=== PATIENT | male | born 1955 | race Caucasian/White ===

== ENCOUNTER 2018-02-26 14:06 | Emergency (ER) | payer MEDICARE, OTHER ==
[~2018-02-26] VITALS: Ht 172.7 cm; Wt 72.6 kg
--- OUTSIDE RECORDS SUMMARY | 2018-02-26 14:16 | XMS REPORT | Clinical Summary ---
Author Author Admin, E Organization [facility] Address Unknown Phone Unavailable Allergies, Adverse Reactions, Alerts Allergy Name Reaction Description Start Date Severity Status Provider NEURONTIN makes him paranoid Critical Active Wily Gonzalez DO LIDODERM preload Critical Active Paula Cooney RN BACTRIM preload Critical Active Paula Cooney RN Conditions or Problems Problem Name Problem Code Onset Date Status Entry Date Provider Comment Standard Description Annotate HYPERTENSION 401.9 Active Megan Vargas RN Unspecified essential hypertension BACK PAIN, LUMBAR 724.2 Active Esvin PAULA Lumbago ANKLE PAIN 719.47 Active Esvin PAULA Pain in joint involving ankle and foot GERD 530.81 Active Esvin PAULA Esophageal reflux ANXIETY 300.00 Active Esvin PAULA Anxiety state, unspecified FH DIABETES V18.0 Resolved Wily Gonzalez DO Family history of diabetes mellitus SPECIAL SCREENING MALIGNANT NEOPLASM OF PROSTATE V76.44 Active Esvin PAULA Screening for malignant neoplasms of prostate ANEMIA 285.9 Active Esvin PAULA Anemia, unspecified Tinea corporis 110.5 Resolved Wily Gonzalez DO Dermatophytosis of the body Tinea corporis 110.5 Resolved Wily Gonzalez DO Dermatophytosis of the body Hemorrhoids 455.6 Active Wily Gonzalez DO Unspecified hemorrhoids without mention of complication Nocturia 788.43 Resolved Wily Gonzalez DO Nocturia U T I 599.0 Inactive Wily Gonzalez DO Urinary tract infection, site not specified U R I 465.9 Inactive Wily Gonzalez DO Acute upper respiratory infections of unspecified site Health screening V70.0 Active Wily Gonzalez DO Routine general medical examination at a health care facility FH DIABETES ICD-V18.0 Inactive Wily Gonzalez DO Tinea corporis ICD-110.5 Inactive Wily Gonzalez DO Tinea corporis ICD-110.5 Inactive Wily Gonzalez DO Nocturia ICD-788.43 Inactive Wily Gonzalez DO U T I ICD-599.0 Inactive Wily Gonzalez DO U R I ICD-465.9 Inactive Wily Gonzalez DO Medication List Medication Instructions Start Date Stop Date Generic Name NDC Status Provider Patient Instruction CLEMASTINE FUMARATE 1.34 MG ORAL TABS 1 tab PO BID CLEMASTINE FUMARATE 35287101734 No Longer Active Wily Gonzalez DO Active FLOMAX 0.4 MG CAPS 1 capsule in the evening for night time urination. TAMSULOSIN HCL 31565827615 No Longer Active Wily Gonzalez DO Active PROTONIX 40 MG TBEC 1 po daily PANTOPRAZOLE SODIUM 59433000592 Active Wily Gonzalez DO Active HYDROXYZINE HCL 25 MG TAB 1 two times a day as needed for anxiety HYDROXYZINE HCL 04884989643 No Longer Active Wily Gonzalez DO Active ANUSOL-HC 25 MG SUPPOSITORY 1 rectally every 12 hours for irritation HYDROCORTISONE NAEL (RECTAL) 84497973288 No Longer Active Wily Gonzalez DO Active HYDROXYZINE HCL 25 MG TABS Take one (1) tablet by mouth twice a day HYDROXYZINE HCL 15019693228 No Longer Active Wily Goznalez DO Active ZIAC 2.5-6.25 MG TAB 1 tablet daily for high blood pressure 10/27 BISOPROLOL-HCTZ 91310188680 No Longer Active Wily Gonzalez DO Active [id number] 167-83-8 MG TABS 1 tab po daily CALCIUM -MAGNESIUM-ZINC 33931679968 Active Wily Gonzalez DO Active NYSTATIN 524947 UNIT/GM CREA apply to rash TID PRN NYSTATIN 03588923087 Active Wily Gonzalez DO Active ZIAC 2.5-6.25 MG TAB 1 tablet every morning for high blood pressure BISOPROLOL-HCTZ 47037129439 No Longer Active Wily Gonzalez DO Active AMOXICILLIN 500 MG CAPS Take one (1) tablet by mouth three times a day 05/05 AMOXICILLIN 58507550946 No Longer Active Wily Gonzalez DO Active MORPHINE SULFATE ER 100 MG CR-TABS Take one (1) tablet by mouth twice a day MORPHINE SULFATE 48605625567 No Longer Active Wily Gonzalez DO Active MORPHINE SULFATE ER 100 MG [id number] 1 capsule twice daily for chronic pain MORPHINE SULFATE 80240519849 Active Wily Gonzalez DO Active FLONASE 50 MCG/ACT SUSP 2 sprays each nare q day FLUTICASONE PROPIONATE 79132442127 Active Marylou Melissa RPT,RMA Active CIALIS 10 MG TABS 1 every 72 hours as needed TADALAFIL 42982864119 No Longer Active Esvin PAULA Active FLONASE 50 MCG/ACT SUSP 2 SPRAY EACH NARE DAILY FLUTICASONE PROPIONATE 91681934042 No Longer Active Esvin PAULA Active CYCLOBENZAPRINE HCL 10 MG TABS Take one (1) tablet by mouth three times a day CYCLOBENZAPRINE HCL 50867005570 Active Wily Gonzalez DO Active OPANA ER (CRUSH RESISTANT) 40 MG [id number] Take one (1) tablet by mouth twice a day OXYMORPHONE HCL 33097123022 No Longer Active Esvin PAULA Active POLY-IRON 150 150 MG CAPS 1 tab po bid POLYSACCHARIDE IRON COMPLEX 05417823260 Active Esvin PAULA Active PROAIR HFA 108 (90 BASE) MCG/ACT AERS 2 puffs every four hours as needed ALBUTEROL SULFATE 61099970519 No Longer Active Esvin PAULA Active CLEARLAX POWD 17gm q day prn constipation POLYETHYLENE GLYCOL 3350 66658537900 Active Jonas PAULA Active MORPHINE SULFATE ER 100 MG [id number] Take one (1) tablet by mouth twice a day MORPHINE SULFATE 75987384749 No Longer Active Esvin PAULA Active FLEXERIL 10 MG TAB 1 tablet by mouth 3 times daily as needed CYCLOBENZAPRINE HCL 70504190606 No Longer Active Esvin PAULA Active CELEBREX 200 MG CAPS 1 tablet by mouth twice daily with meals CELECOXIB 21928441272 No Longer Active Esvin PAULA Active NEXIUM 40 MG CPDR 1 cap daily ESOMEPRAZOLE MAGNESIUM 61220921159 No Longer Active Esvin PAULA Active MOBIC 15 MG TABS 1 tab daily MELOXICAM 28781448211 No Longer Active Esvin PAULA Active LISINOPRIL 20 MG TABS Take 1 tablet by mouth daily LISINOPRIL 18791560450 No Longer Active Esvin PAULA Active DICLOFENAC SODIUM 50 MG TBEC 1 tablet by mouth four times daily DICLOFENAC SODIUM 19055313808 No Longer Active Paula Cooney RN Active VERAMYST 27.5 MCG/SPRAY SUSP 2 spray each nare daily FLUTICASONE FUROATE 53039837687 No Longer Active Megan Vargas RN Active ENDOCET 10-325 MG TABS Take one (1) tablet by mouth three times a day OXYCODONE-ACETAMINOPHEN 61337315819 Active Wily Gonzalez DO Active ALPRAZOLAM 2 MG TABS Take one (1) tablet by mouth three times a day ALPRAZOLAM 30728040041 Active Jonas PAULA Active NEXIUM 40 MG CPDR 1 cap by mouth daily ESOMEPRAZOLE MAGNESIUM 90090763439 No Longer Active Esvin PAULA Active ALPRAZOLAM 2 MG TABS 1 tablet by mouth three times daily as needed ALPRAZOLAM 41909314484 No Longer Active Esvin PAULA Active HYDROXYZINE HCL 25 MG TAB take 1 every 4-6 hours as needed 07/01 HYDROXYZINE HCL 60332128220 No Longer Active Esvin PAULA Active ENDOCET 10-325 MG TABS 1 by mouth twice a day OXYCODONE-ACETAMINOPHEN 27456206719 No Longer Active Esvin PAULA Active MS CONTIN 100 MG [id number]-MEW 1 by mouth twice a day MORPHINE SULFATE 57223608173 No Longer Active Esvin PAULA Active SUDAFED 30 MG TAB 1-2 every 4-6 hours as needed PSEUDOEPHEDRINE HCL 68086457983 Active Marylou Melissa RPT,RMA Active VERAMYST 27.5 MCG/SPRAY SUSP 2 spray each nare daily VERAMYST 27.5 MCG/SPRAY SUSP FLUTICASONE FUROATE Inactive DICLOFENAC SODIUM 50 MG TBEC 1 tablet by mouth four times daily DICLOFENAC SODIUM 50 MG TBEC 953942 DICLOFENAC SODIUM Inactive LISINOPRIL 20 MG TABS Take 1 tablet by mouth daily LISINOPRIL 20 MG TABS 163405 LISINOPRIL Inactive MOBIC 15 MG TABS 1 tab daily MOBIC 15 MG TABS 541444 MELOXICAM Inactive NEXIUM 40 MG CPDR 1 cap daily NEXIUM 40 MG CPDR 605668 ESOMEPRAZOLE MAGNESIUM Inactive CELEBREX 200 MG CAPS 1 tablet by mouth twice daily with meals CELEBREX 200 MG CAPS 186955 CELECOXIB Inactive FLEXERIL 10 MG TAB 1 tablet by mouth 3 times daily as needed FLEXERIL 10 MG TAB CYCLOBENZAPRINE HCL Inactive PROAIR HFA 108 (90 BASE) MCG/ACT AERS 2 puffs every four hours as needed PROAIR HFA 108 (90 BASE) MCG/ACT AERS ALBUTEROL SULFATE Inactive FLONASE 50 MCG/ACT SUSP 2 SPRAY EACH NARE DAILY FLONASE 50 MCG/ACT SUSP FLUTICASONE PROPIONATE Inactive CIALIS 10 MG TABS 1 every 72 hours as needed CIALIS 10 MG TABS TADALAFIL Inactive MORPHINE SULFATE ER 100 MG CR-TABS Take one (1) tablet by mouth twice a day MORPHINE SULFATE ER 100 MG CR-TABS MORPHINE SULFATE Inactive AMOXICILLIN 500 MG CAPS Take one (1) tablet by mouth three times a day 05/05 AMOXICILLIN 500 MG CAPS 869425 AMOXICILLIN Inactive ZIAC 2.5-6.25 MG TAB 1 tablet every morning for high blood pressure ZIAC 2.5-6.25 MG TAB 047862 BISOPROLOL-HCTZ Inactive ZIAC 2.5-6.25 MG TAB 1 tablet daily for high blood pressure 10/27 ZIAC 2.5-6.25 MG TAB 774124 BISOPROLOL-HCTZ Inactive HYDROXYZINE HCL 25 MG TABS Take one (1) tablet by mouth twice a day HYDROXYZINE HCL 25 MG TABS 748360 HYDROXYZINE HCL Inactive ANUSOL-HC 25 MG SUPPOSITORY 1 rectally every 12 hours for irritation ANUSOL-HC 25 MG SUPPOSITORY 6656013 HYDROCORTISONE NAEL (RECTAL ) Inactive HYDROXYZINE HCL 25 MG TAB 1 two times a day as needed for anxiety HYDROXYZINE HCL 25 MG TAB 325263 HYDROXYZINE HCL Inactive FLOMAX 0.4 MG CAPS 1 capsule in the evening for night time urination. FLOMAX 0.4 MG CAPS 247301 TAMSULOSIN HCL Inactive CLEMASTINE FUMARATE 1.34 MG ORAL TABS 1 tab PO BID CLEMASTINE FUMARATE 1.34 MG ORAL TABS 232713 CLEMASTINE FUMARATE Inactive MS CONTIN 100 MG [id number] 1 by mouth twice a day MS CONTIN 100 MG [id number] MORPHINE SULFATE Inactive ENDOCET 10-325 MG TABS 1 by mouth twice a day ENDOCET 10-325 MG TABS 8324580 OXYCODONE-ACETAMINOPHEN Inactive HYDROXYZINE HCL 25 MG TAB take 1 every 4-6 hours as needed 07/01 HYDROXYZINE HCL 25 MG TAB 561767 HYDROXYZINE HCL Inactive ALPRAZOLAM 2 MG TABS 1 tablet by mouth three times daily as needed ALPRAZOLAM 2 MG TABS 093882 ALPRAZOLAM Inactive NEXIUM 40 MG CPDR 1 cap by mouth daily NEXIUM 40 MG CPDR 871073 ESOMEPRAZOLE MAGNESIUM Inactive Advance Directives Directive Description Start Date PERMISSION TO SHARE Vital Signs Date Name Value Unit Range Description blood pressure, diastolic - 8462-4 90 mm[Hg] BP stoddard blood pressure, systolic - 8480-6 134 mm[Hg] BP sys pulse rate E&M - 8867-4 105 /min Heart rate temperature E&M 97.9 [degF] Body temperature weight E&M - 3141-9 165 [lb_av] Weight Measured blood pressure, diastolic - 8462-4 80 mm[Hg] BP stoddard blood pressure, systolic - 8480-6 116 mm[Hg] BP sys pulse rate E&M - 8867-4 92 /min Heart rate temperature E&M 97.9 [degF] Body temperature weight E&M - 3141-9 175 [lb_av] Weight Measured blood pressure, diastolic - 8462-4 90 mm[Hg] BP stoddard blood pressure, systolic - 8480-6 149 mm[Hg] BP sys pulse rate E&M - 8867-4 87 /min Heart rate temperature E&M 96.9 [degF] Body temperature weight E&M - 3141-9 175.2 [lb_av] Weight Measured blood pressure, diastolic - 8462-4 82 mm[Hg] BP stoddard blood pressure, systolic - 8480-6 123 mm[Hg] BP sys pulse rate E&M - 8867-4 103 /min Heart rate temperature E&M 98.7 [degF] Body temperature weight E&M - 3141-9 174.2 [lb_av] Weight Measured Diagnostic Results Date Name Value Unit Range Description Chart Maintenance: Hemoccult added to flowsheet - Chemistry occult blood, stool (E&M) Negative Lab Report: CBC, Comp. Metabolic Panel, Thyroid Stimulating Hormone (L), ... - Chemistry sodium, serum 138 mmol/L 248-124 7639/04/13 potassium, serum 4.9 mmol/L 3.5-5.2 chloride, serum 99 mmol/L 98-107 carbon dioxide, venous blood 35.9 mmol/L 21.0-32.0 blood glucose 60 mg/dL 65-110 urea nitrogen, blood 8 mg/dL 7-18 creatinine, serum 0.90 mg/dL 0.60-1.30 alanine aminotransferase (SGPT), serum 23 U/L 12-78 aspartate aminotransferase (SGOT), serum 20 U/L 15-37 calcium, serum 8.5 mg/dL 8.5-10.1 bilirubin, serum, total 0.30 mg/dL 0.00-1.00 TSH 0.73 m[iU]/mL 0.36-3.74 thyroxine, serum, free 1.22 ng/dL 0.76-1.46 Lab Report: CBC, Comp. Metabolic Panel, Thyroid Stimulating Hormone (L), ... - Hematology leukocyte count, blood 6.1 10^3/MM^3 10*3/mm3 4.6-10.2 erythrocyte (RBC) count 3.99 10^6/MM^3 10*6/mm3 4.69-6.13 hemoglobin, blood 12.5 g/dL 13.5-17.5 hematocrit, blood 36.7 % 41.0-53.0 mean corpuscular volume, RBC 92 fL 80-97 mean corpuscular hemoglobin, RBC 31.2 pg 27.0-31.2 mean corpuscular hemoglobin concentration, RBC 34.0 G/DL % 31.8- 35.4 red blood cell distribution width 14.9 % 11.6-14.8 platelet count 227 10^3/MM^3 10*3/mm3 142-424 Encounters Code Encounter Date Provider Facility CPT-01916 Level 3 Est. Patient 10:04:45 CDT Wily Gonzalez [facility] CPT-95399 Level 3 Est. Patient 13:04:06 CDT Wily Gonzalez [facility] CPT-86245 Level 3 Est. Patient 12:23:04 CDT Wily Gonzalez [facility] CPT-34741 Level 3 Est. Patient 15:43:10 AGRICULTURAL PILOT Wily Gonzalez [facility] CPT-57114 Level 3 Est. Patient 16:10:54 CDT Wily Gonzalez [facility] CPT-27293 Level 3 Est. Patient 19:50:51 CDT Wily Gonzalez [facility] CPT-32434 Level 3 Est. Patient 12:02:30 AGRICULTURAL PILOT Wily Gonzalez [facility] CPT-50746 Level 3 Est. Patient 12:03:11 AGRICULTURAL PILOT Wily Gonzalez [facility] CPT-40249 Level 3 Est. Patient 12:01:41 AGRICULTURAL PILOT Wily Gonzalez [facility] CPT-67356 Level 3 Est. Patient 11:51:24 AGRICULTURAL PILOT Wily Gonzalez [facility] CPT-96870 Level 3 Est. Patient 11:58:20 AGRICULTURAL PILOT Wily Gonzalez [facility] CPT-36118 Level 3 Est. Patient 08:31:36 AGRICULTURAL PILOT Wily Gonzalez [facility] CPT-28310 Level 3 Est. Patient 21:57:36 CDT Wily Gonzalez [facility] CPT-43318 Level 3 Est. Patient 10:49:58 CDT Esvin PAULA [facility] CPT-78899 Level 3 Est. Patient 11:22:52 CDT Esvin PAULA [facility] CPT-83766 Level 3 Est. Patient 13:49:41 CDT Esvin PAULA [facility] CPT-26530 Level 3 Est. Patient 11:54:53 CDT Esvin PAULA [facility] CPT-71530 Level 3 Est. Patient 09:07:11 CDT Esvin PAULA [facility] CPT-54188 Level 3 Est. Patient 13:52:47 CDT Esvin PAULA [facility] CPT-62999 Level 3 Est. Patient 11:26:46 CDT Esvin PAULA [facility] CPT-42568 Level 3 Est. Patient 10:25:00 AGRICULTURAL PILOT Esvin PAULA [facility] CPT-89864 Level 3 Est. Patient 11:39:11 AGRICULTURAL PILOT Esvin PAULA [facility] CPT-91025 Level 3 Est. Patient 13:24:24 AGRICULTURAL PILOT Esvin PAULA [facility] CPT-88587 Level 3 Est. Patient 10:26:13 AGRICULTURAL PILOT Esvin PAULA [facility] CPT-77993 Level 3 Est. Patient 10:21:21 CDT Esvin [facility] CPT-10893 Level 3 Est. Patient 10:26:30 CDT Esvin Mobile PA [facility] CPT-68108 Level 3 Est. Patient 09:16:37 CDT Esvin Tristan PA [facility] CPT-67788 Level 3 Est. Patient 09:06:58 CDT Esvin Mobile PA [facility] CPT-38210 Level 3 Est. Patient 10:05:29 CDT Esvin Mobile PA [facility] CPT-28128 Level 3 Est. Patient 10:38:45 CDT Esvin Tristan PA [facility] CPT-36648 Level 3 Est. Patient 10:09:45 CDT Esvin PAULA [facility] CPT-61416 Level 3 Est. Patient 09:26:37 CDT Esvin PAULA [facility] CPT-73163 Level 3 Est. Patient 10:34:42 AGRICULTURAL PILOT Esvin Tristan PA [facility] CPT-82234 Level 3 Est. Patient 10:45:47 AGRICULTURAL PILOT Esvin PAULA [facility] CPT-67899 Level 3 Est. Patient 10:45:22 AGRICULTURAL PILOT Esvin Tristan [facility] CPT-93976 Level 3 Est. Patient 14:18:30 AGRICULTURAL PILOT Esvin PAULA [facility] CPT-45205 Level 3 Est. Patient 13:53:29 AGRICULTURAL PILOT Esvin [facility] CPT-82197 Level 3 Est. Patient 10:34:11 CDT Esvin PAULA [facility] Procedures Code Procedure Name Date Entry Date Standard Description CPT-66731 Venipuncture Draw Fee 09:26:55 CDT CPT-23762 Venipuncture Draw Fee 11:55:52 CDT CPT-71791 Spec Collection and Handling Fee 09:16:37 CDT CPT-93952 Venipuncture Draw Fee 09:16:37 CDT
--- OUTSIDE RECORDS SUMMARY | 2018-02-26 14:16 | XMS REPORT | Clinical Summary ---
Author Author Admin, E Organization [facility] Address Unknown Phone Unavailable Allergies, Adverse Reactions, Alerts Allergy Name Reaction Description Start Date Severity Status Provider NEURONTIN makes him paranoid Critical Active Wily Gonzalez DO LIDODERM preload Critical Active Paula Cooney RN BACTRIM preload Critical Active Paula Cooney RN Conditions or Problems Problem Name Problem Code Onset Date Status Entry Date Provider Comment Standard Description Annotate HYPERTENSION 401.9 Resolved Wily Gonzalez DO Unspecified essential hypertension BACK PAIN, LUMBAR 724.2 Active Esvin PAULA Lumbago ANKLE PAIN 719.47 Resolved Wily Gonzalez DO Pain in joint involving ankle and foot GERD 530.81 Active Esvin PAULA Esophageal reflux ANXIETY 300.00 Active Esvin PAULA Anxiety state, unspecified FH DIABETES V18.0 Resolved Wily Gonzalez DO Family history of diabetes mellitus SPECIAL SCREENING MALIGNANT NEOPLASM OF PROSTATE V76.44 Active Esvin PAULA Screening for malignant neoplasms of prostate ANEMIA 285.9 Resolved Wily Gonzalez DO Anemia, unspecified Tinea corporis 110.5 Resolved Wily Gonzalez DO Dermatophytosis of the body Tinea corporis 110.5 Resolved Wily Gonzalez DO Dermatophytosis of the body Hemorrhoids 455.6 Resolved Wily Gonzalez DO Unspecified hemorrhoids without mention of complication Nocturia 788.43 Resolved Wily Gonzalez DO Nocturia U T I 599.0 Inactive Wily Gonzalez DO Urinary tract infection, site not specified U R I 465.9 Inactive Wily Gonzalez DO Acute upper respiratory infections of unspecified site Health screening V70.0 Active Wily Gonzalez DO Routine general medical examination at a health care facility HYPERTENSION ICD-401.9 Inactive Wily Gonzalez DO ANKLE PAIN ICD-719.47 Inactive Wily Gonzalez DO 05/08 FH DIABETES ICD-V18.0 Inactive Wily Gonzalez DO ANEMIA ICD-285.9 Inactive Wily Gonzalez DO Tinea corporis ICD-110.5 Inactive Wily Gonzalez DO Tinea corporis ICD-110.5 Inactive Wily Gonzalez DO Hemorrhoids ICD-455.6 Inactive Wily Gonzalez DO 05/08 Nocturia ICD-788.43 Inactive Wily Gonzalez DO U T I ICD-599.0 Inactive Wily Gonzalez DO U R I ICD-465.9 Inactive Wily Gonzalez DO Medication List Medication Instructions Start Date Stop Date Generic Name NDC Status Provider Patient Instruction [id number] 167-83-8 MG TABS 1 tab po daily [id number] 54237618843 No Longer Active Wily Gonzalez DO Active NYSTATIN 011088 UNIT/GM CREA apply to rash TID PRN NYSTATIN 14358351090 No Longer Active Wily Gonzalez DO Active POLY-IRON 150 150 MG CAPS 1 tab po bid POLYSACCHARIDE IRON COMPLEX 80801149200 No Longer Active Wily Gonzalez DO Active FLONASE ALLERGY RELIEF 50 MCG/ACT NASAL SUSP 2 sprays each nostril every day FLUTICASONE PROPIONATE 69042267253 Active Wily Gonzalez DO Active CLEMASTINE FUMARATE 1.34 MG ORAL TABS 1 tab PO BID CLEMASTINE FUMARATE 95874052435 No Longer Active Wily Gonzalez DO Active FLOMAX 0.4 MG CAPS 1 capsule in the evening for night time urination. TAMSULOSIN HCL 87217551430 No Longer Active Wily Gonzalez DO Active PROTONIX 40 MG TBEC 1 po daily PANTOPRAZOLE SODIUM 55186654898 Active Agnieszka Yeung Active HYDROXYZINE HCL 25 MG TAB 1 two times a day as needed for anxiety HYDROXYZINE HCL 99241362574 No Longer Active Wiyl Gonzalez DO Active ANUSOL-HC 25 MG SUPPOSITORY 1 rectally every 12 hours for irritation HYDROCORTISONE NAEL (RECTAL) 12417233421 No Longer Active Wily Gonzalez DO Active HYDROXYZINE HCL 25 MG TABS Take one (1) tablet by mouth twice a day HYDROXYZINE HCL 89449173346 No Longer Active Wily Gonzalez DO Active ZIAC 2.5-6.25 MG TAB 1 tablet daily for high blood pressure 10/27 BISOPROLOL-HCTZ 02977635733 No Longer Active Wily Gonzalez DO Active ZIAC 2.5-6.25 MG TAB 1 tablet every morning for high blood pressure BISOPROLOL-HCTZ 40910724202 No Longer Active Wily Gonzalez DO Active AMOXICILLIN 500 MG CAPS Take one (1) tablet by mouth three times a day 05/05 AMOXICILLIN 35791909447 No Longer Active Wily Gonzalez DO Active MORPHINE SULFATE ER 100 MG CR-TABS Take one (1) tablet by mouth twice a day MORPHINE SULFATE 14577226538 No Longer Active Wily Gonzalez DO Active MORPHINE SULFATE ER 100 MG [id number] 1 capsule twice daily for chronic pain MORPHINE SULFATE 55623899896 Active Marylou Melissa RPT,RMA Active CIALIS 10 MG TABS 1 every 72 hours as needed TADALAFIL 83420210929 No Longer Active Esvin PAULA Active FLONASE 50 MCG/ACT SUSP 2 SPRAY EACH NARE DAILY FLUTICASONE PROPIONATE 60605594926 No Longer Active Esvin PAULA Active CYCLOBENZAPRINE HCL 10 MG TABS Take one (1) tablet by mouth three times a day CYCLOBENZAPRINE HCL 65588604117 Active Wily Gonzalez DO Active OPANA ER (CRUSH RESISTANT) 40 MG [id number] Take one (1) tablet by mouth twice a day OXYMORPHONE HCL 53589838466 No Longer Active Esvin PAULA Active PROAIR HFA 108 (90 BASE) MCG/ACT AERS 2 puffs every four hours as needed ALBUTEROL SULFATE 14009901534 No Longer Active Esvin PAULA Active CLEARLAX POWD 17gm q day prn constipation POLYETHYLENE GLYCOL 3350 00227428740 Active Kaylen Leigh MA Active MORPHINE SULFATE ER 100 MG [id number] Take one (1) tablet by mouth twice a day MORPHINE SULFATE 13830851901 No Longer Active Esvin PAULA Active FLEXERIL 10 MG TAB 1 tablet by mouth 3 times daily as needed CYCLOBENZAPRINE HCL 66023299386 No Longer Active Esvin PALUA Active CELEBREX 200 MG CAPS 1 tablet by mouth twice daily with meals CELECOXIB 57460111030 No Longer Active Esvin PAULA Active NEXIUM 40 MG CPDR 1 cap daily ESOMEPRAZOLE MAGNESIUM 58039672801 No Longer Active Esvin PAULA Active MOBIC 15 MG TABS 1 tab daily MELOXICAM 25757565839 No Longer Active Esvin PAULA Active LISINOPRIL 20 MG TABS Take 1 tablet by mouth daily LISINOPRIL 49527360788 No Longer Active Esvin PAULA Active DICLOFENAC SODIUM 50 MG TBEC 1 tablet by mouth four times daily DICLOFENAC SODIUM 66462743187 No Longer Active Paula Cooney RN Active VERAMYST 27.5 MCG/SPRAY SUSP 2 spray each nare daily FLUTICASONE FUROATE 07705251298 No Longer Active Megan Alicia CARVAJAL Active ENDOCET 10-325 MG TABS Take one (1) tablet by mouth three times a day OXYCODONE-ACETAMINOPHEN 58185591821 Active Marylou Melissa RPT,RMA Active ALPRAZOLAM 2 MG TABS Take one (1) tablet by mouth three times a day ALPRAZOLAM 52262249375 Active Kaylen Leigh MA Active NEXIUM 40 MG CPDR 1 cap by mouth daily ESOMEPRAZOLE MAGNESIUM 31034682940 No Longer Active Esvin PAULA Active ALPRAZOLAM 2 MG TABS 1 tablet by mouth three times daily as needed ALPRAZOLAM 39233593633 No Longer Active Esvin PAULA Active HYDROXYZINE HCL 25 MG TAB take 1 every 4-6 hours as needed 07/01 HYDROXYZINE HCL 86198348966 No Longer Active Esvin PAULA Active ENDOCET 10-325 MG TABS 1 by mouth twice a day OXYCODONE-ACETAMINOPHEN 95129155667 No Longer Active Esvin PAULA Active MS CONTIN 100 MG [id number] 1 by mouth twice a day MORPHINE SULFATE 83363290856 No Longer Active Esvin PAULA Active SUDAFED 30 MG TAB 1-2 every 4-6 hours as needed PSEUDOEPHEDRINE HCL 78843258894 Active Marylou Melissa RPT,RMA Active VERAMYST 27.5 MCG/SPRAY SUSP 2 spray each nare daily VERAMYST 27.5 MCG/SPRAY SUSP FLUTICASONE FUROATE Inactive DICLOFENAC SODIUM 50 MG TBEC 1 tablet by mouth four times daily DICLOFENAC SODIUM 50 MG TBEC 019722 DICLOFENAC SODIUM Inactive LISINOPRIL 20 MG TABS Take 1 tablet by mouth daily LISINOPRIL 20 MG TABS 396707 LISINOPRIL Inactive MOBIC 15 MG TABS 1 tab daily MOBIC 15 MG TABS 096763 MELOXICAM Inactive NEXIUM 40 MG CPDR 1 cap daily NEXIUM 40 MG CPDR 652680 ESOMEPRAZOLE MAGNESIUM Inactive CELEBREX 200 MG CAPS 1 tablet by mouth twice daily with meals CELEBREX 200 MG CAPS 502751 CELECOXIB Inactive FLEXERIL 10 MG TAB 1 [...] a day 05/05 AMOXICILLIN 500 MG CAPS 505276 AMOXICILLIN Inactive ZIAC 2.5-6.25 MG TAB 1 tablet every morning for high blood pressure ZIAC 2.5-6.25 MG TAB 693291 BISOPROLOL-HCTZ Inactive ZIAC 2.5-6.25 MG TAB 1 tablet daily for high blood pressure 10/27 ZIAC 2.5-6.25 MG TAB 951861 BISOPROLOL-HCTZ Inactive HYDROXYZINE HCL 25 MG TABS Take one (1) tablet by mouth twice a day HYDROXYZINE HCL 25 MG TABS 405300 HYDROXYZINE HCL Inactive ANUSOL-HC 25 MG SUPPOSITORY 1 rectally every 12 hours for irritation ANUSOL-HC 25 MG SUPPOSITORY 9868013 HYDROCORTISONE NAEL (RECTAL ) Inactive HYDROXYZINE HCL 25 MG TAB 1 two times a day as needed for anxiety HYDROXYZINE HCL 25 MG TAB 723947 HYDROXYZINE HCL Inactive FLOMAX 0.4 MG CAPS 1 capsule in the evening for night time urination. FLOMAX 0.4 MG CAPS 492800 TAMSULOSIN HCL Inactive CLEMASTINE FUMARATE 1.34 MG ORAL TABS 1 tab PO BID CLEMASTINE FUMARATE 1.34 MG ORAL TABS 376735 CLEMASTINE FUMARATE Inactive POLY-IRON 150 150 MG CAPS 1 tab po bid POLY-IRON 150 150 MG CAPS POLYSACCHARIDE IRON COMPLEX Inactive NYSTATIN 353908 UNIT/GM CREA apply to rash TID PRN NYSTATIN 550864 UNIT/GM CREA 237591 NYSTATIN Inactive [id number] 167-83-8 MG TABS 1 tab po daily [id number] 167-83-8 MG TABS [id number] Inactive MS CONTIN 100 MG [id number]-VUX 1 by mouth twice a day MS CONTIN 100 MG QY23W-[id number] MORPHINE SULFATE Inactive ENDOCET 10-325 MG TABS 1 by mouth twice a day ENDOCET 10-325 MG TABS 9257896 OXYCODONE-ACETAMINOPHEN Inactive HYDROXYZINE HCL 25 MG TAB take 1 every 4-6 hours as needed 07/01 HYDROXYZINE HCL 25 MG TAB 441767 HYDROXYZINE HCL Inactive ALPRAZOLAM 2 MG TABS 1 tablet by mouth three times daily as needed ALPRAZOLAM 2 MG TABS 062926 ALPRAZOLAM Inactive NEXIUM 40 MG CPDR 1 cap by mouth daily NEXIUM 40 MG CPDR 663967 ESOMEPRAZOLE MAGNESIUM Inactive Advance Directives Directive Description Start Date PERMISSION TO SHARE Vital Signs Date Name Value Unit Range Description blood pressure, diastolic - 8462-4 84 mm[Hg] BP stoddard blood pressure, systolic - 8480-6 118 mm[Hg] BP sys pulse rate E&M - 8867-4 100 /min Heart rate temperature E&M 97.8 [degF] Body temperature weight E&M - 3141-9 171.5 [lb_av] Weight Measured blood pressure, diastolic - 8462-4 83 mm[Hg] BP stoddard blood pressure, systolic - 8480-6 132 mm[Hg] BP sys pulse rate E&M - 8867-4 88 /min Heart rate temperature E&M 97.6 [degF] Body temperature weight E&M - 3141-9 1174 [lb_av] Weight Measured blood pressure, diastolic - 8462-4 94 mm[Hg] BP stoddard blood pressure, systolic - 8480-6 147 mm[Hg] BP sys pulse rate E&M - 8867-4 103 /min Heart rate temperature E&M 97.6 [degF] Body temperature weight E&M - 3141-9 172.5 [lb_av] Weight Measured Diagnostic Results Date Name Value Unit Range Description Lab Report: CBC - Hematology leukocyte count, blood 5.7 10^3/MM^3 10*3/mm3 4.6-10.2 erythrocyte (RBC) count 4.49 10^6/MM^3 10*6/mm3 4.69-6.13 hemoglobin, blood 14.0 g/dL 13.5-17.5 hematocrit, blood 41.9 % 41.0-53.0 mean corpuscular volume, RBC 93 fL 80-97 mean corpuscular hemoglobin, RBC 31.1 pg 27.0-31.2 mean corpuscular hemoglobin concentration, RBC 33.3 G/DL % 31.8- 35.4 red blood cell distribution width 14.6 % 11.6-14.8 platelet count 269 10^3/MM^3 10*3/mm3 142-424 Lab Report: Comp. Metabolic Panel, Lipid Panel, Thyroid Stimulating Horm ... - Chemistry sodium, serum 140 mmol/L 683-369 3395/03/25 carbon dioxide, venous blood 31.3 mmol/L 21.0-32.0 potassium, serum 4.0 mmol/L 3.5-5.2 chloride, serum 101 mmol/L 98-107 blood glucose 96 mg/dL 65-110 urea nitrogen, blood 7 mg/dL 7-18 creatinine, serum 0.94 mg/dL 0.55-1.30 alanine aminotransferase (SGPT), serum 23 U/L 12-78 aspartate aminotransferase (SGOT), serum 21 U/L 15-37 calcium, serum 8.9 mg/dL 8.5-10.1 bilirubin, serum, total 0.30 mg/dL 0.00-1.00 cholesterol, serum 169 mg/dL 695-431 2350/03/25 triglyceride, serum, fasting 143 mg/dL 30-200 HDL cholesterol, serum 61 mg/dL 32-96 LDL cholesterol, serum 79 mg/dL 0-130 TSH 1.28 m[iU]/mL 0.36-3.74 Lab Report: UADIP W/MICRO, AUTO - Chemistry protein, total urine random Negative mg/dL Negative RBC, urine, dipstick Negative Negative Lab Report: UADIP W/MICRO, AUTO - Urinalysis urobilinogen, urine, semiquantitative (dipstick) 0.2 Normal leukocyte esterase, urine, by dipstick Negative Negative nitrite, urine, semiquantitative Negative Negative glucose, urine, semiquantitative Negative Negative ketones, urine, by test strip Negative Negative bilirubin, urine Negative Negative urine color Yellow Colorless;Lightyellow;Straw;Yellow appearance, urine Clear Clear specific gravity, urine <=1.005 1.000-1.030 pH, urine, semiquantitative 6.5 5.0-8.5 Encounters Code Encounter Date Provider Facility CPT-82396 Level 3 Est. Patient 11:07:48 CDT Wily Gonzalez [facility] CPT-21710 Level 3 Est. Patient 11:24:24 CDT Wily Gonzalez [facility] CPT-86182 Level 3 Est. Patient 15:19:54 STREET[employer] DISPATCHER Wily Gonzalez [facility] CPT-63357 Level 3 Est. Patient 10:04:45 CDT Wily Gonzalez [facility] CPT-71240 Level 3 Est. Patient 13:04:06 CDT Wily Gonzalez [facility] CPT-25112 Level 3 Est. Patient 12:23:04 CDT Wily Gonzalez [facility] CPT-56397 Level 3 Est. Patient 15:43:10 STREETCAR DISPATCHER Wily Gonzalez [facility] CPT-41157 Level 3 Est. Patient 16:10:54 CDT Wily Zhang [facility] CPT-48288 Level 3 Est. Patient 19:50:51 CDT Wily Gonzalez [facility] CPT-79932 Level 3 Est. Patient 12:02:30 STREET[employer] DISPATCHER Wily Gonzalez [facility] CPT-00247 Level 3 Est. Patient 12:03:11 STREETCAR DISPATCHER Wily Zhang Carlos [facility] CPT-20516 Level 3 Est. Patient 12:01:41 STREETCAR DISPATCHER Wily Vicente Carlos [facility] CPT-70779 Level 3 Est. Patient 11:51:24 STREETCAR DISPATCHER Wily Vicente Carlos [facility] CPT-47627 Level 3 Est. Patient 11:58:20 STREETCAR DISPATCHER Wily Gonzalez [facility] CPT-07742 Level 3 Est. Patient 08:31:36 STREETCAR DISPATCHER Wily Gonzalez [facility] CPT-22074 Level 3 Est. Patient 21:57:36 CDT Wily Vicente Carlos [facility] CPT-28483 Level 3 Est. Patient 10:49:58 CDT Esivn PAULA [facility]-31115 Level 3 Est. Patient 11:22:52 CDT Esvin PAULA [facility] CPT-74923 Level 3 Est. Patient 13:49:41 CDT Esvin PAULA [facility] CPT-77500 Level 3 Est. Patient 11:54:53 CDT Esvin PAULA [facility] CPT-26480 Level 3 Est. Patient 09:07:11 CDT Esvin PAULA [facility] CPT-16184 Level 3 Est. Patient 13:52:47 CDT Esvin PAULA [facility] CPT-70956 Level 3 Est. Patient 11:26:46 CDT Esvin PAULA [facility] CPT-25807 Level 3 Est. Patient 10:25:00 STREETCAR DISPATCHER Esvin PAULA [facility] CPT-04541 Level 3 Est. Patient 11:39:11 STREETCAR DISPATCHER Esvin PAULA [facility] CPT-01316 Level 3 Est. Patient 13:24:24 STREETCAR DISPATCHER Esvin PAULA [facility] CPT-12811 Level 3 Est. Patient 10:26:13 STREETCAR DISPATCHER Esvin PAULA [facility] CPT-97132 Level 3 Est. Patient 10:21:21 CDT Esvin PAULA [facility] CPT-96687 Level 3 Est. Patient 10:26:30 CDT Esvin PAULA [facility] CPT-04960 Level 3 Est. Patient 09:16:37 CDT Esvin PAULA [facility]-31241 Level 3 Est. Patient 09:06:58 CDT Esvin PAULA [facility] CPT-06409 Level 3 Est. Patient 10:05:29 CDT Esvin PAULA [facility] CPT-04425 Level 3 Est. Patient 10:38:45 CDT Esvin Hudson [facility] CPT-54220 Level 3 Est. Patient 10:09:45 CDT Esvin Hudson [facility] CPT-33232 Level 3 Est. Patient 09:26:37 CDT Esvin Tristan [facility] CPT-76740 Level 3 Est. Patient 10:34:42 STREETCAR DISPATCHER Esvin Tristan [facility] CPT-62933 Level 3 Est. Patient 10:45:47 STREETCAR DISPATCHER Esvin Hudson [facility] CPT-76473 Level 3 Est. Patient 10:45:22 STREETCAR DISPATCHER Esvin Hudson [facility] CPT-08781 Level 3 Est. Patient 14:18:30 STREETCAR DISPATCHER Esvin Hudson [facility] CPT-91314 Level 3 Est. Patient 13:53:29 STREETCAR DISPATCHER Esvin Gregory [facility] CPT-84699 Level 3 Est. Patient 10:34:11 CDT Esvin Hudson [facility] Procedures Code Procedure Name Date Entry Date Standard Description CPT-21435 Venipuncture Draw Fee 09:26:55 CDT CPT-86091 Venipuncture Draw Fee 11:55:52 CDT CPT-88852 Spec Collection and Handling Fee 09:16:37 CDT CPT-55576 Venipuncture Draw Fee 09:16:37 CDT
--- OUTSIDE RECORDS SUMMARY | 2018-02-26 14:17 | XMS REPORT | Clinical Summary ---
Author Author Admin, E Organization [employer] Address Unknown Phone Unavailable Allergies, Adverse Reactions, [...] Generic Name NDC Status Provider Patient Instruction FLONASE ALLERGY RELIEF 50 MCG/ACT NASAL SUSP 2 sprays each nostril every day FLUTICASONE PROPIONATE 82881120090 Active Wily Gonzalez DO Active CLEMASTINE FUMARATE 1.34 MG ORAL TABS 1 tab PO BID CLEMASTINE FUMARATE 28464566484 No Longer Active Wily Gonzalez DO Active FLOMAX 0.4 MG CAPS 1 capsule in the evening for night time urination. TAMSULOSIN HCL 71119081963 No Longer Active Wily Gonzalez DO Active PROTONIX 40 MG TBEC 1 po daily PANTOPRAZOLE SODIUM 29920747301 Active Wily Gonzalez DO Active HYDROXYZINE HCL 25 MG TAB 1 two times a day as needed for anxiety HYDROXYZINE HCL 37912951800 No Longer Active Wily Gonzalez DO Active ANUSOL-HC 25 MG SUPPOSITORY 1 rectally every 12 hours for irritation HYDROCORTISONE NAEL (RECTAL) 89690297535 No Longer Active Wily Gonzalez DO Active HYDROXYZINE HCL 25 MG TABS Take one (1) tablet by mouth twice a day HYDROXYZINE HCL 38324093332 No Longer Active Wily Gonzalez DO Active ZIAC 2.5-6.25 MG TAB 1 tablet daily for high blood pressure 10/27 BISOPROLOL-HCTZ 88359547877 No Longer Active Wily Gonzalez DO Active [id number] 167-83-8 MG TABS 1 tab po daily CALCIUM -MAGNESIUM-ZINC 35432207370 Active Wily Gonzalez DO Active NYSTATIN 709884 UNIT/GM CREA apply to rash TID PRN NYSTATIN 67274641687 Active Wily Gonzalez DO Active ZIAC 2.5-6.25 MG TAB 1 tablet every morning for high blood pressure BISOPROLOL-HCTZ 86209397439 No Longer Active Wily Gonzalez DO Active AMOXICILLIN 500 MG CAPS Take one (1) tablet by mouth three times a day 05/05 AMOXICILLIN 60072118672 No Longer Active Wily Gonzalez DO Active MORPHINE SULFATE ER 100 MG CR-TABS Take one (1) tablet by mouth twice a day MORPHINE SULFATE 55235338891 No Longer Active Wily Gonzalez DO Active MORPHINE SULFATE ER 100 MG [id number] 1 capsule twice daily for chronic pain MORPHINE SULFATE 42992977304 Active Marylou Melissa RPT,RMA Active CIALIS 10 MG TABS 1 every 72 hours as needed TADALAFIL 57397625278 No Longer Active Esvin PAULA Active FLONASE 50 MCG/ACT SUSP 2 SPRAY EACH NARE DAILY FLUTICASONE PROPIONATE 71711636685 No Longer Active Esvin PAULA Active CYCLOBENZAPRINE HCL 10 MG TABS Take one (1) tablet by mouth three times a day CYCLOBENZAPRINE HCL 07654322591 Active Wily Gonzalez DO Active OPANA ER (CRUSH RESISTANT) 40 MG [id number] Take one (1) tablet by mouth twice a day OXYMORPHONE HCL 20764025619 No Longer Active Esvin PAULA Active POLY-IRON 150 150 MG CAPS 1 tab po bid POLYSACCHARIDE IRON COMPLEX 47672268941 Active Wily Gonzalez DO Active PROAIR HFA 108 (90 BASE) MCG/ACT AERS 2 puffs every four hours as needed ALBUTEROL SULFATE 55794261314 No Longer Active Esvin PAULA Active CLEARLAX POWD 17gm q day prn constipation POLYETHYLENE GLYCOL 3350 79404853048 Active Kaylen Leigh MA Active MORPHINE SULFATE ER 100 MG [id number] Take one (1) tablet by mouth twice a day MORPHINE SULFATE 57351369717 No Longer Active Esvin PAULA Active FLEXERIL 10 MG TAB 1 tablet by mouth 3 times daily as needed CYCLOBENZAPRINE HCL 99299486342 No Longer Active Esvin PAULA Active CELEBREX 200 MG CAPS 1 tablet by mouth twice daily with meals CELECOXIB 37837707742 No Longer Active Esvin PAULA Active NEXIUM 40 MG CPDR 1 cap daily ESOMEPRAZOLE MAGNESIUM 50285718139 No Longer Active Esvin PAULA Active MOBIC 15 MG TABS 1 tab daily MELOXICAM 72747441614 No Longer Active Esvin PAULA Active LISINOPRIL 20 MG TABS Take 1 tablet by mouth daily LISINOPRIL 56218896786 No Longer Active Esvin PAULA Active DICLOFENAC SODIUM 50 MG TBEC 1 tablet by mouth four times daily DICLOFENAC SODIUM 38340137319 No Longer Active Paula Cooney RN Active VERAMYST 27.5 MCG/SPRAY SUSP 2 spray each nare daily FLUTICASONE FUROATE 74769872985 No Longer Active Megan Vargas RN Active ENDOCET 10-325 MG TABS Take one (1) tablet by mouth three times a day OXYCODONE-ACETAMINOPHEN 58482343623 Active Marylou Melissa RPT,RMA Active ALPRAZOLAM 2 MG TABS Take one (1) tablet by mouth three times a day ALPRAZOLAM 37985641597 Active Marylou Melissa RPT,RMA Active NEXIUM 40 MG CPDR 1 cap by mouth daily ESOMEPRAZOLE MAGNESIUM 46644073851 No Longer Active Esvin PAULA Active ALPRAZOLAM 2 MG TABS 1 tablet by mouth three times daily as needed ALPRAZOLAM 07129964236 No Longer Active Esvin PAULA Active HYDROXYZINE HCL 25 MG TAB take 1 every 4-6 hours as needed 07/01 HYDROXYZINE HCL 62437207320 No Longer Active Esvin PAULA Active ENDOCET 10-325 MG TABS 1 by mouth twice a day OXYCODONE-ACETAMINOPHEN 47745846587 No Longer Active Esvin PAULA Active MS CONTIN 100 MG [id number] 1 by mouth twice a day MORPHINE SULFATE 41954794189 No Longer Active Esvin PAULA Active SUDAFED 30 MG TAB 1-2 every 4-6 hours as needed PSEUDOEPHEDRINE HCL 10253377575 Active Marylou Melissa RPT,RMA Active VERAMYST 27.5 MCG/SPRAY SUSP 2 spray each nare daily VERAMYST 27.5 MCG/SPRAY SUSP FLUTICASONE FUROATE Inactive DICLOFENAC SODIUM 50 MG TBEC 1 tablet by mouth four times daily DICLOFENAC SODIUM 50 MG TBEC 919709 DICLOFENAC SODIUM Inactive LISINOPRIL 20 MG TABS Take 1 tablet by mouth daily LISINOPRIL 20 MG TABS 936759 LISINOPRIL Inactive MOBIC 15 MG TABS 1 tab daily MOBIC 15 MG TABS 255754 MELOXICAM Inactive NEXIUM 40 MG CPDR 1 cap daily NEXIUM 40 MG CPDR 680197 ESOMEPRAZOLE MAGNESIUM Inactive CELEBREX 200 MG CAPS 1 tablet by mouth twice daily with meals CELEBREX 200 MG CAPS 399973 CELECOXIB Inactive FLEXERIL 10 MG TAB 1 tablet by mouth 3 times daily as needed FLEXERIL 10 MG TAB CYCLOBENZAPRINE HCL Inactive PROAIR HFA 108 (90 BASE) MCG/ACT AERS 2 puffs every four hours as needed PROAIR HFA 108 (90 BASE) MCG/ACT AERS ALBUTEROL SULFATE Inactive FLONASE 50 MCG/ACT SUSP 2 SPRAY EACH NARE DAILY FLONASE 50 MCG/ACT SUSP 039829 FLUTICASONE PROPIONATE Inactive CIALIS 10 MG TABS 1 every 72 hours as needed CIALIS 10 MG TABS TADALAFIL Inactive MORPHINE SULFATE ER 100 MG CR-TABS Take one (1) tablet by mouth twice a day MORPHINE SULFATE ER 100 MG CR-TABS MORPHINE SULFATE Inactive AMOXICILLIN 500 MG CAPS Take one (1) tablet by mouth three times a day 05/05 AMOXICILLIN 500 MG CAPS 736090 AMOXICILLIN Inactive ZIAC 2.5-6.25 MG TAB 1 tablet every morning for high blood pressure ZIAC 2.5-6.25 MG TAB 649172 BISOPROLOL-HCTZ Inactive ZIAC 2.5-6.25 MG TAB 1 tablet daily for high blood pressure 10/27 ZIAC 2.5-6.25 MG TAB 406699 BISOPROLOL-HCTZ Inactive HYDROXYZINE HCL 25 MG TABS Take one (1) tablet by mouth twice a day HYDROXYZINE HCL 25 MG TABS 325001 HYDROXYZINE HCL Inactive ANUSOL-HC 25 MG SUPPOSITORY 1 rectally every 12 hours for irritation ANUSOL-HC 25 MG SUPPOSITORY 9480422 HYDROCORTISONE NAEL (RECTAL ) Inactive HYDROXYZINE HCL 25 MG TAB 1 two times a day as needed for anxiety HYDROXYZINE HCL 25 MG TAB 333560 HYDROXYZINE HCL Inactive FLOMAX 0.4 MG CAPS 1 capsule in the evening for night time urination. FLOMAX 0.4 MG CAPS 414532 TAMSULOSIN HCL Inactive CLEMASTINE FUMARATE 1.34 MG ORAL TABS 1 tab PO BID CLEMASTINE FUMARATE 1.34 MG ORAL TABS 729332 CLEMASTINE FUMARATE Inactive MS CONTIN 100 MG [id number] 1 by mouth twice a day MS CONTIN 100 MG [id number] MORPHINE SULFATE Inactive ENDOCET 10-325 MG TABS 1 by mouth twice a day ENDOCET 10-325 MG TABS 3733884 OXYCODONE-ACETAMINOPHEN Inactive HYDROXYZINE HCL 25 MG TAB take 1 every 4-6 hours as needed 07/01 HYDROXYZINE HCL 25 MG TAB 643428 HYDROXYZINE HCL Inactive ALPRAZOLAM 2 MG TABS 1 tablet by mouth three times daily as needed ALPRAZOLAM 2 MG TABS 869250 ALPRAZOLAM Inactive NEXIUM 40 MG CPDR 1 cap by mouth daily NEXIUM 40 MG CPDR 244789 ESOMEPRAZOLE MAGNESIUM Inactive Advance Directives Directive Description Start Date PERMISSION TO SHARE Vital Signs Date Name Value Unit Range Description blood pressure, diastolic - 8462-4 83 mm[Hg] [...] E&M - 3141-9 172.5 [lb_av] Weight Measured blood pressure, diastolic - 8462-4 90 mm[Hg] BP stoddard blood pressure, systolic - 8480-6 134 mm[Hg] BP sys pulse rate E&M - 8867-4 105 /min Heart rate temperature E&M 97.9 [degF] Body temperature weight E&M - 3141-9 165 [lb_av] Weight Measured Diagnostic Results Date Name [...] ... - Chemistry sodium, serum 140 mmol/L 331-296 2976/03/25 carbon dioxide, venous blood 31.3 mmol/L 21.0-32.0 potassium, serum 4.0 mmol/L 3.5-5.2 chloride, serum 101 mmol/L 98-107 blood glucose 96 mg/dL 65-110 urea nitrogen, blood 7 mg/dL 7-18 creatinine, serum 0.94 mg/dL 0.55-1.30 alanine aminotransferase (SGPT), serum 23 U/L 12-78 aspartate aminotransferase (SGOT), serum 21 U/L 15-37 calcium, serum 8.9 mg/dL 8.5-10.1 bilirubin, serum, total 0.30 mg/dL 0.00-1.00 cholesterol, serum 169 mg/dL 773-291 3676/03/25 triglyceride, serum, fasting 143 mg/dL 30-200 HDL cholesterol, serum 61 mg/dL 32-96 LDL cholesterol, serum 79 mg/dL 0-130 TSH 1.28 m[iU]/mL 0.36-3.74 Lab Report: MICROALBUMIN - Chemistry albumin/creatinine ratio, urine < 30 mg/g mg/g{creat} 0-29 Lab Report: MICROALBUMIN - Lab microalbumin, urine 10 0-19 Lab Report: UADIP W/MICRO, AUTO - Chemistry [...] 5.0-8.5 Encounters Code Encounter Date Provider Facility CPT-59790 Level 3 Est. Patient 11:24:24 CDT Wily Zhang [facility] CPT-05269 Level 3 Est. Patient 15:19:54 LINUX SEC[employer]ITY ADMINISTRATOR Wily Zhang [facility] CPT-70675 Level 3 Est. Patient 10:04:45 CDT Wily Zhang [facility] CPT-52125 Level 3 Est. Patient 13:04:06 CDT Wily Zhang [facility] CPT-49482 Level 3 Est. Patient 12:23:04 CDT Wily Zhang [facility] CPT-78031 Level 3 Est. Patient 15:43:10 LINUX SECURITY ADMINISTRATOR Wily Gonzalez [facility] CPT-07427 Level 3 Est. Patient 16:10:54 CDT Wily Gonzalez [facility] CPT-95804 Level 3 Est. Patient 19:50:51 CDT Wily Gonzalez [facility] CPT-01640 Level 3 Est. Patient 12:02:30 LINUX SECURITY ADMINISTRATOR Wily Gonzalez [facility] CPT-17813 Level 3 Est. Patient 12:03:11 LINUX SECURITY ADMINISTRATOR Wily Gonzalez [facility] CPT-94018 Level 3 Est. Patient 12:01:41 LINUX SECURITY ADMINISTRATOR Wily Gonzalez [facility] CPT-05078 Level 3 Est. Patient 11:51:24 LINUX SECURITY ADMINISTRATOR Wily Gonzalez [facility] CPT-10312 Level 3 Est. Patient 11:58:20 LINUX SECURITY ADMINISTRATOR Wily Gonzalez [facility] CPT-49481 Level 3 Est. Patient 08:31:36 LINUX SECURITY ADMINISTRATOR Wily Gonzalez [facility] CPT-54059 Level 3 Est. Patient 21:57:36 CDT Wily Gonzalze [facility] CPT-97945 Level 3 Est. Patient 10:49:58 CDT Esvin PAULA [facility] CPT-78602 Level 3 Est. Patient 11:22:[address] [facility] CPT-21990 Level 3 Est. Patient 13:49:41 CDT Esvin PAULA [facility] CPT-09603 Level 3 Est. Patient 11:54:[address] [facility] CPT-40030 Level 3 Est. Patient 09:07:11 CDT Esvin Hudson [facility] CPT-91271 Level 3 Est. Patient 13:52:47 CDT Esvin Hudson [facility] CPT-21296 Level 3 Est. Patient 11:26:46 CDT Esvin Hudson [facility] CPT-97729 Level 3 Est. Patient 10:25:00 LINUX SECURITY ADMINISTRATOR Esvin Hudson [facility] CPT-63606 Level 3 Est. Patient 11:39:11 LINUX SECURITY ADMINISTRATOR Esvin Hudson [facility] CPT-54796 Level 3 Est. Patient 13:24:24 LINUX SECURITY ADMINISTRATOR Esvin Hudson [facility] CPT-27348 Level 3 Est. Patient 10:26:13 LINUX SECURITY ADMINISTRATOR Esvin Hudson [facility] CPT-45785 Level 3 Est. Patient 10:21:21 CDT Esvin Hudson [facility] CPT-91719 Level 3 Est. Patient 10:26:30 CDT Esvin Hudson [facility] CPT-48501 Level 3 Est. Patient 09:16:[address] Hudson [facility] CPT-89724 Level 3 Est. Patient 09:06:58 CDT Esvin Tristan [facility] CPT-29478 Level 3 Est. Patient 10:05:29 CDT Esvin Hudson [facility] CPT-90002 Level 3 Est. Patient 10:38:45 CDT Esvin Hudson [facility] CPT-39377 Level 3 Est. Patient 10:09:45 CDT Esvin Tristan [facility] CPT-76042 Level 3 Est. Patient 09:26:37 CDT Esvin Parker PA [facility] CPT-09887 Level 3 Est. Patient 10:34:42 LINUX SECURITY ADMINISTRATOR Esvin Parker [facility] CPT-03699 Level 3 Est. Patient 10:45:47 LINUX SECURITY ADMINISTRATOR Esvin Hudson [facility] CPT-99241 Level 3 Est. Patient 10:45:22 LINUX SECURITY ADMINISTRATOR Esvin Hudson [facility] CPT-57600 Level 3 Est. Patient 14:18:30 LINUX SECURITY ADMINISTRATOR Esvin [facility] CPT-09334 Level 3 Est. Patient 13:53:29 LINUX SECURITY ADMINISTRATOR Esvin Tristan [facility] CPT-40053 Level 3 Est. Patient 10:34:11 CDT Esvin [facility] Procedures Code Procedure Name Date Entry Date Standard Description CPT-85091 Venipuncture Draw Fee 09:26:55 CDT CPT-20680 Venipuncture Draw Fee 11:55:52 CDT CPT-67387 Spec Collection and Handling Fee 09:16:37 CDT CPT-12631 Venipuncture Draw Fee 09:16:37 CDT
--- OUTSIDE RECORDS SUMMARY | 2018-02-26 14:18 | XMS REPORT | Clinical Summary ---
Author Author Admin, E Organization [facility] Address Unknown Phone Unavailable Allergies, Adverse Reactions, [...] specified U R I 465.9 Inactive Wily Vicente Gonzalez DO Acute upper respiratory infections of unspecified site Health screening V70.0 Active Wily Zhang Carlos DO Routine general medical examination at a health care facility Tobacco abuse 305.1 Active Wily Vicente Gonzalez DO Tobacco use disorder Wellness exam V70.0 Active Wily Gonzalez DO Routine general medical examination at a health care facility Elevated blood pressure without diagnosis of hypertension 796.2 Active Wily Gonzalez DO Elevated blood pressure reading without diagnosis of hypertension Compression fracture, spine 805.8 Active Tiffanie Bravo LRT Closed fracture of unspecified part of vertebral column without mention of spinal cord injury Cigarette smoker 305.1 Active Tiffanie Bravo LRT Tobacco use disorder Osteoporosis 733.00 Active Rose Bang Osteoporosis, unspecified 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 Active Marylou Melissa Scribmartha Adjustment disorder with depressed mood HYPERTENSION ICD-401.9 Inactive Wily Vicente Gonzalez DO ANKLE PAIN ICD-719.47 Inactive Wily Zhang Carlos DO 05/08 FH DIABETES ICD-V18.0 Inactive Wily Vicente Gonzalez DO ANEMIA ICD-285.9 Inactive Wily Zhang Carlos DO Tinea corporis ICD-110.5 Inactive Wily Vicente Carlos DO Tinea corporis ICD-110.5 Inactive Wily Vicente Gonzalez DO Hemorrhoids ICD-455.6 Inactive Wily Zhang Carlos DO 05/08 Nocturia ICD-788.43 Inactive Wily Gonzalez DO U T I ICD-599.0 Inactive Wily Zhang Carlos DO U R I ICD-465.9 Inactive Wily Gonzalez DO Medication List Medication Instructions Start Date Stop Date Generic Name NDC Status Provider Patient Instruction CHANTIX 1 MG TABS 1 twice a day VARENICLINE TARTRATE 39055836818 No Longer Active Wily Gonzalez DO Active RAUL-MAG 500-250 MG ORAL TABS Take one by mouth daily CALCIUM- MAGNESIUM 65689146364 Active Wily Gonzalez DO Active FOSAMAX 70 MG TABS 1 po qweek. Take 30min prior to first food/drink. Avoid lying down x 1 hour. ALENDRONATE SODIUM 27163910808 Active Rose Bang Active CALCIUM 600 MG ORAL TABS 1 po q day CALCIUM 54607478891 Active Rose Bang Active TRIAMCINOLONE ACETONIDE 0.1 % CREA Apply to affected area 3 times daily for up to 2 weeks TRIAMCINOLONE ACETONIDE 13676246688 Active Wily Gonzalez DO Active [id number]-KWPN 167-83-8 MG TABS 1 tab po daily [id number]-[id number] 83179991597 No Longer Active Wily Gonzalez DO Active NYSTATIN 294398 UNIT/GM CREA apply to rash TID PRN NYSTATIN 45056489460 No Longer Active Wily Gonzalez DO Active POLY-IRON 150 150 MG CAPS 1 tab po bid POLYSACCHARIDE IRON COMPLEX 76526812277 No Longer Active Wily Gonzalez DO Active FLONASE ALLERGY RELIEF 50 MCG/ACT NASAL SUSP 2 sprays each nostril every day FLUTICASONE PROPIONATE 89891125431 Active Rose Bang Active CLEMASTINE FUMARATE 1.34 MG ORAL TABS 1 tab PO BID CLEMASTINE FUMARATE 06886442222 No Longer Active Wily Gonzalez DO Active FLOMAX 0.4 MG CAPS 1 capsule in the evening for night time urination. TAMSULOSIN HCL 68117708968 No Longer Active Wily Gonzalez DO Active PROTONIX 40 MG TBEC 1 po daily PANTOPRAZOLE SODIUM 49947825133 Active Lisa Berkowitz Active HYDROXYZINE HCL 25 MG TAB 1 two times a day as needed for anxiety HYDROXYZINE HCL 81245988996 No Longer Active Wily Gonzalez DO Active ANUSOL-HC 25 MG SUPPOSITORY 1 rectally every 12 hours for irritation HYDROCORTISONE NAEL (RECTAL) 02388724959 No Longer Active Wily Gonzalez DO Active HYDROXYZINE HCL 25 MG TABS Take one (1) tablet by mouth twice a day HYDROXYZINE HCL 25677421208 No Longer Active Wily Gonzalez DO Active ZIAC 2.5-6.25 MG TAB 1 tablet daily for high blood pressure 10/27 BISOPROLOL-HCTZ 29094984466 No Longer Active Wily Gonzalez DO Active ZIAC 2.5-6.25 MG TAB 1 tablet every morning for high blood pressure BISOPROLOL-HCTZ 91905422685 No Longer Active Wily Gonzalez DO Active AMOXICILLIN 500 MG CAPS Take one (1) tablet by mouth three times a day 05/05 AMOXICILLIN 19095441264 No Longer Active Wily Gonzalez DO Active MORPHINE SULFATE ER 100 MG CR-TABS Take one (1) tablet by mouth twice a day MORPHINE SULFATE 15464850628 No Longer Active Wily Gonzalez DO Active MORPHINE SULFATE ER 100 MG SM49M-[id number] 1 capsule twice daily for chronic pain MORPHINE SULFATE 41756935071 Active Wily Gonzalez DO Active CIALIS 10 MG TABS 1 every 72 hours as needed TADALAFIL 65883841314 No Longer Active Esvin PAULA Active FLONASE 50 MCG/ACT SUSP 2 SPRAY EACH NARE DAILY FLUTICASONE PROPIONATE 64119162638 No Longer Active Esvin PAULA Active CYCLOBENZAPRINE HCL 10 MG TABS Take one (1) tablet by mouth three times a day CYCLOBENZAPRINE HCL 24153335194 Active Lisa Berkowitz Active OPANA ER (CRUSH RESISTANT) 40 MG [id number] Take one (1) tablet by mouth twice a day OXYMORPHONE HCL 96805445227 No Longer Active Esvin PAULA Active PROAIR HFA 108 (90 BASE) MCG/ACT AERS 2 puffs every four hours as needed ALBUTEROL SULFATE 11308246689 No Longer Active Esvin PAULA Active CLEARLAX POWD 17gm q day prn constipation POLYETHYLENE GLYCOL 3350 01774228852 Active Wily Gonzalez DO Active MORPHINE SULFATE ER 100 MG [id number] Take one (1) tablet by mouth twice a day MORPHINE SULFATE 99119332585 No Longer Active Esvin PAULA Active FLEXERIL 10 MG TAB 1 tablet by mouth 3 times daily as needed CYCLOBENZAPRINE HCL 01566645222 No Longer Active Esvin PAULA Active CELEBREX 200 MG CAPS 1 tablet by mouth twice daily with meals CELECOXIB 49826193731 No Longer Active Esvin PAULA Active NEXIUM 40 MG CPDR 1 cap daily ESOMEPRAZOLE MAGNESIUM 81833656670 No Longer Active Esvin PAULA Active MOBIC 15 MG TABS 1 tab daily MELOXICAM 17800317250 No Longer Active Esvin PAULA Active LISINOPRIL 20 MG TABS Take 1 tablet by mouth daily LISINOPRIL 57465239718 No Longer Active Esvin PAULA Active DICLOFENAC SODIUM 50 MG TBEC 1 tablet by mouth four times daily DICLOFENAC SODIUM 39911743033 No Longer Active Paula Cooney RN Active VERAMYST 27.5 MCG/SPRAY SUSP 2 spray each nare daily FLUTICASONE FUROATE 59327801315 No Longer Active Megan Vargas RN Active ENDOCET 10-325 MG TABS Take one (1) tablet by mouth three times a day OXYCODONE-ACETAMINOPHEN 70444531346 Active Wily Gonzalez DO Active ALPRAZOLAM 2 MG TABS Take one (1) tablet by mouth three times a day ALPRAZOLAM 46915049031 Active Rose Bang Active NEXIUM 40 MG CPDR 1 cap by mouth daily ESOMEPRAZOLE MAGNESIUM 64640332553 No Longer Active Esvin PAULA Active ALPRAZOLAM 2 MG TABS 1 tablet by mouth three times daily as needed ALPRAZOLAM 43407400006 No Longer Active Esvin PAULA Active HYDROXYZINE HCL 25 MG TAB take 1 every 4-6 hours as needed 07/01 HYDROXYZINE HCL 72265562668 No Longer Active Esvin PAULA Active ENDOCET 10-325 MG TABS 1 by mouth twice a day OXYCODONE-ACETAMINOPHEN 92962276203 No Longer Active Esvin PAULA Active MS CONTIN 100 MG [id number] 1 by mouth twice a day MORPHINE SULFATE 88196914309 No Longer Active Esvin PAULA Active SUDAFED 30 MG TAB 1-2 every 4-6 hours as needed PSEUDOEPHEDRINE HCL 81573682616 Active Lisa Berkowitz Active VERAMYST 27.5 MCG/SPRAY SUSP 2 spray each nare daily VERAMYST 27.5 MCG/SPRAY SUSP FLUTICASONE FUROATE Inactive DICLOFENAC SODIUM 50 MG TBEC 1 tablet by mouth four times daily DICLOFENAC SODIUM 50 MG TBEC 704341 DICLOFENAC SODIUM Inactive LISINOPRIL 20 MG TABS Take 1 tablet by mouth daily LISINOPRIL 20 MG TABS 673905 LISINOPRIL Inactive MOBIC 15 MG TABS 1 tab daily MOBIC 15 MG TABS 400045 MELOXICAM Inactive NEXIUM 40 MG CPDR 1 cap daily NEXIUM 40 MG CPDR 639991 ESOMEPRAZOLE MAGNESIUM Inactive CELEBREX 200 MG CAPS 1 tablet by mouth twice daily with meals CELEBREX 200 MG CAPS 496297 CELECOXIB Inactive FLEXERIL 10 MG TAB 1 tablet by mouth 3 times daily as needed FLEXERIL 10 MG TAB CYCLOBENZAPRINE HCL Inactive PROAIR HFA 108 (90 BASE) MCG/ACT AERS 2 puffs every four hours as needed PROAIR HFA 108 (90 BASE) MCG/ACT AERS ALBUTEROL SULFATE Inactive FLONASE 50 MCG/ACT SUSP 2 SPRAY EACH NARE DAILY FLONASE 50 MCG/ACT SUSP 4201870 FLUTICASONE PROPIONATE Inactive CIALIS 10 MG TABS 1 every 72 hours as needed CIALIS 10 MG TABS TADALAFIL Inactive MORPHINE SULFATE ER 100 MG CR-TABS Take one (1) tablet by mouth twice a day MORPHINE SULFATE ER 100 MG CR-TABS MORPHINE SULFATE Inactive AMOXICILLIN 500 MG CAPS Take one (1) tablet by mouth three times a day 05/05 AMOXICILLIN 500 MG CAPS 285809 AMOXICILLIN Inactive ZIAC 2.5-6.25 MG TAB 1 tablet every morning for high blood pressure ZIAC 2.5-6.25 MG TAB 953677 BISOPROLOL-HCTZ Inactive ZIAC 2.5-6.25 MG TAB 1 tablet daily for high blood pressure 10/27 ZIAC 2.5-6.25 MG TAB 545410 BISOPROLOL-HCTZ Inactive HYDROXYZINE HCL 25 MG TABS Take one (1) tablet by mouth twice a day HYDROXYZINE HCL 25 MG TABS 856137 HYDROXYZINE HCL Inactive ANUSOL-HC 25 MG SUPPOSITORY 1 rectally every 12 hours for irritation ANUSOL-HC 25 MG SUPPOSITORY 5761327 HYDROCORTISONE NAEL (RECTAL ) Inactive HYDROXYZINE HCL 25 MG TAB 1 two times a day as needed for anxiety HYDROXYZINE HCL 25 MG TAB 155837 HYDROXYZINE HCL Inactive FLOMAX 0.4 MG CAPS 1 capsule in the evening for night time urination. FLOMAX 0.4 MG CAPS 024813 TAMSULOSIN HCL Inactive CLEMASTINE FUMARATE 1.34 MG ORAL TABS 1 tab PO BID CLEMASTINE FUMARATE 1.34 MG ORAL TABS 738208 CLEMASTINE FUMARATE Inactive POLY-IRON 150 150 MG CAPS 1 tab po bid POLY-IRON 150 150 MG CAPS 392559 POLYSACCHARIDE IRON COMPLEX Inactive NYSTATIN 698907 UNIT/GM CREA apply to rash TID PRN NYSTATIN 592380 UNIT/GM CREA 488116 NYSTATIN Inactive IBEGFOC-HIFVFFPVU-MUDU 167-83-8 MG TABS 1 tab po daily [id number] 167-83-8 MG TABS 40926068285 CALCIUM-MAGNESIUM- ZINC Inactive CHANTIX 1 MG TABS 1 twice a day CHANTIX 1 MG TABS VARENICLINE TARTRATE Inactive MS CONTIN 100 MG [id number] 1 by mouth twice a day MS CONTIN 100 MG ED83P-DRA MORPHINE SULFATE Inactive ENDOCET 10-325 MG TABS 1 by mouth twice a day ENDOCET 10-325 MG TABS 0728383 OXYCODONE-ACETAMINOPHEN Inactive HYDROXYZINE HCL 25 MG TAB take 1 every 4-6 hours as needed 07/01 HYDROXYZINE HCL 25 MG TAB 947748 HYDROXYZINE HCL Inactive ALPRAZOLAM 2 MG TABS 1 tablet by mouth three times daily as needed ALPRAZOLAM 2 MG TABS 452184 ALPRAZOLAM Inactive NEXIUM 40 MG CPDR 1 cap by mouth daily NEXIUM 40 MG CPDR 293756 ESOMEPRAZOLE MAGNESIUM Inactive Advance Directives Directive Description Start Date PERMISSION TO SHARE Vital Signs Date Name Value Unit Range Description blood pressure, diastolic 84 mm[Hg] BP stoddard blood pressure, systolic 131 mm[Hg] BP sys height E&M 68 [in_us] Bdy height pulse rate E&M 102 /min Heart rate temperature E&M 98.6 [degF] Body temperature weight E&M 162.31 [lb_av] Weight Measured blood pressure, diastolic 98 mm[Hg] BP stoddard blood pressure, systolic 152 mm[Hg] BP sys height E&M 68 [in_us] Bdy height pulse rate E&M 90 /min Heart rate temperature E&M 96.6 [degF] Body temperature weight E&M 166.38 [lb_av] Weight Measured blood pressure, diastolic 76 mm[Hg] BP stoddard blood pressure, systolic 128 mm[Hg] BP sys height E&M 68 [in_us] Bdy height pulse rate E&M 105 /min Heart rate temperature E&M 97.9 [degF] Body temperature weight E&M 183 [lb_av] Weight Measured blood pressure, diastolic 97 mm[Hg] BP stoddard blood pressure, systolic 138 mm[Hg] BP sys pulse rate E&M 117 /min Heart rate temperature E&M 98.5 [degF] Body temperature weight E&M 181.5 [lb_av] Weight Measured Encounters Code Encounter Date Provider Facility CPT-20096 Level 4 Est. Patient 12:51:46 CDT Wily Gonzalez [facility] CPT-92894 Level 4 Est. Patient 10:10:03 CDT Wily Gonzalez [facility] CPT-42953 Level 3 Est. Patient 14:25:57 CDT Wily Gonzalez [facility] CPT-95097 Level 3 Est. Patient 09:51:37 FIELD PIPELINES SUPERVISOR Wily Gonzalez [facility] CPT-24887 Level 3 Est. Patient 11:07:48 CDT Wily Gonzalez [facility] CPT-50647 Level 3 Est. Patient 11:24:24 CDT Wily Gonzalez [facility] CPT-05160 Level 3 Est. Patient 15:19:54 FIELD PIPELINES SUPERVISOR Wily Gonzalez [facility] CPT-20511 Level 3 Est. Patient 10:04:45 CDT Wily W Carlos [facility] CPT-53101 Level 3 Est. Patient 13:04:06 CDT Wily Gonzalez [facility] CPT-12887 Level 3 Est. Patient 12:23:04 CDT Wily Gonzalez [facility] CPT-70007 Level 3 Est. Patient 15:43:10 FIELD PIPELINES SUPERVISOR Wily Gonzalez [facility] CPT-51251 Level 3 Est. Patient 16:10:54 CDT Wily Gonzalez [facility] CPT-19159 Level 3 Est. Patient 19:50:51 CDT Wily Gonzalez [facility] CPT-40096 Level 3 Est. Patient 12:02:30 FIELD PIPELINES SUPERVISOR Wily Gonzalez [facility] CPT-85637 Level 3 Est. Patient 12:03:11 FIELD PIPELINES SUPERVISOR Wily Gonzalez [facility] CPT-03386 Level 3 Est. Patient 12:01:41 FIELD PIPELINES SUPERVISOR Wily Gonzalez [facility] CPT-08705 Level 3 Est. Patient 11:51:24 FIELD PIPELINES SUPERVISOR Wily Gonzalez [facility] CPT-17212 Level 3 Est. Patient 11:58:20 FIELD PIPELINES SUPERVISOR Wily Gonzalez [facility] CPT-25711 Level 3 Est. Patient 08:31:36 FIELD PIPELINES SUPERVISOR Wily Gonzalez [facility] CPT-89458 Level 3 Est. Patient 21:57:36 CDT Wily Gonzalez [facility] CPT-00140 Level 3 Est. Patient 10:49:58 CDT Esvin PAULA [facility] CPT-97948 Level 3 Est. Patient 11:22:52 CDT Esvin PAULA [facility] CPT-25023 Level 3 Est. Patient 13:49:41 CDT Esvin PAULA [facility] CPT-70766 Level 3 Est. Patient 11:54:53 CDT Esvin Hudson [facility] CPT-32431 Level 3 Est. Patient 09:07:11 CDT Esvin Hudson [facility] CPT-26280 Level 3 Est. Patient 13:52:47 CDT Esvin Hudson [facility] CPT-18169 Level 3 Est. Patient 11:26:46 CDT Esvin Hudson [facility] CPT-11826 Level 3 Est. Patient 10:25:00 FIELD PIPELINES SUPERVISOR Esvin Hudson [facility] CPT-20307 Level 3 Est. Patient 11:39:11 FIELD PIPELINES SUPERVISOR Esvin Hudson [facility] CPT-73921 Level 3 Est. Patient 13:24:24 FIELD PIPELINES SUPERVISOR Esvin Hudson [facility] CPT-95037 Level 3 Est. Patient 10:26:13 FIELD PIPELINES SUPERVISOR Esvin Hudson [facility] CPT-11196 Level 3 Est. Patient 10:21:21 CDT Esvin Hudson [facility] CPT-56453 Level 3 Est. Patient 10:26:30 CDT Esvin Hudson [facility] CPT-42569 Level 3 Est. Patient 09:16:37 CDT Esvin Hudson [facility]-75760 Level 3 Est. Patient 09:06:58 CDT Esvin Hudson [facility] CPT-22161 Level 3 Est. Patient 10:05:29 CDT Esvin Tristan [facility] CPT-38642 Level 3 Est. Patient 10:38:45 CDT Esvin Tristan PA [facility] CPT-45672 Level 3 Est. Patient 10:09:45 CDT Esvin Hudson [facility] CPT-96279 Level 3 Est. Patient 09:26:37 CDT Esvin PAULA [facility] CPT-03313 Level 3 Est. Patient 10:34:42 FIELD PIPELINES SUPERVISOR Esvin Hudson [facility] CPT-64875 Level 3 Est. Patient 10:45:47 FIELD PIPELINES SUPERVISOR Esvin Hudson [facility] CPT-13414 Level 3 Est. Patient 10:45:22 FIELD PIPELINES SUPERVISOR Esvin Hudson [facility] CPT-55201 Level 3 Est. Patient 14:18:30 FIELD PIPELINES SUPERVISOR Esvin Hudson [facility] CPT-06380 Level 3 Est. Patient 13:53:29 FIELD PIPELINES SUPERVISOR Esvin Tristan [facility] CPT-05935 Level 3 Est. Patient 10:34:11 CDT Esvin Hudson [facility] Procedures Code Procedure Name Date Entry Date Standard Description CPT-65550 Smoking Cessation counseling 10:10:03 CDT CPT-17986 Smoking Cessation counseling 14:25:57 CDT CPT-82848 Bone Density - XRAY USE ONLY 11:29:32 CDT CPT-40563 LS spine AP and Lat - XRAY USE ONLY 10:07:43 FIELD PIPELINES SUPERVISOR 10/26 CPT-72982 Venipuncture Draw Fee 09:51:16 FIELD PIPELINES SUPERVISOR CPT-16420 Smoking Cessation counseling 09:39:47 FIELD PIPELINES SUPERVISOR CPT-G0438 Initial Annual Wellness Exam 09:37:28 FIELD PIPELINES SUPERVISOR CPT-18578 Venipuncture Draw Fee 09:26:55 CDT CPT-98037 Venipuncture Draw Fee 11:55:52 CDT CPT-66502 Spec Collection and Handling Fee 09:16:37 CDT CPT-20807 Venipuncture Draw Fee 09:16:37 CDT
--- OUTSIDE RECORDS SUMMARY | 2018-02-26 14:18 | XMS REPORT | Clinical Summary ---
Author Author Admin, [place] Organization [facility] Address Unknown Phone Unavailable Allergies, Adverse [...] sprays each nostril every day FLUTICASONE PROPIONATE 84728181987 Active Wily Gonzalez DO Active CLEMASTINE FUMARATE 1.34 MG ORAL TABS 1 tab PO BID CLEMASTINE FUMARATE 28350338776 No Longer Active Wily Gonzalez DO Active FLOMAX 0.4 MG CAPS 1 capsule in the evening for night time urination. TAMSULOSIN HCL 62930223159 No Longer Active Wily Gonzalez DO Active PROTONIX 40 MG TBEC 1 po daily PANTOPRAZOLE SODIUM 10813178649 Active Wily Gonzalez DO Active HYDROXYZINE HCL 25 MG TAB 1 two times a day as needed for anxiety HYDROXYZINE HCL 09998307490 No Longer Active Wily Gonzalez DO Active ANUSOL-HC 25 MG SUPPOSITORY 1 rectally every 12 hours for irritation HYDROCORTISONE NAEL (RECTAL) 49548039207 No Longer Active Wily Gonzalez DO Active HYDROXYZINE HCL 25 MG TABS Take one (1) tablet by mouth twice a day HYDROXYZINE HCL 59313511807 No Longer Active Wily Gonzalez DO Active ZIAC 2.5-6.25 MG TAB 1 tablet daily for high blood pressure 10/27 BISOPROLOL-HCTZ 90259839737 No Longer Active Wily Gonzalez DO Active [id number]-NZAS 167-83-8 MG TABS 1 tab po daily CALCIUM -MAGNESIUM-ZINC 13320060806 Active Wily Gonzalez DO Active NYSTATIN 747372 UNIT/GM CREA apply to rash TID PRN NYSTATIN 75053856669 Active Wily Gonzalez DO Active ZIAC 2.5-6.25 MG TAB 1 tablet every morning for high blood pressure BISOPROLOL-HCTZ 36801345384 No Longer Active Wily Gonzalez DO Active AMOXICILLIN 500 MG CAPS Take one (1) tablet by mouth three times a day 05/05 AMOXICILLIN 21590357405 No Longer Active Wily Gonzalez DO Active MORPHINE SULFATE ER 100 MG CR-TABS Take one (1) tablet by mouth twice a day MORPHINE SULFATE 67690728319 No Longer Active Wily Gonzalez DO Active MORPHINE SULFATE ER 100 MG CM48O-ECF 1 capsule twice daily for chronic pain MORPHINE SULFATE 22202187876 Active Marylou Melissa RPT,RMA Active CIALIS 10 MG TABS 1 every 72 hours as needed TADALAFIL 31729990195 No Longer Active Esvin PAULA Active FLONASE 50 MCG/ACT SUSP 2 SPRAY EACH NARE DAILY FLUTICASONE PROPIONATE 10613318489 No Longer Active Esvin PAULA Active CYCLOBENZAPRINE HCL 10 MG TABS Take one (1) tablet by mouth three times a day CYCLOBENZAPRINE HCL 95543216956 Active Wily Gonzalez DO Active OPANA ER (CRUSH RESISTANT) 40 MG HA38L-CUV Take one (1) tablet by mouth twice a day OXYMORPHONE HCL 29200169809 No Longer Active Esvin PAULA Active POLY-IRON 150 150 MG CAPS 1 tab po bid POLYSACCHARIDE IRON COMPLEX 16504859223 Active Wily Gonzalez DO Active PROAIR HFA 108 (90 BASE) MCG/ACT AERS 2 puffs every four hours as needed ALBUTEROL SULFATE 66894683726 No Longer Active Esvin PAULA Active CLEARLAX POWD 17gm q day prn constipation POLYETHYLENE GLYCOL 3350 61102561647 Active Kaylen Leigh MA Active MORPHINE SULFATE ER 100 MG OH19N-EPH Take one (1) tablet by mouth twice a day MORPHINE SULFATE 17547302505 No Longer Active Esvin PAULA Active FLEXERIL 10 MG TAB 1 tablet by mouth 3 times daily as needed CYCLOBENZAPRINE HCL 86822874373 No Longer Active Esvin PAULA Active CELEBREX 200 MG CAPS 1 tablet by mouth twice daily with meals CELECOXIB 45312789239 No Longer Active Esvin PAULA Active NEXIUM 40 MG CPDR 1 cap daily ESOMEPRAZOLE MAGNESIUM 11631855083 No Longer Active Esvin PAULA Active MOBIC 15 MG TABS 1 tab daily MELOXICAM 96868414704 No Longer Active Esvin PAULA Active LISINOPRIL 20 MG TABS Take 1 tablet by mouth daily LISINOPRIL 33684107657 No Longer Active Esvin PAULA Active DICLOFENAC SODIUM 50 MG TBEC 1 tablet by mouth four times daily DICLOFENAC SODIUM 03586268021 No Longer Active Paula Cooney RN Active VERAMYST 27.5 MCG/SPRAY SUSP 2 spray each nare daily FLUTICASONE FUROATE 37792488184 No Longer Active Megan Vargas RN Active ENDOCET 10-325 MG TABS Take one (1) tablet by mouth three times a day OXYCODONE-ACETAMINOPHEN 79185211967 Active Marylou Melissa RPT,RMA Active ALPRAZOLAM 2 MG TABS Take one (1) tablet by mouth three times a day ALPRAZOLAM 08952758472 Active Kaylen Leigh MA Active NEXIUM 40 MG CPDR 1 cap by mouth daily ESOMEPRAZOLE MAGNESIUM 14100902368 No Longer Active Esvin PAULA Active ALPRAZOLAM 2 MG TABS 1 tablet by mouth three times daily as needed ALPRAZOLAM 36643784494 No Longer Active Esvin PAULA Active HYDROXYZINE HCL 25 MG TAB take 1 every 4-6 hours as needed 07/01 HYDROXYZINE HCL 87353689082 No Longer Active Esvin PAULA Active ENDOCET 10-325 MG TABS 1 by mouth twice a day OXYCODONE-ACETAMINOPHEN 61744915960 No Longer Active Esvin PAULA Active MS CONTIN 100 MG [id number]-BKF 1 by mouth twice a day MORPHINE SULFATE 38828154950 No Longer Active Esvin PAULA Active SUDAFED 30 MG TAB 1-2 every 4-6 hours as needed PSEUDOEPHEDRINE HCL 25354203786 Active Marylou Melissa RPT,RMA Active VERAMYST 27.5 MCG/SPRAY SUSP 2 spray each nare daily VERAMYST 27.5 MCG/SPRAY SUSP FLUTICASONE FUROATE Inactive DICLOFENAC SODIUM 50 MG TBEC 1 tablet by mouth four times daily DICLOFENAC SODIUM 50 MG TBEC 679412 DICLOFENAC SODIUM Inactive LISINOPRIL 20 MG TABS Take 1 tablet by mouth daily LISINOPRIL 20 MG TABS 695715 LISINOPRIL Inactive MOBIC 15 MG TABS 1 tab daily MOBIC 15 MG TABS 678832 MELOXICAM Inactive NEXIUM 40 MG CPDR 1 cap daily NEXIUM 40 MG CPDR 528516 ESOMEPRAZOLE MAGNESIUM Inactive CELEBREX 200 MG CAPS 1 tablet by mouth twice daily with meals CELEBREX 200 MG CAPS 332350 CELECOXIB Inactive FLEXERIL 10 MG TAB 1 [...] a day 05/05 AMOXICILLIN 500 MG CAPS 805133 AMOXICILLIN Inactive ZIAC 2.5-6.25 MG TAB 1 tablet every morning for high blood pressure ZIAC 2.5-6.25 MG TAB 730734 BISOPROLOL-HCTZ Inactive ZIAC 2.5-6.25 MG TAB 1 tablet daily for high blood pressure 10/27 ZIAC 2.5-6.25 MG TAB 012262 BISOPROLOL-HCTZ Inactive HYDROXYZINE HCL 25 MG TABS Take one (1) tablet by mouth twice a day HYDROXYZINE HCL 25 MG TABS 965779 HYDROXYZINE HCL Inactive ANUSOL-HC 25 MG SUPPOSITORY 1 rectally every 12 hours for irritation ANUSOL-HC 25 MG SUPPOSITORY 6241396 HYDROCORTISONE NAEL (RECTAL ) Inactive HYDROXYZINE HCL 25 MG TAB 1 two times a day as needed for anxiety HYDROXYZINE HCL 25 MG TAB 416213 HYDROXYZINE HCL Inactive FLOMAX 0.4 MG CAPS 1 capsule in the evening for night time urination. FLOMAX 0.4 MG CAPS 486542 TAMSULOSIN HCL Inactive CLEMASTINE FUMARATE 1.34 MG ORAL TABS 1 tab PO BID CLEMASTINE FUMARATE 1.34 MG ORAL TABS 866343 CLEMASTINE FUMARATE Inactive MS CONTIN 100 MG [id number]-SVB 1 by mouth twice a day MS CONTIN 100 MG [id number]-RZK MORPHINE SULFATE Inactive ENDOCET 10-325 MG TABS 1 by mouth twice a day ENDOCET 10-325 MG TABS 4388634 OXYCODONE-ACETAMINOPHEN Inactive HYDROXYZINE HCL 25 MG TAB take 1 every 4-6 hours as needed 07/01 HYDROXYZINE HCL 25 MG TAB 655932 HYDROXYZINE HCL Inactive ALPRAZOLAM 2 MG TABS 1 tablet by mouth three times daily as needed ALPRAZOLAM 2 MG TABS 386428 ALPRAZOLAM Inactive NEXIUM 40 MG CPDR 1 cap by mouth daily NEXIUM 40 MG CPDR 320064 ESOMEPRAZOLE MAGNESIUM Inactive Advance Directives Directive Description [...] ... - Chemistry sodium, serum 140 mmol/L 006-815 8985/03/25 carbon dioxide, venous blood 31.3 mmol/L 21.0-32.0 potassium, serum 4.0 mmol/L 3.5-5.2 chloride, serum 101 mmol/L 98-107 blood glucose 96 mg/dL 65-110 urea nitrogen, blood 7 mg/dL 7-18 creatinine, serum 0.94 mg/dL 0.55-1.30 alanine aminotransferase (SGPT), serum 23 U/L 12-78 aspartate aminotransferase (SGOT), serum 21 U/L 15-37 calcium, serum 8.9 mg/dL 8.5-10.1 bilirubin, serum, total 0.30 mg/dL 0.00-1.00 cholesterol, serum 169 mg/dL 919-400 4793/03/25 triglyceride, serum, fasting 143 mg/dL 30-200 HDL [...] 5.0-8.5 Encounters Code Encounter Date Provider Facility CPT-47190 Level 3 Est. Patient 11:24:24 CDT Wily Zhang [facility] CPT-22653 Level 3 Est. Patient 15:19:54 OIL FIELD WORKER Wily Zhang [facility] CPT-50912 Level 3 Est. Patient 10:04:45 CDT Wily Zhang [facility] CPT-98301 Level 3 Est. Patient 13:04:06 CDT Wily Zhang [facility] CPT-81446 Level 3 Est. Patient 12:23:04 CDT Wily Zahng [facility] CPT-07172 Level 3 Est. Patient 15:43:10 OIL FIELD WORKER Wily Gonzalez [facility] CPT-98221 Level 3 Est. Patient 16:10:54 CDT Wily Gonzalez [facility] CPT-46913 Level 3 Est. Patient 19:50:51 CDT Wily Gonzalez [facility] CPT-10616 Level 3 Est. Patient 12:02:30 OIL FIELD WORKER Wily Gonzalez [facility] CPT-44408 Level 3 Est. Patient 12:03:11 OIL FIELD WORKER Wily Gonzalez [facility] CPT-41024 Level 3 Est. Patient 12:01:41 OIL FIELD WORKER Wily Gonzalez [facility] CPT-85775 Level 3 Est. Patient 11:51:24 OIL FIELD WORKER Wily Gonzalez [facility] CPT-02721 Level 3 Est. Patient 11:58:20 OIL FIELD WORKER Wily Gonzalez [facility] CPT-43950 Level 3 Est. Patient 08:31:36 OIL FIELD WORKER Wily Gonzalez [facility] CPT-49339 Level 3 Est. Patient 21:57:36 CDT Wily Gonzalez [facility] CPT-71138 Level 3 Est. Patient 10:49:58 CDT Esvin PAULA [facility] CPT-89144 Level 3 Est. Patient 11:22:52 CDT Esvin Hudson [facility] CPT-33028 Level 3 Est. Patient 13:49:41 CDT Esvin PAULA [facility] CPT-94898 Level 3 Est. Patient 11:54:53 CDT Esvin PAULA [facility] CPT-21286 Level 3 Est. Patient 09:07:11 CDT Esvin Hudson [facility] CPT-24644 Level 3 Est. Patient 13:52:47 CDT Esvin PAULA [facility] CPT-17060 Level 3 Est. Patient 11:26:46 CDT Esvin Hudson [facility] CPT-41482 Level 3 Est. Patient 10:25:00 OIL FIELD WORKER Esvin PAULA [facility] CPT-43534 Level 3 Est. Patient 11:39:11 OIL FIELD WORKER Esvin Hudson [facility] CPT-29426 Level 3 Est. Patient 13:24:24 OIL FIELD WORKER Esvin PAULA [facility] CPT-27134 Level 3 Est. Patient 10:26:13 OIL FIELD WORKER Esvin Hudson [facility] CPT-50968 Level 3 Est. Patient 10:21:21 CDT Esvin Hudson [facility] CPT-83146 Level 3 Est. Patient 10:26:30 CDT Esvin Hudson [facility] CPT-03606 Level 3 Est. Patient 09:16:37 CDT Esvin Hudson [facility] CPT-41190 Level 3 Est. Patient 09:06:58 CDT Esvin Hudson [facility] CPT-35257 Level 3 Est. Patient 10:05:29 CDT Esvin Hudson [facility] CPT-53667 Level 3 Est. Patient 10:38:45 CDT Esvin Hudson [facility] CPT-20629 Level 3 Est. Patient 10:09:45 CDT Esvin Hudson [facility] CPT-67019 Level 3 Est. Patient 09:26:37 CDT Esvin Tristan [facility] CPT-28998 Level 3 Est. Patient 10:34:42 OIL FIELD WORKER Esvin Tristan [facility] CPT-81480 Level 3 Est. Patient 10:45:47 OIL FIELD WORKER Esvin Hudson [facility] CPT-22904 Level 3 Est. Patient 10:45:22 OIL FIELD WORKER Esvin Hudson [facility] CPT-42219 Level 3 Est. Patient 14:18:30 OIL FIELD WORKER Esvin [facility] CPT-75137 Level 3 Est. Patient 13:53:29 OIL FIELD WORKER Esvin Tristan [facility] CPT-82987 Level 3 Est. Patient 10:34:11 CDT Esvin [facility] Procedures Code Procedure Name Date Entry Date Standard Description CPT-19244 Venipuncture Draw Fee 09:26:55 CDT CPT-20345 Venipuncture Draw Fee 11:55:52 CDT CPT-01354 Spec Collection and Handling Fee 09:16:37 CDT CPT-15600 Venipuncture Draw Fee 09:16:37 CDT
--- OUTSIDE RECORDS SUMMARY | 2018-02-26 14:19 | XMS REPORT | Clinical Summary ---
Author Author Admin, E Organization [facility] Address Unknown Phone Unavailable Allergies, Adverse Reactions, [...] Generic Name NDC Status Provider Patient Instruction [id number] 167-83-8 MG TABS 1 tab po daily [id number] 13097460782 No Longer Active Wily Gonzalez DO Active NYSTATIN 107312 UNIT/GM CREA apply to rash TID PRN NYSTATIN 32143048409 No Longer Active Wily Gonzalez DO Active POLY-IRON 150 150 MG CAPS 1 tab po bid POLYSACCHARIDE IRON COMPLEX 29448458432 No Longer Active Wily Gonzalez DO Active FLONASE ALLERGY RELIEF 50 MCG/ACT NASAL SUSP 2 sprays each nostril every day FLUTICASONE PROPIONATE 10092904430 Active Wily Gonzalez DO Active CLEMASTINE FUMARATE 1.34 MG ORAL TABS 1 tab PO BID CLEMASTINE FUMARATE 02090822525 No Longer Active Wily Gonzalez DO Active FLOMAX 0.4 MG CAPS 1 capsule in the evening for night time urination. TAMSULOSIN HCL 46149012725 No Longer Active Wily Gonzalez DO Active PROTONIX 40 MG TBEC 1 po daily PANTOPRAZOLE SODIUM 44952167993 Active Wily Gonzalez DO Active HYDROXYZINE HCL 25 MG TAB 1 two times a day as needed for anxiety HYDROXYZINE HCL 89178034439 No Longer Active Wily Gonzalez DO Active ANUSOL-HC 25 MG SUPPOSITORY 1 rectally every 12 hours for irritation HYDROCORTISONE NAEL (RECTAL) 75395370979 No Longer Active Wily Gonzalez DO Active HYDROXYZINE HCL 25 MG TABS Take one (1) tablet by mouth twice a day HYDROXYZINE HCL 34977209919 No Longer Active Wily Gonzalez DO Active ZIAC 2.5-6.25 MG TAB 1 tablet daily for high blood pressure 10/27 BISOPROLOL-HCTZ 54898570401 No Longer Active Wily Gonzalez DO Active ZIAC 2.5-6.25 MG TAB 1 tablet every morning for high blood pressure BISOPROLOL-HCTZ 84257767168 No Longer Active Wily Gonzalez DO Active AMOXICILLIN 500 MG CAPS Take one (1) tablet by mouth three times a day 05/05 AMOXICILLIN 34251926084 No Longer Active Wily Gonzalez DO Active MORPHINE SULFATE ER 100 MG CR-TABS Take one (1) tablet by mouth twice a day MORPHINE SULFATE 41610705986 No Longer Active Wily Gonzalez DO Active MORPHINE SULFATE ER 100 MG [id number]-DNR 1 capsule twice daily for chronic pain MORPHINE SULFATE 40394423320 Active Wily Gonzalez DO Active CIALIS 10 MG TABS 1 every 72 hours as needed TADALAFIL 10203199668 No Longer Active Esvin PAULA Active FLONASE 50 MCG/ACT SUSP 2 SPRAY EACH NARE DAILY FLUTICASONE PROPIONATE 80450300780 No Longer Active Esvin PAULA Active CYCLOBENZAPRINE HCL 10 MG TABS Take one (1) tablet by mouth three times a day CYCLOBENZAPRINE HCL 10318151759 Active Wily Gonzalez DO Active OPANA ER (CRUSH RESISTANT) 40 MG UP29J-YMK Take one (1) tablet by mouth twice a day OXYMORPHONE HCL 88691662358 No Longer Active Esvin PAULA Active PROAIR HFA 108 (90 BASE) MCG/ACT AERS 2 puffs every four hours as needed ALBUTEROL SULFATE 86387887902 No Longer Active Esvin PAULA Active CLEARLAX POWD 17gm q day prn constipation POLYETHYLENE GLYCOL 3350 15216363328 Active Kaylen Leigh MA Active MORPHINE SULFATE ER 100 MG EI93W-HRV Take one (1) tablet by mouth twice a day MORPHINE SULFATE 24808894408 No Longer Active Esvin PAULA Active FLEXERIL 10 MG TAB 1 tablet by mouth 3 times daily as needed CYCLOBENZAPRINE HCL 29410746859 No Longer Active Esvin PAULA Active CELEBREX 200 MG CAPS 1 tablet by mouth twice daily with meals CELECOXIB 82930009134 No Longer Active Esvin PAULA Active NEXIUM 40 MG CPDR 1 cap daily ESOMEPRAZOLE MAGNESIUM 29345947185 No Longer Active Esvin PAULA Active MOBIC 15 MG TABS 1 tab daily MELOXICAM 06660309376 No Longer Active Esvin PAULA Active LISINOPRIL 20 MG TABS Take 1 tablet by mouth daily LISINOPRIL 05564414315 No Longer Active Esvin PAULA Active DICLOFENAC SODIUM 50 MG TBEC 1 tablet by mouth four times daily DICLOFENAC SODIUM 10771111616 No Longer Active Paula Cooney RN Active VERAMYST 27.5 MCG/SPRAY SUSP 2 spray each nare daily FLUTICASONE FUROATE 03363128003 No Longer Active Megan Alicia CARVAJAL Active ENDOCET 10-325 MG TABS Take one (1) tablet by mouth three times a day OXYCODONE-ACETAMINOPHEN 83700636204 Active Wily Gonzalez DO Active ALPRAZOLAM 2 MG TABS Take one (1) tablet by mouth three times a day ALPRAZOLAM 65482632115 Active Kaylen Leigh MA Active NEXIUM 40 MG CPDR 1 cap by mouth daily ESOMEPRAZOLE MAGNESIUM 24473889955 No Longer Active Esvin PAULA Active ALPRAZOLAM 2 MG TABS 1 tablet by mouth three times daily as needed ALPRAZOLAM 62192471115 No Longer Active Esvin PAULA Active HYDROXYZINE HCL 25 MG TAB take 1 every 4-6 hours as needed 07/01 HYDROXYZINE HCL 42520791427 No Longer Active Esvin PAULA Active ENDOCET 10-325 MG TABS 1 by mouth twice a day OXYCODONE-ACETAMINOPHEN 92023245676 No Longer Active Esvin PAULA Active MS CONTIN 100 MG JA31Y-EQI 1 by mouth twice a day MORPHINE SULFATE 42449375347 No Longer Active Esvin PAULA Active SUDAFED 30 MG TAB 1-2 every 4-6 hours as needed PSEUDOEPHEDRINE HCL 56362390826 Active Marylou Melissa RPT,RMA Active VERAMYST 27.5 MCG/SPRAY SUSP 2 spray each nare daily VERAMYST 27.5 MCG/SPRAY SUSP FLUTICASONE FUROATE Inactive DICLOFENAC SODIUM 50 MG TBEC 1 tablet by mouth four times daily DICLOFENAC SODIUM 50 MG TBEC 322406 DICLOFENAC SODIUM Inactive LISINOPRIL 20 MG TABS Take 1 tablet by mouth daily LISINOPRIL 20 MG TABS 683362 LISINOPRIL Inactive MOBIC 15 MG TABS 1 tab daily MOBIC 15 MG TABS 872979 MELOXICAM Inactive NEXIUM 40 MG CPDR 1 cap daily NEXIUM 40 MG CPDR 135101 ESOMEPRAZOLE MAGNESIUM Inactive CELEBREX 200 MG CAPS 1 tablet by mouth twice daily with meals CELEBREX 200 MG CAPS 985623 CELECOXIB Inactive FLEXERIL 10 MG TAB 1 [...] a day 05/05 AMOXICILLIN 500 MG CAPS 261192 AMOXICILLIN Inactive ZIAC 2.5-6.25 MG TAB 1 tablet every morning for high blood pressure ZIAC 2.5-6.25 MG TAB 172315 BISOPROLOL-HCTZ Inactive ZIAC 2.5-6.25 MG TAB 1 tablet daily for high blood pressure 10/27 ZIAC 2.5-6.25 MG TAB 195765 BISOPROLOL-HCTZ Inactive HYDROXYZINE HCL 25 MG TABS Take one (1) tablet by mouth twice a day HYDROXYZINE HCL 25 MG TABS 187450 HYDROXYZINE HCL Inactive ANUSOL-HC 25 MG SUPPOSITORY 1 rectally every 12 hours for irritation ANUSOL-HC 25 MG SUPPOSITORY 9261185 HYDROCORTISONE NAEL (RECTAL ) Inactive HYDROXYZINE HCL 25 MG TAB 1 two times a day as needed for anxiety HYDROXYZINE HCL 25 MG TAB 678943 HYDROXYZINE HCL Inactive FLOMAX 0.4 MG CAPS 1 capsule in the evening for night time urination. FLOMAX 0.4 MG CAPS 803181 TAMSULOSIN HCL Inactive CLEMASTINE FUMARATE 1.34 MG ORAL TABS 1 tab PO BID CLEMASTINE FUMARATE 1.34 MG ORAL TABS 516206 CLEMASTINE FUMARATE Inactive POLY-IRON 150 150 MG CAPS 1 tab po bid POLY-IRON 150 150 MG CAPS POLYSACCHARIDE IRON COMPLEX Inactive NYSTATIN 595700 UNIT/GM CREA apply to rash TID PRN NYSTATIN 046222 UNIT/GM CREA 448103 NYSTATIN Inactive NPQHZDS-[id number]-FGJA 167-83-8 MG TABS 1 tab po daily [id number]-EHLJKSYWE-FXZW 167-83-8 MG TABS [id number] Inactive MS CONTIN 100 MG LZ30W-WBI 1 by mouth twice a day MS CONTIN 100 MG SN07Q-ARQ MORPHINE SULFATE Inactive ENDOCET 10-325 MG TABS 1 by mouth twice a day ENDOCET 10-325 MG TABS 7605738 OXYCODONE-ACETAMINOPHEN Inactive HYDROXYZINE HCL 25 MG TAB take 1 every 4-6 hours as needed 07/01 HYDROXYZINE HCL 25 MG TAB 538765 HYDROXYZINE HCL Inactive ALPRAZOLAM 2 MG TABS 1 tablet by mouth three times daily as needed ALPRAZOLAM 2 MG TABS 205491 ALPRAZOLAM Inactive NEXIUM 40 MG CPDR 1 cap by mouth daily NEXIUM 40 MG CPDR 205263 ESOMEPRAZOLE MAGNESIUM Inactive Advance Directives Directive Description [...] ... - Chemistry sodium, serum 140 mmol/L 800-260 6843/03/25 carbon dioxide, venous blood 31.3 mmol/L 21.0-32.0 potassium, serum 4.0 mmol/L 3.5-5.2 chloride, serum 101 mmol/L 98-107 blood glucose 96 mg/dL 65-110 urea nitrogen, blood 7 mg/dL 7-18 creatinine, serum 0.94 mg/dL 0.55-1.30 alanine aminotransferase (SGPT), serum 23 U/L 12-78 aspartate aminotransferase (SGOT), serum 21 U/L 15-37 calcium, serum 8.9 mg/dL 8.5-10.1 bilirubin, serum, total 0.30 mg/dL 0.00-1.00 cholesterol, serum 169 mg/dL 944-077 6411/03/25 triglyceride, serum, fasting 143 mg/dL 30-200 HDL [...] 5.0-8.5 Encounters Code Encounter Date Provider Facility CPT-39701 Level 3 Est. Patient 11:07:48 CDT Wily Gonzalez [facility] CPT-33645 Level 3 Est. Patient 11:24:24 CDT Wily Gonzalez [facility] CPT-48269 Level 3 Est. Patient 15:19:54 OUTSIDE SALES CONSULTANT Wily Gonzalez [facility] CPT-38218 Level 3 Est. Patient 10:04:45 CDT Wily Gonzalez [facility] CPT-93543 Level 3 Est. Patient 13:04:06 CDT Wily Gonzalez [facility] CPT-74940 Level 3 Est. Patient 12:23:04 CDT Wily Gonzalez [facility] CPT-10016 Level 3 Est. Patient 15:43:10 OUTSIDE SALES CONSULTANT Wily Gonzalez [facility] CPT-46287 Level 3 Est. Patient 16:10:54 CDT Wily Gonzalez [facility] CPT-62891 Level 3 Est. Patient 19:50:51 CDT Wily Gonzalez [facility] CPT-24247 Level 3 Est. Patient 12:02:30 OUTSIDE SALES CONSULTANT Wily Gonzalez [facility] CPT-72222 Level 3 Est. Patient 12:03:11 OUTSIDE SALES CONSULTANT Wily Gonzalez [facility] CPT-65552 Level 3 Est. Patient 12:01:41 OUTSIDE SALES CONSULTANT Wily Gonzalez [facility] CPT-61139 Level 3 Est. Patient 11:51:24 OUTSIDE SALES CONSULTANT Wily Gonzalez [facility] CPT-04837 Level 3 Est. Patient 11:58:20 OUTSIDE SALES CONSULTANT Wily Zhang Carlos [facility] CPT-75850 Level 3 Est. Patient 08:31:36 OUTSIDE SALES CONSULTANT Wily Gonzalez [facility] CPT-65184 Level 3 Est. Patient 21:57:36 CDT Wily Gonzalez DO [facility] CPT-47308 Level 3 Est. Patient 10:49:58 CDT Esvin PAULA [facility]-79855 Level 3 Est. Patient 11:22:52 CDT Esvin PAULA [facility] CPT-12030 Level 3 Est. Patient 13:49:41 CDT Esvin PAULA [facility] CPT-44252 Level 3 Est. Patient 11:54:53 CDT Esvin Tristan [facility] CPT-87689 Level 3 Est. Patient 09:07:11 CDT Esvin PAULA [facility] CPT-24686 Level 3 Est. Patient 13:52:47 CDT Esvin PAULA [facility] CPT-74257 Level 3 Est. Patient 11:26:46 CDT Esvin PAULA [facility] CPT-69736 Level 3 Est. Patient 10:25:00 OUTSIDE SALES CONSULTANT Esvin PAULA [facility] CPT-35135 Level 3 Est. Patient 11:39:11 OUTSIDE SALES CONSULTANT Esvin PAULA [facility] CPT-28459 Level 3 Est. Patient 13:24:24 OUTSIDE SALES CONSULTANT Esvin PAULA [facility] CPT-84031 Level 3 Est. Patient 10:26:13 OUTSIDE SALES CONSULTANT Esvin PAULA [facility] CPT-98929 Level 3 Est. Patient 10:21:21 CDT Esvin PAULA [facility] CPT-31828 Level 3 Est. Patient 10:26:30 CDT Esvin PAULA [facility] CPT-49236 Level 3 Est. Patient 09:16:37 CDT Esvin PAULA [facility]-32184 Level 3 Est. Patient 09:06:58 CDT Esvin Tristan [facility] CPT-32906 Level 3 Est. Patient 10:05:29 CDT Esvin Tristan [facility] CPT-27773 Level 3 Est. Patient 10:38:45 CDT Esvin Hudson [facility] CPT-69724 Level 3 Est. Patient 10:09:45 CDT Esvin Hudson [facility] CPT-69811 Level 3 Est. Patient 09:26:37 CDT Esvin Tristan [facility] CPT-95436 Level 3 Est. Patient 10:34:42 OUTSIDE SALES CONSULTANT Esvin Tristan [facility] CPT-27240 Level 3 Est. Patient 10:45:47 OUTSIDE SALES CONSULTANT Esvin Tristan [facility] CPT-76142 Level 3 Est. Patient 10:45:22 OUTSIDE SALES CONSULTANT Esvin Tristan [facility] CPT-41738 Level 3 Est. Patient 14:18:30 OUTSIDE SALES CONSULTANT Esvin Tristan [facility] CPT-52212 Level 3 Est. Patient 13:53:29 OUTSIDE SALES CONSULTANT Esvin Tristan [facility] CPT-93860 Level 3 Est. Patient 10:34:11 CDT Esvin Tristan [facility] Procedures Code Procedure Name Date Entry Date Standard Description CPT-93405 Venipuncture Draw Fee 09:26:55 CDT CPT-53499 Venipuncture Draw Fee 11:55:52 CDT CPT-38167 Spec Collection and Handling Fee 09:16:37 CDT CPT-11193 Venipuncture Draw Fee 09:16:37 CDT
--- OUTSIDE RECORDS SUMMARY | 2018-02-26 14:20 | XMS REPORT | Clinical Summary ---
Author Author Admin, E Organization [facility] Address Unknown Phone Unavailable Allergies, Adverse [...] unspecified site Health screening V70.0 Active Wily Vicente Gonzalez DO Routine general medical examination at a health care facility Tobacco abuse 305.1 Active Wily Gonzalez DO Tobacco use disorder Wellness exam V70.0 Active Wily Vicente Gonzalez DO Routine general medical examination at a health care facility Elevated blood pressure without diagnosis of hypertension 796.2 Active Wily Vicente Gonzalez DO Elevated blood pressure reading without diagnosis of hypertension Compression fracture, spine 805.8 Active Tiffanie Bravo LRT Closed fracture of unspecified part of vertebral column without mention of spinal cord injury Cigarette smoker 305.1 Active Tiffanie Bravo LRT Tobacco use disorder Osteoporosis 733.00 Active Rose Turcios Osteoporosis, unspecified 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 Active Marylou Melissa Scribe Adjustment disorder with depressed mood High blood pressure 401.9 Active Wily Gonzalez DO Unspecified essential hypertension Body Mass Index 24.0-24.9 Adult Active Wily Gonzalez DO Body Mass Index between 19-24, adult HYPERTENSION ICD-401.9 Inactive Wily Gonzalez DO ANKLE [...] Instructions Start Date Stop Date Generic Name ND Status Provider Patient Instruction METOPROLOL SUCCINATE ER 25 MG ORAL TABLET EXTENDED RELEASE 24 HOUR 1 pill by mouth daily for blood pressure METOPROLOL SUCCINATE 12551166209 Active Wily Gonzalez DO Active METOPROLOL TARTRATE 25 MG ORAL TABLET 1/2 tab by mouth twice dialy for blood pressure METOPROLOL TARTRATE 57823159922 No Longer Active Wily Gonzalez DO Active PROTONIX 40 MG ORAL TABLET DELAYED RELEASE 1 po prn PANTOPRAZOLE SODIUM 21244282635 Active Wily Gonzalez DO Active TRIAMCINOLONE ACETONIDE 0.1 % EXTERNAL CREAM Apply to affected area 3 times daily for up to 2 weeks TRIAMCINOLONE ACETONIDE 95239223336 No Longer Active Wily Gonzalez DO Active CHANTIX 1 MG ORAL TABLET 1 twice a day VARENICLINE TARTRATE 67125422782 No Longer Active Wily Gonzalez DO Active RAUL-MAG 500-250 MG ORAL TABLET Take one by mouth daily CALCIUM -MAGNESIUM 41947073870 Active Wily Gonzalez DO Active FOSAMAX 70 MG ORAL TABLET 1 po qweek. Take 30min prior to first food/drink. Avoid lying down x 1 hour. ALENDRONATE SODIUM 01205153868 Active Laurie Latham LPN Active CALCIUM 600 MG ORAL TABLET 1 po q day CALCIUM 08187690413 Active Rose Turcios Active [id number] 167-83-8 MG ORAL TABLET 1 tab po daily [id number] 23444568770 No Longer Active iWly Gonzalez DO Active NYSTATIN 433567 UNIT/GM EXTERNAL CREAM apply to rash TID PRN 2015 NYSTATIN 29137372898 No Longer Active Wily Gonzalez DO Active POLY-IRON 150 150 MG ORAL CAPSULE 1 tab po bid POLYSACCHARIDE IRON COMPLEX 84401575640 No Longer Active Wily Gonzalez DO Active FLONASE ALLERGY RELIEF 50 MCG/ACT NASAL SUSPENSION 2 sprays each nostril every day FLUTICASONE PROPIONATE 17601995843 Active Rose Turcios Active CLEMASTINE FUMARATE 1.34 MG ORAL TABLET 1 tab PO BID CLEMASTINE FUMARATE 27335537576 No Longer Active Wily Gonzalez DO Active FLOMAX 0.4 MG ORAL CAPSULE 1 capsule in the evening for night time urination. TAMSULOSIN HCL 71332290281 No Longer Active Wily Gonzalez DO Active HYDROXYZINE HCL 25 MG ORAL TABLET 1 two times a day as needed for anxiety HYDROXYZINE HCL 26734621094 No Longer Active Wily Gonzalez DO Active ANUSOL-HC 25 MG RECTAL SUPPOSITORY 1 rectally every 12 hours for irritation HYDROCORTISONE NAEL (RECTAL) 03504979857 No Longer Active Wily Gonzalez DO Active HYDROXYZINE HCL 25 MG ORAL TABLET Take one (1) tablet by mouth twice a day HYDROXYZINE HCL 99100117716 No Longer Active Wily Gonzalez DO Active ZIAC 2.5-6.25 MG ORAL TABLET 1 tablet daily for high blood pressure BISOPROLOL-HCTZ 71804962128 No Longer Active Wily Gonzalez DO Active ZIAC 2.5-6.25 MG ORAL TABLET 1 tablet every morning for high blood pressure BISOPROLOL-HCTZ 63866463686 No Longer Active Wily Gonzalez DO Active AMOXICILLIN 500 MG ORAL CAPSULE Take one (1) tablet by mouth three times a day AMOXICILLIN 63006475917 No Longer Active Wily Gonzalez DO Active MORPHINE SULFATE ER 100 MG ORAL TABLET EXTENDED RELEASE Take one (1) tablet by mouth twice a day MORPHINE SULFATE 82554753015 No Longer Active Wily Gonzalez DO Active MORPHINE SULFATE ER 100 MG ORAL CAPSULE EXTENDED RELEASE 24 HOUR 1 capsule twice daily for chronic pain MORPHINE SULFATE 09058906374 Active Wily Gonzalez DO Active CIALIS 10 MG ORAL TABLET 1 every 72 hours as needed TADALAFIL 81915508858 No Longer Active Esvin PAULA Active FLONASE 50 MCG/ACT NASAL SUSPENSION 2 SPRAY EACH NARE DAILY 05/08 FLUTICASONE PROPIONATE 09141818014 No Longer Active Esvin PAULA Active CYCLOBENZAPRINE HCL 10 MG ORAL TABLET Take one (1) tablet by mouth three times a day CYCLOBENZAPRINE HCL 84570556580 Active Rose Jimenezley Active OPANA ER 40 MG ORAL TABLET ER 12 HOUR ABUSE-DETERRENT Take one (1) tablet by mouth twice a day OXYMORPHONE HCL 02421601536 No Longer Active Esvin PAULA Active PROAIR HFA 108 (90 Base) MCG/ACT INHALATION AEROSOL SOLUTION 2 puffs every four hours as needed ALBUTEROL SULFATE 16155362964 No Longer Active Esvin PAULA Active CLEARLAX ORAL POWDER 17gm q day prn constipation POLYETHYLENE GLYCOL 3350 35345319837 Active Wily Gonzalez DO Active MORPHINE SULFATE ER 100 MG ORAL CAPSULE EXTENDED RELEASE 24 HOUR Take one (1) tablet by mouth twice a day MORPHINE SULFATE 71373022108 No Longer Active Esvin PAULA Active FLEXERIL 10 MG TAB 1 tablet by mouth 3 times daily as needed CYCLOBENZAPRINE HCL 32215432169 No Longer Active Esvin PAULA Active CELEBREX 200 MG ORAL CAPSULE 1 tablet by mouth twice daily with meals 2012 CELECOXIB 06059882660 No Longer Active Esvin PAULA Active NEXIUM 40 MG ORAL CAPSULE DELAYED RELEASE 1 cap daily ESOMEPRAZOLE MAGNESIUM 56053494445 No Longer Active Esvin PAULA Active MOBIC 15 MG ORAL TABLET 1 tab daily MELOXICAM 88028547032 No Longer Active Esvin PAULA Active LISINOPRIL 20 MG ORAL TABLET Take 1 tablet by mouth daily LISINOPRIL 23066542612 No Longer Active Esvin PAULA Active DICLOFENAC SODIUM 50 MG ORAL TABLET DELAYED RELEASE 1 tablet by mouth four times daily DICLOFENAC SODIUM 81468939143 No Longer Active Paula Eros RN Active VERAMYST 27.5 MCG/SPRAY NASAL SUSPENSION 2 spray each nare daily FLUTICASONE FUROATE 30013832791 No Longer Active Megna Vargas RN Active ENDOCET 10-325 MG ORAL TABLET Take one (1) tablet by mouth three times a day OXYCODONE-ACETAMINOPHEN 60636395586 Active Wily Gonzalez DO Active ALPRAZOLAM 2 MG ORAL TABLET Take one (1) tablet by mouth three times a day ALPRAZOLAM 50469178880 Active Wily Gonzalez DO Active NEXIUM 40 MG ORAL CAPSULE DELAYED RELEASE 1 cap by mouth daily ESOMEPRAZOLE MAGNESIUM 04054158371 No Longer Active Esvin PAULA Active ALPRAZOLAM 2 MG ORAL TABLET 1 tablet by mouth three times daily as needed ALPRAZOLAM 70826875483 No Longer Active Esvin PAULA Active HYDROXYZINE HCL 25 MG ORAL TABLET take 1 every 4-6 hours as needed HYDROXYZINE HCL 47092628764 No Longer Active Esvin PAULA Active ENDOCET 10-325 MG ORAL TABLET 1 by mouth twice a day OXYCODONE-ACETAMINOPHEN 96333558009 No Longer Active Esvin PAULA Active MS CONTIN 100 MG ORAL TABLET EXTENDED RELEASE 1 by mouth twice a day MORPHINE SULFATE 83348349539 No Longer Active Esvin PAULA Active SUDAFED 30 MG ORAL TABLET 1-2 every 4-6 hours as needed PSEUDOEPHEDRINE HCL 34055936057 Active Wily Gonzalez DO Active VERAMYST 27.5 MCG/SPRAY NASAL SUSPENSION 2 spray each nare daily VERAMYST 27.5 MCG/SPRAY NASAL SUSPENSION FLUTICASONE FUROATE Inactive DICLOFENAC SODIUM 50 MG ORAL TABLET DELAYED RELEASE 1 tablet by mouth four times daily DICLOFENAC SODIUM 50 MG ORAL TABLET DELAYED RELEASE 053995 DICLOFENAC SODIUM Inactive LISINOPRIL 20 MG ORAL TABLET Take 1 tablet by mouth daily LISINOPRIL 20 MG ORAL TABLET 649440 LISINOPRIL Inactive MOBIC 15 MG ORAL TABLET 1 tab daily MOBIC 15 MG ORAL TABLET 625565 MELOXICAM Inactive NEXIUM 40 MG ORAL CAPSULE DELAYED RELEASE 1 cap daily NEXIUM 40 MG ORAL CAPSULE DELAYED RELEASE 705444 ESOMEPRAZOLE MAGNESIUM Inactive CELEBREX 200 MG ORAL CAPSULE 1 tablet by mouth twice daily with meals 2012 CELEBREX 200 MG ORAL CAPSULE 567408 CELECOXIB Inactive FLEXERIL 10 MG TAB 1 tablet by mouth 3 times daily as needed FLEXERIL 10 MG TAB CYCLOBENZAPRINE HCL Inactive PROAIR HFA 108 (90 Base) MCG/ACT INHALATION AEROSOL SOLUTION 2 puffs every four hours as needed PROAIR HFA 108 (90 Base) MCG/ACT INHALATION AEROSOL SOLUTION ALBUTEROL SULFATE Inactive FLONASE 50 MCG/ACT NASAL SUSPENSION 2 SPRAY EACH NARE DAILY 05/08 FLONASE 50 MCG/ACT NASAL SUSPENSION 3234064 FLUTICASONE PROPIONATE Inactive CIALIS 10 MG ORAL TABLET 1 every 72 hours as needed CIALIS 10 MG ORAL TABLET TADALAFIL Inactive MORPHINE SULFATE ER 100 MG ORAL TABLET EXTENDED RELEASE Take one (1) tablet by mouth twice a day MORPHINE SULFATE ER 100 MG ORAL TABLET EXTENDED RELEASE MORPHINE SULFATE Inactive AMOXICILLIN 500 MG ORAL CAPSULE Take one (1) tablet by mouth three times a day AMOXICILLIN 500 MG ORAL CAPSULE 632601 AMOXICILLIN Inactive ZIAC 2.5-6.25 MG ORAL TABLET 1 tablet every morning for high blood pressure ZIAC 2.5-6.25 MG ORAL TABLET 367198 BISOPROLOL-HCTZ Inactive ZIAC 2.5-6.25 MG ORAL TABLET 1 tablet daily for high blood pressure ZIAC 2.5-6.25 MG ORAL TABLET 961990 BISOPROLOL-HCTZ Inactive HYDROXYZINE HCL 25 MG ORAL TABLET Take one (1) tablet by mouth twice a day HYDROXYZINE HCL 25 MG ORAL TABLET 007682 HYDROXYZINE HCL Inactive ANUSOL-HC 25 MG RECTAL SUPPOSITORY 1 rectally every 12 hours for irritation ANUSOL-HC 25 MG RECTAL SUPPOSITORY 5698310 HYDROCORTISONE NAEL (RECTAL) Inactive HYDROXYZINE HCL 25 MG ORAL TABLET 1 two times a day as needed for anxiety HYDROXYZINE HCL 25 MG ORAL TABLET 875402 HYDROXYZINE HCL Inactive FLOMAX 0.4 MG ORAL CAPSULE 1 capsule in the evening for night time urination. FLOMAX 0.4 MG ORAL CAPSULE 953410 TAMSULOSIN HCL Inactive CLEMASTINE FUMARATE 1.34 MG ORAL TABLET 1 tab PO BID CLEMASTINE FUMARATE 1.34 MG ORAL TABLET 387572 CLEMASTINE FUMARATE Inactive POLY-IRON 150 150 MG ORAL CAPSULE 1 tab po bid POLY-IRON 150 150 MG ORAL CAPSULE POLYSACCHARIDE IRON COMPLEX Inactive NYSTATIN 054400 UNIT/GM EXTERNAL CREAM apply to rash TID PRN 2015 NYSTATIN 243178 UNIT/GM EXTERNAL CREAM 797944 NYSTATIN Inactive [id number] 167-83-8 MG ORAL TABLET 1 tab po daily [id number] 167-83-8 MG ORAL TABLET CALCIUM-MAGNESIUM -ZINC Inactive CHANTIX 1 MG ORAL TABLET 1 twice a day CHANTIX 1 MG ORAL TABLET VARENICLINE TARTRATE Inactive TRIAMCINOLONE ACETONIDE 0.1 % EXTERNAL CREAM Apply to affected area 3 times daily for up to 2 weeks TRIAMCINOLONE ACETONIDE 0.1 % EXTERNAL CREAM 4372280 TRIAMCINOLONE ACETONIDE Inactive METOPROLOL TARTRATE 25 MG ORAL TABLET 1/2 tab by mouth twice dialy for blood pressure METOPROLOL TARTRATE 25 MG ORAL TABLET 494146 METOPROLOL TARTRATE Inactive MS CONTIN 100 MG ORAL TABLET EXTENDED RELEASE 1 by mouth twice a day MS CONTIN 100 MG ORAL TABLET EXTENDED RELEASE MORPHINE SULFATE Inactive ENDOCET 10-325 MG ORAL TABLET 1 by mouth twice a day ENDOCET 10-325 MG ORAL TABLET 5727408 OXYCODONE-ACETAMINOPHEN Inactive HYDROXYZINE HCL 25 MG ORAL TABLET take 1 every 4-6 hours as needed HYDROXYZINE HCL 25 MG ORAL TABLET 256700 HYDROXYZINE HCL Inactive ALPRAZOLAM 2 MG ORAL TABLET 1 tablet by mouth three times daily as needed ALPRAZOLAM 2 MG ORAL TABLET 236375 ALPRAZOLAM Inactive NEXIUM 40 MG ORAL CAPSULE DELAYED RELEASE 1 cap by mouth daily NEXIUM 40 MG ORAL CAPSULE DELAYED RELEASE 722019 ESOMEPRAZOLE MAGNESIUM Inactive Advance Directives Directive Description Start Date PERMISSION TO SHARE Vital Signs Date Name Value Unit Range Description blood pressure, diastolic 77 mm[Hg] BP stoddard blood pressure, systolic 121 mm[Hg] BP sys height E&M 68 [in_us] Bdy height pulse rate E&M 72 /min Heart rate temperature E&M 97.4 [degF] Body temperature weight E&M 164 [lb_av] Weight Measured blood pressure, diastolic 82 mm[Hg] BP stoddard blood pressure, systolic 140 mm[Hg] BP sys pulse rate E&M 89 /min Heart rate temperature E&M 96.7 [degF] Body temperature weight E&M 160 [lb_av] Weight Measured blood pressure, diastolic 84 mm[Hg] BP stoddard blood pressure, systolic 131 mm[Hg] BP sys height E&M 68 [in_us] Bdy height pulse rate E&M 102 /min Heart rate temperature E&M 98.6 [degF] Body temperature weight E&M 162.31 [lb_av] Weight Measured Diagnostic Results Date Name Value Unit Range Description Lab Report: CBC - Hematology leukocyte count, blood 7.8 10^3/MM^3 10*3/mm3 4.6-10.2 erythrocyte (RBC) count 4.42 10^6/MM^3 10*6/mm3 4.50-6.50 hemoglobin, blood 14.1 g/dL 14.0-18.0 hematocrit, blood 42.2 % 40.0-54.0 mean corpuscular volume, RBC 96 fL 80-97 mean corpuscular hemoglobin, RBC 31.9 pg 27.0-31.2 mean corpuscular hemoglobin concentration, RBC 33.4 G/DL % 31.8- 35.4 red blood cell distribution width 14.6 % 11.6-14.8 platelet count 280 10^3/MM^3 10*3/mm3 142-424 Lab Report: Comp. Metabolic Panel, Lipid Panel, Prostatic Specific Ag - Chemistry sodium, serum 141 mmol/L [phone]/05/03 carbon dioxide, venous blood 35.9 mmol/L 21.0-32.0 potassium, serum 4.2 mmol/L 3.5-5.2 chloride, serum 105 mmol/L 98-107 blood glucose 77 mg/dL 65-95 urea nitrogen, blood 12 mg/dL 7-18 creatinine, serum 0.90 mg/dL 0.60-1.30 alanine aminotransferase (SGPT), serum 19 U/L 12-78 aspartate aminotransferase (SGOT), serum 14 U/L 15-37 calcium, serum 9.1 mg/dL 8.5-10.1 bilirubin, serum, total 0.20 mg/dL 0.00-1.00 cholesterol, serum 178 mg/dL 364-561 5417/05/03 triglyceride, serum, fasting 96 mg/dL 30-200 HDL cholesterol, serum 78 mg/dL 32-60 LDL cholesterol, serum 81 mg/dL 0-130 prostate specific antigen 0.04 ng/mL 0.00-4.00 Encounters Code Encounter Date Provider Facility CPT-71783 Level 4 Est. Patient 14:48:04 CDT Wily Gonzalez [facility] CPT-05410 Level 4 Est. Patient 16:18:01 CDT Wily Gonzalez [facility] CPT-76353 Level 4 Est. Patient 16:17:36 CDT Wily Zhang [facility] CPT-76420 Level 4 Est. Patient 12:51:46 CDT Wily Zhang [facility] CPT-58043 Level 4 Est. Patient 10:10:03 CDT Wily Zhang [facility] CPT-43727 Level 3 Est. Patient 14:25:57 CDT Wily Zhang [facility] CPT-36315 Level 3 Est. Patient 09:51:37 ANCIENT ART CURATOR Wily Gonzalez [facility] CPT-66977 Level 3 Est. Patient 11:07:48 CDT Wily Zhang [facility] CPT-52011 Level 3 Est. Patient 11:24:24 CDT Wily Zhang [facility] CPT-54048 Level 3 Est. Patient 15:19:54 ANCIENT ART CURATOR Wily Zhang [facility] CPT-04457 Level 3 Est. Patient 10:04:45 CDT Wily Gonzalez [facility] CPT-14339 Level 3 Est. Patient 13:04:06 CDT Wily Zhang [facility] CPT-12601 Level 3 Est. Patient 12:23:04 CDT Wily Zhang [facility] CPT-93212 Level 3 Est. Patient 15:43:10 ANCIENT ART CURATOR Wily Zhang [facility] CPT-38734 Level 3 Est. Patient 16:10:54 CDT Wily Vicente [facility] CPT-07608 Level 3 Est. Patient 19:50:51 CDT Wily Zhang [facility] CPT-20935 Level 3 Est. Patient 12:02:30 ANCIENT ART CURATOR Wily Gonzalez [facility] CPT-70856 Level 3 Est. Patient 12:03:11 ANCIENT ART CURATOR Wily Gonzalez [facility] CPT-66807 Level 3 Est. Patient 12:01:41 ANCIENT ART CURATOR Wily Gonzalez [facility] CPT-33950 Level 3 Est. Patient 11:51:24 ANCIENT ART CURATOR Wily Gonzalez [facility] CPT-79517 Level 3 Est. Patient 11:58:20 ANCIENT ART CURATOR Wily Gonzalez [facility] CPT-36720 Level 3 Est. Patient 08:31:36 ANCIENT ART CURATOR Wily Gonzalez [facility] CPT-91768 Level 3 Est. Patient 21:57:36 CDT Wily Gonzalez [facility] CPT-99077 Level 3 Est. Patient 10:49:58 CDT Esvin PAULA [facility] CPT-03990 Level 3 Est. Patient 11:22:52 CDT Esvin PAULA [facility] CPT-58451 Level 3 Est. Patient 13:49:41 CDT Esvin PAULA [facility] CPT-20039 Level 3 Est. Patient 11:54:53 CDT Esvin PAULA [facility] CPT-10465 Level 3 Est. Patient 09:07:11 CDT Esvin PAULA [facility] CPT-84844 Level 3 Est. Patient 13:52:47 CDT Esvin PAULA [facility] CPT-12561 Level 3 Est. Patient 11:26:46 CDT Esvin PAULA [facility] CPT-63402 Level 3 Est. Patient 10:25:00 ANCIENT ART CURATOR Esvin PAULA [facility] CPT-87710 Level 3 Est. Patient 11:39:11 ANCIENT ART CURATOR Esvin PAULA [facility] CPT-91431 Level 3 Est. Patient 13:24:24 ANCIENT ART CURATOR Esvin PAULA [facility] CPT-99528 Level 3 Est. Patient 10:26:13 ANCIENT ART CURATOR Esvin PAULA [facility] CPT-35486 Level 3 Est. Patient 10:21:21 CDT Esvin PAULA [facility] CPT-84257 Level 3 Est. Patient 10:26:30 CDT Esvin PAULA [facility] CPT-66399 Level 3 Est. Patient 09:16:37 CDT Esvin PAULA [facility]-11589 Level 3 Est. Patient 09:06:58 CDT Esvin PAULA [facility] CPT-86221 Level 3 Est. Patient 10:05:29 CDT Esvin PAULA [facility] CPT-57445 Level 3 Est. Patient 10:38:45 CDT Esvin PAULA [facility] CPT-10266 Level 3 Est. Patient 10:09:45 CDT Esvin PAULA [facility] CPT-11125 Level 3 Est. Patient 09:26:37 CDT Esvin PAULA [facility] CPT-13827 Level 3 Est. Patient 10:34:42 ANCIENT ART CURATOR Esvin PAULA [facility] CPT-92814 Level 3 Est. Patient 10:45:47 ANCIENT ART CURATOR Esvin PAULA [facility] CPT-45792 Level 3 Est. Patient 10:45:22 ANCIENT ART CURATOR Esvin PAULA [facility] CPT-93555 Level 3 Est. Patient 14:18:30 ANCIENT ART CURATOR Esvin PAULA [facility] CPT-60372 Level 3 Est. Patient 13:53:29 ANCIENT ART CURATOR Esvin Tristan [facility] CPT-80055 Level 3 Est. Patient 10:34:11 CDT Esvin Tristan [facility] Procedures Code Procedure Name Date Entry Date Standard Description CPT-G0439 Subsequent Annual Wellness Exam 12:28:53 CDT CPT-49122 Smoking Cessation counseling 10:10:03 CDT CPT-13709 Smoking Cessation counseling 14:25:57 CDT CPT-96893 Bone Density - XRAY USE ONLY 11:29:32 CDT CPT-41289 LS spine AP and Lat - XRAY USE ONLY 10:07:43 ANCIENT ART CURATOR 10/26 CPT-14873 Venipuncture Draw Fee 09:51:16 ANCIENT ART CURATOR CPT-44543 Smoking Cessation counseling 09:39:47 ANCIENT ART CURATOR CPT-G0438 Initial Annual Wellness Exam 09:37:28 ANCIENT ART CURATOR CPT-98073 Venipuncture Draw Fee 09:26:55 CDT CPT-72051 Venipuncture Draw Fee 11:55:52 CDT CPT-74481 Spec Collection and Handling Fee 09:16:37 CDT CPT-15531 Venipuncture Draw Fee 09:16:37 CDT
--- OUTSIDE RECORDS SUMMARY | 2018-02-26 14:21 | XMS REPORT | Clinical Summary ---
Author Author Admin, E Organization [facility] Address Unknown Phone Unavailable Allergies, Adverse [...] sprays each nostril every day FLUTICASONE PROPIONATE 30807188978 Active Wily Gonzalez DO Active CLEMASTINE FUMARATE 1.34 MG ORAL TABS 1 tab PO BID CLEMASTINE FUMARATE 77686965139 No Longer Active Wily Gonzalez DO Active FLOMAX 0.4 MG CAPS 1 capsule in the evening for night time urination. TAMSULOSIN HCL 55816617724 No Longer Active Wily Gonzalez DO Active PROTONIX 40 MG TBEC 1 po daily PANTOPRAZOLE SODIUM 41480234111 Active Wily Gonzalez DO Active HYDROXYZINE HCL 25 MG TAB 1 two times a day as needed for anxiety HYDROXYZINE HCL 40266240173 No Longer Active Wily Gonzalez DO Active ANUSOL-HC 25 MG SUPPOSITORY 1 rectally every 12 hours for irritation HYDROCORTISONE NAEL (RECTAL) 49016619843 No Longer Active Wily Gonzalez DO Active HYDROXYZINE HCL 25 MG TABS Take one (1) tablet by mouth twice a day HYDROXYZINE HCL 13268170017 No Longer Active Wily Gonzalez DO Active ZIAC 2.5-6.25 MG TAB 1 tablet daily for high blood pressure 10/27 BISOPROLOL-HCTZ 62860726336 No Longer Active Wily Gonzalez DO Active [id number] 167-83-8 MG TABS 1 tab po daily CALCIUM -MAGNESIUM-ZINC 17705483682 Active Wily Gonzalez DO Active NYSTATIN 709116 UNIT/GM CREA apply to rash TID PRN NYSTATIN 59498439271 Active Wily Gonzalez DO Active ZIAC 2.5-6.25 MG TAB 1 tablet every morning for high blood pressure BISOPROLOL-HCTZ 68654495909 No Longer Active Wily Gonzalez DO Active AMOXICILLIN 500 MG CAPS Take one (1) tablet by mouth three times a day 05/05 AMOXICILLIN 56196318850 No Longer Active Wily Gonzalez DO Active MORPHINE SULFATE ER 100 MG CR-TABS Take one (1) tablet by mouth twice a day MORPHINE SULFATE 75355663228 No Longer Active Wily Gonzalez DO Active MORPHINE SULFATE ER 100 MG [id number] 1 capsule twice daily for chronic pain MORPHINE SULFATE 44818518201 Active Marylou Melissa RPT,RMA Active CIALIS 10 MG TABS 1 every 72 hours as needed TADALAFIL 57617142730 No Longer Active Esvin PAULA Active FLONASE 50 MCG/ACT SUSP 2 SPRAY EACH NARE DAILY FLUTICASONE PROPIONATE 09575180167 No Longer Active Esvin PAULA Active CYCLOBENZAPRINE HCL 10 MG TABS Take one (1) tablet by mouth three times a day CYCLOBENZAPRINE HCL 14011271131 Active Wily Gonzalez DO Active OPANA ER (CRUSH RESISTANT) 40 MG [id number] Take one (1) tablet by mouth twice a day OXYMORPHONE HCL 78435187874 No Longer Active Esvin PAULA Active POLY-IRON 150 150 MG CAPS 1 tab po bid POLYSACCHARIDE IRON COMPLEX 34352480569 Active Wily Gonzalez DO Active PROAIR HFA 108 (90 BASE) MCG/ACT AERS 2 puffs every four hours as needed ALBUTEROL SULFATE 26972503288 No Longer Active Esvin PAULA Active CLEARLAX POWD 17gm q day prn constipation POLYETHYLENE GLYCOL 3350 87902084954 Active Kaylen Leigh MA Active MORPHINE SULFATE ER 100 MG [id number] Take one (1) tablet by mouth twice a day MORPHINE SULFATE 41561079177 No Longer Active Esvin PAULA Active FLEXERIL 10 MG TAB 1 tablet by mouth 3 times daily as needed CYCLOBENZAPRINE HCL 01084103624 No Longer Active Esvin PAULA Active CELEBREX 200 MG CAPS 1 tablet by mouth twice daily with meals CELECOXIB 86760413681 No Longer Active Esvin PAULA Active NEXIUM 40 MG CPDR 1 cap daily ESOMEPRAZOLE MAGNESIUM 81578703012 No Longer Active Esvin PAULA Active MOBIC 15 MG TABS 1 tab daily MELOXICAM 62823815837 No Longer Active Esvin PAULA Active LISINOPRIL 20 MG TABS Take 1 tablet by mouth daily LISINOPRIL 17188817114 No Longer Active Esvin PAULA Active DICLOFENAC SODIUM 50 MG TBEC 1 tablet by mouth four times daily DICLOFENAC SODIUM 70392165579 No Longer Active Paula Cooney RN Active VERAMYST 27.5 MCG/SPRAY SUSP 2 spray each nare daily FLUTICASONE FUROATE 58447097308 No Longer Active Megan Vargas RN Active ENDOCET 10-325 MG TABS Take one (1) tablet by mouth three times a day OXYCODONE-ACETAMINOPHEN 97180306057 Active Marylou Melissa RPT,RMA Active ALPRAZOLAM 2 MG TABS Take one (1) tablet by mouth three times a day ALPRAZOLAM 24947669090 Active Marylou Melissa RPT,RMA Active NEXIUM 40 MG CPDR 1 cap by mouth daily ESOMEPRAZOLE MAGNESIUM 16875110553 No Longer Active Esvin PAULA Active ALPRAZOLAM 2 MG TABS 1 tablet by mouth three times daily as needed ALPRAZOLAM 09806835043 No Longer Active Esvin PAULA Active HYDROXYZINE HCL 25 MG TAB take 1 every 4-6 hours as needed 07/01 HYDROXYZINE HCL 49722325494 No Longer Active Esvin PAULA Active ENDOCET 10-325 MG TABS 1 by mouth twice a day OXYCODONE-ACETAMINOPHEN 57057469383 No Longer Active Esvin PAULA Active MS CONTIN 100 MG [id number] 1 by mouth twice a day MORPHINE SULFATE 94387582992 No Longer Active Esvin PAULA Active SUDAFED 30 MG TAB 1-2 every 4-6 hours as needed PSEUDOEPHEDRINE HCL 80985513489 Active Marylou Melissa RPT,RMA Active VERAMYST 27.5 MCG/SPRAY SUSP 2 spray each nare daily VERAMYST 27.5 MCG/SPRAY SUSP FLUTICASONE FUROATE Inactive DICLOFENAC SODIUM 50 MG TBEC 1 tablet by mouth four times daily DICLOFENAC SODIUM 50 MG TBEC 940948 DICLOFENAC SODIUM Inactive LISINOPRIL 20 MG TABS Take 1 tablet by mouth daily LISINOPRIL 20 MG TABS 134543 LISINOPRIL Inactive MOBIC 15 MG TABS 1 tab daily MOBIC 15 MG TABS 379990 MELOXICAM Inactive NEXIUM 40 MG CPDR 1 cap daily NEXIUM 40 MG CPDR 581892 ESOMEPRAZOLE MAGNESIUM Inactive CELEBREX 200 MG CAPS 1 tablet by mouth twice daily with meals CELEBREX 200 MG CAPS 055857 CELECOXIB Inactive FLEXERIL 10 MG TAB 1 tablet by mouth 3 times daily as needed FLEXERIL 10 MG TAB CYCLOBENZAPRINE HCL Inactive PROAIR HFA 108 (90 BASE) MCG/ACT AERS 2 puffs every four hours as needed PROAIR HFA 108 (90 BASE) MCG/ACT AERS ALBUTEROL SULFATE Inactive FLONASE 50 MCG/ACT SUSP 2 SPRAY EACH NARE DAILY FLONASE 50 MCG/ACT SUSP 444798 FLUTICASONE PROPIONATE Inactive CIALIS 10 MG TABS 1 every 72 hours as needed CIALIS 10 MG TABS TADALAFIL Inactive MORPHINE SULFATE ER 100 MG CR-TABS Take one (1) tablet by mouth twice a day MORPHINE SULFATE ER 100 MG CR-TABS MORPHINE SULFATE Inactive AMOXICILLIN 500 MG CAPS Take one (1) tablet by mouth three times a day 05/05 AMOXICILLIN 500 MG CAPS 949683 AMOXICILLIN Inactive ZIAC 2.5-6.25 MG TAB 1 tablet every morning for high blood pressure ZIAC 2.5-6.25 MG TAB 095046 BISOPROLOL-HCTZ Inactive ZIAC 2.5-6.25 MG TAB 1 tablet daily for high blood pressure 10/27 ZIAC 2.5-6.25 MG TAB 354653 BISOPROLOL-HCTZ Inactive HYDROXYZINE HCL 25 MG TABS Take one (1) tablet by mouth twice a day HYDROXYZINE HCL 25 MG TABS 414205 HYDROXYZINE HCL Inactive ANUSOL-HC 25 MG SUPPOSITORY 1 rectally every 12 hours for irritation ANUSOL-HC 25 MG SUPPOSITORY 2438735 HYDROCORTISONE NAEL (RECTAL ) Inactive HYDROXYZINE HCL 25 MG TAB 1 two times a day as needed for anxiety HYDROXYZINE HCL 25 MG TAB 592500 HYDROXYZINE HCL Inactive FLOMAX 0.4 MG CAPS 1 capsule in the evening for night time urination. FLOMAX 0.4 MG CAPS 531787 TAMSULOSIN HCL Inactive CLEMASTINE FUMARATE 1.34 MG ORAL TABS 1 tab PO BID CLEMASTINE FUMARATE 1.34 MG ORAL TABS 783580 CLEMASTINE FUMARATE Inactive MS CONTIN 100 MG [id number] 1 by mouth twice a day MS CONTIN 100 MG [id number] MORPHINE SULFATE Inactive ENDOCET 10-325 MG TABS 1 by mouth twice a day ENDOCET 10-325 MG TABS 7812014 OXYCODONE-ACETAMINOPHEN Inactive HYDROXYZINE HCL 25 MG TAB take 1 every 4-6 hours as needed 07/01 HYDROXYZINE HCL 25 MG TAB 677827 HYDROXYZINE HCL Inactive ALPRAZOLAM 2 MG TABS 1 tablet by mouth three times daily as needed ALPRAZOLAM 2 MG TABS 107866 ALPRAZOLAM Inactive NEXIUM 40 MG CPDR 1 cap by mouth daily NEXIUM 40 MG CPDR 708863 ESOMEPRAZOLE MAGNESIUM Inactive Advance Directives Directive Description [...] ... - Chemistry sodium, serum 140 mmol/L 740-995 2030/03/25 carbon dioxide, venous blood 31.3 mmol/L 21.0-32.0 potassium, serum 4.0 mmol/L 3.5-5.2 chloride, serum 101 mmol/L 98-107 blood glucose 96 mg/dL 65-110 urea nitrogen, blood 7 mg/dL 7-18 creatinine, serum 0.94 mg/dL 0.55-1.30 alanine aminotransferase (SGPT), serum 23 U/L 12-78 aspartate aminotransferase (SGOT), serum 21 U/L 15-37 calcium, serum 8.9 mg/dL 8.5-10.1 bilirubin, serum, total 0.30 mg/dL 0.00-1.00 cholesterol, serum 169 mg/dL 269-553 2925/03/25 triglyceride, serum, fasting 143 mg/dL 30-200 HDL [...] 5.0-8.5 Encounters Code Encounter Date Provider Facility CPT-[id number] Level 3 Est. Patient 11:24:24 CDT Wily Zhang [facility] CPT-08978 Level 3 Est. Patient 15:19:54 SEWING PATTERN LAYOUT TECHNICIAN Wily Zhang [facility] CPT-49864 Level 3 Est. Patient 10:04:45 CDT Wily Zhang [facility] CPT-61857 Level 3 Est. Patient 13:04:06 CDT Wily Zhang [facility] CPT-09194 Level 3 Est. Patient 12:23:04 CDT Wily Zhang [facility] CPT-37719 Level 3 Est. Patient 15:43:10 SEWING PATTERN LAYOUT TECHNICIAN Wily Gonzalez [facility] CPT-23619 Level 3 Est. Patient 16:10:54 CDT Wily Gonzalez [facility] CPT-06085 Level 3 Est. Patient 19:50:51 CDT Wily Gonzalez [facility] CPT-35834 Level 3 Est. Patient 12:02:30 SEWING PATTERN LAYOUT TECHNICIAN Wily Gonzalez [facility] CPT-62729 Level 3 Est. Patient 12:03:11 SEWING PATTERN LAYOUT TECHNICIAN Wily Gonzalez [facility] CPT-72096 Level 3 Est. Patient 12:01:41 SEWING PATTERN LAYOUT TECHNICIAN Wily Gonzalez [facility] CPT-10286 Level 3 Est. Patient 11:51:24 SEWING PATTERN LAYOUT TECHNICIAN Wily Gonzalez [facility] CPT-12599 Level 3 Est. Patient 11:58:20 SEWING PATTERN LAYOUT TECHNICIAN Wily Gonzalez [facility] CPT-24494 Level 3 Est. Patient 08:31:36 SEWING PATTERN LAYOUT TECHNICIAN Wily Gonzalez [facility] CPT-72194 Level 3 Est. Patient 21:57:36 CDT Wily Gonzalez [facility] CPT-18773 Level 3 Est. Patient 10:49:58 CDT Esvin PAULA [facility] CPT-35583 Level 3 Est. Patient 11:22:52 CDT Esvin Hudson [facility] CPT-23978 Level 3 Est. Patient 13:49:41 CDT Esvin Hudson [facility] CPT-97227 Level 3 Est. Patient 11:54:53 CDT Esvin Hudson [facility] CPT-82027 Level 3 Est. Patient 09:07:11 CDT Esvin Hudson [facility] CPT-31656 Level 3 Est. Patient 13:52:47 CDT Esvin Hudson CHAI [facility] CPT-47950 Level 3 Est. Patient 11:26:46 CDT Esvin Hudson [facility] CPT-25403 Level 3 Est. Patient 10:25:00 SEWING PATTERN LAYOUT TECHNICIAN Esvin Hudson [facility] CPT-91771 Level 3 Est. Patient 11:39:11 SEWING PATTERN LAYOUT TECHNICIAN Esvin Hudson [facility] CPT-41113 Level 3 Est. Patient 13:24:24 SEWING PATTERN LAYOUT TECHNICIAN Esvin Hudson [facility] CPT-28241 Level 3 Est. Patient 10:26:13 SEWING PATTERN LAYOUT TECHNICIAN Esvin Hudson [facility] CPT-53151 Level 3 Est. Patient 10:21:21 CDT Esvin Hudson [facility] CPT-65638 Level 3 Est. Patient 10:26:30 CDT Esvin Hudson [facility] CPT-68593 Level 3 Est. Patient 09:16:37 CDT Esvin Hudson [facility] CPT-01326 Level 3 Est. Patient 09:06:58 CDT Esvin Hudson [facility] CPT-03820 Level 3 Est. Patient 10:05:29 CDT Esvin Hudson [facility] CPT-28732 Level 3 Est. Patient 10:38:45 CDT Esvin Hudson [facility] CPT-03188 Level 3 Est. Patient 10:09:45 CDT Esvin Tristan [facility] CPT-89660 Level 3 Est. Patient 09:26:37 CDT Esvin Tristan [facility] CPT-52924 Level 3 Est. Patient 10:34:42 SEWING PATTERN LAYOUT TECHNICIAN Esvin Tristan [facility] CPT-00743 Level 3 Est. Patient 10:45:47 SEWING PATTERN LAYOUT TECHNICIAN Esvin Hudson [facility] CPT-64184 Level 3 Est. Patient 10:45:22 SEWING PATTERN LAYOUT TECHNICIAN Esvin Hudson [facility] CPT-52969 Level 3 Est. Patient 14:18:30 SEWING PATTERN LAYOUT TECHNICIAN Esvin [facility] CPT-66363 Level 3 Est. Patient 13:53:29 SEWING PATTERN LAYOUT TECHNICIAN Esvin Tristan [facility] CPT-39265 Level 3 Est. Patient 10:34:11 CDT Esvin [facility] Procedures Code Procedure Name Date Entry Date Standard Description CPT-31891 Venipuncture Draw Fee 09:26:55 CDT CPT-70137 Venipuncture Draw Fee 11:55:52 CDT CPT-48748 Spec Collection and Handling Fee 09:16:37 CDT CPT-30055 Venipuncture Draw Fee 09:16:37 CDT
--- OUTSIDE RECORDS SUMMARY | 2018-02-26 14:21 | XMS REPORT | Clinical Summary ---
Author Author Admin, E Organization [employer] Address Unknown Phone Unavailable Allergies, Adverse Reactions, [...] Inactive Wily Gonzalez DO Hemorrhoids ICD-455.6 Inactive Wiyl Gonzalez DO 05/08 Nocturia ICD-788.43 Inactive Wily Gonzalez DO U T I ICD-599.0 Inactive Wily Gonzalez DO U R I ICD-465.9 Inactive Wily Gonzalez DO Medication List Medication Instructions Start Date Stop Date Generic Name ND Status Provider Patient Instruction METOPROLOL SUCCINATE ER 25 MG ORAL TABLET EXTENDED RELEASE 24 HOUR 1 pill by mouth daily for blood pressure METOPROLOL SUCCINATE 47071327830 Active Wily Gonzalez DO Active METOPROLOL TARTRATE 25 MG ORAL TABLET 1/2 tab by mouth twice dialy for blood pressure METOPROLOL TARTRATE 63609840228 No Longer Active Wily Gonzalez DO Active PROTONIX 40 MG ORAL TABLET DELAYED RELEASE 1 po prn PANTOPRAZOLE SODIUM 18989240974 Active Wily Gonzalez DO Active TRIAMCINOLONE ACETONIDE 0.1 % EXTERNAL CREAM Apply to affected area 3 times daily for up to 2 weeks TRIAMCINOLONE ACETONIDE 33252991596 No Longer Active Wily Gonzalez DO Active CHANTIX 1 MG ORAL TABLET 1 twice a day VARENICLINE TARTRATE 56916229281 No Longer Active Wily Gonzalez DO Active RAUL-MAG 500-250 MG ORAL TABLET Take one by mouth daily CALCIUM -MAGNESIUM 26949697627 Active Wily Gonzalez DO Active FOSAMAX 70 MG ORAL TABLET 1 po qweek. Take 30min prior to first food/drink. Avoid lying down x 1 hour. ALENDRONATE SODIUM 81194098174 Active Laurie Latham LPN Active CALCIUM 600 MG ORAL TABLET 1 po q day CALCIUM 12159705757 Active Rose Turcios Active [id number] 167-83-8 MG ORAL TABLET 1 tab po daily ANMNAIC-SEHFFQLTP-AMQX 09406002673 No Longer Active Wily Gonzalez DO Active NYSTATIN 864400 UNIT/GM EXTERNAL CREAM apply to rash TID PRN 2015 NYSTATIN 55859606846 No Longer Active Wily Gonzalez DO Active POLY-IRON 150 150 MG ORAL CAPSULE 1 tab po bid POLYSACCHARIDE IRON COMPLEX 96677937070 No Longer Active Wily Gonzalez DO Active FLONASE ALLERGY RELIEF 50 MCG/ACT NASAL SUSPENSION 2 sprays each nostril every day FLUTICASONE PROPIONATE 59170792319 Active Rose Turcios Active CLEMASTINE FUMARATE 1.34 MG ORAL TABLET 1 tab PO BID CLEMASTINE FUMARATE 60984382675 No Longer Active Wily Gonzalez DO Active FLOMAX 0.4 MG ORAL CAPSULE 1 capsule in the evening for night time urination. TAMSULOSIN HCL 31502862013 No Longer Active Wily Gonzalez DO Active HYDROXYZINE HCL 25 MG ORAL TABLET 1 two times a day as needed for anxiety HYDROXYZINE HCL 28420783867 No Longer Active Wily Gonzalez DO Active ANUSOL-HC 25 MG RECTAL SUPPOSITORY 1 rectally every 12 hours for irritation HYDROCORTISONE NAEL (RECTAL) 49871990108 No Longer Active Wily Gonzalez DO Active HYDROXYZINE HCL 25 MG ORAL TABLET Take one (1) tablet by mouth twice a day HYDROXYZINE HCL 55084614747 No Longer Active Wily Gonzalez DO Active ZIAC 2.5-6.25 MG ORAL TABLET 1 tablet daily for high blood pressure BISOPROLOL-HCTZ 14482137700 No Longer Active Wily Gonzalez DO Active ZIAC 2.5-6.25 MG ORAL TABLET 1 tablet every morning for high blood pressure BISOPROLOL-HCTZ 58641014062 No Longer Active Wily Gonzalez DO Active AMOXICILLIN 500 MG ORAL CAPSULE Take one (1) tablet by mouth three times a day AMOXICILLIN 61018623378 No Longer Active Wily Gonzalez DO Active MORPHINE SULFATE ER 100 MG ORAL TABLET EXTENDED RELEASE Take one (1) tablet by mouth twice a day MORPHINE SULFATE 46037043737 No Longer Active Wily Gonzalez DO Active MORPHINE SULFATE ER 100 MG ORAL CAPSULE EXTENDED RELEASE 24 HOUR 1 capsule twice daily for chronic pain MORPHINE SULFATE 29655711581 Active Wily Gonzalez DO Active CIALIS 10 MG ORAL TABLET 1 every 72 hours as needed TADALAFIL 87773796132 No Longer Active Esvin PAULA Active FLONASE 50 MCG/ACT NASAL SUSPENSION 2 SPRAY EACH NARE DAILY 05/08 FLUTICASONE PROPIONATE 42193322274 No Longer Active Esvin PAULA Active CYCLOBENZAPRINE HCL 10 MG ORAL TABLET Take one (1) tablet by mouth three times a day CYCLOBENZAPRINE HCL 20490624136 Active Rose Jimenezley Active OPANA ER 40 MG ORAL TABLET ER 12 HOUR ABUSE-DETERRENT Take one (1) tablet by mouth twice a day OXYMORPHONE HCL 14340273648 No Longer Active Esvin PAULA Active PROAIR HFA 108 (90 Base) MCG/ACT INHALATION AEROSOL SOLUTION 2 puffs every four hours as needed ALBUTEROL SULFATE 51776996186 No Longer Active Esvin PAULA Active CLEARLAX ORAL POWDER 17gm q day prn constipation POLYETHYLENE GLYCOL 3350 49140787940 Active Wily Gonzalez DO Active MORPHINE SULFATE ER 100 MG ORAL CAPSULE EXTENDED RELEASE 24 HOUR Take one (1) tablet by mouth twice a day MORPHINE SULFATE 28873710125 No Longer Active Esvin PAULA Active FLEXERIL 10 MG TAB 1 tablet by mouth 3 times daily as needed CYCLOBENZAPRINE HCL 96735431799 No Longer Active Esvin PAULA Active CELEBREX 200 MG ORAL CAPSULE 1 tablet by mouth twice daily with meals 2012 CELECOXIB 78634555007 No Longer Active Esvin PAULA Active NEXIUM 40 MG ORAL CAPSULE DELAYED RELEASE 1 cap daily ESOMEPRAZOLE MAGNESIUM 53364948993 No Longer Active Esvin PAULA Active MOBIC 15 MG ORAL TABLET 1 tab daily MELOXICAM 99360465778 No Longer Active Esvin PAULA Active LISINOPRIL 20 MG ORAL TABLET Take 1 tablet by mouth daily LISINOPRIL 64147299809 No Longer Active Esvin PAULA Active DICLOFENAC SODIUM 50 MG ORAL TABLET DELAYED RELEASE 1 tablet by mouth four times daily DICLOFENAC SODIUM 11963322810 No Longer Active Paula Eros RN Active VERAMYST 27.5 MCG/SPRAY NASAL SUSPENSION 2 spray each nare daily FLUTICASONE FUROATE 41258868360 No Longer Active Megan Vargas RN Active ENDOCET 10-325 MG ORAL TABLET Take one (1) tablet by mouth three times a day OXYCODONE-ACETAMINOPHEN 01413870503 Active Wily Gonzalez DO Active ALPRAZOLAM 2 MG ORAL TABLET Take one (1) tablet by mouth three times a day ALPRAZOLAM 98976728127 Active Wily Gonzalez DO Active NEXIUM 40 MG ORAL CAPSULE DELAYED RELEASE 1 cap by mouth daily ESOMEPRAZOLE MAGNESIUM 46927403734 No Longer Active Esvin PAULA Active ALPRAZOLAM 2 MG ORAL TABLET 1 tablet by mouth three times daily as needed ALPRAZOLAM 76065448138 No Longer Active Esvin PAULA Active HYDROXYZINE HCL 25 MG ORAL TABLET take 1 every 4-6 hours as needed HYDROXYZINE HCL 02007189940 No Longer Active Esvin PAULA Active ENDOCET 10-325 MG ORAL TABLET 1 by mouth twice a day OXYCODONE-ACETAMINOPHEN 68182234078 No Longer Active Esvin PAULA Active MS CONTIN 100 MG ORAL TABLET EXTENDED RELEASE 1 by mouth twice a day MORPHINE SULFATE 87474291972 No Longer Active Esvin PAULA Active SUDAFED 30 MG ORAL TABLET 1-2 every 4-6 hours as needed PSEUDOEPHEDRINE HCL 40229367527 Active Wily Gonzalez DO Active VERAMYST 27.5 MCG/SPRAY NASAL SUSPENSION 2 spray each nare daily VERAMYST 27.5 MCG/SPRAY NASAL SUSPENSION FLUTICASONE FUROATE Inactive DICLOFENAC SODIUM 50 MG ORAL TABLET DELAYED RELEASE 1 tablet by mouth four times daily DICLOFENAC SODIUM 50 MG ORAL TABLET DELAYED RELEASE 193203 DICLOFENAC SODIUM Inactive LISINOPRIL 20 MG ORAL TABLET Take 1 tablet by mouth daily LISINOPRIL 20 MG ORAL TABLET 351974 LISINOPRIL Inactive MOBIC 15 MG ORAL TABLET 1 tab daily MOBIC 15 MG ORAL TABLET 382553 MELOXICAM Inactive NEXIUM 40 MG ORAL CAPSULE DELAYED RELEASE 1 cap daily NEXIUM 40 MG ORAL CAPSULE DELAYED RELEASE 399590 ESOMEPRAZOLE MAGNESIUM Inactive CELEBREX 200 MG ORAL CAPSULE 1 tablet by mouth twice daily with meals 2012 CELEBREX 200 MG ORAL CAPSULE 564404 CELECOXIB Inactive FLEXERIL 10 MG TAB 1 [...] DAILY 05/08 FLONASE 50 MCG/ACT NASAL SUSPENSION 7591312 FLUTICASONE PROPIONATE Inactive CIALIS 10 MG ORAL [...] a day AMOXICILLIN 500 MG ORAL CAPSULE 242032 AMOXICILLIN Inactive ZIAC 2.5-6.25 MG ORAL TABLET 1 tablet every morning for high blood pressure ZIAC 2.5-6.25 MG ORAL TABLET 836714 BISOPROLOL-HCTZ Inactive ZIAC 2.5-6.25 MG ORAL TABLET 1 tablet daily for high blood pressure ZIAC 2.5-6.25 MG ORAL TABLET 969570 BISOPROLOL-HCTZ Inactive HYDROXYZINE HCL 25 MG ORAL TABLET Take one (1) tablet by mouth twice a day HYDROXYZINE HCL 25 MG ORAL TABLET 503800 HYDROXYZINE HCL Inactive ANUSOL-HC 25 MG RECTAL SUPPOSITORY 1 rectally every 12 hours for irritation ANUSOL-HC 25 MG RECTAL SUPPOSITORY 2816800 HYDROCORTISONE NAEL (RECTAL) Inactive HYDROXYZINE HCL 25 MG ORAL TABLET 1 two times a day as needed for anxiety HYDROXYZINE HCL 25 MG ORAL TABLET 158261 HYDROXYZINE HCL Inactive FLOMAX 0.4 MG ORAL CAPSULE 1 capsule in the evening for night time urination. FLOMAX 0.4 MG ORAL CAPSULE 854532 TAMSULOSIN HCL Inactive CLEMASTINE FUMARATE 1.34 MG ORAL TABLET 1 tab PO BID CLEMASTINE FUMARATE 1.34 MG ORAL TABLET 203959 CLEMASTINE FUMARATE Inactive POLY-IRON 150 150 MG ORAL CAPSULE 1 tab po bid POLY-IRON 150 150 MG ORAL CAPSULE POLYSACCHARIDE IRON COMPLEX Inactive NYSTATIN 961571 UNIT/GM EXTERNAL CREAM apply to rash TID PRN 2015 NYSTATIN 948699 UNIT/GM EXTERNAL CREAM 026182 NYSTATIN Inactive [id number]-HCOG 167-83-8 MG ORAL TABLET 1 tab po daily [id number] 167-83-8 MG ORAL TABLET CALCIUM-MAGNESIUM -ZINC Inactive CHANTIX 1 MG ORAL TABLET 1 twice a day CHANTIX 1 MG ORAL TABLET VARENICLINE TARTRATE Inactive TRIAMCINOLONE ACETONIDE 0.1 % EXTERNAL CREAM Apply to affected area 3 times daily for up to 2 weeks TRIAMCINOLONE ACETONIDE 0.1 % EXTERNAL CREAM 3073407 TRIAMCINOLONE ACETONIDE Inactive METOPROLOL TARTRATE 25 MG ORAL TABLET 1/2 tab by mouth twice dialy for blood pressure METOPROLOL TARTRATE 25 MG ORAL TABLET 207444 METOPROLOL TARTRATE Inactive MS CONTIN 100 MG ORAL TABLET EXTENDED RELEASE 1 by mouth twice a day MS CONTIN 100 MG ORAL TABLET EXTENDED RELEASE MORPHINE SULFATE Inactive ENDOCET 10-325 MG ORAL TABLET 1 by mouth twice a day ENDOCET 10-325 MG ORAL TABLET 4777376 OXYCODONE-ACETAMINOPHEN Inactive HYDROXYZINE HCL 25 MG ORAL TABLET take 1 every 4-6 hours as needed HYDROXYZINE HCL 25 MG ORAL TABLET 987622 HYDROXYZINE HCL Inactive ALPRAZOLAM 2 MG ORAL TABLET 1 tablet by mouth three times daily as needed ALPRAZOLAM 2 MG ORAL TABLET 257002 ALPRAZOLAM Inactive NEXIUM 40 MG ORAL CAPSULE DELAYED RELEASE 1 cap by mouth daily NEXIUM 40 MG ORAL CAPSULE DELAYED RELEASE 329383 ESOMEPRAZOLE MAGNESIUM Inactive Advance Directives Directive Description [...] Ag - Chemistry sodium, serum 141 mmol/L 793-583 8364/05/03 carbon dioxide, venous blood 35.9 mmol/L 21.0-32.0 potassium, serum 4.2 mmol/L 3.5-5.2 chloride, serum 105 mmol/L 98-107 blood glucose 77 mg/dL 65-95 urea nitrogen, blood 12 mg/dL 7-18 creatinine, serum 0.90 mg/dL 0.60-1.30 alanine aminotransferase (SGPT), serum 19 U/L 12-78 aspartate aminotransferase (SGOT), serum 14 U/L 15-37 calcium, serum 9.1 mg/dL 8.5-10.1 bilirubin, serum, total 0.20 mg/dL 0.00-1.00 cholesterol, serum 178 mg/dL 874-931 3449/05/03 triglyceride, serum, fasting 96 mg/dL 30-200 HDL cholesterol, serum 78 mg/dL 32-60 LDL cholesterol, serum 81 mg/dL 0-130 prostate specific antigen 0.04 ng/mL 0.00-4.00 Encounters Code Encounter Date Provider Facility CPT-43189 Level 4 Est. Patient 14:48:04 CDT Wily Gonzalez [facility] CPT-87260 Level 4 Est. Patient 16:18:01 CDT Wily Gonzalez [facility] CPT-16821 Level 4 Est. Patient 16:17:36 CDT Wily Zhang [facility] CPT-20146 Level 4 Est. Patient 12:51:46 CDT Wily Zhang [facility] CPT-21061 Level 4 Est. Patient 10:10:03 CDT Wily Zhang [facility] CPT-88848 Level 3 Est. Patient 14:25:57 CDT Wily Zhang [facility] CPT-28241 Level 3 Est. Patient 09:51:37 SCREEN MAKING SUPERVISOR Wily Gonzalez [facility] CPT-74147 Level 3 Est. Patient 11:07:48 CDT Wily Zhang [facility] CPT-38073 Level 3 Est. Patient 11:24:24 CDT Wily Zhang [facility] CPT-76896 Level 3 Est. Patient 15:19:54 SCREEN MAKING SUPERVISOR Wily Zhang [facility] CPT-20029 Level 3 Est. Patient 10:04:45 CDT Wily Gonzalez [facility] CPT-45013 Level 3 Est. Patient 13:04:06 CDT Wily Zhang [facility] CPT-47722 Level 3 Est. Patient 12:23:04 CDT Wily Zhang [facility] CPT-17591 Level 3 Est. Patient 15:43:10 SCREEN MAKING SUPERVISOR Wily Zhang [facility] CPT-70867 Level 3 Est. Patient 16:10:54 CDT Wily Vicente [facility] CPT-42432 Level 3 Est. Patient 19:50:51 CDT Wily Zhang [facility] CPT-95105 Level 3 Est. Patient 12:02:30 SCREEN MAKING SUPERVISOR Wily Gonzalez [facility] CPT-29471 Level 3 Est. Patient 12:03:11 SCREEN MAKING SUPERVISOR Wily Gonzalez [facility] CPT-81611 Level 3 Est. Patient 12:01:41 SCREEN MAKING SUPERVISOR Wily Gonzalez [facility] CPT-13024 Level 3 Est. Patient 11:51:24 SCREEN MAKING SUPERVISOR Wily Gonzalez [facility] CPT-67055 Level 3 Est. Patient 11:58:20 SCREEN MAKING SUPERVISOR Wily Gonzalez [facility] CPT-92168 Level 3 Est. Patient 08:31:36 SCREEN MAKING SUPERVISOR Wily Gonzalez [facility] CPT-04416 Level 3 Est. Patient 21:57:36 CDT Wily Gonzalez [facility] CPT-29369 Level 3 Est. Patient 10:49:58 CDT Esvin PAULA [facility] CPT-32901 Level 3 Est. Patient 11:22:52 CDT Esvin PAULA [facility] CPT-06498 Level 3 Est. Patient 13:49:41 CDT Esvin PAULA [facility] CPT-51021 Level 3 Est. Patient 11:54:53 CDT Esvin PAULA [facility] CPT-67306 Level 3 Est. Patient 09:07:11 CDT Esvin PAULA [facility] CPT-54230 Level 3 Est. Patient 13:52:47 CDT Esvin PAULA [facility] CPT-81698 Level 3 Est. Patient 11:26:46 CDT Esvin PAULA [facility] CPT-76746 Level 3 Est. Patient 10:25:00 SCREEN MAKING SUPERVISOR Esvin PAULA [facility] CPT-81285 Level 3 Est. Patient 11:39:11 SCREEN MAKING SUPERVISOR Esvin PAULA [facility] CPT-74907 Level 3 Est. Patient 13:24:24 SCREEN MAKING SUPERVISOR Esvin PAULA [facility] CPT-40486 Level 3 Est. Patient 10:26:13 SCREEN MAKING SUPERVISOR Esvin PAULA [facility] CPT-51062 Level 3 Est. Patient 10:21:21 CDT Esvin PAULA [facility] CPT-94692 Level 3 Est. Patient 10:26:30 CDT Esvin PAULA [facility] CPT-47831 Level 3 Est. Patient 09:16:37 CDT Esvin PAULA [facility]-57114 Level 3 Est. Patient 09:06:58 CDT Esvin PAULA [facility] CPT-24052 Level 3 Est. Patient 10:05:29 CDT Esvin PAULA [facility] CPT-80471 Level 3 Est. Patient 10:38:45 CDT Esvin PAULA [facility] CPT-62446 Level 3 Est. Patient 10:09:45 CDT Esvin PAULA [facility] CPT-49373 Level 3 Est. Patient 09:26:37 CDT Esvin PAULA [facility] CPT-99884 Level 3 Est. Patient 10:34:42 SCREEN MAKING SUPERVISOR Esvin PAULA [facility] CPT-99230 Level 3 Est. Patient 10:45:47 SCREEN MAKING SUPERVISOR Esvin PAULA [facility] CPT-62286 Level 3 Est. Patient 10:45:22 SCREEN MAKING SUPERVISOR Esvin PAULA [facility] CPT-08731 Level 3 Est. Patient 14:18:30 SCREEN MAKING SUPERVISOR Esvin PAULA [facility] CPT-44261 Level 3 Est. Patient 13:53:29 SCREEN MAKING SUPERVISOR Esvin Ada [facility] CPT-29725 Level 3 Est. Patient 10:34:11 CDT Esvin Ada [facility] Procedures Code Procedure Name Date Entry Date Standard Description CPT-G0439 Subsequent Annual Wellness Exam 12:28:53 CDT CPT-31527 Smoking Cessation counseling 10:10:03 CDT CPT-02397 Smoking Cessation counseling 14:25:57 CDT CPT-26543 Bone Density - XRAY USE ONLY 11:29:32 CDT CPT-14166 LS spine AP and Lat - XRAY USE ONLY 10:07:43 SCREEN MAKING SUPERVISOR 10/26 CPT-41114 Venipuncture Draw Fee 09:51:16 SCREEN MAKING SUPERVISOR CPT-11066 Smoking Cessation counseling 09:39:47 SCREEN MAKING SUPERVISOR CPT-G0438 Initial Annual Wellness Exam 09:37:28 SCREEN MAKING SUPERVISOR CPT-26965 Venipuncture Draw Fee 09:26:55 CDT CPT-47230 Venipuncture Draw Fee 11:55:52 CDT CPT-73912 Spec Collection and Handling Fee 09:16:37 CDT CPT-17888 Venipuncture Draw Fee 09:16:37 CDT
--- OUTSIDE RECORDS SUMMARY | 2018-02-26 14:22 | XMS REPORT | Clinical Summary ---
Author Author Admin, E Organization [facility] Address Unknown Phone Unavailable Allergies, Adverse Reactions, [...] Osteoporosis 733.00 Active Rose Bang Osteoporosis, unspecified HYPERTENSION ICD-401.9 Inactive Wily Gonzalez DO ANKLE [...] Instructions Start Date Stop Date Generic Name [facility] Status Provider Patient Instruction CHANTIX 1 MG TABS 1 twice a day VARENICLINE TARTRATE 61988754513 No Longer Active Wily Gonzalez DO Active RAUL-MAG 500-250 MG ORAL TABS Take one by mouth daily CALCIUM- MAGNESIUM 38231596169 Active Wily Gonzalez DO Active FOSAMAX 70 MG TABS 1 po qweek. Take 30min prior to first food/drink. Avoid lying down x 1 hour. ALENDRONATE SODIUM 55001466155 Active Rose Bang Active CALCIUM 600 MG ORAL TABS 1 po q day CALCIUM 08133935791 Active Rose Bang Active TRIAMCINOLONE ACETONIDE 0.1 % CREA Apply to affected area 3 times daily for up to 2 weeks TRIAMCINOLONE ACETONIDE 78624904589 Active Wily Gonzalez DO Active [id number] 167-83-8 MG TABS 1 tab po daily [id number] 07722757488 No Longer Active Wily Gonzalez DO Active NYSTATIN 470926 UNIT/GM CREA apply to rash TID PRN NYSTATIN 54129839310 No Longer Active Wily Gonzalez DO Active POLY-IRON 150 150 MG CAPS 1 tab po bid POLYSACCHARIDE IRON COMPLEX 20917241021 No Longer Active Wily Gonzalez DO Active FLONASE ALLERGY RELIEF 50 MCG/ACT NASAL SUSP 2 sprays each nostril every day FLUTICASONE PROPIONATE 51290987419 Active Rose Bang Active CLEMASTINE FUMARATE 1.34 MG ORAL TABS 1 tab PO BID CLEMASTINE FUMARATE 81429844503 No Longer Active Wily Gonzalez DO Active FLOMAX 0.4 MG CAPS 1 capsule in the evening for night time urination. TAMSULOSIN HCL 23832142823 No Longer Active Wily Gonzalez DO Active PROTONIX 40 MG TBEC 1 po daily PANTOPRAZOLE SODIUM 36539138528 Active Agnieszka Yeung Active HYDROXYZINE HCL 25 MG TAB 1 two times a day as needed for anxiety HYDROXYZINE HCL 69013389241 No Longer Active Wily Gonzalez DO Active ANUSOL-HC 25 MG SUPPOSITORY 1 rectally every 12 hours for irritation HYDROCORTISONE NAEL (RECTAL) 22065548084 No Longer Active Wily Gonzalez DO Active HYDROXYZINE HCL 25 MG TABS Take one (1) tablet by mouth twice a day HYDROXYZINE HCL 42710658534 No Longer Active Wily Gonzalez DO Active ZIAC 2.5-6.25 MG TAB 1 tablet daily for high blood pressure 10/27 BISOPROLOL-HCTZ 55365587300 No Longer Active Wily Gonzalez DO Active ZIAC 2.5-6.25 MG TAB 1 tablet every morning for high blood pressure BISOPROLOL-HCTZ 97373148572 No Longer Active Wily Gonzalez DO Active AMOXICILLIN 500 MG CAPS Take one (1) tablet by mouth three times a day 05/05 AMOXICILLIN 18628297267 No Longer Active Wily Gonzalez DO Active MORPHINE SULFATE ER 100 MG CR-TABS Take one (1) tablet by mouth twice a day MORPHINE SULFATE 78221284498 No Longer Active Wily Gonzalez DO Active MORPHINE SULFATE ER 100 MG [id number] 1 capsule twice daily for chronic pain MORPHINE SULFATE 55112401091 Active Rose Bang Active CIALIS 10 MG TABS 1 every 72 hours as needed TADALAFIL 57758652420 No Longer Active Esvin PAULA Active FLONASE 50 MCG/ACT SUSP 2 SPRAY EACH NARE DAILY FLUTICASONE PROPIONATE 67915583690 No Longer Active Esvin PAULA Active CYCLOBENZAPRINE HCL 10 MG TABS Take one (1) tablet by mouth three times a day CYCLOBENZAPRINE HCL 72170877145 Active Lisa Berkowitz Active OPANA ER (CRUSH RESISTANT) 40 MG [id number] Take one (1) tablet by mouth twice a day OXYMORPHONE HCL 59166083292 No Longer Active Esvin PAULA Active PROAIR HFA 108 (90 BASE) MCG/ACT AERS 2 puffs every four hours as needed ALBUTEROL SULFATE 25904049346 No Longer Active Esvin PAULA Active CLEARLAX POWD 17gm q day prn constipation POLYETHYLENE GLYCOL 3350 55672410158 Active Wily Gonzalez DO Active MORPHINE SULFATE ER 100 MG [id number]-CHS Take one (1) tablet by mouth twice a day MORPHINE SULFATE 19405699530 No Longer Active Esvin PAULA Active FLEXERIL 10 MG TAB 1 tablet by mouth 3 times daily as needed CYCLOBENZAPRINE HCL 84141577197 No Longer Active Esvin PAULA Active CELEBREX 200 MG CAPS 1 tablet by mouth twice daily with meals CELECOXIB 82035064127 No Longer Active Esvin PAULA Active NEXIUM 40 MG CPDR 1 cap daily ESOMEPRAZOLE MAGNESIUM 38595888401 No Longer Active Esvin PAULA Active MOBIC 15 MG TABS 1 tab daily MELOXICAM 34872831928 No Longer Active Esvin PAULA Active LISINOPRIL 20 MG TABS Take 1 tablet by mouth daily LISINOPRIL 60442796690 No Longer Active Esvin PAULA Active DICLOFENAC SODIUM 50 MG TBEC 1 tablet by mouth four times daily DICLOFENAC SODIUM 45567865450 No Longer Active Paula Cooney RN Active VERAMYST 27.5 MCG/SPRAY SUSP 2 spray each nare daily FLUTICASONE FUROATE 08584915131 No Longer Active Megan Vargas RN Active ENDOCET 10-325 MG TABS Take one (1) tablet by mouth three times a day OXYCODONE-ACETAMINOPHEN 89382396844 Active Rose Bang Active ALPRAZOLAM 2 MG TABS Take one (1) tablet by mouth three times a day ALPRAZOLAM 10664498054 Active Rose Bang Active NEXIUM 40 MG CPDR 1 cap by mouth daily ESOMEPRAZOLE MAGNESIUM 68476274731 No Longer Active Esvin PAULA Active ALPRAZOLAM 2 MG TABS 1 tablet by mouth three times daily as needed ALPRAZOLAM 28923481879 No Longer Active Esvin PAULA Active HYDROXYZINE HCL 25 MG TAB take 1 every 4-6 hours as needed 07/01 HYDROXYZINE HCL 93414462519 No Longer Active Esvin PAULA Active ENDOCET 10-325 MG TABS 1 by mouth twice a day OXYCODONE-ACETAMINOPHEN 08363664846 No Longer Active Esvin PAULA Active MS CONTIN 100 MG [id number] 1 by mouth twice a day MORPHINE SULFATE 87580911689 No Longer Active Esvin PAULA Active SUDAFED 30 MG TAB 1-2 every 4-6 hours as needed PSEUDOEPHEDRINE HCL 81061886347 Active Rose Bang Active VERAMYST 27.5 MCG/SPRAY SUSP 2 spray each nare daily VERAMYST 27.5 MCG/SPRAY SUSP FLUTICASONE FUROATE Inactive DICLOFENAC SODIUM 50 MG TBEC 1 tablet by mouth four times daily DICLOFENAC SODIUM 50 MG TBEC 204365 DICLOFENAC SODIUM Inactive LISINOPRIL 20 MG TABS Take 1 tablet by mouth daily LISINOPRIL 20 MG TABS 303185 LISINOPRIL Inactive MOBIC 15 MG TABS 1 tab daily MOBIC 15 MG TABS 472709 MELOXICAM Inactive NEXIUM 40 MG CPDR 1 cap daily NEXIUM 40 MG CPDR 618657 ESOMEPRAZOLE MAGNESIUM Inactive CELEBREX 200 MG CAPS 1 tablet by mouth twice daily with meals CELEBREX 200 MG CAPS 739853 CELECOXIB Inactive FLEXERIL 10 MG TAB 1 tablet by mouth 3 times daily as needed FLEXERIL 10 MG TAB CYCLOBENZAPRINE HCL Inactive PROAIR HFA 108 (90 BASE) MCG/ACT AERS 2 puffs every four hours as needed PROAIR HFA 108 (90 BASE) MCG/ACT AERS ALBUTEROL SULFATE Inactive FLONASE 50 MCG/ACT SUSP 2 SPRAY EACH NARE DAILY FLONASE 50 MCG/ACT SUSP 7267855 FLUTICASONE PROPIONATE Inactive CIALIS 10 MG TABS 1 every 72 hours as needed CIALIS 10 MG TABS TADALAFIL Inactive MORPHINE SULFATE ER 100 MG CR-TABS Take one (1) tablet by mouth twice a day MORPHINE SULFATE ER 100 MG CR-TABS MORPHINE SULFATE Inactive AMOXICILLIN 500 MG CAPS Take one (1) tablet by mouth three times a day 05/05 AMOXICILLIN 500 MG CAPS 388719 AMOXICILLIN Inactive ZIAC 2.5-6.25 MG TAB 1 tablet every morning for high blood pressure ZIAC 2.5-6.25 MG TAB 594510 BISOPROLOL-HCTZ Inactive ZIAC 2.5-6.25 MG TAB 1 tablet daily for high blood pressure 10/27 ZIAC 2.5-6.25 MG TAB 617202 BISOPROLOL-HCTZ Inactive HYDROXYZINE HCL 25 MG TABS Take one (1) tablet by mouth twice a day HYDROXYZINE HCL 25 MG TABS 790231 HYDROXYZINE HCL Inactive ANUSOL-HC 25 MG SUPPOSITORY 1 rectally every 12 hours for irritation ANUSOL-HC 25 MG SUPPOSITORY 9669350 HYDROCORTISONE NAEL (RECTAL ) Inactive HYDROXYZINE HCL 25 MG TAB 1 two times a day as needed for anxiety HYDROXYZINE HCL 25 MG TAB 838959 HYDROXYZINE HCL Inactive FLOMAX 0.4 MG CAPS 1 capsule in the evening for night time urination. FLOMAX 0.4 MG CAPS 272695 TAMSULOSIN HCL Inactive CLEMASTINE FUMARATE 1.34 MG ORAL TABS 1 tab PO BID CLEMASTINE FUMARATE 1.34 MG ORAL TABS 210738 CLEMASTINE FUMARATE Inactive POLY-IRON 150 150 MG CAPS 1 tab po bid POLY-IRON 150 150 MG CAPS 583858 POLYSACCHARIDE IRON COMPLEX Inactive NYSTATIN 943553 UNIT/GM CREA apply to rash TID PRN NYSTATIN 205881 UNIT/GM CREA 423816 NYSTATIN Inactive [id number]-VIYR 167-83-8 MG TABS 1 tab po daily [id number]-AGPO 167-83-8 MG TABS 63731874520 CALCIUM-MAGNESIUM- ZINC Inactive CHANTIX 1 MG TABS 1 twice a day CHANTIX 1 MG TABS VARENICLINE TARTRATE Inactive MS CONTIN 100 MG [id number] 1 by mouth twice a day MS CONTIN 100 MG [id number] MORPHINE SULFATE Inactive ENDOCET 10-325 MG TABS 1 by mouth twice a day ENDOCET 10-325 MG TABS 7311711 OXYCODONE-ACETAMINOPHEN Inactive HYDROXYZINE HCL 25 MG TAB take 1 every 4-6 hours as needed 07/01 HYDROXYZINE HCL 25 MG TAB 671333 HYDROXYZINE HCL Inactive ALPRAZOLAM 2 MG TABS 1 tablet by mouth three times daily as needed ALPRAZOLAM 2 MG TABS 987141 ALPRAZOLAM Inactive NEXIUM 40 MG CPDR 1 cap by mouth daily NEXIUM 40 MG CPDR 482493 ESOMEPRAZOLE MAGNESIUM Inactive Advance Directives Directive Description Start Date PERMISSION TO SHARE Vital Signs Date Name Value Unit Range Description blood pressure, diastolic 98 mm[Hg] BP stoddard [...] Measured Encounters Code Encounter Date Provider Facility CPT-33074 Level 4 Est. Patient 10:10:03 CDT Wily Gonzalez [facility] CPT-31835 Level 3 Est. Patient 14:25:57 CDT Wily Zhang [facility] CPT-41993 Level 3 Est. Patient 09:51:37 [employer] Wily Gonzalez [facility] CPT-65499 Level 3 Est. Patient 11:07:48 CDT Wily Zhang [facility] CPT-39312 Level 3 Est. Patient 11:24:24 CDT Wily Zhang [facility] CPT-08723 Level 3 Est. Patient 15:19:54 [employer] Wily Gonzalez [facility] CPT-20203 Level 3 Est. Patient 10:04:45 CDT Wiyl Gonzalez [facility] CPT-19811 Level 3 Est. Patient 13:04:06 CDT Wily Gonzalez [facility] CPT-64431 Level 3 Est. Patient 12:23:04 CDT Wily Zhang [facility] CPT-23252 Level 3 Est. Patient 15:43:10 [employer] Wily Gonzalez [facility] CPT-41878 Level 3 Est. Patient 16:10:54 CDT Wily Zhang [facility] CPT-80885 Level 3 Est. Patient 19:50:51 CDT Wily W Carlos [facility] CPT-43776 Level 3 Est. Patient 12:02:30 [employer] Wily Gonzalez [facility] CPT-84408 Level 3 Est. Patient 12:03:11 [employer] WR[employer]PER Wily Gonzalez [facility] CPT-73053 Level 3 Est. Patient 12:01:41 [employer] WR[employer]PER Wily Gonzalez [facility] CPT-21420 Level 3 Est. Patient 11:51:24 [employer] WR[employer]PER Wily Gonzalez [facility] CPT-79963 Level 3 Est. Patient 11:58:20 [employer] WR[employer]PER Wily Gonzalez [facility] CPT-95309 Level 3 Est. Patient 08:31:36 [employer]PER Wily Gonzalez [facility] CPT-87698 Level 3 Est. Patient 21:57:36 CDT Wily Gonzalez [facility] CPT-14594 Level 3 Est. Patient 10:49:58 CDT Esvin PAULA [facility] CPT-33165 Level 3 Est. Patient 11:22:52 CDT Esvin PAULA [facility] CPT-46429 Level 3 Est. Patient 13:49:41 CDT Esvin PAULA [facility] CPT-80516 Level 3 Est. Patient 11:54:53 CDT Esvin PAULA [facility] CPT-88546 Level 3 Est. Patient 09:07:[address] [facility] CPT-46530 Level 3 Est. Patient 13:52:47 CDT Esvin PAULA [facility] CPT-10174 Level 3 Est. Patient 11:26:46 CDT Esvin PAULA [facility] CPT-58466 Level 3 Est. Patient 10:25:00 [employer]PER Esvin PAULA [facility] CPT-80484 Level 3 Est. Patient 11:39:11 [employer] WR[employer]PER Esvin PAULA [facility] CPT-94595 Level 3 Est. Patient 13:24:24 [employer] COUN[employer] AND WR[employer]PER Esvin PAULA [facility]-[id number] Level 3 Est. Patient 10:26:13 [employer] COUN[employer] AND WRAPPER Esvin PAULA [facility] CPT-37609 Level 3 Est. Patient 10:21:[address] [facility] CPT-40706 Level 3 Est. Patient 10:26:30 CDT Esvin PAULA [facility]-[id number] Level 3 Est. Patient 09:16:37 CDT Esvin PAULA [facility]-75827 Level 3 Est. Patient 09:06:[address] [facility] CPT-82429 Level 3 Est. Patient 10:05:[address] [facility] CPT-10029 Level 3 Est. Patient 10:38:[address] [facility] CPT-63258 Level 3 Est. Patient 10:09:[address] [facility] CPT-43856 Level 3 Est. Patient 09:26:[address] [facility] CPT-07648 Level 3 Est. Patient 10:34:42 [employer] Esvin PAULA [facility] CPT-52474 Level 3 Est. Patient 10:45:47 [employer] WR[employer]PER Esvin PAULA [facility]-[id number] Level 3 Est. Patient 10:45:22 [employer] COUN[employer] AND WRAPPER Esvin PAULA [facility] CPT-04304 Level 3 Est. Patient 14:18:30 [employer] WR[employer]PER Esvin [facility] CPT-90518 Level 3 Est. Patient 13:53:29 [employer] WR[employer]PER Esvin Tristan [facility] CPT-51217 Level 3 Est. Patient 10:34:11 CDT Esvin [facility] Procedures Code Procedure Name Date Entry Date Standard Description CPT-61846 Smoking Cessation counseling 10:10:03 CDT CPT-69137 Smoking Cessation counseling 14:25:57 CDT CPT-99550 Bone Density - XRAY USE ONLY 11:29:32 CDT CPT-80823 LS spine AP and Lat - XRAY USE ONLY 10:07:43 [employer] 10/26 CPT-69168 Venipuncture Draw Fee 09:51:16 [employer] CPT-26036 Smoking Cessation counseling 09:39:47 [employer] CPT-G0438 Initial Annual Wellness Exam 09:37:28 [employer] CPT-84212 Venipuncture Draw Fee 09:26:55 CDT CPT-81979 Venipuncture Draw Fee 11:55:52 CDT CPT-64799 Spec Collection and Handling Fee 09:16:37 CDT CPT-50082 Venipuncture Draw Fee 09:16:37 CDT
--- OUTSIDE RECORDS SUMMARY | 2018-02-26 14:23 | XMS REPORT | Clinical Summary ---
Author Author Admin, E Organization [facility] Address Unknown Phone Unavailable Allergies, Adverse [...] Generic Name NDC Status Provider Patient Instruction RAUL-MAG 500-250 MG ORAL TABS Take one by mouth daily CALCIUM- MAGNESIUM 38014290553 Active Wily Gonzalez DO Active FOSAMAX 70 MG TABS 1 po qweek. Take 30min prior to first food/drink. Avoid lying down x 1 hour. ALENDRONATE SODIUM 93075900003 Active Rose Bang Active CALCIUM 600 MG ORAL TABS 1 po q day CALCIUM 48324595784 Active Rose Bang Active CHANTIX 1 MG TABS 1 twice a day VARENICLINE TARTRATE 47040001343 Active Wily Gonzalez DO Active TRIAMCINOLONE ACETONIDE 0.1 % CREA Apply to affected area 3 times daily for up to 2 weeks TRIAMCINOLONE ACETONIDE 04339664761 Active Wily Gonzalez DO Active [id number]-[id number]-JTAN 167-83-8 MG TABS 1 tab po daily [id number]-MYGU 03470862649 No Longer Active Wily Gonzalez DO Active NYSTATIN 213717 UNIT/GM CREA apply to rash TID PRN NYSTATIN 36661672593 No Longer Active Wily Gonzalez DO Active POLY-IRON 150 150 MG CAPS 1 tab po bid POLYSACCHARIDE IRON COMPLEX 23468887742 No Longer Active Wily Gonzalez DO Active FLONASE ALLERGY RELIEF 50 MCG/ACT NASAL SUSP 2 sprays each nostril every day FLUTICASONE PROPIONATE 25560665943 Active Jodi Lucas APRN Active CLEMASTINE FUMARATE 1.34 MG ORAL TABS 1 tab PO BID CLEMASTINE FUMARATE 77125810758 No Longer Active Wily Gonzalez DO Active FLOMAX 0.4 MG CAPS 1 capsule in the evening for night time urination. TAMSULOSIN HCL 21952175755 No Longer Active Wily Gonzalez DO Active PROTONIX 40 MG TBEC 1 po daily PANTOPRAZOLE SODIUM 55262089048 Active Agnieszka Yeung Active HYDROXYZINE HCL 25 MG TAB 1 two times a day as needed for anxiety HYDROXYZINE HCL 23777463918 No Longer Active Wily Gonzalez DO Active ANUSOL-HC 25 MG SUPPOSITORY 1 rectally every 12 hours for irritation HYDROCORTISONE NAEL (RECTAL) 11160061649 No Longer Active Wily Gonzalez DO Active HYDROXYZINE HCL 25 MG TABS Take one (1) tablet by mouth twice a day HYDROXYZINE HCL 37020775891 No Longer Active Wily Gonzalez DO Active ZIAC 2.5-6.25 MG TAB 1 tablet daily for high blood pressure 10/27 BISOPROLOL-HCTZ 65627875628 No Longer Active Wily Gonzalez DO Active ZIAC 2.5-6.25 MG TAB 1 tablet every morning for high blood pressure BISOPROLOL-HCTZ 33861435482 No Longer Active Wily Gonzalez DO Active AMOXICILLIN 500 MG CAPS Take one (1) tablet by mouth three times a day 05/05 AMOXICILLIN 59257916568 No Longer Active Wily Gonzalez DO Active MORPHINE SULFATE ER 100 MG CR-TABS Take one (1) tablet by mouth twice a day MORPHINE SULFATE 73217956927 No Longer Active Wily Gonzalez DO Active MORPHINE SULFATE ER 100 MG [id number]-AQG 1 capsule twice daily for chronic pain MORPHINE SULFATE 59552642352 Active Wily Gonzalez DO Active CIALIS 10 MG TABS 1 every 72 hours as needed TADALAFIL 34372622064 No Longer Active Esvin PAULA Active FLONASE 50 MCG/ACT SUSP 2 SPRAY EACH NARE DAILY FLUTICASONE PROPIONATE 92452948217 No Longer Active Esvin PAULA Active CYCLOBENZAPRINE HCL 10 MG TABS Take one (1) tablet by mouth three times a day CYCLOBENZAPRINE HCL 56785050904 Active Lisa Berkowitz Active OPANA ER (CRUSH RESISTANT) 40 MG OO66O-HDF Take one (1) tablet by mouth twice a day OXYMORPHONE HCL 99189795148 No Longer Active Esvin PAULA Active PROAIR HFA 108 (90 BASE) MCG/ACT AERS 2 puffs every four hours as needed ALBUTEROL SULFATE 39394046406 No Longer Active Esvin PAULA Active CLEARLAX POWD 17gm q day prn constipation POLYETHYLENE GLYCOL 3350 82653382133 Active Wily Gonzalez DO Active MORPHINE SULFATE ER 100 MG [id number] Take one (1) tablet by mouth twice a day MORPHINE SULFATE 81192427863 No Longer Active Esvin PAULA Active FLEXERIL 10 MG TAB 1 tablet by mouth 3 times daily as needed CYCLOBENZAPRINE HCL 25093027584 No Longer Active Esvin PAULA Active CELEBREX 200 MG CAPS 1 tablet by mouth twice daily with meals CELECOXIB 74639725881 No Longer Active Esvin PAULA Active NEXIUM 40 MG CPDR 1 cap daily ESOMEPRAZOLE MAGNESIUM 54913245244 No Longer Active Esvin PAULA Active MOBIC 15 MG TABS 1 tab daily MELOXICAM 80555855392 No Longer Active Esvin PAULA Active LISINOPRIL 20 MG TABS Take 1 tablet by mouth daily LISINOPRIL 12297877468 No Longer Active Esvin PAULA Active DICLOFENAC SODIUM 50 MG TBEC 1 tablet by mouth four times daily DICLOFENAC SODIUM 89006643521 No Longer Active Paula Cooney RN Active VERAMYST 27.5 MCG/SPRAY SUSP 2 spray each nare daily FLUTICASONE FUROATE 05027930966 No Longer Active Megan Vargas RN Active ENDOCET 10-325 MG TABS Take one (1) tablet by mouth three times a day OXYCODONE-ACETAMINOPHEN 92716502036 Active Wily Gonzalez DO Active ALPRAZOLAM 2 MG TABS Take one (1) tablet by mouth three times a day ALPRAZOLAM 15237318346 Active Wily Gonzalez DO Active NEXIUM 40 MG CPDR 1 cap by mouth daily ESOMEPRAZOLE MAGNESIUM 52463781436 No Longer Active Esvin PAULA Active ALPRAZOLAM 2 MG TABS 1 tablet by mouth three times daily as needed ALPRAZOLAM 25026663857 No Longer Active Esvin PAULA Active HYDROXYZINE HCL 25 MG TAB take 1 every 4-6 hours as needed 07/01 HYDROXYZINE HCL 83773034134 No Longer Active Esvin PAULA Active ENDOCET 10-325 MG TABS 1 by mouth twice a day OXYCODONE-ACETAMINOPHEN 86283354696 No Longer Active Esvin PAULA Active MS CONTIN 100 MG [id number] 1 by mouth twice a day MORPHINE SULFATE 40896799176 No Longer Active Esvin PAULA Active SUDAFED 30 MG TAB 1-2 every 4-6 hours as needed PSEUDOEPHEDRINE HCL 35070662303 Active Marylou Melissa RPT,RMA Active VERAMYST 27.5 MCG/SPRAY SUSP 2 spray each nare daily VERAMYST 27.5 MCG/SPRAY SUSP FLUTICASONE FUROATE Inactive DICLOFENAC SODIUM 50 MG TBEC 1 tablet by mouth four times daily DICLOFENAC SODIUM 50 MG TBEC 155359 DICLOFENAC SODIUM Inactive LISINOPRIL 20 MG TABS Take 1 tablet by mouth daily LISINOPRIL 20 MG TABS 529074 LISINOPRIL Inactive MOBIC 15 MG TABS 1 tab daily MOBIC 15 MG TABS 813077 MELOXICAM Inactive NEXIUM 40 MG CPDR 1 cap daily NEXIUM 40 MG CPDR 235604 ESOMEPRAZOLE MAGNESIUM Inactive CELEBREX 200 MG CAPS 1 tablet by mouth twice daily with meals CELEBREX 200 MG CAPS 841979 CELECOXIB Inactive FLEXERIL 10 MG TAB 1 [...] a day 05/05 AMOXICILLIN 500 MG CAPS 471903 AMOXICILLIN Inactive ZIAC 2.5-6.25 MG TAB 1 tablet every morning for high blood pressure ZIAC 2.5-6.25 MG TAB 734096 BISOPROLOL-HCTZ Inactive ZIAC 2.5-6.25 MG TAB 1 tablet daily for high blood pressure 10/27 ZIAC 2.5-6.25 MG TAB 130517 BISOPROLOL-HCTZ Inactive HYDROXYZINE HCL 25 MG TABS Take one (1) tablet by mouth twice a day HYDROXYZINE HCL 25 MG TABS 295003 HYDROXYZINE HCL Inactive ANUSOL-HC 25 MG SUPPOSITORY 1 rectally every 12 hours for irritation ANUSOL-HC 25 MG SUPPOSITORY 0340506 HYDROCORTISONE NAEL (RECTAL ) Inactive HYDROXYZINE HCL 25 MG TAB 1 two times a day as needed for anxiety HYDROXYZINE HCL 25 MG TAB 680121 HYDROXYZINE HCL Inactive FLOMAX 0.4 MG CAPS 1 capsule in the evening for night time urination. FLOMAX 0.4 MG CAPS 609994 TAMSULOSIN HCL Inactive CLEMASTINE FUMARATE 1.34 MG ORAL TABS 1 tab PO BID CLEMASTINE FUMARATE 1.34 MG ORAL TABS 002377 CLEMASTINE FUMARATE Inactive POLY-IRON 150 150 MG CAPS 1 tab po bid POLY-IRON 150 150 MG CAPS POLYSACCHARIDE IRON COMPLEX Inactive NYSTATIN 177719 UNIT/GM CREA apply to rash TID PRN NYSTATIN 103235 UNIT/GM CREA 919052 NYSTATIN Inactive [id number]-[id number]-DTEV 167-83-8 MG TABS 1 tab po daily AZCWFHP-RDEUSWCJA-NSMT 167-83-8 MG TABS ITGLIBK-[id number]-JYAU Inactive MS CONTIN 100 MG AX44B-UDK 1 by mouth twice a day MS CONTIN 100 MG [id number] MORPHINE SULFATE Inactive ENDOCET 10-325 MG TABS 1 by mouth twice a day ENDOCET 10-325 MG TABS 9811309 OXYCODONE-ACETAMINOPHEN Inactive HYDROXYZINE HCL 25 MG TAB take 1 every 4-6 hours as needed 07/01 HYDROXYZINE HCL 25 MG TAB 961655 HYDROXYZINE HCL Inactive ALPRAZOLAM 2 MG TABS 1 tablet by mouth three times daily as needed ALPRAZOLAM 2 MG TABS 587416 ALPRAZOLAM Inactive NEXIUM 40 MG CPDR 1 cap by mouth daily NEXIUM 40 MG CPDR 520384 ESOMEPRAZOLE MAGNESIUM Inactive Advance Directives Directive Description Start Date PERMISSION TO SHARE Vital Signs Date Name Value Unit Range Description blood pressure, diastolic - 8462-4 76 mm[Hg] BP stoddard blood pressure, systolic - 8480-6 128 mm[Hg] BP sys height E&M - 8302-2 68 [in_us] Bdy height pulse rate E&M - 8867-4 105 /min Heart rate temperature E&M 97.9 [degF] Body temperature weight E&M - 3141-9 183 [lb_av] Weight Measured blood pressure, diastolic - 8462-4 97 mm[Hg] BP stoddard blood pressure, systolic - 8480-6 138 mm[Hg] BP sys pulse rate E&M - 8867-4 117 /min Heart rate temperature E&M 98.5 [degF] Body temperature weight E&M - 3141-9 181.5 [lb_av] Weight Measured blood pressure, diastolic - 8462-4 84 mm[Hg] BP stoddard blood pressure, systolic - 8480-6 118 mm[Hg] BP sys pulse rate E&M - 8867-4 100 /min Heart rate temperature E&M 97.8 [degF] Body temperature weight E&M - 3141-9 171.5 [lb_av] Weight Measured Encounters Code Encounter Date Provider Facility CPT-99313 Level 3 Est. Patient 14:25:57 CDT Wily Gonzalez [facility] CPT-69108 Level 3 Est. Patient 09:51:37 ELECTRONIC SYSTEMS SECURITY ASSESSMENT Wily Gonzalez [facility] CPT-81747 Level 3 Est. Patient 11:07:48 CDT Wily Gonzalez [facility] CPT-84837 Level 3 Est. Patient 11:24:24 CDT Wily Gonzalez [facility] CPT-34579 Level 3 Est. Patient 15:19:54 ELECTRONIC SYSTEMS SECURITY ASSESSMENT Wily Gonzalez [facility] CPT-45353 Level 3 Est. Patient 10:04:45 CDT Wily Gonzalez [facility] CPT-11386 Level 3 Est. Patient 13:04:06 CDT Wily Gonzalez [facility] CPT-87668 Level 3 Est. Patient 12:23:04 CDT Wily Gonzalez [facility] CPT-55370 Level 3 Est. Patient 15:43:10 ELECTRONIC SYSTEMS SECURITY ASSESSMENT Wily Gonzalez [facility] CPT-92618 Level 3 Est. Patient 16:10:54 CDT Wily Gonzalez [facility] CPT-00365 Level 3 Est. Patient 19:50:51 CDT Wily Gonzalez [facility] CPT-84091 Level 3 Est. Patient 12:02:30 ELECTRONIC SYSTEMS SECURITY ASSESSMENT Wily Gonzalez [facility] CPT-64120 Level 3 Est. Patient 12:03:11 ELECTRONIC SYSTEMS SECURITY ASSESSMENT Wily Gonzalez [facility] CPT-11357 Level 3 Est. Patient 12:01:41 ELECTRONIC SYSTEMS SECURITY ASSESSMENT Wily Gonzalez [facility] CPT-41926 Level 3 Est. Patient 11:51:24 ELECTRONIC SYSTEMS SECURITY ASSESSMENT Wily Gonzalez [facility] CPT-07413 Level 3 Est. Patient 11:58:20 ELECTRONIC SYSTEMS SECURITY ASSESSMENT Wily Gonzalez [facility] CPT-62827 Level 3 Est. Patient 08:31:36 ELECTRONIC SYSTEMS SECURITY ASSESSMENT Wily Gonzalez [facility] CPT-02069 Level 3 Est. Patient 21:57:36 CDT Wily Gonzalez [facility] CPT-35348 Level 3 Est. Patient 10:49:58 CDT Esvin PAULA [facility] CPT-19410 Level 3 Est. Patient 11:22:52 CDT Esvin PAULA [facility] CPT-59648 Level 3 Est. Patient 13:49:41 CDT Esvin PAULA [facility] CPT-38531 Level 3 Est. Patient 11:54:53 CDT Esvin PAULA [facility] CPT-10958 Level 3 Est. Patient 09:07:11 CDT Esvin PAULA [facility] CPT-93028 Level 3 Est. Patient 13:52:47 CDT Esvin PAULA [facility] CPT-83067 Level 3 Est. Patient 11:26:46 CDT Esvin PAULA [facility] CPT-57410 Level 3 Est. Patient 10:25:00 ELECTRONIC SYSTEMS SECURITY ASSESSMENT Esvin PAULA [facility] CPT-28484 Level 3 Est. Patient 11:39:11 ELECTRONIC SYSTEMS SECURITY ASSESSMENT Esvin PAULA [facility] CPT-46673 Level 3 Est. Patient 13:24:24 ELECTRONIC SYSTEMS SECURITY ASSESSMENT Esvin Hudson CHAI [facility] CPT-20001 Level 3 Est. Patient 10:26:13 ELECTRONIC SYSTEMS SECURITY ASSESSMENT Esvin Hudson [facility]AI [facility] CPT-01522 Level 3 Est. Patient 10:21:21 CDT Esvin Hudson [facility] CPT-82990 Level 3 Est. Patient 10:26:30 CDT Esvin Hudson [facility]AI [facility] CPT-51718 Level 3 Est. Patient 09:16:37 CDT Esvin Hudson [facility]-74182 Level 3 Est. Patient 09:06:58 CDT Esvin Hudson CHAI [facility] CPT-41581 Level 3 Est. Patient 10:05:29 CDT Esvin Hudson [facility]AI [facility] CPT-93739 Level 3 Est. Patient 10:38:45 CDT Esvin Hudson [facility] CPT-62622 Level 3 Est. Patient 10:09:45 CDT Esvin Hudson CHAI [facility] CPT-54681 Level 3 Est. Patient 09:26:37 CDT Esvin Hudson [facility]AI [facility] CPT-26599 Level 3 Est. Patient 10:34:42 ELECTRONIC SYSTEMS SECURITY ASSESSMENT Esvin Hudson CHAI [facility] CPT-41259 Level 3 Est. Patient 10:45:47 ELECTRONIC SYSTEMS SECURITY ASSESSMENT Esvin Tristan [facility] CPT-58990 Level 3 Est. Patient 10:45:22 ELECTRONIC SYSTEMS SECURITY ASSESSMENT Esvin Tristan [facility]-90118 Level 3 Est. Patient 14:18:30 ELECTRONIC SYSTEMS SECURITY ASSESSMENT Esvin Tristan PA [facility] CPT-72833 Level 3 Est. Patient 13:53:29 ELECTRONIC SYSTEMS SECURITY ASSESSMENT Esvin PAULA [facility] CPT-13283 Level 3 Est. Patient 10:34:11 CDT Esvin Hudson [facility] Procedures Code Procedure Name Date Entry Date Standard Description CPT-03653 Smoking Cessation counseling 14:25:57 CDT CPT-37294 Bone Density - XRAY USE ONLY 11:29:32 CDT CPT-14514 LS spine AP and Lat - XRAY USE ONLY 10:07:43 ELECTRONIC SYSTEMS SECURITY ASSESSMENT 10/26 CPT-86323 Venipuncture Draw Fee 09:51:16 ELECTRONIC SYSTEMS SECURITY ASSESSMENT CPT-38697 Smoking Cessation counseling 09:39:47 ELECTRONIC SYSTEMS SECURITY ASSESSMENT CPT-G0438 Initial Annual Wellness Exam 09:37:28 ELECTRONIC SYSTEMS SECURITY ASSESSMENT CPT-19161 Venipuncture Draw Fee 09:26:55 CDT CPT-66792 Venipuncture Draw Fee 11:55:52 CDT CPT-65351 Spec Collection and Handling Fee 09:16:37 CDT CPT-94091 Venipuncture Draw Fee 09:16:37 CDT
--- OUTSIDE RECORDS SUMMARY | 2018-02-26 14:23 | XMS REPORT | Clinical Summary ---
Author Author Admin, E Organization [employer] Address Unknown Phone Unavailable Allergies, Adverse Reactions, [...] Instructions Start Date Stop Date Generic Name [facility] Status Provider Patient Instruction CHANTIX 1 MG TABS 1 twice a day VARENICLINE TARTRATE 68076020389 No Longer Active Wily Gonzalez DO Active RAUL-MAG 500-250 MG ORAL TABS Take one by mouth daily CALCIUM- MAGNESIUM 53623002999 Active Wily Gonzalez DO Active FOSAMAX 70 MG TABS 1 po qweek. Take 30min prior to first food/drink. Avoid lying down x 1 hour. ALENDRONATE SODIUM 90539190768 Active Rose Bang Active CALCIUM 600 MG ORAL TABS 1 po q day CALCIUM 84661803985 Active Rose Bang Active TRIAMCINOLONE ACETONIDE 0.1 % CREA Apply to affected area 3 times daily for up to 2 weeks TRIAMCINOLONE ACETONIDE 57341857316 Active Wily Gonzalez DO Active [id number] 167-83-8 MG TABS 1 tab po daily [id number] 68758970118 No Longer Active Wily Gonzalez DO Active NYSTATIN 951430 UNIT/GM CREA apply to rash TID PRN NYSTATIN 20739207954 No Longer Active Wily Gonzalez DO Active POLY-IRON 150 150 MG CAPS 1 tab po bid POLYSACCHARIDE IRON COMPLEX 58780422891 No Longer Active Wily Gonzalez DO Active FLONASE ALLERGY RELIEF 50 MCG/ACT NASAL SUSP 2 sprays each nostril every day FLUTICASONE PROPIONATE 97557645759 Active Jodi Lucas APRN Active CLEMASTINE FUMARATE 1.34 MG ORAL TABS 1 tab PO BID CLEMASTINE FUMARATE 49576339178 No Longer Active Wily Gonzalez DO Active FLOMAX 0.4 MG CAPS 1 capsule in the evening for night time urination. TAMSULOSIN HCL 68419924040 No Longer Active Wily Gonzalez DO Active PROTONIX 40 MG TBEC 1 po daily PANTOPRAZOLE SODIUM 61874003909 Active Agnieszka Yeung Active HYDROXYZINE HCL 25 MG TAB 1 two times a day as needed for anxiety HYDROXYZINE HCL 73644735012 No Longer Active Wily Gonzalez DO Active ANUSOL-HC 25 MG SUPPOSITORY 1 rectally every 12 hours for irritation HYDROCORTISONE NAEL (RECTAL) 27689527839 No Longer Active Wily Gonzalez DO Active HYDROXYZINE HCL 25 MG TABS Take one (1) tablet by mouth twice a day HYDROXYZINE HCL 68017483857 No Longer Active Wily Gonzalez DO Active ZIAC 2.5-6.25 MG TAB 1 tablet daily for high blood pressure 10/27 BISOPROLOL-HCTZ 99386933368 No Longer Active Wily Gonzalez DO Active ZIAC 2.5-6.25 MG TAB 1 tablet every morning for high blood pressure BISOPROLOL-HCTZ 09230860489 No Longer Active Wily Gonzalez DO Active AMOXICILLIN 500 MG CAPS Take one (1) tablet by mouth three times a day 05/05 AMOXICILLIN 92166394742 No Longer Active Wily Gonzalez DO Active MORPHINE SULFATE ER 100 MG CR-TABS Take one (1) tablet by mouth twice a day MORPHINE SULFATE 97520012677 No Longer Active Wily Gonzalez DO Active MORPHINE SULFATE ER 100 MG [id number] 1 capsule twice daily for chronic pain MORPHINE SULFATE 44821371153 Active Lisa Berkowitz Active CIALIS 10 MG TABS 1 every 72 hours as needed TADALAFIL 11913129425 No Longer Active Esvin PAULA Active FLONASE 50 MCG/ACT SUSP 2 SPRAY EACH NARE DAILY FLUTICASONE PROPIONATE 82140809318 No Longer Active Esvin PAULA Active CYCLOBENZAPRINE HCL 10 MG TABS Take one (1) tablet by mouth three times a day CYCLOBENZAPRINE HCL 59216893516 Active Lisa Berkowitz Active OPANA ER (CRUSH RESISTANT) 40 MG [id number] Take one (1) tablet by mouth twice a day OXYMORPHONE HCL 55037937022 No Longer Active Esvin PAULA Active PROAIR HFA 108 (90 BASE) MCG/ACT AERS 2 puffs every four hours as needed ALBUTEROL SULFATE 97478775256 No Longer Active Esvin PAULA Active CLEARLAX POWD 17gm q day prn constipation POLYETHYLENE GLYCOL 3350 71033822433 Active Wily Gonzalez DO Active MORPHINE SULFATE ER 100 MG [id number] Take one (1) tablet by mouth twice a day MORPHINE SULFATE 45156871310 No Longer Active Esvin PAULA Active FLEXERIL 10 MG TAB 1 tablet by mouth 3 times daily as needed CYCLOBENZAPRINE HCL 08906036003 No Longer Active Esvin PAULA Active CELEBREX 200 MG CAPS 1 tablet by mouth twice daily with meals CELECOXIB 76186067109 No Longer Active Esvin PAULA Active NEXIUM 40 MG CPDR 1 cap daily ESOMEPRAZOLE MAGNESIUM 96108427299 No Longer Active Esvin PAULA Active MOBIC 15 MG TABS 1 tab daily MELOXICAM 45080562450 No Longer Active Esvin PAULA Active LISINOPRIL 20 MG TABS Take 1 tablet by mouth daily LISINOPRIL 41137890960 No Longer Active Esvin PAULA Active DICLOFENAC SODIUM 50 MG TBEC 1 tablet by mouth four times daily DICLOFENAC SODIUM 06558115074 No Longer Active Paula Cooney RN Active VERAMYST 27.5 MCG/SPRAY SUSP 2 spray each nare daily FLUTICASONE FUROATE 26890964510 No Longer Active Megan Vargas RN Active ENDOCET 10-325 MG TABS Take one (1) tablet by mouth three times a day OXYCODONE-ACETAMINOPHEN 90151780328 Active Lisa Berkowitz Active ALPRAZOLAM 2 MG TABS Take one (1) tablet by mouth three times a day ALPRAZOLAM 75956441119 Active Lisa Berkowitz Active NEXIUM 40 MG CPDR 1 cap by mouth daily ESOMEPRAZOLE MAGNESIUM 26749427549 No Longer Active Esvin PAULA Active ALPRAZOLAM 2 MG TABS 1 tablet by mouth three times daily as needed ALPRAZOLAM 95647691033 No Longer Active Esvin PAULA Active HYDROXYZINE HCL 25 MG TAB take 1 every 4-6 hours as needed 07/01 HYDROXYZINE HCL 45674135941 No Longer Active Esvin PAULA Active ENDOCET 10-325 MG TABS 1 by mouth twice a day OXYCODONE-ACETAMINOPHEN 91752118642 No Longer Active Esvin PAULA Active MS CONTIN 100 MG [id number] 1 by mouth twice a day MORPHINE SULFATE 96391034498 No Longer Active Esvin PAULA Active SUDAFED 30 MG TAB 1-2 every 4-6 hours as needed PSEUDOEPHEDRINE HCL 73912677841 Active Rose Bang Active VERAMYST 27.5 MCG/SPRAY SUSP 2 spray each nare daily VERAMYST 27.5 MCG/SPRAY SUSP FLUTICASONE FUROATE Inactive DICLOFENAC SODIUM 50 MG TBEC 1 tablet by mouth four times daily DICLOFENAC SODIUM 50 MG TBEC 973949 DICLOFENAC SODIUM Inactive LISINOPRIL 20 MG TABS Take 1 tablet by mouth daily LISINOPRIL 20 MG TABS 923902 LISINOPRIL Inactive MOBIC 15 MG TABS 1 tab daily MOBIC 15 MG TABS 679086 MELOXICAM Inactive NEXIUM 40 MG CPDR 1 cap daily NEXIUM 40 MG CPDR 428448 ESOMEPRAZOLE MAGNESIUM Inactive CELEBREX 200 MG CAPS 1 tablet by mouth twice daily with meals CELEBREX 200 MG CAPS 757625 CELECOXIB Inactive FLEXERIL 10 MG TAB 1 tablet by mouth 3 times daily as needed FLEXERIL 10 MG TAB CYCLOBENZAPRINE HCL Inactive PROAIR HFA 108 (90 BASE) MCG/ACT AERS 2 puffs every four hours as needed PROAIR HFA 108 (90 BASE) MCG/ACT AERS ALBUTEROL SULFATE Inactive FLONASE 50 MCG/ACT SUSP 2 SPRAY EACH NARE DAILY FLONASE 50 MCG/ACT SUSP 8704501 FLUTICASONE PROPIONATE Inactive CIALIS 10 MG TABS 1 every 72 hours as needed CIALIS 10 MG TABS TADALAFIL Inactive MORPHINE SULFATE ER 100 MG CR-TABS Take one (1) tablet by mouth twice a day MORPHINE SULFATE ER 100 MG CR-TABS MORPHINE SULFATE Inactive AMOXICILLIN 500 MG CAPS Take one (1) tablet by mouth three times a day 05/05 AMOXICILLIN 500 MG CAPS 434659 AMOXICILLIN Inactive ZIAC 2.5-6.25 MG TAB 1 tablet every morning for high blood pressure ZIAC 2.5-6.25 MG TAB 843393 BISOPROLOL-HCTZ Inactive ZIAC 2.5-6.25 MG TAB 1 tablet daily for high blood pressure 10/27 ZIAC 2.5-6.25 MG TAB 058293 BISOPROLOL-HCTZ Inactive HYDROXYZINE HCL 25 MG TABS Take one (1) tablet by mouth twice a day HYDROXYZINE HCL 25 MG TABS 590891 HYDROXYZINE HCL Inactive ANUSOL-HC 25 MG SUPPOSITORY 1 rectally every 12 hours for irritation ANUSOL-HC 25 MG SUPPOSITORY 4147220 HYDROCORTISONE NAEL (RECTAL ) Inactive HYDROXYZINE HCL 25 MG TAB 1 two times a day as needed for anxiety HYDROXYZINE HCL 25 MG TAB 086522 HYDROXYZINE HCL Inactive FLOMAX 0.4 MG CAPS 1 capsule in the evening for night time urination. FLOMAX 0.4 MG CAPS 033909 TAMSULOSIN HCL Inactive CLEMASTINE FUMARATE 1.34 MG ORAL TABS 1 tab PO BID CLEMASTINE FUMARATE 1.34 MG ORAL TABS 241755 CLEMASTINE FUMARATE Inactive POLY-IRON 150 150 MG CAPS 1 tab po bid POLY-IRON 150 150 MG CAPS POLYSACCHARIDE IRON COMPLEX Inactive NYSTATIN 787090 UNIT/GM CREA apply to rash TID PRN NYSTATIN 303376 UNIT/GM CREA 147158 NYSTATIN Inactive GCTOSWU-[id number]-KACP 167-83-8 MG TABS 1 tab po daily UQEZKJP-ZJMIQCZLJ-ZCRP 167-83-8 MG TABS [id number]-ZGPFZBLEM-IQTR Inactive CHANTIX 1 MG TABS 1 twice a day CHANTIX 1 MG TABS VARENICLINE TARTRATE Inactive MS CONTIN 100 MG [id number] 1 by mouth twice a day MS CONTIN 100 MG [id number] MORPHINE SULFATE Inactive ENDOCET 10-325 MG TABS 1 by mouth twice a day ENDOCET 10-325 MG TABS 3865152 OXYCODONE-ACETAMINOPHEN Inactive HYDROXYZINE HCL 25 MG TAB take 1 every 4-6 hours as needed 07/01 HYDROXYZINE HCL 25 MG TAB 392652 HYDROXYZINE HCL Inactive ALPRAZOLAM 2 MG TABS 1 tablet by mouth three times daily as needed ALPRAZOLAM 2 MG TABS 498915 ALPRAZOLAM Inactive NEXIUM 40 MG CPDR 1 cap by mouth daily NEXIUM 40 MG CPDR 589928 ESOMEPRAZOLE MAGNESIUM Inactive Advance Directives Directive Description Start Date PERMISSION TO SHARE Vital Signs Date Name Value Unit Range Description blood pressure, diastolic - 8462-4 98 mm[Hg] BP stoddard blood pressure, systolic - 8480-6 152 mm[Hg] BP sys height E&M - 8302-2 68 [in_us] Bdy height pulse rate E&M - 8867-4 90 /min Heart rate temperature E&M 96.6 [degF] Body temperature weight E&M - 3141-9 166.38 [lb_av] Weight Measured blood pressure, diastolic - 8462-4 76 mm[Hg] [...] Measured Encounters Code Encounter Date Provider Facility CPT-21641 Level 4 Est. Patient 10:10:03 CDT Wily Zhang [facility] CPT-40907 Level 3 Est. Patient 14:25:57 CDT Wily Zhang [facility] CPT-47213 Level 3 Est. Patient 09:51:37 CHIEF CREATIVE OFFICER Wily Gonzalez [facility] CPT-34934 Level 3 Est. Patient 11:07:48 CDT Wily Zhang [facility] CPT-56879 Level 3 Est. Patient 11:24:24 CDT Wily Gonzalez [facility] CPT-60812 Level 3 Est. Patient 15:19:54 CHIEF CREATIVE OFFICER Wily Zhang [facility] CPT-51584 Level 3 Est. Patient 10:04:45 CDT Wily Gonzalez [facility] CPT-48388 Level 3 Est. Patient 13:04:06 CDT Wily Gonzalez [facility] CPT-26525 Level 3 Est. Patient 12:23:04 CDT Wily Gonzalez [facility] CPT-51763 Level 3 Est. Patient 15:43:10 CHIEF CREATIVE OFFICER Wily Gonzalez [facility] CPT-45760 Level 3 Est. Patient 16:10:54 CDT Wily Gonzalez [facility] CPT-41088 Level 3 Est. Patient 19:50:51 CDT Wily Gonzalez [facility] CPT-10460 Level 3 Est. Patient 12:02:30 CHIEF CREATIVE OFFICER Wily Gonzalez [facility] CPT-30290 Level 3 Est. Patient 12:03:11 CHIEF CREATIVE OFFICER Wily Gonzalez [facility] CPT-16905 Level 3 Est. Patient 12:01:41 CHIEF CREATIVE OFFICER Wily Gonzalez [facility] CPT-43773 Level 3 Est. Patient 11:51:24 CHIEF CREATIVE OFFICER Wily Gonzalez [facility] CPT-97911 Level 3 Est. Patient 11:58:20 CHIEF CREATIVE OFFICER Wily Gonzalez [facility] CPT-11800 Level 3 Est. Patient 08:31:36 CHIEF CREATIVE OFFICER Wily Gonzalez [facility] CPT-80400 Level 3 Est. Patient 21:57:36 CDT Wily Gonzalez [facility] CPT-85041 Level 3 Est. Patient 10:49:58 CDT Esvin PAULA [facility] CPT-04924 Level 3 Est. Patient 11:22:52 CDT Esvin PAULA [facility] CPT-86823 Level 3 Est. Patient 13:49:41 CDT Esvin PAULA [facility] CPT-29836 Level 3 Est. Patient 11:54:53 CDT Esvin [place] PA [facility] CPT-53948 Level 3 Est. Patient 09:07:11 CDT Esvin [place] PA [facility] CPT-64042 Level 3 Est. Patient 13:52:47 CDT Esvin Tristan PA [facility] CPT-03803 Level 3 Est. Patient 11:26:46 CDT Esvin [place] CHAI [facility] CPT-91742 Level 3 Est. Patient 10:25:00 CHIEF CREATIVE OFFICER Esvin Tristan PA [facility] CPT-14048 Level 3 Est. Patient 11:39:11 CHIEF CREATIVE OFFICER Esvin PAULA [facility] CPT-64950 Level 3 Est. Patient 13:24:24 CHIEF CREATIVE OFFICER Esvin Tristan PA [facility] CPT-87265 Level 3 Est. Patient 10:26:13 CHIEF CREATIVE OFFICER Esvin [place] PA [facility] CPT-56904 Level 3 Est. Patient 10:21:21 CDT Esvin [place] PA [facility] CPT-69822 Level 3 Est. Patient 10:26:30 CDT Esvin Tristan PA [facility] CPT-74881 Level 3 Est. Patient 09:16:37 CDT Esvin Tristan PA [facility]-59735 Level 3 Est. Patient 09:06:58 CDT Esvin Tristan PA [facility] CPT-82417 Level 3 Est. Patient 10:05:29 CDT Esvin PAULA [facility] CPT-28054 Level 3 Est. Patient 10:38:45 CDT Esvin PAULA [facility] CPT-36673 Level 3 Est. Patient 10:09:45 CDT Esvin [place] [facility] CPT-43570 Level 3 Est. Patient 09:26:37 CDT Esvin [place] [facility] CPT-72760 Level 3 Est. Patient 10:34:42 CHIEF CREATIVE OFFICER Esvin Hudson [facility] CPT-72753 Level 3 Est. Patient 10:45:47 CHIEF CREATIVE OFFICER Esvin Tristan [facility] CPT-80373 Level 3 Est. Patient 10:45:22 CHIEF CREATIVE OFFICER Esvin [place] [facility] CPT-62956 Level 3 Est. Patient 14:18:30 CHIEF CREATIVE OFFICER Esvin [facility] CPT-68746 Level 3 Est. Patient 13:53:29 CHIEF CREATIVE OFFICER Esvin [facility] CPT-61008 Level 3 Est. Patient 10:34:11 CDT Esvin [facility] Procedures Code Procedure Name Date Entry Date Standard Description CPT-24799 Smoking Cessation counseling 10:10:03 CDT CPT-21075 Smoking Cessation counseling 14:25:57 CDT CPT-81659 Bone Density - XRAY USE ONLY 11:29:32 CDT CPT-50065 LS spine AP and Lat - XRAY USE ONLY 10:07:43 CHIEF CREATIVE OFFICER 10/26 CPT-22549 Venipuncture Draw Fee 09:51:16 CHIEF CREATIVE OFFICER CPT-93964 Smoking Cessation counseling 09:39:47 CHIEF CREATIVE OFFICER CPT-G0438 Initial Annual Wellness Exam 09:37:28 CHIEF CREATIVE OFFICER CPT-35288 Venipuncture Draw Fee 09:26:55 CDT CPT-37880 Venipuncture Draw Fee 11:55:52 CDT CPT-66451 Spec Collection and Handling Fee 09:16:37 CDT CPT-56044 Venipuncture Draw Fee 09:16:37 CDT
--- OUTSIDE RECORDS SUMMARY | 2018-02-26 14:24 | XMS REPORT | Clinical Summary ---
Author Author Admin, E Organization [employer] Address Unknown Phone Unavailable Allergies, Adverse Reactions, [...] Generic Name NDC Status Provider Patient Instruction [id number] 167-83-8 MG TABS 1 tab po daily [id number] No Longer Active Wily Gonzalez DO Active NYSTATIN 499172 UNIT/GM CREA apply to rash TID PRN NYSTATIN 58991102149 No Longer Active Wily Gonzalez DO Active POLY-IRON 150 150 MG CAPS 1 tab po bid POLYSACCHARIDE IRON COMPLEX 41856357372 No Longer Active Wily Gonzalez DO Active FLONASE ALLERGY RELIEF 50 MCG/ACT NASAL SUSP 2 sprays each nostril every day FLUTICASONE PROPIONATE 26718592817 Active Wily Gonzalez DO Active CLEMASTINE FUMARATE 1.34 MG ORAL TABS 1 tab PO BID CLEMASTINE FUMARATE 99207487130 No Longer Active Wily Gonzalez DO Active FLOMAX 0.4 MG CAPS 1 capsule in the evening for night time urination. TAMSULOSIN HCL 15891648137 No Longer Active Wily Gonzalez DO Active PROTONIX 40 MG TBEC 1 po daily PANTOPRAZOLE SODIUM 42488994586 Active Wily Gonzalez DO Active HYDROXYZINE HCL 25 MG TAB 1 two times a day as needed for anxiety HYDROXYZINE HCL 98735298679 No Longer Active Wily Gonzalez DO Active ANUSOL-HC 25 MG SUPPOSITORY 1 rectally every 12 hours for irritation HYDROCORTISONE NAEL (RECTAL) 74916711692 No Longer Active Wily Gonzalez DO Active HYDROXYZINE HCL 25 MG TABS Take one (1) tablet by mouth twice a day HYDROXYZINE HCL 61197047809 No Longer Active Wily Gonzalez DO Active ZIAC 2.5-6.25 MG TAB 1 tablet daily for high blood pressure 10/27 BISOPROLOL-HCTZ 06468410897 No Longer Active Wily Gonzalez DO Active ZIAC 2.5-6.25 MG TAB 1 tablet every morning for high blood pressure BISOPROLOL-HCTZ 60096019910 No Longer Active Wily Gonzalez DO Active AMOXICILLIN 500 MG CAPS Take one (1) tablet by mouth three times a day 05/05 AMOXICILLIN 99042294555 No Longer Active Wily Gonzalez DO Active MORPHINE SULFATE ER 100 MG CR-TABS Take one (1) tablet by mouth twice a day MORPHINE SULFATE 13926392430 No Longer Active Wily Gonzalez DO Active MORPHINE SULFATE ER 100 MG [id number] 1 capsule twice daily for chronic pain MORPHINE SULFATE 14283768027 Active Wily Gonzalez DO Active CIALIS 10 MG TABS 1 every 72 hours as needed TADALAFIL 10590081266 No Longer Active Esvin PAULA Active FLONASE 50 MCG/ACT SUSP 2 SPRAY EACH NARE DAILY FLUTICASONE PROPIONATE 14690333444 No Longer Active Esvin PAULA Active CYCLOBENZAPRINE HCL 10 MG TABS Take one (1) tablet by mouth three times a day CYCLOBENZAPRINE HCL 56008351447 Active Wily Gonzalez DO Active OPANA ER (CRUSH RESISTANT) 40 MG [id number] Take one (1) tablet by mouth twice a day OXYMORPHONE HCL 35234705568 No Longer Active Esvin PAULA Active PROAIR HFA 108 (90 BASE) MCG/ACT AERS 2 puffs every four hours as needed ALBUTEROL SULFATE 56309273118 No Longer Active Esvin PAULA Active CLEARLAX POWD 17gm q day prn constipation POLYETHYLENE GLYCOL 3350 57152525374 Active Kaylen Leigh MA Active MORPHINE SULFATE ER 100 MG [id number] Take one (1) tablet by mouth twice a day MORPHINE SULFATE 70108008018 No Longer Active Esvin PAULA Active FLEXERIL 10 MG TAB 1 tablet by mouth 3 times daily as needed CYCLOBENZAPRINE HCL 53639965945 No Longer Active Esvin PAULA Active CELEBREX 200 MG CAPS 1 tablet by mouth twice daily with meals CELECOXIB 29051254686 No Longer Active Esvin PAULA Active NEXIUM 40 MG CPDR 1 cap daily ESOMEPRAZOLE MAGNESIUM 56134114903 No Longer Active Esvin PAULA Active MOBIC 15 MG TABS 1 tab daily MELOXICAM 26096834224 No Longer Active Esvin PAULA Active LISINOPRIL 20 MG TABS Take 1 tablet by mouth daily LISINOPRIL 21550749668 No Longer Active Esvin PAULA Active DICLOFENAC SODIUM 50 MG TBEC 1 tablet by mouth four times daily DICLOFENAC SODIUM 94455667933 No Longer Active Paula Cooney RN Active VERAMYST 27.5 MCG/SPRAY SUSP 2 spray each nare daily FLUTICASONE FUROATE 33695979427 No Longer Active Megan Alicia CARVAJAL Active ENDOCET 10-325 MG TABS Take one (1) tablet by mouth three times a day OXYCODONE-ACETAMINOPHEN 27188477770 Active Wily Gonzalez DO Active ALPRAZOLAM 2 MG TABS Take one (1) tablet by mouth three times a day ALPRAZOLAM 26993728590 Active Kaylen Leigh MA Active NEXIUM 40 MG CPDR 1 cap by mouth daily ESOMEPRAZOLE MAGNESIUM 58707803932 No Longer Active Esvin PAULA Active ALPRAZOLAM 2 MG TABS 1 tablet by mouth three times daily as needed ALPRAZOLAM 11937749086 No Longer Active Esvin PAULA Active HYDROXYZINE HCL 25 MG TAB take 1 every 4-6 hours as needed 07/01 HYDROXYZINE HCL 96174446953 No Longer Active Esvin PAULA Active ENDOCET 10-325 MG TABS 1 by mouth twice a day OXYCODONE-ACETAMINOPHEN 53934787296 No Longer Active Esvin PAULA Active MS CONTIN 100 MG [id number] 1 by mouth twice a day MORPHINE SULFATE 83657770422 No Longer Active Esvin PAULA Active SUDAFED 30 MG TAB 1-2 every 4-6 hours as needed PSEUDOEPHEDRINE HCL 15063656992 Active Marylou Melissa RPT,RMA Active VERAMYST 27.5 MCG/SPRAY SUSP 2 spray each nare daily VERAMYST 27.5 MCG/SPRAY SUSP FLUTICASONE FUROATE Inactive DICLOFENAC SODIUM 50 MG TBEC 1 tablet by mouth four times daily DICLOFENAC SODIUM 50 MG TBEC 294952 DICLOFENAC SODIUM Inactive LISINOPRIL 20 MG TABS Take 1 tablet by mouth daily LISINOPRIL 20 MG TABS 449741 LISINOPRIL Inactive MOBIC 15 MG TABS 1 tab daily MOBIC 15 MG TABS 078274 MELOXICAM Inactive NEXIUM 40 MG CPDR 1 cap daily NEXIUM 40 MG CPDR 921137 ESOMEPRAZOLE MAGNESIUM Inactive CELEBREX 200 MG CAPS 1 tablet by mouth twice daily with meals CELEBREX 200 MG CAPS 587174 CELECOXIB Inactive FLEXERIL 10 MG TAB 1 [...] a day 05/05 AMOXICILLIN 500 MG CAPS 729317 AMOXICILLIN Inactive ZIAC 2.5-6.25 MG TAB 1 tablet every morning for high blood pressure ZIAC 2.5-6.25 MG TAB 097251 BISOPROLOL-HCTZ Inactive ZIAC 2.5-6.25 MG TAB 1 tablet daily for high blood pressure 10/27 ZIAC 2.5-6.25 MG TAB 909411 BISOPROLOL-HCTZ Inactive HYDROXYZINE HCL 25 MG TABS Take one (1) tablet by mouth twice a day HYDROXYZINE HCL 25 MG TABS 400916 HYDROXYZINE HCL Inactive ANUSOL-HC 25 MG SUPPOSITORY 1 rectally every 12 hours for irritation ANUSOL-HC 25 MG SUPPOSITORY 8402267 HYDROCORTISONE NAEL (RECTAL ) Inactive HYDROXYZINE HCL 25 MG TAB 1 two times a day as needed for anxiety HYDROXYZINE HCL 25 MG TAB 096441 HYDROXYZINE HCL Inactive FLOMAX 0.4 MG CAPS 1 capsule in the evening for night time urination. FLOMAX 0.4 MG CAPS 556728 TAMSULOSIN HCL Inactive CLEMASTINE FUMARATE 1.34 MG ORAL TABS 1 tab PO BID CLEMASTINE FUMARATE 1.34 MG ORAL TABS 213833 CLEMASTINE FUMARATE Inactive POLY-IRON 150 150 MG CAPS 1 tab po bid POLY-IRON 150 150 MG CAPS POLYSACCHARIDE IRON COMPLEX Inactive NYSTATIN 932062 UNIT/GM CREA apply to rash TID PRN NYSTATIN 323167 UNIT/GM CREA 687610 NYSTATIN Inactive [id number] 167-83-8 MG TABS 1 tab po daily [id number] 167-83-8 MG TABS [id number] Inactive MS CONTIN 100 MG [id number] 1 by mouth twice a day MS CONTIN 100 MG [id number]-PQU MORPHINE SULFATE Inactive ENDOCET 10-325 MG TABS 1 by mouth twice a day ENDOCET 10-325 MG TABS 4415607 OXYCODONE-ACETAMINOPHEN Inactive HYDROXYZINE HCL 25 MG TAB take 1 every 4-6 hours as needed 07/01 HYDROXYZINE HCL 25 MG TAB 432359 HYDROXYZINE HCL Inactive ALPRAZOLAM 2 MG TABS 1 tablet by mouth three times daily as needed ALPRAZOLAM 2 MG TABS 800150 ALPRAZOLAM Inactive NEXIUM 40 MG CPDR 1 cap by mouth daily NEXIUM 40 MG CPDR 554785 ESOMEPRAZOLE MAGNESIUM Inactive Advance Directives Directive Description [...] Range Description Lab Report: CBC - Hematology mean corpuscular hemoglobin, RBC 31.1 pg 27.0-31.2 mean corpuscular hemoglobin concentration, RBC 33.3 G/DL % 31.8- 35.4 red blood cell distribution width 14.6 % 11.6-14.8 platelet count 269 10^3/MM^3 10*3/mm3 [phone]/03/25 mean corpuscular volume, RBC 93 fL 80-97 hematocrit, blood 41.9 % 41.0-53.0 hemoglobin, blood 14.0 g/dL 13.5-17.5 erythrocyte (RBC) count 4.49 10^6/MM^3 10*6/mm3 4.69-6.13 leukocyte count, blood 5.7 10^3/MM^3 10*3/mm3 4.6-10.2 Lab Report: Comp. Metabolic Panel, Lipid Panel, Thyroid Stimulating Horm ... - Chemistry sodium, serum 140 mmol/L 747-645 2051/03/25 carbon dioxide, venous blood 31.3 mmol/L 21.0-32.0 potassium, serum 4.0 mmol/L 3.5-5.2 chloride, serum 101 mmol/L 98-107 blood glucose 96 mg/dL 65-110 urea nitrogen, blood 7 mg/dL 7-18 creatinine, serum 0.94 mg/dL 0.55-1.30 alanine aminotransferase (SGPT), serum 23 U/L 12-78 aspartate aminotransferase (SGOT), serum 21 U/L 15-37 calcium, serum 8.9 mg/dL 8.5-10.1 bilirubin, serum, total 0.30 mg/dL 0.00-1.00 cholesterol, serum 169 mg/dL 503-586 1648/03/25 triglyceride, serum, fasting 143 mg/dL 30-200 HDL [...] 5.0-8.5 Encounters Code Encounter Date Provider Facility CPT-83887 Level 3 Est. Patient 11:07:48 CDT Wily Gonzalez [facility] CPT-02649 Level 3 Est. Patient 11:24:24 CDT Wily Gonzalez [facility] CPT-30094 Level 3 Est. Patient 15:19:54 CLINICAL SCIENTIST Wily Gonzalez [facility] CPT-81328 Level 3 Est. Patient 10:04:[address] [facility] CPT-01342 Level 3 Est. Patient 13:04:[address] [facility] CPT-38442 Level 3 Est. Patient 12:23:[address] [facility] CPT-33594 Level 3 Est. Patient 15:43:10 CLINICAL SCIENTIST Wily Gonzalez [facility] CPT-18302 Level 3 Est. Patient 16:10:[address] [facility] CPT-80657 Level 3 Est. Patient 19:50:[address] [facility] CPT-34639 Level 3 Est. Patient 12:02:30 CLINICAL SCIENTIST Wily Gonzalez [facility] CPT-49833 Level 3 Est. Patient 12:03:11 CLINICAL SCIENTIST Wily Gonzalez [facility] CPT-44858 Level 3 Est. Patient 12:01:41 CLINICAL SCIENTIST Wily Gonzalez [facility] CPT-09461 Level 3 Est. Patient 11:51:24 CLINICAL SCIENTIST Wily Gonzalez [facility] CPT-31738 Level 3 Est. Patient 11:58:20 CLINICAL SCIENTIST Wily Zhang Carlos [facility] CPT-31863 Level 3 Est. Patient 08:31:36 CLINICAL SCIENTIST Wily Gonzalez [facility] CPT-27480 Level 3 Est. Patient 21:57:36 CDT Wily Gonzalez DO [facility] CPT-77505 Level 3 Est. Patient 10:49:58 CDT Esvin PAULA [facility]-60495 Level 3 Est. Patient 11:22:52 CDT Esvin PAULA [facility] CPT-10208 Level 3 Est. Patient 13:49:41 CDT Esvin PAULA [facility] CPT-38993 Level 3 Est. Patient 11:54:53 CDT Esvin Tristan [facility] CPT-15263 Level 3 Est. Patient 09:07:11 CDT Esvin PAULA [facility] CPT-07144 Level 3 Est. Patient 13:52:47 CDT Esvin PAULA [facility] CPT-77114 Level 3 Est. Patient 11:26:46 CDT Esvin PAULA [facility] CPT-53354 Level 3 Est. Patient 10:25:00 CLINICAL SCIENTIST Esvin PAULA [facility] CPT-66207 Level 3 Est. Patient 11:39:11 CLINICAL SCIENTIST Esvin PAULA [facility] CPT-87824 Level 3 Est. Patient 13:24:24 CLINICAL SCIENTIST Esvin PAULA [facility] CPT-78297 Level 3 Est. Patient 10:26:13 CLINICAL SCIENTIST Esvin PAULA [facility] CPT-05396 Level 3 Est. Patient 10:21:21 CDT Esvin PAULA [facility] CPT-46229 Level 3 Est. Patient 10:26:30 CDT Esvin PAULA [facility] CPT-24142 Level 3 Est. Patient 09:16:37 CDT Esvin PAULA [facility]-92313 Level 3 Est. Patient 09:06:58 CDT Esvin Tristan CHAI [facility] CPT-30366 Level 3 Est. Patient 10:05:29 CDT Esvin Tristan CHAI [facility] CPT-03364 Level 3 Est. Patient 10:38:45 CDT Esvin Hudson [facility] CPT-60013 Level 3 Est. Patient 10:09:45 CDT Esvin Hudson [facility] CPT-67668 Level 3 Est. Patient 09:26:37 CDT Esvin Tristan [facility] CPT-52358 Level 3 Est. Patient 10:34:42 CLINICAL SCIENTIST Esvin Tristan [facility] CPT-33324 Level 3 Est. Patient 10:45:47 CLINICAL SCIENTIST Esvin Tristan [facility] CPT-64415 Level 3 Est. Patient 10:45:22 CLINICAL SCIENTIST Esvin Tristan [facility] CPT-77143 Level 3 Est. Patient 14:18:30 CLINICAL SCIENTIST Esvin Tristan [facility] CPT-21883 Level 3 Est. Patient 13:53:29 CLINICAL SCIENTIST Esvin Tristan [facility] CPT-05236 Level 3 Est. Patient 10:34:11 CDT Esvin Tristan [facility] Procedures Code Procedure Name Date Entry Date Standard Description CPT-10876 Venipuncture Draw Fee 09:26:55 CDT CPT-47618 Venipuncture Draw Fee 11:55:52 CDT CPT-90351 Spec Collection and Handling Fee 09:16:37 CDT CPT-88000 Venipuncture Draw Fee 09:16:37 CDT
--- OUTSIDE RECORDS SUMMARY | 2018-02-26 14:25 | XMS REPORT | Clinical Summary ---
Author Author Admin, ERICKA Organization [facility] Address Unknown Phone Unavailable Allergies, Adverse [...] TABS 1 tab PO BID CLEMASTINE FUMARATE [id number] No Longer Active Wily Gonzalez DO Active FLOMAX 0.4 MG CAPS 1 capsule in the evening for night time urination. TAMSULOSIN HCL 07277285654 No Longer Active Wily Gonzalez DO Active PROTONIX 40 MG TBEC 1 po daily PANTOPRAZOLE SODIUM 11957377796 Active Wily Gonzalez DO Active HYDROXYZINE HCL 25 MG TAB 1 two times a day as needed for anxiety HYDROXYZINE HCL 45744000751 No Longer Active Wily Gonzalez DO Active ANUSOL-HC 25 MG SUPPOSITORY 1 rectally every 12 hours for irritation HYDROCORTISONE NAEL (RECTAL) 08541831580 No Longer Active Wily Gonzalez DO Active HYDROXYZINE HCL 25 MG TABS Take one (1) tablet by mouth twice a day HYDROXYZINE HCL 92378622379 No Longer Active Wily Gonzalez DO Active ZIAC 2.5-6.25 MG TAB 1 tablet daily for high blood pressure 10/27 BISOPROLOL-HCTZ 33787591062 No Longer Active Wily Gonzalez DO Active [id number] 167-83-8 MG TABS 1 tab po daily CALCIUM -MAGNESIUM-ZINC 82485528082 Active Wily Gonzalez DO Active NYSTATIN 853430 UNIT/GM CREA apply to rash TID PRN NYSTATIN 73986706740 Active Wily Gonzalez DO Active ZIAC 2.5-6.25 MG TAB 1 tablet every morning for high blood pressure BISOPROLOL-HCTZ 06917215077 No Longer Active Wily Gonzalez DO Active AMOXICILLIN 500 MG CAPS Take one (1) tablet by mouth three times a day 05/05 AMOXICILLIN 03534433341 No Longer Active Wily Gonzalez DO Active MORPHINE SULFATE ER 100 MG CR-TABS Take one (1) tablet by mouth twice a day MORPHINE SULFATE 51398155217 No Longer Active Wily Gonzalez DO Active MORPHINE SULFATE ER 100 MG [id number] 1 capsule twice daily for chronic pain MORPHINE SULFATE 23084992141 Active Wily Gonzalez DO Active FLONASE 50 MCG/ACT SUSP 2 sprays each nare q day FLUTICASONE PROPIONATE 82041072302 Active Rudy Cheung MD Active CIALIS 10 MG TABS 1 every 72 hours as needed TADALAFIL 84540015135 No Longer Active Esvin PAULA Active FLONASE 50 MCG/ACT SUSP 2 SPRAY EACH NARE DAILY FLUTICASONE PROPIONATE 20754118060 No Longer Active Esvin PAULA Active CYCLOBENZAPRINE HCL 10 MG TABS Take one (1) tablet by mouth three times a day CYCLOBENZAPRINE HCL 58505367660 Active Wily Gonzalez DO Active OPANA ER (CRUSH RESISTANT) 40 MG [id number] Take one (1) tablet by mouth twice a day OXYMORPHONE HCL 32250248650 No Longer Active Esvin PAULA Active POLY-IRON 150 150 MG CAPS 1 tab po bid POLYSACCHARIDE IRON COMPLEX 46723840957 Active Esvin PAULA Active PROAIR HFA 108 (90 BASE) MCG/ACT AERS 2 puffs every four hours as needed ALBUTEROL SULFATE 98121947767 No Longer Active Esvin PAULA Active CLEARLAX POWD 17gm q day prn constipation POLYETHYLENE GLYCOL 3350 13407780980 Active Jonas PAULA Active MORPHINE SULFATE ER 100 MG [id number] Take one (1) tablet by mouth twice a day MORPHINE SULFATE 25063388163 No Longer Active Esvin PAULA Active FLEXERIL 10 MG TAB 1 tablet by mouth 3 times daily as needed CYCLOBENZAPRINE HCL 32750655282 No Longer Active Esvin PAULA Active CELEBREX 200 MG CAPS 1 tablet by mouth twice daily with meals CELECOXIB 62895731743 No Longer Active Esvin PAULA Active NEXIUM 40 MG CPDR 1 cap daily ESOMEPRAZOLE MAGNESIUM 62798398365 No Longer Active Esvin PAULA Active MOBIC 15 MG TABS 1 tab daily MELOXICAM 19148396748 No Longer Active Esvin PAULA Active LISINOPRIL 20 MG TABS Take 1 tablet by mouth daily LISINOPRIL 19250613752 No Longer Active Esvin PAULA Active DICLOFENAC SODIUM 50 MG TBEC 1 tablet by mouth four times daily DICLOFENAC SODIUM 13601488991 No Longer Active Paula Cooney RN Active VERAMYST 27.5 MCG/SPRAY SUSP 2 spray each nare daily FLUTICASONE FUROATE 23415075062 No Longer Active Megan Vargas RN Active ENDOCET 10-325 MG TABS Take one (1) tablet by mouth three times a day OXYCODONE-ACETAMINOPHEN 18077535255 Active Wily Gonzalez DO Active ALPRAZOLAM 2 MG TABS Take one (1) tablet by mouth three times a day ALPRAZOLAM 06196126377 Active Wily Gonzalez DO Active NEXIUM 40 MG CPDR 1 cap by mouth daily ESOMEPRAZOLE MAGNESIUM 05794064071 No Longer Active Esvin PAULA Active ALPRAZOLAM 2 MG TABS 1 tablet by mouth three times daily as needed ALPRAZOLAM 93955428999 No Longer Active Esvin PAULA Active HYDROXYZINE HCL 25 MG TAB take 1 every 4-6 hours as needed 07/01 HYDROXYZINE HCL 67770017158 No Longer Active Esvin PAULA Active ENDOCET 10-325 MG TABS 1 by mouth twice a day OXYCODONE-ACETAMINOPHEN 15843876930 No Longer Active Esvin PAULA Active MS CONTIN 100 MG [id number] 1 by mouth twice a day MORPHINE SULFATE 82039770476 No Longer Active Esvin PAULA Active SUDAFED 30 MG TAB 1-2 every 4-6 hours as needed PSEUDOEPHEDRINE HCL 64108135452 Active Wily Gonzalez DO Active VERAMYST 27.5 MCG/SPRAY SUSP 2 spray each nare daily VERAMYST 27.5 MCG/SPRAY SUSP FLUTICASONE FUROATE Inactive DICLOFENAC SODIUM 50 MG TBEC 1 tablet by mouth four times daily DICLOFENAC SODIUM 50 MG TBEC 832293 DICLOFENAC SODIUM Inactive LISINOPRIL 20 MG TABS Take 1 tablet by mouth daily LISINOPRIL 20 MG TABS 847753 LISINOPRIL Inactive MOBIC 15 MG TABS 1 tab daily MOBIC 15 MG TABS 253674 MELOXICAM Inactive NEXIUM 40 MG CPDR 1 cap daily NEXIUM 40 MG CPDR ESOMEPRAZOLE MAGNESIUM Inactive CELEBREX 200 MG CAPS 1 tablet by mouth twice daily with meals CELEBREX 200 MG CAPS 622444 CELECOXIB Inactive FLEXERIL 10 MG TAB 1 tablet by mouth 3 times daily as needed FLEXERIL 10 MG TAB CYCLOBENZAPRINE HCL Inactive PROAIR HFA 108 (90 BASE) MCG/ACT AERS 2 puffs every four hours as needed PROAIR HFA 108 (90 BASE) MCG/ACT AERS ALBUTEROL SULFATE Inactive FLONASE 50 MCG/ACT SUSP 2 SPRAY EACH NARE DAILY FLONASE 50 MCG/ACT SUSP 317551 FLUTICASONE PROPIONATE Inactive CIALIS 10 MG TABS 1 every 72 hours as needed CIALIS 10 MG TABS TADALAFIL Inactive MORPHINE SULFATE ER 100 MG CR-TABS Take one (1) tablet by mouth twice a day MORPHINE SULFATE ER 100 MG CR-TABS MORPHINE SULFATE Inactive AMOXICILLIN 500 MG CAPS Take one (1) tablet by mouth three times a day 05/05 AMOXICILLIN 500 MG CAPS 852122 AMOXICILLIN Inactive ZIAC 2.5-6.25 MG TAB 1 tablet every morning for high blood pressure ZIAC 2.5-6.25 MG TAB 965121 BISOPROLOL-HCTZ Inactive ZIAC 2.5-6.25 MG TAB 1 tablet daily for high blood pressure 10/27 ZIAC 2.5-6.25 MG TAB 649013 BISOPROLOL-HCTZ Inactive HYDROXYZINE HCL 25 MG TABS Take one (1) tablet by mouth twice a day HYDROXYZINE HCL 25 MG TABS 338503 HYDROXYZINE HCL Inactive ANUSOL-HC 25 MG SUPPOSITORY 1 rectally every 12 hours for irritation ANUSOL-HC 25 MG SUPPOSITORY 1046882 HYDROCORTISONE NAEL (RECTAL ) Inactive HYDROXYZINE HCL 25 MG TAB 1 two times a day as needed for anxiety HYDROXYZINE HCL 25 MG TAB 793694 HYDROXYZINE HCL Inactive FLOMAX 0.4 MG CAPS 1 capsule in the evening for night time urination. FLOMAX 0.4 MG CAPS 651498 TAMSULOSIN HCL Inactive CLEMASTINE FUMARATE 1.34 MG ORAL TABS 1 tab PO BID CLEMASTINE FUMARATE 1.34 MG ORAL TABS 980499 CLEMASTINE FUMARATE Inactive MS CONTIN 100 MG [id number] 1 by mouth twice a day MS CONTIN 100 MG [id number] MORPHINE SULFATE Inactive ENDOCET 10-325 MG TABS 1 by mouth twice a day ENDOCET 10-325 MG TABS 2528280 OXYCODONE-ACETAMINOPHEN Inactive HYDROXYZINE HCL 25 MG TAB take 1 every 4-6 hours as needed 07/01 HYDROXYZINE HCL 25 MG TAB 877018 HYDROXYZINE HCL Inactive ALPRAZOLAM 2 MG TABS 1 tablet by mouth three times daily as needed ALPRAZOLAM 2 MG TABS 955998 ALPRAZOLAM Inactive NEXIUM 40 MG CPDR 1 cap by mouth daily NEXIUM 40 MG CPDR ESOMEPRAZOLE MAGNESIUM Inactive Advance Directives Directive Description Start Date PERMISSION TO SHARE Vital Signs Date Name Value Unit Range Description blood pressure, diastolic - 8462-4 80 mm[Hg] [...] E&M - 3141-9 174.2 [lb_av] Weight Measured blood pressure, diastolic - 8462-4 87 mm[Hg] BP stoddard blood pressure, systolic - 8480-6 127 mm[Hg] BP sys height E&M - 8302-2 68 [in_us] Bdy height pulse rate E&M - 8867-4 93 /min Heart rate temperature E&M 97.7 [degF] Body temperature weight E&M - 3141-9 169.38 [lb_av] Weight Measured Diagnostic Results Date Name Value Unit Range Description Chart Maintenance: Hemoccult added to flowsheet - Chemistry occult blood, stool (E&M) Negative Lab Report: CBC, Comp. Metabolic Panel, Thyroid Stimulating Hormone (L), ... - Chemistry sodium, serum 138 mmol/L 235-797 0715/04/13 potassium, serum 4.9 mmol/L 3.5-5.2 chloride, serum [...] 142-424 Encounters Code Encounter Date Provider Facility CPT-[id number] Level 3 Est. Patient 13:04:06 CDT Wily [facility] CPT-83632 Level 3 Est. Patient 12:23:04 CDT Wily Gonzalez [facility] CPT-73871 Level 3 Est. Patient 15:43:10 [employer] Wily [facility] CPT-85787 Level 3 Est. Patient 16:10:54 CDT Wily Gonzalez [facility] CPT-57927 Level 3 Est. Patient 19:50:51 CDT Wily Gonzalez [facility] CPT-94293 Level 3 Est. Patient 12:02:30 [employer] Wily Gonzalez [facility] CPT-10849 Level 3 Est. Patient 12:03:11 [employer] Wily [facility] CPT-77829 Level 3 Est. Patient 12:01:41 [employer] Wily [facility] CPT-55996 Level 3 Est. Patient 11:51:24 [employer] Wily Gonzalez [facility] CPT-00840 Level 3 Est. Patient 11:58:20 [employer]IST Wily W [facility] CPT-61178 Level 3 Est. Patient 08:31:36 [employer] Wily [facility] CPT-30130 Level 3 Est. Patient 21:57:36 CDT Wily [facility] CPT-04742 Level 3 Est. Patient 10:49:[address] [facility] CPT-83875 Level 3 Est. Patient 11:22:[address] [facility] CPT-93548 Level 3 Est. Patient 13:49:41 CDT Esvin PAULA [facility]-06872 Level 3 Est. Patient 11:54:[address] [facility] CPT-76924 Level 3 Est. Patient 09:07:11 CDT Esvin PAULA [facility] CPT-85000 Level 3 Est. Patient 13:52:47 CDT Esvin PAULA [facility] CPT-89102 Level 3 Est. Patient 11:26:[address] [facility] CPT-04136 Level 3 Est. Patient 10:25:00 [employer] Esvin PAULA [facility] CPT-61430 Level 3 Est. Patient 11:39:11 [employer]IST Esvin PAULA [facility] CPT-86758 Level 3 Est. Patient 13:24:24 [employer]IST Esvin PAULA [facility] CPT-14009 Level 3 Est. Patient 10:26:13 DATA [employer]IST Esvin PAULA [facility]-79392 Level 3 Est. Patient 10:21:21 CDT Esvin PAULA [facility] CPT-67806 Level 3 Est. Patient 10:26:30 CDT Esvin PAULA [facility] CPT-99179 Level 3 Est. Patient 09:16:37 CDT Esvin Hudson CHAI [facility] CPT-76347 Level 3 Est. Patient 09:06:58 CDT Esvin PAULA [facility] CPT-23142 Level 3 Est. Patient 10:05:29 CDT Esvin PAULA [facility] CPT-34220 Level 3 Est. Patient 10:38:45 CDT Esvin Hudson [facility] CPT-26681 Level 3 Est. Patient 10:09:45 CDT Esvin PAULA [facility] CPT-89037 Level 3 Est. Patient 09:26:37 CDT Esvin Tristan [facility] CPT-31895 Level 3 Est. Patient 10:34:42 [employer] Esvin PAULA [facility] CPT-02582 Level 3 Est. Patient 10:45:47 [employer]IST Esvin Hudson CHAI [facility] CPT-88003 Level 3 Est. Patient 10:45:22 [employer] Esvin Hudson [facility] CPT-98823 Level 3 Est. Patient 14:18:30 [employer] Esvin Tristan [facility] CPT-82980 Level 3 Est. Patient 13:53:29 [employer] Esvin Hudson [facility] CPT-38391 Level 3 Est. Patient 10:34:11 CDT Esvin Tristan [facility] Procedures Code Procedure Name Date Entry Date Standard Description CPT-04298 Venipuncture Draw Fee 09:26:55 CDT CPT-25456 Venipuncture Draw Fee 11:55:52 CDT CPT-91010 Spec Collection and Handling Fee 09:16:37 CDT [facility]-69113 Venipuncture Draw Fee 09:16:37 CDT
--- OUTSIDE RECORDS SUMMARY | 2018-02-26 14:25 | XMS REPORT | Clinical Summary ---
Author Author Admin, E Organization [employer] Address Unknown Phone Unavailable Allergies, Adverse Reactions, [...] Generic Name NDC Status Provider Patient Instruction TRIAMCINOLONE ACETONIDE 0.1 % CREA Apply to affected area 3 times daily for up to 2 weeks TRIAMCINOLONE ACETONIDE 37904854429 Active Wily Gonzalez DO Active [id number] 167-83-8 MG TABS 1 tab po daily [id number]-[id number] 90753766930 No Longer Active Wily Gonzalez DO Active NYSTATIN 997627 UNIT/GM CREA apply to rash TID PRN NYSTATIN 91619184026 No Longer Active Wily Gonzalez DO Active POLY-IRON 150 150 MG CAPS 1 tab po bid POLYSACCHARIDE IRON COMPLEX 72881560601 No Longer Active Wily Gonzalez DO Active FLONASE ALLERGY RELIEF 50 MCG/ACT NASAL SUSP 2 sprays each nostril every day FLUTICASONE PROPIONATE 90207732438 Active Jodi Lucas APRN Active CLEMASTINE FUMARATE 1.34 MG ORAL TABS 1 tab PO BID CLEMASTINE FUMARATE 46570538465 No Longer Active Wily Gonzalze DO Active FLOMAX 0.4 MG CAPS 1 capsule in the evening for night time urination. TAMSULOSIN HCL 41406273040 No Longer Active Wily Gonzalez DO Active PROTONIX 40 MG TBEC 1 po daily PANTOPRAZOLE SODIUM 65464616607 Alvarez Yeung Active HYDROXYZINE HCL 25 MG TAB 1 two times a day as needed for anxiety HYDROXYZINE HCL 75033042048 No Longer Active Wily Gonzalez DO Active ANUSOL-HC 25 MG SUPPOSITORY 1 rectally every 12 hours for irritation HYDROCORTISONE NAEL (RECTAL) 45603152330 No Longer Active Wily Gonzalez DO Active HYDROXYZINE HCL 25 MG TABS Take one (1) tablet by mouth twice a day HYDROXYZINE HCL 75247670010 No Longer Active Wily Gonzalez DO Active ZIAC 2.5-6.25 MG TAB 1 tablet daily for high blood pressure 10/27 BISOPROLOL-HCTZ 74958167579 No Longer Active Wily Gonzalez DO Active ZIAC 2.5-6.25 MG TAB 1 tablet every morning for high blood pressure BISOPROLOL-HCTZ 69014264645 No Longer Active Wily Gonzalez DO Active AMOXICILLIN 500 MG CAPS Take one (1) tablet by mouth three times a day 05/05 AMOXICILLIN 35735380936 No Longer Active Wily Gonzalez DO Active MORPHINE SULFATE ER 100 MG CR-TABS Take one (1) tablet by mouth twice a day MORPHINE SULFATE 74518399857 No Longer Active Wily Gonzalez DO Active MORPHINE SULFATE ER 100 MG [id number] 1 capsule twice daily for chronic pain MORPHINE SULFATE 38272284128 Active Agnieszka Gamal Active CIALIS 10 MG TABS 1 every 72 hours as needed TADALAFIL 85282148675 No Longer Active Esvin PAULA Active FLONASE 50 MCG/ACT SUSP 2 SPRAY EACH NARE DAILY FLUTICASONE PROPIONATE 92774758515 No Longer Active Esvin PAULA Active CYCLOBENZAPRINE HCL 10 MG TABS Take one (1) tablet by mouth three times a day CYCLOBENZAPRINE HCL 65483225733 Active Agnieszka Yeung Active OPANA ER (CRUSH RESISTANT) 40 MG [id number] Take one (1) tablet by mouth twice a day OXYMORPHONE HCL 04804209362 No Longer Active Esvin PAULA Active PROAIR HFA 108 (90 BASE) MCG/ACT AERS 2 puffs every four hours as needed ALBUTEROL SULFATE 20753781093 No Longer Active Esvin PAULA Active CLEARLAX POWD 17gm q day prn constipation POLYETHYLENE GLYCOL 3350 15722008509 Active Wily Gonzalez DO Active MORPHINE SULFATE ER 100 MG [id number] Take one (1) tablet by mouth twice a day MORPHINE SULFATE 19846995162 No Longer Active Esvin PAULA Active FLEXERIL 10 MG TAB 1 tablet by mouth 3 times daily as needed CYCLOBENZAPRINE HCL 28288172021 No Longer Active Esvin PAULA Active CELEBREX 200 MG CAPS 1 tablet by mouth twice daily with meals CELECOXIB 39367888761 No Longer Active Esvin PAULA Active NEXIUM 40 MG CPDR 1 cap daily ESOMEPRAZOLE MAGNESIUM 49332815225 No Longer Active Esvin PAULA Active MOBIC 15 MG TABS 1 tab daily MELOXICAM 17298232318 No Longer Active Esvin PAULA Active LISINOPRIL 20 MG TABS Take 1 tablet by mouth daily LISINOPRIL 27453066163 No Longer Active Esvin PAULA Active DICLOFENAC SODIUM 50 MG TBEC 1 tablet by mouth four times daily DICLOFENAC SODIUM 06550816021 No Longer Active Paula Cooney RN Active VERAMYST 27.5 MCG/SPRAY SUSP 2 spray each nare daily FLUTICASONE FUROATE 40484172167 No Longer Active Megan Vargas RN Active ENDOCET 10-325 MG TABS Take one (1) tablet by mouth three times a day OXYCODONE-ACETAMINOPHEN 66727437583 Active Agnieszka Yeung Active ALPRAZOLAM 2 MG TABS Take one (1) tablet by mouth three times a day ALPRAZOLAM 57265314800 Active Agnieszkafreida Yeung Active NEXIUM 40 MG CPDR 1 cap by mouth daily ESOMEPRAZOLE MAGNESIUM 38224084117 No Longer Active Esvin PAULA Active ALPRAZOLAM 2 MG TABS 1 tablet by mouth three times daily as needed ALPRAZOLAM 14501739917 No Longer Active Esvin PAULA Active HYDROXYZINE HCL 25 MG TAB take 1 every 4-6 hours as needed 07/01 HYDROXYZINE HCL 29480051414 No Longer Active Esvin PAULA Active ENDOCET 10-325 MG TABS 1 by mouth twice a day OXYCODONE-ACETAMINOPHEN 48405206598 No Longer Active Esvin PAULA Active MS CONTIN 100 MG [id number]-RWM 1 by mouth twice a day MORPHINE SULFATE 70711732326 No Longer Active Esvin PAULA Active SUDAFED 30 MG TAB 1-2 every 4-6 hours as needed PSEUDOEPHEDRINE HCL 35156523517 Active Marylou Melissa RPT,RMA Active VERAMYST 27.5 MCG/SPRAY SUSP 2 spray each nare daily VERAMYST 27.5 MCG/SPRAY SUSP FLUTICASONE FUROATE Inactive DICLOFENAC SODIUM 50 MG TBEC 1 tablet by mouth four times daily DICLOFENAC SODIUM 50 MG TBEC 123090 DICLOFENAC SODIUM Inactive LISINOPRIL 20 MG TABS Take 1 tablet by mouth daily LISINOPRIL 20 MG TABS 585384 LISINOPRIL Inactive MOBIC 15 MG TABS 1 tab daily MOBIC 15 MG TABS 503143 MELOXICAM Inactive NEXIUM 40 MG CPDR 1 cap daily NEXIUM 40 MG CPDR 581360 ESOMEPRAZOLE MAGNESIUM Inactive CELEBREX 200 MG CAPS 1 tablet by mouth twice daily with meals CELEBREX 200 MG CAPS 006734 CELECOXIB Inactive FLEXERIL 10 MG TAB 1 [...] a day 05/05 AMOXICILLIN 500 MG CAPS 654011 AMOXICILLIN Inactive ZIAC 2.5-6.25 MG TAB 1 tablet every morning for high blood pressure ZIAC 2.5-6.25 MG TAB 535103 BISOPROLOL-HCTZ Inactive ZIAC 2.5-6.25 MG TAB 1 tablet daily for high blood pressure 10/27 ZIAC 2.5-6.25 MG TAB 999453 BISOPROLOL-HCTZ Inactive HYDROXYZINE HCL 25 MG TABS Take one (1) tablet by mouth twice a day HYDROXYZINE HCL 25 MG TABS 753434 HYDROXYZINE HCL Inactive ANUSOL-HC 25 MG SUPPOSITORY 1 rectally every 12 hours for irritation ANUSOL-HC 25 MG SUPPOSITORY 4174114 HYDROCORTISONE NAEL (RECTAL ) Inactive HYDROXYZINE HCL 25 MG TAB 1 two times a day as needed for anxiety HYDROXYZINE HCL 25 MG TAB 547931 HYDROXYZINE HCL Inactive FLOMAX 0.4 MG CAPS 1 capsule in the evening for night time urination. FLOMAX 0.4 MG CAPS 258264 TAMSULOSIN HCL Inactive CLEMASTINE FUMARATE 1.34 MG ORAL TABS 1 tab PO BID CLEMASTINE FUMARATE 1.34 MG ORAL TABS 088125 CLEMASTINE FUMARATE Inactive POLY-IRON 150 150 MG CAPS 1 tab po bid POLY-IRON 150 150 MG CAPS POLYSACCHARIDE IRON COMPLEX Inactive NYSTATIN 273737 UNIT/GM CREA apply to rash TID PRN NYSTATIN 539884 UNIT/GM CREA 599939 NYSTATIN Inactive SHDWQTH-XSPWQHQAL-BSCI 167-83-8 MG TABS 1 tab po daily IZNJCLO-FPEHNFFEI-PZUC 167-83-8 MG TABS LFHPQUP-SFFFJRJLZ-CXWQ Inactive MS CONTIN 100 MG UO00F-OEE 1 by mouth twice a day MS CONTIN 100 MG [id number] MORPHINE SULFATE Inactive ENDOCET 10-325 MG TABS 1 by mouth twice a day ENDOCET 10-325 MG TABS 6335696 OXYCODONE-ACETAMINOPHEN Inactive HYDROXYZINE HCL 25 MG TAB take 1 every 4-6 hours as needed 07/01 HYDROXYZINE HCL 25 MG TAB 066803 HYDROXYZINE HCL Inactive ALPRAZOLAM 2 MG TABS 1 tablet by mouth three times daily as needed ALPRAZOLAM 2 MG TABS 308329 ALPRAZOLAM Inactive NEXIUM 40 MG CPDR 1 cap by mouth daily NEXIUM 40 MG CPDR 033170 ESOMEPRAZOLE MAGNESIUM Inactive Advance Directives Directive Description [...] E&M - [id number] [lb_av] Weight Measured Diagnostic Results Date Name Value Unit Range Description Lab Report: CBC - Hematology mean corpuscular hemoglobin, RBC 31.1 pg 27.0-31.2 mean corpuscular hemoglobin concentration, RBC 33.3 G/DL % 31.8- 35.4 red blood cell distribution width 14.6 % 11.6-14.8 platelet count 269 10^3/MM^3 10*3/mm3 989-502 9497/03/25 mean corpuscular volume, RBC 93 fL 80-97 hematocrit, blood 41.9 % 41.0-53.0 hemoglobin, blood 14.0 g/dL 13.5-17.5 erythrocyte (RBC) count 4.49 10^6/MM^3 10*6/mm3 4.69-6.13 leukocyte count, blood 5.7 10^3/MM^3 10*3/mm3 4.6-10.2 Lab Report: Comp. Metabolic Panel, Lipid Panel, Thyroid Stimulating Horm ... - Chemistry sodium, serum 140 mmol/L 143-192 1455/03/25 creatinine, serum 0.94 mg/dL 0.55-1.30 alanine aminotransferase (SGPT), serum 23 U/L 12-78 aspartate aminotransferase (SGOT), serum 21 U/L 15-37 calcium, serum 8.9 mg/dL 8.5-10.1 bilirubin, serum, total 0.30 mg/dL 0.00-1.00 cholesterol, serum 169 mg/dL 614-150 5874/03/25 triglyceride, serum, fasting 143 mg/dL 30-200 HDL cholesterol, serum 61 mg/dL 32-96 LDL cholesterol, serum 79 mg/dL 0-130 TSH 1.28 m[iU]/mL 0.36-3.74 carbon dioxide, venous blood 31.3 mmol/L 21.0-32.0 potassium, serum 4.0 mmol/L 3.5-5.2 chloride, serum 101 mmol/L 98-107 blood glucose 96 mg/dL 65-110 urea nitrogen, blood 7 mg/dL 7-18 Lab Report: UADIP W/MICRO, AUTO - Chemistry [...] 5.0-8.5 Encounters Code Encounter Date Provider Facility CPT-25222 Level 3 Est. Patient 11:07:48 CDT Wily Zhang [place] CPT-04985 Level 3 Est. Patient 11:24:24 CDT Wily Zhang [place] CPT-71954 Level 3 Est. Patient 15:19:54 [employer] Wily Gonzalez [facility] CPT-96312 Level 3 Est. Patient 10:04:45 CDT Wily Gonzalez [facility] CPT-40576 Level 3 Est. Patient 13:04:06 CDT Wily Gonzalez [facility] CPT-65944 Level 3 Est. Patient 12:23:04 CDT Wily Gonzalez [facility] CPT-67553 Level 3 Est. Patient 15:43:10 [employer] Wily Gonzalez [facility] CPT-10771 Level 3 Est. Patient 16:10:54 CDT Wily Gonzalez [facility] CPT-61479 Level 3 Est. Patient 19:50:51 CDT Wily Gonzalez [facility] CPT-09912 Level 3 Est. Patient 12:02:30 [employer] Wily Gonzalez [facility] CPT-64527 Level 3 Est. Patient 12:03:11 [employer] Wily Gonzalez [facility] CPT-10146 Level 3 Est. Patient 12:01:41 [employer] Wily Gonzalez [facility] CPT-63043 Level 3 Est. Patient 11:51:24 [employer] Wliy Gonzalez [facility] CPT-77665 Level 3 Est. Patient 11:58:20 [employer] Wily Gonzalez DO [facility] CPT-84536 Level 3 Est. Patient 08:31:36 [employer] Wily Gonzalez [facility] CPT-94406 Level 3 Est. Patient 21:57:36 CDT Wily Gonzalez [facility] CPT-30679 Level 3 Est. Patient 10:49:58 CDT Esvin Hudson [facility] CPT-91145 Level 3 Est. Patient 11:22:52 CDT Esvin PAULA [facility] CPT-91667 Level 3 Est. Patient 13:49:41 CDT Esvin PAULA [facility] CPT-62032 Level 3 Est. Patient 11:54:53 CDT Esvin PAULA [facility] CPT-70042 Level 3 Est. Patient 09:07:11 CDT Esvin PAULA [facility] CPT-23751 Level 3 Est. Patient 13:52:47 CDT Esvin PAULA [facility] CPT-18944 Level 3 Est. Patient 11:26:46 CDT Esvin PAULA [facility] CPT-98447 Level 3 Est. Patient 10:25:00 [employer] Esvin Hudson CHAI [facility] CPT-71216 Level 3 Est. Patient 11:39:11 [employer] Esvin PAULA [facility] CPT-17600 Level 3 Est. Patient 13:24:24 [employer] Esvin PAULA [facility] CPT-60322 Level 3 Est. Patient 10:26:13 [employer] Esvin PAULA [facility] CPT-11025 Level 3 Est. Patient 10:21:21 CDT Esvin PAULA [facility] CPT-37139 Level 3 Est. Patient 10:26:30 CDT Esvin PAULA [facility] CPT-95214 Level 3 Est. Patient 09:16:37 CDT Esvin Hudson [facility]-87254 Level 3 Est. Patient 09:06:58 CDT Esvin PAULA [facility] CPT-54591 Level 3 Est. Patient 10:05:29 CDT Esvin Hudson CHAI [facility] CPT-41245 Level 3 Est. Patient 10:38:45 CDT Esvin Tristan [facility] CPT-18839 Level 3 Est. Patient 10:09:45 CDT Esvin Tristan [facility] CPT-70399 Level 3 Est. Patient 09:26:37 CDT Esvin Tristan [facility] CPT-73178 Level 3 Est. Patient 10:34:42 [employer] Esvin Hudson [facility] CPT-27583 Level 3 Est. Patient 10:45:47 [employer] Esvin Hudson [facility] CPT-13910 Level 3 Est. Patient 10:45:22 [employer] Esvin Hudson [facility] CPT-15528 Level 3 Est. Patient 14:18:30 [employer] Esvin Tristan [facility] CPT-61417 Level 3 Est. Patient 13:53:29 [employer] Esvin Hudson [facility] CPT-51379 Level 3 Est. Patient 10:34:11 CDT Esvin [place] [facility] Procedures Code Procedure Name Date Entry Date Standard Description CPT-21747 Venipuncture Draw Fee 09:26:55 CDT CPT-12316 Venipuncture Draw Fee 11:55:52 CDT CPT-32114 Spec Collection and Handling Fee 09:16:37 CDT CPT-74622 Venipuncture Draw Fee 09:16:37 CDT
--- OUTSIDE RECORDS SUMMARY | 2018-02-26 14:26 | XMS REPORT | Clinical Summary ---
Author Author Admin, E Organization [employer] Address Unknown Phone Unavailable Allergies, Adverse Reactions, [...] for up to 2 weeks TRIAMCINOLONE ACETONIDE 13036345522 Active Wily Gonzalez DO Active [id number] 167-83-8 MG TABS 1 tab po daily LUDLYNJ-[id number]-OPPL [id number] No Longer Active Wily Gonzalez DO Active NYSTATIN 689771 UNIT/GM CREA apply to rash TID PRN NYSTATIN 47595408119 No Longer Active Wily Gonzalez DO Active POLY-IRON 150 150 MG CAPS 1 tab po bid POLYSACCHARIDE IRON COMPLEX 05535065611 No Longer Active Wily Gonzalez DO Active FLONASE ALLERGY RELIEF 50 MCG/ACT NASAL SUSP 2 sprays each nostril every day FLUTICASONE PROPIONATE 96639560901 Active Jodi Lucas APRN Active CLEMASTINE FUMARATE 1.34 MG ORAL TABS 1 tab PO BID CLEMASTINE FUMARATE 82017170107 No Longer Active Wily Gonzalez DO Active FLOMAX 0.4 MG CAPS 1 capsule in the evening for night time urination. TAMSULOSIN HCL 07422306790 No Longer Active Wily Gonzalez DO Active PROTONIX 40 MG TBEC 1 po daily PANTOPRAZOLE SODIUM 54984077175 Alvarez Yeung Active HYDROXYZINE HCL 25 MG TAB 1 two times a day as needed for anxiety HYDROXYZINE HCL 52506482138 No Longer Active Wily Gonzalez DO Active ANUSOL-HC 25 MG SUPPOSITORY 1 rectally every 12 hours for irritation HYDROCORTISONE NAEL (RECTAL) 50932376839 No Longer Active Wily Gonzalez DO Active HYDROXYZINE HCL 25 MG TABS Take one (1) tablet by mouth twice a day HYDROXYZINE HCL 71777568898 No Longer Active Wily Gonzalez DO Active ZIAC 2.5-6.25 MG TAB 1 tablet daily for high blood pressure 10/27 BISOPROLOL-HCTZ 83776531438 No Longer Active Wily Gonzalez DO Active ZIAC 2.5-6.25 MG TAB 1 tablet every morning for high blood pressure BISOPROLOL-HCTZ 04247969972 No Longer Active Wily Gonzalez DO Active AMOXICILLIN 500 MG CAPS Take one (1) tablet by mouth three times a day 05/05 AMOXICILLIN 17038568003 No Longer Active Wily Gonzalez DO Active MORPHINE SULFATE ER 100 MG CR-TABS Take one (1) tablet by mouth twice a day MORPHINE SULFATE 96711306349 No Longer Active Wily Gonzalez DO Active MORPHINE SULFATE ER 100 MG [id number] 1 capsule twice daily for chronic pain MORPHINE SULFATE 00471502440 Active Agnieszka Gamal Active CIALIS 10 MG TABS 1 every 72 hours as needed TADALAFIL 87240062357 No Longer Active Esvin PAULA Active FLONASE 50 MCG/ACT SUSP 2 SPRAY EACH NARE DAILY FLUTICASONE PROPIONATE 31905154608 No Longer Active Esvin PAULA Active CYCLOBENZAPRINE HCL 10 MG TABS Take one (1) tablet by mouth three times a day CYCLOBENZAPRINE HCL 65719885118 Active Agnieszka Yeung Active OPANA ER (CRUSH RESISTANT) 40 MG EB49X-GWF Take one (1) tablet by mouth twice a day OXYMORPHONE HCL 55448507555 No Longer Active Esvin PAULA Active PROAIR HFA 108 (90 BASE) MCG/ACT AERS 2 puffs every four hours as needed ALBUTEROL SULFATE 95808112001 No Longer Active Esvin PAULA Active CLEARLAX POWD 17gm q day prn constipation POLYETHYLENE GLYCOL 3350 45809343612 Active Wily Gonzalez DO Active MORPHINE SULFATE ER 100 MG GS74O-ESC Take one (1) tablet by mouth twice a day MORPHINE SULFATE 51153889724 No Longer Active Esvin PAULA Active FLEXERIL 10 MG TAB 1 tablet by mouth 3 times daily as needed CYCLOBENZAPRINE HCL 19423921170 No Longer Active Esvin PAULA Active CELEBREX 200 MG CAPS 1 tablet by mouth twice daily with meals CELECOXIB 29987742654 No Longer Active Esvin PAULA Active NEXIUM 40 MG CPDR 1 cap daily ESOMEPRAZOLE MAGNESIUM 90726188311 No Longer Active Esvin PAULA Active MOBIC 15 MG TABS 1 tab daily MELOXICAM 29074653823 No Longer Active Esvin PAULA Active LISINOPRIL 20 MG TABS Take 1 tablet by mouth daily LISINOPRIL 90782700851 No Longer Active Esvin PAULA Active DICLOFENAC SODIUM 50 MG TBEC 1 tablet by mouth four times daily DICLOFENAC SODIUM 12032681400 No Longer Active Paula Cooney RN Active VERAMYST 27.5 MCG/SPRAY SUSP 2 spray each nare daily FLUTICASONE FUROATE 37123198221 No Longer Active Megan Vargas RN Active ENDOCET 10-325 MG TABS Take one (1) tablet by mouth three times a day OXYCODONE-ACETAMINOPHEN 03035756875 Active Agnieszka Yeung Active ALPRAZOLAM 2 MG TABS Take one (1) tablet by mouth three times a day ALPRAZOLAM 82680034076 Active Agnieszkafredia Yeung Active NEXIUM 40 MG CPDR 1 cap by mouth daily ESOMEPRAZOLE MAGNESIUM 24187031382 No Longer Active Esvin PAULA Active ALPRAZOLAM 2 MG TABS 1 tablet by mouth three times daily as needed ALPRAZOLAM 75411799579 No Longer Active Esvin PAULA Active HYDROXYZINE HCL 25 MG TAB take 1 every 4-6 hours as needed 07/01 HYDROXYZINE HCL 94589036868 No Longer Active Esvni PAULA Active ENDOCET 10-325 MG TABS 1 by mouth twice a day OXYCODONE-ACETAMINOPHEN 00100935858 No Longer Active Esvin PAULA Active MS CONTIN 100 MG [id number]-GMP 1 by mouth twice a day MORPHINE SULFATE 61667552174 No Longer Active Esvin PAULA Active SUDAFED 30 MG TAB 1-2 every 4-6 hours as needed PSEUDOEPHEDRINE HCL 07118922717 Active Marylou Melissa RPT,RMA Active VERAMYST 27.5 MCG/SPRAY SUSP 2 spray each nare daily VERAMYST 27.5 MCG/SPRAY SUSP FLUTICASONE FUROATE Inactive DICLOFENAC SODIUM 50 MG TBEC 1 tablet by mouth four times daily DICLOFENAC SODIUM 50 MG TBEC 584833 DICLOFENAC SODIUM Inactive LISINOPRIL 20 MG TABS Take 1 tablet by mouth daily LISINOPRIL 20 MG TABS 980869 LISINOPRIL Inactive MOBIC 15 MG TABS 1 tab daily MOBIC 15 MG TABS 270975 MELOXICAM Inactive NEXIUM 40 MG CPDR 1 cap daily NEXIUM 40 MG CPDR 024902 ESOMEPRAZOLE MAGNESIUM Inactive CELEBREX 200 MG CAPS 1 tablet by mouth twice daily with meals CELEBREX 200 MG CAPS 429905 CELECOXIB Inactive FLEXERIL 10 MG TAB 1 [...] a day 05/05 AMOXICILLIN 500 MG CAPS 194508 AMOXICILLIN Inactive ZIAC 2.5-6.25 MG TAB 1 tablet every morning for high blood pressure ZIAC 2.5-6.25 MG TAB 291266 BISOPROLOL-HCTZ Inactive ZIAC 2.5-6.25 MG TAB 1 tablet daily for high blood pressure 10/27 ZIAC 2.5-6.25 MG TAB 161518 BISOPROLOL-HCTZ Inactive HYDROXYZINE HCL 25 MG TABS Take one (1) tablet by mouth twice a day HYDROXYZINE HCL 25 MG TABS 087227 HYDROXYZINE HCL Inactive ANUSOL-HC 25 MG SUPPOSITORY 1 rectally every 12 hours for irritation ANUSOL-HC 25 MG SUPPOSITORY 0656309 HYDROCORTISONE NAEL (RECTAL ) Inactive HYDROXYZINE HCL 25 MG TAB 1 two times a day as needed for anxiety HYDROXYZINE HCL 25 MG TAB 665751 HYDROXYZINE HCL Inactive FLOMAX 0.4 MG CAPS 1 capsule in the evening for night time urination. FLOMAX 0.4 MG CAPS 205689 TAMSULOSIN HCL Inactive CLEMASTINE FUMARATE 1.34 MG ORAL TABS 1 tab PO BID CLEMASTINE FUMARATE 1.34 MG ORAL TABS 548619 CLEMASTINE FUMARATE Inactive POLY-IRON 150 150 MG CAPS 1 tab po bid POLY-IRON 150 150 MG CAPS POLYSACCHARIDE IRON COMPLEX Inactive NYSTATIN 523685 UNIT/GM CREA apply to rash TID PRN NYSTATIN 649040 UNIT/GM CREA 921853 NYSTATIN Inactive NZGLKDS-TZDPVAFCF-DNTR 167-83-8 MG TABS 1 tab po daily RVPWNOM-TJHZKLRGQ-QHBM 167-83-8 MG TABS XAVIRUN-MFAHRCDSD-EMJD Inactive MS CONTIN 100 MG AM40F-RRN 1 by mouth twice a day MS CONTIN 100 MG [id number] MORPHINE SULFATE Inactive ENDOCET 10-325 MG TABS 1 by mouth twice a day ENDOCET 10-325 MG TABS 3463500 OXYCODONE-ACETAMINOPHEN Inactive HYDROXYZINE HCL 25 MG TAB take 1 every 4-6 hours as needed 07/01 HYDROXYZINE HCL 25 MG TAB 990095 HYDROXYZINE HCL Inactive ALPRAZOLAM 2 MG TABS 1 tablet by mouth three times daily as needed ALPRAZOLAM 2 MG TABS 897633 ALPRAZOLAM Inactive NEXIUM 40 MG CPDR 1 cap by mouth daily NEXIUM 40 MG CPDR 668456 ESOMEPRAZOLE MAGNESIUM Inactive Advance Directives Directive Description [...] ... - Chemistry sodium, serum 140 mmol/L 229-117 0012/03/25 carbon dioxide, venous blood 31.3 mmol/L 21.0-32.0 potassium, serum 4.0 mmol/L 3.5-5.2 chloride, serum 101 mmol/L 98-107 blood glucose 96 mg/dL 65-110 urea nitrogen, blood 7 mg/dL 7-18 creatinine, serum 0.94 mg/dL 0.55-1.30 alanine aminotransferase (SGPT), serum 23 U/L 12-78 aspartate aminotransferase (SGOT), serum 21 U/L 15-37 calcium, serum 8.9 mg/dL 8.5-10.1 bilirubin, serum, total 0.30 mg/dL 0.00-1.00 cholesterol, serum 169 mg/dL 559-043 0993/03/25 triglyceride, serum, fasting 143 mg/dL 30-200 HDL [...] 5.0-8.5 Encounters Code Encounter Date Provider Facility [id number] Level 3 Est. Patient 11:07:48 CDT Wily Zhang [facility] CPT-96501 Level 3 Est. Patient 11:24:24 CDT Wily Zhang [facility] CPT-75678 Level 3 Est. Patient 15:19:54 [employer] Wily Gonzalez [facility] CPT-61456 Level 3 Est. Patient 10:04:45 CDT Wily Gonzalez [facility] CPT-89247 Level 3 Est. Patient 13:04:06 CDT Wily Gonzalez [facility] CPT-91009 Level 3 Est. Patient 12:23:04 CDT Wily Gonzalez [facility] CPT-19373 Level 3 Est. Patient 15:43:10 [employer] Wily Gonzalez [facility] CPT-18610 Level 3 Est. Patient 16:10:54 CDT Wily Gonzalez [facility] CPT-83390 Level 3 Est. Patient 19:50:51 CDT Wily Gonzalez [facility] CPT-12603 Level 3 Est. Patient 12:02:30 [employer] Wily Gnozalez [facility] CPT-92483 Level 3 Est. Patient 12:03:11 [employer] WORK[employer] Wily Gonzalez [facility] CPT-43514 Level 3 Est. Patient 12:01:41 [employer] Wily Gonzalez [facility] CPT-89110 Level 3 Est. Patient 11:51:24 [employer] WORKER Wily Gonzalez [facility] CPT-15410 Level 3 Est. Patient 11:58:20 [employer] SUR[employer] WORKER Wily Gonzalez DO [facility] CPT-47045 Level 3 Est. Patient 08:31:36 [employer] Wily Gonzalez [facility] CPT-57800 Level 3 Est. Patient 21:57:36 CDT Wily Gonzalez [facility] CPT-49668 Level 3 Est. Patient 10:49:58 CDT Esvin Hudson [facility] CPT-45647 Level 3 Est. Patient 11:22:52 CDT Esvin PAULA [facility] CPT-02247 Level 3 Est. Patient 13:49:41 CDT Esvin PAULA [facility] CPT-45371 Level 3 Est. Patient 11:54:53 CDT Esvin PAULA [facility] CPT-85323 Level 3 Est. Patient 09:07:11 CDT Esvin PAULA [facility] CPT-87419 Level 3 Est. Patient 13:52:47 CDT Esvin PAULA [facility] CPT-56606 Level 3 Est. Patient 11:26:46 CDT Esvin PAULA [facility] CPT-12401 Level 3 Est. Patient 10:25:00 [employer] Esvin Hudson [facility] CPT-22967 Level 3 Est. Patient 11:39:11 [employer]IT SUR[employer] WORKER Esvin PAULA [facility] CPT-74003 Level 3 Est. Patient 13:24:24 [employer]IT SUR[employer] WORKER Esvin PAULA [facility] CPT-23844 Level 3 Est. Patient 10:26:13 [employer] WORKER Esvin PAULA [facility] CPT-04510 Level 3 Est. Patient 10:21:21 CDT Esvin PAULA [facility] CPT-79162 Level 3 Est. Patient 10:26:30 CDT Esvin PAULA [facility] CPT-40840 Level 3 Est. Patient 09:16:37 CDT Esvin Hudson [facility]-24957 Level 3 Est. Patient 09:06:58 CDT Esvin PAULA [facility] CPT-93150 Level 3 Est. Patient 10:05:29 CDT Esvin Hudson [facility] CPT-64409 Level 3 Est. Patient 10:38:45 CDT Esvin Tristan [facility] CPT-46529 Level 3 Est. Patient 10:09:45 CDT Esvin Tristan [facility] CPT-49932 Level 3 Est. Patient 09:26:37 CDT Esvin Tristan [facility] CPT-52515 Level 3 Est. Patient 10:34:42 [employer] Esvin Hudson [facility] CPT-40537 Level 3 Est. Patient 10:45:47 [employer] Esvin Hudson [facility] CPT-73512 Level 3 Est. Patient 10:45:22 [employer] Esvin Hudson [facility] CPT-89764 Level 3 Est. Patient 14:18:30 [employer] Esvin Tristan [facility] CPT-13872 Level 3 Est. Patient 13:53:29 [employer] Esvin Hudson [facility] CPT-59994 Level 3 Est. Patient 10:34:11 CDT Esvin [place] Procedures Code Procedure Name Date Entry Date Standard Description CPT-60810 Venipuncture Draw Fee 09:26:55 CDT CPT-14844 Venipuncture Draw Fee 11:55:52 CDT CPT-76785 Spec Collection and Handling Fee 09:16:37 CDT CPT-25092 Venipuncture Draw Fee 09:16:37 CDT
--- OUTSIDE RECORDS SUMMARY | 2018-02-26 14:27 | XMS REPORT | Clinical Summary ---
Author Author Admin, E Organization [facility] Address Unknown Phone Unavailable Allergies, Adverse Reactions, [...] Active Tiffanie Bravo LRT Tobacco use disorder HYPERTENSION ICD-401.9 Inactive Wily Vicente Gonzalez ANKLE PAIN ICD-719.47 Inactive Wily Gonzalez DO 05/08 FH DIABETES ICD-V18.0 Inactive Wily Gonzalez DO ANEMIA ICD-285.9 Inactive Wily Vicente Gonzalez DO Tinea corporis ICD-110.5 Inactive Wily Gonzalez DO Tinea corporis ICD-110.5 Inactive Wily Gonzalez DO Hemorrhoids ICD-455.6 Inactive Wily Gonzalez DO 05/08 Nocturia ICD-788.43 Inactive Wily Vicente Gonzalez U T I ICD-599.0 Inactive Wily Vicente Gonzalez DO U R I ICD-465.9 Inactive Wily Gonzalez DO Medication List Medication Instructions Start Date Stop Date Generic Name NDC Status Provider Patient Instruction CHANTIX 1 MG TABS 1 twice a day VARENICLINE TARTRATE 70150926862 Active Wily Gonzalez DO Active TRIAMCINOLONE ACETONIDE 0.1 % CREA Apply to affected area 3 times daily for up to 2 weeks TRIAMCINOLONE ACETONIDE 29629392948 Active Wily Gonzalez DO Active [id number]-DECS 167-83-8 MG TABS 1 tab po daily [id number] 96925952030 No Longer Active Wily Gonzalez DO Active NYSTATIN 527980 UNIT/GM CREA apply to rash TID PRN NYSTATIN 53821673221 No Longer Active Wily Gonzalez DO Active POLY-IRON 150 150 MG CAPS 1 tab po bid POLYSACCHARIDE IRON COMPLEX 40191718138 No Longer Active Wily Gonzalez DO Active FLONASE ALLERGY RELIEF 50 MCG/ACT NASAL SUSP 2 sprays each nostril every day FLUTICASONE PROPIONATE 18239394482 Active Jodi Lucas APRN Active CLEMASTINE FUMARATE 1.34 MG ORAL TABS 1 tab PO BID CLEMASTINE FUMARATE 17985888022 No Longer Active Wily Gonzalez DO Active FLOMAX 0.4 MG CAPS 1 capsule in the evening for night time urination. TAMSULOSIN HCL 95684871917 No Longer Active Wily Gonzalez DO Active PROTONIX 40 MG TBEC 1 po daily PANTOPRAZOLE SODIUM 43256719477 Active Agnieszka Yeung Active HYDROXYZINE HCL 25 MG TAB 1 two times a day as needed for anxiety HYDROXYZINE HCL 86285116641 No Longer Active Wily Gonzalez DO Active ANUSOL-HC 25 MG SUPPOSITORY 1 rectally every 12 hours for irritation HYDROCORTISONE NAEL (RECTAL) 01195246006 No Longer Active Wily Gonzalez DO Active HYDROXYZINE HCL 25 MG TABS Take one (1) tablet by mouth twice a day HYDROXYZINE HCL 26360549511 No Longer Active Wily Gonzalez DO Active ZIAC 2.5-6.25 MG TAB 1 tablet daily for high blood pressure 10/27 BISOPROLOL-HCTZ 72654855035 No Longer Active Wily Gonzalez DO Active ZIAC 2.5-6.25 MG TAB 1 tablet every morning for high blood pressure BISOPROLOL-HCTZ 09990508181 No Longer Active Wily Gonzalez DO Active AMOXICILLIN 500 MG CAPS Take one (1) tablet by mouth three times a day 05/05 AMOXICILLIN 07622970113 No Longer Active Wily Gonzalez DO Active MORPHINE SULFATE ER 100 MG CR-TABS Take one (1) tablet by mouth twice a day MORPHINE SULFATE 76980125713 No Longer Active Wily Gonzalez DO Active MORPHINE SULFATE ER 100 MG [id number] 1 capsule twice daily for chronic pain MORPHINE SULFATE 43746808919 Active Wily Gonzalez DO Active CIALIS 10 MG TABS 1 every 72 hours as needed TADALAFIL 38786441597 No Longer Active Esvin PAULA Active FLONASE 50 MCG/ACT SUSP 2 SPRAY EACH NARE DAILY FLUTICASONE PROPIONATE 73204169382 No Longer Active Esvin PAULA Active CYCLOBENZAPRINE HCL 10 MG TABS Take one (1) tablet by mouth three times a day CYCLOBENZAPRINE HCL 36838021127 Active Agnieszka Yeung Active OPANA ER (CRUSH RESISTANT) 40 MG [id number] Take one (1) tablet by mouth twice a day OXYMORPHONE HCL 56702059808 No Longer Active Esvin PAULA Active PROAIR HFA 108 (90 BASE) MCG/ACT AERS 2 puffs every four hours as needed ALBUTEROL SULFATE 15041790802 No Longer Active Esvin PAULA Active CLEARLAX POWD 17gm q day prn constipation POLYETHYLENE GLYCOL 3350 22491773394 Active Wily Gonzalez DO Active MORPHINE SULFATE ER 100 MG [id number] Take one (1) tablet by mouth twice a day MORPHINE SULFATE 72816826471 No Longer Active Esvin PAULA Active FLEXERIL 10 MG TAB 1 tablet by mouth 3 times daily as needed CYCLOBENZAPRINE HCL 76440401259 No Longer Active Esvin PAULA Active CELEBREX 200 MG CAPS 1 tablet by mouth twice daily with meals CELECOXIB 13018789319 No Longer Active Esvin PAULA Active NEXIUM 40 MG CPDR 1 cap daily ESOMEPRAZOLE MAGNESIUM 58708098609 No Longer Active Esvin PAULA Active MOBIC 15 MG TABS 1 tab daily MELOXICAM 45436622338 No Longer Active Esvin PAULA Active LISINOPRIL 20 MG TABS Take 1 tablet by mouth daily LISINOPRIL 12585118555 No Longer Active Esvin PAULA Active DICLOFENAC SODIUM 50 MG TBEC 1 tablet by mouth four times daily DICLOFENAC SODIUM 34490100829 No Longer Active Paula Cooney RN Active VERAMYST 27.5 MCG/SPRAY SUSP 2 spray each nare daily FLUTICASONE FUROATE 58055281424 No Longer Active Megan Vargas RN Active ENDOCET 10-325 MG TABS Take one (1) tablet by mouth three times a day OXYCODONE-ACETAMINOPHEN 34189708140 Active Wily Gonzalez DO Active ALPRAZOLAM 2 MG TABS Take one (1) tablet by mouth three times a day ALPRAZOLAM 15018299485 Active Wily Gonzalez DO Active NEXIUM 40 MG CPDR 1 cap by mouth daily ESOMEPRAZOLE MAGNESIUM 66856626716 No Longer Active Esvin PAULA Active ALPRAZOLAM 2 MG TABS 1 tablet by mouth three times daily as needed ALPRAZOLAM 88517486697 No Longer Active Esvin PAULA Active HYDROXYZINE HCL 25 MG TAB take 1 every 4-6 hours as needed 07/01 HYDROXYZINE HCL 99682244975 No Longer Active Esvin PAULA Active ENDOCET 10-325 MG TABS 1 by mouth twice a day OXYCODONE-ACETAMINOPHEN 92041280041 No Longer Active Esvin PAULA Active MS CONTIN 100 MG [id number] 1 by mouth twice a day MORPHINE SULFATE 46018526756 No Longer Active Esvin PAULA Active SUDAFED 30 MG TAB 1-2 every 4-6 hours as needed PSEUDOEPHEDRINE HCL 17682373805 Active Marylou Melissa RPT,RMA Active VERAMYST 27.5 MCG/SPRAY SUSP 2 spray each nare daily VERAMYST 27.5 MCG/SPRAY SUSP FLUTICASONE FUROATE Inactive DICLOFENAC SODIUM 50 MG TBEC 1 tablet by mouth four times daily DICLOFENAC SODIUM 50 MG TBEC 567795 DICLOFENAC SODIUM Inactive LISINOPRIL 20 MG TABS Take 1 tablet by mouth daily LISINOPRIL 20 MG TABS 132611 LISINOPRIL Inactive MOBIC 15 MG TABS 1 tab daily MOBIC 15 MG TABS 918814 MELOXICAM Inactive NEXIUM 40 MG CPDR 1 cap daily NEXIUM 40 MG CPDR 584914 ESOMEPRAZOLE MAGNESIUM Inactive CELEBREX 200 MG CAPS 1 tablet by mouth twice daily with meals CELEBREX 200 MG CAPS 515927 CELECOXIB Inactive FLEXERIL 10 MG TAB 1 [...] a day 05/05 AMOXICILLIN 500 MG CAPS 235154 AMOXICILLIN Inactive ZIAC 2.5-6.25 MG TAB 1 tablet every morning for high blood pressure ZIAC 2.5-6.25 MG TAB 059904 BISOPROLOL-HCTZ Inactive ZIAC 2.5-6.25 MG TAB 1 tablet daily for high blood pressure 10/27 ZIAC 2.5-6.25 MG TAB 926145 BISOPROLOL-HCTZ Inactive HYDROXYZINE HCL 25 MG TABS Take one (1) tablet by mouth twice a day HYDROXYZINE HCL 25 MG TABS 644059 HYDROXYZINE HCL Inactive ANUSOL-HC 25 MG SUPPOSITORY 1 rectally every 12 hours for irritation ANUSOL-HC 25 MG SUPPOSITORY 7788794 HYDROCORTISONE NAEL (RECTAL ) Inactive HYDROXYZINE HCL 25 MG TAB 1 two times a day as needed for anxiety HYDROXYZINE HCL 25 MG TAB 622473 HYDROXYZINE HCL Inactive FLOMAX 0.4 MG CAPS 1 capsule in the evening for night time urination. FLOMAX 0.4 MG CAPS 171909 TAMSULOSIN HCL Inactive CLEMASTINE FUMARATE 1.34 MG ORAL TABS 1 tab PO BID CLEMASTINE FUMARATE 1.34 MG ORAL TABS 293211 CLEMASTINE FUMARATE Inactive POLY-IRON 150 150 MG CAPS 1 tab po bid POLY-IRON 150 150 MG CAPS POLYSACCHARIDE IRON COMPLEX Inactive NYSTATIN 373853 UNIT/GM CREA apply to rash TID PRN NYSTATIN 362193 UNIT/GM CREA 468983 NYSTATIN Inactive [id number] 167-83-8 MG TABS 1 tab po daily [id number] 167-83-8 MG TABS JBPSISG-[id number]-CTBW Inactive MS CONTIN 100 MG [id number] 1 by mouth twice a day MS CONTIN 100 MG [id number] MORPHINE SULFATE Inactive ENDOCET 10-325 MG TABS 1 by mouth twice a day ENDOCET 10-325 MG TABS 3094712 OXYCODONE-ACETAMINOPHEN Inactive HYDROXYZINE HCL 25 MG TAB take 1 every 4-6 hours as needed 07/01 HYDROXYZINE HCL 25 MG TAB 260361 HYDROXYZINE HCL Inactive ALPRAZOLAM 2 MG TABS 1 tablet by mouth three times daily as needed ALPRAZOLAM 2 MG TABS 556107 ALPRAZOLAM Inactive NEXIUM 40 MG CPDR 1 cap by mouth daily NEXIUM 40 MG CPDR 462601 ESOMEPRAZOLE MAGNESIUM Inactive Advance Directives Directive Description Start Date PERMISSION TO SHARE Vital Signs Date Name Value Unit Range Description blood pressure, diastolic - 8462-4 97 mm[Hg] [...] % 11.6-14.8 platelet count 269 10^3/MM^3 10*3/mm3 256-589 8283/03/25 mean corpuscular volume, RBC 93 fL 80-97 hematocrit, blood 41.9 % 41.0-53.0 hemoglobin, blood 14.0 g/dL 13.5-17.5 erythrocyte (RBC) count 4.49 10^6/MM^3 10*6/mm3 4.69-6.13 leukocyte count, blood 5.7 10^3/MM^3 10*3/mm3 4.6-10.2 Lab Report: Comp. Metabolic Panel, Lipid Panel, Thyroid Stimulating Horm ... - Chemistry sodium, serum 140 mmol/L 679-793 4349/03/25 creatinine, serum 0.94 mg/dL 0.55-1.30 alanine aminotransferase (SGPT), serum 23 U/L 12-78 aspartate aminotransferase (SGOT), serum 21 U/L 15-37 calcium, serum 8.9 mg/dL 8.5-10.1 bilirubin, serum, total 0.30 mg/dL 0.00-1.00 cholesterol, serum 169 mg/dL 686-492 2527/03/25 triglyceride, serum, fasting 143 mg/dL 30-200 HDL [...] 5.0-8.5 Encounters Code Encounter Date Provider Facility CPT-19268 Level 3 Est. Patient 09:51:37 HOUSEHOLD WORKER Wily Zhang [facility] CPT-34961 Level 3 Est. Patient 11:07:48 CDT Wily Zhang [facility] CPT-44151 Level 3 Est. Patient 11:24:24 CDT Wily Zhang [facility] CPT-27345 Level 3 Est. Patient 15:19:54 HOUSEHOLD WORKER Wily Zhang [facility] CPT-91513 Level 3 Est. Patient 10:04:45 CDT Wily Zhang [facility] CPT-73780 Level 3 Est. Patient 13:04:06 CDT Wily Zhang [facility] CPT-49451 Level 3 Est. Patient 12:23:04 CDT Wily Zhang [facility] CPT-15638 Level 3 Est. Patient 15:43:10 HOUSEHOLD WORKER Wily Zhang [facility] CPT-21036 Level 3 Est. Patient 16:10:54 CDT Wily Gonzalez [facility] CPT-41220 Level 3 Est. Patient 19:50:51 CDT Wily Gonzalez [facility] CPT-79089 Level 3 Est. Patient 12:02:30 HOUSEHOLD WORKER Wily Gonzalez [facility] CPT-05131 Level 3 Est. Patient 12:03:11 HOUSEHOLD WORKER Wily Gonzalez [facility] CPT-61108 Level 3 Est. Patient 12:01:41 HOUSEHOLD WORKER Wily Gonzalez [facility] CPT-55152 Level 3 Est. Patient 11:51:24 HOUSEHOLD WORKER Wily Gonzalez [facility] CPT-00045 Level 3 Est. Patient 11:58:20 HOUSEHOLD WORKER Wily Gonzalez [facility] CPT-38470 Level 3 Est. Patient 08:31:36 HOUSEHOLD WORKER Wily Gonzalez [facility] CPT-65655 Level 3 Est. Patient 21:57:36 CDT Wily Gonzalez [facility] CPT-56090 Level 3 Est. Patient 10:49:58 CDT Esvin Hudson [facility] CPT-11762 Level 3 Est. Patient 11:22:52 CDT Esvin Hudson [facility] CPT-17404 Level 3 Est. Patient 13:49:41 CDT Esvin Hudson [facility] CPT-86624 Level 3 Est. Patient 11:54:53 CDT Esvin PAULA [facility] CPT-21373 Level 3 Est. Patient 09:07:11 CDT Esvin Hudson [facility] CPT-74705 Level 3 Est. Patient 13:52:47 CDT Esvin Hudson [facility] CPT-40755 Level 3 Est. Patient 11:26:46 CDT Esvin PAULA [facility] CPT-49362 Level 3 Est. Patient 10:25:00 HOUSEHOLD WORKER Esvin Hudson CHAI [facility] CPT-96440 Level 3 Est. Patient 11:39:11 HOUSEHOLD WORKER Esvin Hudson CHAI [facility] CPT-23345 Level 3 Est. Patient 13:24:24 HOUSEHOLD WORKER Esvin Hudson CHAI [facility] CPT-82124 Level 3 Est. Patient 10:26:13 HOUSEHOLD WORKER Esvin Hudson CHAI [facility] CPT-79914 Level 3 Est. Patient 10:21:21 CDT Esvin Tristan PA [facility] CPT-78425 Level 3 Est. Patient 10:26:30 CDT Esvin Tristan PA [facility] CPT-94802 Level 3 Est. Patient 09:16:37 CDT Esvin Hudson CHAI [facility] CPT-68901 Level 3 Est. Patient 09:06:58 CDT Esvin Hudson CHAI [facility] CPT-17846 Level 3 Est. Patient 10:05:29 CDT Esvin Tristan PA [facility] CPT-07749 Level 3 Est. Patient 10:38:45 CDT Esvin Tristan CHAI [facility] CPT-85292 Level 3 Est. Patient 10:09:45 CDT Esvin Hudson CHAI [facility] CPT-75732 Level 3 Est. Patient 09:26:37 CDT Esvin Tristan PA [facility] CPT-68317 Level 3 Est. Patient 10:34:42 HOUSEHOLD WORKER Esvin Tristan CHAI [facility] CPT-31884 Level 3 Est. Patient 10:45:47 HOUSEHOLD WORKER Esvin Larchwood PA [facility] CPT-78816 Level 3 Est. Patient 10:45:22 HOUSEHOLD WORKER Esvin Hudson [facility] CPT-44717 Level 3 Est. Patient 14:18:30 HOUSEHOLD WORKER Esvin Hudson [facility] CPT-42622 Level 3 Est. Patient 13:53:29 HOUSEHOLD WORKER Esvin Larchwood [facility] CPT-75137 Level 3 Est. Patient 10:34:11 CDT Esvin Tristan [facility] Procedures Code Procedure Name Date Entry Date Standard Description CPT-92167 Bone Density - XRAY USE ONLY 11:29:32 CDT CPT-67497 LS spine AP and Lat - XRAY USE ONLY 10:07:43 HOUSEHOLD WORKER 10/26 CPT-03453 Venipuncture Draw Fee 09:51:16 HOUSEHOLD WORKER CPT-12424 Smoking Cessation counseling 09:39:47 HOUSEHOLD WORKER CPT-G0438 Initial Annual Wellness Exam 09:37:28 HOUSEHOLD WORKER CPT-53617 Venipuncture Draw Fee 09:26:55 CDT CPT-07813 Venipuncture Draw Fee 11:55:52 CDT CPT-66474 Spec Collection and Handling Fee 09:16:37 CDT CPT-26405 Venipuncture Draw Fee 09:16:37 CDT
--- OUTSIDE RECORDS SUMMARY | 2018-02-26 14:27 | XMS REPORT | Clinical Summary ---
Author Author Admin, E Organization [employer] Address Unknown Phone Unavailable Allergies, Adverse Reactions, [...] with depressed mood HYPERTENSION ICD-401.9 Inactive Wily Zhang Carlos DO ANKLE PAIN ICD-719.47 Inactive Wily Zhang Carlos DO 05/08 FH DIABETES ICD-V18.0 Inactive Wily Vicente Carlos DO ANEMIA ICD-285.9 Inactive Wily Zhang Carlos DO Tinea corporis ICD-110.5 Inactive Wily Zhang Carlos DO Tinea corporis ICD-110.5 Inactive Wily Gonzalez DO Hemorrhoids ICD-455.6 Inactive Wily Zhang Carlos DO 05/08 Nocturia ICD-788.43 Inactive Wily Gonzalez DO U T I ICD-599.0 Inactive Wily Zhang Carlos DO U R I ICD-465.9 Inactive Wily Gonzalez DO Medication List Medication Instructions Start Date Stop Date Generic Name [facility] Status Provider Patient Instruction CHANTIX 1 MG ORAL TABLET 1 twice a day VARENICLINE TARTRATE 83207316853 No Longer Active Wily Gonzalez DO Active RAUL-MAG 500-250 MG ORAL TABLET Take one by mouth daily CALCIUM -MAGNESIUM 86080524582 Active Wily Gonzalez DO Active FOSAMAX 70 MG ORAL TABLET 1 po qweek. Take 30min prior to first food/drink. Avoid lying down x 1 hour. ALENDRONATE SODIUM 26457709598 Active Rose Bang Active CALCIUM 600 MG ORAL TABLET 1 po q day CALCIUM 18011407280 Active Rose Bang Active TRIAMCINOLONE ACETONIDE 0.1 % EXTERNAL CREAM Apply to affected area 3 times daily for up to 2 weeks TRIAMCINOLONE ACETONIDE 43363811520 Active Wily Gonzalez DO Active NSUFOLD-FRQRDACHF-LGMA 167-83-8 MG ORAL TABLET 1 tab po daily GHLGQRA-[id number] 94925226354 No Longer Active Wily Gonzalez DO Active NYSTATIN 471535 UNIT/GM EXTERNAL CREAM apply to rash TID PRN 2015 NYSTATIN 74105588813 No Longer Active Wily Gonzalez DO Active POLY-IRON 150 150 MG ORAL CAPSULE 1 tab po bid POLYSACCHARIDE IRON COMPLEX 70389755579 No Longer Active Wily Gonzalez DO Active FLONASE ALLERGY RELIEF 50 MCG/ACT NASAL SUSPENSION 2 sprays each nostril every day FLUTICASONE PROPIONATE 24472158749 Active Wily Gonzalez DO Active CLEMASTINE FUMARATE 1.34 MG ORAL TABLET 1 tab PO BID CLEMASTINE FUMARATE 74496587551 No Longer Active Wily Gonzalez DO Active FLOMAX 0.4 MG ORAL CAPSULE 1 capsule in the evening for night time urination. TAMSULOSIN HCL 31334334576 No Longer Active Wily Gonzalez DO Active PROTONIX 40 MG ORAL TABLET DELAYED RELEASE 1 po daily PANTOPRAZOLE SODIUM 02732715144 Active Lisa Berkowitz Active HYDROXYZINE HCL 25 MG ORAL TABLET 1 two times a day as needed for anxiety HYDROXYZINE HCL 39559873664 No Longer Active Wily Gonzalez DO Active ANUSOL-HC 25 MG RECTAL SUPPOSITORY 1 rectally every 12 hours for irritation HYDROCORTISONE NAEL (RECTAL) 80022769975 No Longer Active Wily Gonzalez DO Active HYDROXYZINE HCL 25 MG ORAL TABLET Take one (1) tablet by mouth twice a day HYDROXYZINE HCL 49519031715 No Longer Active Wily Gonzalez DO Active ZIAC 2.5-6.25 MG ORAL TABLET 1 tablet daily for high blood pressure BISOPROLOL-HCTZ 33902153548 No Longer Active Wily Gonzalez DO Active ZIAC 2.5-6.25 MG ORAL TABLET 1 tablet every morning for high blood pressure BISOPROLOL-HCTZ 51279931680 No Longer Active Wily Gonzalez DO Active AMOXICILLIN 500 MG ORAL CAPSULE Take one (1) tablet by mouth three times a day AMOXICILLIN 77496491607 No Longer Active Wily Gonzalez DO Active MORPHINE SULFATE ER 100 MG ORAL TABLET EXTENDED RELEASE Take one (1) tablet by mouth twice a day MORPHINE SULFATE 52045255831 No Longer Active Wily Gonzalez DO Active MORPHINE SULFATE ER 100 MG ORAL CAPSULE EXTENDED RELEASE 24 HOUR 1 capsule twice daily for chronic pain MORPHINE SULFATE 19154079219 Active Laurie Latham LPN Active CIALIS 10 MG ORAL TABLET 1 every 72 hours as needed TADALAFIL 72083234631 No Longer Active Esvin PAULA Active FLONASE 50 MCG/ACT NASAL SUSPENSION 2 SPRAY EACH NARE DAILY 05/08 FLUTICASONE PROPIONATE 47677908794 No Longer Active Esvin PAULA Active CYCLOBENZAPRINE HCL 10 MG ORAL TABLET Take one (1) tablet by mouth three times a day CYCLOBENZAPRINE HCL 70221292527 Active Lisa Berkowitz Active OPANA ER 40 MG ORAL TABLET ER 12 HOUR ABUSE-DETERRENT Take one (1) tablet by mouth twice a day OXYMORPHONE HCL 55119400463 No Longer Active Esvin PAULA Active PROAIR HFA 108 (90 Base) MCG/ACT INHALATION AEROSOL SOLUTION 2 puffs every four hours as needed ALBUTEROL SULFATE 30145552625 No Longer Active Esvin PAULA Active CLEARLAX ORAL POWDER 17gm q day prn constipation POLYETHYLENE GLYCOL 3350 14834483205 Active Wily Gonzalez DO Active MORPHINE SULFATE ER 100 MG ORAL CAPSULE EXTENDED RELEASE 24 HOUR Take one (1) tablet by mouth twice a day MORPHINE SULFATE 48376421936 No Longer Active Esvin PAULA Active FLEXERIL 10 MG TAB 1 tablet by mouth 3 times daily as needed CYCLOBENZAPRINE HCL 15155655717 No Longer Active Esvin PAULA Active CELEBREX 200 MG ORAL CAPSULE 1 tablet by mouth twice daily with meals 2012 CELECOXIB 31460108293 No Longer Active Esvin PAULA Active NEXIUM 40 MG ORAL CAPSULE DELAYED RELEASE 1 cap daily ESOMEPRAZOLE MAGNESIUM 57711370225 No Longer Active Esvin PALUA Active MOBIC 15 MG ORAL TABLET 1 tab daily MELOXICAM 07761192474 No Longer Active Esvin PAULA Active LISINOPRIL 20 MG ORAL TABLET Take 1 tablet by mouth daily LISINOPRIL 05694183932 No Longer Active Esvin PAULA Active DICLOFENAC SODIUM 50 MG ORAL TABLET DELAYED RELEASE 1 tablet by mouth four times daily DICLOFENAC SODIUM 42396542490 No Longer Active Paula Cooney RN Active VERAMYST 27.5 MCG/SPRAY NASAL SUSPENSION 2 spray each nare daily FLUTICASONE FUROATE 92381766844 No Longer Active Megan Vargas RN Active ENDOCET 10-325 MG ORAL TABLET Take one (1) tablet by mouth three times a day OXYCODONE-ACETAMINOPHEN 90248137772 Active Laurie Latham LPN Active ALPRAZOLAM 2 MG ORAL TABLET Take one (1) tablet by mouth three times a day ALPRAZOLAM 36113637485 Active Rose Bang Active NEXIUM 40 MG ORAL CAPSULE DELAYED RELEASE 1 cap by mouth daily ESOMEPRAZOLE MAGNESIUM 15261241908 No Longer Active Esvin PAULA Active ALPRAZOLAM 2 MG ORAL TABLET 1 tablet by mouth three times daily as needed ALPRAZOLAM 96596524248 No Longer Active Esvin PAULA Active HYDROXYZINE HCL 25 MG ORAL TABLET take 1 every 4-6 hours as needed HYDROXYZINE HCL 10961862621 No Longer Active Esvin PAULA Active ENDOCET 10-325 MG ORAL TABLET 1 by mouth twice a day OXYCODONE-ACETAMINOPHEN 28532165253 No Longer Active Esvin PAULA Active MS CONTIN 100 MG ORAL TABLET EXTENDED RELEASE 1 by mouth twice a day MORPHINE SULFATE 41358080447 No Longer Active Esvin PAULA Active SUDAFED 30 MG ORAL TABLET 1-2 every 4-6 hours as needed PSEUDOEPHEDRINE HCL 93570229875 Active Lisa Berkowitz Active VERAMYST 27.5 MCG/SPRAY NASAL SUSPENSION 2 spray each nare daily VERAMYST 27.5 MCG/SPRAY NASAL SUSPENSION FLUTICASONE FUROATE Inactive DICLOFENAC SODIUM 50 MG ORAL TABLET DELAYED RELEASE 1 tablet by mouth four times daily DICLOFENAC SODIUM 50 MG ORAL TABLET DELAYED RELEASE 727032 DICLOFENAC SODIUM Inactive LISINOPRIL 20 MG ORAL TABLET Take 1 tablet by mouth daily LISINOPRIL 20 MG ORAL TABLET 443215 LISINOPRIL Inactive MOBIC 15 MG ORAL TABLET 1 tab daily MOBIC 15 MG ORAL TABLET 550356 MELOXICAM Inactive NEXIUM 40 MG ORAL CAPSULE DELAYED RELEASE 1 cap daily NEXIUM 40 MG ORAL CAPSULE DELAYED RELEASE 130463 ESOMEPRAZOLE MAGNESIUM Inactive CELEBREX 200 MG ORAL CAPSULE 1 tablet by mouth twice daily with meals 2012 CELEBREX 200 MG ORAL CAPSULE 708707 CELECOXIB Inactive FLEXERIL 10 MG TAB 1 [...] DAILY 05/08 FLONASE 50 MCG/ACT NASAL SUSPENSION 9662325 FLUTICASONE PROPIONATE Inactive CIALIS 10 MG ORAL [...] a day AMOXICILLIN 500 MG ORAL CAPSULE 712809 AMOXICILLIN Inactive ZIAC 2.5-6.25 MG ORAL TABLET 1 tablet every morning for high blood pressure ZIAC 2.5-6.25 MG ORAL TABLET 206573 BISOPROLOL-HCTZ Inactive ZIAC 2.5-6.25 MG ORAL TABLET 1 tablet daily for high blood pressure ZIAC 2.5-6.25 MG ORAL TABLET 829725 BISOPROLOL-HCTZ Inactive HYDROXYZINE HCL 25 MG ORAL TABLET Take one (1) tablet by mouth twice a day HYDROXYZINE HCL 25 MG ORAL TABLET 461434 HYDROXYZINE HCL Inactive ANUSOL-HC 25 MG RECTAL SUPPOSITORY 1 rectally every 12 hours for irritation ANUSOL-HC 25 MG RECTAL SUPPOSITORY 3953608 HYDROCORTISONE NAEL (RECTAL) Inactive HYDROXYZINE HCL 25 MG ORAL TABLET 1 two times a day as needed for anxiety HYDROXYZINE HCL 25 MG ORAL TABLET 429940 HYDROXYZINE HCL Inactive FLOMAX 0.4 MG ORAL CAPSULE 1 capsule in the evening for night time urination. FLOMAX 0.4 MG ORAL CAPSULE 416398 TAMSULOSIN HCL Inactive CLEMASTINE FUMARATE 1.34 MG ORAL TABLET 1 tab PO BID CLEMASTINE FUMARATE 1.34 MG ORAL TABLET 926878 CLEMASTINE FUMARATE Inactive POLY-IRON 150 150 MG ORAL CAPSULE 1 tab po bid POLY-IRON 150 150 MG ORAL CAPSULE 878254 POLYSACCHARIDE IRON COMPLEX Inactive NYSTATIN 096415 UNIT/GM EXTERNAL CREAM apply to rash TID PRN 2015 NYSTATIN 304941 UNIT/GM EXTERNAL CREAM 188977 NYSTATIN Inactive YVMQFQQ-WCBLFLQED-BNTO 167-83-8 MG ORAL TABLET 1 tab po daily QBIDLLH-TEJSFLFMQ-TZXX 167-83-8 MG ORAL TABLET 48299098653 CALCIUM -MAGNESIUM-ZINC Inactive CHANTIX 1 MG ORAL TABLET 1 twice a day CHANTIX 1 MG ORAL TABLET VARENICLINE TARTRATE Inactive MS CONTIN 100 MG ORAL TABLET EXTENDED RELEASE 1 by mouth twice a day MS CONTIN 100 MG ORAL TABLET EXTENDED RELEASE MORPHINE SULFATE Inactive ENDOCET 10-325 MG ORAL TABLET 1 by mouth twice a day ENDOCET 10-325 MG ORAL TABLET 8749781 OXYCODONE-ACETAMINOPHEN Inactive HYDROXYZINE HCL 25 MG ORAL TABLET take 1 every 4-6 hours as needed HYDROXYZINE HCL 25 MG ORAL TABLET 243919 HYDROXYZINE HCL Inactive ALPRAZOLAM 2 MG ORAL TABLET 1 tablet by mouth three times daily as needed ALPRAZOLAM 2 MG ORAL TABLET 476124 ALPRAZOLAM Inactive NEXIUM 40 MG ORAL CAPSULE DELAYED RELEASE 1 cap by mouth daily NEXIUM 40 MG ORAL CAPSULE DELAYED RELEASE 086930 ESOMEPRAZOLE MAGNESIUM Inactive Advance Directives Directive Description [...] Measured Encounters Code Encounter Date Provider Facility CPT-74132 Level 4 Est. Patient 12:51:46 CDT Wily Gonzalez [facility] CPT-53042 Level 4 Est. Patient 10:10:03 CDT Wily Gonzalez [facility] CPT-56961 Level 3 Est. Patient 14:25:57 CDT Wily Gonzalez [facility] CPT-16610 Level 3 Est. Patient 09:51:37 C[employer]OMER SERVICE AND SALES CONSULTANT Wily Gonzalez [facility] CPT-49396 Level 3 Est. Patient 11:07:48 CDT Wily Gonzalez [facility] CPT-65025 Level 3 Est. Patient 11:24:24 CDT Wily Gonzalez [facility] CPT-80067 Level 3 Est. Patient 15:19:54 CUSTOMER SERVICE AND SALES CONSULTANT Wily Gonzalez [facility] CPT-49408 Level 3 Est. Patient 10:04:45 CDT Wily Gonzalez [facility] CPT-76386 Level 3 Est. Patient 13:04:06 CDT Wily Gonzalez [facility] CPT-45852 Level 3 Est. Patient 12:23:04 CDT Wily Gonzalez [facility] CPT-32058 Level 3 Est. Patient 15:43:10 CUSTOMER SERVICE AND SALES CONSULTANT Wily Gonzalez [facility] CPT-96230 Level 3 Est. Patient 16:10:54 CDT Wily Gonzalez [facility] CPT-27727 Level 3 Est. Patient 19:50:51 CDT Wily Gonzalez [facility] CPT-74978 Level 3 Est. Patient 12:02:30 CUSTOMER SERVICE AND SALES CONSULTANT Wily Gonzalez [facility] CPT-16923 Level 3 Est. Patient 12:03:11 CUSTOMER SERVICE AND SALES CONSULTANT Wily Gonzalez [facility] CPT-32823 Level 3 Est. Patient 12:01:41 CUSTOMER SERVICE AND SALES CONSULTANT Wily Gonzalez [facility] CPT-64804 Level 3 Est. Patient 11:51:24 CUSTOMER SERVICE AND SALES CONSULTANT Wily Gonzalez [facility] CPT-86578 Level 3 Est. Patient 11:58:20 CUSTOMER SERVICE AND SALES CONSULTANT Wily Gonzalez [facility] CPT-66237 Level 3 Est. Patient 08:31:36 CUSTOMER SERVICE AND SALES CONSULTANT Wily Gonzalez [facility] CPT-58553 Level 3 Est. Patient 21:57:36 CDT Wily Gonzalez [facility] CPT-25634 Level 3 Est. Patient 10:49:58 CDT Esvin Hudson [facility] CPT-32358 Level 3 Est. Patient 11:22:52 CDT Esvin PAULA [facility] CPT-03526 Level 3 Est. Patient 13:49:41 CDT Esvin Hudson [facility] CPT-85482 Level 3 Est. Patient 11:54:53 CDT Esvin Hudson [facility] CPT-65027 Level 3 Est. Patient 09:07:11 CDT Esvin Hudson [facility] CPT-22263 Level 3 Est. Patient 13:52:47 CDT Esvin Hudson [facility] CPT-66719 Level 3 Est. Patient 11:26:46 CDT Esvin Tristan PA [facility] CPT-00757 Level 3 Est. Patient 10:25:00 CUSTOMER SERVICE AND SALES CONSULTANT Esvin Tristan PA [facility] CPT-23367 Level 3 Est. Patient 11:39:11 CUSTOMER SERVICE AND SALES CONSULTANT Esvin Hudson CH[facility] CPT-29341 Level 3 Est. Patient 13:24:24 CUSTOMER SERVICE AND SALES CONSULTANT Esvin Hudson CHAI [facility] CPT-34932 Level 3 Est. Patient 10:26:13 CUSTOMER SERVICE AND SALES CONSULTANT Esvin Tristan [facility] CPT-67447 Level 3 Est. Patient 10:21:21 CDT Esvin [place] PA [facility] CPT-60328 Level 3 Est. Patient 10:26:30 CDT Esvin Hudson [facility] CPT-49922 Level 3 Est. Patient 09:16:37 CDT Esvin Hudson [facility] CPT-13401 Level 3 Est. Patient 09:06:58 CDT Esvin Tristan PA [facility] CPT-30987 Level 3 Est. Patient 10:05:29 CDT Esvin [place] PA [facility] CPT-41968 Level 3 Est. Patient 10:38:45 CDT Esvin Tristan [facility] CPT-76775 Level 3 Est. Patient 10:09:45 CDT Esvin Hudson [facility] CPT-30149 Level 3 Est. Patient 09:26:37 CDT Esvin Hudson [facility] CPT-90191 Level 3 Est. Patient 10:34:42 CUSTOMER SERVICE AND SALES CONSULTANT Esvin Tristan [facility] CPT-08574 Level 3 Est. Patient 10:45:47 CUSTOMER SERVICE AND SALES CONSULTANT Esvin [facility] CPT-43872 Level 3 Est. Patient 10:45:22 CUSTOMER SERVICE AND SALES CONSULTANT Esvin Tristan [facility] CPT-20657 Level 3 Est. Patient 14:18:30 CUSTOMER SERVICE AND SALES CONSULTANT Esvin [facility] CPT-94649 Level 3 Est. Patient 13:53:29 CUSTOMER SERVICE AND SALES CONSULTANT Esvin Hudson [facility] CPT-89394 Level 3 Est. Patient 10:34:11 CDT Esvin [facility] Procedures Code Procedure Name Date Entry Date Standard Description CPT-25547 Smoking Cessation counseling 10:10:03 CDT CPT-55936 Smoking Cessation counseling 14:25:57 CDT CPT-78513 Bone Density - XRAY USE ONLY 11:29:32 CDT CPT-40941 LS spine AP and Lat - XRAY USE ONLY 10:07:43 C[employer]OMER [employer]ICE [employer] SALES CONSULTANT 10/26 CPT-75446 Venipuncture Draw Fee 09:51:16 CUSTOMER SERVICE AND SALES CONSULTANT CPT-86977 Smoking Cessation counseling 09:39:47 CUSTOMER SERVICE AND SALES CONSULTANT CPT-G0438 Initial Annual Wellness Exam 09:37:28 CUSTOMER SERVICE AND SALES CONSULTANT CPT-18900 Venipuncture Draw Fee 09:26:55 CDT CPT-31936 Venipuncture Draw Fee 11:55:52 CDT CPT-52524 Spec Collection and Handling Fee 09:16:37 CDT CPT-38265 Venipuncture Draw Fee 09:16:37 CDT
--- NOTE | 2018-02-26 14:28 | ED Integumentary General ---
General Chief Complaint: Skin/Wound Problems Stated Complaint: BITES ON LEGS History of Present Illness Date Seen by Provider: Feb 26, 2018 Time Seen by Provider: 14:23 Initial Comments Patient is a 62-year-old male who presents to the emergency room with complaints of insect bites for about 2 weeks. He recently reports going fishing and got that they were chiggers and had been treating them with topical and Clorox baths without relief. He also reports that he's been seen small black bugs in his new apartment that he's recently moved into. He was unsure as to be causing the bites but is concerned for mites or bedbugs. He has inflamed areas to his posterior knees bilaterally and in his groin area. Timing/Duration: other (2 weeks) Location: generalized Possible Cause: insect sting Associated Symptoms: blisters, change in skin texture Allergies and Home Medications Allergies Coded Allergies: sulfamethoxazole (Verified Adverse Reaction, Mild, upset stomach, 02/26/18) trimethoprim (Verified Adverse Reaction, Mild, upset stomach, 02/26/18) Uncoded Allergies: LIDOCAINE PATCH (Adverse Reaction, Unknown, 02/26/18) Patient Home Medication List Home Medication List Reviewed: Yes Constitutional: see HPI; No fever, No malaise, No weakness EENTM: see HPI; No no symptoms reported, No ear discharge, No hearing loss Respiratory: see HPI; No cough, No dyspnea on exertion Cardiovascular: see HPI; No chest pain, No Hx of Intervention, No palpitations Gastrointestinal: see HPI; No abdominal pain, No constipation, No diarrhea, No nausea, No vomiting Genitourinary: see HPI; No decreased output, No discharge Musculoskeletal: see HPI; No back pain, No gout Skin: see HPI, lesions, rash Psychiatric/Neurological: See HPI; Denies Anxiety, Denies Depressed, Denies Emotional Problems Endocrine: See HPI; Denies Excessive Sweating, Denies Flushing Hematologic/Lymphatic: See HPI; Denies Anemia, Denies Blood Clots All Other Systems Reviewed Negative Unless Noted: Yes Past Agrerhs-Rqymre-Oyavuz Hx Past Med/Social Hx: Reviewed Nursing Past Med/Soc Hx Patient Social History Alcohol Use: Occasionally Uses Alcohol Beverage of Choice: Beer Recreational Drug Use: No Smoking Status: Current Everyday Smoker 2nd Hand Smoke Exposure: Yes Recent Foreign Travel: No Contact w/Someone Who Travel: No Family Medical History Reviewed Nursing Family Hx Physical Exam Vital Signs Vital Signs - First Documented 02/26/18 14:21 Temp 97.8 Pulse 89 Resp 20 B/P (MAP) 176/98 (124) Pulse Ox 98 O2 Delivery Room Air Capillary Refill : General Appearance: WD/WN, no apparent distress HEENT: PERRL/EOMI, normal ENT inspection, TMs normal, pharynx normal Neck: non-tender, full range of motion, supple, normal inspection Cardiovascular: regular rate, rhythm, no edema, no gallop, no JVD, no murmur Respiratory: chest non-tender, lungs clear, normal breath sounds Gastrointestinal: normal bowel sounds, non tender, soft Back: normal inspection, no CVA tenderness, no vertebral tenderness Extremities: normal range of motion, non-tender, normal inspection Neurologic/Psychiatric: alert, normal mood/affect, oriented x 3 Skin: normal color, warm/dry Skin Problem Location: other (in the bends of the patient's knees bilaterally and around his groin and belt area the patient has erythematous circular lesions has central punctuation. There is no drainage but there is minimal induration and the areas are warm to touch.) Skin Problem Character: erythema, lesion, swelling, urticarial Lymphatic: no adenopathy Progress/Results/Core Measures Results/Orders Vital Signs/I&O 02/26/18 02/26/18 14:21 14:37 Temp 97.8 97.8 Pulse 89 89 Resp 20 20 B/P (MAP) 176/98 (124) 176/98 (124) Pulse Ox 98 98 O2 Delivery Room Air Progress Progress Note : Progress Note He was sent home with a prescription for Keflex 500mg QID for 5 Days for infection. Departure Impression Primary Impression: Bedbug bite with infection Additional Impression: Cellulitis Qualified Codes: L03.90 - Cellulitis, unspecified Disposition: 01 HOME, SELF-CARE Condition: Stable/Unchanged Departure-Patient Inst. Decision time for Depature: 14:29 Referrals: NO,LOCAL PHYSICIAN (PCP) Primary Care Physician Patient Instructions: Bedbugs, LOCAL PHYSICIAN LIST, Cellulitis (Skin Infection ), Adult (DC) Add. Discharge Instructions: Take medications as directed. Continue to use your topical Benadryl cream and topical steroid cream that was provided to you at your visit with your physician. Follow-up with a doctor within 1 week for recheck. Return back to the emergency room with signs of increased infection such as increased redness, redness that spreads, drainage, fevers or any other concerns as needed. All discharge instructions reviewed with patient and/or family. Voiced understanding. ADRIANA ZENDEJAS Feb 26, 2018 14:28
--- OUTSIDE RECORDS SUMMARY | 2018-02-26 14:28 | XMS REPORT | Clinical Summary ---
Author Author Admin, E Organization [facility] Address Unknown Phone Unavailable Allergies, [...] TABS 1 twice a day VARENICLINE TARTRATE [id number] No Longer Active Wily Gonzalez DO Active RAUL-MAG 500-250 MG ORAL TABS Take one by mouth daily CALCIUM- MAGNESIUM 95329653117 Active Wily Gonzalez DO Active FOSAMAX 70 MG TABS 1 po qweek. Take 30min prior to first food/drink. Avoid lying down x 1 hour. ALENDRONATE SODIUM 68872039300 Active Rose Bang Active CALCIUM 600 MG ORAL TABS 1 po q day CALCIUM 30314770591 Active Rose Bang Active TRIAMCINOLONE ACETONIDE 0.1 % CREA Apply to affected area 3 times daily for up to 2 weeks TRIAMCINOLONE ACETONIDE 14923444594 Active Wily Gonzalez DO Active [id number] 167-83-8 MG TABS 1 tab po daily PAENARW-[id number]-QAMN 60996468910 No Longer Active Wily Gonzalez DO Active NYSTATIN 193547 UNIT/GM CREA apply to rash TID PRN NYSTATIN 17396721850 No Longer Active Wily Gonzalez DO Active POLY-IRON 150 150 MG CAPS 1 tab po bid POLYSACCHARIDE IRON COMPLEX 32788520291 No Longer Active Wily Gonzalez DO Active FLONASE ALLERGY RELIEF 50 MCG/ACT NASAL SUSP 2 sprays each nostril every day FLUTICASONE PROPIONATE 48007140621 Active Rose Bang Active CLEMASTINE FUMARATE 1.34 MG ORAL TABS 1 tab PO BID CLEMASTINE FUMARATE 98560312776 No Longer Active Wily Gonzalez DO Active FLOMAX 0.4 MG CAPS 1 capsule in the evening for night time urination. TAMSULOSIN HCL 98361865548 No Longer Active Wily Gonzalez DO Active PROTONIX 40 MG TBEC 1 po daily PANTOPRAZOLE SODIUM 24667211713 Active Lisa Berkowitz Active HYDROXYZINE HCL 25 MG TAB 1 two times a day as needed for anxiety HYDROXYZINE HCL 36044212598 No Longer Active Wily Gonzalez DO Active ANUSOL-HC 25 MG SUPPOSITORY 1 rectally every 12 hours for irritation HYDROCORTISONE NAEL (RECTAL) 26764201105 No Longer Active Wily Gonzalez DO Active HYDROXYZINE HCL 25 MG TABS Take one (1) tablet by mouth twice a day HYDROXYZINE HCL 78785221723 No Longer Active Wily Gonzalez DO Active ZIAC 2.5-6.25 MG TAB 1 tablet daily for high blood pressure 10/27 BISOPROLOL-HCTZ 07940623675 No Longer Active Wily Gonzalez DO Active ZIAC 2.5-6.25 MG TAB 1 tablet every morning for high blood pressure BISOPROLOL-HCTZ 95300748096 No Longer Active Wily Gonzalez DO Active AMOXICILLIN 500 MG CAPS Take one (1) tablet by mouth three times a day 05/05 AMOXICILLIN 68030563251 No Longer Active Wily Gonzalez DO Active MORPHINE SULFATE ER 100 MG CR-TABS Take one (1) tablet by mouth twice a day MORPHINE SULFATE 58737428790 No Longer Active Wily Gonzalez DO Active MORPHINE SULFATE ER 100 MG [id number] 1 capsule twice daily for chronic pain MORPHINE SULFATE 25149711786 Active Wily Gonzalez DO Active CIALIS 10 MG TABS 1 every 72 hours as needed TADALAFIL 21330287400 No Longer Active Esvin PAULA Active FLONASE 50 MCG/ACT SUSP 2 SPRAY EACH NARE DAILY FLUTICASONE PROPIONATE 01277210591 No Longer Active Esvin PAULA Active CYCLOBENZAPRINE HCL 10 MG TABS Take one (1) tablet by mouth three times a day CYCLOBENZAPRINE HCL 39484458191 Active Lisa Berkowitz Active OPANA ER (CRUSH RESISTANT) 40 MG [id number] Take one (1) tablet by mouth twice a day OXYMORPHONE HCL 86635987696 No Longer Active Esvin PAULA Active PROAIR HFA 108 (90 BASE) MCG/ACT AERS 2 puffs every four hours as needed ALBUTEROL SULFATE 21482614082 No Longer Active Esvin PAULA Active CLEARLAX POWD 17gm q day prn constipation POLYETHYLENE GLYCOL 3350 20748755167 Active Wily Gonzalez DO Active MORPHINE SULFATE ER 100 MG [id number]-[id number] Take one (1) tablet by mouth twice a day MORPHINE SULFATE 87887483273 No Longer Active Esvin PAULA Active FLEXERIL 10 MG TAB 1 tablet by mouth 3 times daily as needed CYCLOBENZAPRINE HCL 72556462397 No Longer Active Esvin PAULA Active CELEBREX 200 MG CAPS 1 tablet by mouth twice daily with meals CELECOXIB 27702967361 No Longer Active Esvin PALUA Active NEXIUM 40 MG CPDR 1 cap daily ESOMEPRAZOLE MAGNESIUM 14335720310 No Longer Active Esvin PAULA Active MOBIC 15 MG TABS 1 tab daily MELOXICAM 47201098601 No Longer Active Esvin PAULA Active LISINOPRIL 20 MG TABS Take 1 tablet by mouth daily LISINOPRIL 02247219939 No Longer Active Esvin PAULA Active DICLOFENAC SODIUM 50 MG TBEC 1 tablet by mouth four times daily DICLOFENAC SODIUM 90434859294 No Longer Active Paula Cooney RN Active VERAMYST 27.5 MCG/SPRAY SUSP 2 spray each nare daily FLUTICASONE FUROATE 54291649265 No Longer Active Megan Vargas RN Active ENDOCET 10-325 MG TABS Take one (1) tablet by mouth three times a day OXYCODONE-ACETAMINOPHEN 07855621168 Active Wily Gonzalez DO Active ALPRAZOLAM 2 MG TABS Take one (1) tablet by mouth three times a day ALPRAZOLAM 48232540154 Active Rose Bang Active NEXIUM 40 MG CPDR 1 cap by mouth daily ESOMEPRAZOLE MAGNESIUM 60692027002 No Longer Active Esvin PAULA Active ALPRAZOLAM 2 MG TABS 1 tablet by mouth three times daily as needed ALPRAZOLAM 93256764851 No Longer Active Esvin PAULA Active HYDROXYZINE HCL 25 MG TAB take 1 every 4-6 hours as needed 07/01 HYDROXYZINE HCL 55793503134 No Longer Active Esvin PAULA Active ENDOCET 10-325 MG TABS 1 by mouth twice a day OXYCODONE-ACETAMINOPHEN 60991544250 No Longer Active Esvin PAULA Active MS CONTIN 100 MG [id number] 1 by mouth twice a day MORPHINE SULFATE 21911452416 No Longer Active Esvin PAULA Active SUDAFED 30 MG TAB 1-2 every 4-6 hours as needed PSEUDOEPHEDRINE HCL 08071243716 Active Lisa Berkowitz Active ALPRAZOLAM 2 MG TABS 1 tablet by mouth three times daily as needed ALPRAZOLAM 2 MG TABS 793070 ALPRAZOLAM Inactive AMOXICILLIN 500 MG CAPS Take one (1) tablet by mouth three times a day 05/05 AMOXICILLIN 500 MG CAPS 030577 AMOXICILLIN Inactive ANUSOL-HC 25 MG SUPPOSITORY 1 rectally every 12 hours for irritation ANUSOL-HC 25 MG SUPPOSITORY 6667695 HYDROCORTISONE NAEL (RECTAL ) Inactive CLEMASTINE FUMARATE 1.34 MG ORAL TABS 1 tab PO BID CLEMASTINE FUMARATE 1.34 MG ORAL TABS 170029 CLEMASTINE FUMARATE Inactive FLEXERIL 10 MG TAB 1 tablet by mouth 3 times daily as needed FLEXERIL 10 MG TAB CYCLOBENZAPRINE HCL Inactive HYDROXYZINE HCL 25 MG TAB 1 two times a day as needed for anxiety HYDROXYZINE HCL 25 MG TAB 242971 HYDROXYZINE HCL Inactive HYDROXYZINE HCL 25 MG TABS Take one (1) tablet by mouth twice a day HYDROXYZINE HCL 25 MG TABS 855290 HYDROXYZINE HCL Inactive HYDROXYZINE HCL 25 MG TAB take 1 every 4-6 hours as needed 07/01 HYDROXYZINE HCL 25 MG TAB 333128 HYDROXYZINE HCL Inactive LISINOPRIL 20 MG TABS Take 1 tablet by mouth daily LISINOPRIL 20 MG TABS 296003 LISINOPRIL Inactive NYSTATIN 260836 UNIT/GM CREA apply to rash TID PRN NYSTATIN 809114 UNIT/GM CREA 610115 NYSTATIN Inactive DICLOFENAC SODIUM 50 MG TBEC 1 tablet by mouth four times daily DICLOFENAC SODIUM 50 MG TBEC 964951 DICLOFENAC SODIUM Inactive ZIAC 2.5-6.25 MG TAB 1 tablet every morning for high blood pressure ZIAC 2.5-6.25 MG TAB 647307 BISOPROLOL-HCTZ Inactive ZIAC 2.5-6.25 MG TAB 1 tablet daily for high blood pressure 10/27 ZIAC 2.5-6.25 MG TAB 904173 BISOPROLOL-HCTZ Inactive CELEBREX 200 MG CAPS 1 tablet by mouth twice daily with meals CELEBREX 200 MG CAPS 734321 CELECOXIB Inactive MOBIC 15 MG TABS 1 tab daily MOBIC 15 MG TABS 699867 MELOXICAM Inactive NEXIUM 40 MG CPDR 1 cap daily NEXIUM 40 MG CPDR 643510 ESOMEPRAZOLE MAGNESIUM Inactive NEXIUM 40 MG CPDR 1 cap by mouth daily NEXIUM 40 MG CPDR 404602 ESOMEPRAZOLE MAGNESIUM Inactive FLONASE 50 MCG/ACT SUSP 2 SPRAY EACH NARE DAILY FLONASE 50 MCG/ACT SUSP 8504264 FLUTICASONE PROPIONATE Inactive POLY-IRON 150 150 MG CAPS 1 tab po bid POLY-IRON 150 150 MG CAPS 593821 POLYSACCHARIDE IRON COMPLEX Inactive ENDOCET 10-325 MG TABS 1 by mouth twice a day ENDOCET 10-325 MG TABS 5190614 OXYCODONE-ACETAMINOPHEN Inactive CIALIS 10 MG TABS 1 every 72 hours as needed CIALIS 10 MG TABS TADALAFIL Inactive CHANTIX 1 MG TABS 1 twice a day CHANTIX 1 MG TABS VARENICLINE TARTRATE Inactive PROAIR HFA 108 (90 BASE) MCG/ACT AERS 2 puffs every four hours as needed PROAIR HFA 108 (90 BASE) MCG/ACT AERS ALBUTEROL SULFATE Inactive [id number] 167-83-8 MG TABS 1 tab po daily OCGIDZZ-NOJRFTWJJ-TMRS 167-83-8 MG TABS 03587601148 CALCIUM-MAGNESIUM- ZINC Inactive VERAMYST 27.5 MCG/SPRAY SUSP 2 spray each nare daily VERAMYST 27.5 MCG/SPRAY SUSP FLUTICASONE FUROATE Inactive FLOMAX 0.4 MG CAPS 1 capsule in the evening for night time urination. FLOMAX 0.4 MG CAPS 948134 TAMSULOSIN HCL Inactive MORPHINE SULFATE ER 100 MG CR-TABS Take one (1) tablet by mouth twice a day MORPHINE SULFATE ER 100 MG CR-TABS MORPHINE SULFATE Inactive MS CONTIN 100 MG [id number] 1 by mouth twice a day MS CONTIN 100 MG [id number] MORPHINE SULFATE Inactive Advance Directives Directive Description Start Date [...] Measured Encounters Code Encounter Date Provider Facility CPT-06589 Level 4 Est. Patient 12:51:46 CDT Wily Gonzalez [facility] CPT-50965 Level 4 Est. Patient 10:10:03 CDT Wily Gonzalez [facility] CPT-41378 Level 3 Est. Patient 14:25:57 CDT Wily Gonzalez [facility] CPT-19561 Level 3 Est. Patient 09:51:37 [employer] Wily Gonzalez [facility] CPT-42571 Level 3 Est. Patient 11:07:48 CDT Wily Gonzalez [facility] CPT-89289 Level 3 Est. Patient 11:24:24 CDT Wily Gonzalez [facility] CPT-00693 Level 3 Est. Patient 15:19:54 [employer] Wily Gonzalez [facility] CPT-52118 Level 3 Est. Patient 10:04:45 CDT Wily W Carlos [facility] CPT-61760 Level 3 Est. Patient 13:04:06 CDT Wily Gonzalez [facility] CPT-09493 Level 3 Est. Patient 12:23:04 CDT Wily Gonzalez [facility] CPT-12455 Level 3 Est. Patient 15:43:10 [employer] Wily Gonzalez [facility] CPT-77464 Level 3 Est. Patient 16:10:54 CDT Wily Gonzalez [facility] CPT-30785 Level 3 Est. Patient 19:50:51 CDT Wily Gonzalez [facility] CPT-04447 Level 3 Est. Patient 12:02:30 [employer] Wily Gonzalez [facility] CPT-38773 Level 3 Est. Patient 12:03:11 [employer] Wily Gonzalez [facility] CPT-72679 Level 3 Est. Patient 12:01:41 [employer] Wily Gonzalez [facility] CPT-71807 Level 3 Est. Patient 11:51:24 [employer] Wily Gonzalez [facility] CPT-09217 Level 3 Est. Patient 11:58:20 [employer] Wily Gonzalez [facility] CPT-81465 Level 3 Est. Patient 08:31:36 [employer] Wily Gonzalez [facility] CPT-37324 Level 3 Est. Patient 21:57:36 CDT Wily Gonzalez [facility] CPT-53823 Level 3 Est. Patient 10:49:58 CDT Esvin PAULA [facility] CPT-42844 Level 3 Est. Patient 11:22:52 CDT Esvin PAULA [facility] CPT-06173 Level 3 Est. Patient 13:49:41 CDT Esvin PAULA [facility] CPT-32709 Level 3 Est. Patient 11:54:53 CDT Esvin Hudson [facility] CPT-18583 Level 3 Est. Patient 09:07:[address] Esvin Hudson [facility] CPT-91947 Level 3 Est. Patient 13:52:47 CDT Esvin Hudson [facility] CPT-48915 Level 3 Est. Patient 11:26:46 CDT Esvin Hudson [facility] CPT-28383 Level 3 Est. Patient 10:25:00 [employer] Esvin Hudson [facility] CPT-91184 Level 3 Est. Patient 11:39:11 [employer] Esvin Hudson [facility] CPT-91687 Level 3 Est. Patient 13:24:24 [employer] Esvin Hudson [facility] CPT-28517 Level 3 Est. Patient 10:26:13 [employer] Esvin [facility] CPT-60351 Level 3 Est. Patient 10:21:21 CDT Esvin Hudson [facility] CPT-35412 Level 3 Est. Patient 10:26:30 CDT Esvin Hudson [facility] CPT-89137 Level 3 Est. Patient 09:16:37 CDT Esvin Hudson [facility] [place]-12247 Level 3 Est. Patient 09:06:[address] Hudson [facility] CPT-40258 Level 3 Est. Patient 10:05:29 CDT Esvin Tristan [facility] CPT-96396 Level 3 Est. Patient 10:38:[address] [facility] CPT-68414 Level 3 Est. Patient 10:09:[address] [facility] CPT-33548 Level 3 Est. Patient 09:26:[address] [facility] CPT-95130 Level 3 Est. Patient 10:34:42 [employer] Esvin Hudson [facility] CPT-30490 Level 3 Est. Patient 10:45:47 [employer] Esvin Hudson [facility] CPT-16217 Level 3 Est. Patient 10:45:22 [employer] Esvin Hudson [facility] CPT-55365 Level 3 Est. Patient 14:18:30 [employer] Esvin Hudson [facility] CPT-38024 Level 3 Est. Patient 13:53:29 [employer] Esvin Tristan [facility] CPT-34758 Level 3 Est. Patient 10:34:[address] [facility] Procedures Code Procedure Name Date Entry Date Standard Description CPT-12299 Smoking Cessation counseling 10:10:03 CDT CPT-47628 Smoking Cessation counseling 14:25:57 CDT CPT-14332 Bone Density - XRAY USE ONLY 11:29:32 CDT CPT-78345 LS spine AP and Lat - XRAY USE ONLY 10:07:43 [employer] 10/26 CPT-01868 Venipuncture Draw Fee 09:51:16 [employer] CPT-24020 Smoking Cessation counseling 09:39:47 [employer] CPT-G0438 Initial Annual Wellness Exam 09:37:28 [employer] CPT-41699 Venipuncture Draw Fee 09:26:55 CDT CPT-52544 Venipuncture Draw Fee 11:55:52 CDT CPT-23142 Spec Collection and Handling Fee 09:16:37 CDT CPT-98722 Venipuncture Draw Fee 09:16:37 CDT
--- OUTSIDE RECORDS SUMMARY | 2018-02-26 14:29 | XMS REPORT | Clinical Summary ---
Author Author Admin, E Organization [facility] Address Unknown Phone Unavailable Allergies, Adverse [...] specified U R I 465.9 Inactive Wily Zhang Carlos Acute upper respiratory infections of unspecified site Health screening V70.0 Active Wily Vicente Gonzalez DO Routine general medical examination at a health care facility Tobacco abuse 305.1 Active Wily Zhang Carlos Tobacco use disorder Wellness exam V70.0 Active Wily Vicente Gonzalez Routine general medical examination at a health care facility Elevated blood pressure without diagnosis of hypertension 796.2 Active Wily Vicente Gonzalez Elevated blood pressure reading without diagnosis of hypertension HYPERTENSION ICD-401.9 Inactive Wily Vicente Gonzalez ANKLE PAIN ICD-719.47 Inactive Wily Gonzalez DO 05/08 FH DIABETES ICD-V18.0 Inactive Wily Gonzalez DO ANEMIA ICD-285.9 Inactive Wily Gonzalez DO Tinea corporis ICD-110.5 Inactive Wily Zhang Carlos Tinea corporis ICD-110.5 Inactive Wily Zhang Carlos Hemorrhoids ICD-455.6 Inactive Wily Zhang Carlos 05/08 Nocturia ICD-788.43 Inactive Wily Gonzalez DO U T I ICD-599.0 Inactive Wily Gonzalez DO U R I ICD-465.9 Inactive Wily Gonzalez DO Medication List Medication Instructions Start Date Stop Date Generic Name NDC Status Provider Patient Instruction CHANTIX 1 MG TABS 1 twice a day VARENICLINE TARTRATE [id number] Active Wily Gonzalez DO Active TRIAMCINOLONE ACETONIDE 0.1 % CREA Apply to affected area 3 times daily for up to 2 weeks TRIAMCINOLONE ACETONIDE 58187403809 Active Wily Gonzalez DO Active [id number]-[id number]-NEAP 167-83-8 MG TABS 1 tab po daily [id number] 39475494882 No Longer Active Wily Gonzalez DO Active NYSTATIN 786686 UNIT/GM CREA apply to rash TID PRN NYSTATIN 72162277727 No Longer Active Wily Gonzalez DO Active POLY-IRON 150 150 MG CAPS 1 tab po bid POLYSACCHARIDE IRON COMPLEX 56113023805 No Longer Active Wily Gonzalez DO Active FLONASE ALLERGY RELIEF 50 MCG/ACT NASAL SUSP 2 sprays each nostril every day FLUTICASONE PROPIONATE 98629422062 Active Jodi Lucas OBSTETRICS TECHNICIAN Active CLEMASTINE FUMARATE 1.34 MG ORAL TABS 1 tab PO BID CLEMASTINE FUMARATE 36936260166 No Longer Active Wily Gonzalez DO Active FLOMAX 0.4 MG CAPS 1 capsule in the evening for night time urination. TAMSULOSIN HCL 08821324156 No Longer Active Wily Gonzalez DO Active PROTONIX 40 MG TBEC 1 po daily PANTOPRAZOLE SODIUM 15567110155 Active Agnieszka Yeung Active HYDROXYZINE HCL 25 MG TAB 1 two times a day as needed for anxiety HYDROXYZINE HCL 53480145307 No Longer Active Wily Gonzalez DO Active ANUSOL-HC 25 MG SUPPOSITORY 1 rectally every 12 hours for irritation HYDROCORTISONE NAEL (RECTAL) 44058072005 No Longer Active Wily Gonzalez DO Active HYDROXYZINE HCL 25 MG TABS Take one (1) tablet by mouth twice a day HYDROXYZINE HCL 93536576193 No Longer Active Wily Gonzalez DO Active ZIAC 2.5-6.25 MG TAB 1 tablet daily for high blood pressure 10/27 BISOPROLOL-HCTZ 06801588525 No Longer Active Wily Gonzalez DO Active ZIAC 2.5-6.25 MG TAB 1 tablet every morning for high blood pressure BISOPROLOL-HCTZ 70236267808 No Longer Active Wily Gonzalez DO Active AMOXICILLIN 500 MG CAPS Take one (1) tablet by mouth three times a day 05/05 AMOXICILLIN 53589199273 No Longer Active Wily Gonzalez DO Active MORPHINE SULFATE ER 100 MG CR-TABS Take one (1) tablet by mouth twice a day MORPHINE SULFATE 59661956262 No Longer Active Wily Gonzalez DO Active MORPHINE SULFATE ER 100 MG [id number] 1 capsule twice daily for chronic pain MORPHINE SULFATE 50815091757 Active Wily Gonzalez DO Active CIALIS 10 MG TABS 1 every 72 hours as needed TADALAFIL 89419386756 No Longer Active Esvin PAULA Active FLONASE 50 MCG/ACT SUSP 2 SPRAY EACH NARE DAILY FLUTICASONE PROPIONATE 44211629940 No Longer Active Esvin PAULA Active CYCLOBENZAPRINE HCL 10 MG TABS Take one (1) tablet by mouth three times a day CYCLOBENZAPRINE HCL 71577650833 Active Agnieszka Yeung Active OPANA ER (CRUSH RESISTANT) 40 MG [id number] Take one (1) tablet by mouth twice a day OXYMORPHONE HCL 28355025186 No Longer Active Esvin PAULA Active PROAIR HFA 108 (90 BASE) MCG/ACT AERS 2 puffs every four hours as needed ALBUTEROL SULFATE 65479074348 No Longer Active Esivn PAULA Active CLEARLAX POWD 17gm q day prn constipation POLYETHYLENE GLYCOL 3350 32620594330 Active Wily Gonzalez DO Active MORPHINE SULFATE ER 100 MG [id number] Take one (1) tablet by mouth twice a day MORPHINE SULFATE 84829635122 No Longer Active Esvin PAULA Active FLEXERIL 10 MG TAB 1 tablet by mouth 3 times daily as needed CYCLOBENZAPRINE HCL 61022190547 No Longer Active Esvin PAULA Active CELEBREX 200 MG CAPS 1 tablet by mouth twice daily with meals CELECOXIB 27311116849 No Longer Active Esvin PAULA Active NEXIUM 40 MG CPDR 1 cap daily ESOMEPRAZOLE MAGNESIUM 85949170908 No Longer Active Esvin PAULA Active MOBIC 15 MG TABS 1 tab daily MELOXICAM 75445670634 No Longer Active Esvin PAULA Active LISINOPRIL 20 MG TABS Take 1 tablet by mouth daily LISINOPRIL 18431136099 No Longer Active Esvin PAULA Active DICLOFENAC SODIUM 50 MG TBEC 1 tablet by mouth four times daily DICLOFENAC SODIUM 38275301371 No Longer Active Paula Cooney RN Active VERAMYST 27.5 MCG/SPRAY SUSP 2 spray each nare daily FLUTICASONE FUROATE 29190880617 No Longer Active Meganbarbra Vargas RN Active ENDOCET 10-325 MG TABS Take one (1) tablet by mouth three times a day OXYCODONE-ACETAMINOPHEN 98854876551 Active Wily Gonzalez DO Active ALPRAZOLAM 2 MG TABS Take one (1) tablet by mouth three times a day ALPRAZOLAM 32889481814 Active Wily Gonzalez DO Active NEXIUM 40 MG CPDR 1 cap by mouth daily ESOMEPRAZOLE MAGNESIUM 96691886100 No Longer Active Esvin PAULA Active ALPRAZOLAM 2 MG TABS 1 tablet by mouth three times daily as needed ALPRAZOLAM 68857672054 No Longer Active Esvin PAULA Active HYDROXYZINE HCL 25 MG TAB take 1 every 4-6 hours as needed 07/01 HYDROXYZINE HCL 32094323275 No Longer Active Esvin PAULA Active ENDOCET 10-325 MG TABS 1 by mouth twice a day OXYCODONE-ACETAMINOPHEN 53459555987 No Longer Active Esvin PAULA Active MS CONTIN 100 MG [id number] 1 by mouth twice a day MORPHINE SULFATE 69019339360 No Longer Active Esvin PAULA Active SUDAFED 30 MG TAB 1-2 every 4-6 hours as needed PSEUDOEPHEDRINE HCL 17541581259 Active Marylou Melissa RPT,RMA Active VERAMYST 27.5 MCG/SPRAY SUSP 2 spray each nare daily VERAMYST 27.5 MCG/SPRAY SUSP FLUTICASONE FUROATE Inactive DICLOFENAC SODIUM 50 MG TBEC 1 tablet by mouth four times daily DICLOFENAC SODIUM 50 MG TBEC 634246 DICLOFENAC SODIUM Inactive LISINOPRIL 20 MG TABS Take 1 tablet by mouth daily LISINOPRIL 20 MG TABS 376379 LISINOPRIL Inactive MOBIC 15 MG TABS 1 tab daily MOBIC 15 MG TABS 808080 MELOXICAM Inactive NEXIUM 40 MG CPDR 1 cap daily NEXIUM 40 MG CPDR 082902 ESOMEPRAZOLE MAGNESIUM Inactive CELEBREX 200 MG CAPS 1 tablet by mouth twice daily with meals CELEBREX 200 MG CAPS 390669 CELECOXIB Inactive FLEXERIL 10 MG TAB 1 [...] a day 05/05 AMOXICILLIN 500 MG CAPS 623384 AMOXICILLIN Inactive ZIAC 2.5-6.25 MG TAB 1 tablet every morning for high blood pressure ZIAC 2.5-6.25 MG TAB 405201 BISOPROLOL-HCTZ Inactive ZIAC 2.5-6.25 MG TAB 1 tablet daily for high blood pressure 10/27 ZIAC 2.5-6.25 MG TAB 496518 BISOPROLOL-HCTZ Inactive HYDROXYZINE HCL 25 MG TABS Take one (1) tablet by mouth twice a day HYDROXYZINE HCL 25 MG TABS 855835 HYDROXYZINE HCL Inactive ANUSOL-HC 25 MG SUPPOSITORY 1 rectally every 12 hours for irritation ANUSOL-HC 25 MG SUPPOSITORY 7534515 HYDROCORTISONE NAEL (RECTAL ) Inactive HYDROXYZINE HCL 25 MG TAB 1 two times a day as needed for anxiety HYDROXYZINE HCL 25 MG TAB 019132 HYDROXYZINE HCL Inactive FLOMAX 0.4 MG CAPS 1 capsule in the evening for night time urination. FLOMAX 0.4 MG CAPS 845776 TAMSULOSIN HCL Inactive CLEMASTINE FUMARATE 1.34 MG ORAL TABS 1 tab PO BID CLEMASTINE FUMARATE 1.34 MG ORAL TABS 659145 CLEMASTINE FUMARATE Inactive POLY-IRON 150 150 MG CAPS 1 tab po bid POLY-IRON 150 150 MG CAPS POLYSACCHARIDE IRON COMPLEX Inactive NYSTATIN 354732 UNIT/GM CREA apply to rash TID PRN NYSTATIN 630010 UNIT/GM CREA 405815 NYSTATIN Inactive [id number]-IZKOSYMNC-SAFO 167-83-8 MG TABS 1 tab po daily BEKHPHA-[id number]-IQCI 167-83-8 MG TABS [id number] Inactive MS CONTIN 100 MG [id number]-KUS 1 by mouth twice a day MS CONTIN 100 MG [id number] MORPHINE SULFATE Inactive ENDOCET 10-325 MG TABS 1 by mouth twice a day ENDOCET 10-325 MG TABS 1889856 OXYCODONE-ACETAMINOPHEN Inactive HYDROXYZINE HCL 25 MG TAB take 1 every 4-6 hours as needed 07/01 HYDROXYZINE HCL 25 MG TAB 836213 HYDROXYZINE HCL Inactive ALPRAZOLAM 2 MG TABS 1 tablet by mouth three times daily as needed ALPRAZOLAM 2 MG TABS 413983 ALPRAZOLAM Inactive NEXIUM 40 MG CPDR 1 cap by mouth daily NEXIUM 40 MG CPDR 167954 ESOMEPRAZOLE MAGNESIUM Inactive Advance Directives Directive Description [...] ... - Chemistry sodium, serum 140 mmol/L 012-420 5597/03/25 carbon dioxide, venous blood 31.3 mmol/L 21.0-32.0 potassium, serum 4.0 mmol/L 3.5-5.2 chloride, serum 101 mmol/L 98-107 blood glucose 96 mg/dL 65-110 urea nitrogen, blood 7 mg/dL 7-18 creatinine, serum 0.94 mg/dL 0.55-1.30 alanine aminotransferase (SGPT), serum 23 U/L 12-78 aspartate aminotransferase (SGOT), serum 21 U/L 15-37 calcium, serum 8.9 mg/dL 8.5-10.1 bilirubin, serum, total 0.30 mg/dL 0.00-1.00 cholesterol, serum 169 mg/dL 586-395 2182/03/25 triglyceride, serum, fasting 143 mg/dL 30-200 HDL [...] 5.0-8.5 Encounters Code Encounter Date Provider Facility CPT-27847 Level 3 Est. Patient 09:51:37 WIRELESS ARCHITECT Wily Gonzalez [facility] CPT-47121 Level 3 Est. Patient 11:07:48 CDT Wily Gonzalez [facility] CPT-78276 Level 3 Est. Patient 11:24:24 CDT Wily Zhang [facility] CPT-85036 Level 3 Est. Patient 15:19:54 WIRELESS ARCHITECT Wily Gonzalez [facility] CPT-56234 Level 3 Est. Patient 10:04:45 CDT Wily Gonzalez [facility] CPT-75511 Level 3 Est. Patient 13:04:06 CDT Wily Gonzalez [facility] CPT-26051 Level 3 Est. Patient 12:23:04 CDT Wily Gonzalez [facility] CPT-80525 Level 3 Est. Patient 15:43:10 WIRELESS ARCHITECT Wily Gonzalez [facility] CPT-66654 Level 3 Est. Patient 16:10:54 CDT Wily Gonzalez [facility] CPT-42492 Level 3 Est. Patient 19:50:51 CDT Wily Zhang [facility] CPT-70889 Level 3 Est. Patient 12:02:30 WIRELESS ARCHITECT Wily Gonzalez [facility] CPT-37143 Level 3 Est. Patient 12:03:11 WIRELESS ARCHITECT Wily Gonzalez [facility] CPT-42374 Level 3 Est. Patient 12:01:41 WIRELESS ARCHITECT Wily Gonzalez [facility] CPT-77027 Level 3 Est. Patient 11:51:24 WIRELESS ARCHITECT Wily Gonzalez [facility] CPT-42257 Level 3 Est. Patient 11:58:20 WIRELESS ARCHITECT Wily Gonzalez [facility] CPT-83494 Level 3 Est. Patient 08:31:36 WIRELESS ARCHITECT Wily Gonzalez [facility] CPT-67174 Level 3 Est. Patient 21:57:36 CDT Wily Gonzalez [facility] CPT-86934 Level 3 Est. Patient 10:49:58 CDT Esvin PAULA [facility] CPT-26239 Level 3 Est. Patient 11:22:52 CDT Esvin PAULA [facility] CPT-36532 Level 3 Est. Patient 13:49:41 CDT Esvin PAULA [facility] CPT-89991 Level 3 Est. Patient 11:54:53 CDT Esvin PAULA [facility] CPT-61874 Level 3 Est. Patient 09:07:11 CDT Esvin PAULA [facility] CPT-79374 Level 3 Est. Patient 13:52:47 CDT Esvin PAULA [facility] CPT-72348 Level 3 Est. Patient 11:26:46 CDT Esvin PAULA [facility] CPT-51567 Level 3 Est. Patient 10:25:00 WIRELESS ARCHITECT Esvin PAULA [facility] CPT-17256 Level 3 Est. Patient 11:39:11 WIRELESS ARCHITECT Esvin PAULA [facility] CPT-59096 Level 3 Est. Patient 13:24:24 WIRELESS ARCHITECT Esvin Tristan PA [facility] CPT-42015 Level 3 Est. Patient 10:26:13 WIRELESS ARCHITECT Esvin Denver PA [facility] CPT-38313 Level 3 Est. Patient 10:21:21 CDT Esvin Tristan PA [facility] CPT-38751 Level 3 Est. Patient 10:26:30 CDT Esvin Hudson [facility] CPT-01778 Level 3 Est. Patient 09:16:37 CDT Esvin Denver PA [facility]-91105 Level 3 Est. Patient 09:06:58 CDT Esvin Denver PA [facility] CPT-10191 Level 3 Est. Patient 10:05:29 CDT Esvin Tristan PA [facility] CPT-34151 Level 3 Est. Patient 10:38:45 CDT Esvin Denver PA [facility] CPT-59990 Level 3 Est. Patient 10:09:45 CDT Esvin Denver PA [facility] CPT-34986 Level 3 Est. Patient 09:26:37 CDT Esvin Tristan PA [facility] CPT-91125 Level 3 Est. Patient 10:34:42 WIRELESS ARCHITECT Esvin Tristan [facility] CPT-87960 Level 3 Est. Patient 10:45:47 WIRELESS ARCHITECT Esvin Tristan PA [facility] CPT-91948 Level 3 Est. Patient 10:45:22 WIRELESS ARCHITECT Esvin Tristan PA [facility]-91735 Level 3 Est. Patient 14:18:30 WIRELESS ARCHITECT Esvin PAULA [facility] CPT-29235 Level 3 Est. Patient 13:53:29 WIRELESS ARCHITECT Esvin PAULA [facility] CPT-90680 Level 3 Est. Patient 10:34:11 CDT Esvin Hudson [facility] Procedures Code Procedure Name Date Entry Date Standard Description CPT-05263 LS spine AP and Lat - XRAY USE ONLY 10:07:43 WIRELESS ARCHITECT 10/26 CPT-93863 Venipuncture Draw Fee 09:51:16 WIRELESS ARCHITECT CPT-99771 Smoking Cessation counseling 09:39:47 WIRELESS ARCHITECT CPT-G0438 Initial Annual Wellness Exam 09:37:28 WIRELESS ARCHITECT CPT-95836 Venipuncture Draw Fee 09:26:55 CDT CPT-90247 Venipuncture Draw Fee 11:55:52 CDT CPT-05794 Spec Collection and Handling Fee 09:16:37 CDT CPT-38390 Venipuncture Draw Fee 09:16:37 CDT
--- OUTSIDE RECORDS SUMMARY | 2018-02-26 14:29 | XMS REPORT | Clinical Summary ---
Author Author Admin, E Organization [facility] Address Unknown Phone Unavailable Allergies, Adverse [...] Tobacco abuse 305.1 Active Wily Vicente Gonzalez Tobacco use disorder Wellness exam V70.0 Active Wily Vicente Gonzalez DO Routine general medical examination at a health care facility Elevated blood pressure without diagnosis of hypertension 796.2 Active Wily Vicente Gonzalez DO Elevated blood pressure reading without diagnosis of hypertension HYPERTENSION ICD-401.9 Inactive Wily Gonzalez ANKLE PAIN ICD-719.47 Inactive Wily Vicente Gonzalez 05/08 FH DIABETES ICD-V18.0 Inactive Wily Vicente Carlos ARMENDARIZ ANEMIA ICD-285.9 Inactive Wily Zhang Carlos Tinea corporis ICD-110.5 Inactive Wily Gonzalez Tinea corporis ICD-110.5 Inactive Wily Vicente Gonzalez DO Hemorrhoids ICD-455.6 Inactive Wily Vicente Gonzalez 05/08 Nocturia ICD-788.43 Inactive Wily Gonzalez DO U T I ICD-599.0 Inactive Wily Zhang Carlos U R I ICD-465.9 Inactive Wily Vicente Gonzalez Medication List Medication Instructions Start Date Stop Date Generic Name NDC Status Provider Patient Instruction CHANTIX 1 MG TABS 1 twice a day VARENICLINE TARTRATE 83061789277 Active Wily Gonzalez DO Active TRIAMCINOLONE ACETONIDE 0.1 % CREA Apply to affected area 3 times daily for up to 2 weeks TRIAMCINOLONE ACETONIDE 21667963710 Active Wily Gonzalez DO Active [id number] 167-83-8 MG TABS 1 tab po daily IDELYMY-PIULQGVDZ-ICUX 97374302158 No Longer Active Wily Gonzalez DO Active NYSTATIN 445617 UNIT/GM CREA apply to rash TID PRN NYSTATIN 99494123402 No Longer Active Wily Gonzalez DO Active POLY-IRON 150 150 MG CAPS 1 tab po bid POLYSACCHARIDE IRON COMPLEX 71516435711 No Longer Active Wily Gonzalez DO Active FLONASE ALLERGY RELIEF 50 MCG/ACT NASAL SUSP 2 sprays each nostril every day FLUTICASONE PROPIONATE 73244496668 Active Jodiwaleska Lucas ONLINE MARKETING ANALYST Active CLEMASTINE FUMARATE 1.34 MG ORAL TABS 1 tab PO BID CLEMASTINE FUMARATE 54304476893 No Longer Active Wily Gonzalez DO Active FLOMAX 0.4 MG CAPS 1 capsule in the evening for night time urination. TAMSULOSIN HCL 19265430896 No Longer Active Wily Gonzalez DO Active PROTONIX 40 MG TBEC 1 po daily PANTOPRAZOLE SODIUM 32150916940 Active Agnieszka Yeung Active HYDROXYZINE HCL 25 MG TAB 1 two times a day as needed for anxiety HYDROXYZINE HCL 71564895794 No Longer Active Wily Gonzalez DO Active ANUSOL-HC 25 MG SUPPOSITORY 1 rectally every 12 hours for irritation HYDROCORTISONE NAEL (RECTAL) 51075659965 No Longer Active Wily Gonzalez DO Active HYDROXYZINE HCL 25 MG TABS Take one (1) tablet by mouth twice a day HYDROXYZINE HCL 20768206865 No Longer Active Wily Gonzalez DO Active ZIAC 2.5-6.25 MG TAB 1 tablet daily for high blood pressure 10/27 BISOPROLOL-HCTZ 25605697373 No Longer Active Wily Gonzalez DO Active ZIAC 2.5-6.25 MG TAB 1 tablet every morning for high blood pressure BISOPROLOL-HCTZ 46489942139 No Longer Active Wily Gonzalez DO Active AMOXICILLIN 500 MG CAPS Take one (1) tablet by mouth three times a day 05/05 AMOXICILLIN 41044294859 No Longer Active Wily Gonzalez DO Active MORPHINE SULFATE ER 100 MG CR-TABS Take one (1) tablet by mouth twice a day MORPHINE SULFATE 91006899331 No Longer Active Wily Gonzalez DO Active MORPHINE SULFATE ER 100 MG [id number] 1 capsule twice daily for chronic pain MORPHINE SULFATE 21432530419 Active Wily Gonzalez DO Active CIALIS 10 MG TABS 1 every 72 hours as needed TADALAFIL 98425731220 No Longer Active Esvin PAULA Active FLONASE 50 MCG/ACT SUSP 2 SPRAY EACH NARE DAILY FLUTICASONE PROPIONATE 58349512464 No Longer Active Esvin PAULA Active CYCLOBENZAPRINE HCL 10 MG TABS Take one (1) tablet by mouth three times a day CYCLOBENZAPRINE HCL 72103016461 Active Agnieszka Yeung Active OPANA ER (CRUSH RESISTANT) 40 MG PW28I-FNP Take one (1) tablet by mouth twice a day OXYMORPHONE HCL 02093838068 No Longer Active Esvin PAULA Active PROAIR HFA 108 (90 BASE) MCG/ACT AERS 2 puffs every four hours as needed ALBUTEROL SULFATE 64784995268 No Longer Active Esvin PAULA Active CLEARLAX POWD 17gm q day prn constipation POLYETHYLENE GLYCOL 3350 93488848506 Active Wily Gonzalez DO Active MORPHINE SULFATE ER 100 MG FA10H-JYD Take one (1) tablet by mouth twice a day MORPHINE SULFATE 83368223965 No Longer Active Esvin PAULA Active FLEXERIL 10 MG TAB 1 tablet by mouth 3 times daily as needed CYCLOBENZAPRINE HCL 24343694248 No Longer Active Esvin PAULA Active CELEBREX 200 MG CAPS 1 tablet by mouth twice daily with meals CELECOXIB 10967412473 No Longer Active Esvin PAULA Active NEXIUM 40 MG CPDR 1 cap daily ESOMEPRAZOLE MAGNESIUM 96749080344 No Longer Active Esvin PAULA Active MOBIC 15 MG TABS 1 tab daily MELOXICAM 08939457500 No Longer Active Esvin PAULA Active LISINOPRIL 20 MG TABS Take 1 tablet by mouth daily LISINOPRIL 77292057630 No Longer Active Esvin PAULA Active DICLOFENAC SODIUM 50 MG TBEC 1 tablet by mouth four times daily DICLOFENAC SODIUM 48907111534 No Longer Active Paula Cooney RN Active VERAMYST 27.5 MCG/SPRAY SUSP 2 spray each nare daily FLUTICASONE FUROATE 12939912350 No Longer Active Meganbarbra Vargas RN Active ENDOCET 10-325 MG TABS Take one (1) tablet by mouth three times a day OXYCODONE-ACETAMINOPHEN 34833765676 Active Wily Gonzalez DO Active ALPRAZOLAM 2 MG TABS Take one (1) tablet by mouth three times a day ALPRAZOLAM 58248318423 Active Wily Gonzalez DO Active NEXIUM 40 MG CPDR 1 cap by mouth daily ESOMEPRAZOLE MAGNESIUM 21537702314 No Longer Active Esvin PAULA Active ALPRAZOLAM 2 MG TABS 1 tablet by mouth three times daily as needed ALPRAZOLAM 55411393242 No Longer Active Esvin PAULA Active HYDROXYZINE HCL 25 MG TAB take 1 every 4-6 hours as needed 07/01 HYDROXYZINE HCL 41527998819 No Longer Active Esvin PAULA Active ENDOCET 10-325 MG TABS 1 by mouth twice a day OXYCODONE-ACETAMINOPHEN 56475196692 No Longer Active Esvin PAULA Active MS CONTIN 100 MG [id number] 1 by mouth twice a day MORPHINE SULFATE 15870256031 No Longer Active Esvin PAULA Active SUDAFED 30 MG TAB 1-2 every 4-6 hours as needed PSEUDOEPHEDRINE HCL 16152758072 Active Marylou Melissa RPT,RMA Active VERAMYST 27.5 MCG/SPRAY SUSP 2 spray each nare daily VERAMYST 27.5 MCG/SPRAY SUSP FLUTICASONE FUROATE Inactive DICLOFENAC SODIUM 50 MG TBEC 1 tablet by mouth four times daily DICLOFENAC SODIUM 50 MG TBEC 198745 DICLOFENAC SODIUM Inactive LISINOPRIL 20 MG TABS Take 1 tablet by mouth daily LISINOPRIL 20 MG TABS 402598 LISINOPRIL Inactive MOBIC 15 MG TABS 1 tab daily MOBIC 15 MG TABS 063959 MELOXICAM Inactive NEXIUM 40 MG CPDR 1 cap daily NEXIUM 40 MG CPDR 786211 ESOMEPRAZOLE MAGNESIUM Inactive CELEBREX 200 MG CAPS 1 tablet by mouth twice daily with meals CELEBREX 200 MG CAPS 689825 CELECOXIB Inactive FLEXERIL 10 MG TAB 1 [...] a day 05/05 AMOXICILLIN 500 MG CAPS 643799 AMOXICILLIN Inactive ZIAC 2.5-6.25 MG TAB 1 tablet every morning for high blood pressure ZIAC 2.5-6.25 MG TAB 726862 BISOPROLOL-HCTZ Inactive ZIAC 2.5-6.25 MG TAB 1 tablet daily for high blood pressure 10/27 ZIAC 2.5-6.25 MG TAB 020497 BISOPROLOL-HCTZ Inactive HYDROXYZINE HCL 25 MG TABS Take one (1) tablet by mouth twice a day HYDROXYZINE HCL 25 MG TABS 568634 HYDROXYZINE HCL Inactive ANUSOL-HC 25 MG SUPPOSITORY 1 rectally every 12 hours for irritation ANUSOL-HC 25 MG SUPPOSITORY 0872335 HYDROCORTISONE NAEL (RECTAL ) Inactive HYDROXYZINE HCL 25 MG TAB 1 two times a day as needed for anxiety HYDROXYZINE HCL 25 MG TAB 380003 HYDROXYZINE HCL Inactive FLOMAX 0.4 MG CAPS 1 capsule in the evening for night time urination. FLOMAX 0.4 MG CAPS 888475 TAMSULOSIN HCL Inactive CLEMASTINE FUMARATE 1.34 MG ORAL TABS 1 tab PO BID CLEMASTINE FUMARATE 1.34 MG ORAL TABS 066198 CLEMASTINE FUMARATE Inactive POLY-IRON 150 150 MG CAPS 1 tab po bid POLY-IRON 150 150 MG CAPS POLYSACCHARIDE IRON COMPLEX Inactive NYSTATIN 991745 UNIT/GM CREA apply to rash TID PRN NYSTATIN 290456 UNIT/GM CREA 557154 NYSTATIN Inactive [id number]-[id number] 167-83-8 MG TABS 1 tab po daily [id number]-[id number] 167-83-8 MG TABS [id number]-[id number]-NPFO Inactive MS CONTIN 100 MG XF87C-SYP 1 by mouth twice a day MS CONTIN 100 MG [id number]-UFT MORPHINE SULFATE Inactive ENDOCET 10-325 MG TABS 1 by mouth twice a day ENDOCET 10-325 MG TABS 3257023 OXYCODONE-ACETAMINOPHEN Inactive HYDROXYZINE HCL 25 MG TAB take 1 every 4-6 hours as needed 07/01 HYDROXYZINE HCL 25 MG TAB 294514 HYDROXYZINE HCL Inactive ALPRAZOLAM 2 MG TABS 1 tablet by mouth three times daily as needed ALPRAZOLAM 2 MG TABS 654889 ALPRAZOLAM Inactive NEXIUM 40 MG CPDR 1 cap by mouth daily NEXIUM 40 MG CPDR 330218 ESOMEPRAZOLE MAGNESIUM Inactive Advance Directives Directive Description [...] ... - Chemistry sodium, serum 140 mmol/L 982-410 6087/03/25 carbon dioxide, venous blood 31.3 mmol/L 21.0-32.0 potassium, serum 4.0 mmol/L 3.5-5.2 chloride, serum 101 mmol/L 98-107 blood glucose 96 mg/dL 65-110 urea nitrogen, blood 7 mg/dL 7-18 creatinine, serum 0.94 mg/dL 0.55-1.30 alanine aminotransferase (SGPT), serum 23 U/L 12-78 aspartate aminotransferase (SGOT), serum 21 U/L 15-37 calcium, serum 8.9 mg/dL 8.5-10.1 bilirubin, serum, total 0.30 mg/dL 0.00-1.00 cholesterol, serum 169 mg/dL 775-351 3504/03/25 triglyceride, serum, fasting 143 mg/dL 30-200 HDL [...] 5.0-8.5 Encounters Code Encounter Date Provider Facility CPT-08431 Level 3 Est. Patient 09:51:37 PROFESSIONAL BUILDER Wily Gonzalez [facility] CPT-64448 Level 3 Est. Patient 11:07:48 CDT Wily Gonzalez [facility] CPT-06349 Level 3 Est. Patient 11:24:24 CDT Wily Gonzalez [facility] CPT-86253 Level 3 Est. Patient 15:19:54 PROFESSIONAL BUILDER Wily Gonzalez [facility] CPT-33837 Level 3 Est. Patient 10:04:45 CDT Wily Gonzalez [facility] CPT-78350 Level 3 Est. Patient 13:04:06 CDT Wily Gonzalez [facility] CPT-88921 Level 3 Est. Patient 12:23:04 CDT Wily Gonzalez [facility] CPT-57112 Level 3 Est. Patient 15:43:10 PROFESSIONAL BUILDER Wily Gonzalez [facility] CPT-76520 Level 3 Est. Patient 16:10:54 CDT Wily Gonzalez [facility] CPT-81037 Level 3 Est. Patient 19:50:51 CDT Wily Gonzalez [facility] CPT-91151 Level 3 Est. Patient 12:02:30 PROFESSIONAL BUILDER Wily Gonzalez [facility] CPT-43449 Level 3 Est. Patient 12:03:11 PROFESSIONAL BUILDER Wily Gonzalez [facility] CPT-46120 Level 3 Est. Patient 12:01:41 PROFESSIONAL BUILDER Wily Gonzalez [facility] CPT-53933 Level 3 Est. Patient 11:51:24 PROFESSIONAL BUILDER Wily Gonzalez [facility] CPT-73114 Level 3 Est. Patient 11:58:20 PROFESSIONAL BUILDER Wily Gonzalez [facility] CPT-86431 Level 3 Est. Patient 08:31:36 PROFESSIONAL BUILDER Wily Gonzalez [facility] CPT-22297 Level 3 Est. Patient 21:57:36 CDT Wily Gonzalez [facility] CPT-66310 Level 3 Est. Patient 10:49:58 CDT Esvin PAULA [facility] CPT-35305 Level 3 Est. Patient 11:22:52 CDT Esvin PAULA [facility] CPT-37997 Level 3 Est. Patient 13:49:41 CDT Esvin PAULA [facility] CPT-98584 Level 3 Est. Patient 11:54:53 CDT Esvin PAULA [facility] CPT-33504 Level 3 Est. Patient 09:07:11 CDT Esvin PAULA [facility] CPT-74803 Level 3 Est. Patient 13:52:47 CDT Esvin PAULA [facility] CPT-25128 Level 3 Est. Patient 11:26:46 CDT Esvin PAULA [facility] CPT-75190 Level 3 Est. Patient 10:25:00 PROFESSIONAL BUILDER Esvin PAULA [facility] CPT-57733 Level 3 Est. Patient 11:39:11 PROFESSIONAL BUILDER Esvin PAULA [facility] CPT-46764 Level 3 Est. Patient 13:24:24 PROFESSIONAL BUILDER Esvin Hudson [facility] CPT-96229 Level 3 Est. Patient 10:26:13 PROFESSIONAL BUILDER Esvin Hudson [facility] CPT-68441 Level 3 Est. Patient 10:21:21 CDT Esvin Hudson [facility] CPT-52041 Level 3 Est. Patient 10:26:30 CDT Esvin Hudson [facility] CPT-61860 Level 3 Est. Patient 09:16:37 CDT Esvin Hudson [facility]-63394 Level 3 Est. Patient 09:06:58 CDT Esvin Hudson [facility] CPT-79237 Level 3 Est. Patient 10:05:29 CDT Esvin Hudson [facility] CPT-89610 Level 3 Est. Patient 10:38:45 CDT Esvin Hudson [facility] CPT-29013 Level 3 Est. Patient 10:09:45 CDT Esvin Hudson [facility] CPT-81287 Level 3 Est. Patient 09:26:37 CDT Esvin Hudson [facility] CPT-61849 Level 3 Est. Patient 10:34:42 PROFESSIONAL BUILDER Esvin Hudson [facility] CPT-37251 Level 3 Est. Patient 10:45:47 PROFESSIONAL BUILDER Esvin Tristan [facility] CPT-74756 Level 3 Est. Patient 10:45:22 PROFESSIONAL BUILDER Esvin Tristan [facility]-09719 Level 3 Est. Patient 14:18:30 PROFESSIONAL BUILDER Esvin Tristan PA [facility] CPT-24577 Level 3 Est. Patient 13:53:29 PROFESSIONAL BUILDER Esvin PAULA [facility] CPT-46709 Level 3 Est. Patient 10:34:11 CDT Esvin Hudson [facility] Procedures Code Procedure Name Date Entry Date Standard Description CPT-40128 LS spine AP and Lat - XRAY USE ONLY 10:07:43 PROFESSIONAL BUILDER 10/26 CPT-30728 Venipuncture Draw Fee 09:51:16 PROFESSIONAL BUILDER CPT-36244 Smoking Cessation counseling 09:39:47 PROFESSIONAL BUILDER CPT-G0438 Initial Annual Wellness Exam 09:37:28 PROFESSIONAL BUILDER CPT-81031 Venipuncture Draw Fee 09:26:55 CDT CPT-08429 Venipuncture Draw Fee 11:55:52 CDT CPT-59483 Spec Collection and Handling Fee 09:16:37 CDT CPT-35785 Venipuncture Draw Fee 09:16:37 CDT
--- OUTSIDE RECORDS SUMMARY | 2018-02-26 14:30 | XMS REPORT | Clinical Summary ---
Author Author Admin, E Organization [email or web address] Address Unknown Phone Unavailable Allergies, Adverse Reactions, [...] Generic Name ND Status Provider Patient Instruction CHANTIX 1 MG ORAL TABLET 1 twice a day VARENICLINE TARTRATE [id number] No Longer Active Wily Gonzalez DO Active RAUL-MAG 500-250 MG ORAL TABLET Take one by mouth daily CALCIUM -MAGNESIUM 82764079205 Active Wily Gonzalez DO Active FOSAMAX 70 MG ORAL TABLET 1 po qweek. Take 30min prior to first food/drink. Avoid lying down x 1 hour. ALENDRONATE SODIUM 33532261389 Active Laurie Latham LPN Active CALCIUM 600 MG ORAL TABLET 1 po q day CALCIUM 14071643841 Active Rose Bang Active TRIAMCINOLONE ACETONIDE 0.1 % EXTERNAL CREAM Apply to affected area 3 times daily for up to 2 weeks TRIAMCINOLONE ACETONIDE 81708288983 Active Wily Gonzalez DO Active [id number]-[id number]-LQFA 167-83-8 MG ORAL TABLET 1 tab po daily [id number] 40861908355 No Longer Active Wily Gonzalez DO Active NYSTATIN 119226 UNIT/GM EXTERNAL CREAM apply to rash TID PRN 2015 NYSTATIN 57907436335 No Longer Active Wily Gonzalez DO Active POLY-IRON 150 150 MG ORAL CAPSULE 1 tab po bid POLYSACCHARIDE IRON COMPLEX 50589541152 No Longer Active Wily Gonzalez DO Active FLONASE ALLERGY RELIEF 50 MCG/ACT NASAL SUSPENSION 2 sprays each nostril every day FLUTICASONE PROPIONATE 19985342357 Active Wily Gonzalez DO Active CLEMASTINE FUMARATE 1.34 MG ORAL TABLET 1 tab PO BID CLEMASTINE FUMARATE 93616001461 No Longer Active Wily Gonzalez DO Active FLOMAX 0.4 MG ORAL CAPSULE 1 capsule in the evening for night time urination. TAMSULOSIN HCL 15958381882 No Longer Active Wily Gonzalez DO Active PROTONIX 40 MG ORAL TABLET DELAYED RELEASE 1 po daily PANTOPRAZOLE SODIUM 99398717901 Active Lisa Berkowitz Active HYDROXYZINE HCL 25 MG ORAL TABLET 1 two times a day as needed for anxiety HYDROXYZINE HCL 15767577018 No Longer Active Wily Gonzalez DO Active ANUSOL-HC 25 MG RECTAL SUPPOSITORY 1 rectally every 12 hours for irritation HYDROCORTISONE NAEL (RECTAL) 86834372849 No Longer Active Wily Gonzalez DO Active HYDROXYZINE HCL 25 MG ORAL TABLET Take one (1) tablet by mouth twice a day HYDROXYZINE HCL 50658207679 No Longer Active Wily Gonzalez DO Active ZIAC 2.5-6.25 MG ORAL TABLET 1 tablet daily for high blood pressure BISOPROLOL-HCTZ 53625566503 No Longer Active Wily Gonzalez DO Active ZIAC 2.5-6.25 MG ORAL TABLET 1 tablet every morning for high blood pressure BISOPROLOL-HCTZ 75129217365 No Longer Active Wily Gonzalez DO Active AMOXICILLIN 500 MG ORAL CAPSULE Take one (1) tablet by mouth three times a day AMOXICILLIN 84493117810 No Longer Active Wily Gonzalez DO Active MORPHINE SULFATE ER 100 MG ORAL TABLET EXTENDED RELEASE Take one (1) tablet by mouth twice a day MORPHINE SULFATE 20849964844 No Longer Active Wily Gonzalez DO Active MORPHINE SULFATE ER 100 MG ORAL CAPSULE EXTENDED RELEASE 24 HOUR 1 capsule twice daily for chronic pain MORPHINE SULFATE 42698687250 Active Laurie Latham LPN Active CIALIS 10 MG ORAL TABLET 1 every 72 hours as needed TADALAFIL 15738368201 No Longer Active Esvin PAULA Active FLONASE 50 MCG/ACT NASAL SUSPENSION 2 SPRAY EACH NARE DAILY 05/08 FLUTICASONE PROPIONATE 01708879494 No Longer Active Esvin PAULA Active CYCLOBENZAPRINE HCL 10 MG ORAL TABLET Take one (1) tablet by mouth three times a day CYCLOBENZAPRINE HCL 44455698896 Active Lisa Berkowitz Active OPANA ER 40 MG ORAL TABLET ER 12 HOUR ABUSE-DETERRENT Take one (1) tablet by mouth twice a day OXYMORPHONE HCL 88957121410 No Longer Active Esvin PAULA Active PROAIR HFA 108 (90 Base) MCG/ACT INHALATION AEROSOL SOLUTION 2 puffs every four hours as needed ALBUTEROL SULFATE 90801216626 No Longer Active Esvin PAULA Active CLEARLAX ORAL POWDER 17gm q day prn constipation POLYETHYLENE GLYCOL 3350 39595178879 Active Wily Gonzalez DO Active MORPHINE SULFATE ER 100 MG ORAL CAPSULE EXTENDED RELEASE 24 HOUR Take one (1) tablet by mouth twice a day MORPHINE SULFATE 18018125661 No Longer Active Esvin PAULA Active FLEXERIL 10 MG TAB 1 tablet by mouth 3 times daily as needed CYCLOBENZAPRINE HCL 89083454303 No Longer Active Esvin PAULA Active CELEBREX 200 MG ORAL CAPSULE 1 tablet by mouth twice daily with meals 2012 CELECOXIB 85900539395 No Longer Active Esvin PAULA Active NEXIUM 40 MG ORAL CAPSULE DELAYED RELEASE 1 cap daily ESOMEPRAZOLE MAGNESIUM 30473411711 No Longer Active Esvin PAULA Active MOBIC 15 MG ORAL TABLET 1 tab daily MELOXICAM 08849682061 No Longer Active Esvin PAULA Active LISINOPRIL 20 MG ORAL TABLET Take 1 tablet by mouth daily LISINOPRIL 11976257252 No Longer Active Esvin PAULA Active DICLOFENAC SODIUM 50 MG ORAL TABLET DELAYED RELEASE 1 tablet by mouth four times daily DICLOFENAC SODIUM 18241543776 No Longer Active Paula Cooney RN Active VERAMYST 27.5 MCG/SPRAY NASAL SUSPENSION 2 spray each nare daily FLUTICASONE FUROATE 50644204609 No Longer Active Megan Vargas RN Active ENDOCET 10-325 MG ORAL TABLET Take one (1) tablet by mouth three times a day OXYCODONE-ACETAMINOPHEN 66857501345 Active Laurie Latham LPN Active ALPRAZOLAM 2 MG ORAL TABLET Take one (1) tablet by mouth three times a day ALPRAZOLAM 98211432076 Active Rose Bang Active NEXIUM 40 MG ORAL CAPSULE DELAYED RELEASE 1 cap by mouth daily ESOMEPRAZOLE MAGNESIUM 70347402035 No Longer Active Esvin PAULA Active ALPRAZOLAM 2 MG ORAL TABLET 1 tablet by mouth three times daily as needed ALPRAZOLAM 81196464915 No Longer Active Esvin PAULA Active HYDROXYZINE HCL 25 MG ORAL TABLET take 1 every 4-6 hours as needed HYDROXYZINE HCL 34518944826 No Longer Active Esvin PAULA Active ENDOCET 10-325 MG ORAL TABLET 1 by mouth twice a day OXYCODONE-ACETAMINOPHEN 60247269212 No Longer Active Esvin PAULA Active MS CONTIN 100 MG ORAL TABLET EXTENDED RELEASE 1 by mouth twice a day MORPHINE SULFATE 26579336135 No Longer Active Esvin PAULA Active SUDAFED 30 MG ORAL TABLET 1-2 every 4-6 hours as needed PSEUDOEPHEDRINE HCL 23682695509 Active Wily Gonzalez DO Active VERAMYST 27.5 MCG/SPRAY NASAL SUSPENSION 2 spray each nare daily VERAMYST 27.5 MCG/SPRAY NASAL SUSPENSION FLUTICASONE FUROATE Inactive DICLOFENAC SODIUM 50 MG ORAL TABLET DELAYED RELEASE 1 tablet by mouth four times daily DICLOFENAC SODIUM 50 MG ORAL TABLET DELAYED RELEASE 332534 DICLOFENAC SODIUM Inactive LISINOPRIL 20 MG ORAL TABLET Take 1 tablet by mouth daily LISINOPRIL 20 MG ORAL TABLET 012319 LISINOPRIL Inactive MOBIC 15 MG ORAL TABLET 1 tab daily MOBIC 15 MG ORAL TABLET 812719 MELOXICAM Inactive NEXIUM 40 MG ORAL CAPSULE DELAYED RELEASE 1 cap daily NEXIUM 40 MG ORAL CAPSULE DELAYED RELEASE 210002 ESOMEPRAZOLE MAGNESIUM Inactive CELEBREX 200 MG ORAL CAPSULE 1 tablet by mouth twice daily with meals 2012 CELEBREX 200 MG ORAL CAPSULE 230871 CELECOXIB Inactive FLEXERIL 10 MG TAB 1 [...] DAILY 05/08 FLONASE 50 MCG/ACT NASAL SUSPENSION 4999171 FLUTICASONE PROPIONATE Inactive CIALIS 10 MG ORAL [...] a day AMOXICILLIN 500 MG ORAL CAPSULE 271868 AMOXICILLIN Inactive ZIAC 2.5-6.25 MG ORAL TABLET 1 tablet every morning for high blood pressure ZIAC 2.5-6.25 MG ORAL TABLET 762325 BISOPROLOL-HCTZ Inactive ZIAC 2.5-6.25 MG ORAL TABLET 1 tablet daily for high blood pressure ZIAC 2.5-6.25 MG ORAL TABLET 286934 BISOPROLOL-HCTZ Inactive HYDROXYZINE HCL 25 MG ORAL TABLET Take one (1) tablet by mouth twice a day HYDROXYZINE HCL 25 MG ORAL TABLET 683804 HYDROXYZINE HCL Inactive ANUSOL-HC 25 MG RECTAL SUPPOSITORY 1 rectally every 12 hours for irritation ANUSOL-HC 25 MG RECTAL SUPPOSITORY 9235654 HYDROCORTISONE NAEL (RECTAL) Inactive HYDROXYZINE HCL 25 MG ORAL TABLET 1 two times a day as needed for anxiety HYDROXYZINE HCL 25 MG ORAL TABLET 470482 HYDROXYZINE HCL Inactive FLOMAX 0.4 MG ORAL CAPSULE 1 capsule in the evening for night time urination. FLOMAX 0.4 MG ORAL CAPSULE 440424 TAMSULOSIN HCL Inactive CLEMASTINE FUMARATE 1.34 MG ORAL TABLET 1 tab PO BID CLEMASTINE FUMARATE 1.34 MG ORAL TABLET 612009 CLEMASTINE FUMARATE Inactive POLY-IRON 150 150 MG ORAL CAPSULE 1 tab po bid POLY-IRON 150 150 MG ORAL CAPSULE 324427 POLYSACCHARIDE IRON COMPLEX Inactive NYSTATIN 724174 UNIT/GM EXTERNAL CREAM apply to rash TID PRN 2015 NYSTATIN 742200 UNIT/GM EXTERNAL CREAM 168232 NYSTATIN Inactive FHXNKCI-WGTTNBMEG-VTCS 167-83-8 MG ORAL TABLET 1 tab po daily SHRYFQR-NZQWDJAWC-WHQK 167-83-8 MG ORAL TABLET 84075545044 CALCIUM -MAGNESIUM-ZINC Inactive CHANTIX 1 MG ORAL TABLET 1 twice a day CHANTIX 1 MG ORAL TABLET VARENICLINE TARTRATE Inactive MS CONTIN 100 MG ORAL TABLET EXTENDED RELEASE 1 by mouth twice a day MS CONTIN 100 MG ORAL TABLET EXTENDED RELEASE MORPHINE SULFATE Inactive ENDOCET 10-325 MG ORAL TABLET 1 by mouth twice a day ENDOCET 10-325 MG ORAL TABLET 4984723 OXYCODONE-ACETAMINOPHEN Inactive HYDROXYZINE HCL 25 MG ORAL TABLET take 1 every 4-6 hours as needed HYDROXYZINE HCL 25 MG ORAL TABLET 997529 HYDROXYZINE HCL Inactive ALPRAZOLAM 2 MG ORAL TABLET 1 tablet by mouth three times daily as needed ALPRAZOLAM 2 MG ORAL TABLET 233221 ALPRAZOLAM Inactive NEXIUM 40 MG ORAL CAPSULE DELAYED RELEASE 1 cap by mouth daily NEXIUM 40 MG ORAL CAPSULE DELAYED RELEASE 837919 ESOMEPRAZOLE MAGNESIUM Inactive Advance Directives Directive Description [...] temperature weight E&M 183 [lb_av] Weight Measured Encounters Code Encounter Date Provider Facility CPT-84023 Level 4 Est. Patient 12:51:46 CDT Wily Gonzalez [facility] CPT-59147 Level 4 Est. Patient 10:10:03 CDT Wily Zhang [facility] CPT-99141 Level 3 Est. Patient 14:25:57 CDT Wily Zhang [facility] CPT-94456 Level 3 Est. Patient 09:51:37 DATA MANAGEMENT ENGINEER Wily Gonzalez [facility] CPT-51298 Level 3 Est. Patient 11:07:48 CDT Wily Gonzalez [facility] CPT-13169 Level 3 Est. Patient 11:24:24 CDT Wily Zhang [facility] CPT-77029 Level 3 Est. Patient 15:19:54 DATA MANAGEMENT ENGINEER Wily Gonzalez [facility] CPT-03607 Level 3 Est. Patient 10:04:45 CDT Wily Gonzalez [facility] CPT-91173 Level 3 Est. Patient 13:04:06 CDT Wily Gonzalez [facility] CPT-30930 Level 3 Est. Patient 12:23:04 CDT Wily Gonzalez [facility] CPT-92909 Level 3 Est. Patient 15:43:10 DATA MANAGEMENT ENGINEER Wily Gonzalez [facility] CPT-75760 Level 3 Est. Patient 16:10:54 CDT Wily Gonzalez [facility] CPT-99188 Level 3 Est. Patient 19:50:51 CDT Wily Gonzalez [facility] CPT-95096 Level 3 Est. Patient 12:02:30 DATA MANAGEMENT ENGINEER Wily Gonzalez [facility] CPT-34120 Level 3 Est. Patient 12:03:11 DATA MANAGEMENT ENGINEER Wily Gonzalez [facility] CPT-32776 Level 3 Est. Patient 12:01:41 DATA MANAGEMENT ENGINEER Wily Gonzalez [facility] CPT-27189 Level 3 Est. Patient 11:51:24 DATA MANAGEMENT ENGINEER Wily Gonzalez [facility] CPT-38367 Level 3 Est. Patient 11:58:20 DATA MANAGEMENT ENGINEER Wily Gonzalez [facility] CPT-73075 Level 3 Est. Patient 08:31:36 DATA MANAGEMENT ENGINEER Wily Gonzalez [facility] CPT-32941 Level 3 Est. Patient 21:57:36 CDT Wily Gonzalez [facility] CPT-34133 Level 3 Est. Patient 10:49:58 CDT Esvin Hudson [facility] CPT-06561 Level 3 Est. Patient 11:22:52 CDT Esvin PAULA [facility] CPT-35586 Level 3 Est. Patient 13:49:41 CDT Esvin PAULA [facility] CPT-11889 Level 3 Est. Patient 11:54:53 CDT Esvin Hudson [facility] CPT-51273 Level 3 Est. Patient 09:07:11 CDT Esvin Hudson [facility] CPT-51266 Level 3 Est. Patient 13:52:47 CDT Esvin Tristan [facility] CPT-78950 Level 3 Est. Patient 11:26:46 CDT Esvin Hudson [facility] CPT-00334 Level 3 Est. Patient 10:25:00 DATA MANAGEMENT ENGINEER Esvin Hudson [facility] CPT-33842 Level 3 Est. Patient 11:39:11 DATA MANAGEMENT ENGINEER Esvin Hudson [facility] CPT-68068 Level 3 Est. Patient 13:24:24 DATA MANAGEMENT ENGINEER Esvin [place] [facility] CPT-54113 Level 3 Est. Patient 10:26:13 DATA MANAGEMENT ENGINEER Esvin [place] [facility] CPT-71656 Level 3 Est. Patient 10:21:21 CDT Esvin Tristan [facility] CPT-38774 Level 3 Est. Patient 10:26:30 CDT Esvin Tristan [facility] CPT-09659 Level 3 Est. Patient 09:16:37 CDT Esvin Tristan [facility] CPT-22911 Level 3 Est. Patient 09:06:58 CDT Esvin Tristan [facility] CPT-69883 Level 3 Est. Patient 10:05:29 CDT Esvin Tristan [facility] CPT-34124 Level 3 Est. Patient 10:38:45 CDT Esvin Trisatn PA [facility] CPT-46849 Level 3 Est. Patient 10:09:45 CDT Esvin Tristan [facility] CPT-15306 Level 3 Est. Patient 09:26:37 CDT Esvin Union PA [facility] CPT-49064 Level 3 Est. Patient 10:34:42 DATA MANAGEMENT ENGINEER Esvin Hudson [facility] CPT-59307 Level 3 Est. Patient 10:45:47 DATA MANAGEMENT ENGINEER Esvin Hudson [facility] CPT-56212 Level 3 Est. Patient 10:45:22 DATA MANAGEMENT ENGINEER Esvin Tristan [facility] CPT-62258 Level 3 Est. Patient 14:18:30 DATA MANAGEMENT ENGINEER Esvin Union [facility] CPT-79809 Level 3 Est. Patient 13:53:29 DATA MANAGEMENT ENGINEER Esvin [facility] CPT-59568 Level 3 Est. Patient 10:34:11 CDT [facility] Procedures Code Procedure Name Date Entry Date Standard Description CPT-07425 Smoking Cessation counseling 10:10:03 CDT CPT-66471 Smoking Cessation counseling 14:25:57 CDT CPT-73651 Bone Density - XRAY USE ONLY 11:29:32 CDT CPT-32310 LS spine AP and Lat - XRAY USE ONLY 10:07:43 DATA MANAGEMENT ENGINEER 10/26 CPT-16893 Venipuncture Draw Fee 09:51:16 DATA MANAGEMENT ENGINEER CPT-77499 Smoking Cessation counseling 09:39:47 DATA MANAGEMENT ENGINEER CPT-G0438 Initial Annual Wellness Exam 09:37:28 DATA MANAGEMENT ENGINEER CPT-62965 Venipuncture Draw Fee 09:26:55 CDT CPT-25247 Venipuncture Draw Fee 11:55:52 CDT CPT-39571 Spec Collection and Handling Fee 09:16:37 CDT CPT-29227 Venipuncture Draw Fee 09:16:37 CDT
[2018-02-26] MEDS ORDERED: METO-387 (14:31)
[2018-02-26] MEDS ORDERED: MORP100C16 (14:31)
[2018-02-26] MEDS ORDERED: ALPR2TAB6 (14:31)
[2018-02-26] MEDS ORDERED: CYCL10TA9 (14:31)
[2018-02-26] MEDS ORDERED: OXYC-465 (14:31)
--- OUTSIDE RECORDS SUMMARY | 2018-02-26 14:31 | XMS REPORT | Clinical Summary ---
Author Author Admin, E Organization [employer] Address Unknown Phone Unavailable Allergies, Adverse Reactions, [...] Wily Gonzalez DO Hemorrhoids ICD-455.6 Inactive Wily Goznalez DO 05/08 Nocturia ICD-788.43 Inactive Wily Gonzalez DO U T I ICD-599.0 Inactive Wily Gonzalez DO U R I ICD-465.9 Inactive Wily Gonzalez DO Medication List Medication Instructions Start Date Stop Date Generic Name [facility] Status Provider Patient Instruction CHANTIX 1 MG TABS 1 twice a day VARENICLINE TARTRATE [id number] No Longer Active Wily Gonzalez DO Active RAUL-MAG 500-250 MG ORAL TABS Take one by mouth daily CALCIUM- MAGNESIUM 54638300619 Active Wily Gonzalez DO Active FOSAMAX 70 MG TABS 1 po qweek. Take 30min prior to first food/drink. Avoid lying down x 1 hour. ALENDRONATE SODIUM 41519104746 Active Rose Bang Active CALCIUM 600 MG ORAL TABS 1 po q day CALCIUM 73730460777 Active Rose Bang Active TRIAMCINOLONE ACETONIDE 0.1 % CREA Apply to affected area 3 times daily for up to 2 weeks TRIAMCINOLONE ACETONIDE 00369711301 Active Wily Gonzalez DO Active [id number]-[id number] 167-83-8 MG TABS 1 tab po daily [id number] 14126709709 No Longer Active Wliy Gonzalez DO Active NYSTATIN 842832 UNIT/GM CREA apply to rash TID PRN NYSTATIN 17041519956 No Longer Active Wily Gonzalez DO Active POLY-IRON 150 150 MG CAPS 1 tab po bid POLYSACCHARIDE IRON COMPLEX 77858593677 No Longer Active Wily Gonzalez DO Active FLONASE ALLERGY RELIEF 50 MCG/ACT NASAL SUSP 2 sprays each nostril every day FLUTICASONE PROPIONATE 68865919315 Active Jodi Lucas APRN Active CLEMASTINE FUMARATE 1.34 MG ORAL TABS 1 tab PO BID CLEMASTINE FUMARATE 90104643433 No Longer Active Wily Gonzalez DO Active FLOMAX 0.4 MG CAPS 1 capsule in the evening for night time urination. TAMSULOSIN HCL 49901252850 No Longer Active Wily Gonzalez DO Active PROTONIX 40 MG TBEC 1 po daily PANTOPRAZOLE SODIUM 22861527545 Active Agnieszka Yeung Active HYDROXYZINE HCL 25 MG TAB 1 two times a day as needed for anxiety HYDROXYZINE HCL 36732038926 No Longer Active Wily Gonzalez DO Active ANUSOL-HC 25 MG SUPPOSITORY 1 rectally every 12 hours for irritation HYDROCORTISONE NAEL (RECTAL) 21720085344 No Longer Active Wily Gonzalez DO Active HYDROXYZINE HCL 25 MG TABS Take one (1) tablet by mouth twice a day HYDROXYZINE HCL 78388926953 No Longer Active Wily Gonzalez DO Active ZIAC 2.5-6.25 MG TAB 1 tablet daily for high blood pressure 10/27 BISOPROLOL-HCTZ 23003259383 No Longer Active Wily Gonzalez DO Active ZIAC 2.5-6.25 MG TAB 1 tablet every morning for high blood pressure BISOPROLOL-HCTZ 87939498971 No Longer Active Wily Gonzalez DO Active AMOXICILLIN 500 MG CAPS Take one (1) tablet by mouth three times a day 05/05 AMOXICILLIN 42796663727 No Longer Active Wily Gonzalez DO Active MORPHINE SULFATE ER 100 MG CR-TABS Take one (1) tablet by mouth twice a day MORPHINE SULFATE 38240896512 No Longer Active Wily Gonzalez DO Active MORPHINE SULFATE ER 100 MG [id number] 1 capsule twice daily for chronic pain MORPHINE SULFATE 09836016349 Active Lisa Berkowitz Active CIALIS 10 MG TABS 1 every 72 hours as needed TADALAFIL 20326180674 No Longer Active Esvin PAULA Active FLONASE 50 MCG/ACT SUSP 2 SPRAY EACH NARE DAILY FLUTICASONE PROPIONATE 52254164587 No Longer Active Esvin PAULA Active CYCLOBENZAPRINE HCL 10 MG TABS Take one (1) tablet by mouth three times a day CYCLOBENZAPRINE HCL 57536917318 Active Lisa Berkowitz Active OPANA ER (CRUSH RESISTANT) 40 MG [id number] Take one (1) tablet by mouth twice a day OXYMORPHONE HCL 36600449057 No Longer Active Esvin PAULA Active PROAIR HFA 108 (90 BASE) MCG/ACT AERS 2 puffs every four hours as needed ALBUTEROL SULFATE 87415359155 No Longer Active Esvin PAULA Active CLEARLAX POWD 17gm q day prn constipation POLYETHYLENE GLYCOL 3350 22219216983 Active Wily Gonzalez DO Active MORPHINE SULFATE ER 100 MG [id number] Take one (1) tablet by mouth twice a day MORPHINE SULFATE 34752615834 No Longer Active Esvin PAULA Active FLEXERIL 10 MG TAB 1 tablet by mouth 3 times daily as needed CYCLOBENZAPRINE HCL 20198972715 No Longer Active Esvin PAULA Active CELEBREX 200 MG CAPS 1 tablet by mouth twice daily with meals CELECOXIB 78240646085 No Longer Active Esvin PAULA Active NEXIUM 40 MG CPDR 1 cap daily ESOMEPRAZOLE MAGNESIUM 69654367888 No Longer Active Esvin PAULA Active MOBIC 15 MG TABS 1 tab daily MELOXICAM 02911852494 No Longer Active Esvin PAULA Active LISINOPRIL 20 MG TABS Take 1 tablet by mouth daily LISINOPRIL 20785191045 No Longer Active Esvin PAULA Active DICLOFENAC SODIUM 50 MG TBEC 1 tablet by mouth four times daily DICLOFENAC SODIUM 55513608218 No Longer Active Paula Cooney RN Active VERAMYST 27.5 MCG/SPRAY SUSP 2 spray each nare daily FLUTICASONE FUROATE 19861705595 No Longer Active Megan Vargas RN Active ENDOCET 10-325 MG TABS Take one (1) tablet by mouth three times a day OXYCODONE-ACETAMINOPHEN 24744890095 Active Lisa Berkowitz Active ALPRAZOLAM 2 MG TABS Take one (1) tablet by mouth three times a day ALPRAZOLAM 41675585678 Active Lisa Berkowitz Active NEXIUM 40 MG CPDR 1 cap by mouth daily ESOMEPRAZOLE MAGNESIUM 30160690980 No Longer Active Esvin PAULA Active ALPRAZOLAM 2 MG TABS 1 tablet by mouth three times daily as needed ALPRAZOLAM 04122345189 No Longer Active Esvin PAULA Active HYDROXYZINE HCL 25 MG TAB take 1 every 4-6 hours as needed 07/01 HYDROXYZINE HCL 77927162705 No Longer Active Esvin PAULA Active ENDOCET 10-325 MG TABS 1 by mouth twice a day OXYCODONE-ACETAMINOPHEN 13513237048 No Longer Active Esvin PAULA Active MS CONTIN 100 MG [id number] 1 by mouth twice a day MORPHINE SULFATE 14520889305 No Longer Active Esvin PAULA Active SUDAFED 30 MG TAB 1-2 every 4-6 hours as needed PSEUDOEPHEDRINE HCL 05417988622 Active Rose Bang Active VERAMYST 27.5 MCG/SPRAY SUSP 2 spray each nare daily VERAMYST 27.5 MCG/SPRAY SUSP FLUTICASONE FUROATE Inactive DICLOFENAC SODIUM 50 MG TBEC 1 tablet by mouth four times daily DICLOFENAC SODIUM 50 MG TBEC 276162 DICLOFENAC SODIUM Inactive LISINOPRIL 20 MG TABS Take 1 tablet by mouth daily LISINOPRIL 20 MG TABS 819891 LISINOPRIL Inactive MOBIC 15 MG TABS 1 tab daily MOBIC 15 MG TABS 369107 MELOXICAM Inactive NEXIUM 40 MG CPDR 1 cap daily NEXIUM 40 MG CPDR 249694 ESOMEPRAZOLE MAGNESIUM Inactive CELEBREX 200 MG CAPS 1 tablet by mouth twice daily with meals CELEBREX 200 MG CAPS 915372 CELECOXIB Inactive FLEXERIL 10 MG TAB 1 tablet by mouth 3 times daily as needed FLEXERIL 10 MG TAB CYCLOBENZAPRINE HCL Inactive PROAIR HFA 108 (90 BASE) MCG/ACT AERS 2 puffs every four hours as needed PROAIR HFA 108 (90 BASE) MCG/ACT AERS ALBUTEROL SULFATE Inactive FLONASE 50 MCG/ACT SUSP 2 SPRAY EACH NARE DAILY FLONASE 50 MCG/ACT SUSP 2138191 FLUTICASONE PROPIONATE Inactive CIALIS 10 MG TABS 1 every 72 hours as needed CIALIS 10 MG TABS TADALAFIL Inactive MORPHINE SULFATE ER 100 MG CR-TABS Take one (1) tablet by mouth twice a day MORPHINE SULFATE ER 100 MG CR-TABS MORPHINE SULFATE Inactive AMOXICILLIN 500 MG CAPS Take one (1) tablet by mouth three times a day 05/05 AMOXICILLIN 500 MG CAPS 996642 AMOXICILLIN Inactive ZIAC 2.5-6.25 MG TAB 1 tablet every morning for high blood pressure ZIAC 2.5-6.25 MG TAB 073694 BISOPROLOL-HCTZ Inactive ZIAC 2.5-6.25 MG TAB 1 tablet daily for high blood pressure 10/27 ZIAC 2.5-6.25 MG TAB 901067 BISOPROLOL-HCTZ Inactive HYDROXYZINE HCL 25 MG TABS Take one (1) tablet by mouth twice a day HYDROXYZINE HCL 25 MG TABS 688156 HYDROXYZINE HCL Inactive ANUSOL-HC 25 MG SUPPOSITORY 1 rectally every 12 hours for irritation ANUSOL-HC 25 MG SUPPOSITORY 4971882 HYDROCORTISONE NAEL (RECTAL ) Inactive HYDROXYZINE HCL 25 MG TAB 1 two times a day as needed for anxiety HYDROXYZINE HCL 25 MG TAB 388365 HYDROXYZINE HCL Inactive FLOMAX 0.4 MG CAPS 1 capsule in the evening for night time urination. FLOMAX 0.4 MG CAPS 346483 TAMSULOSIN HCL Inactive CLEMASTINE FUMARATE 1.34 MG ORAL TABS 1 tab PO BID CLEMASTINE FUMARATE 1.34 MG ORAL TABS 967591 CLEMASTINE FUMARATE Inactive POLY-IRON 150 150 MG CAPS 1 tab po bid POLY-IRON 150 150 MG CAPS POLYSACCHARIDE IRON COMPLEX Inactive NYSTATIN 899122 UNIT/GM CREA apply to rash TID PRN NYSTATIN 490296 UNIT/GM CREA 833961 NYSTATIN Inactive EKKJDRZ-FFTIAUXNR-TFSX 167-83-8 MG TABS 1 tab po daily LYYLHMS-EJIFVHGGQ-VGFV 167-83-8 MG TABS IPSUOKL-GUNBVBQJU-YKUY Inactive CHANTIX 1 MG TABS 1 twice a day CHANTIX 1 MG TABS VARENICLINE TARTRATE Inactive MS CONTIN 100 MG [id number] 1 by mouth twice a day MS CONTIN 100 MG [id number]-[facility] MORPHINE SULFATE Inactive ENDOCET 10-325 MG TABS 1 by mouth twice a day ENDOCET 10-325 MG TABS 7174870 OXYCODONE-ACETAMINOPHEN Inactive HYDROXYZINE HCL 25 MG TAB take 1 every 4-6 hours as needed 07/01 HYDROXYZINE HCL 25 MG TAB 912046 HYDROXYZINE HCL Inactive ALPRAZOLAM 2 MG TABS 1 tablet by mouth three times daily as needed ALPRAZOLAM 2 MG TABS 086017 ALPRAZOLAM Inactive NEXIUM 40 MG CPDR 1 cap by mouth daily NEXIUM 40 MG CPDR 921878 ESOMEPRAZOLE MAGNESIUM Inactive Advance Directives Directive Description [...] Measured Encounters Code Encounter Date Provider Facility CPT-12018 Level 4 Est. Patient 10:10:03 CDT Wily Zhang [facility] CPT-34188 Level 3 Est. Patient 14:25:57 CDT Wily Zhang [facility] CPT-52741 Level 3 Est. Patient 09:51:37 GAS METER CHECKER Wily Gonzalez [facility] CPT-14960 Level 3 Est. Patient 11:07:48 CDT Wily Zhang [facility] CPT-71070 Level 3 Est. Patient 11:24:24 CDT Wily Gonzalez [facility] CPT-65232 Level 3 Est. Patient 15:19:54 GAS METER CHECKER Wily Zhang [facility] CPT-80120 Level 3 Est. Patient 10:04:45 CDT Wily Gonzalez [facility] CPT-20437 Level 3 Est. Patient 13:04:06 CDT Wily Gonzalez [facility] CPT-61227 Level 3 Est. Patient 12:23:04 CDT Wily Gonzalez [facility] CPT-56757 Level 3 Est. Patient 15:43:10 GAS METER CHECKER Wily Gonzalez [facility] CPT-36450 Level 3 Est. Patient 16:10:54 CDT Wily Gonzalez [facility] CPT-96286 Level 3 Est. Patient 19:50:51 CDT Wily Gonzalez [facility] CPT-95585 Level 3 Est. Patient 12:02:30 GAS METER CHECKER Wily Gonzalez [facility] CPT-52576 Level 3 Est. Patient 12:03:11 GAS METER CHECKER Wily oGnzalez [facility] CPT-66607 Level 3 Est. Patient 12:01:41 GAS METER CHECKER Wily Gonzalez [facility] CPT-12452 Level 3 Est. Patient 11:51:24 GAS METER CHECKER Wily Gonzalez [facility] CPT-54894 Level 3 Est. Patient 11:58:20 GAS METER CHECKER Wily Gonzalez [facility] CPT-18699 Level 3 Est. Patient 08:31:36 GAS METER CHECKER Wily Gonzalez [facility] CPT-29349 Level 3 Est. Patient 21:57:36 CDT Wily Gonzalez [facility] CPT-78527 Level 3 Est. Patient 10:49:58 CDT Esvin PAULA [facility] CPT-75076 Level 3 Est. Patient 11:22:52 CDT Esvin PAULA [facility] CPT-13247 Level 3 Est. Patient 13:49:41 CDT Esvin PAULA [facility] CPT-13223 Level 3 Est. Patient 11:54:53 CDT Esvin Hudson CHAI [facility] CPT-36668 Level 3 Est. Patient 09:07:11 CDT Esvin PAULA [facility] CPT-81464 Level 3 Est. Patient 13:52:47 CDT Esvin Hudson [facility] CPT-15876 Level 3 Est. Patient 11:26:46 CDT Esvin PAULA [facility] CPT-95048 Level 3 Est. Patient 10:25:00 GAS METER CHECKER Esvin Hudson CHAI [facility] CPT-39946 Level 3 Est. Patient 11:39:11 GAS METER CHECKER Esvin Hudson CHAI [facility] CPT-16140 Level 3 Est. Patient 13:24:24 GAS METER CHECKER Esvin Hudson CH[facility] CPT-97072 Level 3 Est. Patient 10:26:13 GAS METER CHECKER Esvin PAULA [facility] CPT-72777 Level 3 Est. Patient 10:21:21 CDT Esvin Hudson [facility] CPT-54856 Level 3 Est. Patient 10:26:30 CDT Esvin Hudson [facility] CPT-58517 Level 3 Est. Patient 09:16:37 CDT Esvin Hudson [facility]-77799 Level 3 Est. Patient 09:06:58 CDT Esvin Hudson [facility] CPT-88744 Level 3 Est. Patient 10:05:29 CDT Esvin Tristan [facility] CPT-10976 Level 3 Est. Patient 10:38:45 CDT Esvin Tristan [facility] CPT-71457 Level 3 Est. Patient 10:09:45 CDT Esvin Hudson [facility] CPT-43275 Level 3 Est. Patient 09:26:37 CDT Esvin Hudosn [facility] CPT-58391 Level 3 Est. Patient 10:34:42 GAS METER CHECKER Esvin Hudson [facility] CPT-86471 Level 3 Est. Patient 10:45:47 GAS METER CHECKER Esvin Tristan [facility] CPT-01715 Level 3 Est. Patient 10:45:22 GAS METER CHECKER Esvin [facility] CPT-98038 Level 3 Est. Patient 14:18:30 GAS METER CHECKER Esvin [facility] CPT-76579 Level 3 Est. Patient 13:53:29 GAS METER CHECKER Esvin [facility] CPT-29286 Level 3 Est. Patient 10:34:11 CDT Esvin [facility] Procedures Code Procedure Name Date Entry Date Standard Description CPT-55736 Smoking Cessation counseling 10:10:03 CDT CPT-86845 Smoking Cessation counseling 14:25:57 CDT CPT-99347 Bone Density - XRAY USE ONLY 11:29:32 CDT CPT-09284 LS spine AP and Lat - XRAY USE ONLY 10:07:43 GAS METER CHECKER 10/26 CPT-96783 Venipuncture Draw Fee 09:51:16 GAS METER CHECKER CPT-60699 Smoking Cessation counseling 09:39:47 GAS METER CHECKER CPT-G0438 Initial Annual Wellness Exam 09:37:28 GAS METER CHECKER CPT-96845 Venipuncture Draw Fee 09:26:55 CDT CPT-47261 Venipuncture Draw Fee 11:55:52 CDT CPT-23292 Spec Collection and Handling Fee 09:16:37 CDT CPT-55308 Venipuncture Draw Fee 09:16:37 CDT
--- OUTSIDE RECORDS SUMMARY | 2018-02-26 14:31 | XMS REPORT | Clinical Summary ---
[...] TABS 1 tab PO BID CLEMASTINE FUMARATE [id number] No Longer Active Wily Gonzalez DO Active FLOMAX 0.4 MG CAPS 1 capsule in the evening for night time urination. TAMSULOSIN HCL 58341609016 No Longer Active Wily Gonzalez DO Active PROTONIX 40 MG TBEC 1 po daily PANTOPRAZOLE SODIUM 45841655884 Active Wily Gonzalez DO Active HYDROXYZINE HCL 25 MG TAB 1 two times a day as needed for anxiety HYDROXYZINE HCL 73719070696 No Longer Active Wily Gonzalez DO Active ANUSOL-HC 25 MG SUPPOSITORY 1 rectally every 12 hours for irritation HYDROCORTISONE NAEL (RECTAL) 11810195618 No Longer Active Wily Gonzalez DO Active HYDROXYZINE HCL 25 MG TABS Take one (1) tablet by mouth twice a day HYDROXYZINE HCL 10404141000 No Longer Active Wily Gonzalez DO Active ZIAC 2.5-6.25 MG TAB 1 tablet daily for high blood pressure 10/27 BISOPROLOL-HCTZ 69363527484 No Longer Active Wily Gonzalez DO Active [id number] 167-83-8 MG TABS 1 tab po daily CALCIUM -MAGNESIUM-ZINC 50722198203 Active Wily Gonzalez DO Active NYSTATIN 325835 UNIT/GM CREA apply to rash TID PRN NYSTATIN 96160226700 Active Wily Gonzalez DO Active ZIAC 2.5-6.25 MG TAB 1 tablet every morning for high blood pressure BISOPROLOL-HCTZ 80929136170 No Longer Active Wily Gonzalez DO Active AMOXICILLIN 500 MG CAPS Take one (1) tablet by mouth three times a day 05/05 AMOXICILLIN 88320233037 No Longer Active Wily Gonzalez DO Active MORPHINE SULFATE ER 100 MG CR-TABS Take one (1) tablet by mouth twice a day MORPHINE SULFATE 19497238690 No Longer Active Wily Gonzalez DO Active MORPHINE SULFATE ER 100 MG [id number] 1 capsule twice daily for chronic pain MORPHINE SULFATE 68025248606 Active Wily Gonzalez DO Active FLONASE 50 MCG/ACT SUSP 2 sprays each nare q day FLUTICASONE PROPIONATE 81693327098 Active Rudy Cheung MD Active CIALIS 10 MG TABS 1 every 72 hours as needed TADALAFIL 80189884267 No Longer Active Esvin PAULA Active FLONASE 50 MCG/ACT SUSP 2 SPRAY EACH NARE DAILY FLUTICASONE PROPIONATE 66039348128 No Longer Active Esvin PAULA Active CYCLOBENZAPRINE HCL 10 MG TABS Take one (1) tablet by mouth three times a day CYCLOBENZAPRINE HCL 56239558089 Active Wily Gonzalez DO Active OPANA ER (CRUSH RESISTANT) 40 MG [id number] Take one (1) tablet by mouth twice a day OXYMORPHONE HCL 96666418952 No Longer Active Esvin PAULA Active POLY-IRON 150 150 MG CAPS 1 tab po bid POLYSACCHARIDE IRON COMPLEX 79502759539 Active Esvin PAULA Active PROAIR HFA 108 (90 BASE) MCG/ACT AERS 2 puffs every four hours as needed ALBUTEROL SULFATE 31971371325 No Longer Active Esvin PAULA Active CLEARLAX POWD 17gm q day prn constipation POLYETHYLENE GLYCOL 3350 78802396685 Active Jonas PAULA Active MORPHINE SULFATE ER 100 MG [id number] Take one (1) tablet by mouth twice a day MORPHINE SULFATE 97777067622 No Longer Active Esvin PAULA Active FLEXERIL 10 MG TAB 1 tablet by mouth 3 times daily as needed CYCLOBENZAPRINE HCL 71524367399 No Longer Active Esvin PAULA Active CELEBREX 200 MG CAPS 1 tablet by mouth twice daily with meals CELECOXIB 86173586643 No Longer Active Esvin PAULA Active NEXIUM 40 MG CPDR 1 cap daily ESOMEPRAZOLE MAGNESIUM 06558248116 No Longer Active Esvin PAULA Active MOBIC 15 MG TABS 1 tab daily MELOXICAM 65394379312 No Longer Active Esvin PAULA Active LISINOPRIL 20 MG TABS Take 1 tablet by mouth daily LISINOPRIL 01195855373 No Longer Active Esvin PAULA Active DICLOFENAC SODIUM 50 MG TBEC 1 tablet by mouth four times daily DICLOFENAC SODIUM 13518572715 No Longer Active Paula Cooney RN Active VERAMYST 27.5 MCG/SPRAY SUSP 2 spray each nare daily FLUTICASONE FUROATE 62540323184 No Longer Active Megan Vargas RN Active ENDOCET 10-325 MG TABS Take one (1) tablet by mouth three times a day OXYCODONE-ACETAMINOPHEN 45823759076 Active Wily Gonzalez DO Active ALPRAZOLAM 2 MG TABS Take one (1) tablet by mouth three times a day ALPRAZOLAM 59351507103 Active Wily Gonzalez DO Active NEXIUM 40 MG CPDR 1 cap by mouth daily ESOMEPRAZOLE MAGNESIUM 03250888970 No Longer Active Esvin PAULA Active ALPRAZOLAM 2 MG TABS 1 tablet by mouth three times daily as needed ALPRAZOLAM 26571553843 No Longer Active Esvin PAULA Active HYDROXYZINE HCL 25 MG TAB take 1 every 4-6 hours as needed 07/01 HYDROXYZINE HCL 65417169741 No Longer Active Esvin PAULA Active ENDOCET 10-325 MG TABS 1 by mouth twice a day OXYCODONE-ACETAMINOPHEN 50090070189 No Longer Active Esvin PAULA Active MS CONTIN 100 MG [id number] 1 by mouth twice a day MORPHINE SULFATE 72671796313 No Longer Active Esvin PAULA Active SUDAFED 30 MG TAB 1-2 every 4-6 hours as needed PSEUDOEPHEDRINE HCL 43719170947 Active Wily Gonzalez DO Active VERAMYST 27.5 MCG/SPRAY SUSP 2 spray each nare daily VERAMYST 27.5 MCG/SPRAY SUSP FLUTICASONE FUROATE Inactive DICLOFENAC SODIUM 50 MG TBEC 1 tablet by mouth four times daily DICLOFENAC SODIUM 50 MG TBEC 443037 DICLOFENAC SODIUM Inactive LISINOPRIL 20 MG TABS Take 1 tablet by mouth daily LISINOPRIL 20 MG TABS 371560 LISINOPRIL Inactive MOBIC 15 MG TABS 1 tab daily MOBIC 15 MG TABS 309784 MELOXICAM Inactive NEXIUM 40 MG CPDR 1 cap daily NEXIUM 40 MG CPDR ESOMEPRAZOLE MAGNESIUM Inactive CELEBREX 200 MG CAPS 1 tablet by mouth twice daily with meals CELEBREX 200 MG CAPS 537903 CELECOXIB Inactive FLEXERIL 10 MG TAB 1 tablet by mouth 3 times daily as needed FLEXERIL 10 MG TAB CYCLOBENZAPRINE HCL Inactive PROAIR HFA 108 (90 BASE) MCG/ACT AERS 2 puffs every four hours as needed PROAIR HFA 108 (90 BASE) MCG/ACT AERS ALBUTEROL SULFATE Inactive FLONASE 50 MCG/ACT SUSP 2 SPRAY EACH NARE DAILY FLONASE 50 MCG/ACT SUSP 090572 FLUTICASONE PROPIONATE Inactive CIALIS 10 MG TABS 1 every 72 hours as needed CIALIS 10 MG TABS TADALAFIL Inactive MORPHINE SULFATE ER 100 MG CR-TABS Take one (1) tablet by mouth twice a day MORPHINE SULFATE ER 100 MG CR-TABS MORPHINE SULFATE Inactive AMOXICILLIN 500 MG CAPS Take one (1) tablet by mouth three times a day 05/05 AMOXICILLIN 500 MG CAPS 274288 AMOXICILLIN Inactive ZIAC 2.5-6.25 MG TAB 1 tablet every morning for high blood pressure ZIAC 2.5-6.25 MG TAB 022963 BISOPROLOL-HCTZ Inactive ZIAC 2.5-6.25 MG TAB 1 tablet daily for high blood pressure 10/27 ZIAC 2.5-6.25 MG TAB 953077 BISOPROLOL-HCTZ Inactive HYDROXYZINE HCL 25 MG TABS Take one (1) tablet by mouth twice a day HYDROXYZINE HCL 25 MG TABS 050132 HYDROXYZINE HCL Inactive ANUSOL-HC 25 MG SUPPOSITORY 1 rectally every 12 hours for irritation ANUSOL-HC 25 MG SUPPOSITORY 3391901 HYDROCORTISONE NAEL (RECTAL ) Inactive HYDROXYZINE HCL 25 MG TAB 1 two times a day as needed for anxiety HYDROXYZINE HCL 25 MG TAB 087473 HYDROXYZINE HCL Inactive FLOMAX 0.4 MG CAPS 1 capsule in the evening for night time urination. FLOMAX 0.4 MG CAPS 896422 TAMSULOSIN HCL Inactive CLEMASTINE FUMARATE 1.34 MG ORAL TABS 1 tab PO BID CLEMASTINE FUMARATE 1.34 MG ORAL TABS 881512 CLEMASTINE FUMARATE Inactive MS CONTIN 100 MG [id number] 1 by mouth twice a day MS CONTIN 100 MG [id number] MORPHINE SULFATE Inactive ENDOCET 10-325 MG TABS 1 by mouth twice a day ENDOCET 10-325 MG TABS 9539530 OXYCODONE-ACETAMINOPHEN Inactive HYDROXYZINE HCL 25 MG TAB take 1 every 4-6 hours as needed 07/01 HYDROXYZINE HCL 25 MG TAB 405447 HYDROXYZINE HCL Inactive ALPRAZOLAM 2 MG TABS 1 tablet by mouth three times daily as needed ALPRAZOLAM 2 MG TABS 791416 ALPRAZOLAM Inactive NEXIUM 40 MG CPDR 1 [...] Name Value Unit Range Description Lab Report: CBC, Comp. Metabolic Panel, Thyroid Stimulating Hormone (L), ... - Chemistry sodium, serum 138 mmol/L 164-880 8454/04/13 potassium, serum 4.9 mmol/L 3.5-5.2 chloride, serum [...] [phone] Encounters Code Encounter Date Provider Facility [id number] Level 3 Est. Patient 12:23:04 CDT Wily Gonzalez [facility] CPT-50959 Level 3 Est. Patient 15:43:10 [employer]ING [employer] Wily Gonzalez [facility] CPT-96984 Level 3 Est. Patient 16:10:54 CDT Wily Gonzalez [facility] CPT-56956 Level 3 Est. Patient 19:50:51 CDT Wily Gonzalez [facility] CPT-95781 Level 3 Est. Patient 12:02:30 [employer]ING [employer] Wily Gonzalez [facility] CPT-43315 Level 3 Est. Patient 12:03:11 GAMING [employer]AGE [employer] Wily Gonzalez [facility] CPT-57070 Level 3 Est. Patient 12:01:41 GAMING [employer]AGE [employer] Wily Gonzalez [facility] CPT-84976 Level 3 Est. Patient 11:51:24 GAMING [employer]AGE [employer] Wily Gonzalez [facility] CPT-87251 Level 3 Est. Patient 11:58:20 GAMING [employer]AGE [employer] Wily Gonzalez [facility] CPT-56842 Level 3 Est. Patient 08:31:36 G[employer]ING [employer] Wily Gonzalez [facility] CPT-91272 Level 3 Est. Patient 21:57:36 CDT Wily Vicente Gonzalez [facility] CPT-33619 Level 3 Est. Patient 10:49:58 CDT Esvin PAULA [facility] CPT-30227 Level 3 Est. Patient 11:22:52 CDT Esvin PAULA [facility] CPT-14188 Level 3 Est. Patient 13:49:41 CDT Esvin PAULA [facility] CPT-77961 Level 3 Est. Patient 11:54:53 CDT Esvin Hudson [facility] CPT-77258 Level 3 Est. Patient 09:07:11 CDT Esvin PAULA [facility] CPT-48785 Level 3 Est. Patient 13:52:47 CDT Esvin PAULA [facility] CPT-78017 Level 3 Est. Patient 11:26:46 CDT Esvin PAULA [facility] CPT-72237 Level 3 Est. Patient 10:25:00 GAMING CAGE [employer] Esvin Hudson [facility] CPT-12245 Level 3 Est. Patient 11:39:11 GAMING CAGE C[employer]IER Esvin Hudson [facility] CPT-44402 Level 3 Est. Patient 13:24:24 GAMING CAGE C[employer] Esvin Hudson [facility] CPT-73713 Level 3 Est. Patient 10:26:13 GAMING CAGE C[employer]IER Esvin Hudson [facility] CPT-62890 Level 3 Est. Patient 10:21:21 CDT Esvin Hudson [facility] CPT-22951 Level 3 Est. Patient 10:26:30 CDT Esvin Hudson [facility] CPT-40569 Level 3 Est. Patient 09:16:37 CDT Esvin Hudson [facility]-87474 Level 3 Est. Patient 09:06:58 CDT Esvin Hudson [facility] CPT-26278 Level 3 Est. Patient 10:05:29 CDT Esvin Hudson [facility] CPT-92439 Level 3 Est. Patient 10:38:45 CDT Esvin Tristan [facility] CPT-67197 Level 3 Est. Patient 10:09:45 CDT Esvin Langdon PA [facility] CPT-42355 Level 3 Est. Patient 09:26:37 CDT Esvin Langdon [facility] CPT-10308 Level 3 Est. Patient 10:34:42 GAMING [employer]AGE [employer] Esvin Tristan [facility] CPT-62478 Level 3 Est. Patient 10:45:47 GAMING CAGE C[employer]IER Esvin Tristan [facility] CPT-21190 Level 3 Est. Patient 10:45:22 GAMING CAGE C[employer] Esvin Langdon [facility] CPT-66435 Level 3 Est. Patient 14:18:30 GAMING CAGE C[employer] Esvin Tristan [facility] CPT-60298 Level 3 Est. Patient 13:53:29 GAMING CAGE [employer] Esvin Langdon [facility] CPT-13398 Level 3 Est. Patient 10:34:11 CDT Esvin Langdon [facility] Procedures Code Procedure Name Date Entry Date Standard Description CPT-80410 Venipuncture Draw Fee 09:26:55 CDT CPT-81279 Venipuncture Draw Fee 11:55:52 CDT CPT-75206 Spec Collection and Handling Fee 09:16:37 CDT CPT-31404 Venipuncture Draw Fee 09:16:37 CDT
--- OUTSIDE RECORDS SUMMARY | 2018-02-26 14:32 | XMS REPORT | Clinical Summary ---
Author Author Admin, E Organization [employer] Address Unknown Phone Unavailable Allergies, Adverse Reactions, [...] TABLET 1 twice a day VARENICLINE TARTRATE [id number] No Longer Active Wily Gonzalez DO Active RAUL-MAG 500-250 MG ORAL TABLET Take one by mouth daily CALCIUM -MAGNESIUM 91064887822 Active Wily Gonzalez DO Active FOSAMAX 70 MG ORAL TABLET 1 po qweek. Take 30min prior to first food/drink. Avoid lying down x 1 hour. ALENDRONATE SODIUM 17198456186 Active Laurie Latham LPN Active CALCIUM 600 MG ORAL TABLET 1 po q day CALCIUM 00026560926 Active Rose Bang Active TRIAMCINOLONE ACETONIDE 0.1 % EXTERNAL CREAM Apply to affected area 3 times daily for up to 2 weeks TRIAMCINOLONE ACETONIDE 34482758793 Active Wily Gonzalez DO Active [id number]-[id number]-LQXM 167-83-8 MG ORAL TABLET 1 tab po daily [id number]-[id number]-CBJR 32504183670 No Longer Active Wily Gonzalez DO Active NYSTATIN 031807 UNIT/GM EXTERNAL CREAM apply to rash TID PRN 2015 NYSTATIN 59089434304 No Longer Active Wliy Gonzalez DO Active POLY-IRON 150 150 MG ORAL CAPSULE 1 tab po bid POLYSACCHARIDE IRON COMPLEX 40491274235 No Longer Active Wily Gonzalez DO Active FLONASE ALLERGY RELIEF 50 MCG/ACT NASAL SUSPENSION 2 sprays each nostril every day FLUTICASONE PROPIONATE 16793588411 Active Wily Gonzalez DO Active CLEMASTINE FUMARATE 1.34 MG ORAL TABLET 1 tab PO BID CLEMASTINE FUMARATE 27904844638 No Longer Active Wily Gonzalez DO Active FLOMAX 0.4 MG ORAL CAPSULE 1 capsule in the evening for night time urination. TAMSULOSIN HCL 56468560816 No Longer Active Wily Gonzalez DO Active PROTONIX 40 MG ORAL TABLET DELAYED RELEASE 1 po daily PANTOPRAZOLE SODIUM 89220593482 Active Lisa Berkowitz Active HYDROXYZINE HCL 25 MG ORAL TABLET 1 two times a day as needed for anxiety HYDROXYZINE HCL 59872182947 No Longer Active Wily Gonzalez DO Active ANUSOL-HC 25 MG RECTAL SUPPOSITORY 1 rectally every 12 hours for irritation HYDROCORTISONE NAEL (RECTAL) 39213818324 No Longer Active Wily Gonzalez DO Active HYDROXYZINE HCL 25 MG ORAL TABLET Take one (1) tablet by mouth twice a day HYDROXYZINE HCL 18530624676 No Longer Active Wily Gonzalez DO Active ZIAC 2.5-6.25 MG ORAL TABLET 1 tablet daily for high blood pressure BISOPROLOL-HCTZ 66564271745 No Longer Active Wily Gonzalez DO Active ZIAC 2.5-6.25 MG ORAL TABLET 1 tablet every morning for high blood pressure BISOPROLOL-HCTZ 04538320055 No Longer Active Wily Gonzalez DO Active AMOXICILLIN 500 MG ORAL CAPSULE Take one (1) tablet by mouth three times a day AMOXICILLIN 24219359999 No Longer Active Wily Gonzalez DO Active MORPHINE SULFATE ER 100 MG ORAL TABLET EXTENDED RELEASE Take one (1) tablet by mouth twice a day MORPHINE SULFATE 10980578050 No Longer Active Wily Gonzalez DO Active MORPHINE SULFATE ER 100 MG ORAL CAPSULE EXTENDED RELEASE 24 HOUR 1 capsule twice daily for chronic pain MORPHINE SULFATE 19654857674 Active Wily Gonzalez DO Active CIALIS 10 MG ORAL TABLET 1 every 72 hours as needed TADALAFIL 61799359990 No Longer Active Esvin PAULA Active FLONASE 50 MCG/ACT NASAL SUSPENSION 2 SPRAY EACH NARE DAILY 05/08 FLUTICASONE PROPIONATE 80644445905 No Longer Active Esvin PAULA Active CYCLOBENZAPRINE HCL 10 MG ORAL TABLET Take one (1) tablet by mouth three times a day CYCLOBENZAPRINE HCL 18585746818 Active Lisa Berkowitz Active OPANA ER 40 MG ORAL TABLET ER 12 HOUR ABUSE-DETERRENT Take one (1) tablet by mouth twice a day OXYMORPHONE HCL 45013928138 No Longer Active Esvin PAULA Active PROAIR HFA 108 (90 Base) MCG/ACT INHALATION AEROSOL SOLUTION 2 puffs every four hours as needed ALBUTEROL SULFATE 35153590317 No Longer Active Esvin PAULA Active CLEARLAX ORAL POWDER 17gm q day prn constipation POLYETHYLENE GLYCOL 3350 52846627008 Active Wily Gonzalez DO Active MORPHINE SULFATE ER 100 MG ORAL CAPSULE EXTENDED RELEASE 24 HOUR Take one (1) tablet by mouth twice a day MORPHINE SULFATE 20466079945 No Longer Active Esvin PAULA Active FLEXERIL 10 MG TAB 1 tablet by mouth 3 times daily as needed CYCLOBENZAPRINE HCL 78949876192 No Longer Active Esvin PAULA Active CELEBREX 200 MG ORAL CAPSULE 1 tablet by mouth twice daily with meals 2012 CELECOXIB 98092600123 No Longer Active Esvin PAULA Active NEXIUM 40 MG ORAL CAPSULE DELAYED RELEASE 1 cap daily ESOMEPRAZOLE MAGNESIUM 29329874017 No Longer Active Esvin PAULA Active MOBIC 15 MG ORAL TABLET 1 tab daily MELOXICAM 01953457576 No Longer Active Esvin PAULA Active LISINOPRIL 20 MG ORAL TABLET Take 1 tablet by mouth daily LISINOPRIL 68105663295 No Longer Active Esvin PAULA Active DICLOFENAC SODIUM 50 MG ORAL TABLET DELAYED RELEASE 1 tablet by mouth four times daily DICLOFENAC SODIUM 95311869378 No Longer Active Paula Cooney RN Active VERAMYST 27.5 MCG/SPRAY NASAL SUSPENSION 2 spray each nare daily FLUTICASONE FUROATE 65858183962 No Longer Active Megan Vargas RN Active ENDOCET 10-325 MG ORAL TABLET Take one (1) tablet by mouth three times a day OXYCODONE-ACETAMINOPHEN 94447431256 Active Wily Gonzalez DO Active ALPRAZOLAM 2 MG ORAL TABLET Take one (1) tablet by mouth three times a day ALPRAZOLAM 74492849274 Active Rose Bang Active NEXIUM 40 MG ORAL CAPSULE DELAYED RELEASE 1 cap by mouth daily ESOMEPRAZOLE MAGNESIUM 02943826602 No Longer Active Esvin PAULA Active ALPRAZOLAM 2 MG ORAL TABLET 1 tablet by mouth three times daily as needed ALPRAZOLAM 05148175162 No Longer Active Esvin PAULA Active HYDROXYZINE HCL 25 MG ORAL TABLET take 1 every 4-6 hours as needed HYDROXYZINE HCL 05635690443 No Longer Active Esvin PAULA Active ENDOCET 10-325 MG ORAL TABLET 1 by mouth twice a day OXYCODONE-ACETAMINOPHEN 20220162316 No Longer Active Evsin PAULA Active MS CONTIN 100 MG ORAL TABLET EXTENDED RELEASE 1 by mouth twice a day MORPHINE SULFATE 48424894287 No Longer Active Esvin PAULA Active SUDAFED 30 MG ORAL TABLET 1-2 every 4-6 hours as needed PSEUDOEPHEDRINE HCL 06796437379 Active Wily Gonzalez DO Active VERAMYST 27.5 MCG/SPRAY NASAL SUSPENSION 2 spray each nare daily VERAMYST 27.5 MCG/SPRAY NASAL SUSPENSION FLUTICASONE FUROATE Inactive DICLOFENAC SODIUM 50 MG ORAL TABLET DELAYED RELEASE 1 tablet by mouth four times daily DICLOFENAC SODIUM 50 MG ORAL TABLET DELAYED RELEASE 986042 DICLOFENAC SODIUM Inactive LISINOPRIL 20 MG ORAL TABLET Take 1 tablet by mouth daily LISINOPRIL 20 MG ORAL TABLET 010462 LISINOPRIL Inactive MOBIC 15 MG ORAL TABLET 1 tab daily MOBIC 15 MG ORAL TABLET 898767 MELOXICAM Inactive NEXIUM 40 MG ORAL CAPSULE DELAYED RELEASE 1 cap daily NEXIUM 40 MG ORAL CAPSULE DELAYED RELEASE 285854 ESOMEPRAZOLE MAGNESIUM Inactive CELEBREX 200 MG ORAL CAPSULE 1 tablet by mouth twice daily with meals 2012 CELEBREX 200 MG ORAL CAPSULE 139285 CELECOXIB Inactive FLEXERIL 10 MG TAB 1 [...] DAILY 05/08 FLONASE 50 MCG/ACT NASAL SUSPENSION 8048076 FLUTICASONE PROPIONATE Inactive CIALIS 10 MG ORAL [...] a day AMOXICILLIN 500 MG ORAL CAPSULE 640097 AMOXICILLIN Inactive ZIAC 2.5-6.25 MG ORAL TABLET 1 tablet every morning for high blood pressure ZIAC 2.5-6.25 MG ORAL TABLET 546618 BISOPROLOL-HCTZ Inactive ZIAC 2.5-6.25 MG ORAL TABLET 1 tablet daily for high blood pressure ZIAC 2.5-6.25 MG ORAL TABLET 385690 BISOPROLOL-HCTZ Inactive HYDROXYZINE HCL 25 MG ORAL TABLET Take one (1) tablet by mouth twice a day HYDROXYZINE HCL 25 MG ORAL TABLET 891010 HYDROXYZINE HCL Inactive ANUSOL-HC 25 MG RECTAL SUPPOSITORY 1 rectally every 12 hours for irritation ANUSOL-HC 25 MG RECTAL SUPPOSITORY 4586252 HYDROCORTISONE NAEL (RECTAL) Inactive HYDROXYZINE HCL 25 MG ORAL TABLET 1 two times a day as needed for anxiety HYDROXYZINE HCL 25 MG ORAL TABLET 982176 HYDROXYZINE HCL Inactive FLOMAX 0.4 MG ORAL CAPSULE 1 capsule in the evening for night time urination. FLOMAX 0.4 MG ORAL CAPSULE 454171 TAMSULOSIN HCL Inactive CLEMASTINE FUMARATE 1.34 MG ORAL TABLET 1 tab PO BID CLEMASTINE FUMARATE 1.34 MG ORAL TABLET 616072 CLEMASTINE FUMARATE Inactive POLY-IRON 150 150 MG ORAL CAPSULE 1 tab po bid POLY-IRON 150 150 MG ORAL CAPSULE 787290 POLYSACCHARIDE IRON COMPLEX Inactive NYSTATIN 868925 UNIT/GM EXTERNAL CREAM apply to rash TID PRN 2015 NYSTATIN 313970 UNIT/GM EXTERNAL CREAM 248421 NYSTATIN Inactive HFHVLIZ-WLYETNWPX-MSIX 167-83-8 MG ORAL TABLET 1 tab po daily [id number]-ZNIFCHZMB-PMDS 167-83-8 MG ORAL TABLET 01168870367 CALCIUM -MAGNESIUM-ZINC Inactive CHANTIX 1 MG ORAL TABLET 1 twice a day CHANTIX 1 MG ORAL TABLET VARENICLINE TARTRATE Inactive MS CONTIN 100 MG ORAL TABLET EXTENDED RELEASE 1 by mouth twice a day MS CONTIN 100 MG ORAL TABLET EXTENDED RELEASE MORPHINE SULFATE Inactive ENDOCET 10-325 MG ORAL TABLET 1 by mouth twice a day ENDOCET 10-325 MG ORAL TABLET 8573787 OXYCODONE-ACETAMINOPHEN Inactive HYDROXYZINE HCL 25 MG ORAL TABLET take 1 every 4-6 hours as needed HYDROXYZINE HCL 25 MG ORAL TABLET 647543 HYDROXYZINE HCL Inactive ALPRAZOLAM 2 MG ORAL TABLET 1 tablet by mouth three times daily as needed ALPRAZOLAM 2 MG ORAL TABLET 863145 ALPRAZOLAM Inactive NEXIUM 40 MG ORAL CAPSULE DELAYED RELEASE 1 cap by mouth daily NEXIUM 40 MG ORAL CAPSULE DELAYED RELEASE 141311 ESOMEPRAZOLE MAGNESIUM Inactive Advance Directives Directive Description [...] Measured Encounters Code Encounter Date Provider Facility CPT-16894 Level 4 Est. Patient 12:51:[address] [facility] CPT-81890 Level 4 Est. Patient 10:10:03 CDT Wily Gonzalez [facility] CPT-35586 Level 3 Est. Patient 14:25:[address] [facility] CPT-63682 Level 3 Est. Patient 09:51:37 JUDGE CLERK Wily Gonzalez [facility] CPT-36967 Level 3 Est. Patient 11:07:48 CDT Wily Gonzalez [facility] CPT-03924 Level 3 Est. Patient 11:24:[address] [facility] CPT-89320 Level 3 Est. Patient 15:19:54 JUDGE CLERK Wily Gonzalez [facility] CPT-20622 Level 3 Est. Patient 10:04:45 CDT Wily Gonzalez [facility] CPT-44422 Level 3 Est. Patient 13:04:06 CDT Wily Gonzalez [facility] CPT-05043 Level 3 Est. Patient 12:23:04 CDT Wily Gonzalez [facility] CPT-13713 Level 3 Est. Patient 15:43:10 JUDGE CLERK Wily Gonzalez [facility] CPT-67750 Level 3 Est. Patient 16:10:54 CDT Wily Gonzalez [facility] CPT-39275 Level 3 Est. Patient 19:50:51 CDT Wily Gonzalez [facility] CPT-10414 Level 3 Est. Patient 12:02:30 JUDGE CLERK Wily Gonzalez [facility] CPT-21781 Level 3 Est. Patient 12:03:11 JUDGE CLERK Wily Gonzalez [facility] CPT-51127 Level 3 Est. Patient 12:01:41 JUDGE CLERK Wily Gonzalez [facility] CPT-73928 Level 3 Est. Patient 11:51:24 JUDGE CLERK Wily Gonzalez [facility] CPT-74842 Level 3 Est. Patient 11:58:20 JUDGE CLERK Wily Gonzalez [facility] CPT-59163 Level 3 Est. Patient 08:31:36 JUDGE CLERK Wily Gonzalez [facility] CPT-09352 Level 3 Est. Patient 21:57:36 CDT Wily Vicente Gonzalez [facility] CPT-06564 Level 3 Est. Patient 10:49:58 CDT Esvin PAULA [facility] CPT-02709 Level 3 Est. Patient 11:22:52 CDT Esvin PAULA [facility] CPT-85761 Level 3 Est. Patient 13:49:41 CDT Esvin Hudson [facility] CPT-78879 Level 3 Est. Patient 11:54:53 CDT Esvin Hudson [facility] CPT-23441 Level 3 Est. Patient 09:07:11 CDT Esvin Hudson [facility] CPT-81145 Level 3 Est. Patient 13:52:47 CDT Esvin Hudson [facility] CPT-01984 Level 3 Est. Patient 11:26:46 CDT Esvin Tristan [facility] CPT-85333 Level 3 Est. Patient 10:25:00 JUDGE CLERK Esvin Hudson [facility] CPT-08646 Level 3 Est. Patient 11:39:11 JUDGE CLERK Esvin Hudson [facility] CPT-31451 Level 3 Est. Patient 13:24:24 JUDGE CLERK Esvin Hudson [facility] CPT-59022 Level 3 Est. Patient 10:26:13 JUDGE CLERK Esvin Hudson [facility] CPT-60174 Level 3 Est. Patient 10:21:21 CDT Esvin Hudson [facility] CPT-04490 Level 3 Est. Patient 10:26:30 CDT Esvin Hudson [facility] CPT-46761 Level 3 Est. Patient 09:16:37 CDT Esvin Hudson [facility]-45909 Level 3 Est. Patient 09:06:58 CDT Esvin Tristan [facility]-01306 Level 3 Est. Patient 10:05:29 CDT Esvin Tristan [facility] CPT-94443 Level 3 Est. Patient 10:38:45 CDT Esvin Hudson [facility] CPT-30435 Level 3 Est. Patient 10:09:45 CDT Evsin Hudson [facility] CPT-26124 Level 3 Est. Patient 09:26:37 CDT Esvin Hudson [facility] CPT-39983 Level 3 Est. Patient 10:34:42 JUDGE CLERK Esvin Hudson [facility] CPT-03667 Level 3 Est. Patient 10:45:47 JUDGE CLERK Esvin Winston [facility] CPT-79209 Level 3 Est. Patient 10:45:22 JUDGE CLERK Esvin Tristan [facility] CPT-01076 Level 3 Est. Patient 14:18:30 JUDGE CLERK Esvin [facility] CPT-58409 Level 3 Est. Patient 13:53:29 JUDGE CLERK Esvin Tristan [facility] CPT-51035 Level 3 Est. Patient 10:34:11 CDT Esvin [facility] Procedures Code Procedure Name Date Entry Date Standard Description CPT-70624 Smoking Cessation counseling 10:10:03 CDT CPT-04188 Smoking Cessation counseling 14:25:57 CDT CPT-85994 Bone Density - XRAY USE ONLY 11:29:32 CDT CPT-33793 LS spine AP and Lat - XRAY USE ONLY 10:07:43 JUDGE CLERK 10/26 CPT-53503 Venipuncture Draw Fee 09:51:16 JUDGE CLERK CPT-09754 Smoking Cessation counseling 09:39:47 JUDGE CLERK CPT-G0438 Initial Annual Wellness Exam 09:37:28 JUDGE CLERK CPT-66713 Venipuncture Draw Fee 09:26:55 CDT CPT-91699 Venipuncture Draw Fee 11:55:52 CDT CPT-89201 Spec Collection and Handling Fee 09:16:37 CDT CPT-17814 Venipuncture Draw Fee 09:16:37 CDT
--- OUTSIDE RECORDS SUMMARY | 2018-02-26 14:33 | XMS REPORT | Clinical Summary ---
Author Author Admin, E Organization [employer] [facility] Address Unknown Phone Unavailable Allergies, Adverse Reactions, [...] Gonzalez DO ANKLE PAIN ICD-719.47 Inactive Wily Goznalez DO 05/08 ANEMIA ICD-285.9 Inactive Wily Gonzalez DO Tinea corporis ICD-110.5 Inactive Wily Gonzalez DO Tinea corporis ICD-110.5 Inactive Wily Gonzalez DO Hemorrhoids ICD-455.6 Inactive Wily Gonzalez DO 05/08 Nocturia ICD-788.43 Inactive Wily Gonzalez DO U T I ICD-599.0 Inactive Wily Gonzalez DO U R I ICD-465.9 Inactive Wily Gonzalez DO FH DIABETES ICD-V18.0 Inactive Wily Gonzalez DO Medication List Medication Instructions Start Date Stop Date Generic Name NDC Status Provider Patient Instruction [id number] 167-83-8 MG TABS 1 tab po daily [id number] No Longer Active Wily Gonzalez DO Active NYSTATIN 642354 UNIT/GM CREA apply to rash TID PRN NYSTATIN 92830321528 No Longer Active Wily Gonzalez DO Active POLY-IRON 150 150 MG CAPS 1 tab po bid POLYSACCHARIDE IRON COMPLEX 20008868112 No Longer Active Wily Gonzalez DO Active FLONASE ALLERGY RELIEF 50 MCG/ACT NASAL SUSP 2 sprays each nostril every day FLUTICASONE PROPIONATE 26025422818 Active Wily Gonzalez DO Active CLEMASTINE FUMARATE 1.34 MG ORAL TABS 1 tab PO BID CLEMASTINE FUMARATE 72765940490 No Longer Active Wily Gonzalez DO Active FLOMAX 0.4 MG CAPS 1 capsule in the evening for night time urination. TAMSULOSIN HCL 76169492159 No Longer Active Wily Gonzalez DO Active PROTONIX 40 MG TBEC 1 po daily PANTOPRAZOLE SODIUM 66854433575 Active Wily Gonzalez DO Active HYDROXYZINE HCL 25 MG TAB 1 two times a day as needed for anxiety HYDROXYZINE HCL 77444925332 No Longer Active Wily Gonzalez DO Active ANUSOL-HC 25 MG SUPPOSITORY 1 rectally every 12 hours for irritation HYDROCORTISONE NAEL (RECTAL) 58398992434 No Longer Active Wily Gonzalez DO Active HYDROXYZINE HCL 25 MG TABS Take one (1) tablet by mouth twice a day HYDROXYZINE HCL 17907611179 No Longer Active Wily Gonzalez DO Active ZIAC 2.5-6.25 MG TAB 1 tablet daily for high blood pressure 10/27 BISOPROLOL-HCTZ 57495016916 No Longer Active Wily Gonzalez DO Active ZIAC 2.5-6.25 MG TAB 1 tablet every morning for high blood pressure BISOPROLOL-HCTZ 72169385891 No Longer Active Wily Gonzalez DO Active AMOXICILLIN 500 MG CAPS Take one (1) tablet by mouth three times a day 05/05 AMOXICILLIN 54638948792 No Longer Active Wily Gonzalez DO Active MORPHINE SULFATE ER 100 MG CR-TABS Take one (1) tablet by mouth twice a day MORPHINE SULFATE 04562188382 No Longer Active Wily Gonzalez DO Active MORPHINE SULFATE ER 100 MG [id number] 1 capsule twice daily for chronic pain MORPHINE SULFATE 95242428090 Active Wily Gonzalez DO Active CIALIS 10 MG TABS 1 every 72 hours as needed TADALAFIL 95539979355 No Longer Active Esvin PAULA Active FLONASE 50 MCG/ACT SUSP 2 SPRAY EACH NARE DAILY FLUTICASONE PROPIONATE 82911902951 No Longer Active Esvin PAULA Active CYCLOBENZAPRINE HCL 10 MG TABS Take one (1) tablet by mouth three times a day CYCLOBENZAPRINE HCL 18345921305 Active Wily Gonzalez DO Active OPANA ER (CRUSH RESISTANT) 40 MG [id number] Take one (1) tablet by mouth twice a day OXYMORPHONE HCL 24590332943 No Longer Active Esvin PAULA Active PROAIR HFA 108 (90 BASE) MCG/ACT AERS 2 puffs every four hours as needed ALBUTEROL SULFATE 69012513630 No Longer Active Esvin PAULA Active CLEARLAX POWD 17gm q day prn constipation POLYETHYLENE GLYCOL 3350 44788037894 Active Kaylen Leigh MA Active MORPHINE SULFATE ER 100 MG [id number] Take one (1) tablet by mouth twice a day MORPHINE SULFATE 27392365289 No Longer Active Esvin PAULA Active FLEXERIL 10 MG TAB 1 tablet by mouth 3 times daily as needed CYCLOBENZAPRINE HCL 31885028787 No Longer Active Esvin PAULA Active CELEBREX 200 MG CAPS 1 tablet by mouth twice daily with meals CELECOXIB 94005198551 No Longer Active Esvin PAULA Active NEXIUM 40 MG CPDR 1 cap daily ESOMEPRAZOLE MAGNESIUM 66634936276 No Longer Active Esvin PAULA Active MOBIC 15 MG TABS 1 tab daily MELOXICAM 68889484346 No Longer Active Esvin PAULA Active LISINOPRIL 20 MG TABS Take 1 tablet by mouth daily LISINOPRIL 58706673849 No Longer Active Esvin PAULA Active DICLOFENAC SODIUM 50 MG TBEC 1 tablet by mouth four times daily DICLOFENAC SODIUM 27281473069 No Longer Active Paula Cooney RN Active VERAMYST 27.5 MCG/SPRAY SUSP 2 spray each nare daily FLUTICASONE FUROATE 60280972995 No Longer Active Megan Alicia RN Active ENDOCET 10-325 MG TABS Take one (1) tablet by mouth three times a day OXYCODONE-ACETAMINOPHEN 05144548818 Active Wily Gonzalez DO Active ALPRAZOLAM 2 MG TABS Take one (1) tablet by mouth three times a day ALPRAZOLAM 30014924845 Active Kaylen Leigh MA Active NEXIUM 40 MG CPDR 1 cap by mouth daily ESOMEPRAZOLE MAGNESIUM 95075884725 No Longer Active Esvin PAULA Active ALPRAZOLAM 2 MG TABS 1 tablet by mouth three times daily as needed ALPRAZOLAM 98742731062 No Longer Active Esvin PAULA Active HYDROXYZINE HCL 25 MG TAB take 1 every 4-6 hours as needed 07/01 HYDROXYZINE HCL 38307887771 No Longer Active Esvin PAULA Active ENDOCET 10-325 MG TABS 1 by mouth twice a day OXYCODONE-ACETAMINOPHEN 66860584906 No Longer Active Esvin APULA Active MS CONTIN 100 MG [id number] 1 by mouth twice a day MORPHINE SULFATE 31784994307 No Longer Active Esvin PAULA Active SUDAFED 30 MG TAB 1-2 every 4-6 hours as needed PSEUDOEPHEDRINE HCL 42342111556 Active Marylou Melissa RPT,RMA Active VERAMYST 27.5 MCG/SPRAY SUSP 2 spray each nare daily VERAMYST 27.5 MCG/SPRAY SUSP FLUTICASONE FUROATE Inactive DICLOFENAC SODIUM 50 MG TBEC 1 tablet by mouth four times daily DICLOFENAC SODIUM 50 MG TBEC 672543 DICLOFENAC SODIUM Inactive LISINOPRIL 20 MG TABS Take 1 tablet by mouth daily LISINOPRIL 20 MG TABS 586353 LISINOPRIL Inactive MOBIC 15 MG TABS 1 tab daily MOBIC 15 MG TABS 660267 MELOXICAM Inactive NEXIUM 40 MG CPDR 1 cap daily NEXIUM 40 MG CPDR 945177 ESOMEPRAZOLE MAGNESIUM Inactive CELEBREX 200 MG CAPS 1 tablet by mouth twice daily with meals CELEBREX 200 MG CAPS 525790 CELECOXIB Inactive FLEXERIL 10 MG TAB 1 [...] a day 05/05 AMOXICILLIN 500 MG CAPS 557351 AMOXICILLIN Inactive ZIAC 2.5-6.25 MG TAB 1 tablet every morning for high blood pressure ZIAC 2.5-6.25 MG TAB 685121 BISOPROLOL-HCTZ Inactive ZIAC 2.5-6.25 MG TAB 1 tablet daily for high blood pressure 10/27 ZIAC 2.5-6.25 MG TAB 086492 BISOPROLOL-HCTZ Inactive HYDROXYZINE HCL 25 MG TABS Take one (1) tablet by mouth twice a day HYDROXYZINE HCL 25 MG TABS 647470 HYDROXYZINE HCL Inactive ANUSOL-HC 25 MG SUPPOSITORY 1 rectally every 12 hours for irritation ANUSOL-HC 25 MG SUPPOSITORY 4925802 HYDROCORTISONE NAEL (RECTAL ) Inactive HYDROXYZINE HCL 25 MG TAB 1 two times a day as needed for anxiety HYDROXYZINE HCL 25 MG TAB 738283 HYDROXYZINE HCL Inactive FLOMAX 0.4 MG CAPS 1 capsule in the evening for night time urination. FLOMAX 0.4 MG CAPS 040911 TAMSULOSIN HCL Inactive CLEMASTINE FUMARATE 1.34 MG ORAL TABS 1 tab PO BID CLEMASTINE FUMARATE 1.34 MG ORAL TABS 658263 CLEMASTINE FUMARATE Inactive POLY-IRON 150 150 MG CAPS 1 tab po bid POLY-IRON 150 150 MG CAPS POLYSACCHARIDE IRON COMPLEX Inactive NYSTATIN 454308 UNIT/GM CREA apply to rash TID PRN NYSTATIN 490513 UNIT/GM CREA 447726 NYSTATIN Inactive [id number]-GHOT 167-83-8 MG TABS 1 tab po daily [id number]-[id number] 167-83-8 MG TABS [id number] Inactive MS CONTIN 100 MG RR86K-ATZ 1 by mouth twice a day MS CONTIN 100 MG [id number] MORPHINE SULFATE Inactive ENDOCET 10-325 MG TABS 1 by mouth twice a day ENDOCET 10-325 MG TABS 4814376 OXYCODONE-ACETAMINOPHEN Inactive HYDROXYZINE HCL 25 MG TAB take 1 every 4-6 hours as needed 07/01 HYDROXYZINE HCL 25 MG TAB 334921 HYDROXYZINE HCL Inactive ALPRAZOLAM 2 MG TABS 1 tablet by mouth three times daily as needed ALPRAZOLAM 2 MG TABS 269111 ALPRAZOLAM Inactive NEXIUM 40 MG CPDR 1 cap by mouth daily NEXIUM 40 MG CPDR 479009 ESOMEPRAZOLE MAGNESIUM Inactive Advance Directives Directive Description [...] ... - Chemistry sodium, serum 140 mmol/L 805-144 0504/03/25 carbon dioxide, venous blood 31.3 mmol/L 21.0-32.0 potassium, serum 4.0 mmol/L 3.5-5.2 chloride, serum 101 mmol/L 98-107 blood glucose 96 mg/dL 65-110 urea nitrogen, blood 7 mg/dL 7-18 creatinine, serum 0.94 mg/dL 0.55-1.30 alanine aminotransferase (SGPT), serum 23 U/L 12-78 aspartate aminotransferase (SGOT), serum 21 U/L 15-37 calcium, serum 8.9 mg/dL 8.5-10.1 bilirubin, serum, total 0.30 mg/dL 0.00-1.00 cholesterol, serum 169 mg/dL 693-755 0690/03/25 triglyceride, serum, fasting 143 mg/dL 30-200 HDL [...] 5.0-8.5 Encounters Code Encounter Date Provider Facility CPT-02153 Level 3 Est. Patient 11:07:48 CDT Wily Gonzalez [facility] CPT-67957 Level 3 Est. Patient 11:24:24 CDT Wily Gonzalez [facility] CPT-39193 Level 3 Est. Patient 15:19:54 DELIVERY STOCK CLERK Wily Gonzalez [facility] CPT-35418 Level 3 Est. Patient 10:04:45 CDT Wily Gonzalez [facility] CPT-69218 Level 3 Est. Patient 13:04:06 CDT Wily Gonzalez [facility] CPT-13403 Level 3 Est. Patient 12:23:04 CDT Wily Gonzalez [facility] CPT-56474 Level 3 Est. Patient 15:43:10 DELIVERY STOCK CLERK Wily Gonzalez [facility] CPT-34204 Level 3 Est. Patient 16:10:54 CDT Wily Gonzalez [facility] CPT-62994 Level 3 Est. Patient 19:50:51 CDT Wily Gonzalez [facility] CPT-52452 Level 3 Est. Patient 12:02:30 DELIVERY STOCK CLERK Wily Gonzalez [facility] CPT-13499 Level 3 Est. Patient 12:03:11 DELIVERY STOCK CLERK Wily Gonzalez [facility] CPT-75419 Level 3 Est. Patient 12:01:41 DELIVERY STOCK CLERK Wily Gonzalez [facility] CPT-37578 Level 3 Est. Patient 11:51:24 DELIVERY STOCK CLERK Wily Gonzalez [facility] CPT-38432 Level 3 Est. Patient 11:58:20 DELIVERY STOCK CLERK Wily Zhang Carlos [facility] CPT-18241 Level 3 Est. Patient 08:31:36 DELIVERY STOCK CLERK Wily Vicente Carlos [facility] CPT-13264 Level 3 Est. Patient 21:57:36 CDT Wily Gonzalez DO [facility] CPT-12843 Level 3 Est. Patient 10:49:58 CDT Esvin Hudson [facility]-87269 Level 3 Est. Patient 11:22:[address] [facility] CPT-89426 Level 3 Est. Patient 13:49:[address] [facility] CPT-56873 Level 3 Est. Patient 11:54:53 CDT Esvin Tristan [facility] CPT-09847 Level 3 Est. Patient 09:07:11 CDT Esvin PAULA [facility] CPT-40038 Level 3 Est. Patient 13:52:47 CDT Esvin PAULA [facility] CPT-68651 Level 3 Est. Patient 11:26:[address] [facility] CPT-43340 Level 3 Est. Patient 10:25:00 DELIVERY STOCK CLERK Esvin Tristan PA [facility] CPT-36611 Level 3 Est. Patient 11:39:11 DELIVERY STOCK CLERK Esvin PAULA [facility] CPT-10479 Level 3 Est. Patient 13:24:24 DELIVERY STOCK CLERK Esvin PAULA [facility] CPT-56501 Level 3 Est. Patient 10:26:13 DELIVERY STOCK CLERK Esvin Hudson [facility] CPT-48290 Level 3 Est. Patient 10:21:21 CDT Esvin Hudson [facility] CPT-51598 Level 3 Est. Patient 10:26:30 CDT Esvin PAULA [facility] CPT-43845 Level 3 Est. Patient 09:16:37 CDT Esvin Hudson [facility]-64575 Level 3 Est. Patient 09:06:58 CDT Esvin Hudson CHAI [facility] CPT-76170 Level 3 Est. Patient 10:05:29 CDT Esvin Hudson CHAI [facility] CPT-46977 Level 3 Est. Patient 10:38:45 CDT Esvin Hudson [facility] CPT-30178 Level 3 Est. Patient 10:09:45 CDT Esvin PAULA [facility] CPT-90918 Level 3 Est. Patient 09:26:37 CDT Esvin Tristan [facility] CPT-14252 Level 3 Est. Patient 10:34:42 DELIVERY STOCK CLERK Esvin Tristan [facility] CPT-23242 Level 3 Est. Patient 10:45:47 DELIVERY STOCK CLERK Esvin Tristan [facility] CPT-22607 Level 3 Est. Patient 10:45:22 DELIVERY STOCK CLERK Esvin Hudson [facility] CPT-45449 Level 3 Est. Patient 14:18:30 DELIVERY STOCK CLERK Esvin Tristan [facility] CPT-21913 Level 3 Est. Patient 13:53:29 DELIVERY STOCK CLERK Esvin Hudson [facility] CPT-18375 Level 3 Est. Patient 10:34:11 CDT Esvin Tristan [facility] Procedures Code Procedure Name Date Entry Date Standard Description CPT-60449 Venipuncture Draw Fee 09:26:55 CDT CPT-23042 Venipuncture Draw Fee 11:55:52 CDT CPT-32664 Spec Collection and Handling Fee 09:16:37 CDT CPT-93604 Venipuncture Draw Fee 09:16:37 CDT
--- OUTSIDE RECORDS SUMMARY | 2018-02-26 14:34 | XMS REPORT | Clinical Summary ---
Author Author Admin, E Organization [facility] Address Unknown Phone Unavailable Allergies, Adverse Reactions, [...] Instructions Start Date Stop Date Generic Name [facility] Status Provider Patient Instruction CHANTIX 1 MG ORAL TABLET 1 twice a day VARENICLINE TARTRATE 41981120241 No Longer Active Wily Gonzalez DO Active RAUL-MAG 500-250 MG ORAL TABLET Take one by mouth daily CALCIUM -MAGNESIUM 49138272243 Active Wily Gonzalez DO Active FOSAMAX 70 MG ORAL TABLET 1 po qweek. Take 30min prior to first food/drink. Avoid lying down x 1 hour. ALENDRONATE SODIUM 53266086867 Active Rose Bang Active CALCIUM 600 MG ORAL TABLET 1 po q day CALCIUM 07321134551 Active Rose Bang Active TRIAMCINOLONE ACETONIDE 0.1 % EXTERNAL CREAM Apply to affected area 3 times daily for up to 2 weeks TRIAMCINOLONE ACETONIDE 35979274377 Active Wily Gonzalez DO Active KCRETIH-RUEZIHDQY-ZSOK 167-83-8 MG ORAL TABLET 1 tab po daily [id number] 19993617331 No Longer Active Wily Gonzalez DO Active NYSTATIN 017698 UNIT/GM EXTERNAL CREAM apply to rash TID PRN 2015 NYSTATIN 97936753639 No Longer Active Wily Gonzalez DO Active POLY-IRON 150 150 MG ORAL CAPSULE 1 tab po bid POLYSACCHARIDE IRON COMPLEX 15375406178 No Longer Active Wily Gonzalez DO Active FLONASE ALLERGY RELIEF 50 MCG/ACT NASAL SUSPENSION 2 sprays each nostril every day FLUTICASONE PROPIONATE 28813198579 Active Wily Gonzalez DO Active CLEMASTINE FUMARATE 1.34 MG ORAL TABLET 1 tab PO BID CLEMASTINE FUMARATE 52122509480 No Longer Active Wily Gonzalez DO Active FLOMAX 0.4 MG ORAL CAPSULE 1 capsule in the evening for night time urination. TAMSULOSIN HCL 04571354578 No Longer Active Wily Gonzalez DO Active PROTONIX 40 MG ORAL TABLET DELAYED RELEASE 1 po daily PANTOPRAZOLE SODIUM 34571795764 Active Lisa Berkowitz Active HYDROXYZINE HCL 25 MG ORAL TABLET 1 two times a day as needed for anxiety HYDROXYZINE HCL 01947483139 No Longer Active Wily Gonzalez DO Active ANUSOL-HC 25 MG RECTAL SUPPOSITORY 1 rectally every 12 hours for irritation HYDROCORTISONE NAEL (RECTAL) 11319935444 No Longer Active Wily Gonzalez DO Active HYDROXYZINE HCL 25 MG ORAL TABLET Take one (1) tablet by mouth twice a day HYDROXYZINE HCL 17465106012 No Longer Active Wily Gonzalez DO Active ZIAC 2.5-6.25 MG ORAL TABLET 1 tablet daily for high blood pressure BISOPROLOL-HCTZ 88741650890 No Longer Active Wily Gonzalez DO Active ZIAC 2.5-6.25 MG ORAL TABLET 1 tablet every morning for high blood pressure BISOPROLOL-HCTZ 78434876366 No Longer Active Wily Gonzalez DO Active AMOXICILLIN 500 MG ORAL CAPSULE Take one (1) tablet by mouth three times a day AMOXICILLIN 12971958595 No Longer Active Wily Gonzalez DO Active MORPHINE SULFATE ER 100 MG ORAL TABLET EXTENDED RELEASE Take one (1) tablet by mouth twice a day MORPHINE SULFATE 29276418844 No Longer Active Wily Gonzalez DO Active MORPHINE SULFATE ER 100 MG ORAL CAPSULE EXTENDED RELEASE 24 HOUR 1 capsule twice daily for chronic pain MORPHINE SULFATE 09224476090 Active Laurie Latham LPN Active CIALIS 10 MG ORAL TABLET 1 every 72 hours as needed TADALAFIL 33631455226 No Longer Active Esvin PAULA Active FLONASE 50 MCG/ACT NASAL SUSPENSION 2 SPRAY EACH NARE DAILY 05/08 FLUTICASONE PROPIONATE 29014880120 No Longer Active Esvin PAULA Active CYCLOBENZAPRINE HCL 10 MG ORAL TABLET Take one (1) tablet by mouth three times a day CYCLOBENZAPRINE HCL 63021976228 Active Lisa Berkowitz Active OPANA ER 40 MG ORAL TABLET ER 12 HOUR ABUSE-DETERRENT Take one (1) tablet by mouth twice a day OXYMORPHONE HCL 81087749806 No Longer Active Esvin PAULA Active PROAIR HFA 108 (90 Base) MCG/ACT INHALATION AEROSOL SOLUTION 2 puffs every four hours as needed ALBUTEROL SULFATE 87118788452 No Longer Active Esvin PAULA Active CLEARLAX ORAL POWDER 17gm q day prn constipation POLYETHYLENE GLYCOL 3350 72441645678 Active Wily Gonzalez DO Active MORPHINE SULFATE ER 100 MG ORAL CAPSULE EXTENDED RELEASE 24 HOUR Take one (1) tablet by mouth twice a day MORPHINE SULFATE 79494789276 No Longer Active Esvin PAULA Active FLEXERIL 10 MG TAB 1 tablet by mouth 3 times daily as needed CYCLOBENZAPRINE HCL 55099719711 No Longer Active Esvin PAULA Active CELEBREX 200 MG ORAL CAPSULE 1 tablet by mouth twice daily with meals 2012 CELECOXIB 70943260288 No Longer Active Esvin PAULA Active NEXIUM 40 MG ORAL CAPSULE DELAYED RELEASE 1 cap daily ESOMEPRAZOLE MAGNESIUM 51635249292 No Longer Active Esvin PAULA Active MOBIC 15 MG ORAL TABLET 1 tab daily MELOXICAM 62716914417 No Longer Active Esvin PAULA Active LISINOPRIL 20 MG ORAL TABLET Take 1 tablet by mouth daily LISINOPRIL 34463377661 No Longer Active Esvin PAULA Active DICLOFENAC SODIUM 50 MG ORAL TABLET DELAYED RELEASE 1 tablet by mouth four times daily DICLOFENAC SODIUM 21784400154 No Longer Active Paula Cooney RN Active VERAMYST 27.5 MCG/SPRAY NASAL SUSPENSION 2 spray each nare daily FLUTICASONE FUROATE 55522722704 No Longer Active Megan Vargas RN Active ENDOCET 10-325 MG ORAL TABLET Take one (1) tablet by mouth three times a day OXYCODONE-ACETAMINOPHEN 37680499179 Active Laurie Latham LPN Active ALPRAZOLAM 2 MG ORAL TABLET Take one (1) tablet by mouth three times a day ALPRAZOLAM 75592086621 Active Rose Bang Active NEXIUM 40 MG ORAL CAPSULE DELAYED RELEASE 1 cap by mouth daily ESOMEPRAZOLE MAGNESIUM 35103225804 No Longer Active Esvin PAULA Active ALPRAZOLAM 2 MG ORAL TABLET 1 tablet by mouth three times daily as needed ALPRAZOLAM 99870670522 No Longer Active Esvin PAULA Active HYDROXYZINE HCL 25 MG ORAL TABLET take 1 every 4-6 hours as needed HYDROXYZINE HCL 09894121894 No Longer Active Esvin PAULA Active ENDOCET 10-325 MG ORAL TABLET 1 by mouth twice a day OXYCODONE-ACETAMINOPHEN 82172011927 No Longer Active Esvin PAULA Active MS CONTIN 100 MG ORAL TABLET EXTENDED RELEASE 1 by mouth twice a day MORPHINE SULFATE 03458832933 No Longer Active Esvin PAULA Active SUDAFED 30 MG ORAL TABLET 1-2 every 4-6 hours as needed PSEUDOEPHEDRINE HCL 94438015224 Active Lisa Berkowitz Active VERAMYST 27.5 MCG/SPRAY NASAL SUSPENSION 2 spray each nare daily VERAMYST 27.5 MCG/SPRAY NASAL SUSPENSION FLUTICASONE FUROATE Inactive DICLOFENAC SODIUM 50 MG ORAL TABLET DELAYED RELEASE 1 tablet by mouth four times daily DICLOFENAC SODIUM 50 MG ORAL TABLET DELAYED RELEASE 343848 DICLOFENAC SODIUM Inactive LISINOPRIL 20 MG ORAL TABLET Take 1 tablet by mouth daily LISINOPRIL 20 MG ORAL TABLET 244947 LISINOPRIL Inactive MOBIC 15 MG ORAL TABLET 1 tab daily MOBIC 15 MG ORAL TABLET 936696 MELOXICAM Inactive NEXIUM 40 MG ORAL CAPSULE DELAYED RELEASE 1 cap daily NEXIUM 40 MG ORAL CAPSULE DELAYED RELEASE 380629 ESOMEPRAZOLE MAGNESIUM Inactive CELEBREX 200 MG ORAL CAPSULE 1 tablet by mouth twice daily with meals 2012 CELEBREX 200 MG ORAL CAPSULE 710582 CELECOXIB Inactive FLEXERIL 10 MG TAB 1 [...] DAILY 05/08 FLONASE 50 MCG/ACT NASAL SUSPENSION 1324890 FLUTICASONE PROPIONATE Inactive CIALIS 10 MG ORAL [...] a day AMOXICILLIN 500 MG ORAL CAPSULE 708506 AMOXICILLIN Inactive ZIAC 2.5-6.25 MG ORAL TABLET 1 tablet every morning for high blood pressure ZIAC 2.5-6.25 MG ORAL TABLET 871228 BISOPROLOL-HCTZ Inactive ZIAC 2.5-6.25 MG ORAL TABLET 1 tablet daily for high blood pressure ZIAC 2.5-6.25 MG ORAL TABLET 137323 BISOPROLOL-HCTZ Inactive HYDROXYZINE HCL 25 MG ORAL TABLET Take one (1) tablet by mouth twice a day HYDROXYZINE HCL 25 MG ORAL TABLET 905904 HYDROXYZINE HCL Inactive ANUSOL-HC 25 MG RECTAL SUPPOSITORY 1 rectally every 12 hours for irritation ANUSOL-HC 25 MG RECTAL SUPPOSITORY 5543642 HYDROCORTISONE NAEL (RECTAL) Inactive HYDROXYZINE HCL 25 MG ORAL TABLET 1 two times a day as needed for anxiety HYDROXYZINE HCL 25 MG ORAL TABLET 819145 HYDROXYZINE HCL Inactive FLOMAX 0.4 MG ORAL CAPSULE 1 capsule in the evening for night time urination. FLOMAX 0.4 MG ORAL CAPSULE 895145 TAMSULOSIN HCL Inactive CLEMASTINE FUMARATE 1.34 MG ORAL TABLET 1 tab PO BID CLEMASTINE FUMARATE 1.34 MG ORAL TABLET 444291 CLEMASTINE FUMARATE Inactive POLY-IRON 150 150 MG ORAL CAPSULE 1 tab po bid POLY-IRON 150 150 MG ORAL CAPSULE 933582 POLYSACCHARIDE IRON COMPLEX Inactive NYSTATIN 913542 UNIT/GM EXTERNAL CREAM apply to rash TID PRN 2015 NYSTATIN 909987 UNIT/GM EXTERNAL CREAM 741907 NYSTATIN Inactive QAALBHR-XOWSIWFTH-KXDZ 167-83-8 MG ORAL TABLET 1 tab po daily QPCYSEJ-OWZLRXDST-CFZJ 167-83-8 MG ORAL TABLET 08220770029 CALCIUM -MAGNESIUM-ZINC Inactive CHANTIX 1 MG ORAL TABLET 1 twice a day CHANTIX 1 MG ORAL TABLET VARENICLINE TARTRATE Inactive MS CONTIN 100 MG ORAL TABLET EXTENDED RELEASE 1 by mouth twice a day MS CONTIN 100 MG ORAL TABLET EXTENDED RELEASE MORPHINE SULFATE Inactive ENDOCET 10-325 MG ORAL TABLET 1 by mouth twice a day ENDOCET 10-325 MG ORAL TABLET 3978673 OXYCODONE-ACETAMINOPHEN Inactive HYDROXYZINE HCL 25 MG ORAL TABLET take 1 every 4-6 hours as needed HYDROXYZINE HCL 25 MG ORAL TABLET 069661 HYDROXYZINE HCL Inactive ALPRAZOLAM 2 MG ORAL TABLET 1 tablet by mouth three times daily as needed ALPRAZOLAM 2 MG ORAL TABLET 522297 ALPRAZOLAM Inactive NEXIUM 40 MG ORAL CAPSULE DELAYED RELEASE 1 cap by mouth daily NEXIUM 40 MG ORAL CAPSULE DELAYED RELEASE 451742 ESOMEPRAZOLE MAGNESIUM Inactive Advance Directives Directive Description [...] Measured Encounters Code Encounter Date Provider Facility CPT-98261 Level 4 Est. Patient 12:51:46 CDT Wily Gonzalez [facility] CPT-79897 Level 4 Est. Patient 10:10:03 CDT Wily Gonzalez [facility] CPT-87305 Level 3 Est. Patient 14:25:57 CDT Wily Gonzalez [facility] CPT-99429 Level 3 Est. Patient 09:51:37 MEDICAL RECORDS TECH Wily Gonzalez [facility] CPT-35833 Level 3 Est. Patient 11:07:48 CDT Wily Gonzalez [facility] CPT-56927 Level 3 Est. Patient 11:24:24 CDT Wily Gonzalez [facility] CPT-46342 Level 3 Est. Patient 15:19:54 MEDICAL RECORDS TECH Wily Gonzalez [facility] CPT-08484 Level 3 Est. Patient 10:04:45 CDT Wily Gonzalez [facility] CPT-39680 Level 3 Est. Patient 13:04:06 CDT Wily Gonzalez [facility] CPT-96510 Level 3 Est. Patient 12:23:04 CDT Wily Gonzalez [facility] CPT-75800 Level 3 Est. Patient 15:43:10 MEDICAL RECORDS TECH Wily Gonzalez [facility] CPT-11544 Level 3 Est. Patient 16:10:54 CDT Wily Gonzalez [facility] CPT-40019 Level 3 Est. Patient 19:50:51 CDT Wily Gonzalez [facility] CPT-75431 Level 3 Est. Patient 12:02:30 MEDICAL RECORDS TECH Wily Gonzalez [facility] CPT-17636 Level 3 Est. Patient 12:03:11 MEDICAL RECORDS TECH Wily Gonzalez [facility] CPT-88008 Level 3 Est. Patient 12:01:41 MEDICAL RECORDS TECH Wily Gonzalez [facility] CPT-05632 Level 3 Est. Patient 11:51:24 MEDICAL RECORDS TECH Wily Gonzalez [facility] CPT-46382 Level 3 Est. Patient 11:58:20 MEDICAL RECORDS TECH Wily Gonzalez [facility] CPT-04613 Level 3 Est. Patient 08:31:36 MEDICAL RECORDS TECH Wily Gonzalez [facility] CPT-55042 Level 3 Est. Patient 21:57:36 CDT Wily Gonzalez [facility] CPT-63744 Level 3 Est. Patient 10:49:58 CDT Esvin Hudson [facility] CPT-70985 Level 3 Est. Patient 11:22:[address] [facility] CPT-01358 Level 3 Est. Patient 13:49:41 CDT Esvin Hudson [facility] CPT-34464 Level 3 Est. Patient 11:54:53 CDT Esvin Hudson [facility] CPT-78240 Level 3 Est. Patient 09:07:11 CDT Esvin Hudson [facility] CPT-00783 Level 3 Est. Patient 13:52:47 CDT Esvin Hudson [facility] CPT-72796 Level 3 Est. Patient 11:26:46 CDT Esvin Tristan PA [facility] CPT-36168 Level 3 Est. Patient 10:25:00 MEDICAL RECORDS TECH Esvin Tristan PA [facility] CPT-65061 Level 3 Est. Patient 11:39:11 MEDICAL RECORDS TECH Esvin Hudson [facility] CPT-19518 Level 3 Est. Patient 13:24:24 MEDICAL RECORDS TECH Esvin Hudson [facility] CPT-67815 Level 3 Est. Patient 10:26:13 MEDICAL RECORDS TECH Esvin Tristan [facility] CPT-84371 Level 3 Est. Patient 10:21:21 CDT Esvin Yantic PA [facility] CPT-47415 Level 3 Est. Patient 10:26:30 CDT Esvin Hudson [facility] CPT-47541 Level 3 Est. Patient 09:16:37 CDT Esvin Hudson [facility] CPT-65210 Level 3 Est. Patient 09:06:58 CDT Esvin Tristan PA [facility] CPT-44715 Level 3 Est. Patient 10:05:29 CDT Esvin Yantic PA [facility] CPT-92394 Level 3 Est. Patient 10:38:45 CDT Esvin Tristan [facility] CPT-25043 Level 3 Est. Patient 10:09:45 CDT Esvin Hudson [facility] CPT-81989 Level 3 Est. Patient 09:26:37 CDT Esvin Hudson [facility] CPT-01154 Level 3 Est. Patient 10:34:42 MEDICAL RECORDS TECH Esvin Tristan [facility] CPT-20603 Level 3 Est. Patient 10:45:47 MEDICAL RECORDS TECH Esvin [facility] CPT-23220 Level 3 Est. Patient 10:45:22 MEDICAL RECORDS TECH Esvin Tristan [facility] CPT-26913 Level 3 Est. Patient 14:18:30 MEDICAL RECORDS TECH Esvin [facility] CPT-30985 Level 3 Est. Patient 13:53:29 MEDICAL RECORDS TECH Esvin Hudson [facility] CPT-69985 Level 3 Est. Patient 10:34:11 CDT Esvin [facility] Procedures Code Procedure Name Date Entry Date Standard Description CPT-46809 Smoking Cessation counseling 10:10:03 CDT CPT-49935 Smoking Cessation counseling 14:25:57 CDT CPT-08933 Bone Density - XRAY USE ONLY 11:29:32 CDT CPT-98771 LS spine AP and Lat - XRAY USE ONLY 10:07:43 MEDICAL RECORDS TECH 10/26 CPT-54189 Venipuncture Draw Fee 09:51:16 MEDICAL RECORDS TECH CPT-76165 Smoking Cessation counseling 09:39:47 MEDICAL RECORDS TECH CPT-G0438 Initial Annual Wellness Exam 09:37:28 MEDICAL RECORDS TECH CPT-23169 Venipuncture Draw Fee 09:26:55 CDT CPT-44806 Venipuncture Draw Fee 11:55:52 CDT CPT-97931 Spec Collection and Handling Fee 09:16:37 CDT CPT-58379 Venipuncture Draw Fee 09:16:37 CDT
--- OUTSIDE RECORDS SUMMARY | 2018-02-26 14:34 | XMS REPORT | Clinical Summary ---
Author Author Admin, E Organization [facility] Address Unknown Phone Unavailable Allergies, Adverse [...] Generic Name NDC Status Provider Patient Instruction FOSAMAX 70 MG TABS 1 po qweek. Take 30min prior to first food/drink. Avoid lying down x 1 hour. ALENDRONATE SODIUM [id number] Active Rose Bang Active CALCIUM 600 MG ORAL TABS 1 po q day CALCIUM 60051354728 Active Rose Bang Active CHANTIX 1 MG TABS 1 twice a day VARENICLINE TARTRATE 61435952474 Active Wily Gonzalez DO Active TRIAMCINOLONE ACETONIDE 0.1 % CREA Apply to affected area 3 times daily for up to 2 weeks TRIAMCINOLONE ACETONIDE 78966904815 Active Wily Gonzalez DO Active [id number] 167-83-8 MG TABS 1 tab po daily [id number] 84343277221 No Longer Active Wily Gonzalez DO Active NYSTATIN 952287 UNIT/GM CREA apply to rash TID PRN NYSTATIN 04520478757 No Longer Active Wily Gonzalez DO Active POLY-IRON 150 150 MG CAPS 1 tab po bid POLYSACCHARIDE IRON COMPLEX 72520435294 No Longer Active Wily Gonzalez DO Active FLONASE ALLERGY RELIEF 50 MCG/ACT NASAL SUSP 2 sprays each nostril every day FLUTICASONE PROPIONATE 85552838918 Active Jodi Lucas APRN Active CLEMASTINE FUMARATE 1.34 MG ORAL TABS 1 tab PO BID CLEMASTINE FUMARATE 06878819516 No Longer Active Wily Gonzalez DO Active FLOMAX 0.4 MG CAPS 1 capsule in the evening for night time urination. TAMSULOSIN HCL 43088950803 No Longer Active Wily Gonzalez DO Active PROTONIX 40 MG TBEC 1 po daily PANTOPRAZOLE SODIUM 88021012774 Active Agnieszka Yeung Active HYDROXYZINE HCL 25 MG TAB 1 two times a day as needed for anxiety HYDROXYZINE HCL 58832214349 No Longer Active Wily Gonzalez DO Active ANUSOL-HC 25 MG SUPPOSITORY 1 rectally every 12 hours for irritation HYDROCORTISONE NAEL (RECTAL) 56532070773 No Longer Active Wily Gonzalez DO Active HYDROXYZINE HCL 25 MG TABS Take one (1) tablet by mouth twice a day HYDROXYZINE HCL 23642654163 No Longer Active Wily Gonzalez DO Active ZIAC 2.5-6.25 MG TAB 1 tablet daily for high blood pressure 10/27 BISOPROLOL-HCTZ 44245950197 No Longer Active Wily Gonzalez DO Active ZIAC 2.5-6.25 MG TAB 1 tablet every morning for high blood pressure BISOPROLOL-HCTZ 41884180177 No Longer Active Wily Gonzalez DO Active AMOXICILLIN 500 MG CAPS Take one (1) tablet by mouth three times a day 05/05 AMOXICILLIN 66189292664 No Longer Active Wily Gonzalez DO Active MORPHINE SULFATE ER 100 MG CR-TABS Take one (1) tablet by mouth twice a day MORPHINE SULFATE 93799652078 No Longer Active Wily Gonzalez DO Active MORPHINE SULFATE ER 100 MG [id number] 1 capsule twice daily for chronic pain MORPHINE SULFATE 77320877159 Active Wily Gonzalez DO Active CIALIS 10 MG TABS 1 every 72 hours as needed TADALAFIL 39426232078 No Longer Active Esvin PAULA Active FLONASE 50 MCG/ACT SUSP 2 SPRAY EACH NARE DAILY FLUTICASONE PROPIONATE 77566971346 No Longer Active Esvin PAULA Active CYCLOBENZAPRINE HCL 10 MG TABS Take one (1) tablet by mouth three times a day CYCLOBENZAPRINE HCL 75805416779 Active Lisa Berkowitz Active OPANA ER (CRUSH RESISTANT) 40 MG [id number]-[id number] Take one (1) tablet by mouth twice a day OXYMORPHONE HCL 22166218856 No Longer Active Esvin PAULA Active PROAIR HFA 108 (90 BASE) MCG/ACT AERS 2 puffs every four hours as needed ALBUTEROL SULFATE 07208834063 No Longer Active Esvin PAULA Active CLEARLAX POWD 17gm q day prn constipation POLYETHYLENE GLYCOL 3350 66201184840 Active Wily Gonzalez DO Active MORPHINE SULFATE ER 100 MG [id number] Take one (1) tablet by mouth twice a day MORPHINE SULFATE 48168401715 No Longer Active Esvin PAULA Active FLEXERIL 10 MG TAB 1 tablet by mouth 3 times daily as needed CYCLOBENZAPRINE HCL 39083261849 No Longer Active Esvin PAULA Active CELEBREX 200 MG CAPS 1 tablet by mouth twice daily with meals CELECOXIB 64008616658 No Longer Active Esvin PAULA Active NEXIUM 40 MG CPDR 1 cap daily ESOMEPRAZOLE MAGNESIUM 22449339432 No Longer Active Esvin PAULA Active MOBIC 15 MG TABS 1 tab daily MELOXICAM 89208030469 No Longer Active Esvin PAULA Active LISINOPRIL 20 MG TABS Take 1 tablet by mouth daily LISINOPRIL 53064444657 No Longer Active Esvin PAULA Active DICLOFENAC SODIUM 50 MG TBEC 1 tablet by mouth four times daily DICLOFENAC SODIUM 49371871168 No Longer Active Paula Cooney RN Active VERAMYST 27.5 MCG/SPRAY SUSP 2 spray each nare daily FLUTICASONE FUROATE 02801143609 No Longer Active Megan Vargas RN Active ENDOCET 10-325 MG TABS Take one (1) tablet by mouth three times a day OXYCODONE-ACETAMINOPHEN 87876764041 Active Wily Gonzalez DO Active ALPRAZOLAM 2 MG TABS Take one (1) tablet by mouth three times a day ALPRAZOLAM 92337279134 Active Wily Gonzalez DO Active NEXIUM 40 MG CPDR 1 cap by mouth daily ESOMEPRAZOLE MAGNESIUM 11950468277 No Longer Active Esvin PAULA Active ALPRAZOLAM 2 MG TABS 1 tablet by mouth three times daily as needed ALPRAZOLAM 29253900552 No Longer Active Esvin PAULA Active HYDROXYZINE HCL 25 MG TAB take 1 every 4-6 hours as needed 07/01 HYDROXYZINE HCL 28689648037 No Longer Active Esvin PAULA Active ENDOCET 10-325 MG TABS 1 by mouth twice a day OXYCODONE-ACETAMINOPHEN 64362780965 No Longer Active Esvin PAULA Active MS CONTIN 100 MG [id number] 1 by mouth twice a day MORPHINE SULFATE 55577290146 No Longer Active Esvni PAULA Active SUDAFED 30 MG TAB 1-2 every 4-6 hours as needed PSEUDOEPHEDRINE HCL 81036686905 Active Marylou Melissa RPT,RMA Active VERAMYST 27.5 MCG/SPRAY SUSP 2 spray each nare daily VERAMYST 27.5 MCG/SPRAY SUSP FLUTICASONE FUROATE Inactive DICLOFENAC SODIUM 50 MG TBEC 1 tablet by mouth four times daily DICLOFENAC SODIUM 50 MG TBEC 787487 DICLOFENAC SODIUM Inactive LISINOPRIL 20 MG TABS Take 1 tablet by mouth daily LISINOPRIL 20 MG TABS 072693 LISINOPRIL Inactive MOBIC 15 MG TABS 1 tab daily MOBIC 15 MG TABS 758809 MELOXICAM Inactive NEXIUM 40 MG CPDR 1 cap daily NEXIUM 40 MG CPDR 160405 ESOMEPRAZOLE MAGNESIUM Inactive CELEBREX 200 MG CAPS 1 tablet by mouth twice daily with meals CELEBREX 200 MG CAPS 062303 CELECOXIB Inactive FLEXERIL 10 MG TAB 1 [...] a day 05/05 AMOXICILLIN 500 MG CAPS 761110 AMOXICILLIN Inactive ZIAC 2.5-6.25 MG TAB 1 tablet every morning for high blood pressure ZIAC 2.5-6.25 MG TAB 862466 BISOPROLOL-HCTZ Inactive ZIAC 2.5-6.25 MG TAB 1 tablet daily for high blood pressure 10/27 ZIAC 2.5-6.25 MG TAB 636436 BISOPROLOL-HCTZ Inactive HYDROXYZINE HCL 25 MG TABS Take one (1) tablet by mouth twice a day HYDROXYZINE HCL 25 MG TABS 835707 HYDROXYZINE HCL Inactive ANUSOL-HC 25 MG SUPPOSITORY 1 rectally every 12 hours for irritation ANUSOL-HC 25 MG SUPPOSITORY 2012265 HYDROCORTISONE NAEL (RECTAL ) Inactive HYDROXYZINE HCL 25 MG TAB 1 two times a day as needed for anxiety HYDROXYZINE HCL 25 MG TAB 927202 HYDROXYZINE HCL Inactive FLOMAX 0.4 MG CAPS 1 capsule in the evening for night time urination. FLOMAX 0.4 MG CAPS 323987 TAMSULOSIN HCL Inactive CLEMASTINE FUMARATE 1.34 MG ORAL TABS 1 tab PO BID CLEMASTINE FUMARATE 1.34 MG ORAL TABS 515558 CLEMASTINE FUMARATE Inactive POLY-IRON 150 150 MG CAPS 1 tab po bid POLY-IRON 150 150 MG CAPS POLYSACCHARIDE IRON COMPLEX Inactive NYSTATIN 667939 UNIT/GM CREA apply to rash TID PRN NYSTATIN 741526 UNIT/GM CREA 575012 NYSTATIN Inactive QAYFCHX-[id number]-XHFE 167-83-8 MG TABS 1 tab po daily [id number]-TWTVGZMXN-XWXA 167-83-8 MG TABS TNVGXOO-WOZLCJRXS-IOIE Inactive MS CONTIN 100 MG RH03I-JLO 1 by mouth twice a day MS CONTIN 100 MG UE25O-QLZ MORPHINE SULFATE Inactive ENDOCET 10-325 MG TABS 1 by mouth twice a day ENDOCET 10-325 MG TABS 3277207 OXYCODONE-ACETAMINOPHEN Inactive HYDROXYZINE HCL 25 MG TAB take 1 every 4-6 hours as needed 07/01 HYDROXYZINE HCL 25 MG TAB 392064 HYDROXYZINE HCL Inactive ALPRAZOLAM 2 MG TABS 1 tablet by mouth three times daily as needed ALPRAZOLAM 2 MG TABS 745434 ALPRAZOLAM Inactive NEXIUM 40 MG CPDR 1 cap by mouth daily NEXIUM 40 MG CPDR 286679 ESOMEPRAZOLE MAGNESIUM Inactive Advance Directives Directive Description [...] Measured Encounters Code Encounter Date Provider Facility CPT-63212 Level 3 Est. Patient 09:51:37 FRENCH TRANSLATOR Wily W Carlos [facility] CPT-85893 Level 3 Est. Patient 11:07:48 CDT Wily Gonzalez [facility] CPT-90450 Level 3 Est. Patient 11:24:24 CDT Wily Gonzalez [facility] CPT-05695 Level 3 Est. Patient 15:19:54 FRENCH TRANSLATOR Wily Gonzalez [facility] CPT-14128 Level 3 Est. Patient 10:04:45 CDT Wily Gonzalez [facility] CPT-61152 Level 3 Est. Patient 13:04:06 CDT Wily Gonzalez [facility] CPT-24802 Level 3 Est. Patient 12:23:04 CDT Wily Gonzalez [facility] CPT-21759 Level 3 Est. Patient 15:43:10 FRENCH TRANSLATOR Wily Gonzalez [facility] CPT-55535 Level 3 Est. Patient 16:10:54 CDT Wily Gonzalez [facility] CPT-72535 Level 3 Est. Patient 19:50:51 CDT Wily Gonzalez [facility] CPT-50036 Level 3 Est. Patient 12:02:30 FRENCH TRANSLATOR Wily Gonzalez [facility] CPT-48923 Level 3 Est. Patient 12:03:11 FRENCH TRANSLATOR Wily Gonzalez [facility] CPT-66181 Level 3 Est. Patient 12:01:41 FRENCH TRANSLATOR Wily Gonzalez [facility] CPT-03022 Level 3 Est. Patient 11:51:24 FRENCH TRANSLATOR Wily Gonzalez [facility] CPT-46205 Level 3 Est. Patient 11:58:20 FRENCH TRANSLATOR Wily Zhang Carlos [facility] CPT-37287 Level 3 Est. Patient 08:31:36 FRENCH TRANSLATOR Wily Zhang Carlos [facility] CPT-20773 Level 3 Est. Patient 21:57:36 CDT Wily Vicente Carlos [facility]ENDARIZ [facility] CPT-61443 Level 3 Est. Patient 10:49:58 CDT Esvin PAULA [facility]-90937 Level 3 Est. Patient 11:22:52 CDT Esvin PAULA [facility] CPT-93850 Level 3 Est. Patient 13:49:41 CDT Esvin PAULA [facility] CPT-63463 Level 3 Est. Patient 11:54:53 CDT Esvin Tracy PA [facility] CPT-50107 Level 3 Est. Patient 09:07:11 CDT Esvin PAULA [facility] CPT-05804 Level 3 Est. Patient 13:52:47 CDT Esvin PAULA [facility] CPT-64712 Level 3 Est. Patient 11:26:46 CDT Esvin PAULA [facility] CPT-43788 Level 3 Est. Patient 10:25:00 FRENCH TRANSLATOR Esvin Tristan PA [facility] CPT-36667 Level 3 Est. Patient 11:39:11 FRENCH TRANSLATOR Esvin PAULA [facility] CPT-64434 Level 3 Est. Patient 13:24:24 FRENCH TRANSLATOR Esvin PAULA [facility] CPT-07756 Level 3 Est. Patient 10:26:13 FRENCH TRANSLATOR Esvin PAULA [facility]-82576 Level 3 Est. Patient 10:21:21 CDT Esvin PAULA [facility] CPT-99377 Level 3 Est. Patient 10:26:30 CDT Esvin PAULA [facility] CPT-88913 Level 3 Est. Patient 09:16:37 CDT Esvin PAULA [facility]-42094 Level 3 Est. Patient 09:06:58 CDT Esvin Tristan [facility] CPT-36301 Level 3 Est. Patient 10:05:29 CDT Esvin Hudson [facility] CPT-91745 Level 3 Est. Patient 10:38:45 CDT Esvin Hudson [facility] CPT-40072 Level 3 Est. Patient 10:09:45 CDT Esvin Hudson [facility] CPT-12527 Level 3 Est. Patient 09:26:37 CDT Esvin [facility] CPT-29285 Level 3 Est. Patient 10:34:42 FRENCH TRANSLATOR Esvin Tristan [facility] CPT-93228 Level 3 Est. Patient 10:45:47 FRENCH TRANSLATOR Esvin Tristan [facility] CPT-91153 Level 3 Est. Patient 10:45:22 FRENCH TRANSLATOR Esvin [facility] CPT-36107 Level 3 Est. Patient 14:18:30 FRENCH TRANSLATOR Esvin [facility] CPT-31170 Level 3 Est. Patient 13:53:29 FRENCH TRANSLATOR Esvin [facility] CPT-24670 Level 3 Est. Patient 10:34:11 CDT Esvin [facility] Procedures Code Procedure Name Date Entry Date Standard Description CPT-26211 Bone Density - XRAY USE ONLY 11:29:32 CDT CPT-23320 LS spine AP and Lat - XRAY USE ONLY 10:07:43 FRENCH TRANSLATOR 10/26 CPT-69757 Venipuncture Draw Fee 09:51:16 FRENCH TRANSLATOR CPT-00421 Smoking Cessation counseling 09:39:47 FRENCH TRANSLATOR CPT-G0438 Initial Annual Wellness Exam 09:37:28 FRENCH TRANSLATOR CPT-21520 Venipuncture Draw Fee 09:26:55 CDT CPT-08633 Venipuncture Draw Fee 11:55:52 CDT CPT-91086 Spec Collection and Handling Fee 09:16:37 CDT CPT-56902 Venipuncture Draw Fee 09:16:37 CDT
--- OUTSIDE RECORDS SUMMARY | 2018-02-26 14:35 | XMS REPORT | Clinical Summary ---
Author Author Admin, E Organization [facility] Address Unknown Phone Unavailable Allergies, Adverse Reactions, [...] care facility Tobacco abuse 305.1 Active Wily Vicnete Gonzalez DO Tobacco use disorder Wellness exam [...] Melissa Scribmartha Adjustment disorder with depressed mood ANKLE PAIN ICD-719.47 Inactive Wily Gonzalez DO 05/08 HYPERTENSION ICD-401.9 Inactive Wily Gonzalez DO ANEMIA ICD-285.9 Inactive Wily Zhang Carlos DO Tinea corporis ICD-110.5 Inactive Wily Gonzalez DO Hemorrhoids ICD-455.6 Inactive Wily Zhang Carlos DO 05/08 Nocturia ICD-788.43 Inactive Wily Gonzalez DO U T I ICD-599.0 Inactive Wily Gonzalez DO U R I ICD-465.9 Inactive Wily Gonzalez DO FH DIABETES ICD-V18.0 Inactive Wily Gonzalez DO Tinea corporis ICD-110.5 Inactive Wily Gonzalez DO Medication List Medication Instructions Start Date Stop Date Generic Name NDC Status Provider Patient Instruction CHANTIX 1 MG TABS 1 twice a day VARENICLINE TARTRATE 42695146787 No Longer Active Wily Gonzalez DO Active RAUL-MAG 500-250 MG ORAL TABS Take one by mouth daily CALCIUM- MAGNESIUM 62586296457 Active Wily Gonzalez DO Active FOSAMAX 70 MG TABS 1 po qweek. Take 30min prior to first food/drink. Avoid lying down x 1 hour. ALENDRONATE SODIUM 51505335903 Active Rose Bang Active CALCIUM 600 MG ORAL TABS 1 po q day CALCIUM 78712310224 Active Rose Bang Active TRIAMCINOLONE ACETONIDE 0.1 % CREA Apply to affected area 3 times daily for up to 2 weeks TRIAMCINOLONE ACETONIDE 23752962628 Active Wily Gonzalez DO Active UALEIWC-NTTPTIAHS-UWJM 167-83-8 MG TABS 1 tab po daily CLHWCQM-[id number] 70787811878 No Longer Active Wily Gonzalez DO Active NYSTATIN 040286 UNIT/GM CREA apply to rash TID PRN NYSTATIN 48023373968 No Longer Active Wily Gonzalez DO Active POLY-IRON 150 150 MG CAPS 1 tab po bid POLYSACCHARIDE IRON COMPLEX 09784057289 No Longer Active Wily Gonzalez DO Active FLONASE ALLERGY RELIEF 50 MCG/ACT NASAL SUSP 2 sprays each nostril every day FLUTICASONE PROPIONATE 18839620203 Active Rose Bang Active CLEMASTINE FUMARATE 1.34 MG ORAL TABS 1 tab PO BID CLEMASTINE FUMARATE 03911114281 No Longer Active Wily Gonzalez DO Active FLOMAX 0.4 MG CAPS 1 capsule in the evening for night time urination. TAMSULOSIN HCL 21329127287 No Longer Active Wily Gonzalez DO Active PROTONIX 40 MG TBEC 1 po daily PANTOPRAZOLE SODIUM 12025487541 Active Lisa Berkowitz Active HYDROXYZINE HCL 25 MG TAB 1 two times a day as needed for anxiety HYDROXYZINE HCL 67278681107 No Longer Active Wily Gonzalez DO Active ANUSOL-HC 25 MG SUPPOSITORY 1 rectally every 12 hours for irritation HYDROCORTISONE NAEL (RECTAL) 36382297861 No Longer Active Wily Gonzalez DO Active HYDROXYZINE HCL 25 MG TABS Take one (1) tablet by mouth twice a day HYDROXYZINE HCL 67846680077 No Longer Active Wily Gonzalez DO Active ZIAC 2.5-6.25 MG TAB 1 tablet daily for high blood pressure 10/27 BISOPROLOL-HCTZ 65227315013 No Longer Active Wily Gonzalez DO Active ZIAC 2.5-6.25 MG TAB 1 tablet every morning for high blood pressure BISOPROLOL-HCTZ 25027151879 No Longer Active Wily Gonzalez DO Active AMOXICILLIN 500 MG CAPS Take one (1) tablet by mouth three times a day 05/05 AMOXICILLIN 35639117161 No Longer Active Wily Gonzalez DO Active MORPHINE SULFATE ER 100 MG CR-TABS Take one (1) tablet by mouth twice a day MORPHINE SULFATE 79743804496 No Longer Active Wily Gonzalez DO Active MORPHINE SULFATE ER 100 MG [id number] 1 capsule twice daily for chronic pain MORPHINE SULFATE 63747514392 Active Wily Gonzalez DO Active CIALIS 10 MG TABS 1 every 72 hours as needed TADALAFIL 76802964692 No Longer Active Esvin PAULA Active FLONASE 50 MCG/ACT SUSP 2 SPRAY EACH NARE DAILY FLUTICASONE PROPIONATE 50057116651 No Longer Active Esvin PAULA Active CYCLOBENZAPRINE HCL 10 MG TABS Take one (1) tablet by mouth three times a day CYCLOBENZAPRINE HCL 28513228099 Active Lisa Berkowitz Active OPANA ER (CRUSH RESISTANT) 40 MG ES49I-IVP Take one (1) tablet by mouth twice a day OXYMORPHONE HCL 31235956356 No Longer Active Esvin PAULA Active PROAIR HFA 108 (90 BASE) MCG/ACT AERS 2 puffs every four hours as needed ALBUTEROL SULFATE 42268735840 No Longer Active Esvin PAULA Active CLEARLAX POWD 17gm q day prn constipation POLYETHYLENE GLYCOL 3350 71047217505 Active Wily Gonzalez DO Active MORPHINE SULFATE ER 100 MG UI00A-CAI Take one (1) tablet by mouth twice a day MORPHINE SULFATE 82003759700 No Longer Active Esvin PAULA Active FLEXERIL 10 MG TAB 1 tablet by mouth 3 times daily as needed CYCLOBENZAPRINE HCL 13622112875 No Longer Active Esvin PAULA Active CELEBREX 200 MG CAPS 1 tablet by mouth twice daily with meals CELECOXIB 12698403606 No Longer Active Esvin PAULA Active NEXIUM 40 MG CPDR 1 cap daily ESOMEPRAZOLE MAGNESIUM 20539019497 No Longer Active Esvin PAULA Active MOBIC 15 MG TABS 1 tab daily MELOXICAM 30147272673 No Longer Active Esvin PAULA Active LISINOPRIL 20 MG TABS Take 1 tablet by mouth daily LISINOPRIL 96867636265 No Longer Active Esvin PAULA Active DICLOFENAC SODIUM 50 MG TBEC 1 tablet by mouth four times daily DICLOFENAC SODIUM 79303510543 No Longer Active Paula Cooney RN Active VERAMYST 27.5 MCG/SPRAY SUSP 2 spray each nare daily FLUTICASONE FUROATE 02856373647 No Longer Active Megan Vargas RN Active ENDOCET 10-325 MG TABS Take one (1) tablet by mouth three times a day OXYCODONE-ACETAMINOPHEN 59292044944 Active Wily Gonzalez DO Active ALPRAZOLAM 2 MG TABS Take one (1) tablet by mouth three times a day ALPRAZOLAM 38840386366 Active Rose Bang Active NEXIUM 40 MG CPDR 1 cap by mouth daily ESOMEPRAZOLE MAGNESIUM 34341980493 No Longer Active Esvin PAULA Active ALPRAZOLAM 2 MG TABS 1 tablet by mouth three times daily as needed ALPRAZOLAM 36060601300 No Longer Active Esvin PAULA Active HYDROXYZINE HCL 25 MG TAB take 1 every 4-6 hours as needed 07/01 HYDROXYZINE HCL 64255633983 No Longer Active Esvin PAULA Active ENDOCET 10-325 MG TABS 1 by mouth twice a day OXYCODONE-ACETAMINOPHEN 56948333383 No Longer Active Esvin PAULA Active MS CONTIN 100 MG HE82A-SVH 1 by mouth twice a day MORPHINE SULFATE 34589563751 No Longer Active Esvin PAULA Active SUDAFED 30 MG TAB 1-2 every 4-6 hours as needed PSEUDOEPHEDRINE HCL 11479049606 Active Lisa Berkowitz Active VERAMYST 27.5 MCG/SPRAY SUSP 2 spray each nare daily VERAMYST 27.5 MCG/SPRAY SUSP FLUTICASONE FUROATE Inactive DICLOFENAC SODIUM 50 MG TBEC 1 tablet by mouth four times daily DICLOFENAC SODIUM 50 MG TBEC 695287 DICLOFENAC SODIUM Inactive LISINOPRIL 20 MG TABS Take 1 tablet by mouth daily LISINOPRIL 20 MG TABS 791422 LISINOPRIL Inactive MOBIC 15 MG TABS 1 tab daily MOBIC 15 MG TABS 591101 MELOXICAM Inactive NEXIUM 40 MG CPDR 1 cap daily NEXIUM 40 MG CPDR 042114 ESOMEPRAZOLE MAGNESIUM Inactive CELEBREX 200 MG CAPS 1 tablet by mouth twice daily with meals CELEBREX 200 MG CAPS 590692 CELECOXIB Inactive FLEXERIL 10 MG TAB 1 tablet by mouth 3 times daily as needed FLEXERIL 10 MG TAB CYCLOBENZAPRINE HCL Inactive PROAIR HFA 108 (90 BASE) MCG/ACT AERS 2 puffs every four hours as needed PROAIR HFA 108 (90 BASE) MCG/ACT AERS ALBUTEROL SULFATE Inactive FLONASE 50 MCG/ACT SUSP 2 SPRAY EACH NARE DAILY FLONASE 50 MCG/ACT SUSP 2863728 FLUTICASONE PROPIONATE Inactive CIALIS 10 MG TABS 1 every 72 hours as needed CIALIS 10 MG TABS TADALAFIL Inactive MORPHINE SULFATE ER 100 MG CR-TABS Take one (1) tablet by mouth twice a day MORPHINE SULFATE ER 100 MG CR-TABS MORPHINE SULFATE Inactive AMOXICILLIN 500 MG CAPS Take one (1) tablet by mouth three times a day 05/05 AMOXICILLIN 500 MG CAPS 549476 AMOXICILLIN Inactive ZIAC 2.5-6.25 MG TAB 1 tablet every morning for high blood pressure ZIAC 2.5-6.25 MG TAB 144812 BISOPROLOL-HCTZ Inactive ZIAC 2.5-6.25 MG TAB 1 tablet daily for high blood pressure 10/27 ZIAC 2.5-6.25 MG TAB 799110 BISOPROLOL-HCTZ Inactive HYDROXYZINE HCL 25 MG TABS Take one (1) tablet by mouth twice a day HYDROXYZINE HCL 25 MG TABS 242926 HYDROXYZINE HCL Inactive ANUSOL-HC 25 MG SUPPOSITORY 1 rectally every 12 hours for irritation ANUSOL-HC 25 MG SUPPOSITORY 5689110 HYDROCORTISONE NAEL (RECTAL ) Inactive HYDROXYZINE HCL 25 MG TAB 1 two times a day as needed for anxiety HYDROXYZINE HCL 25 MG TAB 432135 HYDROXYZINE HCL Inactive FLOMAX 0.4 MG CAPS 1 capsule in the evening for night time urination. FLOMAX 0.4 MG CAPS 880916 TAMSULOSIN HCL Inactive CLEMASTINE FUMARATE 1.34 MG ORAL TABS 1 tab PO BID CLEMASTINE FUMARATE 1.34 MG ORAL TABS 289673 CLEMASTINE FUMARATE Inactive POLY-IRON 150 150 MG CAPS 1 tab po bid POLY-IRON 150 150 MG CAPS 264566 POLYSACCHARIDE IRON COMPLEX Inactive NYSTATIN 126970 UNIT/GM CREA apply to rash TID PRN NYSTATIN 881237 UNIT/GM CREA 406046 NYSTATIN Inactive SJAHSWI-BSRVJZCCJ-TWKS 167-83-8 MG TABS 1 tab po daily XRHUXGF-NWSGPVAEM-HYBW 167-83-8 MG TABS 31607729103 CALCIUM-MAGNESIUM- ZINC Inactive CHANTIX 1 MG TABS 1 twice a day CHANTIX 1 MG TABS VARENICLINE TARTRATE Inactive MS CONTIN 100 MG [id number] 1 by mouth twice a day MS CONTIN 100 MG [id number]-KOW MORPHINE SULFATE Inactive ENDOCET 10-325 MG TABS 1 by mouth twice a day ENDOCET 10-325 MG TABS 7388798 OXYCODONE-ACETAMINOPHEN Inactive HYDROXYZINE HCL 25 MG TAB take 1 every 4-6 hours as needed 07/01 HYDROXYZINE HCL 25 MG TAB 932840 HYDROXYZINE HCL Inactive ALPRAZOLAM 2 MG TABS 1 tablet by mouth three times daily as needed ALPRAZOLAM 2 MG TABS 641934 ALPRAZOLAM Inactive NEXIUM 40 MG CPDR 1 cap by mouth daily NEXIUM 40 MG CPDR 886882 ESOMEPRAZOLE MAGNESIUM Inactive Advance Directives Directive Description [...] Measured Encounters Code Encounter Date Provider Facility CPT-62315 Level 4 Est. Patient 12:51:46 CDT Wily Gonzalez [facility] CPT-54179 Level 4 Est. Patient 10:10:03 CDT Wily Gonzalez [facility] CPT-59584 Level 3 Est. Patient 14:25:57 CDT Wily Gonzalez [facility] CPT-90220 Level 3 Est. Patient 09:51:37 METAL MIXER Wily Gonzalez [facility] CPT-55909 Level 3 Est. Patient 11:07:48 CDT Wily Gonzalez [facility] CPT-17525 Level 3 Est. Patient 11:24:24 CDT Wily Gonzalez [facility] CPT-20170 Level 3 Est. Patient 15:19:54 METAL MIXER Wily Gonzalez [facility] CPT-92583 Level 3 Est. Patient 10:04:45 CDT Wily Gonzalez [facility] CPT-74870 Level 3 Est. Patient 13:04:06 CDT Wily Gonzalez [facility] CPT-43348 Level 3 Est. Patient 12:23:04 CDT Wily Gonzalez [facility] CPT-29181 Level 3 Est. Patient 15:43:10 METAL MIXER Wily Gonzalez [facility] CPT-55437 Level 3 Est. Patient 16:10:54 CDT Wily Gonzalez [facility] CPT-25254 Level 3 Est. Patient 19:50:51 CDT Wily Gonzalez [facility] CPT-84639 Level 3 Est. Patient 12:02:30 METAL MIXER Wily Gonzalez [facility] CPT-64670 Level 3 Est. Patient 12:03:11 METAL MIXER Wily Gonzalez [facility] CPT-63104 Level 3 Est. Patient 12:01:41 METAL MIXER Wily Gonzalez [facility] CPT-21928 Level 3 Est. Patient 11:51:24 METAL MIXER Wily Gonzalez [facility] CPT-58667 Level 3 Est. Patient 11:58:20 METAL MIXER Wily Gonzalez [facility] CPT-23264 Level 3 Est. Patient 08:31:36 METAL MIXER Wily Gonzalez [facility] CPT-06441 Level 3 Est. Patient 21:57:36 CDT Wily Gonzalez [facility] CPT-76271 Level 3 Est. Patient 10:49:58 CDT Esvin PAULA [facility] CPT-14421 Level 3 Est. Patient 11:22:52 CDT Esvin PAULA [facility] CPT-08334 Level 3 Est. Patient 13:49:41 CDT Esvin PAULA [facility] CPT-42825 Level 3 Est. Patient 11:54:53 CDT Esvin PAULA [facility] CPT-33998 Level 3 Est. Patient 09:07:11 CDT Esvin PAULA [facility] CPT-61659 Level 3 Est. Patient 13:52:47 CDT Esvin PAULA [facility] CPT-00928 Level 3 Est. Patient 11:26:46 CDT Esvin PAULA [facility] CPT-22081 Level 3 Est. Patient 10:25:00 METAL MIXER Esvin Hudson CHAI [facility] CPT-63765 Level 3 Est. Patient 11:39:11 METAL MIXER Esvin Hudson [facility] CPT-69298 Level 3 Est. Patient 13:24:24 METAL MIXER Esvin Hudson [facility] CPT-83956 Level 3 Est. Patient 10:26:13 METAL MIXER Esvin PAULA [facility] CPT-70314 Level 3 Est. Patient 10:21:21 CDT Esvin Husdon [facility] CPT-65455 Level 3 Est. Patient 10:26:30 CDT Esvin PAULA [facility] CPT-85997 Level 3 Est. Patient 09:16:37 CDT Esvin Hudson [facility] CPT-60758 Level 3 Est. Patient 09:06:58 CDT Esvin PAULA [facility] CPT-20235 Level 3 Est. Patient 10:05:29 CDT Esvin Hudson [facility] CPT-88488 Level 3 Est. Patient 10:38:45 CDT Esvin Tristan [facility] CPT-78421 Level 3 Est. Patient 10:09:45 CDT Esvin Tristan [facility] CPT-95135 Level 3 Est. Patient 09:26:37 CDT Esvin Hudson [facility] CPT-64773 Level 3 Est. Patient 10:34:42 METAL MIXER Esvin Hudson [facility] CPT-95432 Level 3 Est. Patient 10:45:47 METAL MIXER Esvin Wayland [facility] CPT-66978 Level 3 Est. Patient 10:45:22 METAL MIXER Esvin Tristan [facility] CPT-46767 Level 3 Est. Patient 14:18:30 METAL MIXER Esvin Tristan [facility] CPT-95709 Level 3 Est. Patient 13:53:29 METAL MIXER Esvin [facility] CPT-98814 Level 3 Est. Patient 10:34:11 CDT Esvin Wayland [facility] Procedures Code Procedure Name Date Entry Date Standard Description CPT-56481 Smoking Cessation counseling 10:10:03 CDT CPT-26047 Smoking Cessation counseling 14:25:57 CDT CPT-45687 Bone Density - XRAY USE ONLY 11:29:32 CDT CPT-32527 LS spine AP and Lat - XRAY USE ONLY 10:07:43 METAL MIXER 10/26 CPT-80812 Venipuncture Draw Fee 09:51:16 METAL MIXER CPT-60519 Smoking Cessation counseling 09:39:47 METAL MIXER CPT-G0438 Initial Annual Wellness Exam 09:37:28 METAL MIXER CPT-77720 Venipuncture Draw Fee 09:26:55 CDT CPT-71474 Venipuncture Draw Fee 11:55:52 CDT CPT-21786 Spec Collection and Handling Fee 09:16:37 CDT CPT-15851 Venipuncture Draw Fee 09:16:37 CDT
--- OUTSIDE RECORDS SUMMARY | 2018-02-26 14:36 | XMS REPORT | Clinical Summary ---
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 Marylou Melissa Scribmartha Adjustment disorder with depressed mood High blood [...] Generic Name NDC Status Provider Patient Instruction METOPROLOL SUCCINATE ER 25 MG ORAL TABLET EXTENDED RELEASE 24 HOUR 1 pill by mouth daily for blood pressure METOPROLOL SUCCINATE 71697847530 Active Wily Gonzalez DO Active METOPROLOL TARTRATE 25 MG ORAL TABLET 1/2 tab by mouth twice dialy for blood pressure METOPROLOL TARTRATE 22332872272 No Longer Active Wily Gonzalez DO Active PROTONIX 40 MG ORAL TABLET DELAYED RELEASE 1 po prn PANTOPRAZOLE SODIUM 31536667380 Active Wily Gonzalez DO Active TRIAMCINOLONE ACETONIDE 0.1 % EXTERNAL CREAM Apply to affected area 3 times daily for up to 2 weeks TRIAMCINOLONE ACETONIDE 77392687777 No Longer Active Wily Gonzalez DO Active CHANTIX 1 MG ORAL TABLET 1 twice a day VARENICLINE TARTRATE 37459047388 No Longer Active Wily Gonzalez DO Active RAUL-MAG 500-250 MG ORAL TABLET Take one by mouth daily CALCIUM -MAGNESIUM 40985592858 Active Wily Gonzalez DO Active FOSAMAX 70 MG ORAL TABLET 1 po qweek. Take 30min prior to first food/drink. Avoid lying down x 1 hour. ALENDRONATE SODIUM 69317709025 Active Laurie Latham LPN Active CALCIUM 600 MG ORAL TABLET 1 po q day CALCIUM 51613631534 Active Rose Bang Active [id number]-[id number] 167-83-8 MG ORAL TABLET 1 tab po daily [id number] 01718196801 No Longer Active Wily Gonzalez DO Active NYSTATIN 882126 UNIT/GM EXTERNAL CREAM apply to rash TID PRN 2015 NYSTATIN 88706364878 No Longer Active Wily Gonzalez DO Active POLY-IRON 150 150 MG ORAL CAPSULE 1 tab po bid POLYSACCHARIDE IRON COMPLEX 40359352913 No Longer Active Wily Gonzalez DO Active FLONASE ALLERGY RELIEF 50 MCG/ACT NASAL SUSPENSION 2 sprays each nostril every day FLUTICASONE PROPIONATE 81822125008 Active Wily Gonzalez DO Active CLEMASTINE FUMARATE 1.34 MG ORAL TABLET 1 tab PO BID CLEMASTINE FUMARATE 25707083525 No Longer Active Wily Gonzalez DO Active FLOMAX 0.4 MG ORAL CAPSULE 1 capsule in the evening for night time urination. TAMSULOSIN HCL 96407272910 No Longer Active Wily Gonzalez DO Active HYDROXYZINE HCL 25 MG ORAL TABLET 1 two times a day as needed for anxiety HYDROXYZINE HCL 68520986129 No Longer Active Wily Gonzalez DO Active ANUSOL-HC 25 MG RECTAL SUPPOSITORY 1 rectally every 12 hours for irritation HYDROCORTISONE NAEL (RECTAL) 80731735778 No Longer Active Wily Gonzalez DO Active HYDROXYZINE HCL 25 MG ORAL TABLET Take one (1) tablet by mouth twice a day HYDROXYZINE HCL 47855280641 No Longer Active Wily Gonzalez DO Active ZIAC 2.5-6.25 MG ORAL TABLET 1 tablet daily for high blood pressure BISOPROLOL-HCTZ 93713550624 No Longer Active Wily Gonzalez DO Active ZIAC 2.5-6.25 MG ORAL TABLET 1 tablet every morning for high blood pressure BISOPROLOL-HCTZ 68314688292 No Longer Active Wily Gonzalez DO Active AMOXICILLIN 500 MG ORAL CAPSULE Take one (1) tablet by mouth three times a day AMOXICILLIN 96277095290 No Longer Active Wily Gonzalez DO Active MORPHINE SULFATE ER 100 MG ORAL TABLET EXTENDED RELEASE Take one (1) tablet by mouth twice a day MORPHINE SULFATE 59764692852 No Longer Active Wily Gonzalez DO Active MORPHINE SULFATE ER 100 MG ORAL CAPSULE EXTENDED RELEASE 24 HOUR 1 capsule twice daily for chronic pain MORPHINE SULFATE 31866454312 Active Wily Gonzalez DO Active CIALIS 10 MG ORAL TABLET 1 every 72 hours as needed TADALAFIL 03922985564 No Longer Active Esvin PAULA Active FLONASE 50 MCG/ACT NASAL SUSPENSION 2 SPRAY EACH NARE DAILY 05/08 FLUTICASONE PROPIONATE 91491832138 No Longer Active Esvin PAULA Active CYCLOBENZAPRINE HCL 10 MG ORAL TABLET Take one (1) tablet by mouth three times a day CYCLOBENZAPRINE HCL 33583505389 Active Rose Bang Active OPANA ER 40 MG ORAL TABLET ER 12 HOUR ABUSE-DETERRENT Take one (1) tablet by mouth twice a day OXYMORPHONE HCL 47136016125 No Longer Active Esvin PAULA Active PROAIR HFA 108 (90 Base) MCG/ACT INHALATION AEROSOL SOLUTION 2 puffs every four hours as needed ALBUTEROL SULFATE 27290808692 No Longer Active Esvin PAULA Active CLEARLAX ORAL POWDER 17gm q day prn constipation POLYETHYLENE GLYCOL 3350 78362011930 Active Wily Gonzalez DO Active MORPHINE SULFATE ER 100 MG ORAL CAPSULE EXTENDED RELEASE 24 HOUR Take one (1) tablet by mouth twice a day MORPHINE SULFATE 77654297830 No Longer Active Esvin PAULA Active FLEXERIL 10 MG TAB 1 tablet by mouth 3 times daily as needed CYCLOBENZAPRINE HCL 04005469176 No Longer Active Esvin PAULA Active CELEBREX 200 MG ORAL CAPSULE 1 tablet by mouth twice daily with meals 2012 CELECOXIB 77827690620 No Longer Active Esvin PAULA Active NEXIUM 40 MG ORAL CAPSULE DELAYED RELEASE 1 cap daily ESOMEPRAZOLE MAGNESIUM 18019288644 No Longer Active Esvin PAULA Active MOBIC 15 MG ORAL TABLET 1 tab daily MELOXICAM 59930704631 No Longer Active Esvin PAULA Active LISINOPRIL 20 MG ORAL TABLET Take 1 tablet by mouth daily LISINOPRIL 84899274933 No Longer Active Esvin PAULA Active DICLOFENAC SODIUM 50 MG ORAL TABLET DELAYED RELEASE 1 tablet by mouth four times daily DICLOFENAC SODIUM 24210611035 No Longer Active Paula Cooney RN Active VERAMYST 27.5 MCG/SPRAY NASAL SUSPENSION 2 spray each nare daily FLUTICASONE FUROATE 16015340742 No Longer Active Megan Vargas RN Active ENDOCET 10-325 MG ORAL TABLET Take one (1) tablet by mouth three times a day OXYCODONE-ACETAMINOPHEN 56685387857 Active Wily Gonzalez DO Active ALPRAZOLAM 2 MG ORAL TABLET Take one (1) tablet by mouth three times a day ALPRAZOLAM 89042476500 Active Wily Gonzalez DO Active NEXIUM 40 MG ORAL CAPSULE DELAYED RELEASE 1 cap by mouth daily ESOMEPRAZOLE MAGNESIUM 30488181071 No Longer Active Esvin PAULA Active ALPRAZOLAM 2 MG ORAL TABLET 1 tablet by mouth three times daily as needed ALPRAZOLAM 81793375311 No Longer Active Esvin PAULA Active HYDROXYZINE HCL 25 MG ORAL TABLET take 1 every 4-6 hours as needed HYDROXYZINE HCL 64954776318 No Longer Active Esvin PAULA Active ENDOCET 10-325 MG ORAL TABLET 1 by mouth twice a day OXYCODONE-ACETAMINOPHEN 72433685999 No Longer Active Esvin PAULA Active MS CONTIN 100 MG ORAL TABLET EXTENDED RELEASE 1 by mouth twice a day MORPHINE SULFATE 32974174539 No Longer Active Esvin PAULA Active SUDAFED 30 MG ORAL TABLET 1-2 every 4-6 hours as needed PSEUDOEPHEDRINE HCL 69080987558 Active Wily Gonzalez DO Active VERAMYST 27.5 MCG/SPRAY NASAL SUSPENSION 2 spray each nare daily VERAMYST 27.5 MCG/SPRAY NASAL SUSPENSION FLUTICASONE FUROATE Inactive DICLOFENAC SODIUM 50 MG ORAL TABLET DELAYED RELEASE 1 tablet by mouth four times daily DICLOFENAC SODIUM 50 MG ORAL TABLET DELAYED RELEASE 346624 DICLOFENAC SODIUM Inactive LISINOPRIL 20 MG ORAL TABLET Take 1 tablet by mouth daily LISINOPRIL 20 MG ORAL TABLET 292510 LISINOPRIL Inactive MOBIC 15 MG ORAL TABLET 1 tab daily MOBIC 15 MG ORAL TABLET 936859 MELOXICAM Inactive NEXIUM 40 MG ORAL CAPSULE DELAYED RELEASE 1 cap daily NEXIUM 40 MG ORAL CAPSULE DELAYED RELEASE 393875 ESOMEPRAZOLE MAGNESIUM Inactive CELEBREX 200 MG ORAL CAPSULE 1 tablet by mouth twice daily with meals 2012 CELEBREX 200 MG ORAL CAPSULE 620548 CELECOXIB Inactive FLEXERIL 10 MG TAB 1 [...] DAILY 05/08 FLONASE 50 MCG/ACT NASAL SUSPENSION 9428102 FLUTICASONE PROPIONATE Inactive CIALIS 10 MG ORAL [...] a day AMOXICILLIN 500 MG ORAL CAPSULE 513141 AMOXICILLIN Inactive ZIAC 2.5-6.25 MG ORAL TABLET 1 tablet every morning for high blood pressure ZIAC 2.5-6.25 MG ORAL TABLET 388526 BISOPROLOL-HCTZ Inactive ZIAC 2.5-6.25 MG ORAL TABLET 1 tablet daily for high blood pressure ZIAC 2.5-6.25 MG ORAL TABLET 342014 BISOPROLOL-HCTZ Inactive HYDROXYZINE HCL 25 MG ORAL TABLET Take one (1) tablet by mouth twice a day HYDROXYZINE HCL 25 MG ORAL TABLET 880439 HYDROXYZINE HCL Inactive ANUSOL-HC 25 MG RECTAL SUPPOSITORY 1 rectally every 12 hours for irritation ANUSOL-HC 25 MG RECTAL SUPPOSITORY 8260787 HYDROCORTISONE NAEL (RECTAL) Inactive HYDROXYZINE HCL 25 MG ORAL TABLET 1 two times a day as needed for anxiety HYDROXYZINE HCL 25 MG ORAL TABLET 521105 HYDROXYZINE HCL Inactive FLOMAX 0.4 MG ORAL CAPSULE 1 capsule in the evening for night time urination. FLOMAX 0.4 MG ORAL CAPSULE 309373 TAMSULOSIN HCL Inactive CLEMASTINE FUMARATE 1.34 MG ORAL TABLET 1 tab PO BID CLEMASTINE FUMARATE 1.34 MG ORAL TABLET 910551 CLEMASTINE FUMARATE Inactive POLY-IRON 150 150 MG ORAL CAPSULE 1 tab po bid POLY-IRON 150 150 MG ORAL CAPSULE 857450 POLYSACCHARIDE IRON COMPLEX Inactive NYSTATIN 180233 UNIT/GM EXTERNAL CREAM apply to rash TID PRN 2015 NYSTATIN 821528 UNIT/GM EXTERNAL CREAM 966343 NYSTATIN Inactive DLIXGAJ-CCIAUVKES-ZXZG 167-83-8 MG ORAL TABLET 1 tab po daily ABNZCPO-WGCZMEKWE-XBRJ 167-83-8 MG ORAL TABLET 58431308715 CALCIUM -MAGNESIUM-ZINC Inactive CHANTIX 1 MG ORAL TABLET 1 twice a day CHANTIX 1 MG ORAL TABLET VARENICLINE TARTRATE Inactive TRIAMCINOLONE ACETONIDE 0.1 % EXTERNAL CREAM Apply to affected area 3 times daily for up to 2 weeks TRIAMCINOLONE ACETONIDE 0.1 % EXTERNAL CREAM 0435679 TRIAMCINOLONE ACETONIDE Inactive METOPROLOL TARTRATE 25 MG ORAL TABLET 1/2 tab by mouth twice dialy for blood pressure METOPROLOL TARTRATE 25 MG ORAL TABLET 343461 METOPROLOL TARTRATE Inactive MS CONTIN 100 MG ORAL TABLET EXTENDED RELEASE 1 by mouth twice a day MS CONTIN 100 MG ORAL TABLET EXTENDED RELEASE MORPHINE SULFATE Inactive ENDOCET 10-325 MG ORAL TABLET 1 by mouth twice a day ENDOCET 10-325 MG ORAL TABLET 2001416 OXYCODONE-ACETAMINOPHEN Inactive HYDROXYZINE HCL 25 MG ORAL TABLET take 1 every 4-6 hours as needed HYDROXYZINE HCL 25 MG ORAL TABLET 490968 HYDROXYZINE HCL Inactive ALPRAZOLAM 2 MG ORAL TABLET 1 tablet by mouth three times daily as needed ALPRAZOLAM 2 MG ORAL TABLET 451186 ALPRAZOLAM Inactive NEXIUM 40 MG ORAL CAPSULE DELAYED RELEASE 1 cap by mouth daily NEXIUM 40 MG ORAL CAPSULE DELAYED RELEASE 417615 ESOMEPRAZOLE MAGNESIUM Inactive Advance Directives Directive Description Start Date PERMISSION TO SHARE Vital Signs Date Name Value Unit Range Description blood pressure, diastolic 82 mm[Hg] BP stoddard [...] temperature weight E&M 166.38 [lb_av] Weight Measured Diagnostic Results Date Name [...] Ag - Chemistry sodium, serum 141 mmol/L 069-784 1748/05/03 carbon dioxide, venous blood 35.9 mmol/L 21.0-32.0 potassium, serum 4.2 mmol/L 3.5-5.2 chloride, serum 105 mmol/L 98-107 blood glucose 77 mg/dL 65-95 urea nitrogen, blood 12 mg/dL 7-18 creatinine, serum 0.90 mg/dL 0.60-1.30 alanine aminotransferase (SGPT), serum 19 U/L 12-78 aspartate aminotransferase (SGOT), serum 14 U/L 15-37 calcium, serum 9.1 mg/dL 8.5-10.1 bilirubin, serum, total 0.20 mg/dL 0.00-1.00 cholesterol, serum 178 mg/dL 615-467 6503/05/03 triglyceride, serum, fasting 96 mg/dL 30-200 HDL cholesterol, serum 78 mg/dL 32-60 LDL cholesterol, serum 81 mg/dL 0-130 prostate specific antigen 0.04 ng/mL 0.00-4.00 Encounters Code Encounter Date Provider Facility CPT-90259 Level 4 Est. Patient 16:18:01 CDT Wily Gonzalez [facility] CPT-84191 Level 4 Est. Patient 16:17:36 CDT Wily Zhang [facility] CPT-08538 Level 4 Est. Patient 12:51:46 CDT Wily Zhang [facility] CPT-38008 Level 4 Est. Patient 10:10:03 CDT Wily Gonzalez [facility] CPT-46436 Level 3 Est. Patient 14:25:57 CDT Wily Zhang [facility] CPT-05282 Level 3 Est. Patient 09:51:37 MILLWORK ESTIMATOR Wliy Gonzalez [facility] CPT-95269 Level 3 Est. Patient 11:07:48 CDT Wily Zhang [facility] CPT-82092 Level 3 Est. Patient 11:24:24 CDT Wily Zhang [facility] CPT-50814 Level 3 Est. Patient 15:19:54 MILLWORK ESTIMATOR Wily Zhang [facility] CPT-23787 Level 3 Est. Patient 10:04:45 CDT Wily Gonzalez [facility] CPT-60893 Level 3 Est. Patient 13:04:06 CDT Wily Zhang [facility] CPT-56012 Level 3 Est. Patient 12:23:04 CDT Wily Zhang [facility] CPT-34421 Level 3 Est. Patient 15:43:10 MILLWORK ESTIMATOR Wily Zhang [facility] CPT-99130 Level 3 Est. Patient 16:10:54 CDT Wily Zhang [facility] CPT-86497 Level 3 Est. Patient 19:50:51 CDT Wily Zhang [facility] CPT-17754 Level 3 Est. Patient 12:02:30 MILLWORK ESTIMATOR Wily Zhang [facility] CPT-11633 Level 3 Est. Patient 12:03:11 MILLWORK ESTIMATOR Wily Gonzalez [facility] CPT-18031 Level 3 Est. Patient 12:01:41 MILLWORK ESTIMATOR Wily Gonzalez [facility] CPT-52758 Level 3 Est. Patient 11:51:24 MILLWORK ESTIMATOR Wily Gonzalez [facility] CPT-28496 Level 3 Est. Patient 11:58:20 MILLWORK ESTIMATOR Wily Gonzalez [facility] CPT-82247 Level 3 Est. Patient 08:31:36 MILLWORK ESTIMATOR Wily Gonzalez [facility] CPT-61471 Level 3 Est. Patient 21:57:36 CDT Wily Gonzalez [facility] CPT-68541 Level 3 Est. Patient 10:49:58 CDT Esvin PAULA [facility] CPT-55752 Level 3 Est. Patient 11:22:52 CDT Esvin PAULA [facility] CPT-32065 Level 3 Est. Patient 13:49:41 CDT sEvin PAULA [facility] CPT-24461 Level 3 Est. Patient 11:54:53 CDT Esvin PAULA [facility] CPT-82958 Level 3 Est. Patient 09:07:11 CDT Esvin PAULA [facility] CPT-28691 Level 3 Est. Patient 13:52:47 CDT Esvin PAULA [facility] CPT-47511 Level 3 Est. Patient 11:26:46 CDT Esvin PAULA [facility] CPT-20158 Level 3 Est. Patient 10:25:00 MILLWORK ESTIMATOR Esvin PAULA [facility] CPT-10454 Level 3 Est. Patient 11:39:11 MILLWORK ESTIMATOR Esvin PAULA [facility] CPT-70109 Level 3 Est. Patient 13:24:24 MILLWORK ESTIMATOR Esvin PAULA [facility] CPT-84954 Level 3 Est. Patient 10:26:13 MILLWORK ESTIMATOR Esvin PAULA [facility]-98511 Level 3 Est. Patient 10:21:21 CDT Esvin PAULA [facility] CPT-82693 Level 3 Est. Patient 10:26:30 CDT Esvin PAULA [facility] CPT-28102 Level 3 Est. Patient 09:16:37 CDT Esvin PAULA [facility]-14288 Level 3 Est. Patient 09:06:58 CDT Esvin PAULA [facility] CPT-01926 Level 3 Est. Patient 10:05:29 CDT Esvin PAULA [facility] CPT-26988 Level 3 Est. Patient 10:38:45 CDT Esvin PAULA [facility] CPT-20462 Level 3 Est. Patient 10:09:45 CDT Esvin PAULA [facility] CPT-60370 Level 3 Est. Patient 09:26:37 CDT Esvin PAULA [facility] CPT-41707 Level 3 Est. Patient 10:34:42 MILLWORK ESTIMATOR Esvin PAULA [facility] CPT-44520 Level 3 Est. Patient 10:45:47 MILLWORK ESTIMATOR Esvin PAULA [facility] CPT-91062 Level 3 Est. Patient 10:45:22 MILLWORK ESTIMATOR Esvin PAULA [facility]-17883 Level 3 Est. Patient 14:18:30 MILLWORK ESTIMATOR Esvin PAULA [facility]-92281 Level 3 Est. Patient 13:53:29 MILLWORK ESTIMATOR Evsin PAULA [facility] CPT-41736 Level 3 Est. Patient 10:34:11 CDT Esvin Hudson [facility] Procedures Code Procedure Name Date Entry Date Standard Description CPT-G0439 Subsequent Annual Wellness Exam 12:28:53 CDT CPT-15146 Smoking Cessation counseling 10:10:03 CDT CPT-93683 Smoking Cessation counseling 14:25:57 CDT CPT-70041 Bone Density - XRAY USE ONLY 11:29:32 CDT CPT-49408 LS spine AP and Lat - XRAY USE ONLY 10:07:43 MILLWORK ESTIMATOR 10/26 CPT-50076 Venipuncture Draw Fee 09:51:16 MILLWORK ESTIMATOR CPT-85003 Smoking Cessation counseling 09:39:47 MILLWORK ESTIMATOR CPT-G0438 Initial Annual Wellness Exam 09:37:28 MILLWORK ESTIMATOR CPT-25611 Venipuncture Draw Fee 09:26:55 CDT CPT-10883 Venipuncture Draw Fee 11:55:52 CDT CPT-51570 Spec Collection and Handling Fee 09:16:37 CDT CPT-90009 Venipuncture Draw Fee 09:16:37 CDT
--- OUTSIDE RECORDS SUMMARY | 2018-02-26 14:36 | XMS REPORT | Clinical Summary ---
Author Author Admin, E Organization [employer] Address Unknown Phone Unavailable Allergies, Adverse Reactions, [...] Start Date Stop Date Generic Name [facility] Status Provider Patient Instruction FOSAMAX 70 MG TABS 1 po qweek. Take 30min prior to first food/drink. Avoid lying down x 1 hour. ALENDRONATE SODIUM [id number] Active Rose Bang Active CALCIUM 600 MG ORAL TABS 1 po q day CALCIUM 87127951502 Active Rose Bang Active CHANTIX 1 MG TABS 1 twice a day VARENICLINE TARTRATE 92162176187 Active Wily Gonzalez DO Active TRIAMCINOLONE ACETONIDE 0.1 % CREA Apply to affected area 3 times daily for up to 2 weeks TRIAMCINOLONE ACETONIDE 97149077275 Active Wily Gonzalez DO Active [id number] 167-83-8 MG TABS 1 tab po daily [id number] 35256436319 No Longer Active Wily Gonzalez DO Active NYSTATIN 757998 UNIT/GM CREA apply to rash TID PRN NYSTATIN 67133906976 No Longer Active Wily Gonzalez DO Active POLY-IRON 150 150 MG CAPS 1 tab po bid POLYSACCHARIDE IRON COMPLEX 43133966837 No Longer Active Wily Gonzalez DO Active FLONASE ALLERGY RELIEF 50 MCG/ACT NASAL SUSP 2 sprays each nostril every day FLUTICASONE PROPIONATE 62172395063 Active Jodi Lucas APRN Active CLEMASTINE FUMARATE 1.34 MG ORAL TABS 1 tab PO BID CLEMASTINE FUMARATE 79970848672 No Longer Active Wily Gonzalez DO Active FLOMAX 0.4 MG CAPS 1 capsule in the evening for night time urination. TAMSULOSIN HCL 66445587568 No Longer Active Wily Gonzalez DO Active PROTONIX 40 MG TBEC 1 po daily PANTOPRAZOLE SODIUM 05535048269 Active Agnieszka Yeung Active HYDROXYZINE HCL 25 MG TAB 1 two times a day as needed for anxiety HYDROXYZINE HCL 90434973923 No Longer Active Wily Gonzalez DO Active ANUSOL-HC 25 MG SUPPOSITORY 1 rectally every 12 hours for irritation HYDROCORTISONE NAEL (RECTAL) 08292099929 No Longer Active Wily Gonzalez DO Active HYDROXYZINE HCL 25 MG TABS Take one (1) tablet by mouth twice a day HYDROXYZINE HCL 51170547120 No Longer Active Wily Gonzalez DO Active ZIAC 2.5-6.25 MG TAB 1 tablet daily for high blood pressure 10/27 BISOPROLOL-HCTZ 68700033128 No Longer Active Wily Gonzalez DO Active ZIAC 2.5-6.25 MG TAB 1 tablet every morning for high blood pressure BISOPROLOL-HCTZ 22394827665 No Longer Active Wily Gonzalez DO Active AMOXICILLIN 500 MG CAPS Take one (1) tablet by mouth three times a day 05/05 AMOXICILLIN 65693187164 No Longer Active Wily Gonzalez DO Active MORPHINE SULFATE ER 100 MG CR-TABS Take one (1) tablet by mouth twice a day MORPHINE SULFATE 65185560405 No Longer Active Wily Gonzalez DO Active MORPHINE SULFATE ER 100 MG [id number] 1 capsule twice daily for chronic pain MORPHINE SULFATE 03488766322 Active Wily Gonzalez DO Active CIALIS 10 MG TABS 1 every 72 hours as needed TADALAFIL 44225841505 No Longer Active Esvin PAULA Active FLONASE 50 MCG/ACT SUSP 2 SPRAY EACH NARE DAILY FLUTICASONE PROPIONATE 51103421878 No Longer Active Esvin PAULA Active CYCLOBENZAPRINE HCL 10 MG TABS Take one (1) tablet by mouth three times a day CYCLOBENZAPRINE HCL 46330996657 Active Lisa Berkowitz Active OPANA ER (CRUSH RESISTANT) 40 MG [id number] Take one (1) tablet by mouth twice a day OXYMORPHONE HCL 59409569041 No Longer Active Esvin PAULA Active PROAIR HFA 108 (90 BASE) MCG/ACT AERS 2 puffs every four hours as needed ALBUTEROL SULFATE 01212790692 No Longer Active Esvin PAULA Active CLEARLAX POWD 17gm q day prn constipation POLYETHYLENE GLYCOL 3350 08424742076 Active Wily Gonzalez DO Active MORPHINE SULFATE ER 100 MG [id number] Take one (1) tablet by mouth twice a day MORPHINE SULFATE 84970847512 No Longer Active Esvin PAULA Active FLEXERIL 10 MG TAB 1 tablet by mouth 3 times daily as needed CYCLOBENZAPRINE HCL 79447609644 No Longer Active Esvin PAULA Active CELEBREX 200 MG CAPS 1 tablet by mouth twice daily with meals CELECOXIB 40594274676 No Longer Active Esvin PAULA Active NEXIUM 40 MG CPDR 1 cap daily ESOMEPRAZOLE MAGNESIUM 89355842218 No Longer Active Esvin PAULA Active MOBIC 15 MG TABS 1 tab daily MELOXICAM 69403865387 No Longer Active Esvin PAULA Active LISINOPRIL 20 MG TABS Take 1 tablet by mouth daily LISINOPRIL 41676825820 No Longer Active Esvin PAULA Active DICLOFENAC SODIUM 50 MG TBEC 1 tablet by mouth four times daily DICLOFENAC SODIUM 75493753408 No Longer Active Paula Cooney RN Active VERAMYST 27.5 MCG/SPRAY SUSP 2 spray each nare daily FLUTICASONE FUROATE 80668675488 No Longer Active Megan Vargas RN Active ENDOCET 10-325 MG TABS Take one (1) tablet by mouth three times a day OXYCODONE-ACETAMINOPHEN 72904827547 Active Wily Gonzalez DO Active ALPRAZOLAM 2 MG TABS Take one (1) tablet by mouth three times a day ALPRAZOLAM 77221356807 Active Wily Gonzalez DO Active NEXIUM 40 MG CPDR 1 cap by mouth daily ESOMEPRAZOLE MAGNESIUM 21890428690 No Longer Active Esvin PAULA Active ALPRAZOLAM 2 MG TABS 1 tablet by mouth three times daily as needed ALPRAZOLAM 07626878447 No Longer Active Esvin PAULA Active HYDROXYZINE HCL 25 MG TAB take 1 every 4-6 hours as needed 07/01 HYDROXYZINE HCL 76323813017 No Longer Active Esvin PAULA Active ENDOCET 10-325 MG TABS 1 by mouth twice a day OXYCODONE-ACETAMINOPHEN 48246495344 No Longer Active Esvin PAULA Active MS CONTIN 100 MG [id number] 1 by mouth twice a day MORPHINE SULFATE 22459215194 No Longer Active Esvin PAULA Active SUDAFED 30 MG TAB 1-2 every 4-6 hours as needed PSEUDOEPHEDRINE HCL 30183613356 Active Marylou Melissa RPT,RMA Active ALPRAZOLAM 2 MG TABS 1 tablet by mouth three times daily as needed ALPRAZOLAM 2 MG TABS 556325 ALPRAZOLAM Inactive AMOXICILLIN 500 MG CAPS Take one (1) tablet by mouth three times a day 05/05 AMOXICILLIN 500 MG CAPS 319291 AMOXICILLIN Inactive ANUSOL-HC 25 MG SUPPOSITORY 1 rectally every 12 hours for irritation ANUSOL-HC 25 MG SUPPOSITORY 2082829 HYDROCORTISONE NAEL (RECTAL ) Inactive CLEMASTINE FUMARATE 1.34 MG ORAL TABS 1 tab PO BID CLEMASTINE FUMARATE 1.34 MG ORAL TABS 622693 CLEMASTINE FUMARATE Inactive FLEXERIL 10 MG TAB 1 tablet by mouth 3 times daily as needed FLEXERIL 10 MG TAB CYCLOBENZAPRINE HCL Inactive HYDROXYZINE HCL 25 MG TAB 1 two times a day as needed for anxiety HYDROXYZINE HCL 25 MG TAB 638362 HYDROXYZINE HCL Inactive HYDROXYZINE HCL 25 MG TAB take 1 every 4-6 hours as needed 07/01 HYDROXYZINE HCL 25 MG TAB 680911 HYDROXYZINE HCL Inactive HYDROXYZINE HCL 25 MG TABS Take one (1) tablet by mouth twice a day HYDROXYZINE HCL 25 MG TABS 141504 HYDROXYZINE HCL Inactive LISINOPRIL 20 MG TABS Take 1 tablet by mouth daily LISINOPRIL 20 MG TABS 434443 LISINOPRIL Inactive NYSTATIN 628090 UNIT/GM CREA apply to rash TID PRN NYSTATIN 542484 UNIT/GM CREA 320107 NYSTATIN Inactive DICLOFENAC SODIUM 50 MG TBEC 1 tablet by mouth four times daily DICLOFENAC SODIUM 50 MG TBEC 614340 DICLOFENAC SODIUM Inactive ZIAC 2.5-6.25 MG TAB 1 tablet every morning for high blood pressure ZIAC 2.5-6.25 MG TAB 484011 BISOPROLOL-HCTZ Inactive ZIAC 2.5-6.25 MG TAB 1 tablet daily for high blood pressure 10/27 ZIAC 2.5-6.25 MG TAB 683759 BISOPROLOL-HCTZ Inactive CELEBREX 200 MG CAPS 1 tablet by mouth twice daily with meals CELEBREX 200 MG CAPS 650568 CELECOXIB Inactive MOBIC 15 MG TABS 1 tab daily MOBIC 15 MG TABS 987613 MELOXICAM Inactive NEXIUM 40 MG CPDR 1 cap daily NEXIUM 40 MG CPDR 476628 ESOMEPRAZOLE MAGNESIUM Inactive NEXIUM 40 MG CPDR 1 cap by mouth daily NEXIUM 40 MG CPDR 251183 ESOMEPRAZOLE MAGNESIUM Inactive FLONASE 50 MCG/ACT SUSP 2 SPRAY EACH NARE DAILY FLONASE 50 MCG/ACT SUSP FLUTICASONE PROPIONATE Inactive POLY-IRON 150 150 MG CAPS 1 tab po bid POLY-IRON 150 150 MG CAPS POLYSACCHARIDE IRON COMPLEX Inactive ENDOCET 10-325 MG TABS 1 by mouth twice a day ENDOCET 10-325 MG TABS 0102425 OXYCODONE-ACETAMINOPHEN Inactive CIALIS 10 MG TABS 1 every 72 hours as needed CIALIS 10 MG TABS TADALAFIL Inactive PROAIR HFA 108 (90 BASE) MCG/ACT AERS 2 puffs every four hours as needed PROAIR HFA 108 (90 BASE) MCG/ACT AERS ALBUTEROL SULFATE Inactive [id number]-MMPY 167-83-8 MG TABS 1 tab po daily [id number]-JQIDPIEZD-PPTI 167-83-8 MG TABS [id number]-PIEW Inactive VERAMYST 27.5 MCG/SPRAY SUSP 2 spray each nare daily VERAMYST 27.5 MCG/SPRAY SUSP FLUTICASONE FUROATE Inactive FLOMAX 0.4 MG CAPS 1 capsule in the evening for night time urination. FLOMAX 0.4 MG CAPS 230439 TAMSULOSIN HCL Inactive MORPHINE SULFATE ER 100 MG CR-TABS Take one (1) tablet by mouth twice a day MORPHINE SULFATE ER 100 MG CR-TABS MORPHINE SULFATE Inactive MS CONTIN 100 MG [id number] 1 by mouth twice a day MS CONTIN 100 MG [id number]-SJQ MORPHINE SULFATE Inactive Advance Directives Directive Description [...] ... - Chemistry sodium, serum 140 mmol/L 868-864 4826/03/25 carbon dioxide, venous blood 31.3 mmol/L 21.0-32.0 potassium, serum 4.0 mmol/L 3.5-5.2 chloride, serum 101 mmol/L 98-107 blood glucose 96 mg/dL 65-110 urea nitrogen, blood 7 mg/dL 7-18 creatinine, serum 0.94 mg/dL 0.55-1.30 alanine aminotransferase (SGPT), serum 23 U/L 12-78 aspartate aminotransferase (SGOT), serum 21 U/L 15-37 calcium, serum 8.9 mg/dL 8.5-10.1 bilirubin, serum, total 0.30 mg/dL 0.00-1.00 cholesterol, serum 169 mg/dL 116-684 8201/03/25 triglyceride, serum, fasting 143 mg/dL 30-200 HDL [...] 5.0-8.5 Encounters Code Encounter Date Provider Facility CPT-14389 Level 3 Est. Patient 09:51:37 MAKE UP ARTIST Wily Gonzalez [facility] CPT-39142 Level 3 Est. Patient 11:07:48 CDT Wily Gonzalez [facility] CPT-15127 Level 3 Est. Patient 11:24:24 CDT Wily Gonzalez [facility] CPT-37309 Level 3 Est. Patient 15:19:54 MAKE UP ARTIST Wily Gonzalez [facility] CPT-93342 Level 3 Est. Patient 10:04:45 CDT Wily Gonzalez [facility] CPT-14613 Level 3 Est. Patient 13:04:06 CDT Wily Gonzalez [facility] CPT-52567 Level 3 Est. Patient 12:23:04 CDT Wily Gonzalez [facility] CPT-24762 Level 3 Est. Patient 15:43:10 MAKE UP ARTIST Wily Gonzalez [facility] CPT-90740 Level 3 Est. Patient 16:10:54 CDT Wily Gonzalez [facility] CPT-58288 Level 3 Est. Patient 19:50:51 CDT Wily Gonzalez [facility] CPT-52764 Level 3 Est. Patient 12:02:30 MAKE UP ARTIST Wily Gonzalez [facility] CPT-27508 Level 3 Est. Patient 12:03:11 MAKE UP ARTIST Wily Gonzalez [facility] CPT-17827 Level 3 Est. Patient 12:01:41 MAKE UP ARTIST Wily Gonzalez [facility] CPT-98306 Level 3 Est. Patient 11:51:24 MAKE UP ARTIST Wily Gonzalez [facility] CPT-60162 Level 3 Est. Patient 11:58:20 MAKE UP ARTIST Wily Gonzalez [facility] CPT-87170 Level 3 Est. Patient 08:31:36 MAKE UP ARTIST Wily Gonzalez [facility] CPT-47026 Level 3 Est. Patient 21:57:36 CDT Wily Gonzalez [facility] CPT-09378 Level 3 Est. Patient 10:49:58 CDT Esvin [facility] CPT-44870 Level 3 Est. Patient 11:22:52 CDT Esvin [facility] CPT-44221 Level 3 Est. Patient 13:49:41 CDT Esvin [facility] CPT-56213 Level 3 Est. Patient 11:54:53 CDT Esvin Storden PA [facility] CPT-73193 Level 3 Est. Patient 09:07:11 CDT Esvin PAULA [facility] CPT-63488 Level 3 Est. Patient 13:52:47 CDT Esvin PAULA [facility] CPT-12195 Level 3 Est. Patient 11:26:46 CDT Esvin PAULA [facility] CPT-14267 Level 3 Est. Patient 10:25:00 MAKE UP ARTIST Esvin PAULA [facility] CPT-92917 Level 3 Est. Patient 11:39:11 MAKE UP ARTIST Esvin PAULA [facility] CPT-40855 Level 3 Est. Patient 13:24:24 MAKE UP ARTIST Esvin PAULA [facility] CPT-77081 Level 3 Est. Patient 10:26:13 MAKE UP ARTIST Esvin PAULA [facility] CPT-36816 Level 3 Est. Patient 10:21:21 CDT Esvin PAULA [facility] CPT-41196 Level 3 Est. Patient 10:26:30 CDT Esvin PAULA [facility] CPT-85727 Level 3 Est. Patient 09:16:37 CDT Esvin PAULA [facility] CPT-02873 Level 3 Est. Patient 09:06:58 CDT Esvin PAULA [facility] CPT-20134 Level 3 Est. Patient 10:05:29 CDT Esvin PAULA [facility] CPT-78662 Level 3 Est. Patient 10:38:45 CDT Esvin PAULA [facility] CPT-82627 Level 3 Est. Patient 10:09:45 CDT Esvin PAULA [facility] CPT-81043 Level 3 Est. Patient 09:26:37 CDT Esvin [facility] CPT-70154 Level 3 Est. Patient 10:34:42 MAKE UP ARTIST Esvin [facility] CPT-41842 Level 3 Est. Patient 10:45:47 MAKE UP ARTIST Esvin Hudson [facility] CPT-82256 Level 3 Est. Patient 10:45:22 MAKE UP ARTIST Esvin [facility] CPT-32387 Level 3 Est. Patient 14:18:30 MAKE UP ARTIST Esvin [facility] CPT-68386 Level 3 Est. Patient 13:53:29 MAKE UP ARTIST Esvin Storden [facility] CPT-74288 Level 3 Est. Patient 10:34:11 CDT Esvin [facility] Procedures Code Procedure Name Date Entry Date Standard Description CPT-88176 Bone Density - XRAY USE ONLY 11:29:32 CDT CPT-93746 LS spine AP and Lat - XRAY USE ONLY 10:07:43 MAKE UP ARTIST 10/26 CPT-80501 Venipuncture Draw Fee 09:51:16 MAKE UP ARTIST CPT-38330 Smoking Cessation counseling 09:39:47 MAKE UP ARTIST CPT-G0438 Initial Annual Wellness Exam 09:37:28 MAKE UP ARTIST CPT-88581 Venipuncture Draw Fee 09:26:55 CDT CPT-52613 Venipuncture Draw Fee 11:55:52 CDT CPT-49355 Spec Collection and Handling Fee 09:16:37 CDT CPT-75743 Venipuncture Draw Fee 09:16:37 CDT
[2018-02-26 14:37] VITALS: BP 176/98
--- OUTSIDE RECORDS SUMMARY | 2018-02-26 14:37 | XMS REPORT | Clinical Summary ---
Author Author Admin, E Organization [facility] Address Unknown Phone Unavailable Allergies, Adverse [...] Instructions Start Date Stop Date Generic Name [facility] Status Provider Patient Instruction CHANTIX 1 MG TABS 1 twice a day VARENICLINE TARTRATE 69974018854 No Longer Active Wily Gonzalez DO Active RAUL-MAG 500-250 MG ORAL TABS Take one by mouth daily CALCIUM- MAGNESIUM 87008686763 Active Wily Gonzalez DO Active FOSAMAX 70 MG TABS 1 po qweek. Take 30min prior to first food/drink. Avoid lying down x 1 hour. ALENDRONATE SODIUM 90496862331 Active Rose Bang Active CALCIUM 600 MG ORAL TABS 1 po q day CALCIUM 07664829073 Active Rose Bang Active TRIAMCINOLONE ACETONIDE 0.1 % CREA Apply to affected area 3 times daily for up to 2 weeks TRIAMCINOLONE ACETONIDE 81019120122 Active Wily Gonzalez DO Active [id number]-[id number]-NQUQ 167-83-8 MG TABS 1 tab po daily EPOZOBK-GLGVFEFQF-CFTZ 80479107918 No Longer Active Wily Gonzalez DO Active NYSTATIN 034894 UNIT/GM CREA apply to rash TID PRN NYSTATIN 75130539351 No Longer Active Wily Gonzalez DO Active POLY-IRON 150 150 MG CAPS 1 tab po bid POLYSACCHARIDE IRON COMPLEX 53070180434 No Longer Active Wily Gonzalez DO Active FLONASE ALLERGY RELIEF 50 MCG/ACT NASAL SUSP 2 sprays each nostril every day FLUTICASONE PROPIONATE 68699898239 Active Jodi Lucas APRN Active CLEMASTINE FUMARATE 1.34 MG ORAL TABS 1 tab PO BID CLEMASTINE FUMARATE 37487501701 No Longer Active Wily Gonzalez DO Active FLOMAX 0.4 MG CAPS 1 capsule in the evening for night time urination. TAMSULOSIN HCL 00787322869 No Longer Active Wily Gonzalez DO Active PROTONIX 40 MG TBEC 1 po daily PANTOPRAZOLE SODIUM 20799279890 Active Agnieszka Yeung Active HYDROXYZINE HCL 25 MG TAB 1 two times a day as needed for anxiety HYDROXYZINE HCL 73052966454 No Longer Active Wily Gonzalez DO Active ANUSOL-HC 25 MG SUPPOSITORY 1 rectally every 12 hours for irritation HYDROCORTISONE NAEL (RECTAL) 42780483915 No Longer Active Wily Gonzalez DO Active HYDROXYZINE HCL 25 MG TABS Take one (1) tablet by mouth twice a day HYDROXYZINE HCL 81383692106 No Longer Active Wily Gonzalez DO Active ZIAC 2.5-6.25 MG TAB 1 tablet daily for high blood pressure 10/27 BISOPROLOL-HCTZ 44294871551 No Longer Active Wily Gonzalez DO Active ZIAC 2.5-6.25 MG TAB 1 tablet every morning for high blood pressure BISOPROLOL-HCTZ 86349652313 No Longer Active Wily Gonzalez DO Active AMOXICILLIN 500 MG CAPS Take one (1) tablet by mouth three times a day 05/05 AMOXICILLIN 98036050351 No Longer Active Wily Gonzalez DO Active MORPHINE SULFATE ER 100 MG CR-TABS Take one (1) tablet by mouth twice a day MORPHINE SULFATE 64762909073 No Longer Active Wily Gonzalez DO Active MORPHINE SULFATE ER 100 MG GI47J-PTH 1 capsule twice daily for chronic pain MORPHINE SULFATE 02030858557 Active Wily Gonzalez DO Active CIALIS 10 MG TABS 1 every 72 hours as needed TADALAFIL 87835390232 No Longer Active Esvin PAULA Active FLONASE 50 MCG/ACT SUSP 2 SPRAY EACH NARE DAILY FLUTICASONE PROPIONATE 83779685355 No Longer Active Esvin PAULA Active CYCLOBENZAPRINE HCL 10 MG TABS Take one (1) tablet by mouth three times a day CYCLOBENZAPRINE HCL 81017975636 Active Lisa Berkowitz Active OPANA ER (CRUSH RESISTANT) 40 MG [id number]-[id number] Take one (1) tablet by mouth twice a day OXYMORPHONE HCL 67192094386 No Longer Active Esvin PAULA Active PROAIR HFA 108 (90 BASE) MCG/ACT AERS 2 puffs every four hours as needed ALBUTEROL SULFATE 54486071896 No Longer Active Esvin PAULA Active CLEARLAX POWD 17gm q day prn constipation POLYETHYLENE GLYCOL 3350 96559102861 Active Wily Gonzalez DO Active MORPHINE SULFATE ER 100 MG HU09I-VLZ Take one (1) tablet by mouth twice a day MORPHINE SULFATE 20693428861 No Longer Active Esvin PAULA Active FLEXERIL 10 MG TAB 1 tablet by mouth 3 times daily as needed CYCLOBENZAPRINE HCL 87875038112 No Longer Active Esvin PAULA Active CELEBREX 200 MG CAPS 1 tablet by mouth twice daily with meals CELECOXIB 08530895233 No Longer Active Esvin PAULA Active NEXIUM 40 MG CPDR 1 cap daily ESOMEPRAZOLE MAGNESIUM 88479637379 No Longer Active Esvin PAULA Active MOBIC 15 MG TABS 1 tab daily MELOXICAM 15815159880 No Longer Active Esvin PAULA Active LISINOPRIL 20 MG TABS Take 1 tablet by mouth daily LISINOPRIL 55379661865 No Longer Active Esvin PAULA Active DICLOFENAC SODIUM 50 MG TBEC 1 tablet by mouth four times daily DICLOFENAC SODIUM 74753833023 No Longer Active Paula Cooney RN Active VERAMYST 27.5 MCG/SPRAY SUSP 2 spray each nare daily FLUTICASONE FUROATE 12749639021 No Longer Active Megan Vargas RN Active ENDOCET 10-325 MG TABS Take one (1) tablet by mouth three times a day OXYCODONE-ACETAMINOPHEN 63045018430 Active Wily Gonzalez DO Active ALPRAZOLAM 2 MG TABS Take one (1) tablet by mouth three times a day ALPRAZOLAM 13195897215 Active Lisa Berkowitz Active NEXIUM 40 MG CPDR 1 cap by mouth daily ESOMEPRAZOLE MAGNESIUM 06524792104 No Longer Active Esvin PAULA Active ALPRAZOLAM 2 MG TABS 1 tablet by mouth three times daily as needed ALPRAZOLAM 22453638313 No Longer Active Esvin PAULA Active HYDROXYZINE HCL 25 MG TAB take 1 every 4-6 hours as needed 07/01 HYDROXYZINE HCL 10334458399 No Longer Active Esvin PAULA Active ENDOCET 10-325 MG TABS 1 by mouth twice a day OXYCODONE-ACETAMINOPHEN 23215079987 No Longer Active Esvin PAULA Active MS CONTIN 100 MG [id number]-[id number] 1 by mouth twice a day MORPHINE SULFATE 37996994519 No Longer Active Esvin PAULA Active SUDAFED 30 MG TAB 1-2 every 4-6 hours as needed PSEUDOEPHEDRINE HCL 61621186105 Active Rose Bang Active VERAMYST 27.5 MCG/SPRAY SUSP 2 spray each nare daily VERAMYST 27.5 MCG/SPRAY SUSP FLUTICASONE FUROATE Inactive DICLOFENAC SODIUM 50 MG TBEC 1 tablet by mouth four times daily DICLOFENAC SODIUM 50 MG TBEC 326102 DICLOFENAC SODIUM Inactive LISINOPRIL 20 MG TABS Take 1 tablet by mouth daily LISINOPRIL 20 MG TABS 821371 LISINOPRIL Inactive MOBIC 15 MG TABS 1 tab daily MOBIC 15 MG TABS 430689 MELOXICAM Inactive NEXIUM 40 MG CPDR 1 cap daily NEXIUM 40 MG CPDR 231149 ESOMEPRAZOLE MAGNESIUM Inactive CELEBREX 200 MG CAPS 1 tablet by mouth twice daily with meals CELEBREX 200 MG CAPS 198641 CELECOXIB Inactive FLEXERIL 10 MG TAB 1 tablet by mouth 3 times daily as needed FLEXERIL 10 MG TAB CYCLOBENZAPRINE HCL Inactive PROAIR HFA 108 (90 BASE) MCG/ACT AERS 2 puffs every four hours as needed PROAIR HFA 108 (90 BASE) MCG/ACT AERS ALBUTEROL SULFATE Inactive FLONASE 50 MCG/ACT SUSP 2 SPRAY EACH NARE DAILY FLONASE 50 MCG/ACT SUSP 7907716 FLUTICASONE PROPIONATE Inactive CIALIS 10 MG TABS 1 every 72 hours as needed CIALIS 10 MG TABS TADALAFIL Inactive MORPHINE SULFATE ER 100 MG CR-TABS Take one (1) tablet by mouth twice a day MORPHINE SULFATE ER 100 MG CR-TABS MORPHINE SULFATE Inactive AMOXICILLIN 500 MG CAPS Take one (1) tablet by mouth three times a day 05/05 AMOXICILLIN 500 MG CAPS 550776 AMOXICILLIN Inactive ZIAC 2.5-6.25 MG TAB 1 tablet every morning for high blood pressure ZIAC 2.5-6.25 MG TAB 608580 BISOPROLOL-HCTZ Inactive ZIAC 2.5-6.25 MG TAB 1 tablet daily for high blood pressure 10/27 ZIAC 2.5-6.25 MG TAB 401326 BISOPROLOL-HCTZ Inactive HYDROXYZINE HCL 25 MG TABS Take one (1) tablet by mouth twice a day HYDROXYZINE HCL 25 MG TABS 209181 HYDROXYZINE HCL Inactive ANUSOL-HC 25 MG SUPPOSITORY 1 rectally every 12 hours for irritation ANUSOL-HC 25 MG SUPPOSITORY 3932962 HYDROCORTISONE NAEL (RECTAL ) Inactive HYDROXYZINE HCL 25 MG TAB 1 two times a day as needed for anxiety HYDROXYZINE HCL 25 MG TAB 147362 HYDROXYZINE HCL Inactive FLOMAX 0.4 MG CAPS 1 capsule in the evening for night time urination. FLOMAX 0.4 MG CAPS 900023 TAMSULOSIN HCL Inactive CLEMASTINE FUMARATE 1.34 MG ORAL TABS 1 tab PO BID CLEMASTINE FUMARATE 1.34 MG ORAL TABS 929220 CLEMASTINE FUMARATE Inactive POLY-IRON 150 150 MG CAPS 1 tab po bid POLY-IRON 150 150 MG CAPS POLYSACCHARIDE IRON COMPLEX Inactive NYSTATIN 958611 UNIT/GM CREA apply to rash TID PRN NYSTATIN 602127 UNIT/GM CREA 122583 NYSTATIN Inactive XSTIIHA-BZBTJNBYE-YDYT 167-83-8 MG TABS 1 tab po daily GCNWDMV-DWDNZAALK-LHFM 167-83-8 MG TABS YISIOME-JQUCDJRWS-ITDR Inactive CHANTIX 1 MG TABS 1 twice a day CHANTIX 1 MG TABS VARENICLINE TARTRATE Inactive MS CONTIN 100 MG FQ10M-ZXP 1 by mouth twice a day MS CONTIN 100 MG UV23C-QEH MORPHINE SULFATE Inactive ENDOCET 10-325 MG TABS 1 by mouth twice a day ENDOCET 10-325 MG TABS 9588043 OXYCODONE-ACETAMINOPHEN Inactive HYDROXYZINE HCL 25 MG TAB take 1 every 4-6 hours as needed 07/01 HYDROXYZINE HCL 25 MG TAB 600467 HYDROXYZINE HCL Inactive ALPRAZOLAM 2 MG TABS 1 tablet by mouth three times daily as needed ALPRAZOLAM 2 MG TABS 109303 ALPRAZOLAM Inactive NEXIUM 40 MG CPDR 1 cap by mouth daily NEXIUM 40 MG CPDR 648550 ESOMEPRAZOLE MAGNESIUM Inactive Advance Directives Directive Description [...] temperature weight E&M 181.5 [lb_av] Weight Measured blood pressure, diastolic 84 mm[Hg] BP stoddard blood pressure, systolic 118 mm[Hg] BP sys pulse rate E&M 100 /min Heart rate temperature E&M 97.8 [degF] Body temperature weight E&M 171.5 [lb_av] Weight Measured Encounters Code Encounter Date Provider Facility CPT-06545 Level 4 Est. Patient 10:10:03 CDT Wily Zhang [facility] CPT-52118 Level 3 Est. Patient 14:25:57 CDT Wily Zhang [facility] CPT-96503 Level 3 Est. Patient 09:51:37 SOLE RUFFER Wily Zhang [facility] CPT-07860 Level 3 Est. Patient 11:07:48 CDT Wily Zhang [facility] CPT-79914 Level 3 Est. Patient 11:24:24 CDT Wily Zhang [facility] CPT-84791 Level 3 Est. Patient 15:19:54 SOLE RUFFER Wily Gonzalez [facility] CPT-66262 Level 3 Est. Patient 10:04:45 CDT Wily Zhang [facility] CPT-80168 Level 3 Est. Patient 13:04:06 CDT Wily Zhang [facility] CPT-43038 Level 3 Est. Patient 12:23:04 CDT Wily Zhang [facility] CPT-48100 Level 3 Est. Patient 15:43:10 SOLE RUFFER Wily Gonzalez [facility] CPT-34362 Level 3 Est. Patient 16:10:54 CDT Wily Gonzalez [facility] CPT-19356 Level 3 Est. Patient 19:50:51 CDT Wily Gonzalez [facility] CPT-48352 Level 3 Est. Patient 12:02:30 SOLE RUFFER Wily Gonzalez [facility] CPT-48296 Level 3 Est. Patient 12:03:11 SOLE RUFFER Wily Gonzalez [facility] CPT-32800 Level 3 Est. Patient 12:01:41 SOLE RUFFER Wily Gonzalez [facility] CPT-90490 Level 3 Est. Patient 11:51:24 SOLE RUFFER Wily Gonzalez [facility] CPT-74534 Level 3 Est. Patient 11:58:20 SOLE RUFFER Wily Gonzalez [facility] CPT-27011 Level 3 Est. Patient 08:31:36 SOLE RUFFER Wily Gonzalez [facility] CPT-02696 Level 3 Est. Patient 21:57:36 CDT Wily Gonzalez [facility] CPT-10595 Level 3 Est. Patient 10:49:58 CDT Esvin Hudson [facility] CPT-47919 Level 3 Est. Patient 11:22:52 CDT Esvin Hudson [facility] CPT-35001 Level 3 Est. Patient 13:49:41 CDT Esvin PAULA [facility] CPT-37517 Level 3 Est. Patient 11:54:53 CDT Esvin Hudson [facility] CPT-18532 Level 3 Est. Patient 09:07:11 CDT Esvin Hudson [facility] CPT-26251 Level 3 Est. Patient 13:52:47 CDT Esvin PAULA [facility] CPT-19197 Level 3 Est. Patient 11:26:46 CDT Esvin Hudson [facility] CPT-87407 Level 3 Est. Patient 10:25:00 SOLE RUFFER Esvin Hudson [facility] CPT-18534 Level 3 Est. Patient 11:39:11 SOLE RUFFER Esvin Hudson [facility] CPT-63364 Level 3 Est. Patient 13:24:24 SOLE RUFFER Esvin PAULA [facility] CPT-98214 Level 3 Est. Patient 10:26:13 SOLE RUFFER Esvin Hudson [facility] CPT-65225 Level 3 Est. Patient 10:21:21 CDT Esvin Hudson [facility] CPT-44119 Level 3 Est. Patient 10:26:30 CDT Esvin Hudson [facility] CPT-32126 Level 3 Est. Patient 09:16:37 CDT Esvin Hudson [facility] CPT-88705 Level 3 Est. Patient 09:06:58 CDT Esvin Hudson [facility] CPT-42921 Level 3 Est. Patient 10:05:29 CDT Esvin Hudson [facility] CPT-12526 Level 3 Est. Patient 10:38:45 CDT Esvin PAULA [facility] CPT-34801 Level 3 Est. Patient 10:09:45 CDT Esvin Tristan [facility] CPT-66672 Level 3 Est. Patient 09:26:37 CDT Esvin Tristan [facility] CPT-09212 Level 3 Est. Patient 10:34:42 SOLE RUFFER Esvin Tristan [facility] CPT-70854 Level 3 Est. Patient 10:45:47 SOLE RUFFER Esvin Hudson [facility] CPT-89486 Level 3 Est. Patient 10:45:22 SOLE RUFFER Esvin Hudson [facility] CPT-48965 Level 3 Est. Patient 14:18:30 SOLE RUFFER Esvin Tristan [facility] CPT-93151 Level 3 Est. Patient 13:53:29 SOLE RUFFER Esvin Conejos [facility] CPT-98782 Level 3 Est. Patient 10:34:11 CDT [facility] Procedures Code Procedure Name Date Entry Date Standard Description CPT-42854 Smoking Cessation counseling 10:10:03 CDT CPT-58805 Smoking Cessation counseling 14:25:57 CDT CPT-53589 Bone Density - XRAY USE ONLY 11:29:32 CDT CPT-46203 LS spine AP and Lat - XRAY USE ONLY 10:07:43 SOLE RUFFER 10/26 CPT-87270 Venipuncture Draw Fee 09:51:16 SOLE RUFFER CPT-01671 Smoking Cessation counseling 09:39:47 SOLE RUFFER CPT-G0438 Initial Annual Wellness Exam 09:37:28 SOLE RUFFER CPT-92592 Venipuncture Draw Fee 09:26:55 CDT CPT-98625 Venipuncture Draw Fee 11:55:52 CDT CPT-13230 Spec Collection and Handling Fee 09:16:37 CDT CPT-76255 Venipuncture Draw Fee 09:16:37 CDT
--- OUTSIDE RECORDS SUMMARY | 2018-02-26 14:38 | XMS REPORT | Clinical Summary ---
Author Author Admin, E Organization [facility] Address Unknown Phone Unavailable Allergies, Adverse Reactions, [...] Active Wily Gonzalez DO Unspecified essential hypertension HYPERTENSION ICD-401.9 Inactive Wily Gonzalez DO ANKLE PAIN ICD-719.47 Inactive Wily Gonzalez DO 05/08 FH DIABETES ICD-V18.0 Inactive Wily Gonzalez DO ANEMIA ICD-285.9 Inactive Wiyl Gonzalez DO Tinea corporis ICD-110.5 Inactive Wily Gonzalez DO Tinea corporis ICD-110.5 Inactive Wily Gonzalez DO Hemorrhoids ICD-455.6 Inactive Wily Gonzalez DO 05/08 Nocturia ICD-788.43 Inactive Wily Gonzalez DO U T I ICD-599.0 Inactive Wily Gonzalez DO U R I ICD-465.9 Inactive Wily Gonzalez DO Medication List Medication Instructions Start Date Stop Date Generic Name NDC Status Provider Patient Instruction METOPROLOL TARTRATE 25 MG ORAL TABLET 1/2 tab by mouth twice dialy for blood pressure METOPROLOL TARTRATE 51074550357 Active Wily Gonzalez DO Active CHANTIX 1 MG ORAL TABLET 1 twice a day VARENICLINE TARTRATE 35116385480 No Longer Active Wily Gonzalez DO Active RAUL-MAG 500-250 MG ORAL TABLET Take one by mouth daily CALCIUM -MAGNESIUM 26569715735 Active Wily Gonzalez DO Active FOSAMAX 70 MG ORAL TABLET 1 po qweek. Take 30min prior to first food/drink. Avoid lying down x 1 hour. ALENDRONATE SODIUM 27183577435 Active Laurie Latham LPN Active CALCIUM 600 MG ORAL TABLET 1 po q day CALCIUM 46862710503 Active Rose Bang Active TRIAMCINOLONE ACETONIDE 0.1 % EXTERNAL CREAM Apply to affected area 3 times daily for up to 2 weeks TRIAMCINOLONE ACETONIDE 57792594231 Active Wily Gonzalez DO Active [id number] 167-83-8 MG ORAL TABLET 1 tab po daily [id number]-[id number]-[id number] 11467576134 No Longer Active Wily Gonzalez DO Active NYSTATIN 275914 UNIT/GM EXTERNAL CREAM apply to rash TID PRN 2015 NYSTATIN 93147761949 No Longer Active Wily Gonzalez DO Active POLY-IRON 150 150 MG ORAL CAPSULE 1 tab po bid POLYSACCHARIDE IRON COMPLEX 04383831896 No Longer Active Wily Gonzalez DO Active FLONASE ALLERGY RELIEF 50 MCG/ACT NASAL SUSPENSION 2 sprays each nostril every day FLUTICASONE PROPIONATE 76640481400 Active Wily Gonzalez DO Active CLEMASTINE FUMARATE 1.34 MG ORAL TABLET 1 tab PO BID CLEMASTINE FUMARATE 29700066530 No Longer Active Wily Gonzalez DO Active FLOMAX 0.4 MG ORAL CAPSULE 1 capsule in the evening for night time urination. TAMSULOSIN HCL 10240935226 No Longer Active Wily Gonzalez DO Active PROTONIX 40 MG ORAL TABLET DELAYED RELEASE 1 po daily PANTOPRAZOLE SODIUM 50506939938 Active Rose Bang Active HYDROXYZINE HCL 25 MG ORAL TABLET 1 two times a day as needed for anxiety HYDROXYZINE HCL 91335122538 No Longer Active Wily Gonzalez DO Active ANUSOL-HC 25 MG RECTAL SUPPOSITORY 1 rectally every 12 hours for irritation HYDROCORTISONE NAEL (RECTAL) 55617624187 No Longer Active Wily Gonzalez DO Active HYDROXYZINE HCL 25 MG ORAL TABLET Take one (1) tablet by mouth twice a day HYDROXYZINE HCL 19724130176 No Longer Active Wily Gonzalez DO Active ZIAC 2.5-6.25 MG ORAL TABLET 1 tablet daily for high blood pressure BISOPROLOL-HCTZ 53179106819 No Longer Active Wily Gonzalez DO Active ZIAC 2.5-6.25 MG ORAL TABLET 1 tablet every morning for high blood pressure BISOPROLOL-HCTZ 72726001861 No Longer Active Wily Gonzalez DO Active AMOXICILLIN 500 MG ORAL CAPSULE Take one (1) tablet by mouth three times a day AMOXICILLIN 41249197435 No Longer Active Wily Gonzalez DO Active MORPHINE SULFATE ER 100 MG ORAL TABLET EXTENDED RELEASE Take one (1) tablet by mouth twice a day MORPHINE SULFATE 58198441100 No Longer Active Wily Gonzalez DO Active MORPHINE SULFATE ER 100 MG ORAL CAPSULE EXTENDED RELEASE 24 HOUR 1 capsule twice daily for chronic pain MORPHINE SULFATE 44564133204 Active Wily Gonzalez DO Active CIALIS 10 MG ORAL TABLET 1 every 72 hours as needed TADALAFIL 53732413754 No Longer Active Esvin PAULA Active FLONASE 50 MCG/ACT NASAL SUSPENSION 2 SPRAY EACH NARE DAILY 05/08 FLUTICASONE PROPIONATE 93358884333 No Longer Active Esvin PAULA Active CYCLOBENZAPRINE HCL 10 MG ORAL TABLET Take one (1) tablet by mouth three times a day CYCLOBENZAPRINE HCL 34273919458 Active Rose Bang Active OPANA ER 40 MG ORAL TABLET ER 12 HOUR ABUSE-DETERRENT Take one (1) tablet by mouth twice a day OXYMORPHONE HCL 76088411677 No Longer Active Esvin PAULA Active PROAIR HFA 108 (90 Base) MCG/ACT INHALATION AEROSOL SOLUTION 2 puffs every four hours as needed ALBUTEROL SULFATE 42435673483 No Longer Active Esvin PAULA Active CLEARLAX ORAL POWDER 17gm q day prn constipation POLYETHYLENE GLYCOL 3350 48249095788 Active Wily Gonzalez DO Active MORPHINE SULFATE ER 100 MG ORAL CAPSULE EXTENDED RELEASE 24 HOUR Take one (1) tablet by mouth twice a day MORPHINE SULFATE 43185266878 No Longer Active Esvin PAULA Active FLEXERIL 10 MG TAB 1 tablet by mouth 3 times daily as needed CYCLOBENZAPRINE HCL 38406975531 No Longer Active Esvin PAULA Active CELEBREX 200 MG ORAL CAPSULE 1 tablet by mouth twice daily with meals 2012 CELECOXIB 52573724993 No Longer Active Esvin PAULA Active NEXIUM 40 MG ORAL CAPSULE DELAYED RELEASE 1 cap daily ESOMEPRAZOLE MAGNESIUM 76434493252 No Longer Active Esvin PUALA Active MOBIC 15 MG ORAL TABLET 1 tab daily MELOXICAM 00518934302 No Longer Active Esvin PAULA Active LISINOPRIL 20 MG ORAL TABLET Take 1 tablet by mouth daily LISINOPRIL 11076501917 No Longer Active Esvin PAULA Active DICLOFENAC SODIUM 50 MG ORAL TABLET DELAYED RELEASE 1 tablet by mouth four times daily DICLOFENAC SODIUM 48068395616 No Longer Active Paula Cooney RN Active VERAMYST 27.5 MCG/SPRAY NASAL SUSPENSION 2 spray each nare daily FLUTICASONE FUROATE 68484956870 No Longer Active Megan Vargas RN Active ENDOCET 10-325 MG ORAL TABLET Take one (1) tablet by mouth three times a day OXYCODONE-ACETAMINOPHEN 72834418719 Active Wily Gonzalez DO Active ALPRAZOLAM 2 MG ORAL TABLET Take one (1) tablet by mouth three times a day ALPRAZOLAM 71555229026 Active Wily Gonzalez DO Active NEXIUM 40 MG ORAL CAPSULE DELAYED RELEASE 1 cap by mouth daily ESOMEPRAZOLE MAGNESIUM 41664881150 No Longer Active Esvin PAULA Active ALPRAZOLAM 2 MG ORAL TABLET 1 tablet by mouth three times daily as needed ALPRAZOLAM 94846779899 No Longer Active Esvin PAULA Active HYDROXYZINE HCL 25 MG ORAL TABLET take 1 every 4-6 hours as needed HYDROXYZINE HCL 64075750336 No Longer Active Esvin PAULA Active ENDOCET 10-325 MG ORAL TABLET 1 by mouth twice a day OXYCODONE-ACETAMINOPHEN 94391326871 No Longer Active Esvin PAULA Active MS CONTIN 100 MG ORAL TABLET EXTENDED RELEASE 1 by mouth twice a day MORPHINE SULFATE 32759300418 No Longer Active Esvin PAULA Active SUDAFED 30 MG ORAL TABLET 1-2 every 4-6 hours as needed PSEUDOEPHEDRINE HCL 99056512910 Active Rose Bang Active VERAMYST 27.5 MCG/SPRAY NASAL SUSPENSION 2 spray each nare daily VERAMYST 27.5 MCG/SPRAY NASAL SUSPENSION FLUTICASONE FUROATE Inactive DICLOFENAC SODIUM 50 MG ORAL TABLET DELAYED RELEASE 1 tablet by mouth four times daily DICLOFENAC SODIUM 50 MG ORAL TABLET DELAYED RELEASE 197470 DICLOFENAC SODIUM Inactive LISINOPRIL 20 MG ORAL TABLET Take 1 tablet by mouth daily LISINOPRIL 20 MG ORAL TABLET 152831 LISINOPRIL Inactive MOBIC 15 MG ORAL TABLET 1 tab daily MOBIC 15 MG ORAL TABLET 653887 MELOXICAM Inactive NEXIUM 40 MG ORAL CAPSULE DELAYED RELEASE 1 cap daily NEXIUM 40 MG ORAL CAPSULE DELAYED RELEASE 801198 ESOMEPRAZOLE MAGNESIUM Inactive CELEBREX 200 MG ORAL CAPSULE 1 tablet by mouth twice daily with meals 2012 CELEBREX 200 MG ORAL CAPSULE 481776 CELECOXIB Inactive FLEXERIL 10 MG TAB 1 [...] DAILY 05/08 FLONASE 50 MCG/ACT NASAL SUSPENSION 9674963 FLUTICASONE PROPIONATE Inactive CIALIS 10 MG ORAL [...] a day AMOXICILLIN 500 MG ORAL CAPSULE 524174 AMOXICILLIN Inactive ZIAC 2.5-6.25 MG ORAL TABLET 1 tablet every morning for high blood pressure ZIAC 2.5-6.25 MG ORAL TABLET 600858 BISOPROLOL-HCTZ Inactive ZIAC 2.5-6.25 MG ORAL TABLET 1 tablet daily for high blood pressure ZIAC 2.5-6.25 MG ORAL TABLET 109513 BISOPROLOL-HCTZ Inactive HYDROXYZINE HCL 25 MG ORAL TABLET Take one (1) tablet by mouth twice a day HYDROXYZINE HCL 25 MG ORAL TABLET 612620 HYDROXYZINE HCL Inactive ANUSOL-HC 25 MG RECTAL SUPPOSITORY 1 rectally every 12 hours for irritation ANUSOL-HC 25 MG RECTAL SUPPOSITORY 8426789 HYDROCORTISONE NAEL (RECTAL) Inactive HYDROXYZINE HCL 25 MG ORAL TABLET 1 two times a day as needed for anxiety HYDROXYZINE HCL 25 MG ORAL TABLET 159119 HYDROXYZINE HCL Inactive FLOMAX 0.4 MG ORAL CAPSULE 1 capsule in the evening for night time urination. FLOMAX 0.4 MG ORAL CAPSULE 532775 TAMSULOSIN HCL Inactive CLEMASTINE FUMARATE 1.34 MG ORAL TABLET 1 tab PO BID CLEMASTINE FUMARATE 1.34 MG ORAL TABLET 174010 CLEMASTINE FUMARATE Inactive POLY-IRON 150 150 MG ORAL CAPSULE 1 tab po bid POLY-IRON 150 150 MG ORAL CAPSULE 098022 POLYSACCHARIDE IRON COMPLEX Inactive NYSTATIN 711274 UNIT/GM EXTERNAL CREAM apply to rash TID PRN 2015 NYSTATIN 857823 UNIT/GM EXTERNAL CREAM 032725 NYSTATIN Inactive GWZMVRV-REIWQLKBY-HHLC 167-83-8 MG ORAL TABLET 1 tab po daily UUKJDPB-YTBQLWLBH-RLCZ 167-83-8 MG ORAL TABLET 40462702843 CALCIUM -MAGNESIUM-ZINC Inactive CHANTIX 1 MG ORAL TABLET 1 twice a day CHANTIX 1 MG ORAL TABLET VARENICLINE TARTRATE Inactive MS CONTIN 100 MG ORAL TABLET EXTENDED RELEASE 1 by mouth twice a day MS CONTIN 100 MG ORAL TABLET EXTENDED RELEASE MORPHINE SULFATE Inactive ENDOCET 10-325 MG ORAL TABLET 1 by mouth twice a day ENDOCET 10-325 MG ORAL TABLET 8735735 OXYCODONE-ACETAMINOPHEN Inactive HYDROXYZINE HCL 25 MG ORAL TABLET take 1 every 4-6 hours as needed HYDROXYZINE HCL 25 MG ORAL TABLET 282441 HYDROXYZINE HCL Inactive ALPRAZOLAM 2 MG ORAL TABLET 1 tablet by mouth three times daily as needed ALPRAZOLAM 2 MG ORAL TABLET 796203 ALPRAZOLAM Inactive NEXIUM 40 MG ORAL CAPSULE DELAYED RELEASE 1 cap by mouth daily NEXIUM 40 MG ORAL CAPSULE DELAYED RELEASE 673366 ESOMEPRAZOLE MAGNESIUM Inactive Advance Directives Directive Description [...] temperature weight E&M 166.38 [lb_av] Weight Measured Encounters Code Encounter Date Provider Facility CPT-92792 Level 4 Est. Patient 16:18:01 CDT Wily Gonzalez [facility] CPT-21168 Level 4 Est. Patient 16:17:36 CDT Wily Gonzalez [facility] CPT-80564 Level 4 Est. Patient 12:51:46 CDT Wily Gonzalez [facility] CPT-46482 Level 4 Est. Patient 10:10:03 CDT Wily Gonzalez [facility] CPT-09278 Level 3 Est. Patient 14:25:57 CDT Wily Gonzalez [facility] CPT-98415 Level 3 Est. Patient 09:51:37 SECURITY ALARM TECHNICIAN Wily Gonzalez [facility] CPT-48387 Level 3 Est. Patient 11:07:48 CDT Wily Zhang [facility] CPT-26137 Level 3 Est. Patient 11:24:24 CDT Wily Gonzalez [facility] CPT-27712 Level 3 Est. Patient 15:19:54 SECURITY ALARM TECHNICIAN Wily Gonzalez [facility] CPT-59737 Level 3 Est. Patient 10:04:45 CDT Wily Gonzalez [facility] CPT-04223 Level 3 Est. Patient 13:04:06 CDT Wily Gonzalez [facility] CPT-13713 Level 3 Est. Patient 12:23:04 CDT Wily Gonzalez [facility] CPT-42173 Level 3 Est. Patient 15:43:10 SECURITY ALARM TECHNICIAN Wily Gonzalez [facility] CPT-26382 Level 3 Est. Patient 16:10:54 CDT Wily Gonzalez [facility] CPT-56673 Level 3 Est. Patient 19:50:51 CDT Wily Gonzalez [facility] CPT-50130 Level 3 Est. Patient 12:02:30 SECURITY ALARM TECHNICIAN Wily Gonzalez [facility] CPT-00985 Level 3 Est. Patient 12:03:11 SECURITY ALARM TECHNICIAN Wily Gonzalez [facility] CPT-17470 Level 3 Est. Patient 12:01:41 SECURITY ALARM TECHNICIAN Wily Gonzalez [facility] CPT-24205 Level 3 Est. Patient 11:51:24 SECURITY ALARM TECHNICIAN Wily Gonzalez [facility] CPT-53318 Level 3 Est. Patient 11:58:20 SECURITY ALARM TECHNICIAN Wily Gonzalez [facility] CPT-12760 Level 3 Est. Patient 08:31:36 SECURITY ALARM TECHNICIAN Wily Gonzalez [facility] CPT-75480 Level 3 Est. Patient 21:57:36 CDT Wily Gonzalez [facility] CPT-59620 Level 3 Est. Patient 10:49:58 CDT Esvin Hudson [facility] CPT-48091 Level 3 Est. Patient 11:22:52 CDT Esvin PAULA [facility] CPT-08842 Level 3 Est. Patient 13:49:41 CDT Esvin Hudson CH[facility] CPT-75333 Level 3 Est. Patient 11:54:53 CDT Esvin PAULA [facility] CPT-70801 Level 3 Est. Patient 09:07:11 CDT Esvin PAULA [facility] CPT-37288 Level 3 Est. Patient 13:52:47 CDT Esvin PAULA [facility] CPT-13592 Level 3 Est. Patient 11:26:46 CDT Esvin Hudson CHAI [facility] CPT-56069 Level 3 Est. Patient 10:25:00 SECURITY ALARM TECHNICIAN Esvin Hudson CHAI [facility] CPT-37612 Level 3 Est. Patient 11:39:11 SECURITY ALARM TECHNICIAN Esvin PAULA [facility] CPT-57458 Level 3 Est. Patient 13:24:24 SECURITY ALARM TECHNICIAN Esvin Hudson CHAI [facility] CPT-40577 Level 3 Est. Patient 10:26:13 SECURITY ALARM TECHNICIAN Esvin PAULA [facility] CPT-46294 Level 3 Est. Patient 10:21:21 CDT Esvin PAULA [facility] CPT-68438 Level 3 Est. Patient 10:26:30 CDT Esvni PAULA [facility] CPT-13259 Level 3 Est. Patient 09:16:37 CDT Esvin Hudson [facility]-91582 Level 3 Est. Patient 09:06:58 CDT Esvin Tristan CHAI [facility] CPT-99764 Level 3 Est. Patient 10:05:29 CDT Esvin Tristan CHAI [facility] CPT-44756 Level 3 Est. Patient 10:38:45 CDT Esvin Hudson [facility] CPT-34050 Level 3 Est. Patient 10:09:45 CDT Esvin Hudson [facility] CPT-80951 Level 3 Est. Patient 09:26:37 CDT Esvin Hudson [facility] CPT-60642 Level 3 Est. Patient 10:34:42 SECURITY ALARM TECHNICIAN Esvin Hitchins [facility] CPT-94525 Level 3 Est. Patient 10:45:47 SECURITY ALARM TECHNICIAN Esvin Hitchins [facility] CPT-70005 Level 3 Est. Patient 10:45:22 SECURITY ALARM TECHNICIAN Esvin Hudson [facility] CPT-44773 Level 3 Est. Patient 14:18:30 SECURITY ALARM TECHNICIAN Esvin Hudson [facility] CPT-95808 Level 3 Est. Patient 13:53:29 SECURITY ALARM TECHNICIAN Esvin Hudson [facility] CPT-39781 Level 3 Est. Patient 10:34:11 CDT Esvin Hudson [facility] Procedures Code Procedure Name Date Entry Date Standard Description CPT-78254 Smoking Cessation counseling 10:10:03 CDT CPT-70354 Smoking Cessation counseling 14:25:57 CDT CPT-11016 Bone Density - XRAY USE ONLY 11:29:32 CDT CPT-58035 LS spine AP and Lat - XRAY USE ONLY 10:07:43 SECURITY ALARM TECHNICIAN 10/26 CPT-37984 Venipuncture Draw Fee 09:51:16 SECURITY ALARM TECHNICIAN CPT-98976 Smoking Cessation counseling 09:39:47 SECURITY ALARM TECHNICIAN CPT-G0438 Initial Annual Wellness Exam 09:37:28 SECURITY ALARM TECHNICIAN CPT-25326 Venipuncture Draw Fee 09:26:55 CDT CPT-14831 Venipuncture Draw Fee 11:55:52 CDT CPT-72311 Spec Collection and Handling Fee 09:16:37 CDT CPT-68599 Venipuncture Draw Fee 09:16:37 CDT
--- OUTSIDE RECORDS SUMMARY | 2018-02-26 14:39 | XMS REPORT | Clinical Summary ---
Author Author Admin, E Organization [facility] Address Unknown Phone Unavailable Allergies, Adverse Reactions, [...] TABS 1 tab PO BID CLEMASTINE FUMARATE [id number] No Longer Active Wily Gonzalez DO Active FLOMAX 0.4 MG CAPS 1 capsule in the evening for night time urination. TAMSULOSIN HCL 67231020098 No Longer Active Wily Gonzalez DO Active PROTONIX 40 MG TBEC 1 po daily PANTOPRAZOLE SODIUM 26080661241 Active Wily Gonzalez DO Active HYDROXYZINE HCL 25 MG TAB 1 two times a day as needed for anxiety HYDROXYZINE HCL 44280760557 No Longer Active Wily Gonzalez DO Active ANUSOL-HC 25 MG SUPPOSITORY 1 rectally every 12 hours for irritation HYDROCORTISONE NAEL (RECTAL) 83636536587 No Longer Active Wily Gonzalez DO Active HYDROXYZINE HCL 25 MG TABS Take one (1) tablet by mouth twice a day HYDROXYZINE HCL 41804067777 No Longer Active Wily Gonzalez DO Active ZIAC 2.5-6.25 MG TAB 1 tablet daily for high blood pressure 10/27 BISOPROLOL-HCTZ 55809392648 No Longer Active Wily Gonzalez DO Active [id number] 167-83-8 MG TABS 1 tab po daily CALCIUM -MAGNESIUM-ZINC 74359318226 Active Wily Gonzalez DO Active NYSTATIN 039130 UNIT/GM CREA apply to rash TID PRN NYSTATIN 77799330988 Active Wily Gonzalez DO Active ZIAC 2.5-6.25 MG TAB 1 tablet every morning for high blood pressure BISOPROLOL-HCTZ 80416587773 No Longer Active Wily Gonzalez DO Active AMOXICILLIN 500 MG CAPS Take one (1) tablet by mouth three times a day 05/05 AMOXICILLIN 74003138845 No Longer Active Wily Gonzalez DO Active MORPHINE SULFATE ER 100 MG CR-TABS Take one (1) tablet by mouth twice a day MORPHINE SULFATE 39229080795 No Longer Active Wily Gonzalez DO Active MORPHINE SULFATE ER 100 MG [id number] 1 capsule twice daily for chronic pain MORPHINE SULFATE 98832120699 Active Rudy Cheung MD Active FLONASE 50 MCG/ACT SUSP 2 sprays each nare q day FLUTICASONE PROPIONATE 67120365306 Active Rudy Cheung MD Active CIALIS 10 MG TABS 1 every 72 hours as needed TADALAFIL 54785130750 No Longer Active Esvin PAULA Active FLONASE 50 MCG/ACT SUSP 2 SPRAY EACH NARE DAILY FLUTICASONE PROPIONATE 36910889123 No Longer Active Esvin PAULA Active CYCLOBENZAPRINE HCL 10 MG TABS Take one (1) tablet by mouth three times a day CYCLOBENZAPRINE HCL 59667168134 Active Wily Gonzalez DO Active OPANA ER (CRUSH RESISTANT) 40 MG [id number] Take one (1) tablet by mouth twice a day OXYMORPHONE HCL 17511583483 No Longer Active Esvin PAULA Active POLY-IRON 150 150 MG CAPS 1 tab po bid POLYSACCHARIDE IRON COMPLEX 94255926233 Active Esvin PAULA Active PROAIR HFA 108 (90 BASE) MCG/ACT AERS 2 puffs every four hours as needed ALBUTEROL SULFATE 35229404523 No Longer Active Esvin PAULA Active CLEARLAX POWD 17gm q day prn constipation POLYETHYLENE GLYCOL 3350 84337157292 Active Jonas PAULA Active MORPHINE SULFATE ER 100 MG [id number] Take one (1) tablet by mouth twice a day MORPHINE SULFATE 41873561383 No Longer Active Esvin PAULA Active FLEXERIL 10 MG TAB 1 tablet by mouth 3 times daily as needed CYCLOBENZAPRINE HCL 26940809011 No Longer Active Esvin PAULA Active CELEBREX 200 MG CAPS 1 tablet by mouth twice daily with meals CELECOXIB 87930932459 No Longer Active Esvin PAULA Active NEXIUM 40 MG CPDR 1 cap daily ESOMEPRAZOLE MAGNESIUM 73583128106 No Longer Active Esvin PAULA Active MOBIC 15 MG TABS 1 tab daily MELOXICAM 58902952043 No Longer Active Esvin PAULA Active LISINOPRIL 20 MG TABS Take 1 tablet by mouth daily LISINOPRIL 89830122604 No Longer Active Esvin PAULA Active DICLOFENAC SODIUM 50 MG TBEC 1 tablet by mouth four times daily DICLOFENAC SODIUM 44161050306 No Longer Active Paula Cooney RN Active VERAMYST 27.5 MCG/SPRAY SUSP 2 spray each nare daily FLUTICASONE FUROATE 75659526831 No Longer Active Megan Vargas RN Active ENDOCET 10-325 MG TABS Take one (1) tablet by mouth three times a day OXYCODONE-ACETAMINOPHEN 17901733152 Active Rudy Cheung MD Active ALPRAZOLAM 2 MG TABS Take one (1) tablet by mouth three times a day ALPRAZOLAM 01148089954 Active Jonas PAULA Active NEXIUM 40 MG CPDR 1 cap by mouth daily ESOMEPRAZOLE MAGNESIUM 31735726467 No Longer Active Esvin PAULA Active ALPRAZOLAM 2 MG TABS 1 tablet by mouth three times daily as needed ALPRAZOLAM 43547081634 No Longer Active Esvin PAULA Active HYDROXYZINE HCL 25 MG TAB take 1 every 4-6 hours as needed 07/01 HYDROXYZINE HCL 20007789852 No Longer Active Esvin PAULA Active ENDOCET 10-325 MG TABS 1 by mouth twice a day OXYCODONE-ACETAMINOPHEN 57225893296 No Longer Active Esvin PAULA Active MS CONTIN 100 MG [id number] 1 by mouth twice a day MORPHINE SULFATE 73995562836 No Longer Active Esvin PAULA Active SUDAFED 30 MG TAB 1-2 every 4-6 hours as needed PSEUDOEPHEDRINE HCL 25717984716 Active Wily Gonzalez DO Active VERAMYST 27.5 MCG/SPRAY SUSP 2 spray each nare daily VERAMYST 27.5 MCG/SPRAY SUSP FLUTICASONE FUROATE Inactive DICLOFENAC SODIUM 50 MG TBEC 1 tablet by mouth four times daily DICLOFENAC SODIUM 50 MG TBEC 979154 DICLOFENAC SODIUM Inactive LISINOPRIL 20 MG TABS Take 1 tablet by mouth daily LISINOPRIL 20 MG TABS 722921 LISINOPRIL Inactive MOBIC 15 MG TABS 1 tab daily MOBIC 15 MG TABS 288411 MELOXICAM Inactive NEXIUM 40 MG CPDR 1 cap daily NEXIUM 40 MG CPDR ESOMEPRAZOLE MAGNESIUM Inactive CELEBREX 200 MG CAPS 1 tablet by mouth twice daily with meals CELEBREX 200 MG CAPS 763289 CELECOXIB Inactive FLEXERIL 10 MG TAB 1 tablet by mouth 3 times daily as needed FLEXERIL 10 MG TAB CYCLOBENZAPRINE HCL Inactive PROAIR HFA 108 (90 BASE) MCG/ACT AERS 2 puffs every four hours as needed PROAIR HFA 108 (90 BASE) MCG/ACT AERS ALBUTEROL SULFATE Inactive FLONASE 50 MCG/ACT SUSP 2 SPRAY EACH NARE DAILY FLONASE 50 MCG/ACT SUSP 540443 FLUTICASONE PROPIONATE Inactive CIALIS 10 MG TABS 1 every 72 hours as needed CIALIS 10 MG TABS TADALAFIL Inactive MORPHINE SULFATE ER 100 MG CR-TABS Take one (1) tablet by mouth twice a day MORPHINE SULFATE ER 100 MG CR-TABS MORPHINE SULFATE Inactive AMOXICILLIN 500 MG CAPS Take one (1) tablet by mouth three times a day 05/05 AMOXICILLIN 500 MG CAPS 248589 AMOXICILLIN Inactive ZIAC 2.5-6.25 MG TAB 1 tablet every morning for high blood pressure ZIAC 2.5-6.25 MG TAB 622845 BISOPROLOL-HCTZ Inactive ZIAC 2.5-6.25 MG TAB 1 tablet daily for high blood pressure 10/27 ZIAC 2.5-6.25 MG TAB 512856 BISOPROLOL-HCTZ Inactive HYDROXYZINE HCL 25 MG TABS Take one (1) tablet by mouth twice a day HYDROXYZINE HCL 25 MG TABS 286834 HYDROXYZINE HCL Inactive ANUSOL-HC 25 MG SUPPOSITORY 1 rectally every 12 hours for irritation ANUSOL-HC 25 MG SUPPOSITORY 6219202 HYDROCORTISONE NAEL (RECTAL ) Inactive HYDROXYZINE HCL 25 MG TAB 1 two times a day as needed for anxiety HYDROXYZINE HCL 25 MG TAB 684077 HYDROXYZINE HCL Inactive FLOMAX 0.4 MG CAPS 1 capsule in the evening for night time urination. FLOMAX 0.4 MG CAPS 930271 TAMSULOSIN HCL Inactive CLEMASTINE FUMARATE 1.34 MG ORAL TABS 1 tab PO BID CLEMASTINE FUMARATE 1.34 MG ORAL TABS 826421 CLEMASTINE FUMARATE Inactive MS CONTIN 100 MG [id number] 1 by mouth twice a day MS CONTIN 100 MG [id number] MORPHINE SULFATE Inactive ENDOCET 10-325 MG TABS 1 by mouth twice a day ENDOCET 10-325 MG TABS 9089831 OXYCODONE-ACETAMINOPHEN Inactive HYDROXYZINE HCL 25 MG TAB take 1 every 4-6 hours as needed 07/01 HYDROXYZINE HCL 25 MG TAB 510216 HYDROXYZINE HCL Inactive ALPRAZOLAM 2 MG TABS 1 tablet by mouth three times daily as needed ALPRAZOLAM 2 MG TABS 640461 ALPRAZOLAM Inactive NEXIUM 40 MG CPDR 1 [...] ... - Chemistry sodium, serum 138 mmol/L 254-624 3861/04/13 potassium, serum 4.9 mmol/L 3.5-5.2 chloride, serum [...] 142-424 Encounters Code Encounter Date Provider Facility CPT-84620 Level 3 Est. Patient 13:04:06 CDT Wily Gonzalez [facility] CPT-98693 Level 3 Est. Patient 12:23:04 CDT Wily Gonzalez [facility] CPT-48476 Level 3 Est. Patient 15:43:10 ENGINE LATHE TENDER Wily Gonzalez [facility] CPT-62158 Level 3 Est. Patient 16:10:54 CDT Wily Gonzalez [facility] CPT-25297 Level 3 Est. Patient 19:50:51 CDT Wily Gonzalez [facility] CPT-47527 Level 3 Est. Patient 12:02:30 ENGINE LATHE TENDER Wily Gonzalez [facility] CPT-39305 Level 3 Est. Patient 12:03:11 ENGINE LATHE TENDER Wily Gonzalez [facility] CPT-39813 Level 3 Est. Patient 12:01:41 ENGINE LATHE TENDER Wily Gonzalez [facility] CPT-94743 Level 3 Est. Patient 11:51:24 ENGINE LATHE TENDER Wily Gonzalez [facility] CPT-67036 Level 3 Est. Patient 11:58:20 ENGINE LATHE TENDER Wily Gonzalez [facility] CPT-78091 Level 3 Est. Patient 08:31:36 ENGINE LATHE TENDER Wily Gonzalez [facility] CPT-24135 Level 3 Est. Patient 21:57:36 CDT Wily Gonzalez [facility] CPT-90539 Level 3 Est. Patient 10:49:58 CDT Esvin [place] PA [facility] CPT-61691 Level 3 Est. Patient 11:22:52 CDT Esvin Tristan [facility] CPT-39285 Level 3 Est. Patient 13:49:41 CDT Esvin PAULA [facility] CPT-80606 Level 3 Est. Patient 11:54:53 CDT Esvin Tristan PA [facility] CPT-44970 Level 3 Est. Patient 09:07:11 CDT Esvin [facility] CPT-93699 Level 3 Est. Patient 13:52:47 CDT Esvin [place] PA [facility] CPT-96401 Level 3 Est. Patient 11:26:46 CDT Esvin Tristan PA [facility] CPT-18227 Level 3 Est. Patient 10:25:00 ENGINE LATHE TENDER Esvin PAULA [facility] CPT-10079 Level 3 Est. Patient 11:39:11 ENGINE LATHE TENDER Esvin PAULA [facility] CPT-35064 Level 3 Est. Patient 13:24:24 ENGINE LATHE TENDER Esvin PAULA [facility] CPT-99269 Level 3 Est. Patient 10:26:13 ENGINE LATHE TENDER Esvin PAULA [facility] CPT-94840 Level 3 Est. Patient 10:21:21 CDT Esvin PAULA [facility] CPT-83706 Level 3 Est. Patient 10:26:30 CDT Esvin Tristan CH[facility] CPT-08280 Level 3 Est. Patient 09:16:37 CDT Esvin Tristan [facility] CPT-00701 Level 3 Est. Patient 09:06:58 CDT Esvin Tristan CHAI [facility] CPT-46673 Level 3 Est. Patient 10:05:29 CDT Esvin Tristan [facility] CPT-25457 Level 3 Est. Patient 10:38:45 CDT Esvin [facility] CPT-36184 Level 3 Est. Patient 10:09:45 CDT Esvin [place] [facility] CPT-44282 Level 3 Est. Patient 09:26:37 CDT Esvin [place] [facility] CPT-83884 Level 3 Est. Patient 10:34:42 ENGINE LATHE TENDER Esvin Tristan [facility] CPT-92240 Level 3 Est. Patient 10:45:47 ENGINE LATHE TENDER Esvin Tristan [facility] CPT-57151 Level 3 Est. Patient 10:45:22 ENGINE LATHE TENDER Esvin Tristan [facility] CPT-20679 Level 3 Est. Patient 14:18:30 ENGINE LATHE TENDER Esvin Tristan [facility] CPT-48166 Level 3 Est. Patient 13:53:29 ENGINE LATHE TENDER Esvin Tristan [facility] CPT-12947 Level 3 Est. Patient 10:34:11 CDT Esvin [place] [facility] Procedures Code Procedure Name Date Entry Date Standard Description CPT-17831 Venipuncture Draw Fee 09:26:55 CDT CPT-50958 Venipuncture Draw Fee 11:55:52 CDT CPT-81460 Spec Collection and Handling Fee 09:16:37 CDT [facility]-09976 Venipuncture Draw Fee 09:16:37 CDT
--- OUTSIDE RECORDS SUMMARY | 2018-02-26 14:39 | XMS REPORT | Clinical Summary ---
Author Author Admin, E Organization [address] Mobile Address Unknown Phone Unavailable Allergies, Adverse Reactions, [...] R I 465.9 Inactive Wily Zhang Carlos ARMENDARIZ Acute upper respiratory infections of unspecified site [...] PAIN ICD-719.47 Inactive Wily Gonzalez DO 05/08 ANEMIA ICD-285.9 Inactive Wily Zhang Carlos Tinea corporis ICD-110.5 Inactive Wily Gonzalez DO [...] TABS 1 twice a day VARENICLINE TARTRATE 01887695230 Active Wily Gonzalez DO Active TRIAMCINOLONE ACETONIDE 0.1 % CREA Apply to affected area 3 times daily for up to 2 weeks TRIAMCINOLONE ACETONIDE 48218347700 Active Wily Gonzalez DO Active [id number] 167-83-8 MG TABS 1 tab po daily [id number] 73273523720 No Longer Active Wily Gnozalez DO Active NYSTATIN 899413 UNIT/GM CREA apply to rash TID PRN NYSTATIN 00955683860 No Longer Active Wily Gonzalez DO Active POLY-IRON 150 150 MG CAPS 1 tab po bid POLYSACCHARIDE IRON COMPLEX 01113243870 No Longer Active Wily Gonzalez DO Active FLONASE ALLERGY RELIEF 50 MCG/ACT NASAL SUSP 2 sprays each nostril every day FLUTICASONE PROPIONATE 31889445561 Active Jodi Lucas SIGNWRITER Active CLEMASTINE FUMARATE 1.34 MG ORAL TABS 1 tab PO BID CLEMASTINE FUMARATE 48041925667 No Longer Active Wily Gonzalez DO Active FLOMAX 0.4 MG CAPS 1 capsule in the evening for night time urination. TAMSULOSIN HCL 22938135029 No Longer Active Wily Gonzalez DO Active PROTONIX 40 MG TBEC 1 po daily PANTOPRAZOLE SODIUM 63123594528 Active Agnieszka Yeung Active HYDROXYZINE HCL 25 MG TAB 1 two times a day as needed for anxiety HYDROXYZINE HCL 54466062288 No Longer Active Wily Gonzalez DO Active ANUSOL-HC 25 MG SUPPOSITORY 1 rectally every 12 hours for irritation HYDROCORTISONE NAEL (RECTAL) 32218306488 No Longer Active Wily Gonzalez DO Active HYDROXYZINE HCL 25 MG TABS Take one (1) tablet by mouth twice a day HYDROXYZINE HCL 14110165848 No Longer Active Wily Gonzalez DO Active ZIAC 2.5-6.25 MG TAB 1 tablet daily for high blood pressure 10/27 BISOPROLOL-HCTZ 81256581112 No Longer Active Wily Gonzalez DO Active ZIAC 2.5-6.25 MG TAB 1 tablet every morning for high blood pressure BISOPROLOL-HCTZ 22783461813 No Longer Active Wily Gonzalez DO Active AMOXICILLIN 500 MG CAPS Take one (1) tablet by mouth three times a day 05/05 AMOXICILLIN 98109895468 No Longer Active Wily Gonzalez DO Active MORPHINE SULFATE ER 100 MG CR-TABS Take one (1) tablet by mouth twice a day MORPHINE SULFATE 43659376600 No Longer Active Wily Gonzalez DO Active MORPHINE SULFATE ER 100 MG [id number] 1 capsule twice daily for chronic pain MORPHINE SULFATE 94586314537 Active Wily Gonzalez DO Active CIALIS 10 MG TABS 1 every 72 hours as needed TADALAFIL 47248057190 No Longer Active Esvin PAULA Active FLONASE 50 MCG/ACT SUSP 2 SPRAY EACH NARE DAILY FLUTICASONE PROPIONATE 63680173275 No Longer Active Esvin PAULA Active CYCLOBENZAPRINE HCL 10 MG TABS Take one (1) tablet by mouth three times a day CYCLOBENZAPRINE HCL 96970710656 Active Agnieszka Yeung Active OPANA ER (CRUSH RESISTANT) 40 MG [id number] Take one (1) tablet by mouth twice a day OXYMORPHONE HCL 26312074091 No Longer Active Esvin PAULA Active PROAIR HFA 108 (90 BASE) MCG/ACT AERS 2 puffs every four hours as needed ALBUTEROL SULFATE 75513850214 No Longer Active Esvin PAULA Active CLEARLAX POWD 17gm q day prn constipation POLYETHYLENE GLYCOL 3350 25517138578 Active Wily Gonzalez DO Active MORPHINE SULFATE ER 100 MG [id number] Take one (1) tablet by mouth twice a day MORPHINE SULFATE 24238473865 No Longer Active Esvin PAULA Active FLEXERIL 10 MG TAB 1 tablet by mouth 3 times daily as needed CYCLOBENZAPRINE HCL 58679521046 No Longer Active Esvin PAULA Active CELEBREX 200 MG CAPS 1 tablet by mouth twice daily with meals CELECOXIB 17337550169 No Longer Active Esvin PAULA Active NEXIUM 40 MG CPDR 1 cap daily ESOMEPRAZOLE MAGNESIUM 49224956784 No Longer Active Esvin PAULA Active MOBIC 15 MG TABS 1 tab daily MELOXICAM 79136013980 No Longer Active Esvin PAULA Active LISINOPRIL 20 MG TABS Take 1 tablet by mouth daily LISINOPRIL 85542895630 No Longer Active Esvin PAULA Active DICLOFENAC SODIUM 50 MG TBEC 1 tablet by mouth four times daily DICLOFENAC SODIUM 70898834225 No Longer Active Paula Cooney RN Active VERAMYST 27.5 MCG/SPRAY SUSP 2 spray each nare daily FLUTICASONE FUROATE 00104508714 No Longer Active Meganbarbra Vargas RN Active ENDOCET 10-325 MG TABS Take one (1) tablet by mouth three times a day OXYCODONE-ACETAMINOPHEN 70259552542 Active Wily Gonzalez DO Active ALPRAZOLAM 2 MG TABS Take one (1) tablet by mouth three times a day ALPRAZOLAM 47111436340 Active Wily Gonzalez DO Active NEXIUM 40 MG CPDR 1 cap by mouth daily ESOMEPRAZOLE MAGNESIUM 73972934766 No Longer Active Esvin PAULA Active ALPRAZOLAM 2 MG TABS 1 tablet by mouth three times daily as needed ALPRAZOLAM 12636424528 No Longer Active Esvin PAULA Active HYDROXYZINE HCL 25 MG TAB take 1 every 4-6 hours as needed 07/01 HYDROXYZINE HCL 77036875325 No Longer Active Esvin PAULA Active ENDOCET 10-325 MG TABS 1 by mouth twice a day OXYCODONE-ACETAMINOPHEN 25828506332 No Longer Active Esvin PAULA Active MS CONTIN 100 MG [id number] 1 by mouth twice a day MORPHINE SULFATE 56239017189 No Longer Active Esvin PAULA Active SUDAFED 30 MG TAB 1-2 every 4-6 hours as needed PSEUDOEPHEDRINE HCL 02605531507 Active Marylou Melissa RPT,RMA Active VERAMYST 27.5 MCG/SPRAY SUSP 2 spray each nare daily VERAMYST 27.5 MCG/SPRAY SUSP FLUTICASONE FUROATE Inactive DICLOFENAC SODIUM 50 MG TBEC 1 tablet by mouth four times daily DICLOFENAC SODIUM 50 MG TBEC 451513 DICLOFENAC SODIUM Inactive LISINOPRIL 20 MG TABS Take 1 tablet by mouth daily LISINOPRIL 20 MG TABS 966768 LISINOPRIL Inactive MOBIC 15 MG TABS 1 tab daily MOBIC 15 MG TABS 277183 MELOXICAM Inactive NEXIUM 40 MG CPDR 1 cap daily NEXIUM 40 MG CPDR 474106 ESOMEPRAZOLE MAGNESIUM Inactive CELEBREX 200 MG CAPS 1 tablet by mouth twice daily with meals CELEBREX 200 MG CAPS 996800 CELECOXIB Inactive FLEXERIL 10 MG TAB 1 [...] a day 05/05 AMOXICILLIN 500 MG CAPS 608143 AMOXICILLIN Inactive ZIAC 2.5-6.25 MG TAB 1 tablet every morning for high blood pressure ZIAC 2.5-6.25 MG TAB 268286 BISOPROLOL-HCTZ Inactive ZIAC 2.5-6.25 MG TAB 1 tablet daily for high blood pressure 10/27 ZIAC 2.5-6.25 MG TAB 562163 BISOPROLOL-HCTZ Inactive HYDROXYZINE HCL 25 MG TABS Take one (1) tablet by mouth twice a day HYDROXYZINE HCL 25 MG TABS 306696 HYDROXYZINE HCL Inactive ANUSOL-HC 25 MG SUPPOSITORY 1 rectally every 12 hours for irritation ANUSOL-HC 25 MG SUPPOSITORY 8383242 HYDROCORTISONE NAEL (RECTAL ) Inactive HYDROXYZINE HCL 25 MG TAB 1 two times a day as needed for anxiety HYDROXYZINE HCL 25 MG TAB 781923 HYDROXYZINE HCL Inactive FLOMAX 0.4 MG CAPS 1 capsule in the evening for night time urination. FLOMAX 0.4 MG CAPS 674589 TAMSULOSIN HCL Inactive CLEMASTINE FUMARATE 1.34 MG ORAL TABS 1 tab PO BID CLEMASTINE FUMARATE 1.34 MG ORAL TABS 755604 CLEMASTINE FUMARATE Inactive POLY-IRON 150 150 MG CAPS 1 tab po bid POLY-IRON 150 150 MG CAPS POLYSACCHARIDE IRON COMPLEX Inactive NYSTATIN 652851 UNIT/GM CREA apply to rash TID PRN NYSTATIN 294751 UNIT/GM CREA 722410 NYSTATIN Inactive [id number] 167-83-8 MG TABS 1 tab po daily ETFBECM-IKQOTBPBF-DNWV 167-83-8 MG TABS RJMLAXW-[id number]-QASP Inactive MS CONTIN 100 MG [id number]-LVJ 1 by mouth twice a day MS CONTIN 100 MG AP10L-SGN MORPHINE SULFATE Inactive ENDOCET 10-325 MG TABS 1 by mouth twice a day ENDOCET 10-325 MG TABS 4710975 OXYCODONE-ACETAMINOPHEN Inactive HYDROXYZINE HCL 25 MG TAB take 1 every 4-6 hours as needed 07/01 HYDROXYZINE HCL 25 MG TAB 864449 HYDROXYZINE HCL Inactive ALPRAZOLAM 2 MG TABS 1 tablet by mouth three times daily as needed ALPRAZOLAM 2 MG TABS 496636 ALPRAZOLAM Inactive NEXIUM 40 MG CPDR 1 cap by mouth daily NEXIUM 40 MG CPDR 825580 ESOMEPRAZOLE MAGNESIUM Inactive Advance Directives Directive Description [...] ... - Chemistry sodium, serum 140 mmol/L 303-412 1373/03/25 carbon dioxide, venous blood 31.3 mmol/L 21.0-32.0 potassium, serum 4.0 mmol/L 3.5-5.2 chloride, serum 101 mmol/L 98-107 blood glucose 96 mg/dL 65-110 urea nitrogen, blood 7 mg/dL 7-18 creatinine, serum 0.94 mg/dL 0.55-1.30 alanine aminotransferase (SGPT), serum 23 U/L 12-78 aspartate aminotransferase (SGOT), serum 21 U/L 15-37 calcium, serum 8.9 mg/dL 8.5-10.1 bilirubin, serum, total 0.30 mg/dL 0.00-1.00 cholesterol, serum 169 mg/dL 114-920 1570/03/25 triglyceride, serum, fasting 143 mg/dL 30-200 HDL [...] 5.0-8.5 Encounters Code Encounter Date Provider Facility CPT-61082 Level 3 Est. Patient 09:51:37 EDUCATION PROFESSIONAL Wily Gonzalez [facility] CPT-55904 Level 3 Est. Patient 11:07:48 CDT Wily Gonzalez [facility] CPT-94592 Level 3 Est. Patient 11:24:24 CDT Wily Zhang [facility] CPT-98822 Level 3 Est. Patient 15:19:54 EDUCATION PROFESSIONAL Wily Gonzalez [facility] CPT-12541 Level 3 Est. Patient 10:04:45 CDT Wily Gonzalez [facility] CPT-79422 Level 3 Est. Patient 13:04:06 CDT Wily Gonzalez [facility] CPT-28176 Level 3 Est. Patient 12:23:04 CDT Wily Gonzalez [facility] CPT-30697 Level 3 Est. Patient 15:43:10 EDUCATION PROFESSIONAL Wily Gonzalez [facility] CPT-38790 Level 3 Est. Patient 16:10:54 CDT Wily Gonzalez [facility] CPT-73313 Level 3 Est. Patient 19:50:51 CDT Wily Zhang [facility] CPT-21815 Level 3 Est. Patient 12:02:30 EDUCATION PROFESSIONAL Wily Gonzalez [facility] CPT-16179 Level 3 Est. Patient 12:03:11 EDUCATION PROFESSIONAL Wily Gonzalez [facility] CPT-88019 Level 3 Est. Patient 12:01:41 EDUCATION PROFESSIONAL Wily Gonzalez [facility] CPT-39285 Level 3 Est. Patient 11:51:24 EDUCATION PROFESSIONAL Wily Gonzalez [facility] CPT-45769 Level 3 Est. Patient 11:58:20 EDUCATION PROFESSIONAL Wily Gonzalez [facility] CPT-75989 Level 3 Est. Patient 08:31:36 EDUCATION PROFESSIONAL Wily Gonzalez [facility] CPT-17818 Level 3 Est. Patient 21:57:36 CDT Wily Gonzalez [facility] CPT-93953 Level 3 Est. Patient 10:49:[address] [facility] CPT-45036 Level 3 Est. Patient 11:22:[address] [facility] CPT-48488 Level 3 Est. Patient 13:49:[address] [facility] CPT-49195 Level 3 Est. Patient 11:54:[address] [facility] CPT-00865 Level 3 Est. Patient 09:07:11 CDT Esvin PAULA [facility] CPT-08205 Level 3 Est. Patient 13:52:47 CDT Esvin PAULA [facility] CPT-07799 Level 3 Est. Patient 11:26:[address] [facility] CPT-82289 Level 3 Est. Patient 10:25:00 EDUCATION PROFESSIONAL Esvin PAULA [facility] CPT-70697 Level 3 Est. Patient 11:39:11 EDUCATION PROFESSIONAL Esvin PAULA [facility] CPT-13258 Level 3 Est. Patient 13:24:24 EDUCATION PROFESSIONAL Esvin Tristan PA [facility] CPT-79707 Level 3 Est. Patient 10:26:13 EDUCATION PROFESSIONAL Esvin Watonga PA [facility] CPT-41187 Level 3 Est. Patient 10:21:21 CDT Esvin Tristan PA [facility] CPT-26984 Level 3 Est. Patient 10:26:30 CDT Esvin Hudson CHAI [facility] CPT-68546 Level 3 Est. Patient 09:16:37 CDT Esvin [place] PA [facility]-40371 Level 3 Est. Patient 09:06:58 CDT Esvin [place] PA [facility] CPT-70293 Level 3 Est. Patient 10:05:29 CDT Esvin Watong[place] PA [facility] CPT-34925 Level 3 Est. Patient 10:38:45 CDT Esvin [place] PA [facility] CPT-68299 Level 3 Est. Patient 10:09:45 CDT Esvin Tristan PA [facility] CPT-12740 Level 3 Est. Patient 09:26:37 CDT Esvin [place]ong[place] PA [facility] CPT-45033 Level 3 Est. Patient 10:34:42 EDUCATION PROFESSIONAL Esvin Tristan CHAI [facility] CPT-52035 Level 3 Est. Patient 10:45:47 EDUCATION PROFESSIONAL Esvin Tristan PA [facility] CPT-39405 Level 3 Est. Patient 10:45:22 EDUCATION PROFESSIONAL Esvin Tristan PA [facility]-66128 Level 3 Est. Patient 14:18:30 EDUCATION PROFESSIONAL Esvin PAULA [facility] CPT-28406 Level 3 Est. Patient 13:53:29 EDUCATION PROFESSIONAL Esvin PAULA [facility] CPT-12601 Level 3 Est. Patient 10:34:11 CDT Esvin Hudson [facility] Procedures Code Procedure Name Date Entry Date Standard Description CPT-98833 LS spine AP and Lat - XRAY USE ONLY 10:07:43 EDUCATION PROFESSIONAL 10/26 CPT-03109 Venipuncture Draw Fee 09:51:16 EDUCATION PROFESSIONAL CPT-62134 Smoking Cessation counseling 09:39:47 EDUCATION PROFESSIONAL CPT-G0438 Initial Annual Wellness Exam 09:37:28 EDUCATION PROFESSIONAL CPT-80108 Venipuncture Draw Fee 09:26:55 CDT CPT-44910 Venipuncture Draw Fee 11:55:52 CDT CPT-27314 Spec Collection and Handling Fee 09:16:37 CDT CPT-99300 Venipuncture Draw Fee 09:16:37 CDT
--- OUTSIDE RECORDS SUMMARY | 2018-02-26 14:40 | XMS REPORT | Clinical Summary ---
Author Author Admin, E Organization [facility] Address Unknown Phone Unavailable Allergies, Adverse [...] Esvin PAULA Esophageal reflux ANXIETY 300.00 Active sEvin PAULA Anxiety state, unspecified FH DIABETES V18.0 [...] TABS 1 twice a day VARENICLINE TARTRATE 78384135730 Active Wily Gonzalez DO Active TRIAMCINOLONE ACETONIDE 0.1 % CREA Apply to affected area 3 times daily for up to 2 weeks TRIAMCINOLONE ACETONIDE 21571460715 Active Wily Gonzalez DO Active [id number] 167-83-8 MG TABS 1 tab po daily [id number] 26045831131 No Longer Active Wily Gonzalez DO Active NYSTATIN 014787 UNIT/GM CREA apply to rash TID PRN NYSTATIN 89734894575 No Longer Active Wily Gonzalez DO Active POLY-IRON 150 150 MG CAPS 1 tab po bid POLYSACCHARIDE IRON COMPLEX 09203272535 No Longer Active Wily Gonzalez DO Active FLONASE ALLERGY RELIEF 50 MCG/ACT NASAL SUSP 2 sprays each nostril every day FLUTICASONE PROPIONATE 69930522673 Active Jodi Lucas APRN Active CLEMASTINE FUMARATE 1.34 MG ORAL TABS 1 tab PO BID CLEMASTINE FUMARATE 20916750809 No Longer Active Wily Gonzalez DO Active FLOMAX 0.4 MG CAPS 1 capsule in the evening for night time urination. TAMSULOSIN HCL 15855293510 No Longer Active Wily Gonzalez DO Active PROTONIX 40 MG TBEC 1 po daily PANTOPRAZOLE SODIUM 70751828405 Active Agnieszka Yeung Active HYDROXYZINE HCL 25 MG TAB 1 two times a day as needed for anxiety HYDROXYZINE HCL 10286713052 No Longer Active Wily Gonzalez DO Active ANUSOL-HC 25 MG SUPPOSITORY 1 rectally every 12 hours for irritation HYDROCORTISONE NAEL (RECTAL) 01913153774 No Longer Active Wily Gonzalez DO Active HYDROXYZINE HCL 25 MG TABS Take one (1) tablet by mouth twice a day HYDROXYZINE HCL 40618437082 No Longer Active Wily Gonzalez DO Active ZIAC 2.5-6.25 MG TAB 1 tablet daily for high blood pressure 10/27 BISOPROLOL-HCTZ 96234548279 No Longer Active Wily Gonzalez DO Active ZIAC 2.5-6.25 MG TAB 1 tablet every morning for high blood pressure BISOPROLOL-HCTZ 23234498695 No Longer Active Wily Gonzalez DO Active AMOXICILLIN 500 MG CAPS Take one (1) tablet by mouth three times a day 05/05 AMOXICILLIN 62802995860 No Longer Active Wily Gonzalez DO Active MORPHINE SULFATE ER 100 MG CR-TABS Take one (1) tablet by mouth twice a day MORPHINE SULFATE 36168809977 No Longer Active Wily Gonzalez DO Active MORPHINE SULFATE ER 100 MG [id number] 1 capsule twice daily for chronic pain MORPHINE SULFATE 17486431017 Active Wily Gonzalez DO Active CIALIS 10 MG TABS 1 every 72 hours as needed TADALAFIL 30957420338 No Longer Active Esvin PAULA Active FLONASE 50 MCG/ACT SUSP 2 SPRAY EACH NARE DAILY FLUTICASONE PROPIONATE 87530248409 No Longer Active Esvin PAULA Active CYCLOBENZAPRINE HCL 10 MG TABS Take one (1) tablet by mouth three times a day CYCLOBENZAPRINE HCL 89359668906 Active Lisa Berkowitz Active OPANA ER (CRUSH RESISTANT) 40 MG IJ95H-NUT Take one (1) tablet by mouth twice a day OXYMORPHONE HCL 44088272613 No Longer Active Esvin PAULA Active PROAIR HFA 108 (90 BASE) MCG/ACT AERS 2 puffs every four hours as needed ALBUTEROL SULFATE 97971788105 No Longer Active Esvin PAULA Active CLEARLAX POWD 17gm q day prn constipation POLYETHYLENE GLYCOL 3350 55992578734 Active Wily Gonzalez DO Active MORPHINE SULFATE ER 100 MG [id number]-ZXT Take one (1) tablet by mouth twice a day MORPHINE SULFATE 64281695027 No Longer Active Esvin PAULA Active FLEXERIL 10 MG TAB 1 tablet by mouth 3 times daily as needed CYCLOBENZAPRINE HCL 28712050991 No Longer Active Esvin PAULA Active CELEBREX 200 MG CAPS 1 tablet by mouth twice daily with meals CELECOXIB 57257889236 No Longer Active Esvin PAULA Active NEXIUM 40 MG CPDR 1 cap daily ESOMEPRAZOLE MAGNESIUM 41829276011 No Longer Active Esvin PAULA Active MOBIC 15 MG TABS 1 tab daily MELOXICAM 57193328656 No Longer Active Esvin PAULA Active LISINOPRIL 20 MG TABS Take 1 tablet by mouth daily LISINOPRIL 05959713952 No Longer Active Esvin PAULA Active DICLOFENAC SODIUM 50 MG TBEC 1 tablet by mouth four times daily DICLOFENAC SODIUM 00433442953 No Longer Active Paula Cooney RN Active VERAMYST 27.5 MCG/SPRAY SUSP 2 spray each nare daily FLUTICASONE FUROATE 67573064472 No Longer Active Megan Vargas RN Active ENDOCET 10-325 MG TABS Take one (1) tablet by mouth three times a day OXYCODONE-ACETAMINOPHEN 53450261767 Active Wily Gonzalez DO Active ALPRAZOLAM 2 MG TABS Take one (1) tablet by mouth three times a day ALPRAZOLAM 61135470366 Active Wily Gonzalez DO Active NEXIUM 40 MG CPDR 1 cap by mouth daily ESOMEPRAZOLE MAGNESIUM 30706130842 No Longer Active Esvin PAULA Active ALPRAZOLAM 2 MG TABS 1 tablet by mouth three times daily as needed ALPRAZOLAM 83313964722 No Longer Active Esvin PAULA Active HYDROXYZINE HCL 25 MG TAB take 1 every 4-6 hours as needed 07/01 HYDROXYZINE HCL 08140410460 No Longer Active Esvin PAULA Active ENDOCET 10-325 MG TABS 1 by mouth twice a day OXYCODONE-ACETAMINOPHEN 01749148984 No Longer Active Esvin PAULA Active MS CONTIN 100 MG [id number] 1 by mouth twice a day MORPHINE SULFATE 38469224074 No Longer Active Esvin PAULA Active SUDAFED 30 MG TAB 1-2 every 4-6 hours as needed PSEUDOEPHEDRINE HCL 12436967566 Active Marylou Melissa RPT,RMA Active VERAMYST 27.5 MCG/SPRAY SUSP 2 spray each nare daily VERAMYST 27.5 MCG/SPRAY SUSP FLUTICASONE FUROATE Inactive DICLOFENAC SODIUM 50 MG TBEC 1 tablet by mouth four times daily DICLOFENAC SODIUM 50 MG TBEC 103477 DICLOFENAC SODIUM Inactive LISINOPRIL 20 MG TABS Take 1 tablet by mouth daily LISINOPRIL 20 MG TABS 894080 LISINOPRIL Inactive MOBIC 15 MG TABS 1 tab daily MOBIC 15 MG TABS 243919 MELOXICAM Inactive NEXIUM 40 MG CPDR 1 cap daily NEXIUM 40 MG CPDR 967958 ESOMEPRAZOLE MAGNESIUM Inactive CELEBREX 200 MG CAPS 1 tablet by mouth twice daily with meals CELEBREX 200 MG CAPS 869663 CELECOXIB Inactive FLEXERIL 10 MG TAB 1 [...] a day 05/05 AMOXICILLIN 500 MG CAPS 054116 AMOXICILLIN Inactive ZIAC 2.5-6.25 MG TAB 1 tablet every morning for high blood pressure ZIAC 2.5-6.25 MG TAB 137104 BISOPROLOL-HCTZ Inactive ZIAC 2.5-6.25 MG TAB 1 tablet daily for high blood pressure 10/27 ZIAC 2.5-6.25 MG TAB 771809 BISOPROLOL-HCTZ Inactive HYDROXYZINE HCL 25 MG TABS Take one (1) tablet by mouth twice a day HYDROXYZINE HCL 25 MG TABS 283539 HYDROXYZINE HCL Inactive ANUSOL-HC 25 MG SUPPOSITORY 1 rectally every 12 hours for irritation ANUSOL-HC 25 MG SUPPOSITORY 8905188 HYDROCORTISONE NAEL (RECTAL ) Inactive HYDROXYZINE HCL 25 MG TAB 1 two times a day as needed for anxiety HYDROXYZINE HCL 25 MG TAB 087786 HYDROXYZINE HCL Inactive FLOMAX 0.4 MG CAPS 1 capsule in the evening for night time urination. FLOMAX 0.4 MG CAPS 609869 TAMSULOSIN HCL Inactive CLEMASTINE FUMARATE 1.34 MG ORAL TABS 1 tab PO BID CLEMASTINE FUMARATE 1.34 MG ORAL TABS 054254 CLEMASTINE FUMARATE Inactive POLY-IRON 150 150 MG CAPS 1 tab po bid POLY-IRON 150 150 MG CAPS POLYSACCHARIDE IRON COMPLEX Inactive NYSTATIN 118331 UNIT/GM CREA apply to rash TID PRN NYSTATIN 382591 UNIT/GM CREA 037771 NYSTATIN Inactive IOFRVFT-JFIOLJIXA-NECE 167-83-8 MG TABS 1 tab po daily OHLWIWK-CVNABKSKY-IVMK 167-83-8 MG TABS PHGTYKF-OFMMYIEWK-JIDV Inactive MS CONTIN 100 MG VU62Y-CGD 1 by mouth twice a day MS CONTIN 100 MG KY92D-HRV MORPHINE SULFATE Inactive ENDOCET 10-325 MG TABS 1 by mouth twice a day ENDOCET 10-325 MG TABS 8077693 OXYCODONE-ACETAMINOPHEN Inactive HYDROXYZINE HCL 25 MG TAB take 1 every 4-6 hours as needed 07/01 HYDROXYZINE HCL 25 MG TAB 751121 HYDROXYZINE HCL Inactive ALPRAZOLAM 2 MG TABS 1 tablet by mouth three times daily as needed ALPRAZOLAM 2 MG TABS 382691 ALPRAZOLAM Inactive NEXIUM 40 MG CPDR 1 cap by mouth daily NEXIUM 40 MG CPDR 014693 ESOMEPRAZOLE MAGNESIUM Inactive Advance Directives Directive Description [...] ... - Chemistry sodium, serum 140 mmol/L 974-884 6369/03/25 carbon dioxide, venous blood 31.3 mmol/L 21.0-32.0 potassium, serum 4.0 mmol/L 3.5-5.2 chloride, serum 101 mmol/L 98-107 blood glucose 96 mg/dL 65-110 urea nitrogen, blood 7 mg/dL 7-18 creatinine, serum 0.94 mg/dL 0.55-1.30 alanine aminotransferase (SGPT), serum 23 U/L 12-78 aspartate aminotransferase (SGOT), serum 21 U/L 15-37 calcium, serum 8.9 mg/dL 8.5-10.1 bilirubin, serum, total 0.30 mg/dL 0.00-1.00 cholesterol, serum 169 mg/dL 772-858 4979/03/25 triglyceride, serum, fasting 143 mg/dL 30-200 HDL [...] 5.0-8.5 Encounters Code Encounter Date Provider Facility CPT-33513 Level 3 Est. Patient 09:51:37 PULLING MACHINE OPERATOR Wily Zhang [facility] CPT-71819 Level 3 Est. Patient 11:07:48 CDT Wily Zhang [facility] CPT-02139 Level 3 Est. Patient 11:24:24 CDT Wily Zhang [facility] CPT-79007 Level 3 Est. Patient 15:19:54 PULLING MACHINE OPERATOR Wily Zhang [facility] CPT-44805 Level 3 Est. Patient 10:04:45 CDT Wily Zhang [facility] CPT-85510 Level 3 Est. Patient 13:04:06 CDT Wily Zhang [facility] CPT-82024 Level 3 Est. Patient 12:23:04 CDT Wily Zhang [facility] CPT-67557 Level 3 Est. Patient 15:43:10 PULLING MACHINE OPERATOR Wily Zhang [facility] CPT-91126 Level 3 Est. Patient 16:10:54 CDT Wily Gonzalez [facility] CPT-16638 Level 3 Est. Patient 19:50:51 CDT Wily Gonzalez [facility] CPT-09602 Level 3 Est. Patient 12:02:30 PULLING MACHINE OPERATOR Wily Gonzalez [facility] CPT-91780 Level 3 Est. Patient 12:03:11 PULLING MACHINE OPERATOR Wily Gonzalez [facility] CPT-55371 Level 3 Est. Patient 12:01:41 PULLING MACHINE OPERATOR Wily Gonzalez [facility] CPT-98621 Level 3 Est. Patient 11:51:24 PULLING MACHINE OPERATOR Wily Gonzalez [facility] CPT-79202 Level 3 Est. Patient 11:58:20 PULLING MACHINE OPERATOR Wily Gonzalez [facility] CPT-77867 Level 3 Est. Patient 08:31:36 PULLING MACHINE OPERATOR Wily Gonzalez [facility] CPT-75585 Level 3 Est. Patient 21:57:36 CDT Wily Gonzalez [facility] CPT-76831 Level 3 Est. Patient 10:49:58 CDT Esvin PAULA [facility] CPT-13420 Level 3 Est. Patient 11:22:52 CDT Esvin Hudson [facility] CPT-49544 Level 3 Est. Patient 13:49:41 CDT Esvin Hudson [facility] CPT-64525 Level 3 Est. Patient 11:54:53 CDT Esvin Hudson [facility] CPT-43466 Level 3 Est. Patient 09:07:11 CDT Esvin Hudson [facility] CPT-31012 Level 3 Est. Patient 13:52:47 CDT Esvin Hudson [facility] CPT-30730 Level 3 Est. Patient 11:26:46 CDT Esvin PAULA [facility] CPT-82603 Level 3 Est. Patient 10:25:00 PULLING MACHINE OPERATOR Esvin Houston PA [facility] CPT-54245 Level 3 Est. Patient 11:39:11 PULLING MACHINE OPERATOR Esvin Priestinge PAULA [facility]-02696 Level 3 Est. Patient 13:24:24 PULLING MACHINE OPERATOR Esvin Tristan PA [facility] CPT-91288 Level 3 Est. Patient 10:26:13 PULLING MACHINE OPERATOR Esvin Priestinge PAULA [facility] CPT-50499 Level 3 Est. Patient 10:21:21 CDT Esvin Tristan PA [facility]-36952 Level 3 Est. Patient 10:26:30 CDT Esvin Houston PA [facility] CPT-71046 Level 3 Est. Patient 09:16:37 CDT Esvin Tristan PA [facility]-31473 Level 3 Est. Patient 09:06:58 CDT Esvin Houston PA [facility] CPT-00531 Level 3 Est. Patient 10:05:29 CDT Esvin Houston PA [facility] CPT-40389 Level 3 Est. Patient 10:38:45 CDT Esvin Houston PA [facility] CPT-25514 Level 3 Est. Patient 10:09:45 CDT Esvin Tristan CHAI [facility] CPT-36807 Level 3 Est. Patient 09:26:37 CDT Esvin Tristan PA [facility] CPT-77492 Level 3 Est. Patient 10:34:42 PULLING MACHINE OPERATOR Esvin Houston PA [facility] CPT-43033 Level 3 Est. Patient 10:45:47 PULLING MACHINE OPERATOR Esvin PAULA [facility] CPT-50506 Level 3 Est. Patient 10:45:22 PULLING MACHINE OPERATOR Esvin Hudson [facility] CPT-03985 Level 3 Est. Patient 14:18:30 PULLING MACHINE OPERATOR Esvin Hudson [facility] CPT-45007 Level 3 Est. Patient 13:53:29 PULLING MACHINE OPERATOR Esvin Houston [facility] CPT-16765 Level 3 Est. Patient 10:34:11 CDT Esvin Houston [facility] Procedures Code Procedure Name Date Entry Date Standard Description CPT-07833 Bone Density - XRAY USE ONLY 11:29:32 CDT CPT-93294 LS spine AP and Lat - XRAY USE ONLY 10:07:43 PULLING MACHINE OPERATOR 10/26 CPT-16491 Venipuncture Draw Fee 09:51:16 PULLING MACHINE OPERATOR CPT-70064 Smoking Cessation counseling 09:39:47 PULLING MACHINE OPERATOR CPT-G0438 Initial Annual Wellness Exam 09:37:28 PULLING MACHINE OPERATOR CPT-19752 Venipuncture Draw Fee 09:26:55 CDT CPT-03539 Venipuncture Draw Fee 11:55:52 CDT CPT-30920 Spec Collection and Handling Fee 09:16:37 CDT CPT-62432 Venipuncture Draw Fee 09:16:37 CDT
--- OUTSIDE RECORDS SUMMARY | 2018-02-26 14:41 | XMS REPORT | Clinical Summary ---
Author Author Admin, E Organization [employer] Address Unknown Phone Unavailable Allergies, Adverse Reactions, [...] PAULA Lumbago ANKLE PAIN 719.47 Resolved Wily oGnzalez DO Pain in joint involving ankle and [...] Active Wily Gonzalez DO Unspecified essential hypertension ANKLE PAIN ICD-719.47 Inactive Wily Gonzalez DO [...] twice dialy for blood pressure METOPROLOL TARTRATE 91709096174 Active Wily Gonzalez DO Active CHANTIX 1 MG ORAL TABLET 1 twice a day VARENICLINE TARTRATE 11969702346 No Longer Active Wily Gonzalez DO Active RAUL-MAG 500-250 MG ORAL TABLET Take one by mouth daily CALCIUM -MAGNESIUM 15475673153 Active Wily Gonzalez DO Active FOSAMAX 70 MG ORAL TABLET 1 po qweek. Take 30min prior to first food/drink. Avoid lying down x 1 hour. ALENDRONATE SODIUM 25438128317 Active Laurie Latham LPN Active CALCIUM 600 MG ORAL TABLET 1 po q day CALCIUM 89085500045 Active Rose Bang Active TRIAMCINOLONE ACETONIDE 0.1 % EXTERNAL CREAM Apply to affected area 3 times daily for up to 2 weeks TRIAMCINOLONE ACETONIDE 45890742569 Active Wily Gonzalez DO Active NPNNCCE-NWDETIOHG-CPPJ 167-83-8 MG ORAL TABLET 1 tab po daily MQIBEDI-FYSOTAWKC-QLLJ 13416175473 No Longer Active Wily Gonzalez DO Active NYSTATIN 741480 UNIT/GM EXTERNAL CREAM apply to rash TID PRN 2015 NYSTATIN 74123656159 No Longer Active Wily Gonzalez DO Active POLY-IRON 150 150 MG ORAL CAPSULE 1 tab po bid POLYSACCHARIDE IRON COMPLEX 08307095211 No Longer Active Wily Gonzalez DO Active FLONASE ALLERGY RELIEF 50 MCG/ACT NASAL SUSPENSION 2 sprays each nostril every day FLUTICASONE PROPIONATE 23584656596 Active Wily Gonzalez DO Active CLEMASTINE FUMARATE 1.34 MG ORAL TABLET 1 tab PO BID CLEMASTINE FUMARATE 86164732261 No Longer Active Wily Gonzalez DO Active FLOMAX 0.4 MG ORAL CAPSULE 1 capsule in the evening for night time urination. TAMSULOSIN HCL 63227187094 No Longer Active Wily Gonzalez DO Active PROTONIX 40 MG ORAL TABLET DELAYED RELEASE 1 po daily PANTOPRAZOLE SODIUM 29391643575 Active Lisa Berkowitz Active HYDROXYZINE HCL 25 MG ORAL TABLET 1 two times a day as needed for anxiety HYDROXYZINE HCL 04775496082 No Longer Active Wily Gonzalez DO Active ANUSOL-HC 25 MG RECTAL SUPPOSITORY 1 rectally every 12 hours for irritation HYDROCORTISONE NAEL (RECTAL) 06624976729 No Longer Active Wily Gonzalez DO Active HYDROXYZINE HCL 25 MG ORAL TABLET Take one (1) tablet by mouth twice a day HYDROXYZINE HCL 58912627533 No Longer Active Wily Gonzalez DO Active ZIAC 2.5-6.25 MG ORAL TABLET 1 tablet daily for high blood pressure BISOPROLOL-HCTZ 99041889886 No Longer Active Wily Gonzalez DO Active ZIAC 2.5-6.25 MG ORAL TABLET 1 tablet every morning for high blood pressure BISOPROLOL-HCTZ 01855197820 No Longer Active Wily Gonzalez DO Active AMOXICILLIN 500 MG ORAL CAPSULE Take one (1) tablet by mouth three times a day AMOXICILLIN 72561558512 No Longer Active Wily Gonzalez DO Active MORPHINE SULFATE ER 100 MG ORAL TABLET EXTENDED RELEASE Take one (1) tablet by mouth twice a day MORPHINE SULFATE 22905363993 No Longer Active Wily Gonzalez DO Active MORPHINE SULFATE ER 100 MG ORAL CAPSULE EXTENDED RELEASE 24 HOUR 1 capsule twice daily for chronic pain MORPHINE SULFATE 19650174184 Active Wily Gonzalez DO Active CIALIS 10 MG ORAL TABLET 1 every 72 hours as needed TADALAFIL 52090789282 No Longer Active Esvin PAULA Active FLONASE 50 MCG/ACT NASAL SUSPENSION 2 SPRAY EACH NARE DAILY 05/08 FLUTICASONE PROPIONATE 87887036351 No Longer Active Esvin PAULA Active CYCLOBENZAPRINE HCL 10 MG ORAL TABLET Take one (1) tablet by mouth three times a day CYCLOBENZAPRINE HCL 99830353015 Active Rose Bang Active OPANA ER 40 MG ORAL TABLET ER 12 HOUR ABUSE-DETERRENT Take one (1) tablet by mouth twice a day OXYMORPHONE HCL 69579861791 No Longer Active Esvin PAULA Active PROAIR HFA 108 (90 Base) MCG/ACT INHALATION AEROSOL SOLUTION 2 puffs every four hours as needed ALBUTEROL SULFATE 20406038128 No Longer Active Esvin PAULA Active CLEARLAX ORAL POWDER 17gm q day prn constipation POLYETHYLENE GLYCOL 3350 43800454095 Active Wily Gonzalez DO Active MORPHINE SULFATE ER 100 MG ORAL CAPSULE EXTENDED RELEASE 24 HOUR Take one (1) tablet by mouth twice a day MORPHINE SULFATE 27704839623 No Longer Active Esvin PAULA Active FLEXERIL 10 MG TAB 1 tablet by mouth 3 times daily as needed CYCLOBENZAPRINE HCL 11858660464 No Longer Active Esvin PAULA Active CELEBREX 200 MG ORAL CAPSULE 1 tablet by mouth twice daily with meals 2012 CELECOXIB 72499562528 No Longer Active Esvin PAULA Active NEXIUM 40 MG ORAL CAPSULE DELAYED RELEASE 1 cap daily ESOMEPRAZOLE MAGNESIUM 70707327174 No Longer Active Esvin PAULA Active MOBIC 15 MG ORAL TABLET 1 tab daily MELOXICAM 74647145920 No Longer Active Esvin PAULA Active LISINOPRIL 20 MG ORAL TABLET Take 1 tablet by mouth daily LISINOPRIL 11941237629 No Longer Active Esvin PAULA Active DICLOFENAC SODIUM 50 MG ORAL TABLET DELAYED RELEASE 1 tablet by mouth four times daily DICLOFENAC SODIUM 74520645861 No Longer Active Paula Cooney RN Active VERAMYST 27.5 MCG/SPRAY NASAL SUSPENSION 2 spray each nare daily FLUTICASONE FUROATE 37583605735 No Longer Active Megan Vargas RN Active ENDOCET 10-325 MG ORAL TABLET Take one (1) tablet by mouth three times a day OXYCODONE-ACETAMINOPHEN 25882409942 Active Wily Gonzalez DO Active ALPRAZOLAM 2 MG ORAL TABLET Take one (1) tablet by mouth three times a day ALPRAZOLAM 34237450125 Active Wily Gonzalez DO Active NEXIUM 40 MG ORAL CAPSULE DELAYED RELEASE 1 cap by mouth daily ESOMEPRAZOLE MAGNESIUM 57500792830 No Longer Active Esvin PAULA Active ALPRAZOLAM 2 MG ORAL TABLET 1 tablet by mouth three times daily as needed ALPRAZOLAM 58797110935 No Longer Active Esvin PAULA Active HYDROXYZINE HCL 25 MG ORAL TABLET take 1 every 4-6 hours as needed HYDROXYZINE HCL 89297892094 No Longer Active Esvin PAULA Active ENDOCET 10-325 MG ORAL TABLET 1 by mouth twice a day OXYCODONE-ACETAMINOPHEN 81907229321 No Longer Active Esvin PAULA Active MS CONTIN 100 MG ORAL TABLET EXTENDED RELEASE 1 by mouth twice a day MORPHINE SULFATE 78658284149 No Longer Active Esvin PAULA Active SUDAFED 30 MG ORAL TABLET 1-2 every 4-6 hours as needed PSEUDOEPHEDRINE HCL 12984653213 Active Rose Bang Active VERAMYST 27.5 MCG/SPRAY NASAL SUSPENSION 2 spray each nare daily VERAMYST 27.5 MCG/SPRAY NASAL SUSPENSION FLUTICASONE FUROATE Inactive DICLOFENAC SODIUM 50 MG ORAL TABLET DELAYED RELEASE 1 tablet by mouth four times daily DICLOFENAC SODIUM 50 MG ORAL TABLET DELAYED RELEASE 423305 DICLOFENAC SODIUM Inactive LISINOPRIL 20 MG ORAL TABLET Take 1 tablet by mouth daily LISINOPRIL 20 MG ORAL TABLET 340663 LISINOPRIL Inactive MOBIC 15 MG ORAL TABLET 1 tab daily MOBIC 15 MG ORAL TABLET 591662 MELOXICAM Inactive NEXIUM 40 MG ORAL CAPSULE DELAYED RELEASE 1 cap daily NEXIUM 40 MG ORAL CAPSULE DELAYED RELEASE 043112 ESOMEPRAZOLE MAGNESIUM Inactive CELEBREX 200 MG ORAL CAPSULE 1 tablet by mouth twice daily with meals 2012 CELEBREX 200 MG ORAL CAPSULE 738893 CELECOXIB Inactive FLEXERIL 10 MG TAB 1 [...] DAILY 05/08 FLONASE 50 MCG/ACT NASAL SUSPENSION 1058904 FLUTICASONE PROPIONATE Inactive CIALIS 10 MG ORAL [...] a day AMOXICILLIN 500 MG ORAL CAPSULE 750528 AMOXICILLIN Inactive ZIAC 2.5-6.25 MG ORAL TABLET 1 tablet every morning for high blood pressure ZIAC 2.5-6.25 MG ORAL TABLET 590080 BISOPROLOL-HCTZ Inactive ZIAC 2.5-6.25 MG ORAL TABLET 1 tablet daily for high blood pressure ZIAC 2.5-6.25 MG ORAL TABLET 482136 BISOPROLOL-HCTZ Inactive HYDROXYZINE HCL 25 MG ORAL TABLET Take one (1) tablet by mouth twice a day HYDROXYZINE HCL 25 MG ORAL TABLET 535315 HYDROXYZINE HCL Inactive ANUSOL-HC 25 MG RECTAL SUPPOSITORY 1 rectally every 12 hours for irritation ANUSOL-HC 25 MG RECTAL SUPPOSITORY 9463460 HYDROCORTISONE NAEL (RECTAL) Inactive HYDROXYZINE HCL 25 MG ORAL TABLET 1 two times a day as needed for anxiety HYDROXYZINE HCL 25 MG ORAL TABLET 001413 HYDROXYZINE HCL Inactive FLOMAX 0.4 MG ORAL CAPSULE 1 capsule in the evening for night time urination. FLOMAX 0.4 MG ORAL CAPSULE 487463 TAMSULOSIN HCL Inactive CLEMASTINE FUMARATE 1.34 MG ORAL TABLET 1 tab PO BID CLEMASTINE FUMARATE 1.34 MG ORAL TABLET 824811 CLEMASTINE FUMARATE Inactive POLY-IRON 150 150 MG ORAL CAPSULE 1 tab po bid POLY-IRON 150 150 MG ORAL CAPSULE 402689 POLYSACCHARIDE IRON COMPLEX Inactive NYSTATIN 378041 UNIT/GM EXTERNAL CREAM apply to rash TID PRN 2015 NYSTATIN 640984 UNIT/GM EXTERNAL CREAM 407294 NYSTATIN Inactive AMIEKHL-EVMWBHPII-QNZR 167-83-8 MG ORAL TABLET 1 tab po daily AYWDVZB-GISCICZOP-CGSL 167-83-8 MG ORAL TABLET 53285067862 CALCIUM -MAGNESIUM-ZINC Inactive CHANTIX 1 MG ORAL TABLET 1 twice a day CHANTIX 1 MG ORAL TABLET VARENICLINE TARTRATE Inactive MS CONTIN 100 MG ORAL TABLET EXTENDED RELEASE 1 by mouth twice a day MS CONTIN 100 MG ORAL TABLET EXTENDED RELEASE MORPHINE SULFATE Inactive ENDOCET 10-325 MG ORAL TABLET 1 by mouth twice a day ENDOCET 10-325 MG ORAL TABLET 3618057 OXYCODONE-ACETAMINOPHEN Inactive HYDROXYZINE HCL 25 MG ORAL TABLET take 1 every 4-6 hours as needed HYDROXYZINE HCL 25 MG ORAL TABLET 777431 HYDROXYZINE HCL Inactive ALPRAZOLAM 2 MG ORAL TABLET 1 tablet by mouth three times daily as needed ALPRAZOLAM 2 MG ORAL TABLET 533308 ALPRAZOLAM Inactive NEXIUM 40 MG ORAL CAPSULE DELAYED RELEASE 1 cap by mouth daily NEXIUM 40 MG ORAL CAPSULE DELAYED RELEASE 122256 ESOMEPRAZOLE MAGNESIUM Inactive Advance Directives Directive Description [...] Measured Encounters Code Encounter Date Provider Facility CPT-56320 Level 4 Est. Patient 16:18:01 CDT Wily Gonzalez [facility] CPT-99490 Level 4 Est. Patient 16:17:36 CDT Wily Gonzalez [facility] CPT-29875 Level 4 Est. Patient 12:51:46 CDT Wily Gonzalez [facility] CPT-60681 Level 4 Est. Patient 10:10:03 CDT Wily Gonzalez [facility] CPT-63612 Level 3 Est. Patient 14:25:57 CDT Wily Gonzalez [facility] CPT-70185 Level 3 Est. Patient 09:51:37 ORNAMENTAL IRON ERECTOR Wily Gonzalez [facility] CPT-70076 Level 3 Est. Patient 11:07:[address] [facility] CPT-41560 Level 3 Est. Patient 11:24:24 CDT Wily W Carlos [facility] CPT-40211 Level 3 Est. Patient 15:19:54 ORNAMENTAL IRON ERECTOR Wily Gonzalez [facility] CPT-40695 Level 3 Est. Patient 10:04:45 CDT Wily Gonzalez DO [facility] CPT-15904 Level 3 Est. Patient 13:04:06 CDT Wily Gonzalez [facility] CPT-94687 Level 3 Est. Patient 12:23:04 CDT Wily Gonzalez [facility] CPT-80859 Level 3 Est. Patient 15:43:10 ORNAMENTAL IRON ERECTOR Wily Gonzalez [facility] CPT-80733 Level 3 Est. Patient 16:10:54 CDT Wily Gonzalez [facility] CPT-55577 Level 3 Est. Patient 19:50:51 CDT Wily Gonzalez [facility] CPT-64887 Level 3 Est. Patient 12:02:30 ORNAMENTAL IRON ERECTOR Wily Gonzalez [facility] CPT-00792 Level 3 Est. Patient 12:03:11 ORNAMENTAL IRON ERECTOR Wily Gonzalez [facility] CPT-63941 Level 3 Est. Patient 12:01:41 ORNAMENTAL IRON ERECTOR Wily Gonzalez [facility] CPT-40497 Level 3 Est. Patient 11:51:24 ORNAMENTAL IRON ERECTOR Wily Gonzalez [facility] CPT-05130 Level 3 Est. Patient 11:58:20 ORNAMENTAL IRON ERECTOR Wily Gonzalez [facility] CPT-04738 Level 3 Est. Patient 08:31:36 ORNAMENTAL IRON ERECTOR Wily Gonzalez [facility] CPT-04930 Level 3 Est. Patient 21:57:36 CDT Wily Gonzalez [facility] CPT-82654 Level 3 Est. Patient 10:49:58 CDT Esvin Hudson [facility] CPT-66031 Level 3 Est. Patient 11:22:52 CDT Esvin Hudson [facility] CPT-02392 Level 3 Est. Patient 13:49:41 CDT Esvin Hudson [facility] CPT-53292 Level 3 Est. Patient 11:54:53 CDT Esvin PAULA [facility] CPT-48506 Level 3 Est. Patient 09:07:11 CDT Esvin PAULA [facility] CPT-37733 Level 3 Est. Patient 13:52:47 CDT Esvin PAULA [facility] CPT-06142 Level 3 Est. Patient 11:26:46 CDT Esvin Hudson [facility] CPT-94208 Level 3 Est. Patient 10:25:00 ORNAMENTAL IRON ERECTOR Esvin Hudson [facility] CPT-17684 Level 3 Est. Patient 11:39:11 ORNAMENTAL IRON ERECTOR Esvin PAULA [facility] CPT-39560 Level 3 Est. Patient 13:24:24 ORNAMENTAL IRON ERECTOR Esvin Hudson [facility] CPT-31778 Level 3 Est. Patient 10:26:13 ORNAMENTAL IRON ERECTOR Esvin PAULA [facility] CPT-00164 Level 3 Est. Patient 10:21:21 CDT Esvin PAULA [facility] CPT-29194 Level 3 Est. Patient 10:26:30 CDT Esvin PAULA [facility] CPT-53045 Level 3 Est. Patient 09:16:37 CDT Esvin Hudson [facility]-78977 Level 3 Est. Patient 09:06:58 CDT Esvin Tristan [facility] CPT-95107 Level 3 Est. Patient 10:05:29 CDT Esvin Tristan [facility] CPT-00600 Level 3 Est. Patient 10:38:45 CDT Esvin Hudson [facility] CPT-59842 Level 3 Est. Patient 10:09:45 CDT Esvin Hudson [facility] CPT-02197 Level 3 Est. Patient 09:26:37 CDT Esvin Hudson [facility] CPT-77867 Level 3 Est. Patient 10:34:42 ORNAMENTAL IRON ERECTOR Esvin Hudson [facility] CPT-32761 Level 3 Est. Patient 10:45:47 ORNAMENTAL IRON ERECTOR Esvin Tristan [facility] CPT-57584 Level 3 Est. Patient 10:45:22 ORNAMENTAL IRON ERECTOR Esvin Hudson [facility] CPT-17908 Level 3 Est. Patient 14:18:30 ORNAMENTAL IRON ERECTOR Esvin Hudson [facility] CPT-39809 Level 3 Est. Patient 13:53:29 ORNAMENTAL IRON ERECTOR Esvin Hudson [facility] CPT-43908 Level 3 Est. Patient 10:34:11 CDT Esvin Hudson [facility] Procedures Code Procedure Name Date Entry Date Standard Description CPT-47979 Smoking Cessation counseling 10:10:03 CDT CPT-73610 Smoking Cessation counseling 14:25:57 CDT CPT-71643 Bone Density - XRAY USE ONLY 11:29:32 CDT CPT-74441 LS spine AP and Lat - XRAY USE ONLY 10:07:43 ORNAMENTAL IRON ERECTOR 10/26 CPT-47186 Venipuncture Draw Fee 09:51:16 ORNAMENTAL IRON ERECTOR CPT-32506 Smoking Cessation counseling 09:39:47 ORNAMENTAL IRON ERECTOR CPT-G0438 Initial Annual Wellness Exam 09:37:28 ORNAMENTAL IRON ERECTOR CPT-80572 Venipuncture Draw Fee 09:26:55 CDT CPT-39071 Venipuncture Draw Fee 11:55:52 CDT CPT-75877 Spec Collection and Handling Fee 09:16:37 CDT CPT-49806 Venipuncture Draw Fee 09:16:37 CDT
--- OUTSIDE RECORDS SUMMARY | 2018-02-26 14:41 | XMS REPORT | Clinical Summary ---
Author Author Admin, E Organization [facility] Address Unknown Phone Unavailable Allergies, Adverse Reactions, [...] health care facility HYPERTENSION ICD-401.9 Inactive Wily Vicente Gonzalez ANKLE [...] for up to 2 weeks TRIAMCINOLONE ACETONIDE 07309716080 Active Wily Gonzalez DO Active VGUZONS-[id number]-YHWF 167-83-8 MG TABS 1 tab po daily [id number] 75994475502 No Longer Active Wily Gonzalez DO Active NYSTATIN 264726 UNIT/GM CREA apply to rash TID PRN NYSTATIN 65874019576 No Longer Active Wily Gonzalez DO Active POLY-IRON 150 150 MG CAPS 1 tab po bid POLYSACCHARIDE IRON COMPLEX 91892129710 No Longer Active Wily Gonzalez DO Active FLONASE ALLERGY RELIEF 50 MCG/ACT NASAL SUSP 2 sprays each nostril every day FLUTICASONE PROPIONATE 05657438756 Active Wily Gonzalez DO Active CLEMASTINE FUMARATE 1.34 MG ORAL TABS 1 tab PO BID CLEMASTINE FUMARATE 27757267709 No Longer Active Wily Gonzalez DO Active FLOMAX 0.4 MG CAPS 1 capsule in the evening for night time urination. TAMSULOSIN HCL 49606166610 No Longer Active Wily Gonzalez DO Active PROTONIX 40 MG TBEC 1 po daily PANTOPRAZOLE SODIUM 45485378324 Active Agnieszka Yeung Active HYDROXYZINE HCL 25 MG TAB 1 two times a day as needed for anxiety HYDROXYZINE HCL 58622637584 No Longer Active Wily Gonzalez DO Active ANUSOL-HC 25 MG SUPPOSITORY 1 rectally every 12 hours for irritation HYDROCORTISONE NAEL (RECTAL) 66899624611 No Longer Active Wily Gonzalez DO Active HYDROXYZINE HCL 25 MG TABS Take one (1) tablet by mouth twice a day HYDROXYZINE HCL 66472727320 No Longer Active Wily Gonzalez DO Active ZIAC 2.5-6.25 MG TAB 1 tablet daily for high blood pressure 10/27 BISOPROLOL-HCTZ 29973571514 No Longer Active Wily Gonzalez DO Active ZIAC 2.5-6.25 MG TAB 1 tablet every morning for high blood pressure BISOPROLOL-HCTZ 88950750975 No Longer Active Wily Gonzalez DO Active AMOXICILLIN 500 MG CAPS Take one (1) tablet by mouth three times a day 05/05 AMOXICILLIN 85403682572 No Longer Active Wily Gonzalez DO Active MORPHINE SULFATE ER 100 MG CR-TABS Take one (1) tablet by mouth twice a day MORPHINE SULFATE 26487193763 No Longer Active Wily Gonzalez DO Active MORPHINE SULFATE ER 100 MG [id number] 1 capsule twice daily for chronic pain MORPHINE SULFATE 89048559663 Active Rose Bang Active CIALIS 10 MG TABS 1 every 72 hours as needed TADALAFIL 35152316131 No Longer Active Esvin PAULA Active FLONASE 50 MCG/ACT SUSP 2 SPRAY EACH NARE DAILY FLUTICASONE PROPIONATE 58809081413 No Longer Active Esvin PAULA Active CYCLOBENZAPRINE HCL 10 MG TABS Take one (1) tablet by mouth three times a day CYCLOBENZAPRINE HCL 34244669227 Active Agnieszka Yeung Active OPANA ER (CRUSH RESISTANT) 40 MG [id number]-UBB Take one (1) tablet by mouth twice a day OXYMORPHONE HCL 39765754961 No Longer Active Esvin PAULA Active PROAIR HFA 108 (90 BASE) MCG/ACT AERS 2 puffs every four hours as needed ALBUTEROL SULFATE 17295104361 No Longer Active Esvin PAULA Active CLEARLAX POWD 17gm q day prn constipation POLYETHYLENE GLYCOL 3350 31850495695 Active Kaylen Leigh MA Active MORPHINE SULFATE ER 100 MG AY99C-HWE Take one (1) tablet by mouth twice a day MORPHINE SULFATE 34144569004 No Longer Active Esvin PAULA Active FLEXERIL 10 MG TAB 1 tablet by mouth 3 times daily as needed CYCLOBENZAPRINE HCL 09860950649 No Longer Active Esvin PAULA Active CELEBREX 200 MG CAPS 1 tablet by mouth twice daily with meals CELECOXIB 51832792983 No Longer Active Esvin PAULA Active NEXIUM 40 MG CPDR 1 cap daily ESOMEPRAZOLE MAGNESIUM 00777546518 No Longer Active Esvin PAULA Active MOBIC 15 MG TABS 1 tab daily MELOXICAM 92719175817 No Longer Active Esvin PAULA Active LISINOPRIL 20 MG TABS Take 1 tablet by mouth daily LISINOPRIL 47038819904 No Longer Active Esvin PAULA Active DICLOFENAC SODIUM 50 MG TBEC 1 tablet by mouth four times daily DICLOFENAC SODIUM 63048346284 No Longer Active Paula Cooney RN Active VERAMYST 27.5 MCG/SPRAY SUSP 2 spray each nare daily FLUTICASONE FUROATE 21200517601 No Longer Active Megan Vargas RN Active ENDOCET 10-325 MG TABS Take one (1) tablet by mouth three times a day OXYCODONE-ACETAMINOPHEN 46422069325 Active Rose Bang Active ALPRAZOLAM 2 MG TABS Take one (1) tablet by mouth three times a day ALPRAZOLAM 96932697342 Active Rose Bang Active NEXIUM 40 MG CPDR 1 cap by mouth daily ESOMEPRAZOLE MAGNESIUM 11343483588 No Longer Active Esvin PAULA Active ALPRAZOLAM 2 MG TABS 1 tablet by mouth three times daily as needed ALPRAZOLAM 44998926088 No Longer Active Esvin PAULA Active HYDROXYZINE HCL 25 MG TAB take 1 every 4-6 hours as needed 07/01 HYDROXYZINE HCL 33419326665 No Longer Active Esvin PAULA Active ENDOCET 10-325 MG TABS 1 by mouth twice a day OXYCODONE-ACETAMINOPHEN 26466922433 No Longer Active Esvin PAULA Active MS CONTIN 100 MG GB36Q-XDK 1 by mouth twice a day MORPHINE SULFATE 88852213957 No Longer Active Esvin PAULA Active SUDAFED 30 MG TAB 1-2 every 4-6 hours as needed PSEUDOEPHEDRINE HCL 50492984445 Active Marylou Melissa RPT,RMA Active VERAMYST 27.5 MCG/SPRAY SUSP 2 spray each nare daily VERAMYST 27.5 MCG/SPRAY SUSP FLUTICASONE FUROATE Inactive DICLOFENAC SODIUM 50 MG TBEC 1 tablet by mouth four times daily DICLOFENAC SODIUM 50 MG TBEC 974298 DICLOFENAC SODIUM Inactive LISINOPRIL 20 MG TABS Take 1 tablet by mouth daily LISINOPRIL 20 MG TABS 273844 LISINOPRIL Inactive MOBIC 15 MG TABS 1 tab daily MOBIC 15 MG TABS 583532 MELOXICAM Inactive NEXIUM 40 MG CPDR 1 cap daily NEXIUM 40 MG CPDR 639779 ESOMEPRAZOLE MAGNESIUM Inactive CELEBREX 200 MG CAPS 1 tablet by mouth twice daily with meals CELEBREX 200 MG CAPS 284935 CELECOXIB Inactive FLEXERIL 10 MG TAB 1 [...] a day 05/05 AMOXICILLIN 500 MG CAPS 571475 AMOXICILLIN Inactive ZIAC 2.5-6.25 MG TAB 1 tablet every morning for high blood pressure ZIAC 2.5-6.25 MG TAB 602951 BISOPROLOL-HCTZ Inactive ZIAC 2.5-6.25 MG TAB 1 tablet daily for high blood pressure 10/27 ZIAC 2.5-6.25 MG TAB 739537 BISOPROLOL-HCTZ Inactive HYDROXYZINE HCL 25 MG TABS Take one (1) tablet by mouth twice a day HYDROXYZINE HCL 25 MG TABS 591958 HYDROXYZINE HCL Inactive ANUSOL-HC 25 MG SUPPOSITORY 1 rectally every 12 hours for irritation ANUSOL-HC 25 MG SUPPOSITORY 3795714 HYDROCORTISONE NAEL (RECTAL ) Inactive HYDROXYZINE HCL 25 MG TAB 1 two times a day as needed for anxiety HYDROXYZINE HCL 25 MG TAB 374798 HYDROXYZINE HCL Inactive FLOMAX 0.4 MG CAPS 1 capsule in the evening for night time urination. FLOMAX 0.4 MG CAPS 406820 TAMSULOSIN HCL Inactive CLEMASTINE FUMARATE 1.34 MG ORAL TABS 1 tab PO BID CLEMASTINE FUMARATE 1.34 MG ORAL TABS 781614 CLEMASTINE FUMARATE Inactive POLY-IRON 150 150 MG CAPS 1 tab po bid POLY-IRON 150 150 MG CAPS POLYSACCHARIDE IRON COMPLEX Inactive NYSTATIN 397086 UNIT/GM CREA apply to rash TID PRN NYSTATIN 919505 UNIT/GM CREA 813053 NYSTATIN Inactive [id number]-AXHVWKPBI-COES 167-83-8 MG TABS 1 tab po daily [id number]-EZWM 167-83-8 MG TABS AMGDWUM-QJBIJLEVY-ZZFM Inactive MS CONTIN 100 MG NJ27H-MWB 1 by mouth twice a day MS CONTIN 100 MG [id number]-SDT MORPHINE SULFATE Inactive ENDOCET 10-325 MG TABS 1 by mouth twice a day ENDOCET 10-325 MG TABS 2837019 OXYCODONE-ACETAMINOPHEN Inactive HYDROXYZINE HCL 25 MG TAB take 1 every 4-6 hours as needed 07/01 HYDROXYZINE HCL 25 MG TAB 935008 HYDROXYZINE HCL Inactive ALPRAZOLAM 2 MG TABS 1 tablet by mouth three times daily as needed ALPRAZOLAM 2 MG TABS 582302 ALPRAZOLAM Inactive NEXIUM 40 MG CPDR 1 cap by mouth daily NEXIUM 40 MG CPDR 848520 ESOMEPRAZOLE MAGNESIUM Inactive Advance Directives Directive Description [...] ... - Chemistry sodium, serum 140 mmol/L 788-497 0291/03/25 carbon dioxide, venous blood 31.3 mmol/L 21.0-32.0 potassium, serum 4.0 mmol/L 3.5-5.2 chloride, serum 101 mmol/L 98-107 blood glucose 96 mg/dL 65-110 urea nitrogen, blood 7 mg/dL 7-18 creatinine, serum 0.94 mg/dL 0.55-1.30 alanine aminotransferase (SGPT), serum 23 U/L 12-78 aspartate aminotransferase (SGOT), serum 21 U/L 15-37 calcium, serum 8.9 mg/dL 8.5-10.1 bilirubin, serum, total 0.30 mg/dL 0.00-1.00 cholesterol, serum 169 mg/dL 678-331 1689/03/25 triglyceride, serum, fasting 143 mg/dL 30-200 HDL [...] 5.0-8.5 Encounters Code Encounter Date Provider Facility CPT-35851 Level 3 Est. Patient 11:07:48 CDT Wily Zhang [facility] CPT-15976 Level 3 Est. Patient 11:24:24 CDT Wily W Carlos [facility] CPT-88275 Level 3 Est. Patient 15:19:54 BUSINESS UNIT MANAGER Wily Gonzalez [facility] CPT-28377 Level 3 Est. Patient 10:04:45 CDT Wily Gonzalez [facility] CPT-37670 Level 3 Est. Patient 13:04:06 CDT Wily Gonzalez [facility] CPT-48382 Level 3 Est. Patient 12:23:04 CDT Wily Gonzalez [facility] CPT-40646 Level 3 Est. Patient 15:43:10 BUSINESS UNIT MANAGER Wily Gonzalez [facility] CPT-21426 Level 3 Est. Patient 16:10:54 CDT Wily Gonzalez [facility] CPT-87108 Level 3 Est. Patient 19:50:51 CDT Wily Gonzalez [facility] CPT-46134 Level 3 Est. Patient 12:02:30 BUSINESS UNIT MANAGER Wily Gonzalez [facility] CPT-07245 Level 3 Est. Patient 12:03:11 BUSINESS UNIT MANAGER Wily Gonzalez [facility] CPT-65627 Level 3 Est. Patient 12:01:41 BUSINESS UNIT MANAGER Wily Gonzalez [facility] CPT-13178 Level 3 Est. Patient 11:51:24 BUSINESS UNIT MANAGER Wily Gonzalez [facility] CPT-98095 Level 3 Est. Patient 11:58:20 BUSINESS UNIT MANAGER Wily Gonzalez [facility] CPT-48217 Level 3 Est. Patient 08:31:36 BUSINESS UNIT MANAGER Wily Gonzalez [facility] CPT-68554 Level 3 Est. Patient 21:57:36 CDT Wily Gonzalez [facility] CPT-95571 Level 3 Est. Patient 10:49:58 CDT Esvin Hudson [facility] CPT-42199 Level 3 Est. Patient 11:22:52 CDT Esvin Hudson [facility] CPT-36239 Level 3 Est. Patient 13:49:41 CDT Esvin Hudson [facility] CPT-36749 Level 3 Est. Patient 11:54:53 CDT Esvin PAULA [facility] CPT-46909 Level 3 Est. Patient 09:07:11 CDT Esvin PAULA [facility] CPT-99459 Level 3 Est. Patient 13:52:47 CDT Esvin Hudson [facility] CPT-27322 Level 3 Est. Patient 11:26:46 CDT Esvin Hudson [facility] CPT-49811 Level 3 Est. Patient 10:25:00 BUSINESS UNIT MANAGER Esvin Hudson [facility] CPT-12042 Level 3 Est. Patient 11:39:11 BUSINESS UNIT MANAGER Esvin PAULA [facility] CPT-65995 Level 3 Est. Patient 13:24:24 BUSINESS UNIT MANAGER Esvin Hudson [facility] CPT-75677 Level 3 Est. Patient 10:26:13 BUSINESS UNIT MANAGER Esvin PAULA [facility] CPT-29651 Level 3 Est. Patient 10:21:21 CDT Esvin Hudson [facility] CPT-85193 Level 3 Est. Patient 10:26:30 CDT Esvin PAULA [facility] CPT-64000 Level 3 Est. Patient 09:16:37 CDT Esvin Hudson [facility]-01492 Level 3 Est. Patient 09:06:58 CDT Esvin Tristan [facility] CPT-55845 Level 3 Est. Patient 10:05:29 CDT Esvin Hudson [facility] CPT-17246 Level 3 Est. Patient 10:38:45 CDT Esvin PAULA [facility] CPT-07372 Level 3 Est. Patient 10:09:45 CDT Esvin Tristan [facility] CPT-53469 Level 3 Est. Patient 09:26:37 CDT Esvin Tristan [facility] CPT-69245 Level 3 Est. Patient 10:34:42 BUSINESS UNIT MANAGER Esvin Hudson [facility] CPT-05306 Level 3 Est. Patient 10:45:47 BUSINESS UNIT MANAGER Esvin Hudson [facility] CPT-29363 Level 3 Est. Patient 10:45:22 BUSINESS UNIT MANAGER Esvin Hudson [facility] CPT-49346 Level 3 Est. Patient 14:18:30 BUSINESS UNIT MANAGER Esvin Hudson [facility] CPT-43154 Level 3 Est. Patient 13:53:29 BUSINESS UNIT MANAGER Esvin Hudson [facility] CPT-67666 Level 3 Est. Patient 10:34:11 CDT Esvin Hudson [facility] Procedures Code Procedure Name Date Entry Date Standard Description CPT-50601 Venipuncture Draw Fee 09:26:55 CDT CPT-64114 Venipuncture Draw Fee 11:55:52 CDT CPT-07602 Spec Collection and Handling Fee 09:16:37 CDT CPT-92988 Venipuncture Draw Fee 09:16:37 CDT
--- OUTSIDE RECORDS SUMMARY | 2018-02-26 14:42 | XMS REPORT | Clinical Summary ---
Author Author Admin, E Organization [employer] Address Unknown Phone Unavailable Allergies, Adverse Reactions, [...] TABS 1 twice a day VARENICLINE TARTRATE [id number] No Longer Active Wily Gonzalez DO Active RAUL-MAG 500-250 MG ORAL TABS Take one by mouth daily CALCIUM- MAGNESIUM 66604167179 Active Wily Gonzalez DO Active FOSAMAX 70 MG TABS 1 po qweek. Take 30min prior to first food/drink. Avoid lying down x 1 hour. ALENDRONATE SODIUM 30202240208 Active Rose Bang Active CALCIUM 600 MG ORAL TABS 1 po q day CALCIUM 00869610086 Active Rose Bang Active TRIAMCINOLONE ACETONIDE 0.1 % CREA Apply to affected area 3 times daily for up to 2 weeks TRIAMCINOLONE ACETONIDE 59343652647 Active Wily Gonzalez DO Active [id number] 167-83-8 MG TABS 1 tab po daily [id number] 15950969610 No Longer Active Wily Gonzalez DO Active NYSTATIN 822211 UNIT/GM CREA apply to rash TID PRN NYSTATIN 67321368004 No Longer Active Wily Gonzalez DO Active POLY-IRON 150 150 MG CAPS 1 tab po bid POLYSACCHARIDE IRON COMPLEX 82738679163 No Longer Active Wily Gonzalez DO Active FLONASE ALLERGY RELIEF 50 MCG/ACT NASAL SUSP 2 sprays each nostril every day FLUTICASONE PROPIONATE 44370714233 Active Rose Bang Active CLEMASTINE FUMARATE 1.34 MG ORAL TABS 1 tab PO BID CLEMASTINE FUMARATE 22514850324 No Longer Active Wily Gonzalez DO Active FLOMAX 0.4 MG CAPS 1 capsule in the evening for night time urination. TAMSULOSIN HCL 52048085672 No Longer Active Wily Gonzalez DO Active PROTONIX 40 MG TBEC 1 po daily PANTOPRAZOLE SODIUM 68576926991 Active Lisa Berkowitz Active HYDROXYZINE HCL 25 MG TAB 1 two times a day as needed for anxiety HYDROXYZINE HCL 77076130152 No Longer Active Wily Gonzalez DO Active ANUSOL-HC 25 MG SUPPOSITORY 1 rectally every 12 hours for irritation HYDROCORTISONE NAEL (RECTAL) 82267173312 No Longer Active Wily Gonzalez DO Active HYDROXYZINE HCL 25 MG TABS Take one (1) tablet by mouth twice a day HYDROXYZINE HCL 66998527094 No Longer Active Wily Gonzalez DO Active ZIAC 2.5-6.25 MG TAB 1 tablet daily for high blood pressure 10/27 BISOPROLOL-HCTZ 11788267508 No Longer Active Wily Gonzalez DO Active ZIAC 2.5-6.25 MG TAB 1 tablet every morning for high blood pressure BISOPROLOL-HCTZ 38954969893 No Longer Active Wily Gonzalez DO Active AMOXICILLIN 500 MG CAPS Take one (1) tablet by mouth three times a day 05/05 AMOXICILLIN 42356115261 No Longer Active Wily Gonzalze DO Active MORPHINE SULFATE ER 100 MG CR-TABS Take one (1) tablet by mouth twice a day MORPHINE SULFATE 20673826373 No Longer Active Wily Gonzalez DO Active MORPHINE SULFATE ER 100 MG [id number] 1 capsule twice daily for chronic pain MORPHINE SULFATE 16977739298 Active Wily Gonzalez DO Active CIALIS 10 MG TABS 1 every 72 hours as needed TADALAFIL 68428655452 No Longer Active Esvin PAULA Active FLONASE 50 MCG/ACT SUSP 2 SPRAY EACH NARE DAILY FLUTICASONE PROPIONATE 20524637685 No Longer Active Esvin PAULA Active CYCLOBENZAPRINE HCL 10 MG TABS Take one (1) tablet by mouth three times a day CYCLOBENZAPRINE HCL 04644775450 Active Lisa Berkowitz Active OPANA ER (CRUSH RESISTANT) 40 MG [id number] Take one (1) tablet by mouth twice a day OXYMORPHONE HCL 01590551491 No Longer Active Esvin PAULA Active PROAIR HFA 108 (90 BASE) MCG/ACT AERS 2 puffs every four hours as needed ALBUTEROL SULFATE 86431764814 No Longer Active Esvin PAULA Active CLEARLAX POWD 17gm q day prn constipation POLYETHYLENE GLYCOL 3350 21197703275 Active Wily Gonzalez DO Active MORPHINE SULFATE ER 100 MG [id number] Take one (1) tablet by mouth twice a day MORPHINE SULFATE 56496366929 No Longer Active Esvin PAULA Active FLEXERIL 10 MG TAB 1 tablet by mouth 3 times daily as needed CYCLOBENZAPRINE HCL 68582277398 No Longer Active Esvin PAULA Active CELEBREX 200 MG CAPS 1 tablet by mouth twice daily with meals CELECOXIB 44773560309 No Longer Active Esvin PAULA Active NEXIUM 40 MG CPDR 1 cap daily ESOMEPRAZOLE MAGNESIUM 17951243518 No Longer Active Esvin PAULA Active MOBIC 15 MG TABS 1 tab daily MELOXICAM 70107212491 No Longer Active Esvin PAULA Active LISINOPRIL 20 MG TABS Take 1 tablet by mouth daily LISINOPRIL 56944833807 No Longer Active Esvin PAULA Active DICLOFENAC SODIUM 50 MG TBEC 1 tablet by mouth four times daily DICLOFENAC SODIUM 02395989490 No Longer Active Paula Cooney RN Active VERAMYST 27.5 MCG/SPRAY SUSP 2 spray each nare daily FLUTICASONE FUROATE 72257475823 No Longer Active Megan Vargas RN Active ENDOCET 10-325 MG TABS Take one (1) tablet by mouth three times a day OXYCODONE-ACETAMINOPHEN 45045736621 Active Wily Gonzalez DO Active ALPRAZOLAM 2 MG TABS Take one (1) tablet by mouth three times a day ALPRAZOLAM 79154716662 Active Rose Bang Active NEXIUM 40 MG CPDR 1 cap by mouth daily ESOMEPRAZOLE MAGNESIUM 71477832016 No Longer Active Esvin PAULA Active ALPRAZOLAM 2 MG TABS 1 tablet by mouth three times daily as needed ALPRAZOLAM 02519487810 No Longer Active Esvin PAULA Active HYDROXYZINE HCL 25 MG TAB take 1 every 4-6 hours as needed 07/01 HYDROXYZINE HCL 99994705190 No Longer Active Esvin PAULA Active ENDOCET 10-325 MG TABS 1 by mouth twice a day OXYCODONE-ACETAMINOPHEN 04082408731 No Longer Active Esvin PAULA Active MS CONTIN 100 MG [id number] 1 by mouth twice a day MORPHINE SULFATE 31317513174 No Longer Active Esvin PAULA Active SUDAFED 30 MG TAB 1-2 every 4-6 hours as needed PSEUDOEPHEDRINE HCL 54648863205 Active Lisa Berkowitz Active ALPRAZOLAM 2 MG TABS 1 tablet by mouth three times daily as needed ALPRAZOLAM 2 MG TABS 163574 ALPRAZOLAM Inactive AMOXICILLIN 500 MG CAPS Take one (1) tablet by mouth three times a day 05/05 AMOXICILLIN 500 MG CAPS 477858 AMOXICILLIN Inactive ANUSOL-HC 25 MG SUPPOSITORY 1 rectally every 12 hours for irritation ANUSOL-HC 25 MG SUPPOSITORY 2261383 HYDROCORTISONE NAEL (RECTAL ) Inactive CLEMASTINE FUMARATE 1.34 MG ORAL TABS 1 tab PO BID CLEMASTINE FUMARATE 1.34 MG ORAL TABS 648590 CLEMASTINE FUMARATE Inactive FLEXERIL 10 MG TAB 1 tablet by mouth 3 times daily as needed FLEXERIL 10 MG TAB CYCLOBENZAPRINE HCL Inactive HYDROXYZINE HCL 25 MG TAB 1 two times a day as needed for anxiety HYDROXYZINE HCL 25 MG TAB 775253 HYDROXYZINE HCL Inactive HYDROXYZINE HCL 25 MG TABS Take one (1) tablet by mouth twice a day HYDROXYZINE HCL 25 MG TABS 933070 HYDROXYZINE HCL Inactive HYDROXYZINE HCL 25 MG TAB take 1 every 4-6 hours as needed 07/01 HYDROXYZINE HCL 25 MG TAB 561128 HYDROXYZINE HCL Inactive LISINOPRIL 20 MG TABS Take 1 tablet by mouth daily LISINOPRIL 20 MG TABS 979629 LISINOPRIL Inactive NYSTATIN 758698 UNIT/GM CREA apply to rash TID PRN NYSTATIN 066510 UNIT/GM CREA 781323 NYSTATIN Inactive DICLOFENAC SODIUM 50 MG TBEC 1 tablet by mouth four times daily DICLOFENAC SODIUM 50 MG TBEC 581242 DICLOFENAC SODIUM Inactive ZIAC 2.5-6.25 MG TAB 1 tablet every morning for high blood pressure ZIAC 2.5-6.25 MG TAB 499759 BISOPROLOL-HCTZ Inactive ZIAC 2.5-6.25 MG TAB 1 tablet daily for high blood pressure 10/27 ZIAC 2.5-6.25 MG TAB 809115 BISOPROLOL-HCTZ Inactive CELEBREX 200 MG CAPS 1 tablet by mouth twice daily with meals CELEBREX 200 MG CAPS 252309 CELECOXIB Inactive MOBIC 15 MG TABS 1 tab daily MOBIC 15 MG TABS 796627 MELOXICAM Inactive NEXIUM 40 MG CPDR 1 cap daily NEXIUM 40 MG CPDR 014985 ESOMEPRAZOLE MAGNESIUM Inactive NEXIUM 40 MG CPDR 1 cap by mouth daily NEXIUM 40 MG CPDR 971798 ESOMEPRAZOLE MAGNESIUM Inactive FLONASE 50 MCG/ACT SUSP 2 SPRAY EACH NARE DAILY FLONASE 50 MCG/ACT SUSP 8019093 FLUTICASONE PROPIONATE Inactive POLY-IRON 150 150 MG CAPS 1 tab po bid POLY-IRON 150 150 MG CAPS 296319 POLYSACCHARIDE IRON COMPLEX Inactive ENDOCET 10-325 MG TABS 1 by mouth twice a day ENDOCET 10-325 MG TABS 0035648 OXYCODONE-ACETAMINOPHEN Inactive CIALIS 10 MG TABS 1 every 72 hours as needed CIALIS 10 MG TABS TADALAFIL Inactive CHANTIX 1 MG TABS 1 twice a day CHANTIX 1 MG TABS VARENICLINE TARTRATE Inactive PROAIR HFA 108 (90 BASE) MCG/ACT AERS 2 puffs every four hours as needed PROAIR HFA 108 (90 BASE) MCG/ACT AERS ALBUTEROL SULFATE Inactive [id number] 167-83-8 MG TABS 1 tab po daily [id number] 167-83-8 MG TABS 29082061476 CALCIUM-MAGNESIUM- ZINC Inactive VERAMYST 27.5 MCG/SPRAY SUSP 2 spray each nare daily VERAMYST 27.5 MCG/SPRAY SUSP FLUTICASONE FUROATE Inactive FLOMAX 0.4 MG CAPS 1 capsule in the evening for night time urination. FLOMAX 0.4 MG CAPS 130192 TAMSULOSIN HCL Inactive MORPHINE SULFATE ER 100 MG CR-TABS Take one (1) tablet by mouth twice a day MORPHINE SULFATE ER 100 MG CR-TABS MORPHINE SULFATE Inactive MS CONTIN 100 MG [id number] 1 by mouth twice a day MS CONTIN 100 MG [id number] MORPHINE SULFATE Inactive Advance Directives Directive Description [...] Measured Encounters Code Encounter Date Provider Facility CPT-48983 Level 4 Est. Patient 12:51:46 CDT Wily Gonzalez [facility] CPT-23959 Level 4 Est. Patient 10:10:03 CDT Wily Gonzalez [facility] CPT-39606 Level 3 Est. Patient 14:25:57 CDT Wily Gonzalez [facility] CPT-94528 Level 3 Est. Patient 09:51:37 [employer] Wily Gonzalez [facility] CPT-79658 Level 3 Est. Patient 11:07:48 CDT Wily Gonzalez [facility] CPT-77796 Level 3 Est. Patient 11:24:24 CDT Wily Gonzalez [facility] CPT-48297 Level 3 Est. Patient 15:19:54 [employer] Wily Gonzalez [facility] CPT-46787 Level 3 Est. Patient 10:04:45 CDT Wily W [facility] CPT-92960 Level 3 Est. Patient 13:04:06 CDT Wily [facility] CPT-20760 Level 3 Est. Patient 12:23:04 CDT Wily [facility] CPT-58364 Level 3 Est. Patient 15:43:10 [employer] Wily [facility] CPT-64000 Level 3 Est. Patient 16:10:54 CDT Wily [facility] CPT-65114 Level 3 Est. Patient 19:50:51 CDT Wily [facility] CPT-54025 Level 3 Est. Patient 12:02:30 [employer] Wily [facility] CPT-70023 Level 3 Est. Patient 12:03:11 [employer] Wily [facility] CPT-33751 Level 3 Est. Patient 12:01:41 [employer] Wily [facility] CPT-35143 Level 3 Est. Patient 11:51:24 [employer] Wily [facility] CPT-34639 Level 3 Est. Patient 11:58:20 [employer] Wily [facility] CPT-92008 Level 3 Est. Patient 08:31:36 [employer] Wily [facility] CPT-13156 Level 3 Est. Patient 21:57:36 CDT Wily [facility] CPT-11348 Level 3 Est. Patient 10:49:58 CDT Esvin PAULA [facility] CPT-49503 Level 3 Est. Patient 11:22:52 CDT Esvin PAULA [facility] CPT-78040 Level 3 Est. Patient 13:49:41 CDT Esvin PAULA [facility] CPT-56716 Level 3 Est. Patient 11:54:53 CDT Esvin Hudson [facility] CPT-33347 Level 3 Est. Patient 09:07:11 CDT Esvin Hudson [facility] CPT-60793 Level 3 Est. Patient 13:52:47 CDT Esvin Hudson [facility] CPT-71199 Level 3 Est. Patient 11:26:46 CDT Esvin Hudson [facility] CPT-38180 Level 3 Est. Patient 10:25:00 [employer] Esvin Hudson [facility] CPT-39087 Level 3 Est. Patient 11:39:11 [employer] Esvin Hudson [facility] CPT-14452 Level 3 Est. Patient 13:24:24 [employer] Esvin Hudson [facility] CPT-04387 Level 3 Est. Patient 10:26:13 [employer] Esvin Hudson [facility] CPT-34461 Level 3 Est. Patient 10:21:21 CDT Esvin Hudson [facility] CPT-34312 Level 3 Est. Patient 10:26:30 CDT Esvin Hudson [facility] CPT-06870 Level 3 Est. Patient 09:16:37 CDT Esvin Hudson [facility]-07174 Level 3 Est. Patient 09:06:58 CDT Esvin Hudson [facility] CPT-62544 Level 3 Est. Patient 10:05:29 CDT Esvin Tristan [facility] CPT-33944 Level 3 Est. Patient 10:38:45 CDT Esvin Tristan PA [facility] CPT-13919 Level 3 Est. Patient 10:09:45 CDT Esvin Hudson [facility] CPT-10852 Level 3 Est. Patient 09:26:37 CDT Esvin PAULA [facility] CPT-99468 Level 3 Est. Patient 10:34:42 [employer] Esvin Hudson [facility] CPT-34107 Level 3 Est. Patient 10:45:47 [employer] Esvin Hudson [facility] CPT-16071 Level 3 Est. Patient 10:45:22 [employer] Esvin Hudson [facility] CPT-75785 Level 3 Est. Patient 14:18:30 [employer] Esvin Hudson [facility] CPT-28827 Level 3 Est. Patient 13:53:29 [employer] Esvin Ballantine [facility] CPT-51450 Level 3 Est. Patient 10:34:11 CDT Esvin Hudson [facility] Procedures Code Procedure Name Date Entry Date Standard Description CPT-70480 Smoking Cessation counseling 10:10:03 CDT CPT-37625 Smoking Cessation counseling 14:25:57 CDT CPT-07628 Bone Density - XRAY USE ONLY 11:29:32 CDT CPT-66648 LS spine AP and Lat - XRAY USE ONLY 10:07:43 [employer] 10/26 CPT-08857 Venipuncture Draw Fee 09:51:16 [employer] CPT-54103 Smoking Cessation counseling 09:39:47 [employer] CPT-G0438 Initial Annual Wellness Exam 09:37:28 [employer] CPT-53933 Venipuncture Draw Fee 09:26:55 CDT CPT-27763 Venipuncture Draw Fee 11:55:52 CDT CPT-03695 Spec Collection and Handling Fee 09:16:37 CDT CPT-13953 Venipuncture Draw Fee 09:16:37 CDT
--- OUTSIDE RECORDS SUMMARY | 2018-02-26 14:43 | XMS REPORT | Clinical Summary ---
Author Author Admin, E Organization [employer] Address Unknown Phone Unavailable Allergies, Adverse Reactions, [...] TABS 1 twice a day VARENICLINE TARTRATE [id number] No Longer Active Wily Gonzalez DO Active RAUL-MAG 500-250 MG ORAL TABS Take one by mouth daily CALCIUM- MAGNESIUM 77667314917 Active Wily Gonzalez DO Active FOSAMAX 70 MG TABS 1 po qweek. Take 30min prior to first food/drink. Avoid lying down x 1 hour. ALENDRONATE SODIUM 88782145320 Active Rose Bang Active CALCIUM 600 MG ORAL TABS 1 po q day CALCIUM 79959491150 Active Rose Bang Active TRIAMCINOLONE ACETONIDE 0.1 % CREA Apply to affected area 3 times daily for up to 2 weeks TRIAMCINOLONE ACETONIDE 96363768130 Active Wily Gonzalez DO Active [id number]-QMZW 167-83-8 MG TABS 1 tab po daily [id number]-ENSNUNJWD-CZDP 59687053642 No Longer Active Wily Gonzalez DO Active NYSTATIN 032513 UNIT/GM CREA apply to rash TID PRN NYSTATIN 24699489720 No Longer Active Wily Gonzalez DO Active POLY-IRON 150 150 MG CAPS 1 tab po bid POLYSACCHARIDE IRON COMPLEX 56272680111 No Longer Active Wily Gonzalez DO Active FLONASE ALLERGY RELIEF 50 MCG/ACT NASAL SUSP 2 sprays each nostril every day FLUTICASONE PROPIONATE 86466325777 Active Rose Bang Active CLEMASTINE FUMARATE 1.34 MG ORAL TABS 1 tab PO BID CLEMASTINE FUMARATE 32241477018 No Longer Active Wily Gonzalez DO Active FLOMAX 0.4 MG CAPS 1 capsule in the evening for night time urination. TAMSULOSIN HCL 12320542037 No Longer Active Wily Gonzalez DO Active PROTONIX 40 MG TBEC 1 po daily PANTOPRAZOLE SODIUM 02939488337 Active Lisa Berkowitz Active HYDROXYZINE HCL 25 MG TAB 1 two times a day as needed for anxiety HYDROXYZINE HCL 05533320055 No Longer Active Wily Gonzalez DO Active ANUSOL-HC 25 MG SUPPOSITORY 1 rectally every 12 hours for irritation HYDROCORTISONE NAEL (RECTAL) 80433583320 No Longer Active Wily Gonzalez DO Active HYDROXYZINE HCL 25 MG TABS Take one (1) tablet by mouth twice a day HYDROXYZINE HCL 67046987860 No Longer Active Wily Gonzalez DO Active ZIAC 2.5-6.25 MG TAB 1 tablet daily for high blood pressure 10/27 BISOPROLOL-HCTZ 14806951389 No Longer Active Wily Gonzalez DO Active ZIAC 2.5-6.25 MG TAB 1 tablet every morning for high blood pressure BISOPROLOL-HCTZ 39138478033 No Longer Active Wily Gonzalez DO Active AMOXICILLIN 500 MG CAPS Take one (1) tablet by mouth three times a day 05/05 AMOXICILLIN 40226767065 No Longer Active Wily Gonzalez DO Active MORPHINE SULFATE ER 100 MG CR-TABS Take one (1) tablet by mouth twice a day MORPHINE SULFATE 80662741698 No Longer Active Wily Gonzalez DO Active MORPHINE SULFATE ER 100 MG [id number]-[id number] 1 capsule twice daily for chronic pain MORPHINE SULFATE 83936415657 Active Wily Gonzalez DO Active CIALIS 10 MG TABS 1 every 72 hours as needed TADALAFIL 60033387162 No Longer Active Esvin PAULA Active FLONASE 50 MCG/ACT SUSP 2 SPRAY EACH NARE DAILY FLUTICASONE PROPIONATE 74010367481 No Longer Active Esvin PAULA Active CYCLOBENZAPRINE HCL 10 MG TABS Take one (1) tablet by mouth three times a day CYCLOBENZAPRINE HCL 73880334016 Active Lisa Berkowitz Active OPANA ER (CRUSH RESISTANT) 40 MG [id number] Take one (1) tablet by mouth twice a day OXYMORPHONE HCL 86327580576 No Longer Active Esvin PAULA Active PROAIR HFA 108 (90 BASE) MCG/ACT AERS 2 puffs every four hours as needed ALBUTEROL SULFATE 87473840766 No Longer Active Esvin PAULA Active CLEARLAX POWD 17gm q day prn constipation POLYETHYLENE GLYCOL 3350 33981376865 Active Wily Gonzalez DO Active MORPHINE SULFATE ER 100 MG IP66T-LSV Take one (1) tablet by mouth twice a day MORPHINE SULFATE 72413528744 No Longer Active Esvin PAULA Active FLEXERIL 10 MG TAB 1 tablet by mouth 3 times daily as needed CYCLOBENZAPRINE HCL 48136505688 No Longer Active Esvin PAULA Active CELEBREX 200 MG CAPS 1 tablet by mouth twice daily with meals CELECOXIB 20975046694 No Longer Active Esvin PAULA Active NEXIUM 40 MG CPDR 1 cap daily ESOMEPRAZOLE MAGNESIUM 27807366840 No Longer Active Esvin PAULA Active MOBIC 15 MG TABS 1 tab daily MELOXICAM 76540676020 No Longer Active Esvin PAULA Active LISINOPRIL 20 MG TABS Take 1 tablet by mouth daily LISINOPRIL 97079282284 No Longer Active Esvin PAULA Active DICLOFENAC SODIUM 50 MG TBEC 1 tablet by mouth four times daily DICLOFENAC SODIUM 44668411098 No Longer Active Paula Cooney RN Active VERAMYST 27.5 MCG/SPRAY SUSP 2 spray each nare daily FLUTICASONE FUROATE 82457874767 No Longer Active Megan Vargas RN Active ENDOCET 10-325 MG TABS Take one (1) tablet by mouth three times a day OXYCODONE-ACETAMINOPHEN 57209733169 Active Wily Gonzalez DO Active ALPRAZOLAM 2 MG TABS Take one (1) tablet by mouth three times a day ALPRAZOLAM 18880116146 Active Rose Bang Active NEXIUM 40 MG CPDR 1 cap by mouth daily ESOMEPRAZOLE MAGNESIUM 30551000926 No Longer Active Esvin PAULA Active ALPRAZOLAM 2 MG TABS 1 tablet by mouth three times daily as needed ALPRAZOLAM 92941361354 No Longer Active Esvin PAULA Active HYDROXYZINE HCL 25 MG TAB take 1 every 4-6 hours as needed 07/01 HYDROXYZINE HCL 66644054842 No Longer Active Esvin PAULA Active ENDOCET 10-325 MG TABS 1 by mouth twice a day OXYCODONE-ACETAMINOPHEN 36804652061 No Longer Active Esvin PAULA Active MS CONTIN 100 MG IR39Q-NBC 1 by mouth twice a day MORPHINE SULFATE 92385385673 No Longer Active Esvin PAULA Active SUDAFED 30 MG TAB 1-2 every 4-6 hours as needed PSEUDOEPHEDRINE HCL 38264854472 Active Lisa Berkowitz Active VERAMYST 27.5 MCG/SPRAY SUSP 2 spray each nare daily VERAMYST 27.5 MCG/SPRAY SUSP FLUTICASONE FUROATE Inactive DICLOFENAC SODIUM 50 MG TBEC 1 tablet by mouth four times daily DICLOFENAC SODIUM 50 MG TBEC 947211 DICLOFENAC SODIUM Inactive LISINOPRIL 20 MG TABS Take 1 tablet by mouth daily LISINOPRIL 20 MG TABS 740297 LISINOPRIL Inactive MOBIC 15 MG TABS 1 tab daily MOBIC 15 MG TABS 360027 MELOXICAM Inactive NEXIUM 40 MG CPDR 1 cap daily NEXIUM 40 MG CPDR 679625 ESOMEPRAZOLE MAGNESIUM Inactive CELEBREX 200 MG CAPS 1 tablet by mouth twice daily with meals CELEBREX 200 MG CAPS 218639 CELECOXIB Inactive FLEXERIL 10 MG TAB 1 tablet by mouth 3 times daily as needed FLEXERIL 10 MG TAB CYCLOBENZAPRINE HCL Inactive PROAIR HFA 108 (90 BASE) MCG/ACT AERS 2 puffs every four hours as needed PROAIR HFA 108 (90 BASE) MCG/ACT AERS ALBUTEROL SULFATE Inactive FLONASE 50 MCG/ACT SUSP 2 SPRAY EACH NARE DAILY FLONASE 50 MCG/ACT SUSP 9759871 FLUTICASONE PROPIONATE Inactive CIALIS 10 MG TABS 1 every 72 hours as needed CIALIS 10 MG TABS TADALAFIL Inactive MORPHINE SULFATE ER 100 MG CR-TABS Take one (1) tablet by mouth twice a day MORPHINE SULFATE ER 100 MG CR-TABS MORPHINE SULFATE Inactive AMOXICILLIN 500 MG CAPS Take one (1) tablet by mouth three times a day 05/05 AMOXICILLIN 500 MG CAPS 515209 AMOXICILLIN Inactive ZIAC 2.5-6.25 MG TAB 1 tablet every morning for high blood pressure ZIAC 2.5-6.25 MG TAB 365190 BISOPROLOL-HCTZ Inactive ZIAC 2.5-6.25 MG TAB 1 tablet daily for high blood pressure 10/27 ZIAC 2.5-6.25 MG TAB 031453 BISOPROLOL-HCTZ Inactive HYDROXYZINE HCL 25 MG TABS Take one (1) tablet by mouth twice a day HYDROXYZINE HCL 25 MG TABS 788156 HYDROXYZINE HCL Inactive ANUSOL-HC 25 MG SUPPOSITORY 1 rectally every 12 hours for irritation ANUSOL-HC 25 MG SUPPOSITORY 2321073 HYDROCORTISONE NAEL (RECTAL ) Inactive HYDROXYZINE HCL 25 MG TAB 1 two times a day as needed for anxiety HYDROXYZINE HCL 25 MG TAB 687597 HYDROXYZINE HCL Inactive FLOMAX 0.4 MG CAPS 1 capsule in the evening for night time urination. FLOMAX 0.4 MG CAPS 162961 TAMSULOSIN HCL Inactive CLEMASTINE FUMARATE 1.34 MG ORAL TABS 1 tab PO BID CLEMASTINE FUMARATE 1.34 MG ORAL TABS 462553 CLEMASTINE FUMARATE Inactive POLY-IRON 150 150 MG CAPS 1 tab po bid POLY-IRON 150 150 MG CAPS 463246 POLYSACCHARIDE IRON COMPLEX Inactive NYSTATIN 432358 UNIT/GM CREA apply to rash TID PRN NYSTATIN 592816 UNIT/GM CREA 061534 NYSTATIN Inactive APJJAWY-JODOXQAMH-GJXT 167-83-8 MG TABS 1 tab po daily [id number]-QNATIYAGS-KDST 167-83-8 MG TABS 23247974547 CALCIUM-MAGNESIUM- ZINC Inactive CHANTIX 1 MG TABS 1 twice a day CHANTIX 1 MG TABS VARENICLINE TARTRATE Inactive MS CONTIN 100 MG [id number] 1 by mouth twice a day MS CONTIN 100 MG [id number] MORPHINE SULFATE Inactive ENDOCET 10-325 MG TABS 1 by mouth twice a day ENDOCET 10-325 MG TABS 8606589 OXYCODONE-ACETAMINOPHEN Inactive HYDROXYZINE HCL 25 MG TAB take 1 every 4-6 hours as needed 07/01 HYDROXYZINE HCL 25 MG TAB 319449 HYDROXYZINE HCL Inactive ALPRAZOLAM 2 MG TABS 1 tablet by mouth three times daily as needed ALPRAZOLAM 2 MG TABS 756010 ALPRAZOLAM Inactive NEXIUM 40 MG CPDR 1 cap by mouth daily NEXIUM 40 MG CPDR 800137 ESOMEPRAZOLE MAGNESIUM Inactive Advance Directives Directive Description [...] Measured Encounters Code Encounter Date Provider Facility CPT-75618 Level 4 Est. Patient 12:51:46 CDT Wily Gonzalez [facility] CPT-91963 Level 4 Est. Patient 10:10:03 CDT Wily Gonzalez [facility] CPT-26716 Level 3 Est. Patient 14:25:57 CDT Wily Gonzalez [facility] CPT-59500 Level 3 Est. Patient 09:51:37 ENERGY BR[employer]ER Wily Gonzalez [facility] CPT-31547 Level 3 Est. Patient 11:07:48 CDT Wily Gonzalez [facility] CPT-92522 Level 3 Est. Patient 11:24:24 CDT Wily Gonzalez [facility] CPT-18931 Level 3 Est. Patient 15:19:54 ENERGY BROKER Wily Gonzalez [facility] CPT-67427 Level 3 Est. Patient 10:04:45 CDT Wily W Carlos [facility] CPT-33437 Level 3 Est. Patient 13:04:06 CDT Wily Gonzalez [facility] CPT-93526 Level 3 Est. Patient 12:23:04 CDT Wily Gonzalez [facility] CPT-95374 Level 3 Est. Patient 15:43:10 ENERGY BROKER Wily Gonzalez [facility] CPT-35211 Level 3 Est. Patient 16:10:54 CDT Wily Gonzalez [facility] CPT-88741 Level 3 Est. Patient 19:50:51 CDT Wily Gonzalez [facility] CPT-84328 Level 3 Est. Patient 12:02:30 ENERGY BROKER Wily Gonzalez [facility] CPT-29626 Level 3 Est. Patient 12:03:11 ENERGY BROKER Wily Gonzalez [facility] CPT-32307 Level 3 Est. Patient 12:01:41 ENERGY BROKER Wily Gonzalez [facility] CPT-98769 Level 3 Est. Patient 11:51:24 ENERGY BROKER Wily Gonzalez [facility] CPT-12842 Level 3 Est. Patient 11:58:20 ENERGY BROKER Wily Gonzalez [facility] CPT-65973 Level 3 Est. Patient 08:31:36 ENERGY BROKER Wily Gonzalez [facility] CPT-74376 Level 3 Est. Patient 21:57:36 CDT Wily Gonzalez [facility] CPT-12827 Level 3 Est. Patient 10:49:58 CDT Esvin PAULA [facility] CPT-54699 Level 3 Est. Patient 11:22:52 CDT Esvin PAULA [facility] CPT-18479 Level 3 Est. Patient 13:49:41 CDT Esvin PAULA [facility] CPT-41118 Level 3 Est. Patient 11:54:53 CDT Esvin Hudson CHAI [facility] CPT-88281 Level 3 Est. Patient 09:07:11 CDT Esvin Hudson [facility] CPT-51614 Level 3 Est. Patient 13:52:47 CDT Esvin Hudson CHAI [facility] CPT-41203 Level 3 Est. Patient 11:26:46 CDT Esvin Hudson CHAI [facility] CPT-00724 Level 3 Est. Patient 10:25:00 ENERGY BROKER Esvin Hudson CHAI [facility] CPT-31865 Level 3 Est. Patient 11:39:11 ENERGY BROKER Esvin Hudson CHAI [facility] CPT-11055 Level 3 Est. Patient 13:24:24 ENERGY BROKER Esvin Hudson [facility]AI [facility] CPT-22843 Level 3 Est. Patient 10:26:13 ENERGY BROKER Esvin Hudson [facility] CPT-41939 Level 3 Est. Patient 10:21:21 CDT Esvin Hudson [facility] CPT-28350 Level 3 Est. Patient 10:26:30 CDT Esvin Hudson [facility] CPT-22755 Level 3 Est. Patient 09:16:37 CDT Esvin Hudson [facility]-93113 Level 3 Est. Patient 09:06:58 CDT Esvin Hudson [facility] CPT-05554 Level 3 Est. Patient 10:05:29 CDT Esvin Tristan [facility] CPT-31945 Level 3 Est. Patient 10:38:45 CDT Esvin Tristan PA [facility] CPT-32407 Level 3 Est. Patient 10:09:45 CDT Esvin Hudson [facility] CPT-55650 Level 3 Est. Patient 09:26:37 CDT Esvin PAULA [facility] CPT-81658 Level 3 Est. Patient 10:34:42 ENERGY BROKER Esvin Hudson [facility] CPT-77376 Level 3 Est. Patient 10:45:47 ENERGY BROKER Esvin Hudson [facility] CPT-69471 Level 3 Est. Patient 10:45:22 ENERGY BROKER Esvin Hudson [facility] CPT-33341 Level 3 Est. Patient 14:18:30 ENERGY BROKER Esvin Hudson [facility] CPT-24955 Level 3 Est. Patient 13:53:29 ENERGY BROKER Esvin [place] [facility] CPT-04606 Level 3 Est. Patient 10:34:11 CDT Esvin Hudson [facility] Procedures Code Procedure Name Date Entry Date Standard Description CPT-44547 Smoking Cessation counseling 10:10:03 CDT CPT-18164 Smoking Cessation counseling 14:25:57 CDT CPT-83258 Bone Density - XRAY USE ONLY 11:29:32 CDT CPT-11440 LS spine AP and Lat - XRAY USE ONLY 10:07:43 ENERGY BROKER 10/26 CPT-46343 Venipuncture Draw Fee 09:51:16 ENERGY BROKER CPT-36848 Smoking Cessation counseling 09:39:47 ENERGY BROKER CPT-G0438 Initial Annual Wellness Exam 09:37:28 ENERGY BROKER CPT-66203 Venipuncture Draw Fee 09:26:55 CDT CPT-50625 Venipuncture Draw Fee 11:55:52 CDT CPT-11304 Spec Collection and Handling Fee 09:16:37 CDT CPT-59827 Venipuncture Draw Fee 09:16:37 CDT
--- OUTSIDE RECORDS SUMMARY | 2018-02-26 14:43 | XMS REPORT | Clinical Summary ---
Author Author Admin, E Organization [employer] Address Unknown Phone Unavailable Allergies, Adverse Reactions, [...] sprays each nostril every day FLUTICASONE PROPIONATE [id number] Active Wily Gonzalez DO Active CLEMASTINE FUMARATE 1.34 MG ORAL TABS 1 tab PO BID CLEMASTINE FUMARATE 60843552664 No Longer Active Wily Gonzalez DO Active FLOMAX 0.4 MG CAPS 1 capsule in the evening for night time urination. TAMSULOSIN HCL 47089568503 No Longer Active Wily Gonzalez DO Active PROTONIX 40 MG TBEC 1 po daily PANTOPRAZOLE SODIUM 95692237743 Active Wily Gonzalez DO Active HYDROXYZINE HCL 25 MG TAB 1 two times a day as needed for anxiety HYDROXYZINE HCL 72373192224 No Longer Active Wily Gonzalez DO Active ANUSOL-HC 25 MG SUPPOSITORY 1 rectally every 12 hours for irritation HYDROCORTISONE NAEL (RECTAL) 80073425299 No Longer Active Wily Gonzalez DO Active HYDROXYZINE HCL 25 MG TABS Take one (1) tablet by mouth twice a day HYDROXYZINE HCL 41645342682 No Longer Active Wily Gonzalez DO Active ZIAC 2.5-6.25 MG TAB 1 tablet daily for high blood pressure 10/27 BISOPROLOL-HCTZ 85919582861 No Longer Active Wily Gonzalez DO Active [id number] 167-83-8 MG TABS 1 tab po daily CALCIUM -MAGNESIUM-ZINC 14878901567 Active Wily Gonzalez DO Active NYSTATIN 364708 UNIT/GM CREA apply to rash TID PRN NYSTATIN 85136591241 Active Wily Gonzalez DO Active ZIAC 2.5-6.25 MG TAB 1 tablet every morning for high blood pressure BISOPROLOL-HCTZ 73908013162 No Longer Active Wily Gonzalez DO Active AMOXICILLIN 500 MG CAPS Take one (1) tablet by mouth three times a day 05/05 AMOXICILLIN 68932291628 No Longer Active Wily Gonzalez DO Active MORPHINE SULFATE ER 100 MG CR-TABS Take one (1) tablet by mouth twice a day MORPHINE SULFATE 99291429067 No Longer Active Wily Gonzalez DO Active MORPHINE SULFATE ER 100 MG [id number] 1 capsule twice daily for chronic pain MORPHINE SULFATE 41823323675 Active Wily Gonzalez DO Active CIALIS 10 MG TABS 1 every 72 hours as needed TADALAFIL 10886066718 No Longer Active Esvin PAULA Active FLONASE 50 MCG/ACT SUSP 2 SPRAY EACH NARE DAILY FLUTICASONE PROPIONATE 63182601265 No Longer Active Esvin PAULA Active CYCLOBENZAPRINE HCL 10 MG TABS Take one (1) tablet by mouth three times a day CYCLOBENZAPRINE HCL 18332270548 Active Wily Gonzalez DO Active OPANA ER (CRUSH RESISTANT) 40 MG [id number] Take one (1) tablet by mouth twice a day OXYMORPHONE HCL 98226203158 No Longer Active Esvin PAULA Active POLY-IRON 150 150 MG CAPS 1 tab po bid POLYSACCHARIDE IRON COMPLEX 77885451510 Active Wily Gonzalez DO Active PROAIR HFA 108 (90 BASE) MCG/ACT AERS 2 puffs every four hours as needed ALBUTEROL SULFATE 81615525450 No Longer Active Esvin PAULA Active CLEARLAX POWD 17gm q day prn constipation POLYETHYLENE GLYCOL 3350 60527433105 Active Kaylen Leigh MA Active MORPHINE SULFATE ER 100 MG [id number] Take one (1) tablet by mouth twice a day MORPHINE SULFATE 14524086450 No Longer Active Esvin PAULA Active FLEXERIL 10 MG TAB 1 tablet by mouth 3 times daily as needed CYCLOBENZAPRINE HCL 92966898344 No Longer Active Esvin PAULA Active CELEBREX 200 MG CAPS 1 tablet by mouth twice daily with meals CELECOXIB 53652792418 No Longer Active Esvin PAULA Active NEXIUM 40 MG CPDR 1 cap daily ESOMEPRAZOLE MAGNESIUM 64148252285 No Longer Active Esvin PAULA Active MOBIC 15 MG TABS 1 tab daily MELOXICAM 49756258018 No Longer Active Esvin PAULA Active LISINOPRIL 20 MG TABS Take 1 tablet by mouth daily LISINOPRIL 83487485300 No Longer Active Esvin PAULA Active DICLOFENAC SODIUM 50 MG TBEC 1 tablet by mouth four times daily DICLOFENAC SODIUM 18873914885 No Longer Active Paula Cooney RN Active VERAMYST 27.5 MCG/SPRAY SUSP 2 spray each nare daily FLUTICASONE FUROATE 88853659535 No Longer Active Megan Vargas RN Active ENDOCET 10-325 MG TABS Take one (1) tablet by mouth three times a day OXYCODONE-ACETAMINOPHEN 81938381556 Active Wily Gonzalez DO Active ALPRAZOLAM 2 MG TABS Take one (1) tablet by mouth three times a day ALPRAZOLAM 43738974685 Active Kaylen Leigh MA Active NEXIUM 40 MG CPDR 1 cap by mouth daily ESOMEPRAZOLE MAGNESIUM 29478296587 No Longer Active Esvin PAULA Active ALPRAZOLAM 2 MG TABS 1 tablet by mouth three times daily as needed ALPRAZOLAM 96763041398 No Longer Active Esvin PAULA Active HYDROXYZINE HCL 25 MG TAB take 1 every 4-6 hours as needed 07/01 HYDROXYZINE HCL 87643110154 No Longer Active Esvin PAULA Active ENDOCET 10-325 MG TABS 1 by mouth twice a day OXYCODONE-ACETAMINOPHEN 68601297268 No Longer Active sEvin PAULA Active MS CONTIN 100 MG QU93U-RSH 1 by mouth twice a day MORPHINE SULFATE 39537572773 No Longer Active Esvin PAULA Active SUDAFED 30 MG TAB 1-2 every 4-6 hours as needed PSEUDOEPHEDRINE HCL 97114660185 Active Marylou Melissa RPT,RMA Active VERAMYST 27.5 MCG/SPRAY SUSP 2 spray each nare daily VERAMYST 27.5 MCG/SPRAY SUSP FLUTICASONE FUROATE Inactive DICLOFENAC SODIUM 50 MG TBEC 1 tablet by mouth four times daily DICLOFENAC SODIUM 50 MG TBEC 350267 DICLOFENAC SODIUM Inactive LISINOPRIL 20 MG TABS Take 1 tablet by mouth daily LISINOPRIL 20 MG TABS 625975 LISINOPRIL Inactive MOBIC 15 MG TABS 1 tab daily MOBIC 15 MG TABS 120874 MELOXICAM Inactive NEXIUM 40 MG CPDR 1 cap daily NEXIUM 40 MG CPDR 923295 ESOMEPRAZOLE MAGNESIUM Inactive CELEBREX 200 MG CAPS 1 tablet by mouth twice daily with meals CELEBREX 200 MG CAPS 006751 CELECOXIB Inactive FLEXERIL 10 MG TAB 1 tablet by mouth 3 times daily as needed FLEXERIL 10 MG TAB CYCLOBENZAPRINE HCL Inactive PROAIR HFA 108 (90 BASE) MCG/ACT AERS 2 puffs every four hours as needed PROAIR HFA 108 (90 BASE) MCG/ACT AERS ALBUTEROL SULFATE Inactive FLONASE 50 MCG/ACT SUSP 2 SPRAY EACH NARE DAILY FLONASE 50 MCG/ACT SUSP 689687 FLUTICASONE PROPIONATE Inactive CIALIS 10 MG TABS 1 every 72 hours as needed CIALIS 10 MG TABS TADALAFIL Inactive MORPHINE SULFATE ER 100 MG CR-TABS Take one (1) tablet by mouth twice a day MORPHINE SULFATE ER 100 MG CR-TABS MORPHINE SULFATE Inactive AMOXICILLIN 500 MG CAPS Take one (1) tablet by mouth three times a day 05/05 AMOXICILLIN 500 MG CAPS 504343 AMOXICILLIN Inactive ZIAC 2.5-6.25 MG TAB 1 tablet every morning for high blood pressure ZIAC 2.5-6.25 MG TAB 002587 BISOPROLOL-HCTZ Inactive ZIAC 2.5-6.25 MG TAB 1 tablet daily for high blood pressure 10/27 ZIAC 2.5-6.25 MG TAB 435141 BISOPROLOL-HCTZ Inactive HYDROXYZINE HCL 25 MG TABS Take one (1) tablet by mouth twice a day HYDROXYZINE HCL 25 MG TABS 052305 HYDROXYZINE HCL Inactive ANUSOL-HC 25 MG SUPPOSITORY 1 rectally every 12 hours for irritation ANUSOL-HC 25 MG SUPPOSITORY 9999986 HYDROCORTISONE NAEL (RECTAL ) Inactive HYDROXYZINE HCL 25 MG TAB 1 two times a day as needed for anxiety HYDROXYZINE HCL 25 MG TAB 295567 HYDROXYZINE HCL Inactive FLOMAX 0.4 MG CAPS 1 capsule in the evening for night time urination. FLOMAX 0.4 MG CAPS 155061 TAMSULOSIN HCL Inactive CLEMASTINE FUMARATE 1.34 MG ORAL TABS 1 tab PO BID CLEMASTINE FUMARATE 1.34 MG ORAL TABS 828314 CLEMASTINE FUMARATE Inactive MS CONTIN 100 MG [id number] 1 by mouth twice a day MS CONTIN 100 MG [id number] MORPHINE SULFATE Inactive ENDOCET 10-325 MG TABS 1 by mouth twice a day ENDOCET 10-325 MG TABS 9216277 OXYCODONE-ACETAMINOPHEN Inactive HYDROXYZINE HCL 25 MG TAB take 1 every 4-6 hours as needed 07/01 HYDROXYZINE HCL 25 MG TAB 058819 HYDROXYZINE HCL Inactive ALPRAZOLAM 2 MG TABS 1 tablet by mouth three times daily as needed ALPRAZOLAM 2 MG TABS 636720 ALPRAZOLAM Inactive NEXIUM 40 MG CPDR 1 cap by mouth daily NEXIUM 40 MG CPDR 974567 ESOMEPRAZOLE MAGNESIUM Inactive Advance Directives Directive Description [...] ... - Chemistry sodium, serum 140 mmol/L 910-985 3004/03/25 carbon dioxide, venous blood 31.3 mmol/L 21.0-32.0 potassium, serum 4.0 mmol/L 3.5-5.2 chloride, serum 101 mmol/L 98-107 blood glucose 96 mg/dL 65-110 urea nitrogen, blood 7 mg/dL 7-18 creatinine, serum 0.94 mg/dL 0.55-1.30 alanine aminotransferase (SGPT), serum 23 U/L 12-78 aspartate aminotransferase (SGOT), serum 21 U/L 15-37 calcium, serum 8.9 mg/dL 8.5-10.1 bilirubin, serum, total 0.30 mg/dL 0.00-1.00 cholesterol, serum 169 mg/dL 181-236 1760/03/25 triglyceride, serum, fasting 143 mg/dL 30-200 HDL [...] 5.0-8.5 Encounters Code Encounter Date Provider Facility [id number] Level 3 Est. Patient 11:24:24 CDT Wily Zhang [facility] CPT-22902 Level 3 Est. Patient 15:19:54 [employer] Wily Zhang [facility] CPT-59259 Level 3 Est. Patient 10:04:45 CDT Wily Zhang [facility] CPT-11455 Level 3 Est. Patient 13:04:06 CDT Wily Zhang [facility] CPT-31818 Level 3 Est. Patient 12:23:04 CDT Wily Zhang [facility] CPT-21220 Level 3 Est. Patient 15:43:10 [employer] Wily Gonzalez [facility] CPT-57280 Level 3 Est. Patient 16:10:54 CDT Wily Gonzalez [facility] CPT-98967 Level 3 Est. Patient 19:50:51 CDT Wily Gonzalez [facility] CPT-94135 Level 3 Est. Patient 12:02:30 [employer] Wily Gonzalez [facility] CPT-90452 Level 3 Est. Patient 12:03:11 [employer] Wily Gonzalez [facility] CPT-15113 Level 3 Est. Patient 12:01:41 [employer] Wily Gonzalez [facility] CPT-98271 Level 3 Est. Patient 11:51:24 [employer] Wily Gonzalez [facility] CPT-12368 Level 3 Est. Patient 11:58:20 [employer] Wily Gonzalez [facility] CPT-65324 Level 3 Est. Patient 08:31:36 [employer] Wily Gonzalez [facility] CPT-39120 Level 3 Est. Patient 21:57:36 CDT Wily Gonzalez [facility] CPT-56574 Level 3 Est. Patient 10:49:58 CDT Esvin Hudson [facility] CPT-13731 Level 3 Est. Patient 11:22:52 CDT Esvin Hudson [facility] CPT-23054 Level 3 Est. Patient 13:49:41 CDT Esvin Hudson [facility] CPT-22828 Level 3 Est. Patient 11:54:53 CDT Esvin Hudson [facility] CPT-94048 Level 3 Est. Patient 09:07:11 CDT Esvin Hudson [facility] CPT-16621 Level 3 Est. Patient 13:52:47 CDT Esvin Hudson PA [facility] CPT-66835 Level 3 Est. Patient 11:26:46 CDT Esvin Hudson [facility] CPT-90943 Level 3 Est. 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 Patient 11:39:11 REPAIRER SHOE [employer]IC[employer] Esvin Hudson CHAI [facility] CPT-45957 Level 3 Est. Patient 13:24:24 REPAIRER SHOE [employer]IC[employer] Esvin PAULA [facility] CPT-96395 Level 3 Est. Patient 10:26:13 RE[employer]ER [employer] Esvin Hudson CH[facility] CPT-28447 Level 3 Est. Patient 10:21:21 CDT Esvin Hudson CH[facility] CPT-00635 Level 3 Est. Patient 10:26:30 CDT Esvin Hudson CH[facility] CPT-17246 Level 3 Est. Patient 09:16:37 CDT Esvin Hudson [facility] CPT-52445 Level 3 Est. Patient 09:06:58 CDT Esvin Hudson [facility] CPT-74184 Level 3 Est. Patient 10:05:29 CDT Esvin Hudson [facility] CPT-84067 Level 3 Est. Patient 10:38:45 CDT Esvin PAULA [facility] CPT-70556 Level 3 Est. Patient 10:09:45 CDT Esvin Hudson [facility] CPT-55278 Level 3 Est. Patient 09:26:37 CDT Esvin Hduson [facility] CPT-57579 Level 3 Est. Patient 10:34:42 REPAIRER [employer]OE [employer] Esvin Tristan [facility] CPT-52803 Level 3 Est. Patient 10:45:47 REPAIRER SHOE [employer]IC[employer] Esvin PAULA [facility] CPT-31073 Level 3 Est. Patient 10:45:22 REPAIRER [employer]OE [employer]IC[employer] Esvin Hudson [facility] CPT-97445 Level 3 Est. Patient 14:18:30 RE[employer]ER [employer] Esvin Hudson [facility] CPT-04965 Level 3 Est. Patient 13:53:29 [employer]ER [employer] Esvin Hudson [facility] CPT-74968 Level 3 Est. Patient 10:34:11 CDT Esvin Crandall [facility] Procedures Code Procedure Name Date Entry Date Standard Description CPT-71454 Venipuncture Draw Fee 09:26:55 CDT CPT-60673 Venipuncture Draw Fee 11:55:52 CDT CPT-47449 Spec Collection and Handling Fee 09:16:37 CDT CPT-64543 Venipuncture Draw Fee 09:16:37 CDT
--- OUTSIDE RECORDS SUMMARY | 2018-02-26 14:44 | XMS REPORT | Clinical Summary ---
Author Author Admin, E Organization [employer] Address Unknown Phone Unavailable Allergies, Adverse Reactions, [...] Esvin PAULA Lumbago ANKLE PAIN 719.47 Active Esivn PAULA Pain in joint involving ankle and [...] sprays each nostril every day FLUTICASONE PROPIONATE 05660599050 Active Wily Gonzalez DO Active CLEMASTINE FUMARATE 1.34 MG ORAL TABS 1 tab PO BID CLEMASTINE FUMARATE 45111746229 No Longer Active Wily Gonzalez DO Active FLOMAX 0.4 MG CAPS 1 capsule in the evening for night time urination. TAMSULOSIN HCL 63760015003 No Longer Active Wily Gonzalez DO Active PROTONIX 40 MG TBEC 1 po daily PANTOPRAZOLE SODIUM 68477125008 Active Wily Gonzalez DO Active HYDROXYZINE HCL 25 MG TAB 1 two times a day as needed for anxiety HYDROXYZINE HCL 85842553824 No Longer Active Wily Gonzalez DO Active ANUSOL-HC 25 MG SUPPOSITORY 1 rectally every 12 hours for irritation HYDROCORTISONE NAEL (RECTAL) 59588838510 No Longer Active Wily Gonzalez DO Active HYDROXYZINE HCL 25 MG TABS Take one (1) tablet by mouth twice a day HYDROXYZINE HCL 15475459824 No Longer Active Wily Gonzalez DO Active ZIAC 2.5-6.25 MG TAB 1 tablet daily for high blood pressure 10/27 BISOPROLOL-HCTZ 64918623153 No Longer Active Wily Gonzalez DO Active [id number] 167-83-8 MG TABS 1 tab po daily CALCIUM -MAGNESIUM-ZINC 79844716202 Active Wily Gonzalez DO Active NYSTATIN 492435 UNIT/GM CREA apply to rash TID PRN NYSTATIN 06592142495 Active Wily Gonzalez DO Active ZIAC 2.5-6.25 MG TAB 1 tablet every morning for high blood pressure BISOPROLOL-HCTZ 71969537294 No Longer Active Wily Gonzalez DO Active AMOXICILLIN 500 MG CAPS Take one (1) tablet by mouth three times a day 05/05 AMOXICILLIN 00906218267 No Longer Active Wily Gonzalez DO Active MORPHINE SULFATE ER 100 MG CR-TABS Take one (1) tablet by mouth twice a day MORPHINE SULFATE 68937770523 No Longer Active Wily Gonzalez DO Active MORPHINE SULFATE ER 100 MG [id number] 1 capsule twice daily for chronic pain MORPHINE SULFATE 52548992705 Active Wily Gonzalez DO Active CIALIS 10 MG TABS 1 every 72 hours as needed TADALAFIL 15813900045 No Longer Active Esvin PAULA Active FLONASE 50 MCG/ACT SUSP 2 SPRAY EACH NARE DAILY FLUTICASONE PROPIONATE 34724651189 No Longer Active Esvin PAULA Active CYCLOBENZAPRINE HCL 10 MG TABS Take one (1) tablet by mouth three times a day CYCLOBENZAPRINE HCL 96280363122 Active Wily Gonzalez DO Active OPANA ER (CRUSH RESISTANT) 40 MG [id number] Take one (1) tablet by mouth twice a day OXYMORPHONE HCL 66899697392 No Longer Active Esvin PAULA Active POLY-IRON 150 150 MG CAPS 1 tab po bid POLYSACCHARIDE IRON COMPLEX 62267406406 Active Wily Gonzalez DO Active PROAIR HFA 108 (90 BASE) MCG/ACT AERS 2 puffs every four hours as needed ALBUTEROL SULFATE 51577813969 No Longer Active Esvin PAULA Active CLEARLAX POWD 17gm q day prn constipation POLYETHYLENE GLYCOL 3350 26787000074 Active Kaylen Leigh MA Active MORPHINE SULFATE ER 100 MG [id number] Take one (1) tablet by mouth twice a day MORPHINE SULFATE 92098418312 No Longer Active Esvin PAULA Active FLEXERIL 10 MG TAB 1 tablet by mouth 3 times daily as needed CYCLOBENZAPRINE HCL 00405389267 No Longer Active Esvin PAULA Active CELEBREX 200 MG CAPS 1 tablet by mouth twice daily with meals CELECOXIB 38504733506 No Longer Active Esvin PAULA Active NEXIUM 40 MG CPDR 1 cap daily ESOMEPRAZOLE MAGNESIUM 53330361589 No Longer Active Esvin PAULA Active MOBIC 15 MG TABS 1 tab daily MELOXICAM 86990657449 No Longer Active Esvin PAULA Active LISINOPRIL 20 MG TABS Take 1 tablet by mouth daily LISINOPRIL 88361309176 No Longer Active Esvin PAULA Active DICLOFENAC SODIUM 50 MG TBEC 1 tablet by mouth four times daily DICLOFENAC SODIUM 86215101976 No Longer Active Paula Cooney RN Active VERAMYST 27.5 MCG/SPRAY SUSP 2 spray each nare daily FLUTICASONE FUROATE 51985532714 No Longer Active Megan Vargas RN Active ENDOCET 10-325 MG TABS Take one (1) tablet by mouth three times a day OXYCODONE-ACETAMINOPHEN 28945867416 Active Wily Gonzalez DO Active ALPRAZOLAM 2 MG TABS Take one (1) tablet by mouth three times a day ALPRAZOLAM 90489950153 Active Marylou Melissa RPT,RMA Active NEXIUM 40 MG CPDR 1 cap by mouth daily ESOMEPRAZOLE MAGNESIUM 81252544433 No Longer Active Esvin PAULA Active ALPRAZOLAM 2 MG TABS 1 tablet by mouth three times daily as needed ALPRAZOLAM 54777599738 No Longer Active Esvin PAULA Active HYDROXYZINE HCL 25 MG TAB take 1 every 4-6 hours as needed 07/01 HYDROXYZINE HCL 33534004426 No Longer Active Esvin PAULA Active ENDOCET 10-325 MG TABS 1 by mouth twice a day OXYCODONE-ACETAMINOPHEN 55111175355 No Longer Active Esvin PAULA Active MS CONTIN 100 MG [id number] 1 by mouth twice a day MORPHINE SULFATE 55914964481 No Longer Active Esvin PAULA Active SUDAFED 30 MG TAB 1-2 every 4-6 hours as needed PSEUDOEPHEDRINE HCL 82414020387 Active Marylou Melissa RPT,RMA Active VERAMYST 27.5 MCG/SPRAY SUSP 2 spray each nare daily VERAMYST 27.5 MCG/SPRAY SUSP FLUTICASONE FUROATE Inactive DICLOFENAC SODIUM 50 MG TBEC 1 tablet by mouth four times daily DICLOFENAC SODIUM 50 MG TBEC 841087 DICLOFENAC SODIUM Inactive LISINOPRIL 20 MG TABS Take 1 tablet by mouth daily LISINOPRIL 20 MG TABS 998396 LISINOPRIL Inactive MOBIC 15 MG TABS 1 tab daily MOBIC 15 MG TABS 538277 MELOXICAM Inactive NEXIUM 40 MG CPDR 1 cap daily NEXIUM 40 MG CPDR 530657 ESOMEPRAZOLE MAGNESIUM Inactive CELEBREX 200 MG CAPS 1 tablet by mouth twice daily with meals CELEBREX 200 MG CAPS 349095 CELECOXIB Inactive FLEXERIL 10 MG TAB 1 [...] a day 05/05 AMOXICILLIN 500 MG CAPS 717843 AMOXICILLIN Inactive ZIAC 2.5-6.25 MG TAB 1 tablet every morning for high blood pressure ZIAC 2.5-6.25 MG TAB 711688 BISOPROLOL-HCTZ Inactive ZIAC 2.5-6.25 MG TAB 1 tablet daily for high blood pressure 10/27 ZIAC 2.5-6.25 MG TAB 820835 BISOPROLOL-HCTZ Inactive HYDROXYZINE HCL 25 MG TABS Take one (1) tablet by mouth twice a day HYDROXYZINE HCL 25 MG TABS 882837 HYDROXYZINE HCL Inactive ANUSOL-HC 25 MG SUPPOSITORY 1 rectally every 12 hours for irritation ANUSOL-HC 25 MG SUPPOSITORY 9252501 HYDROCORTISONE NAEL (RECTAL ) Inactive HYDROXYZINE HCL 25 MG TAB 1 two times a day as needed for anxiety HYDROXYZINE HCL 25 MG TAB 331602 HYDROXYZINE HCL Inactive FLOMAX 0.4 MG CAPS 1 capsule in the evening for night time urination. FLOMAX 0.4 MG CAPS 565584 TAMSULOSIN HCL Inactive CLEMASTINE FUMARATE 1.34 MG ORAL TABS 1 tab PO BID CLEMASTINE FUMARATE 1.34 MG ORAL TABS 458616 CLEMASTINE FUMARATE Inactive MS CONTIN 100 MG [id number] 1 by mouth twice a day MS CONTIN 100 MG [id number] MORPHINE SULFATE Inactive ENDOCET 10-325 MG TABS 1 by mouth twice a day ENDOCET 10-325 MG TABS 0712724 OXYCODONE-ACETAMINOPHEN Inactive HYDROXYZINE HCL 25 MG TAB take 1 every 4-6 hours as needed 07/01 HYDROXYZINE HCL 25 MG TAB 447961 HYDROXYZINE HCL Inactive ALPRAZOLAM 2 MG TABS 1 tablet by mouth three times daily as needed ALPRAZOLAM 2 MG TABS 390440 ALPRAZOLAM Inactive NEXIUM 40 MG CPDR 1 cap by mouth daily NEXIUM 40 MG CPDR 914136 ESOMEPRAZOLE MAGNESIUM Inactive Advance Directives Directive Description Start Date PERMISSION TO SHARE Vital Signs Date Name Value Unit Range Description blood pressure, diastolic - 8462-4 94 mm[Hg] [...] E&M - 3141-9 175 [lb_av] Weight Measured Diagnostic Results Date Name Value Unit Range Description Chart Maintenance: Hemoccult added to flowsheet - Chemistry occult blood, stool (E&M) Negative Lab Report: CBC - Hematology leukocyte count, [...] ... - Chemistry sodium, serum 140 mmol/L 192-943 4314/03/25 carbon dioxide, venous blood 31.3 mmol/L 21.0-32.0 potassium, serum 4.0 mmol/L 3.5-5.2 chloride, serum 101 mmol/L 98-107 blood glucose 96 mg/dL 65-110 urea nitrogen, blood 7 mg/dL 7-18 creatinine, serum 0.94 mg/dL 0.55-1.30 alanine aminotransferase (SGPT), serum 23 U/L 12-78 aspartate aminotransferase (SGOT), serum 21 U/L 15-37 calcium, serum 8.9 mg/dL 8.5-10.1 bilirubin, serum, total 0.30 mg/dL 0.00-1.00 cholesterol, serum 169 mg/dL 672-816 9028/03/25 triglyceride, serum, fasting 143 mg/dL 30-200 HDL [...] 5.0-8.5 Encounters Code Encounter Date Provider Facility CPT-12994 Level 3 Est. Patient 11:24:24 CDT Wily Zhang [facility] CPT-70913 Level 3 Est. Patient 15:19:54 [employer] Wily Zhang [facility] CPT-58573 Level 3 Est. Patient 10:04:45 CDT Wily Zhang [facility] CPT-20124 Level 3 Est. Patient 13:04:06 CDT Wily Zhang [facility] CPT-24298 Level 3 Est. Patient 12:23:04 CDT Wily W Carlos [facility] CPT-42574 Level 3 Est. Patient 15:43:10 [employer] Wily Gonzalez [facility] CPT-46247 Level 3 Est. Patient 16:10:54 CDT Wily Gonzalez [facility] CPT-92640 Level 3 Est. Patient 19:50:51 CDT Wily Gonzalez [facility] CPT-70727 Level 3 Est. Patient 12:02:30 [employer] Wily Gonzalez [facility] CPT-26951 Level 3 Est. Patient 12:03:11 [employer] INST[employer] Wily Gonzalez [facility] CPT-24238 Level 3 Est. Patient 12:01:41 [employer] INST[employer]ER Wily Gonzalez [facility] CPT-86407 Level 3 Est. Patient 11:51:24 [employer] INST[employer]ER Wily Gonzalez [facility] CPT-03246 Level 3 Est. Patient 11:58:20 [employer] IN[employer] Wily Gonzalez [facility] CPT-49276 Level 3 Est. Patient 08:31:36 [employer] INST[employer] Wily Gonzalez [facility] CPT-24715 Level 3 Est. Patient 21:57:36 CDT Wily Gonzalez [facility] CPT-37895 Level 3 Est. Patient 10:49:58 CDT Esvin Hudson [facility] CPT-21927 Level 3 Est. Patient 11:22:52 CDT Esvin Hudson [facility] CPT-79657 Level 3 Est. Patient 13:49:41 CDT Esvin Hudson [facility] CPT-65107 Level 3 Est. Patient 11:54:53 CDT Esvin Hudson [facility] CPT-96227 Level 3 Est. Patient 09:07:11 CDT Esvin Hudson [facility] CPT-72740 Level 3 Est. Patient 13:52:47 CDT Esvin Tristan PA [facility] CPT-28388 Level 3 Est. Patient 11:26:46 CDT Esvin Tristan PA [facility] CPT-25215 Level 3 Est. Patient 10:25:00 [employer] IN[employer] Esvin Tristan PA [facility] CPT-38125 Level 3 Est. 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 Patient 13:24:24 [employer]OUSI[employer] INSTALLER Esvin PAULA [facility]-16856 Level 3 Est. Patient 10:26:13 J[employer]OUSIES INSTALLER Esvin PAULA [facility]-96909 Level 3 Est. Patient 10:21:21 CDT Esvin PAULA [facility]-81291 Level 3 Est. Patient 10:26:30 CDT Esvin Tristan PA [facility] CPT-75285 Level 3 Est. Patient 09:16:37 CDT Esvin Waldoboro PA [facility]-24444 Level 3 Est. Patient 09:06:58 CDT Esvin Waldoboro PA [facility] CPT-35891 Level 3 Est. Patient 10:05:29 CDT Esvin Waldoboro PA [facility]-71841 Level 3 Est. Patient 10:38:45 CDT Esvin Waldoboro [facility] CPT-90751 Level 3 Est. Patient 10:09:45 CDT Esvin PAULA [facility]-81191 Level 3 Est. Patient 09:26:37 CDT Esvin PAULA [facility]-76917 Level 3 Est. Patient 10:34:42 [employer] INST[employer]ER Esvin Waldoboro [facility] CPT-93758 Level 3 Est. Patient 10:45:47 [employer] INST[employer]ER Esvin Hudson [facility] CPT-65336 Level 3 Est. Patient 10:45:22 [employer] INST[employer]ER Esvin Hudson [facility] CPT-87736 Level 3 Est. Patient 14:18:30 [employer] INST[employer]ER Esvin Waldoboro [facility] CPT-97932 Level 3 Est. Patient 13:53:29 [employer] IN[employer] Esvin Hudson [facility] CPT-91404 Level 3 Est. Patient 10:34:11 CDT Esvin Hudson [facility] Procedures Code Procedure Name Date Entry Date Standard Description CPT-84851 Venipuncture Draw Fee 09:26:55 CDT CPT-74757 Venipuncture Draw Fee 11:55:52 CDT CPT-62234 Spec Collection and Handling Fee 09:16:37 CDT CPT-21090 Venipuncture Draw Fee 09:16:37 CDT
--- OUTSIDE RECORDS SUMMARY | 2018-02-26 14:45 | XMS REPORT | Clinical Summary ---
Author Author Admin, E Organization [facility] Address Unknown Phone Unavailable Allergies, Adverse [...] a health care facility HYPERTENSION ICD-401.9 Inactive Wiyl Gonzalez DO ANKLE PAIN ICD-719.47 Inactive Wily [...] Generic Name NDC Status Provider Patient Instruction [id number] 167-83-8 MG TABS 1 tab po daily [id number] No Longer Active Wily Gonzalez DO Active NYSTATIN 017633 UNIT/GM CREA apply to rash TID PRN NYSTATIN 98279871205 No Longer Active Wily Gonzalez DO Active POLY-IRON 150 150 MG CAPS 1 tab po bid POLYSACCHARIDE IRON COMPLEX 01611596317 No Longer Active Wily Gonzalez DO Active FLONASE ALLERGY RELIEF 50 MCG/ACT NASAL SUSP 2 sprays each nostril every day FLUTICASONE PROPIONATE 03511815817 Active Wily Gonzalez DO Active CLEMASTINE FUMARATE 1.34 MG ORAL TABS 1 tab PO BID CLEMASTINE FUMARATE 68417716614 No Longer Active Wily Gonzalez DO Active FLOMAX 0.4 MG CAPS 1 capsule in the evening for night time urination. TAMSULOSIN HCL 64278365168 No Longer Active Wily Gonzalez DO Active PROTONIX 40 MG TBEC 1 po daily PANTOPRAZOLE SODIUM 93961828808 Active Agnieszka Yeung Active HYDROXYZINE HCL 25 MG TAB 1 two times a day as needed for anxiety HYDROXYZINE HCL 27711020167 No Longer Active Wily Gonzalez DO Active ANUSOL-HC 25 MG SUPPOSITORY 1 rectally every 12 hours for irritation HYDROCORTISONE NAEL (RECTAL) 75063883974 No Longer Active Wily Gonzalez DO Active HYDROXYZINE HCL 25 MG TABS Take one (1) tablet by mouth twice a day HYDROXYZINE HCL 53776123013 No Longer Active Wily Gonzalez DO Active ZIAC 2.5-6.25 MG TAB 1 tablet daily for high blood pressure 10/27 BISOPROLOL-HCTZ 15686415751 No Longer Active Wily Gonzalez DO Active ZIAC 2.5-6.25 MG TAB 1 tablet every morning for high blood pressure BISOPROLOL-HCTZ 85088016536 No Longer Active Wily Gonzalez DO Active AMOXICILLIN 500 MG CAPS Take one (1) tablet by mouth three times a day 05/05 AMOXICILLIN 67753183656 No Longer Active Wily Gonzalez DO Active MORPHINE SULFATE ER 100 MG CR-TABS Take one (1) tablet by mouth twice a day MORPHINE SULFATE 29340014140 No Longer Active Wily Gonzalez DO Active MORPHINE SULFATE ER 100 MG [id number] 1 capsule twice daily for chronic pain MORPHINE SULFATE 23935110530 Active Rose Bang Active CIALIS 10 MG TABS 1 every 72 hours as needed TADALAFIL 68763209538 No Longer Active Esvin PAULA Active FLONASE 50 MCG/ACT SUSP 2 SPRAY EACH NARE DAILY FLUTICASONE PROPIONATE 10281038301 No Longer Active Esvin PAULA Active CYCLOBENZAPRINE HCL 10 MG TABS Take one (1) tablet by mouth three times a day CYCLOBENZAPRINE HCL 90521806128 Active Agnieszka Gamal Active OPANA ER (CRUSH RESISTANT) 40 MG [id number] Take one (1) tablet by mouth twice a day OXYMORPHONE HCL 44472970050 No Longer Active Esvin PAULA Active PROAIR HFA 108 (90 BASE) MCG/ACT AERS 2 puffs every four hours as needed ALBUTEROL SULFATE 81198323798 No Longer Active Esvin PAULA Active CLEARLAX POWD 17gm q day prn constipation POLYETHYLENE GLYCOL 3350 39448241335 Active Kaylen Leigh MA Active MORPHINE SULFATE ER 100 MG HU80Q-CST Take one (1) tablet by mouth twice a day MORPHINE SULFATE 22561140745 No Longer Active Esvin PAULA Active FLEXERIL 10 MG TAB 1 tablet by mouth 3 times daily as needed CYCLOBENZAPRINE HCL 85297525785 No Longer Active Esvin PAULA Active CELEBREX 200 MG CAPS 1 tablet by mouth twice daily with meals CELECOXIB 90587108379 No Longer Active Esvin PAULA Active NEXIUM 40 MG CPDR 1 cap daily ESOMEPRAZOLE MAGNESIUM 10308853169 No Longer Active Esvin PAULA Active MOBIC 15 MG TABS 1 tab daily MELOXICAM 63097556896 No Longer Active Esvin PAULA Active LISINOPRIL 20 MG TABS Take 1 tablet by mouth daily LISINOPRIL 79861791626 No Longer Active Esvin PAULA Active DICLOFENAC SODIUM 50 MG TBEC 1 tablet by mouth four times daily DICLOFENAC SODIUM 47411414869 No Longer Active Paula Cooney RN Active VERAMYST 27.5 MCG/SPRAY SUSP 2 spray each nare daily FLUTICASONE FUROATE 75816608728 No Longer Active Megan Vargas RN Active ENDOCET 10-325 MG TABS Take one (1) tablet by mouth three times a day OXYCODONE-ACETAMINOPHEN 36362372131 Active Rose Bang Active ALPRAZOLAM 2 MG TABS Take one (1) tablet by mouth three times a day ALPRAZOLAM 90761604284 Active Rose Bang Active NEXIUM 40 MG CPDR 1 cap by mouth daily ESOMEPRAZOLE MAGNESIUM 29059291827 No Longer Active Esvin PAULA Active ALPRAZOLAM 2 MG TABS 1 tablet by mouth three times daily as needed ALPRAZOLAM 82697212537 No Longer Active Esvin PAULA Active HYDROXYZINE HCL 25 MG TAB take 1 every 4-6 hours as needed 07/01 HYDROXYZINE HCL 81814724366 No Longer Active Esvin PAULA Active ENDOCET 10-325 MG TABS 1 by mouth twice a day OXYCODONE-ACETAMINOPHEN 88040384817 No Longer Active Esvin PAULA Active MS CONTIN 100 MG [id number] 1 by mouth twice a day MORPHINE SULFATE 22024163366 No Longer Active Esvin PAULA Active SUDAFED 30 MG TAB 1-2 every 4-6 hours as needed PSEUDOEPHEDRINE HCL 86382730954 Active Marylou Melissa RPT,RMA Active VERAMYST 27.5 MCG/SPRAY SUSP 2 spray each nare daily VERAMYST 27.5 MCG/SPRAY SUSP FLUTICASONE FUROATE Inactive DICLOFENAC SODIUM 50 MG TBEC 1 tablet by mouth four times daily DICLOFENAC SODIUM 50 MG TBEC 595302 DICLOFENAC SODIUM Inactive LISINOPRIL 20 MG TABS Take 1 tablet by mouth daily LISINOPRIL 20 MG TABS 455227 LISINOPRIL Inactive MOBIC 15 MG TABS 1 tab daily MOBIC 15 MG TABS 713211 MELOXICAM Inactive NEXIUM 40 MG CPDR 1 cap daily NEXIUM 40 MG CPDR 822726 ESOMEPRAZOLE MAGNESIUM Inactive CELEBREX 200 MG CAPS 1 tablet by mouth twice daily with meals CELEBREX 200 MG CAPS 781455 CELECOXIB Inactive FLEXERIL 10 MG TAB 1 [...] a day 05/05 AMOXICILLIN 500 MG CAPS 224386 AMOXICILLIN Inactive ZIAC 2.5-6.25 MG TAB 1 tablet every morning for high blood pressure ZIAC 2.5-6.25 MG TAB 909058 BISOPROLOL-HCTZ Inactive ZIAC 2.5-6.25 MG TAB 1 tablet daily for high blood pressure 10/27 ZIAC 2.5-6.25 MG TAB 056252 BISOPROLOL-HCTZ Inactive HYDROXYZINE HCL 25 MG TABS Take one (1) tablet by mouth twice a day HYDROXYZINE HCL 25 MG TABS 578636 HYDROXYZINE HCL Inactive ANUSOL-HC 25 MG SUPPOSITORY 1 rectally every 12 hours for irritation ANUSOL-HC 25 MG SUPPOSITORY 0823864 HYDROCORTISONE NAEL (RECTAL ) Inactive HYDROXYZINE HCL 25 MG TAB 1 two times a day as needed for anxiety HYDROXYZINE HCL 25 MG TAB 668453 HYDROXYZINE HCL Inactive FLOMAX 0.4 MG CAPS 1 capsule in the evening for night time urination. FLOMAX 0.4 MG CAPS 104648 TAMSULOSIN HCL Inactive CLEMASTINE FUMARATE 1.34 MG ORAL TABS 1 tab PO BID CLEMASTINE FUMARATE 1.34 MG ORAL TABS 307420 CLEMASTINE FUMARATE Inactive POLY-IRON 150 150 MG CAPS 1 tab po bid POLY-IRON 150 150 MG CAPS POLYSACCHARIDE IRON COMPLEX Inactive NYSTATIN 760552 UNIT/GM CREA apply to rash TID PRN NYSTATIN 857201 UNIT/GM CREA 559753 NYSTATIN Inactive [id number]-[id number]-XKCR 167-83-8 MG TABS 1 tab po daily [id number] 167-83-8 MG TABS [id number]-[id number] Inactive MS CONTIN 100 MG [id number] 1 by mouth twice a day MS CONTIN 100 MG [id number]-BKA MORPHINE SULFATE Inactive ENDOCET 10-325 MG TABS 1 by mouth twice a day ENDOCET 10-325 MG TABS 6002915 OXYCODONE-ACETAMINOPHEN Inactive HYDROXYZINE HCL 25 MG TAB take 1 every 4-6 hours as needed 07/01 HYDROXYZINE HCL 25 MG TAB 822482 HYDROXYZINE HCL Inactive ALPRAZOLAM 2 MG TABS 1 tablet by mouth three times daily as needed ALPRAZOLAM 2 MG TABS 875146 ALPRAZOLAM Inactive NEXIUM 40 MG CPDR 1 cap by mouth daily NEXIUM 40 MG CPDR 559760 ESOMEPRAZOLE MAGNESIUM Inactive Advance Directives Directive Description [...] ... - Chemistry sodium, serum 140 mmol/L 848-144 4884/03/25 carbon dioxide, venous blood 31.3 mmol/L 21.0-32.0 potassium, serum 4.0 mmol/L 3.5-5.2 chloride, serum 101 mmol/L 98-107 blood glucose 96 mg/dL 65-110 urea nitrogen, blood 7 mg/dL 7-18 creatinine, serum 0.94 mg/dL 0.55-1.30 alanine aminotransferase (SGPT), serum 23 U/L 12-78 aspartate aminotransferase (SGOT), serum 21 U/L 15-37 calcium, serum 8.9 mg/dL 8.5-10.1 bilirubin, serum, total 0.30 mg/dL 0.00-1.00 cholesterol, serum 169 mg/dL 065-508 9518/03/25 triglyceride, serum, fasting 143 mg/dL 30-200 HDL [...] 5.0-8.5 Encounters Code Encounter Date Provider Facility CPT-79783 Level 3 Est. Patient 11:07:[address] [facility] CPT-92266 Level 3 Est. Patient 11:24:[address] [facility] CPT-76469 Level 3 Est. Patient 15:19:54 [employer] Wily Zhang [facility] CPT-44829 Level 3 Est. Patient 10:04:45 CDT Wily Gonzalez [facility] CPT-52529 Level 3 Est. Patient 13:04:06 CDT Wily Gonzalez [facility] CPT-93596 Level 3 Est. Patient 12:23:04 CDT iWly Gonzalez [facility] CPT-06390 Level 3 Est. Patient 15:43:10 [employer] Wily Gonzalez [facility] CPT-09261 Level 3 Est. Patient 16:10:54 CDT Wily Gonzalez [facility] CPT-13649 Level 3 Est. Patient 19:50:51 CDT Wily Gonzalez [facility] CPT-86866 Level 3 Est. Patient 12:02:30 [employer] Wily Gonzalez [facility] CPT-21158 Level 3 Est. Patient 12:03:11 [employer] Wily Gonzalez [facility] CPT-03967 Level 3 Est. Patient 12:01:41 [employer] Wily Gonzalez [facility] CPT-86309 Level 3 Est. Patient 11:51:24 [employer] Wily Gonzalez [facility] CPT-09548 Level 3 Est. Patient 11:58:20 [employer] Wily Gonzalez [facility] CPT-26455 Level 3 Est. Patient 08:31:36 [employer] Wily Gonzalez [facility] CPT-40838 Level 3 Est. Patient 21:57:36 CDT Wily Gonzalez [facility] CPT-34182 Level 3 Est. Patient 10:49:58 CDT Esvin PAULA [facility] CPT-34123 Level 3 Est. Patient 11:22:52 CDT Esvin PAULA [facility] CPT-63458 Level 3 Est. Patient 13:49:41 CDT Esvin PAULA [facility] CPT-39747 Level 3 Est. Patient 11:54:53 CDT Esvin PAULA [facility] CPT-20063 Level 3 Est. Patient 09:07:11 CDT Esvin PAULA CPT-36483 Level 3 Est. Patient 13:52:47 CDT Esvin PAULA [facility] CPT-53880 Level 3 Est. Patient 11:26:46 CDT Esvin PAULA [facility] CPT-22470 Level 3 Est. Patient 10:25:00 [employer] Esvin PAULA [facility] CPT-57905 Level 3 Est. Patient 11:39:11 [employer] Esvin PAULA CPT-40575 Level 3 Est. Patient 13:24:24 [employer] Esvin PAULA CPT-49160 Level 3 Est. Patient 10:26:13 [employer] Esvin Hudson [facility] CPT-01440 Level 3 Est. Patient 10:21:21 CDT Esvin PAULA CPT-34678 Level 3 Est. Patient 10:26:30 CDT Esvin PAULA CPT-35440 Level 3 Est. Patient 09:16:37 CDT Esvin PAULA [facility]-45114 Level 3 Est. Patient 09:06:58 CDT Esvin PAULA CPT-28297 Level 3 Est. Patient 10:05:29 CDT Esvin PAULA CPT-69883 Level 3 Est. Patient 10:38:45 CDT Esvin Hudson [facility] CPT-85788 Level 3 Est. Patient 10:09:45 CDT Esvin Tristan PA CPT-66720 Level 3 Est. Patient 09:26:37 CDT Esvin Tristan [facility] CPT-49757 Level 3 Est. Patient 10:34:42 [employer] Esvin Tristan [facility] CPT-52786 Level 3 Est. Patient 10:45:47 [employer] Esvin Tristan [facility] CPT-29963 Level 3 Est. Patient 10:45:22 [employer] Esvin Alfred [facility] CPT-55901 Level 3 Est. Patient 14:18:30 [employer] Esvin Alfred [facility] CPT-68986 Level 3 Est. Patient 13:53:29 [employer] Esvin Tristan [facility] CPT-11783 Level 3 Est. Patient 10:34:11 CDT Esvin Tristan [facility] Procedures Code Procedure Name Date Entry Date Standard Description CPT-21601 Venipuncture Draw Fee 09:26:55 CDT CPT-27010 Venipuncture Draw Fee 11:55:52 CDT CPT-14282 Spec Collection and Handling Fee 09:16:37 CDT CPT-77902 Venipuncture Draw Fee 09:16:37 CDT
--- OUTSIDE RECORDS SUMMARY | 2018-02-26 14:45 | XMS REPORT | Clinical Summary ---
Author Author Admin, E Organization [facility] Address Unknown Phone Unavailable Allergies, Adverse Reactions, [...] Osteoporosis 733.00 Active Rose Bang Osteoporosis, unspecified ANKLE PAIN ICD-719.47 Inactive Wily Gonzalez DO [...] Date Stop Date Generic Name [facility] Status Provider Patient Instruction CHANTIX 1 MG TABS 1 twice a day VARENICLINE TARTRATE 03328060401 No Longer Active Wily Gonzalez DO Active RAUL-MAG 500-250 MG ORAL TABS Take one by mouth daily CALCIUM- MAGNESIUM 67688309641 Active Wily Gonzalez DO Active FOSAMAX 70 MG TABS 1 po qweek. Take 30min prior to first food/drink. Avoid lying down x 1 hour. ALENDRONATE SODIUM 98022406924 Active Rose Bang Active CALCIUM 600 MG ORAL TABS 1 po q day CALCIUM 51331817546 Active Rose Bang Active TRIAMCINOLONE ACETONIDE 0.1 % CREA Apply to affected area 3 times daily for up to 2 weeks TRIAMCINOLONE ACETONIDE 62662673319 Active Wily Gonzalez DO Active YGFRRBA-TNQNQIXXC-OPCH 167-83-8 MG TABS 1 tab po daily HDWLKVT-KHHQYOHZK-BGGS 98223237782 No Longer Active Wily Gonzalez DO Active NYSTATIN 580945 UNIT/GM CREA apply to rash TID PRN NYSTATIN 57972250264 No Longer Active Wily Gonzalez DO Active POLY-IRON 150 150 MG CAPS 1 tab po bid POLYSACCHARIDE IRON COMPLEX 98895411870 No Longer Active Wily Gonzalez DO Active FLONASE ALLERGY RELIEF 50 MCG/ACT NASAL SUSP 2 sprays each nostril every day FLUTICASONE PROPIONATE 48775692046 Active Jodi Lucas APRN Active CLEMASTINE FUMARATE 1.34 MG ORAL TABS 1 tab PO BID CLEMASTINE FUMARATE 21479948928 No Longer Active Wily Gonzalez DO Active FLOMAX 0.4 MG CAPS 1 capsule in the evening for night time urination. TAMSULOSIN HCL 52251871992 No Longer Active Wily Gonzalez DO Active PROTONIX 40 MG TBEC 1 po daily PANTOPRAZOLE SODIUM 92291547531 Active Agnieszka Yeung Active HYDROXYZINE HCL 25 MG TAB 1 two times a day as needed for anxiety HYDROXYZINE HCL 99122538495 No Longer Active Wily Gonzalez DO Active ANUSOL-HC 25 MG SUPPOSITORY 1 rectally every 12 hours for irritation HYDROCORTISONE NAEL (RECTAL) 35405847848 No Longer Active Wily Gonzalez DO Active HYDROXYZINE HCL 25 MG TABS Take one (1) tablet by mouth twice a day HYDROXYZINE HCL 88886949455 No Longer Active Wily Gonzalez DO Active ZIAC 2.5-6.25 MG TAB 1 tablet daily for high blood pressure 10/27 BISOPROLOL-HCTZ 26349574220 No Longer Active Wily Gonzalez DO Active ZIAC 2.5-6.25 MG TAB 1 tablet every morning for high blood pressure BISOPROLOL-HCTZ 04143867283 No Longer Active Wily Gonzalez DO Active AMOXICILLIN 500 MG CAPS Take one (1) tablet by mouth three times a day 05/05 AMOXICILLIN 35677911962 No Longer Active Wily Gonzalez DO Active MORPHINE SULFATE ER 100 MG CR-TABS Take one (1) tablet by mouth twice a day MORPHINE SULFATE 63292266900 No Longer Active Wily Gonzalez DO Active MORPHINE SULFATE ER 100 MG VC15I-XTT 1 capsule twice daily for chronic pain MORPHINE SULFATE 99852150127 Active Rose Bang Active CIALIS 10 MG TABS 1 every 72 hours as needed TADALAFIL 09606720610 No Longer Active Esvin PAULA Active FLONASE 50 MCG/ACT SUSP 2 SPRAY EACH NARE DAILY FLUTICASONE PROPIONATE 48259851830 No Longer Active Esvin PAULA Active CYCLOBENZAPRINE HCL 10 MG TABS Take one (1) tablet by mouth three times a day CYCLOBENZAPRINE HCL 51759259471 Active Lisa Berkowitz Active OPANA ER (CRUSH RESISTANT) 40 MG GU88R-ODS Take one (1) tablet by mouth twice a day OXYMORPHONE HCL 04877735274 No Longer Active Esvin PAULA Active PROAIR HFA 108 (90 BASE) MCG/ACT AERS 2 puffs every four hours as needed ALBUTEROL SULFATE 38649027088 No Longer Active Esvin PAULA Active CLEARLAX POWD 17gm q day prn constipation POLYETHYLENE GLYCOL 3350 53263561313 Active Wily Gonzalez DO Active MORPHINE SULFATE ER 100 MG ET88Y-WAY Take one (1) tablet by mouth twice a day MORPHINE SULFATE 37578802896 No Longer Active Esvin PAULA Active FLEXERIL 10 MG TAB 1 tablet by mouth 3 times daily as needed CYCLOBENZAPRINE HCL 34471618446 No Longer Active Esvin PAULA Active CELEBREX 200 MG CAPS 1 tablet by mouth twice daily with meals CELECOXIB 52679098686 No Longer Active Esvin PAULA Active NEXIUM 40 MG CPDR 1 cap daily ESOMEPRAZOLE MAGNESIUM 41141796926 No Longer Active Esvin PAULA Active MOBIC 15 MG TABS 1 tab daily MELOXICAM 85250048378 No Longer Active Esvin PAULA Active LISINOPRIL 20 MG TABS Take 1 tablet by mouth daily LISINOPRIL 67326573385 No Longer Active Esvin PAULA Active DICLOFENAC SODIUM 50 MG TBEC 1 tablet by mouth four times daily DICLOFENAC SODIUM 56761106064 No Longer Active Paula Cooney RN Active VERAMYST 27.5 MCG/SPRAY SUSP 2 spray each nare daily FLUTICASONE FUROATE 26771342950 No Longer Active Megan Vargas RN Active ENDOCET 10-325 MG TABS Take one (1) tablet by mouth three times a day OXYCODONE-ACETAMINOPHEN 26352596324 Active Rose Bang Active ALPRAZOLAM 2 MG TABS Take one (1) tablet by mouth three times a day ALPRAZOLAM 02499674388 Active Rose Bang Active NEXIUM 40 MG CPDR 1 cap by mouth daily ESOMEPRAZOLE MAGNESIUM 20552628532 No Longer Active Esvin PAULA Active ALPRAZOLAM 2 MG TABS 1 tablet by mouth three times daily as needed ALPRAZOLAM 37756745071 No Longer Active Esvin PAULA Active HYDROXYZINE HCL 25 MG TAB take 1 every 4-6 hours as needed 07/01 HYDROXYZINE HCL 89062186410 No Longer Active Esvin PAULA Active ENDOCET 10-325 MG TABS 1 by mouth twice a day OXYCODONE-ACETAMINOPHEN 11958080551 No Longer Active Esvin PAULA Active MS CONTIN 100 MG ER86F-EBQ 1 by mouth twice a day MORPHINE SULFATE 53616354259 No Longer Active Esvin PAULA Active SUDAFED 30 MG TAB 1-2 every 4-6 hours as needed PSEUDOEPHEDRINE HCL 06962648256 Active Rose Bang Active VERAMYST 27.5 MCG/SPRAY SUSP 2 spray each nare daily VERAMYST 27.5 MCG/SPRAY SUSP FLUTICASONE FUROATE Inactive DICLOFENAC SODIUM 50 MG TBEC 1 tablet by mouth four times daily DICLOFENAC SODIUM 50 MG TBEC 849737 DICLOFENAC SODIUM Inactive LISINOPRIL 20 MG TABS Take 1 tablet by mouth daily LISINOPRIL 20 MG TABS 216080 LISINOPRIL Inactive MOBIC 15 MG TABS 1 tab daily MOBIC 15 MG TABS 997082 MELOXICAM Inactive NEXIUM 40 MG CPDR 1 cap daily NEXIUM 40 MG CPDR 569262 ESOMEPRAZOLE MAGNESIUM Inactive CELEBREX 200 MG CAPS 1 tablet by mouth twice daily with meals CELEBREX 200 MG CAPS 401609 CELECOXIB Inactive FLEXERIL 10 MG TAB 1 tablet by mouth 3 times daily as needed FLEXERIL 10 MG TAB CYCLOBENZAPRINE HCL Inactive PROAIR HFA 108 (90 BASE) MCG/ACT AERS 2 puffs every four hours as needed PROAIR HFA 108 (90 BASE) MCG/ACT AERS ALBUTEROL SULFATE Inactive FLONASE 50 MCG/ACT SUSP 2 SPRAY EACH NARE DAILY FLONASE 50 MCG/ACT SUSP 8020645 FLUTICASONE PROPIONATE Inactive CIALIS 10 MG TABS 1 every 72 hours as needed CIALIS 10 MG TABS TADALAFIL Inactive MORPHINE SULFATE ER 100 MG CR-TABS Take one (1) tablet by mouth twice a day MORPHINE SULFATE ER 100 MG CR-TABS MORPHINE SULFATE Inactive AMOXICILLIN 500 MG CAPS Take one (1) tablet by mouth three times a day 05/05 AMOXICILLIN 500 MG CAPS 873449 AMOXICILLIN Inactive ZIAC 2.5-6.25 MG TAB 1 tablet every morning for high blood pressure ZIAC 2.5-6.25 MG TAB 826255 BISOPROLOL-HCTZ Inactive ZIAC 2.5-6.25 MG TAB 1 tablet daily for high blood pressure 10/27 ZIAC 2.5-6.25 MG TAB 559887 BISOPROLOL-HCTZ Inactive HYDROXYZINE HCL 25 MG TABS Take one (1) tablet by mouth twice a day HYDROXYZINE HCL 25 MG TABS 609677 HYDROXYZINE HCL Inactive ANUSOL-HC 25 MG SUPPOSITORY 1 rectally every 12 hours for irritation ANUSOL-HC 25 MG SUPPOSITORY 3961558 HYDROCORTISONE NAEL (RECTAL ) Inactive HYDROXYZINE HCL 25 MG TAB 1 two times a day as needed for anxiety HYDROXYZINE HCL 25 MG TAB 598587 HYDROXYZINE HCL Inactive FLOMAX 0.4 MG CAPS 1 capsule in the evening for night time urination. FLOMAX 0.4 MG CAPS 766458 TAMSULOSIN HCL Inactive CLEMASTINE FUMARATE 1.34 MG ORAL TABS 1 tab PO BID CLEMASTINE FUMARATE 1.34 MG ORAL TABS 353047 CLEMASTINE FUMARATE Inactive POLY-IRON 150 150 MG CAPS 1 tab po bid POLY-IRON 150 150 MG CAPS POLYSACCHARIDE IRON COMPLEX Inactive NYSTATIN 465886 UNIT/GM CREA apply to rash TID PRN NYSTATIN 255217 UNIT/GM CREA 433614 NYSTATIN Inactive SGZJKPD-IBCJICODC-EKJN 167-83-8 MG TABS 1 tab po daily WAYTCKU-KNXRUJISS-MDLN 167-83-8 MG TABS TYTPJCS-WGOPOUOZK-MCZG Inactive CHANTIX 1 MG TABS 1 twice a day CHANTIX 1 MG TABS VARENICLINE TARTRATE Inactive MS CONTIN 100 MG NV51E-JPC 1 by mouth twice a day MS CONTIN 100 MG [id number] MORPHINE SULFATE Inactive ENDOCET 10-325 MG TABS 1 by mouth twice a day ENDOCET 10-325 MG TABS 6154474 OXYCODONE-ACETAMINOPHEN Inactive HYDROXYZINE HCL 25 MG TAB take 1 every 4-6 hours as needed 07/01 HYDROXYZINE HCL 25 MG TAB 733059 HYDROXYZINE HCL Inactive ALPRAZOLAM 2 MG TABS 1 tablet by mouth three times daily as needed ALPRAZOLAM 2 MG TABS 389524 ALPRAZOLAM Inactive NEXIUM 40 MG CPDR 1 cap by mouth daily NEXIUM 40 MG CPDR 517305 ESOMEPRAZOLE MAGNESIUM Inactive Advance Directives Directive Description [...] Measured Encounters Code Encounter Date Provider Facility CPT-56157 Level 4 Est. Patient 10:10:03 CDT Wily Zhang [facility] CPT-72883 Level 3 Est. Patient 14:25:57 CDT Wily Zhang [facility] CPT-13834 Level 3 Est. Patient 09:51:37 [employer] Wily Gonzalez [facility] CPT-46756 Level 3 Est. Patient 11:07:48 CDT Wily Zhang Carlos [facility] CPT-18824 Level 3 Est. Patient 11:24:24 CDT Wily Vicente [facility] CPT-81191 Level 3 Est. Patient 15:19:54 [employer] Wily Gonzalez [facility] CPT-51433 Level 3 Est. Patient 10:04:45 CDT Wily Zhang [facility] CPT-01922 Level 3 Est. Patient 13:04:06 CDT Wily Gonzalez [facility] CPT-55472 Level 3 Est. Patient 12:23:04 CDT Wily Zhang [facility] CPT-77886 Level 3 Est. Patient 15:43:10 [employer] Wily Zhang [facility] CPT-58117 Level 3 Est. Patient 16:10:54 CDT Wily Zhang [facility] CPT-04346 Level 3 Est. Patient 19:50:51 CDT Wily Zhang [facility] CPT-60277 Level 3 Est. Patient 12:02:30 [employer] Wily Gonzalez [facility] CPT-86116 Level 3 Est. Patient 12:03:11 [employer] Wily Gonzalez [facility] CPT-60684 Level 3 Est. Patient 12:01:41 [employer] Wily Gonzalez [facility] CPT-98031 Level 3 Est. Patient 11:51:24 [employer] Wily Gonzalez [facility] CPT-99414 Level 3 Est. Patient 11:58:20 [employer] Wily Gonzalez [facility] CPT-81756 Level 3 Est. Patient 08:31:36 [employer] Wily Gonzalez [facility] CPT-50784 Level 3 Est. Patient 21:57:36 CDT Wily Gonzalez [facility] CPT-93359 Level 3 Est. Patient 10:49:58 CDT Esvin PAULA [facility] CPT-97954 Level 3 Est. Patient 11:22:52 CDT Esvin PAULA [facility] CPT-95142 Level 3 Est. Patient 13:49:41 CDT Esvin PAULA [facility] CPT-13509 Level 3 Est. Patient 11:54:53 CDT Esvin PAULA [facility] CPT-40399 Level 3 Est. Patient 09:07:11 CDT Esvin PAULA [facility] CPT-54564 Level 3 Est. Patient 13:52:47 CDT Esvin PAULA [facility] CPT-06691 Level 3 Est. Patient 11:26:46 CDT Esvin PAULA [facility] CPT-59577 Level 3 Est. Patient 10:25:00 [employer] Esvin PAULA [facility] CPT-13990 Level 3 Est. Patient 11:39:11 [employer] Esvin PAULA [facility] CPT-71186 Level 3 Est. Patient 13:24:24 [employer] Esvin PAULA [facility] CPT-73546 Level 3 Est. Patient 10:26:13 [employer] Esvin PAULA [facility] CPT-30913 Level 3 Est. Patient 10:21:[address] [facility]-78719 Level 3 Est. Patient 10:26:30 CDT Esvin PAULA [facility] CPT-13579 Level 3 Est. Patient 09:16:37 CDT Esvin PAULA [facility]-10042 Level 3 Est. Patient 09:06:58 CDT Esvin PAULA [facility] CPT-94887 Level 3 Est. Patient 10:05:29 CDT Esvin PAULA [facility] CPT-91641 Level 3 Est. Patient 10:38:45 CDT Esvin PAULA [facility] CPT-67598 Level 3 Est. Patient 10:09:45 CDT Esvin PAULA [facility] CPT-69180 Level 3 Est. Patient 09:26:37 CDT Esvin PAULA [facility] CPT-09150 Level 3 Est. Patient 10:34:42 [employer] Esvin PAULA [facility] CPT-03043 Level 3 Est. Patient 10:45:47 [employer]ER Esvin PAULA [facility]-19543 Level 3 Est. Patient 10:45:22 [employer] Esvin PAULA [facility] CPT-88847 Level 3 Est. Patient 14:18:30 [employer] Esvin Tristan [facility] CPT-13132 Level 3 Est. Patient 13:53:29 [employer] Esvin Hudson [facility] CPT-94560 Level 3 Est. Patient 10:34:11 CDT Esvin Hudson [facility] Procedures Code Procedure Name Date Entry Date Standard Description CPT-41840 Smoking Cessation counseling 10:10:03 CDT CPT-79724 Smoking Cessation counseling 14:25:57 CDT CPT-52306 Bone Density - XRAY USE ONLY 11:29:32 CDT CPT-59172 LS spine AP and Lat - XRAY USE ONLY 10:07:43 [employer] 10/26 CPT-12543 Venipuncture Draw Fee 09:51:16 [employer] CPT-78612 Smoking Cessation counseling 09:39:47 [employer] CPT-G0438 Initial Annual Wellness Exam 09:37:28 [employer] CPT-55327 Venipuncture Draw Fee 09:26:55 CDT CPT-64960 Venipuncture Draw Fee 11:55:52 CDT CPT-59723 Spec Collection and Handling Fee 09:16:37 CDT CPT-37566 Venipuncture Draw Fee 09:16:37 CDT
--- OUTSIDE RECORDS SUMMARY | 2018-02-26 14:46 | XMS REPORT | Clinical Summary ---
Author Author Admin, E Organization [employer] Address Unknown Phone Unavailable Allergies, Adverse [...] Instructions Start Date Stop Date Generic Name [facility] Status Provider Patient Instruction FOSAMAX 70 MG TABS 1 po qweek. Take 30min prior to first food/drink. Avoid lying down x 1 hour. ALENDRONATE SODIUM 60803917446 Active Rose Bang Active CALCIUM 600 MG ORAL TABS 1 po q day CALCIUM 83321347327 Active Rose Bang Active CHANTIX 1 MG TABS 1 twice a day VARENICLINE TARTRATE 98315694391 Active Wily Gonzalez DO Active TRIAMCINOLONE ACETONIDE 0.1 % CREA Apply to affected area 3 times daily for up to 2 weeks TRIAMCINOLONE ACETONIDE 34912457972 Active Wily Gonzalez DO Active [id number]-[id number]-FARZ 167-83-8 MG TABS 1 tab po daily [id number]-IFIZ 71691017431 No Longer Active Wily Gonzalez DO Active NYSTATIN 179129 UNIT/GM CREA apply to rash TID PRN NYSTATIN 47663147262 No Longer Active Wily Gonzalez DO Active POLY-IRON 150 150 MG CAPS 1 tab po bid POLYSACCHARIDE IRON COMPLEX 25012573640 No Longer Active Wily Gonzalez DO Active FLONASE ALLERGY RELIEF 50 MCG/ACT NASAL SUSP 2 sprays each nostril every day FLUTICASONE PROPIONATE 77651616781 Active Jodi Lucas APRN Active CLEMASTINE FUMARATE 1.34 MG ORAL TABS 1 tab PO BID CLEMASTINE FUMARATE 90053863801 No Longer Active Wily Gonzalez DO Active FLOMAX 0.4 MG CAPS 1 capsule in the evening for night time urination. TAMSULOSIN HCL 55586444462 No Longer Active Wily Gonzalez DO Active PROTONIX 40 MG TBEC 1 po daily PANTOPRAZOLE SODIUM 26603238327 Active Agnieszka Yeung Active HYDROXYZINE HCL 25 MG TAB 1 two times a day as needed for anxiety HYDROXYZINE HCL 74096802058 No Longer Active Wily Gonzalez DO Active ANUSOL-HC 25 MG SUPPOSITORY 1 rectally every 12 hours for irritation HYDROCORTISONE NAEL (RECTAL) 18839399656 No Longer Active Wily Gonzalez DO Active HYDROXYZINE HCL 25 MG TABS Take one (1) tablet by mouth twice a day HYDROXYZINE HCL 35019717520 No Longer Active Wily Gonzalez DO Active ZIAC 2.5-6.25 MG TAB 1 tablet daily for high blood pressure 10/27 BISOPROLOL-HCTZ 61132461219 No Longer Active Wily Gonzalez DO Active ZIAC 2.5-6.25 MG TAB 1 tablet every morning for high blood pressure BISOPROLOL-HCTZ 44099909007 No Longer Active Wily Gonzalez DO Active AMOXICILLIN 500 MG CAPS Take one (1) tablet by mouth three times a day 05/05 AMOXICILLIN 17698526551 No Longer Active Wily Gonzalez DO Active MORPHINE SULFATE ER 100 MG CR-TABS Take one (1) tablet by mouth twice a day MORPHINE SULFATE 13140797299 No Longer Active Wily Gonazlez DO Active MORPHINE SULFATE ER 100 MG [id number] 1 capsule twice daily for chronic pain MORPHINE SULFATE 88155883480 Active Wily Gonzalez DO Active CIALIS 10 MG TABS 1 every 72 hours as needed TADALAFIL 29916490601 No Longer Active Esvin PAULA Active FLONASE 50 MCG/ACT SUSP 2 SPRAY EACH NARE DAILY FLUTICASONE PROPIONATE 67029695094 No Longer Active Esvin PAULA Active CYCLOBENZAPRINE HCL 10 MG TABS Take one (1) tablet by mouth three times a day CYCLOBENZAPRINE HCL 20404699140 Active Lisa Berkowitz Active OPANA ER (CRUSH RESISTANT) 40 MG [id number] Take one (1) tablet by mouth twice a day OXYMORPHONE HCL 60453957502 No Longer Active Esvin PAULA Active PROAIR HFA 108 (90 BASE) MCG/ACT AERS 2 puffs every four hours as needed ALBUTEROL SULFATE 16327113797 No Longer Active Esvin PAULA Active CLEARLAX POWD 17gm q day prn constipation POLYETHYLENE GLYCOL 3350 73518378024 Active Wily Gonzalez DO Active MORPHINE SULFATE ER 100 MG [id number] Take one (1) tablet by mouth twice a day MORPHINE SULFATE 38025556590 No Longer Active Esvin PAULA Active FLEXERIL 10 MG TAB 1 tablet by mouth 3 times daily as needed CYCLOBENZAPRINE HCL 46728063957 No Longer Active Esvin PAULA Active CELEBREX 200 MG CAPS 1 tablet by mouth twice daily with meals CELECOXIB 24119049985 No Longer Active Esvin PAULA Active NEXIUM 40 MG CPDR 1 cap daily ESOMEPRAZOLE MAGNESIUM 53277287004 No Longer Active Esvin PAULA Active MOBIC 15 MG TABS 1 tab daily MELOXICAM 16144794732 No Longer Active Esvin PAULA Active LISINOPRIL 20 MG TABS Take 1 tablet by mouth daily LISINOPRIL 09570282975 No Longer Active Esvin PAULA Active DICLOFENAC SODIUM 50 MG TBEC 1 tablet by mouth four times daily DICLOFENAC SODIUM 64220874889 No Longer Active Paula Cooney RN Active VERAMYST 27.5 MCG/SPRAY SUSP 2 spray each nare daily FLUTICASONE FUROATE 33264849059 No Longer Active Megan Vargas RN Active ENDOCET 10-325 MG TABS Take one (1) tablet by mouth three times a day OXYCODONE-ACETAMINOPHEN 78322934398 Active Wily Gonzalez DO Active ALPRAZOLAM 2 MG TABS Take one (1) tablet by mouth three times a day ALPRAZOLAM 72416170006 Active Wily Gonzalez DO Active NEXIUM 40 MG CPDR 1 cap by mouth daily ESOMEPRAZOLE MAGNESIUM 92000154200 No Longer Active Esvin PAULA Active ALPRAZOLAM 2 MG TABS 1 tablet by mouth three times daily as needed ALPRAZOLAM 05413679259 No Longer Active Esvin PAULA Active HYDROXYZINE HCL 25 MG TAB take 1 every 4-6 hours as needed 07/01 HYDROXYZINE HCL 86106182012 No Longer Active Esvin PAULA Active ENDOCET 10-325 MG TABS 1 by mouth twice a day OXYCODONE-ACETAMINOPHEN 77912649703 No Longer Active Esvin PAULA Active MS CONTIN 100 MG [id number] 1 by mouth twice a day MORPHINE SULFATE 37115802256 No Longer Active Esvin PAULA Active SUDAFED 30 MG TAB 1-2 every 4-6 hours as needed PSEUDOEPHEDRINE HCL 66497434349 Active Marylou Melissa RPT,RMA Active VERAMYST 27.5 MCG/SPRAY SUSP 2 spray each nare daily VERAMYST 27.5 MCG/SPRAY SUSP FLUTICASONE FUROATE Inactive DICLOFENAC SODIUM 50 MG TBEC 1 tablet by mouth four times daily DICLOFENAC SODIUM 50 MG TBEC 150733 DICLOFENAC SODIUM Inactive LISINOPRIL 20 MG TABS Take 1 tablet by mouth daily LISINOPRIL 20 MG TABS 957713 LISINOPRIL Inactive MOBIC 15 MG TABS 1 tab daily MOBIC 15 MG TABS 402119 MELOXICAM Inactive NEXIUM 40 MG CPDR 1 cap daily NEXIUM 40 MG CPDR 390680 ESOMEPRAZOLE MAGNESIUM Inactive CELEBREX 200 MG CAPS 1 tablet by mouth twice daily with meals CELEBREX 200 MG CAPS 082227 CELECOXIB Inactive FLEXERIL 10 MG TAB 1 [...] a day 05/05 AMOXICILLIN 500 MG CAPS 660807 AMOXICILLIN Inactive ZIAC 2.5-6.25 MG TAB 1 tablet every morning for high blood pressure ZIAC 2.5-6.25 MG TAB 141475 BISOPROLOL-HCTZ Inactive ZIAC 2.5-6.25 MG TAB 1 tablet daily for high blood pressure 10/27 ZIAC 2.5-6.25 MG TAB 517893 BISOPROLOL-HCTZ Inactive HYDROXYZINE HCL 25 MG TABS Take one (1) tablet by mouth twice a day HYDROXYZINE HCL 25 MG TABS 595278 HYDROXYZINE HCL Inactive ANUSOL-HC 25 MG SUPPOSITORY 1 rectally every 12 hours for irritation ANUSOL-HC 25 MG SUPPOSITORY 3254069 HYDROCORTISONE NAEL (RECTAL ) Inactive HYDROXYZINE HCL 25 MG TAB 1 two times a day as needed for anxiety HYDROXYZINE HCL 25 MG TAB 266181 HYDROXYZINE HCL Inactive FLOMAX 0.4 MG CAPS 1 capsule in the evening for night time urination. FLOMAX 0.4 MG CAPS 795969 TAMSULOSIN HCL Inactive CLEMASTINE FUMARATE 1.34 MG ORAL TABS 1 tab PO BID CLEMASTINE FUMARATE 1.34 MG ORAL TABS 811872 CLEMASTINE FUMARATE Inactive POLY-IRON 150 150 MG CAPS 1 tab po bid POLY-IRON 150 150 MG CAPS POLYSACCHARIDE IRON COMPLEX Inactive NYSTATIN 898154 UNIT/GM CREA apply to rash TID PRN NYSTATIN 722263 UNIT/GM CREA 793175 NYSTATIN Inactive RAYJCFX-EBTTAKIIC-KVUI 167-83-8 MG TABS 1 tab po daily RAEPURQ-VMUPZGDRC-TIMC 167-83-8 MG TABS [id number] Inactive MS CONTIN 100 MG QU55K-PLI 1 by mouth twice a day MS CONTIN 100 MG [id number] MORPHINE SULFATE Inactive ENDOCET 10-325 MG TABS 1 by mouth twice a day ENDOCET 10-325 MG TABS 2448648 OXYCODONE-ACETAMINOPHEN Inactive HYDROXYZINE HCL 25 MG TAB take 1 every 4-6 hours as needed 07/01 HYDROXYZINE HCL 25 MG TAB 468662 HYDROXYZINE HCL Inactive ALPRAZOLAM 2 MG TABS 1 tablet by mouth three times daily as needed ALPRAZOLAM 2 MG TABS 016262 ALPRAZOLAM Inactive NEXIUM 40 MG CPDR 1 cap by mouth daily NEXIUM 40 MG CPDR 875397 ESOMEPRAZOLE MAGNESIUM Inactive Advance Directives Directive Description [...] Measured Encounters Code Encounter Date Provider Facility CPT-55597 Level 3 Est. Patient 09:51:37 [employer] HELPER Wily W Carlos [facility] CPT-78678 Level 3 Est. Patient 11:07:48 CDT Wily Gonzalez [facility] CPT-89269 Level 3 Est. Patient 11:24:24 CDT Wily Gonzalez [facility] CPT-32201 Level 3 Est. Patient 15:19:54 [employer]PER[employer] HELPER Wily Gonzalez [facility] CPT-59185 Level 3 Est. Patient 10:04:45 CDT Wily Gonzalez [facility] CPT-25559 Level 3 Est. Patient 13:04:06 CDT Wily Gonzalez [facility] CPT-86116 Level 3 Est. Patient 12:23:04 CDT Wily Gonzalez [facility] CPT-36238 Level 3 Est. Patient 15:43:10 [employer] OPERATOR HELPER Wily Gonzalez [facility] CPT-58837 Level 3 Est. Patient 16:10:54 CDT Wily Gonzalez [facility] CPT-73876 Level 3 Est. Patient 19:50:51 CDT Wily Gonzalez [facility] CPT-00661 Level 3 Est. Patient 12:02:30 [employer] PR[employer] OPERATOR HELPER Wily Gonzalez [facility] CPT-14137 Level 3 Est. Patient 12:03:11 [employer]KE PR[employer] OPERATOR HELPER Wily Gonzalez [facility] CPT-82883 Level 3 Est. Patient 12:01:41 [employer] PR[employer] OPERATOR HELPER Wily Gonzalez [facility] CPT-09490 Level 3 Est. Patient 11:51:24 [employer]KE PR[employer] OPERATOR HELPER Wily Zhang Carlos [facility] CPT-05046 Level 3 Est. Patient 11:58:20 [employer] PR[employer] OPERATOR HELPER Wily Vicente Carlos [facility] CPT-58026 Level 3 Est. Patient 08:31:36 [employer] OPERATOR HELPER Wily Gonzalez [facility] CPT-08425 Level 3 Est. Patient 21:57:36 CDT Wily Gonzalez [facility] CPT-03457 Level 3 Est. Patient 10:49:58 CDT Esvin PAULA [facility] CPT-89375 Level 3 Est. Patient 11:22:52 CDT Esvin PAULA [facility] CPT-19971 Level 3 Est. Patient 13:49:41 CDT Esvin PAULA [facility] CPT-96127 Level 3 Est. Patient 11:54:53 CDT Esvin Tristan PA [facility] CPT-87716 Level 3 Est. Patient 09:07:11 CDT Esvin PAULA [facility] CPT-74555 Level 3 Est. Patient 13:52:47 CDT Esvin PAULA [facility] CPT-33990 Level 3 Est. Patient 11:26:46 CDT Esvin PAULA [facility] CPT-68828 Level 3 Est. Patient 10:25:00 [employer]KE PR[employer] OPERATOR HELPER Esvin Zurich PA [facility] CPT-04329 Level 3 Est. Patient 11:39:11 [employer]KE PR[employer] OPERATOR HELPER Esvin PAULA [facility] CPT-11946 Level 3 Est. Patient 13:24:24 CAKE PR[employer] OPERATOR HELPER Esvin PAULA [facility] CPT-79277 Level 3 Est. Patient 10:26:13 CAKE PR[employer] OPERATOR HELPER Esvin PAULA [facility] CPT-53693 Level 3 Est. Patient 10:21:21 CDT Esvin PAULA [facility] CPT-26940 Level 3 Est. Patient 10:26:30 CDT Esvin PAULA [facility] CPT-57211 Level 3 Est. Patient 09:16:37 CDT Esvin PAULA [facility]-09394 Level 3 Est. Patient 09:06:58 CDT Esvin Priestner [facility] CPT-97211 Level 3 Est. Patient 10:05:29 CDT Esvin Hudson [facility] CPT-12169 Level 3 Est. Patient 10:38:45 CDT Esvin Hudson [facility] CPT-84396 Level 3 Est. Patient 10:09:45 CDT Esvin Hudson [facility] CPT-75366 Level 3 Est. Patient 09:26:37 CDT Esvin Zurich [facility] CPT-10775 Level 3 Est. Patient 10:34:42 [employer] OPERATOR HELPER Esvin Tristan [facility] CPT-48409 Level 3 Est. Patient 10:45:47 [employer] PR[employer] OPERATOR HELPER Esvin Zurich [facility] CPT-55225 Level 3 Est. Patient 10:45:22 [employer]KE PR[employer] OPERATOR HELPER Esvin [facility] CPT-50919 Level 3 Est. Patient 14:18:30 [employer]KE PR[employer] OPERATOR HELPER Esvin [facility] CPT-65150 Level 3 Est. Patient 13:53:29 [employer]KE PR[employer] OPERATOR HELPER Esvin [facility] CPT-14260 Level 3 Est. Patient 10:34:11 CDT Esvin [facility] Procedures Code Procedure Name Date Entry Date Standard Description CPT-05379 Bone Density - XRAY USE ONLY 11:29:32 CDT CPT-61667 LS spine AP and Lat - XRAY USE ONLY 10:07:43 [employer]PERATOR HELPER 10/26 CPT-04683 Venipuncture Draw Fee 09:51:16 [employer] OPERATOR HELPER CPT-36443 Smoking Cessation counseling 09:39:47 [employer]KE [employer] OPERATOR HELPER CPT-G0438 Initial Annual Wellness Exam 09:37:28 [employer]PERATOR HELPER CPT-63713 Venipuncture Draw Fee 09:26:55 CDT CPT-67525 Venipuncture Draw Fee 11:55:52 CDT CPT-77729 Spec Collection and Handling Fee 09:16:37 CDT CPT-75195 Venipuncture Draw Fee 09:16:37 CDT
--- OUTSIDE RECORDS SUMMARY | 2018-02-26 14:47 | XMS REPORT | Clinical Summary ---
Author Author Admin, E [employer] Address Unknown Phone Unavailable Allergies, Adverse Reactions, [...] hypertension BACK PAIN, LUMBAR 724.2 Active Esvin PAUAL Lumbago ANKLE PAIN 719.47 Active Esvin PAULA [...] DO U T I ICD-599.0 Inactive Wily Goznalez DO U R I ICD-465.9 Inactive Wily Gonzalez DO Medication List Medication Instructions Start Date Stop Date Generic Name NDC Status Provider Patient Instruction FLONASE ALLERGY RELIEF 50 MCG/ACT NASAL SUSP 2 sprays each nostril every day FLUTICASONE PROPIONATE 06712974699 Active Wily Gonzaelz DO Active CLEMASTINE FUMARATE 1.34 MG ORAL TABS 1 tab PO BID CLEMASTINE FUMARATE 52747539166 No Longer Active Wily Gonzalez DO Active FLOMAX 0.4 MG CAPS 1 capsule in the evening for night time urination. TAMSULOSIN HCL 20582116835 No Longer Active Wily Gonzalez DO Active PROTONIX 40 MG TBEC 1 po daily PANTOPRAZOLE SODIUM 29979718381 Active Wily Gonzalez DO Active HYDROXYZINE HCL 25 MG TAB 1 two times a day as needed for anxiety HYDROXYZINE HCL 66649397323 No Longer Active Wily Gonzalez DO Active ANUSOL-HC 25 MG SUPPOSITORY 1 rectally every 12 hours for irritation HYDROCORTISONE NAEL (RECTAL) 52305581703 No Longer Active Wily Gonzalez DO Active HYDROXYZINE HCL 25 MG TABS Take one (1) tablet by mouth twice a day HYDROXYZINE HCL 27860150868 No Longer Active Wily Gonzalez DO Active ZIAC 2.5-6.25 MG TAB 1 tablet daily for high blood pressure 10/27 BISOPROLOL-HCTZ 57975832811 No Longer Active Wily Gonzalez DO Active [id number] 167-83-8 MG TABS 1 tab po daily CALCIUM -MAGNESIUM-ZINC 14348497955 Active Wily Gonzalez DO Active NYSTATIN 799067 UNIT/GM CREA apply to rash TID PRN NYSTATIN 33567954761 Active Wily Gonzalez DO Active ZIAC 2.5-6.25 MG TAB 1 tablet every morning for high blood pressure BISOPROLOL-HCTZ 54085758912 No Longer Active Wily Gonzalez DO Active AMOXICILLIN 500 MG CAPS Take one (1) tablet by mouth three times a day 05/05 AMOXICILLIN 45144733829 No Longer Active Wily Gonzalez DO Active MORPHINE SULFATE ER 100 MG CR-TABS Take one (1) tablet by mouth twice a day MORPHINE SULFATE 09467404655 No Longer Active Wily Gonzalez DO Active MORPHINE SULFATE ER 100 MG [id number] 1 capsule twice daily for chronic pain MORPHINE SULFATE 79344361595 Active Marylou Melissa RPT,RMA Active CIALIS 10 MG TABS 1 every 72 hours as needed TADALAFIL 94662262583 No Longer Active Esvin PAULA Active FLONASE 50 MCG/ACT SUSP 2 SPRAY EACH NARE DAILY FLUTICASONE PROPIONATE 25312134836 No Longer Active Esvin PAULA Active CYCLOBENZAPRINE HCL 10 MG TABS Take one (1) tablet by mouth three times a day CYCLOBENZAPRINE HCL 42884857544 Active Wily Gonzalez DO Active OPANA ER (CRUSH RESISTANT) 40 MG [id number] Take one (1) tablet by mouth twice a day OXYMORPHONE HCL 28674818005 No Longer Active Esvin PAULA Active POLY-IRON 150 150 MG CAPS 1 tab po bid POLYSACCHARIDE IRON COMPLEX 93615987434 Active Wily Gonzalez DO Active PROAIR HFA 108 (90 BASE) MCG/ACT AERS 2 puffs every four hours as needed ALBUTEROL SULFATE 46442913194 No Longer Active Esvin PAULA Active CLEARLAX POWD 17gm q day prn constipation POLYETHYLENE GLYCOL 3350 38656752889 Active Kaylen Leigh MA Active MORPHINE SULFATE ER 100 MG [id number] Take one (1) tablet by mouth twice a day MORPHINE SULFATE 05532295462 No Longer Active Esvin PAULA Active FLEXERIL 10 MG TAB 1 tablet by mouth 3 times daily as needed CYCLOBENZAPRINE HCL 01662552413 No Longer Active Esvin PAULA Active CELEBREX 200 MG CAPS 1 tablet by mouth twice daily with meals CELECOXIB 04465030451 No Longer Active Esvin PAULA Active NEXIUM 40 MG CPDR 1 cap daily ESOMEPRAZOLE MAGNESIUM 55976752194 No Longer Active Esvin PAULA Active MOBIC 15 MG TABS 1 tab daily MELOXICAM 26912735900 No Longer Active Esvin PAULA Active LISINOPRIL 20 MG TABS Take 1 tablet by mouth daily LISINOPRIL 68511120337 No Longer Active Esvin PAULA Active DICLOFENAC SODIUM 50 MG TBEC 1 tablet by mouth four times daily DICLOFENAC SODIUM 30936702905 No Longer Active Paula Cooney RN Active VERAMYST 27.5 MCG/SPRAY SUSP 2 spray each nare daily FLUTICASONE FUROATE 47414453009 No Longer Active Megan Vargas RN Active ENDOCET 10-325 MG TABS Take one (1) tablet by mouth three times a day OXYCODONE-ACETAMINOPHEN 65551294387 Active Marylou Melissa RPT,RMA Active ALPRAZOLAM 2 MG TABS Take one (1) tablet by mouth three times a day ALPRAZOLAM 75343799469 Active Kaylen Leigh MA Active NEXIUM 40 MG CPDR 1 cap by mouth daily ESOMEPRAZOLE MAGNESIUM 74495597980 No Longer Active Esvin PAULA Active ALPRAZOLAM 2 MG TABS 1 tablet by mouth three times daily as needed ALPRAZOLAM 95162364022 No Longer Active Esvin PAULA Active HYDROXYZINE HCL 25 MG TAB take 1 every 4-6 hours as needed 07/01 HYDROXYZINE HCL 27862583277 No Longer Active Esvin PAULA Active ENDOCET 10-325 MG TABS 1 by mouth twice a day OXYCODONE-ACETAMINOPHEN 67890245367 No Longer Active Esvin PAULA Active MS CONTIN 100 MG [id number] 1 by mouth twice a day MORPHINE SULFATE 93125474154 No Longer Active Esvin PAULA Active SUDAFED 30 MG TAB 1-2 every 4-6 hours as needed PSEUDOEPHEDRINE HCL 58877049984 Active Marylou Melissa RPT,RMA Active VERAMYST 27.5 MCG/SPRAY SUSP 2 spray each nare daily VERAMYST 27.5 MCG/SPRAY SUSP FLUTICASONE FUROATE Inactive DICLOFENAC SODIUM 50 MG TBEC 1 tablet by mouth four times daily DICLOFENAC SODIUM 50 MG TBEC 498609 DICLOFENAC SODIUM Inactive LISINOPRIL 20 MG TABS Take 1 tablet by mouth daily LISINOPRIL 20 MG TABS 428887 LISINOPRIL Inactive MOBIC 15 MG TABS 1 tab daily MOBIC 15 MG TABS 006731 MELOXICAM Inactive NEXIUM 40 MG CPDR 1 cap daily NEXIUM 40 MG CPDR 007373 ESOMEPRAZOLE MAGNESIUM Inactive CELEBREX 200 MG CAPS 1 tablet by mouth twice daily with meals CELEBREX 200 MG CAPS 999446 CELECOXIB Inactive FLEXERIL 10 MG TAB 1 tablet by mouth 3 times daily as needed FLEXERIL 10 MG TAB CYCLOBENZAPRINE HCL Inactive PROAIR HFA 108 (90 BASE) MCG/ACT AERS 2 puffs every four hours as needed PROAIR HFA 108 (90 BASE) MCG/ACT AERS ALBUTEROL SULFATE Inactive FLONASE 50 MCG/ACT SUSP 2 SPRAY EACH NARE DAILY FLONASE 50 MCG/ACT SUSP 760555 FLUTICASONE PROPIONATE Inactive CIALIS 10 MG TABS 1 every 72 hours as needed CIALIS 10 MG TABS TADALAFIL Inactive MORPHINE SULFATE ER 100 MG CR-TABS Take one (1) tablet by mouth twice a day MORPHINE SULFATE ER 100 MG CR-TABS MORPHINE SULFATE Inactive AMOXICILLIN 500 MG CAPS Take one (1) tablet by mouth three times a day 05/05 AMOXICILLIN 500 MG CAPS 162402 AMOXICILLIN Inactive ZIAC 2.5-6.25 MG TAB 1 tablet every morning for high blood pressure ZIAC 2.5-6.25 MG TAB 723219 BISOPROLOL-HCTZ Inactive ZIAC 2.5-6.25 MG TAB 1 tablet daily for high blood pressure 10/27 ZIAC 2.5-6.25 MG TAB 374336 BISOPROLOL-HCTZ Inactive HYDROXYZINE HCL 25 MG TABS Take one (1) tablet by mouth twice a day HYDROXYZINE HCL 25 MG TABS 745321 HYDROXYZINE HCL Inactive ANUSOL-HC 25 MG SUPPOSITORY 1 rectally every 12 hours for irritation ANUSOL-HC 25 MG SUPPOSITORY 9052696 HYDROCORTISONE NAEL (RECTAL ) Inactive HYDROXYZINE HCL 25 MG TAB 1 two times a day as needed for anxiety HYDROXYZINE HCL 25 MG TAB 185972 HYDROXYZINE HCL Inactive FLOMAX 0.4 MG CAPS 1 capsule in the evening for night time urination. FLOMAX 0.4 MG CAPS 726969 TAMSULOSIN HCL Inactive CLEMASTINE FUMARATE 1.34 MG ORAL TABS 1 tab PO BID CLEMASTINE FUMARATE 1.34 MG ORAL TABS 073218 CLEMASTINE FUMARATE Inactive MS CONTIN 100 MG [id number] 1 by mouth twice a day MS CONTIN 100 MG [id number] MORPHINE SULFATE Inactive ENDOCET 10-325 MG TABS 1 by mouth twice a day ENDOCET 10-325 MG TABS 2835411 OXYCODONE-ACETAMINOPHEN Inactive HYDROXYZINE HCL 25 MG TAB take 1 every 4-6 hours as needed 07/01 HYDROXYZINE HCL 25 MG TAB 575060 HYDROXYZINE HCL Inactive ALPRAZOLAM 2 MG TABS 1 tablet by mouth three times daily as needed ALPRAZOLAM 2 MG TABS 507248 ALPRAZOLAM Inactive NEXIUM 40 MG CPDR 1 cap by mouth daily NEXIUM 40 MG CPDR 704799 ESOMEPRAZOLE MAGNESIUM Inactive Advance Directives Directive Description [...] ... - Chemistry sodium, serum 140 mmol/L 480-034 2773/03/25 carbon dioxide, venous blood 31.3 mmol/L 21.0-32.0 potassium, serum 4.0 mmol/L 3.5-5.2 chloride, serum 101 mmol/L 98-107 blood glucose 96 mg/dL 65-110 urea nitrogen, blood 7 mg/dL 7-18 creatinine, serum 0.94 mg/dL 0.55-1.30 alanine aminotransferase (SGPT), serum 23 U/L 12-78 aspartate aminotransferase (SGOT), serum 21 U/L 15-37 calcium, serum 8.9 mg/dL 8.5-10.1 bilirubin, serum, total 0.30 mg/dL 0.00-1.00 cholesterol, serum 169 mg/dL 137-815 2704/03/25 triglyceride, serum, fasting 143 mg/dL 30-200 HDL [...] 5.0-8.5 Encounters Code Encounter Date Provider Facility CPT-74421 Level 3 Est. Patient 11:24:24 CDT Wily Zhang [facility] CPT-92501 Level 3 Est. Patient 15:19:54 NORMALIZER Wily Zhang [facility] CPT-60480 Level 3 Est. Patient 10:04:45 CDT Wily Zhang [facility] CPT-48750 Level 3 Est. Patient 13:04:06 CDT Wily Zhang [facility] CPT-33478 Level 3 Est. Patient 12:23:04 CDT Wily Zhang [facility] CPT-04681 Level 3 Est. Patient 15:43:10 NORMALIZER Wily Gonzalez [facility] CPT-86653 Level 3 Est. Patient 16:10:54 CDT Wily Gonzalez [facility] CPT-80922 Level 3 Est. Patient 19:50:51 CDT Wily Gonzalez [facility] CPT-00749 Level 3 Est. Patient 12:02:30 NORMALIZER Wily Gonzalez [facility] CPT-03695 Level 3 Est. Patient 12:03:11 NORMALIZER Wily Gonzalez [facility] CPT-59122 Level 3 Est. Patient 12:01:41 NORMALIZER Wily Gonzalez [facility] CPT-88537 Level 3 Est. Patient 11:51:24 NORMALIZER Wily Gonzalez [facility] CPT-91247 Level 3 Est. Patient 11:58:20 NORMALIZER Wily Gonzalez [facility] CPT-36759 Level 3 Est. Patient 08:31:36 NORMALIZER Wily Gonzalez [facility] CPT-73762 Level 3 Est. Patient 21:57:36 CDT Wily Gonzalez [facility] CPT-81646 Level 3 Est. Patient 10:49:58 CDT Esvin [facility] CPT-99502 Level 3 Est. Patient 11:22:52 CDT Esvin [facility] CPT-34010 Level 3 Est. Patient 13:49:41 CDT Esvin PAULA [facility] CPT-00476 Level 3 Est. Patient 11:54:53 CDT Esvin [facility] CPT-95118 Level 3 Est. Patient 09:07:11 CDT Esvin Hudson [facility] CPT-83764 Level 3 Est. Patient 13:52:47 CDT Esvin PAULA [facility] CPT-04453 Level 3 Est. Patient 11:26:46 CDT Esvin Hudson [facility] CPT-24102 Level 3 Est. Patient 10:25:00 NORMALIZER Esvin Hudson [facility] CPT-93187 Level 3 Est. Patient 11:39:11 NORMALIZER Esvin Hudson [facility] CPT-35661 Level 3 Est. Patient 13:24:24 NORMALIZER Esvin PAULA [facility] CPT-68016 Level 3 Est. Patient 10:26:13 NORMALIZER Esvin Hudson [facility] CPT-66300 Level 3 Est. Patient 10:21:21 CDT Esvin Hudson [facility] CPT-76100 Level 3 Est. Patient 10:26:30 CDT Esvin Hudson [facility] CPT-23489 Level 3 Est. Patient 09:16:37 CDT Esvin Hudson [facility] CPT-69600 Level 3 Est. Patient 09:06:58 CDT Esvin Hudson [facility] CPT-02184 Level 3 Est. Patient 10:05:29 CDT Esvin Hudson [facility] CPT-73639 Level 3 Est. Patient 10:38:45 CDT Esvin PAULA [facility] CPT-09622 Level 3 Est. Patient 10:09:45 CDT Esvin Tristan [facility] CPT-02680 Level 3 Est. Patient 09:26:37 CDT Esvin Tristan [facility] CPT-02719 Level 3 Est. Patient 10:34:42 NORMALIZER Esvin Tristan [facility] CPT-25475 Level 3 Est. Patient 10:45:47 NORMALIZER Esvin Hudson [facility] CPT-78327 Level 3 Est. Patient 10:45:22 NORMALIZER Esvin Hudson [facility] CPT-49035 Level 3 Est. Patient 14:18:30 NORMALIZER Esvin [facility] CPT-51961 Level 3 Est. Patient 13:53:29 NORMALIZER Esvin Lyford [facility] CPT-43218 Level 3 Est. Patient 10:34:11 CDT Esvin [facility] Procedures Code Procedure Name Date Entry Date Standard Description CPT-99785 Venipuncture Draw Fee 09:26:55 CDT CPT-58955 Venipuncture Draw Fee 11:55:52 CDT CPT-41908 Spec Collection and Handling Fee 09:16:37 CDT CPT-04356 Venipuncture Draw Fee 09:16:37 CDT
--- OUTSIDE RECORDS SUMMARY | 2018-02-26 14:48 | XMS REPORT | Clinical Summary ---
Author Author Admin, E Organization [employer] Address Unknown Phone Unavailable Allergies, Adverse Reactions, [...] essential hypertension BACK PAIN, LUMBAR 724.2 Active Esivn PAULA Lumbago ANKLE PAIN 719.47 Resolved Wily [...] Instructions Start Date Stop Date Generic Name [facility] Status Provider Patient Instruction CHANTIX 1 MG TABS 1 twice a day VARENICLINE TARTRATE 31381392598 No Longer Active Wily Gonzalez DO Active RAUL-MAG 500-250 MG ORAL TABS Take one by mouth daily CALCIUM- MAGNESIUM 47861860120 Active Wily Gonzalez DO Active FOSAMAX 70 MG TABS 1 po qweek. Take 30min prior to first food/drink. Avoid lying down x 1 hour. ALENDRONATE SODIUM 80087892978 Active Rose Bang Active CALCIUM 600 MG ORAL TABS 1 po q day CALCIUM 78186550138 Active Rose Bang Active TRIAMCINOLONE ACETONIDE 0.1 % CREA Apply to affected area 3 times daily for up to 2 weeks TRIAMCINOLONE ACETONIDE 07041692278 Active Wily Gonzalez DO Active [id number] 167-83-8 MG TABS 1 tab po daily [id number] 48925193800 No Longer Active Wily Gonzalez DO Active NYSTATIN 328549 UNIT/GM CREA apply to rash TID PRN NYSTATIN 46330365354 No Longer Active Wily Gonzalez DO Active POLY-IRON 150 150 MG CAPS 1 tab po bid POLYSACCHARIDE IRON COMPLEX 55018528015 No Longer Active Wily Gonzalez DO Active FLONASE ALLERGY RELIEF 50 MCG/ACT NASAL SUSP 2 sprays each nostril every day FLUTICASONE PROPIONATE 89486585250 Active Jodi Lucas APRN Active CLEMASTINE FUMARATE 1.34 MG ORAL TABS 1 tab PO BID CLEMASTINE FUMARATE 57076374458 No Longer Active Wily Gonzalez DO Active FLOMAX 0.4 MG CAPS 1 capsule in the evening for night time urination. TAMSULOSIN HCL 70955903454 No Longer Active Wily Gonzalez DO Active PROTONIX 40 MG TBEC 1 po daily PANTOPRAZOLE SODIUM 63531375714 Active Agnieszka Yeung Active HYDROXYZINE HCL 25 MG TAB 1 two times a day as needed for anxiety HYDROXYZINE HCL 99739034495 No Longer Active Wily Gonzalez DO Active ANUSOL-HC 25 MG SUPPOSITORY 1 rectally every 12 hours for irritation HYDROCORTISONE NAEL (RECTAL) 25342066050 No Longer Active Wily Gonzalez DO Active HYDROXYZINE HCL 25 MG TABS Take one (1) tablet by mouth twice a day HYDROXYZINE HCL 98559086442 No Longer Active Wily Gonzalez DO Active ZIAC 2.5-6.25 MG TAB 1 tablet daily for high blood pressure 10/27 BISOPROLOL-HCTZ 90263122766 No Longer Active Wily Gonzalez DO Active ZIAC 2.5-6.25 MG TAB 1 tablet every morning for high blood pressure BISOPROLOL-HCTZ 34493318306 No Longer Active Wily Gonzalez DO Active AMOXICILLIN 500 MG CAPS Take one (1) tablet by mouth three times a day 05/05 AMOXICILLIN 19909697327 No Longer Active Wily Gonzalez DO Active MORPHINE SULFATE ER 100 MG CR-TABS Take one (1) tablet by mouth twice a day MORPHINE SULFATE 60979766687 No Longer Active Wily Gonzalez DO Active MORPHINE SULFATE ER 100 MG [id number] 1 capsule twice daily for chronic pain MORPHINE SULFATE 91174373798 Active Rose Bang Active CIALIS 10 MG TABS 1 every 72 hours as needed TADALAFIL 39191617482 No Longer Active Esvin PAULA Active FLONASE 50 MCG/ACT SUSP 2 SPRAY EACH NARE DAILY FLUTICASONE PROPIONATE 09641746649 No Longer Active Esvin PAULA Active CYCLOBENZAPRINE HCL 10 MG TABS Take one (1) tablet by mouth three times a day CYCLOBENZAPRINE HCL 64302326403 Active Lisa Berkowitz Active OPANA ER (CRUSH RESISTANT) 40 MG [id number] Take one (1) tablet by mouth twice a day OXYMORPHONE HCL 62024592045 No Longer Active Esvin PAULA Active PROAIR HFA 108 (90 BASE) MCG/ACT AERS 2 puffs every four hours as needed ALBUTEROL SULFATE 63114412328 No Longer Active Esvin PAULA Active CLEARLAX POWD 17gm q day prn constipation POLYETHYLENE GLYCOL 3350 63644122842 Active Wily Gonzalez DO Active MORPHINE SULFATE ER 100 MG [id number] Take one (1) tablet by mouth twice a day MORPHINE SULFATE 17294378438 No Longer Active Esvin PAULA Active FLEXERIL 10 MG TAB 1 tablet by mouth 3 times daily as needed CYCLOBENZAPRINE HCL 60419655804 No Longer Active Esvin PAULA Active CELEBREX 200 MG CAPS 1 tablet by mouth twice daily with meals CELECOXIB 16161848175 No Longer Active Esvin PAULA Active NEXIUM 40 MG CPDR 1 cap daily ESOMEPRAZOLE MAGNESIUM 50910853801 No Longer Active Esvin PAULA Active MOBIC 15 MG TABS 1 tab daily MELOXICAM 66856338920 No Longer Active Esvin PAULA Active LISINOPRIL 20 MG TABS Take 1 tablet by mouth daily LISINOPRIL 89231615934 No Longer Active Esvin PAULA Active DICLOFENAC SODIUM 50 MG TBEC 1 tablet by mouth four times daily DICLOFENAC SODIUM 53656414147 No Longer Active Paula Cooney RN Active VERAMYST 27.5 MCG/SPRAY SUSP 2 spray each nare daily FLUTICASONE FUROATE 61135728927 No Longer Active Megan Vargas RN Active ENDOCET 10-325 MG TABS Take one (1) tablet by mouth three times a day OXYCODONE-ACETAMINOPHEN 32959849134 Active Rose Bang Active ALPRAZOLAM 2 MG TABS Take one (1) tablet by mouth three times a day ALPRAZOLAM 35365313728 Active Lisa Berkowitz Active NEXIUM 40 MG CPDR 1 cap by mouth daily ESOMEPRAZOLE MAGNESIUM 69229359986 No Longer Active Esvin PAULA Active ALPRAZOLAM 2 MG TABS 1 tablet by mouth three times daily as needed ALPRAZOLAM 06220065700 No Longer Active Esvin PAULA Active HYDROXYZINE HCL 25 MG TAB take 1 every 4-6 hours as needed 07/01 HYDROXYZINE HCL 41233196761 No Longer Active Esvin PAULA Active ENDOCET 10-325 MG TABS 1 by mouth twice a day OXYCODONE-ACETAMINOPHEN 03747012199 No Longer Active Esvin PAULA Active MS CONTIN 100 MG [id number] 1 by mouth twice a day MORPHINE SULFATE 34769489779 No Longer Active Esvin PAULA Active SUDAFED 30 MG TAB 1-2 every 4-6 hours as needed PSEUDOEPHEDRINE HCL 21816246677 Active Rose Bang Active VERAMYST 27.5 MCG/SPRAY SUSP 2 spray each nare daily VERAMYST 27.5 MCG/SPRAY SUSP FLUTICASONE FUROATE Inactive DICLOFENAC SODIUM 50 MG TBEC 1 tablet by mouth four times daily DICLOFENAC SODIUM 50 MG TBEC 716877 DICLOFENAC SODIUM Inactive LISINOPRIL 20 MG TABS Take 1 tablet by mouth daily LISINOPRIL 20 MG TABS 993536 LISINOPRIL Inactive MOBIC 15 MG TABS 1 tab daily MOBIC 15 MG TABS 459652 MELOXICAM Inactive NEXIUM 40 MG CPDR 1 cap daily NEXIUM 40 MG CPDR 230684 ESOMEPRAZOLE MAGNESIUM Inactive CELEBREX 200 MG CAPS 1 tablet by mouth twice daily with meals CELEBREX 200 MG CAPS 649788 CELECOXIB Inactive FLEXERIL 10 MG TAB 1 tablet by mouth 3 times daily as needed FLEXERIL 10 MG TAB CYCLOBENZAPRINE HCL Inactive PROAIR HFA 108 (90 BASE) MCG/ACT AERS 2 puffs every four hours as needed PROAIR HFA 108 (90 BASE) MCG/ACT AERS ALBUTEROL SULFATE Inactive FLONASE 50 MCG/ACT SUSP 2 SPRAY EACH NARE DAILY FLONASE 50 MCG/ACT SUSP 1632849 FLUTICASONE PROPIONATE Inactive CIALIS 10 MG TABS 1 every 72 hours as needed CIALIS 10 MG TABS TADALAFIL Inactive MORPHINE SULFATE ER 100 MG CR-TABS Take one (1) tablet by mouth twice a day MORPHINE SULFATE ER 100 MG CR-TABS MORPHINE SULFATE Inactive AMOXICILLIN 500 MG CAPS Take one (1) tablet by mouth three times a day 05/05 AMOXICILLIN 500 MG CAPS 627678 AMOXICILLIN Inactive ZIAC 2.5-6.25 MG TAB 1 tablet every morning for high blood pressure ZIAC 2.5-6.25 MG TAB 951783 BISOPROLOL-HCTZ Inactive ZIAC 2.5-6.25 MG TAB 1 tablet daily for high blood pressure 10/27 ZIAC 2.5-6.25 MG TAB 162112 BISOPROLOL-HCTZ Inactive HYDROXYZINE HCL 25 MG TABS Take one (1) tablet by mouth twice a day HYDROXYZINE HCL 25 MG TABS 272075 HYDROXYZINE HCL Inactive ANUSOL-HC 25 MG SUPPOSITORY 1 rectally every 12 hours for irritation ANUSOL-HC 25 MG SUPPOSITORY 1570937 HYDROCORTISONE NAEL (RECTAL ) Inactive HYDROXYZINE HCL 25 MG TAB 1 two times a day as needed for anxiety HYDROXYZINE HCL 25 MG TAB 325361 HYDROXYZINE HCL Inactive FLOMAX 0.4 MG CAPS 1 capsule in the evening for night time urination. FLOMAX 0.4 MG CAPS 750857 TAMSULOSIN HCL Inactive CLEMASTINE FUMARATE 1.34 MG ORAL TABS 1 tab PO BID CLEMASTINE FUMARATE 1.34 MG ORAL TABS 134657 CLEMASTINE FUMARATE Inactive POLY-IRON 150 150 MG CAPS 1 tab po bid POLY-IRON 150 150 MG CAPS POLYSACCHARIDE IRON COMPLEX Inactive NYSTATIN 482901 UNIT/GM CREA apply to rash TID PRN NYSTATIN 631823 UNIT/GM CREA 208851 NYSTATIN Inactive VNEYNFK-FUMPSRKNP-JVVG 167-83-8 MG TABS 1 tab po daily HOFQBXD-CSPGXGYXA-XOBC 167-83-8 MG TABS HHMZXXW-RLSCTXAIB-QGPB Inactive CHANTIX 1 MG TABS 1 twice a day CHANTIX 1 MG TABS VARENICLINE TARTRATE Inactive MS CONTIN 100 MG [id number] 1 by mouth twice a day MS CONTIN 100 MG [id number] MORPHINE SULFATE Inactive ENDOCET 10-325 MG TABS 1 by mouth twice a day ENDOCET 10-325 MG TABS 6790467 OXYCODONE-ACETAMINOPHEN Inactive HYDROXYZINE HCL 25 MG TAB take 1 every 4-6 hours as needed 07/01 HYDROXYZINE HCL 25 MG TAB 191377 HYDROXYZINE HCL Inactive ALPRAZOLAM 2 MG TABS 1 tablet by mouth three times daily as needed ALPRAZOLAM 2 MG TABS 013230 ALPRAZOLAM Inactive NEXIUM 40 MG CPDR 1 cap by mouth daily NEXIUM 40 MG CPDR 739652 ESOMEPRAZOLE MAGNESIUM Inactive Advance Directives Directive Description [...] Measured Encounters Code Encounter Date Provider Facility CPT-46433 Level 4 Est. Patient 10:10:03 CDT Wily Zhang [facility] CPT-05505 Level 3 Est. Patient 14:25:57 CDT Wily Zhang [facility] CPT-50038 Level 3 Est. Patient 09:51:37 CARD DECORATOR Wily Gonzalez [facility] CPT-25464 Level 3 Est. Patient 11:07:48 CDT Wily Zhang Carlos [facility] CPT-92372 Level 3 Est. Patient 11:24:24 CDT Wily Vicente [facility] CPT-94260 Level 3 Est. Patient 15:19:54 CARD DECORATOR Wily Gonzalez [facility] CPT-09347 Level 3 Est. Patient 10:04:45 CDT Wily Zhang [facility] CPT-67312 Level 3 Est. Patient 13:04:06 CDT Wily Gonzalez [facility] CPT-64247 Level 3 Est. Patient 12:23:04 CDT Wily Zhang [facility] CPT-76993 Level 3 Est. Patient 15:43:10 CARD DECORATOR Wily Zhang [facility] CPT-25278 Level 3 Est. Patient 16:10:54 CDT Wily Zhang [facility] CPT-99830 Level 3 Est. Patient 19:50:51 CDT Wily Zhang [facility] CPT-71195 Level 3 Est. Patient 12:02:30 CARD DECORATOR Wily Gonzalez [facility] CPT-00748 Level 3 Est. Patient 12:03:11 CARD DECORATOR Wily Gonzalez [facility] CPT-27075 Level 3 Est. Patient 12:01:41 CARD DECORATOR Wily Gonzalez [facility] CPT-37680 Level 3 Est. Patient 11:51:24 CARD DECORATOR Wily Gonzalez [facility] CPT-39006 Level 3 Est. Patient 11:58:20 CARD DECORATOR Wily Gonzalez [facility] CPT-30656 Level 3 Est. Patient 08:31:36 CARD DECORATOR Wily Gonzalez [facility] CPT-08098 Level 3 Est. Patient 21:57:36 CDT Wily Gonzalez [facility] CPT-42280 Level 3 Est. Patient 10:49:58 CDT Esvin PAULA [facility] CPT-75294 Level 3 Est. Patient 11:22:52 CDT Esvin PAULA [facility] CPT-50506 Level 3 Est. Patient 13:49:41 CDT Esvin PAULA [facility] CPT-33287 Level 3 Est. Patient 11:54:53 CDT Esvin PAULA [facility] CPT-00799 Level 3 Est. Patient 09:07:11 CDT Esvin PAULA [facility] CPT-97663 Level 3 Est. Patient 13:52:47 CDT Esvin PAULA [facility] CPT-39173 Level 3 Est. Patient 11:26:46 CDT Esvin PAULA [facility] CPT-49042 Level 3 Est. Patient 10:25:00 CARD DECORATOR Esvin PAULA [facility] CPT-16949 Level 3 Est. Patient 11:39:11 CARD DECORATOR Esvin PAULA [facility] CPT-94726 Level 3 Est. Patient 13:24:24 CARD DECORATOR Esvin PAULA [facility] CPT-92398 Level 3 Est. Patient 10:26:13 CARD DECORATOR Esvin PAULA [facility] CPT-24081 Level 3 Est. Patient 10:21:21 CDT Esvin PAULA [facility]-94624 Level 3 Est. Patient 10:26:30 CDT Esvin PAULA [facility] CPT-29459 Level 3 Est. Patient 09:16:37 CDT Esvin PAULA [facility]-91882 Level 3 Est. Patient 09:06:58 CDT Esvin PAULA [facility] CPT-67533 Level 3 Est. Patient 10:05:29 CDT Esvin PAULA [facility] CPT-74297 Level 3 Est. Patient 10:38:45 CDT Esvin PAULA [facility] CPT-42541 Level 3 Est. Patient 10:09:45 CDT Esvin PAULA [facility] CPT-81258 Level 3 Est. Patient 09:26:37 CDT Esvin PAULA [facility] CPT-10202 Level 3 Est. Patient 10:34:42 CARD DECORATOR Esvin PAULA [facility] CPT-97594 Level 3 Est. Patient 10:45:47 CARD DECORATOR Esvin PAULA [facility]-81817 Level 3 Est. Patient 10:45:22 CARD DECORATOR Esvin PAULA [facility] CPT-16335 Level 3 Est. Patient 14:18:30 CARD DECORATOR Esvin [facility] CPT-49690 Level 3 Est. Patient 13:53:29 CARD DECORATOR Esvin [facility] CPT-40854 Level 3 Est. Patient 10:34:11 CDT Esvin [facility] Procedures Code Procedure Name Date Entry Date Standard Description CPT-95345 Smoking Cessation counseling 10:10:03 CDT CPT-85830 Smoking Cessation counseling 14:25:57 CDT CPT-88552 Bone Density - XRAY USE ONLY 11:29:32 CDT CPT-80548 LS spine AP and Lat - XRAY USE ONLY 10:07:43 CARD DECORATOR 10/26 CPT-82699 Venipuncture Draw Fee 09:51:16 CARD DECORATOR CPT-66551 Smoking Cessation counseling 09:39:47 CARD DECORATOR CPT-G0438 Initial Annual Wellness Exam 09:37:28 CARD DECORATOR CPT-38713 Venipuncture Draw Fee 09:26:55 CDT CPT-12463 Venipuncture Draw Fee 11:55:52 CDT CPT-88463 Spec Collection and Handling Fee 09:16:37 CDT CPT-97675 Venipuncture Draw Fee 09:16:37 CDT
--- OUTSIDE RECORDS SUMMARY | 2018-02-26 14:48 | XMS REPORT | Clinical Summary ---
Author Author Admin, E Organization [facility] Address Unknown Phone Unavailable Allergies, Adverse Reactions, [...] lying down x 1 hour. ALENDRONATE SODIUM [id number] Active Rose Bang Active CALCIUM 600 MG ORAL TABS 1 po q day CALCIUM 62135615439 Active Rose Bang Active CHANTIX 1 MG TABS 1 twice a day VARENICLINE TARTRATE 69110875958 Active Wily Gonzalez DO Active TRIAMCINOLONE ACETONIDE 0.1 % CREA Apply to affected area 3 times daily for up to 2 weeks TRIAMCINOLONE ACETONIDE 67244948560 Active Wily Gonzalez DO Active BESABHG-WMCBYDIIU-FGRX 167-83-8 MG TABS 1 tab po daily RNMCMLC-EMKVDQLTL-IQWL 32138508611 No Longer Active Wily Gonzalez DO Active NYSTATIN 250111 UNIT/GM CREA apply to rash TID PRN NYSTATIN 60064507106 No Longer Active Wily Gonzalez DO Active POLY-IRON 150 150 MG CAPS 1 tab po bid POLYSACCHARIDE IRON COMPLEX 39423320307 No Longer Active Wily Gonzalez DO Active FLONASE ALLERGY RELIEF 50 MCG/ACT NASAL SUSP 2 sprays each nostril every day FLUTICASONE PROPIONATE 73522798107 Active Jodi Lucas APRN Active CLEMASTINE FUMARATE 1.34 MG ORAL TABS 1 tab PO BID CLEMASTINE FUMARATE 57755281247 No Longer Active Wily Gonzalez DO Active FLOMAX 0.4 MG CAPS 1 capsule in the evening for night time urination. TAMSULOSIN HCL 49776149070 No Longer Active Wily Gonzalez DO Active PROTONIX 40 MG TBEC 1 po daily PANTOPRAZOLE SODIUM 27978574832 Active Agnieszka Yeung Active HYDROXYZINE HCL 25 MG TAB 1 two times a day as needed for anxiety HYDROXYZINE HCL 05301750736 No Longer Active Wily Gonzalez DO Active ANUSOL-HC 25 MG SUPPOSITORY 1 rectally every 12 hours for irritation HYDROCORTISONE NAEL (RECTAL) 61129632258 No Longer Active Wily Gonzalez DO Active HYDROXYZINE HCL 25 MG TABS Take one (1) tablet by mouth twice a day HYDROXYZINE HCL 98058543120 No Longer Active Wily Gonzalez DO Active ZIAC 2.5-6.25 MG TAB 1 tablet daily for high blood pressure 10/27 BISOPROLOL-HCTZ 43960135035 No Longer Active Wily Gonzalez DO Active ZIAC 2.5-6.25 MG TAB 1 tablet every morning for high blood pressure BISOPROLOL-HCTZ 99827850925 No Longer Active Wily Gonzalez DO Active AMOXICILLIN 500 MG CAPS Take one (1) tablet by mouth three times a day 05/05 AMOXICILLIN 11784754868 No Longer Active Wily Gonzalez DO Active MORPHINE SULFATE ER 100 MG CR-TABS Take one (1) tablet by mouth twice a day MORPHINE SULFATE 74912597641 No Longer Active Wily Gonzalez DO Active MORPHINE SULFATE ER 100 MG [id number] 1 capsule twice daily for chronic pain MORPHINE SULFATE 55795669480 Active Wily Gonzalez DO Active CIALIS 10 MG TABS 1 every 72 hours as needed TADALAFIL 41206120912 No Longer Active Esvin PAULA Active FLONASE 50 MCG/ACT SUSP 2 SPRAY EACH NARE DAILY FLUTICASONE PROPIONATE 97122324136 No Longer Active Esvin PAULA Active CYCLOBENZAPRINE HCL 10 MG TABS Take one (1) tablet by mouth three times a day CYCLOBENZAPRINE HCL 29864415146 Active Lisa Berkowitz Active OPANA ER (CRUSH RESISTANT) 40 MG [id number] Take one (1) tablet by mouth twice a day OXYMORPHONE HCL 13465107354 No Longer Active Esvin PAULA Active PROAIR HFA 108 (90 BASE) MCG/ACT AERS 2 puffs every four hours as needed ALBUTEROL SULFATE 80919333183 No Longer Active Esvin PAULA Active CLEARLAX POWD 17gm q day prn constipation POLYETHYLENE GLYCOL 3350 26924950886 Active Wily Gonzalez DO Active MORPHINE SULFATE ER 100 MG IO23S-WSO Take one (1) tablet by mouth twice a day MORPHINE SULFATE 01214274348 No Longer Active Esvin PAULA Active FLEXERIL 10 MG TAB 1 tablet by mouth 3 times daily as needed CYCLOBENZAPRINE HCL 64614157644 No Longer Active Esvin PAULA Active CELEBREX 200 MG CAPS 1 tablet by mouth twice daily with meals CELECOXIB 77782398249 No Longer Active Esvin PAULA Active NEXIUM 40 MG CPDR 1 cap daily ESOMEPRAZOLE MAGNESIUM 97518406981 No Longer Active Esvin PAULA Active MOBIC 15 MG TABS 1 tab daily MELOXICAM 63965649370 No Longer Active Esvin PAULA Active LISINOPRIL 20 MG TABS Take 1 tablet by mouth daily LISINOPRIL 35231544030 No Longer Active Esvin PAULA Active DICLOFENAC SODIUM 50 MG TBEC 1 tablet by mouth four times daily DICLOFENAC SODIUM 16610255253 No Longer Active Paula Cooney RN Active VERAMYST 27.5 MCG/SPRAY SUSP 2 spray each nare daily FLUTICASONE FUROATE 66149164579 No Longer Active Megan Vargas RN Active ENDOCET 10-325 MG TABS Take one (1) tablet by mouth three times a day OXYCODONE-ACETAMINOPHEN 85522087154 Active Wily Gonzalez DO Active ALPRAZOLAM 2 MG TABS Take one (1) tablet by mouth three times a day ALPRAZOLAM 67398302137 Active Wily Gonzalez DO Active NEXIUM 40 MG CPDR 1 cap by mouth daily ESOMEPRAZOLE MAGNESIUM 16508072670 No Longer Active Esvin PAULA Active ALPRAZOLAM 2 MG TABS 1 tablet by mouth three times daily as needed ALPRAZOLAM 75286247524 No Longer Active Esvin PAULA Active HYDROXYZINE HCL 25 MG TAB take 1 every 4-6 hours as needed 07/01 HYDROXYZINE HCL 66447894451 No Longer Active Esvin PAULA Active ENDOCET 10-325 MG TABS 1 by mouth twice a day OXYCODONE-ACETAMINOPHEN 88427517909 No Longer Active Esvin PAULA Active MS CONTIN 100 MG HG75W-SYC 1 by mouth twice a day MORPHINE SULFATE 69506033770 No Longer Active Esvin PAULA Active SUDAFED 30 MG TAB 1-2 every 4-6 hours as needed PSEUDOEPHEDRINE HCL 74155855162 Active Marylou Melissa RPT,RMA Active VERAMYST 27.5 MCG/SPRAY SUSP 2 spray each nare daily VERAMYST 27.5 MCG/SPRAY SUSP FLUTICASONE FUROATE Inactive DICLOFENAC SODIUM 50 MG TBEC 1 tablet by mouth four times daily DICLOFENAC SODIUM 50 MG TBEC 720582 DICLOFENAC SODIUM Inactive LISINOPRIL 20 MG TABS Take 1 tablet by mouth daily LISINOPRIL 20 MG TABS 390381 LISINOPRIL Inactive MOBIC 15 MG TABS 1 tab daily MOBIC 15 MG TABS 648959 MELOXICAM Inactive NEXIUM 40 MG CPDR 1 cap daily NEXIUM 40 MG CPDR 078541 ESOMEPRAZOLE MAGNESIUM Inactive CELEBREX 200 MG CAPS 1 tablet by mouth twice daily with meals CELEBREX 200 MG CAPS 401213 CELECOXIB Inactive FLEXERIL 10 MG TAB 1 [...] a day 05/05 AMOXICILLIN 500 MG CAPS 237544 AMOXICILLIN Inactive ZIAC 2.5-6.25 MG TAB 1 tablet every morning for high blood pressure ZIAC 2.5-6.25 MG TAB 569927 BISOPROLOL-HCTZ Inactive ZIAC 2.5-6.25 MG TAB 1 tablet daily for high blood pressure 10/27 ZIAC 2.5-6.25 MG TAB 393197 BISOPROLOL-HCTZ Inactive HYDROXYZINE HCL 25 MG TABS Take one (1) tablet by mouth twice a day HYDROXYZINE HCL 25 MG TABS 640254 HYDROXYZINE HCL Inactive ANUSOL-HC 25 MG SUPPOSITORY 1 rectally every 12 hours for irritation ANUSOL-HC 25 MG SUPPOSITORY 9444881 HYDROCORTISONE NAEL (RECTAL ) Inactive HYDROXYZINE HCL 25 MG TAB 1 two times a day as needed for anxiety HYDROXYZINE HCL 25 MG TAB 457198 HYDROXYZINE HCL Inactive FLOMAX 0.4 MG CAPS 1 capsule in the evening for night time urination. FLOMAX 0.4 MG CAPS 162059 TAMSULOSIN HCL Inactive CLEMASTINE FUMARATE 1.34 MG ORAL TABS 1 tab PO BID CLEMASTINE FUMARATE 1.34 MG ORAL TABS 377397 CLEMASTINE FUMARATE Inactive POLY-IRON 150 150 MG CAPS 1 tab po bid POLY-IRON 150 150 MG CAPS POLYSACCHARIDE IRON COMPLEX Inactive NYSTATIN 101140 UNIT/GM CREA apply to rash TID PRN NYSTATIN 479353 UNIT/GM CREA 155752 NYSTATIN Inactive XITSRBE-ULCUHKBNT-BGKZ 167-83-8 MG TABS 1 tab po daily BJXAULW-ARDUDYBIO-KTTP 167-83-8 MG TABS XKGLGCM-[id number]-RJCL Inactive MS CONTIN 100 MG [id number]-MAG 1 by mouth twice a day MS CONTIN 100 MG QY04I-RSN MORPHINE SULFATE Inactive ENDOCET 10-325 MG TABS 1 by mouth twice a day ENDOCET 10-325 MG TABS 1170434 OXYCODONE-ACETAMINOPHEN Inactive HYDROXYZINE HCL 25 MG TAB take 1 every 4-6 hours as needed 07/01 HYDROXYZINE HCL 25 MG TAB 239331 HYDROXYZINE HCL Inactive ALPRAZOLAM 2 MG TABS 1 tablet by mouth three times daily as needed ALPRAZOLAM 2 MG TABS 682744 ALPRAZOLAM Inactive NEXIUM 40 MG CPDR 1 cap by mouth daily NEXIUM 40 MG CPDR 276857 ESOMEPRAZOLE MAGNESIUM Inactive Advance Directives Directive Description [...] ... - Chemistry sodium, serum 140 mmol/L 374-694 3997/03/25 carbon dioxide, venous blood 31.3 mmol/L 21.0-32.0 potassium, serum 4.0 mmol/L 3.5-5.2 chloride, serum 101 mmol/L 98-107 blood glucose 96 mg/dL 65-110 urea nitrogen, blood 7 mg/dL 7-18 creatinine, serum 0.94 mg/dL 0.55-1.30 alanine aminotransferase (SGPT), serum 23 U/L 12-78 aspartate aminotransferase (SGOT), serum 21 U/L 15-37 calcium, serum 8.9 mg/dL 8.5-10.1 bilirubin, serum, total 0.30 mg/dL 0.00-1.00 cholesterol, serum 169 mg/dL 001-249 0461/03/25 triglyceride, serum, fasting 143 mg/dL 30-200 HDL [...] 5.0-8.5 Encounters Code Encounter Date Provider Facility CPT-02949 Level 3 Est. Patient 09:51:37 INSURANCE PRODUC[facility] CPT-53168 Level 3 Est. Patient 11:07:48 CDT [facility] CPT-14700 Level 3 Est. Patient 11:24:24 CDT [facility] CPT-38267 Level 3 Est. Patient 15:19:54 [facility]ANCE [employer] CPT-17566 Level 3 Est. Patient 10:04:45 CDT Wily Gonzalez [facility] CPT-82930 Level 3 Est. Patient 13:04:06 CDT Wily Gonzalez [facility] CPT-07939 Level 3 Est. Patient 12:23:04 CDT Wily Gonzalez [facility] CPT-39192 Level 3 Est. Patient 15:43:10 INSURANCE PROD[employer]ER Wily Gonzalez [facility] CPT-98413 Level 3 Est. Patient 16:10:54 CDT Wily Gonzalez [facility] CPT-82056 Level 3 Est. Patient 19:50:51 CDT Wily Gonzalez [facility] CPT-28237 Level 3 Est. Patient 12:02:30 INSURANCE PRODUCER Wily Gonzalez [facility] CPT-85249 Level 3 Est. Patient 12:03:11 INSURANCE PRODUCER Wily Gonzalez [facility] CPT-08935 Level 3 Est. Patient 12:01:41 INSURANCE PRODUCER Wily Gonzalez [facility] CPT-24838 Level 3 Est. Patient 11:51:24 INSURANCE PRODUCER Wily Gonzalez [facility] CPT-31498 Level 3 Est. Patient 11:58:20 INSURANCE PRODUCER Wily Gonzalez [facility] CPT-71883 Level 3 Est. Patient 08:31:36 INSURANCE PRODUCER Wily Gonzalez [facility] CPT-69160 Level 3 Est. Patient 21:57:36 CDT Wily Gonzalez [facility] CPT-93831 Level 3 Est. Patient 10:49:58 CDT [facility] CPT-17552 Level 3 Est. Patient 11:22:52 CDT [facility] CPT-62355 Level 3 Est. Patient 13:49:41 CDT [facility] CPT-12942 Level 3 Est. Patient 11:54:53 CDT Esvin PAULA [facility] CPT-39134 Level 3 Est. Patient 09:07:11 CDT Esvin Hudson [facility] CPT-82437 Level 3 Est. Patient 13:52:47 CDT Esvin PAULA [facility] CPT-74336 Level 3 Est. Patient 11:26:46 CDT Esvin PAULA [facility] CPT-61764 Level 3 Est. Patient 10:25:00 INSURANCE PRODUCER Esvin PAULA [facility] CPT-49687 Level 3 Est. Patient 11:39:11 INSURANCE PRODUCER Esvin Hudson [facility] CPT-76140 Level 3 Est. Patient 13:24:24 INSURANCE PRODUCER Esvin PAULA [facility] CPT-79650 Level 3 Est. Patient 10:26:13 INSURANCE PRODUCER Esvin PAULA [facility] CPT-85231 Level 3 Est. Patient 10:21:21 CDT Esvin Hudson [facility] CPT-83225 Level 3 Est. Patient 10:26:30 CDT Esvin PAULA [facility] CPT-25230 Level 3 Est. Patient 09:16:37 CDT Esvin Hudson [facility] CPT-93184 Level 3 Est. Patient 09:06:58 CDT Esvin PAULA [facility] CPT-11059 Level 3 Est. Patient 10:05:29 CDT Esvin PAULA [facility] CPT-21682 Level 3 Est. Patient 10:38:45 CDT Esvin PAULA [facility] CPT-17051 Level 3 Est. Patient 10:09:45 CDT Esvin Hduson [facility] CPT-19553 Level 3 Est. Patient 09:26:37 CDT Esvin PAULA [facility] CPT-51694 Level 3 Est. Patient 10:34:42 INSURANCE PRODUCER Esvin Hudson [facility] CPT-84050 Level 3 Est. Patient 10:45:47 INSURANCE PRODUCER Esvin Hudson [facility] CPT-16249 Level 3 Est. Patient 10:45:22 INSURANCE PRODUCER Esvin Hudson [facility] CPT-67100 Level 3 Est. Patient 14:18:30 INSURANCE PRODUCER Esvin Tristan [facility] CPT-77026 Level 3 Est. Patient 13:53:29 INSURANCE PRODUCER Esvin Earlham [facility] CPT-05441 Level 3 Est. Patient 10:34:11 CDT Esvin Earlham [facility] Procedures Code Procedure Name Date Entry Date Standard Description CPT-43478 Bone Density - XRAY USE ONLY 11:29:32 CDT CPT-38269 LS spine AP and Lat - XRAY USE ONLY 10:07:43 INSURANCE PRODUCER 10/26 CPT-50968 Venipuncture Draw Fee 09:51:16 INSURANCE [employer]ODUCER CPT-59419 Smoking Cessation counseling 09:39:47 INSURANCE PRODUCER CPT-G0438 Initial Annual Wellness Exam 09:37:28 INSURANCE PRODUCER CPT-84991 Venipuncture Draw Fee 09:26:55 CDT CPT-92879 Venipuncture Draw Fee 11:55:52 CDT CPT-50947 Spec Collection and Handling Fee 09:16:37 CDT CPT-09266 Venipuncture Draw Fee 09:16:37 CDT
--- OUTSIDE RECORDS SUMMARY | 2018-02-26 14:49 | XMS REPORT | Clinical Summary ---
Author Author Admin, E Organization [employer] Address Unknown Phone Unavailable Allergies, Adverse Reactions, [...] DO Anemia, unspecified Tinea corporis 110.5 Resolved iWly Gonzalez DO Dermatophytosis of the body Tinea [...] Generic Name NDC Status Provider Patient Instruction [id number]-[id number] 167-83-8 MG TABS 1 tab po daily ENZNBOD-GWEVYOOWT-OMYT [id number] No Longer Active Wily Gonzalez DO Active NYSTATIN 803684 UNIT/GM CREA apply to rash TID PRN NYSTATIN 14039455584 No Longer Active Wily Gonzalez DO Active POLY-IRON 150 150 MG CAPS 1 tab po bid POLYSACCHARIDE IRON COMPLEX 12141838410 No Longer Active Wily Gonzalez DO Active FLONASE ALLERGY RELIEF 50 MCG/ACT NASAL SUSP 2 sprays each nostril every day FLUTICASONE PROPIONATE 30403230237 Active Wily Gonzalez DO Active CLEMASTINE FUMARATE 1.34 MG ORAL TABS 1 tab PO BID CLEMASTINE FUMARATE 62694614526 No Longer Active Wily Gonzalez DO Active FLOMAX 0.4 MG CAPS 1 capsule in the evening for night time urination. TAMSULOSIN HCL 35141599428 No Longer Active Wily Gonzalez DO Active PROTONIX 40 MG TBEC 1 po daily PANTOPRAZOLE SODIUM 43069818638 Active Agnieszka Yeung Active HYDROXYZINE HCL 25 MG TAB 1 two times a day as needed for anxiety HYDROXYZINE HCL 49275087131 No Longer Active Wily Gonzalez DO Active ANUSOL-HC 25 MG SUPPOSITORY 1 rectally every 12 hours for irritation HYDROCORTISONE NAEL (RECTAL) 53828775603 No Longer Active Wily Gonzalez DO Active HYDROXYZINE HCL 25 MG TABS Take one (1) tablet by mouth twice a day HYDROXYZINE HCL 75792517018 No Longer Active Wily Gonzalez DO Active ZIAC 2.5-6.25 MG TAB 1 tablet daily for high blood pressure 10/27 BISOPROLOL-HCTZ 53197007111 No Longer Active Wily Gonzalez DO Active ZIAC 2.5-6.25 MG TAB 1 tablet every morning for high blood pressure BISOPROLOL-HCTZ 62172429872 No Longer Active Wily Gonzalez DO Active AMOXICILLIN 500 MG CAPS Take one (1) tablet by mouth three times a day 05/05 AMOXICILLIN 76769042982 No Longer Active Wily Gonzalez DO Active MORPHINE SULFATE ER 100 MG CR-TABS Take one (1) tablet by mouth twice a day MORPHINE SULFATE 22860524154 No Longer Active Wily Gonzalez DO Active MORPHINE SULFATE ER 100 MG [id number] 1 capsule twice daily for chronic pain MORPHINE SULFATE 99848207827 Active Marylou Melissa RPT,RMA Active CIALIS 10 MG TABS 1 every 72 hours as needed TADALAFIL 68380008692 No Longer Active Esvin PAULA Active FLONASE 50 MCG/ACT SUSP 2 SPRAY EACH NARE DAILY FLUTICASONE PROPIONATE 46140337194 No Longer Active Esvin PAULA Active CYCLOBENZAPRINE HCL 10 MG TABS Take one (1) tablet by mouth three times a day CYCLOBENZAPRINE HCL 37056592427 Active Wily Gonzalez DO Active OPANA ER (CRUSH RESISTANT) 40 MG [id number] Take one (1) tablet by mouth twice a day OXYMORPHONE HCL 90197155910 No Longer Active Esvin PAULA Active PROAIR HFA 108 (90 BASE) MCG/ACT AERS 2 puffs every four hours as needed ALBUTEROL SULFATE 21795771666 No Longer Active Esvin PAULA Active CLEARLAX POWD 17gm q day prn constipation POLYETHYLENE GLYCOL 3350 05605167028 Active Kaylen Leigh MA Active MORPHINE SULFATE ER 100 MG [id number] Take one (1) tablet by mouth twice a day MORPHINE SULFATE 98149005897 No Longer Active Esvin PAULA Active FLEXERIL 10 MG TAB 1 tablet by mouth 3 times daily as needed CYCLOBENZAPRINE HCL 74118842510 No Longer Active Esvin PAULA Active CELEBREX 200 MG CAPS 1 tablet by mouth twice daily with meals CELECOXIB 06829745501 No Longer Active Esvin PAULA Active NEXIUM 40 MG CPDR 1 cap daily ESOMEPRAZOLE MAGNESIUM 29611020953 No Longer Active Esvin PAULA Active MOBIC 15 MG TABS 1 tab daily MELOXICAM 02728757747 No Longer Active Esvin PAULA Active LISINOPRIL 20 MG TABS Take 1 tablet by mouth daily LISINOPRIL 96744813905 No Longer Active Esvin PAULA Active DICLOFENAC SODIUM 50 MG TBEC 1 tablet by mouth four times daily DICLOFENAC SODIUM 92648362256 No Longer Active Paula Cooney RN Active VERAMYST 27.5 MCG/SPRAY SUSP 2 spray each nare daily FLUTICASONE FUROATE 15894668848 No Longer Active Megan Alicia CARVAJAL Active ENDOCET 10-325 MG TABS Take one (1) tablet by mouth three times a day OXYCODONE-ACETAMINOPHEN 31584567357 Active Marylou Melissa RPT,RMA Active ALPRAZOLAM 2 MG TABS Take one (1) tablet by mouth three times a day ALPRAZOLAM 23696240648 Active Kaylen Leigh MA Active NEXIUM 40 MG CPDR 1 cap by mouth daily ESOMEPRAZOLE MAGNESIUM 32571639684 No Longer Active Esvin PAULA Active ALPRAZOLAM 2 MG TABS 1 tablet by mouth three times daily as needed ALPRAZOLAM 37289711769 No Longer Active Esvin PAULA Active HYDROXYZINE HCL 25 MG TAB take 1 every 4-6 hours as needed 07/01 HYDROXYZINE HCL 40316549770 No Longer Active Esvin PAULA Active ENDOCET 10-325 MG TABS 1 by mouth twice a day OXYCODONE-ACETAMINOPHEN 19434093590 No Longer Active Esvin PAULA Active MS CONTIN 100 MG [id number] 1 by mouth twice a day MORPHINE SULFATE 99662654686 No Longer Active Esvin PAULA Active SUDAFED 30 MG TAB 1-2 every 4-6 hours as needed PSEUDOEPHEDRINE HCL 26275436353 Active Marylou Melissa RPT,RMA Active VERAMYST 27.5 MCG/SPRAY SUSP 2 spray each nare daily VERAMYST 27.5 MCG/SPRAY SUSP FLUTICASONE FUROATE Inactive DICLOFENAC SODIUM 50 MG TBEC 1 tablet by mouth four times daily DICLOFENAC SODIUM 50 MG TBEC 580030 DICLOFENAC SODIUM Inactive LISINOPRIL 20 MG TABS Take 1 tablet by mouth daily LISINOPRIL 20 MG TABS 052865 LISINOPRIL Inactive MOBIC 15 MG TABS 1 tab daily MOBIC 15 MG TABS 339912 MELOXICAM Inactive NEXIUM 40 MG CPDR 1 cap daily NEXIUM 40 MG CPDR 259118 ESOMEPRAZOLE MAGNESIUM Inactive CELEBREX 200 MG CAPS 1 tablet by mouth twice daily with meals CELEBREX 200 MG CAPS 687706 CELECOXIB Inactive FLEXERIL 10 MG TAB 1 [...] a day 05/05 AMOXICILLIN 500 MG CAPS 340084 AMOXICILLIN Inactive ZIAC 2.5-6.25 MG TAB 1 tablet every morning for high blood pressure ZIAC 2.5-6.25 MG TAB 066170 BISOPROLOL-HCTZ Inactive ZIAC 2.5-6.25 MG TAB 1 tablet daily for high blood pressure 10/27 ZIAC 2.5-6.25 MG TAB 281713 BISOPROLOL-HCTZ Inactive HYDROXYZINE HCL 25 MG TABS Take one (1) tablet by mouth twice a day HYDROXYZINE HCL 25 MG TABS 450407 HYDROXYZINE HCL Inactive ANUSOL-HC 25 MG SUPPOSITORY 1 rectally every 12 hours for irritation ANUSOL-HC 25 MG SUPPOSITORY 8876875 HYDROCORTISONE NAEL (RECTAL ) Inactive HYDROXYZINE HCL 25 MG TAB 1 two times a day as needed for anxiety HYDROXYZINE HCL 25 MG TAB 441852 HYDROXYZINE HCL Inactive FLOMAX 0.4 MG CAPS 1 capsule in the evening for night time urination. FLOMAX 0.4 MG CAPS 100564 TAMSULOSIN HCL Inactive CLEMASTINE FUMARATE 1.34 MG ORAL TABS 1 tab PO BID CLEMASTINE FUMARATE 1.34 MG ORAL TABS 227857 CLEMASTINE FUMARATE Inactive POLY-IRON 150 150 MG CAPS 1 tab po bid POLY-IRON 150 150 MG CAPS POLYSACCHARIDE IRON COMPLEX Inactive NYSTATIN 259179 UNIT/GM CREA apply to rash TID PRN NYSTATIN 658837 UNIT/GM CREA 229844 NYSTATIN Inactive FRRZIAO-PCHPGBGOD-QONF 167-83-8 MG TABS 1 tab po daily EKOSCIP-BXRSTUUAG-LWEN 167-83-8 MG TABS [id number]-YEVBDCJXP-[id number] Inactive MS CONTIN 100 MG [id number] 1 by mouth twice a day MS CONTIN 100 MG [id number] MORPHINE SULFATE Inactive ENDOCET 10-325 MG TABS 1 by mouth twice a day ENDOCET 10-325 MG TABS 9900316 OXYCODONE-ACETAMINOPHEN Inactive HYDROXYZINE HCL 25 MG TAB take 1 every 4-6 hours as needed 07/01 HYDROXYZINE HCL 25 MG TAB 396635 HYDROXYZINE HCL Inactive ALPRAZOLAM 2 MG TABS 1 tablet by mouth three times daily as needed ALPRAZOLAM 2 MG TABS 799600 ALPRAZOLAM Inactive NEXIUM 40 MG CPDR 1 cap by mouth daily NEXIUM 40 MG CPDR 115958 ESOMEPRAZOLE MAGNESIUM Inactive Advance Directives Directive Description [...] ... - Chemistry sodium, serum 140 mmol/L 471-159 6699/03/25 carbon dioxide, venous blood 31.3 mmol/L 21.0-32.0 potassium, serum 4.0 mmol/L 3.5-5.2 chloride, serum 101 mmol/L 98-107 blood glucose 96 mg/dL 65-110 urea nitrogen, blood 7 mg/dL 7-18 creatinine, serum 0.94 mg/dL 0.55-1.30 alanine aminotransferase (SGPT), serum 23 U/L 12-78 aspartate aminotransferase (SGOT), serum 21 U/L 15-37 calcium, serum 8.9 mg/dL 8.5-10.1 bilirubin, serum, total 0.30 mg/dL 0.00-1.00 cholesterol, serum 169 mg/dL 944-731 8906/03/25 triglyceride, serum, fasting 143 mg/dL 30-200 HDL [...] 5.0-8.5 Encounters Code Encounter Date Provider Facility CPT-07158 Level 3 Est. Patient 11:07:48 CDT Wily Gonzalez [facility] CPT-27232 Level 3 Est. Patient 11:24:24 CDT Wily Gonzalez [facility] CPT-66107 Level 3 Est. Patient 15:19:54 [employer] Wily Gonzalez [facility] CPT-64248 Level 3 Est. Patient 10:04:45 CDT Wily Gonzalez [facility] CPT-79273 Level 3 Est. Patient 13:04:06 CDT Wily Zhang [facility] CPT-20290 Level 3 Est. Patient 12:23:04 CDT Wily Gonzalez [facility] CPT-50072 Level 3 Est. Patient 15:43:10 [employer] Wily Gonzalez [facility] CPT-19393 Level 3 Est. Patient 16:10:54 CDT Wily Zhang [facility] CPT-00272 Level 3 Est. Patient 19:50:51 CDT Wily Gonzalez [facility] CPT-99028 Level 3 Est. Patient 12:02:30 [employer] Wily Gonzalez [facility] CPT-06132 Level 3 Est. Patient 12:03:11 [employer] Wily Gonzalez [facility] CPT-50118 Level 3 Est. Patient 12:01:41 [employer] Wily Gonzalez [facility] CPT-95549 Level 3 Est. Patient 11:51:24 [employer] Wily Gonzalez [facility] CPT-86495 Level 3 Est. Patient 11:58:20 [employer] Wily Vicente Gonzalez [facility] CPT-28953 Level 3 Est. Patient 08:31:36 [employer] Wily Zhang Carlos [facility] CPT-91428 Level 3 Est. Patient 21:57:36 CDT Wily Vicente Carlos [facility] CPT-32076 Level 3 Est. Patient 10:49:58 CDT Esvin PAULA [facility] CPT-03407 Level 3 Est. Patient 11:22:52 CDT Esvin PAULA [facility] CPT-84548 Level 3 Est. Patient 13:49:41 CDT Esvin PAULA [facility] CPT-17823 Level 3 Est. Patient 11:54:53 CDT Esvin PAULA [facility] CPT-60359 Level 3 Est. Patient 09:07:11 CDT Esvin PAULA [facility] CPT-56446 Level 3 Est. Patient 13:52:47 CDT Esvin PAULA [facility] CPT-68476 Level 3 Est. Patient 11:26:46 CDT Esvin PAULA [facility] CPT-00377 Level 3 Est. Patient 10:25:00 [employer] Esvin PAULA [facility] CPT-55587 Level 3 Est. Patient 11:39:11 [employer] Evsin PAULA [facility] CPT-00874 Level 3 Est. Patient 13:24:24 [employer] Esvin PAULA [facility] CPT-80906 Level 3 Est. Patient 10:26:13 [employer] Esvin PAULA [facility] CPT-97032 Level 3 Est. Patient 10:21:21 CDT Esvin PAULA [facility] CPT-37505 Level 3 Est. Patient 10:26:30 CDT Esvin PAULA [facility] CPT-84426 Level 3 Est. Patient 09:16:37 CDT Esvin PAULA [facility] CPT-93544 Level 3 Est. Patient 09:06:58 CDT Esvin PAULA [facility] CPT-45036 Level 3 Est. Patient 10:05:29 CDT Esvin PAULA [facility] CPT-75688 Level 3 Est. Patient 10:38:45 CDT Esvin PAULA [facility] CPT-78080 Level 3 Est. Patient 10:09:45 CDT Esvin PAULA [facility] CPT-85546 Level 3 Est. Patient 09:26:37 CDT Esvin PAULA [facility] CPT-49204 Level 3 Est. Patient 10:34:42 [employer] Esvin Tristan PAULA [facility] CPT-14253 Level 3 Est. Patient 10:45:47 [employer] Esvin [facility] CPT-67644 Level 3 Est. Patient 10:45:22 [employer] Esvin [facility] CPT-81869 Level 3 Est. Patient 14:18:30 [employer] Esvin [facility] CPT-56465 Level 3 Est. Patient 13:53:29 [employer] Esvin [facility] CPT-83373 Level 3 Est. Patient 10:34:11 CDT Esvin [facility] Procedures Code Procedure Name Date Entry Date Standard Description CPT-48352 Venipuncture Draw Fee 09:26:55 CDT CPT-03241 Venipuncture Draw Fee 11:55:52 CDT CPT-77619 Spec Collection and Handling Fee 09:16:37 CDT CPT-92642 Venipuncture Draw Fee 09:16:37 CDT
--- OUTSIDE RECORDS SUMMARY | 2018-02-26 14:51 | XMS REPORT | Clinical Summary ---
Author Author Admin, E Organization [employer] Address Unknown Phone Unavailable Allergies, Adverse Reactions, [...] Generic Name NDC Status Provider Patient Instruction [id number] 167-83-8 MG TABS 1 tab po daily [id number] No Longer Active Wily Gonzalez DO Active NYSTATIN 921660 UNIT/GM CREA apply to rash TID PRN NYSTATIN 54192771443 No Longer Active Wily Gonzalez DO Active POLY-IRON 150 150 MG CAPS 1 tab po bid POLYSACCHARIDE IRON COMPLEX 64348241758 No Longer Active Wily Gonzalez DO Active FLONASE ALLERGY RELIEF 50 MCG/ACT NASAL SUSP 2 sprays each nostril every day FLUTICASONE PROPIONATE 98952940870 Active Wily Gonzalez DO Active CLEMASTINE FUMARATE 1.34 MG ORAL TABS 1 tab PO BID CLEMASTINE FUMARATE 51676138407 No Longer Active Wily Gonzalez DO Active FLOMAX 0.4 MG CAPS 1 capsule in the evening for night time urination. TAMSULOSIN HCL 25158220933 No Longer Active Wily Gonzalez DO Active PROTONIX 40 MG TBEC 1 po daily PANTOPRAZOLE SODIUM 13376198096 Active Wily Gonzalez DO Active HYDROXYZINE HCL 25 MG TAB 1 two times a day as needed for anxiety HYDROXYZINE HCL 76759648510 No Longer Active Wily Gonzalez DO Active ANUSOL-HC 25 MG SUPPOSITORY 1 rectally every 12 hours for irritation HYDROCORTISONE NAEL (RECTAL) 33453475727 No Longer Active Wily Gonzalez DO Active HYDROXYZINE HCL 25 MG TABS Take one (1) tablet by mouth twice a day HYDROXYZINE HCL 94841536716 No Longer Active Wily Gonzalez DO Active ZIAC 2.5-6.25 MG TAB 1 tablet daily for high blood pressure 10/27 BISOPROLOL-HCTZ 95852357204 No Longer Active Wily Gonzalez DO Active ZIAC 2.5-6.25 MG TAB 1 tablet every morning for high blood pressure BISOPROLOL-HCTZ 72882596478 No Longer Active Wily Gonzalez DO Active AMOXICILLIN 500 MG CAPS Take one (1) tablet by mouth three times a day 05/05 AMOXICILLIN 85024284767 No Longer Active Wily Gonzalez DO Active MORPHINE SULFATE ER 100 MG CR-TABS Take one (1) tablet by mouth twice a day MORPHINE SULFATE 36605442215 No Longer Active Wily Gonzalez DO Active MORPHINE SULFATE ER 100 MG [id number] 1 capsule twice daily for chronic pain MORPHINE SULFATE 93157387825 Active Marylou Melissa RPT,RMA Active CIALIS 10 MG TABS 1 every 72 hours as needed TADALAFIL 05526028755 No Longer Active Esvin PAULA Active FLONASE 50 MCG/ACT SUSP 2 SPRAY EACH NARE DAILY FLUTICASONE PROPIONATE 71397625789 No Longer Active Esvin PAULA Active CYCLOBENZAPRINE HCL 10 MG TABS Take one (1) tablet by mouth three times a day CYCLOBENZAPRINE HCL 96958141101 Active Wily Gonzalez DO Active OPANA ER (CRUSH RESISTANT) 40 MG [id number] Take one (1) tablet by mouth twice a day OXYMORPHONE HCL 65467441635 No Longer Active Esvin PAULA Active PROAIR HFA 108 (90 BASE) MCG/ACT AERS 2 puffs every four hours as needed ALBUTEROL SULFATE 43945226504 No Longer Active Esvin PAULA Active CLEARLAX POWD 17gm q day prn constipation POLYETHYLENE GLYCOL 3350 09982130301 Active Kaylen Leigh MA Active MORPHINE SULFATE ER 100 MG [id number] Take one (1) tablet by mouth twice a day MORPHINE SULFATE 02612877997 No Longer Active Esvin PAULA Active FLEXERIL 10 MG TAB 1 tablet by mouth 3 times daily as needed CYCLOBENZAPRINE HCL 80978791399 No Longer Active Esvin PAULA Active CELEBREX 200 MG CAPS 1 tablet by mouth twice daily with meals CELECOXIB 87766159661 No Longer Active Esvin PAULA Active NEXIUM 40 MG CPDR 1 cap daily ESOMEPRAZOLE MAGNESIUM 33405840553 No Longer Active Esvin PAULA Active MOBIC 15 MG TABS 1 tab daily MELOXICAM 32089570042 No Longer Active Esvin PAULA Active LISINOPRIL 20 MG TABS Take 1 tablet by mouth daily LISINOPRIL 56264650903 No Longer Active Esvin PAULA Active DICLOFENAC SODIUM 50 MG TBEC 1 tablet by mouth four times daily DICLOFENAC SODIUM 75865209903 No Longer Active Paula Cooney RN Active VERAMYST 27.5 MCG/SPRAY SUSP 2 spray each nare daily FLUTICASONE FUROATE 89219708238 No Longer Active Megan Alicia CARVAJAL Active ENDOCET 10-325 MG TABS Take one (1) tablet by mouth three times a day OXYCODONE-ACETAMINOPHEN 10308778476 Active Marylou Melissa RPT,RMA Active ALPRAZOLAM 2 MG TABS Take one (1) tablet by mouth three times a day ALPRAZOLAM 45793650096 Active Kaylen Leigh MA Active NEXIUM 40 MG CPDR 1 cap by mouth daily ESOMEPRAZOLE MAGNESIUM 60974368589 No Longer Active Esvin PAULA Active ALPRAZOLAM 2 MG TABS 1 tablet by mouth three times daily as needed ALPRAZOLAM 31990180617 No Longer Active Esvin PAULA Active HYDROXYZINE HCL 25 MG TAB take 1 every 4-6 hours as needed 07/01 HYDROXYZINE HCL 74416636877 No Longer Active Esvin PAULA Active ENDOCET 10-325 MG TABS 1 by mouth twice a day OXYCODONE-ACETAMINOPHEN 41006474214 No Longer Active Esvin PAULA Active MS CONTIN 100 MG [id number] 1 by mouth twice a day MORPHINE SULFATE 92222164903 No Longer Active Esvin PAULA Active SUDAFED 30 MG TAB 1-2 every 4-6 hours as needed PSEUDOEPHEDRINE HCL 21800336286 Active Marylou Melissa RPT,RMA Active VERAMYST 27.5 MCG/SPRAY SUSP 2 spray each nare daily VERAMYST 27.5 MCG/SPRAY SUSP FLUTICASONE FUROATE Inactive DICLOFENAC SODIUM 50 MG TBEC 1 tablet by mouth four times daily DICLOFENAC SODIUM 50 MG TBEC 748142 DICLOFENAC SODIUM Inactive LISINOPRIL 20 MG TABS Take 1 tablet by mouth daily LISINOPRIL 20 MG TABS 167466 LISINOPRIL Inactive MOBIC 15 MG TABS 1 tab daily MOBIC 15 MG TABS 048247 MELOXICAM Inactive NEXIUM 40 MG CPDR 1 cap daily NEXIUM 40 MG CPDR 326249 ESOMEPRAZOLE MAGNESIUM Inactive CELEBREX 200 MG CAPS 1 tablet by mouth twice daily with meals CELEBREX 200 MG CAPS 954640 CELECOXIB Inactive FLEXERIL 10 MG TAB 1 [...] a day 05/05 AMOXICILLIN 500 MG CAPS 347944 AMOXICILLIN Inactive ZIAC 2.5-6.25 MG TAB 1 tablet every morning for high blood pressure ZIAC 2.5-6.25 MG TAB 821253 BISOPROLOL-HCTZ Inactive ZIAC 2.5-6.25 MG TAB 1 tablet daily for high blood pressure 10/27 ZIAC 2.5-6.25 MG TAB 417848 BISOPROLOL-HCTZ Inactive HYDROXYZINE HCL 25 MG TABS Take one (1) tablet by mouth twice a day HYDROXYZINE HCL 25 MG TABS 451216 HYDROXYZINE HCL Inactive ANUSOL-HC 25 MG SUPPOSITORY 1 rectally every 12 hours for irritation ANUSOL-HC 25 MG SUPPOSITORY 1607523 HYDROCORTISONE NAEL (RECTAL ) Inactive HYDROXYZINE HCL 25 MG TAB 1 two times a day as needed for anxiety HYDROXYZINE HCL 25 MG TAB 855704 HYDROXYZINE HCL Inactive FLOMAX 0.4 MG CAPS 1 capsule in the evening for night time urination. FLOMAX 0.4 MG CAPS 869520 TAMSULOSIN HCL Inactive CLEMASTINE FUMARATE 1.34 MG ORAL TABS 1 tab PO BID CLEMASTINE FUMARATE 1.34 MG ORAL TABS 599307 CLEMASTINE FUMARATE Inactive POLY-IRON 150 150 MG CAPS 1 tab po bid POLY-IRON 150 150 MG CAPS POLYSACCHARIDE IRON COMPLEX Inactive NYSTATIN 267395 UNIT/GM CREA apply to rash TID PRN NYSTATIN 269970 UNIT/GM CREA 577535 NYSTATIN Inactive [id number] 167-83-8 MG TABS 1 tab po daily [id number] 167-83-8 MG TABS [id number]-[id number]-[id number] Inactive MS CONTIN 100 MG PF89Q-IBK 1 by mouth twice a day MS CONTIN 100 MG [id number] MORPHINE SULFATE Inactive ENDOCET 10-325 MG TABS 1 by mouth twice a day ENDOCET 10-325 MG TABS 4687498 OXYCODONE-ACETAMINOPHEN Inactive HYDROXYZINE HCL 25 MG TAB take 1 every 4-6 hours as needed 07/01 HYDROXYZINE HCL 25 MG TAB 250328 HYDROXYZINE HCL Inactive ALPRAZOLAM 2 MG TABS 1 tablet by mouth three times daily as needed ALPRAZOLAM 2 MG TABS 257343 ALPRAZOLAM Inactive NEXIUM 40 MG CPDR 1 cap by mouth daily NEXIUM 40 MG CPDR 439484 ESOMEPRAZOLE MAGNESIUM Inactive Advance Directives Directive Description [...] ... - Chemistry sodium, serum 140 mmol/L 802-686 2579/03/25 carbon dioxide, venous blood 31.3 mmol/L 21.0-32.0 potassium, serum 4.0 mmol/L 3.5-5.2 chloride, serum 101 mmol/L 98-107 blood glucose 96 mg/dL 65-110 urea nitrogen, blood 7 mg/dL 7-18 creatinine, serum 0.94 mg/dL 0.55-1.30 alanine aminotransferase (SGPT), serum 23 U/L 12-78 aspartate aminotransferase (SGOT), serum 21 U/L 15-37 calcium, serum 8.9 mg/dL 8.5-10.1 bilirubin, serum, total 0.30 mg/dL 0.00-1.00 cholesterol, serum 169 mg/dL 714-868 4021/03/25 triglyceride, serum, fasting 143 mg/dL 30-200 HDL [...] 5.0-8.5 Encounters Code Encounter Date Provider Facility CPT-46906 Level 3 Est. Patient 11:07:48 CDT Wily Gonzalez [facility] CPT-31404 Level 3 Est. Patient 11:24:24 CDT Wily Gonzalez [facility] CPT-47556 Level 3 Est. Patient 15:19:54 APPLICATION INTEGRATION ARCHITECT Wily Gonzalez [facility] CPT-53019 Level 3 Est. Patient 10:04:45 CDT Wily Gonzalez [facility] CPT-22144 Level 3 Est. Patient 13:04:06 CDT Wily Gonzalez [facility] CPT-76103 Level 3 Est. Patient 12:23:04 CDT Wily Gonzalez [facility] CPT-91937 Level 3 Est. Patient 15:43:10 APPLICATION INTEGRATION ARCHITECT Wily Gonzalez [facility] CPT-31618 Level 3 Est. Patient 16:10:54 CDT Wily Zhang [facility] CPT-86576 Level 3 Est. Patient 19:50:51 CDT Wily Gonzalez [facility] CPT-02039 Level 3 Est. Patient 12:02:30 APPLICATION INTEGRATION ARCHITECT Wily Gonzalez [facility] CPT-46688 Level 3 Est. Patient 12:03:11 APPLICATION INTEGRATION ARCHITECT Wily Zhang Carlos [facility] CPT-36331 Level 3 Est. Patient 12:01:41 APPLICATION INTEGRATION ARCHITECT Wily Vicente Carlos [facility] CPT-10950 Level 3 Est. Patient 11:51:24 APPLICATION INTEGRATION ARCHITECT Wily Vicente Carlos [facility] CPT-07322 Level 3 Est. Patient 11:58:20 APPLICATION INTEGRATION ARCHITECT Wily Gonzalez [facility] CPT-58073 Level 3 Est. Patient 08:31:36 APPLICATION INTEGRATION ARCHITECT Wily Gonzalez [facility] CPT-19068 Level 3 Est. Patient 21:57:36 CDT Wily Vicente Carlos [facility] CPT-42484 Level 3 Est. Patient 10:49:58 CDT Esvin PAULA [facility]-58330 Level 3 Est. Patient 11:22:52 CDT Esvin PAULA [facility] CPT-22134 Level 3 Est. Patient 13:49:41 CDT Esvin PAULA [facility] CPT-28563 Level 3 Est. Patient 11:54:53 CDT Esvin PAULA [facility] CPT-75365 Level 3 Est. Patient 09:07:11 CDT Esvin PAULA [facility] CPT-72639 Level 3 Est. Patient 13:52:47 CDT Esvin PAULA [facility] CPT-16320 Level 3 Est. Patient 11:26:46 CDT Esvin PAULA [facility] CPT-22291 Level 3 Est. Patient 10:25:00 APPLICATION INTEGRATION ARCHITECT Esvin PAULA [facility] CPT-67327 Level 3 Est. Patient 11:39:11 APPLICATION INTEGRATION ARCHITECT Esvin PAULA [facility] CPT-20540 Level 3 Est. Patient 13:24:24 APPLICATION INTEGRATION ARCHITECT Esvin PAULA [facility] CPT-87972 Level 3 Est. Patient 10:26:13 APPLICATION INTEGRATION ARCHITECT Esvin PAULA [facility] CPT-22105 Level 3 Est. Patient 10:21:21 CDT Esvin PAULA [facility] CPT-19581 Level 3 Est. Patient 10:26:30 CDT Esvin PAULA [facility] CPT-37091 Level 3 Est. Patient 09:16:37 CDT Esvin PAULA [facility]-44208 Level 3 Est. Patient 09:06:58 CDT Esvin PAULA [facility] CPT-13008 Level 3 Est. Patient 10:05:29 CDT Esvin PAULA [facility] CPT-45234 Level 3 Est. Patient 10:38:45 CDT Esvin Hudson [facility] CPT-79346 Level 3 Est. Patient 10:09:45 CDT Esvin Hudson [facility] CPT-33632 Level 3 Est. Patient 09:26:37 CDT Esvin Tristan [facility] CPT-71384 Level 3 Est. Patient 10:34:42 APPLICATION INTEGRATION ARCHITECT Esvin Tristan [facility] CPT-29004 Level 3 Est. Patient 10:45:47 APPLICATION INTEGRATION ARCHITECT Esvin Hudson [facility] CPT-45841 Level 3 Est. Patient 10:45:22 APPLICATION INTEGRATION ARCHITECT Esvin Hudson [facility] CPT-94313 Level 3 Est. Patient 14:18:30 APPLICATION INTEGRATION ARCHITECT Esvin Hudson [facility] CPT-32152 Level 3 Est. Patient 13:53:29 APPLICATION INTEGRATION ARCHITECT Esvin Tristan [facility] CPT-00117 Level 3 Est. Patient 10:34:11 CDT Esvin Hudson [facility] Procedures Code Procedure Name Date Entry Date Standard Description CPT-43809 Venipuncture Draw Fee 09:26:55 CDT CPT-10435 Venipuncture Draw Fee 11:55:52 CDT CPT-12029 Spec Collection and Handling Fee 09:16:37 CDT CPT-99597 Venipuncture Draw Fee 09:16:37 CDT
--- OUTSIDE RECORDS SUMMARY | 2018-02-26 14:52 | XMS REPORT | Clinical Summary ---
Author Author Admin, E Organization [employer] Address Unknown Phone Unavailable Allergies, Adverse Reactions, [...] sprays each nostril every day FLUTICASONE PROPIONATE [id number] Active Wily Gonzalez DO Active CLEMASTINE FUMARATE 1.34 MG ORAL TABS 1 tab PO BID CLEMASTINE FUMARATE 12489232233 No Longer Active Wily Gonzalez DO Active FLOMAX 0.4 MG CAPS 1 capsule in the evening for night time urination. TAMSULOSIN HCL 11173104190 No Longer Active Wily Gonzalez DO Active PROTONIX 40 MG TBEC 1 po daily PANTOPRAZOLE SODIUM 17115473328 Active Wily Gonzalez DO Active HYDROXYZINE HCL 25 MG TAB 1 two times a day as needed for anxiety HYDROXYZINE HCL 61229386662 No Longer Active Wily Gonzalez DO Active ANUSOL-HC 25 MG SUPPOSITORY 1 rectally every 12 hours for irritation HYDROCORTISONE NAEL (RECTAL) 19990705034 No Longer Active Wily Gonzalez DO Active HYDROXYZINE HCL 25 MG TABS Take one (1) tablet by mouth twice a day HYDROXYZINE HCL 14265589988 No Longer Active Wily Gonzalez DO Active ZIAC 2.5-6.25 MG TAB 1 tablet daily for high blood pressure 10/27 BISOPROLOL-HCTZ 60463072795 No Longer Active Wily Gonzalez DO Active [id number] 167-83-8 MG TABS 1 tab po daily CALCIUM -MAGNESIUM-ZINC 45043899000 Active Wily Gonzalez DO Active NYSTATIN 808861 UNIT/GM CREA apply to rash TID PRN NYSTATIN 74989490699 Active Wily Gonzalez DO Active ZIAC 2.5-6.25 MG TAB 1 tablet every morning for high blood pressure BISOPROLOL-HCTZ 56376741018 No Longer Active Wily Gonzalez DO Active AMOXICILLIN 500 MG CAPS Take one (1) tablet by mouth three times a day 05/05 AMOXICILLIN 25770095512 No Longer Active Wily Gonzalez DO Active MORPHINE SULFATE ER 100 MG CR-TABS Take one (1) tablet by mouth twice a day MORPHINE SULFATE 02375349318 No Longer Active Wily Gonzalez DO Active MORPHINE SULFATE ER 100 MG [id number] 1 capsule twice daily for chronic pain MORPHINE SULFATE 74203105702 Active Wily Gonzalez DO Active CIALIS 10 MG TABS 1 every 72 hours as needed TADALAFIL 29394533876 No Longer Active Esvin PAULA Active FLONASE 50 MCG/ACT SUSP 2 SPRAY EACH NARE DAILY FLUTICASONE PROPIONATE 00851349773 No Longer Active Esvin PAULA Active CYCLOBENZAPRINE HCL 10 MG TABS Take one (1) tablet by mouth three times a day CYCLOBENZAPRINE HCL 23674418973 Active Wily Gonzalez DO Active OPANA ER (CRUSH RESISTANT) 40 MG [id number] Take one (1) tablet by mouth twice a day OXYMORPHONE HCL 85452233315 No Longer Active Esvin PAULA Active POLY-IRON 150 150 MG CAPS 1 tab po bid POLYSACCHARIDE IRON COMPLEX 60493201610 Active Wily Gonzalez DO Active PROAIR HFA 108 (90 BASE) MCG/ACT AERS 2 puffs every four hours as needed ALBUTEROL SULFATE 36887018791 No Longer Active Esvin PAULA Active CLEARLAX POWD 17gm q day prn constipation POLYETHYLENE GLYCOL 3350 92976554034 Active Kaylen Leigh MA Active MORPHINE SULFATE ER 100 MG [id number] Take one (1) tablet by mouth twice a day MORPHINE SULFATE 53743594847 No Longer Active Esvin PAULA Active FLEXERIL 10 MG TAB 1 tablet by mouth 3 times daily as needed CYCLOBENZAPRINE HCL 16083983321 No Longer Active Esvin PAULA Active CELEBREX 200 MG CAPS 1 tablet by mouth twice daily with meals CELECOXIB 64830528332 No Longer Active Esvin PAULA Active NEXIUM 40 MG CPDR 1 cap daily ESOMEPRAZOLE MAGNESIUM 78545075465 No Longer Active Esvin PAULA Active MOBIC 15 MG TABS 1 tab daily MELOXICAM 47811397275 No Longer Active Esvin PAULA Active LISINOPRIL 20 MG TABS Take 1 tablet by mouth daily LISINOPRIL 60058780544 No Longer Active Esvin PAULA Active DICLOFENAC SODIUM 50 MG TBEC 1 tablet by mouth four times daily DICLOFENAC SODIUM 11359921563 No Longer Active Paula Cooney RN Active VERAMYST 27.5 MCG/SPRAY SUSP 2 spray each nare daily FLUTICASONE FUROATE 58417588263 No Longer Active Megan Vargas RN Active ENDOCET 10-325 MG TABS Take one (1) tablet by mouth three times a day OXYCODONE-ACETAMINOPHEN 74283010385 Active Wily Gonzalez DO Active ALPRAZOLAM 2 MG TABS Take one (1) tablet by mouth three times a day ALPRAZOLAM 35620040083 Active Marylou Melissa RPT,RMA Active NEXIUM 40 MG CPDR 1 cap by mouth daily ESOMEPRAZOLE MAGNESIUM 28124987533 No Longer Active Esvin PAULA Active ALPRAZOLAM 2 MG TABS 1 tablet by mouth three times daily as needed ALPRAZOLAM 17347442532 No Longer Active Esvin PAULA Active HYDROXYZINE HCL 25 MG TAB take 1 every 4-6 hours as needed 07/01 HYDROXYZINE HCL 51424690157 No Longer Active Esvin PAULA Active ENDOCET 10-325 MG TABS 1 by mouth twice a day OXYCODONE-ACETAMINOPHEN 20681281379 No Longer Active Esvin PAULA Active MS CONTIN 100 MG [id number] 1 by mouth twice a day MORPHINE SULFATE 23493545340 No Longer Active Esvin PAULA Active SUDAFED 30 MG TAB 1-2 every 4-6 hours as needed PSEUDOEPHEDRINE HCL 75539429810 Active Marylou Melissa RPT,RMA Active VERAMYST 27.5 MCG/SPRAY SUSP 2 spray each nare daily VERAMYST 27.5 MCG/SPRAY SUSP FLUTICASONE FUROATE Inactive DICLOFENAC SODIUM 50 MG TBEC 1 tablet by mouth four times daily DICLOFENAC SODIUM 50 MG TBEC 632962 DICLOFENAC SODIUM Inactive LISINOPRIL 20 MG TABS Take 1 tablet by mouth daily LISINOPRIL 20 MG TABS 383249 LISINOPRIL Inactive MOBIC 15 MG TABS 1 tab daily MOBIC 15 MG TABS 708586 MELOXICAM Inactive NEXIUM 40 MG CPDR 1 cap daily NEXIUM 40 MG CPDR 933939 ESOMEPRAZOLE MAGNESIUM Inactive CELEBREX 200 MG CAPS 1 tablet by mouth twice daily with meals CELEBREX 200 MG CAPS 278741 CELECOXIB Inactive FLEXERIL 10 MG TAB 1 [...] a day 05/05 AMOXICILLIN 500 MG CAPS 468635 AMOXICILLIN Inactive ZIAC 2.5-6.25 MG TAB 1 tablet every morning for high blood pressure ZIAC 2.5-6.25 MG TAB 070038 BISOPROLOL-HCTZ Inactive ZIAC 2.5-6.25 MG TAB 1 tablet daily for high blood pressure 10/27 ZIAC 2.5-6.25 MG TAB 886089 BISOPROLOL-HCTZ Inactive HYDROXYZINE HCL 25 MG TABS Take one (1) tablet by mouth twice a day HYDROXYZINE HCL 25 MG TABS 310035 HYDROXYZINE HCL Inactive ANUSOL-HC 25 MG SUPPOSITORY 1 rectally every 12 hours for irritation ANUSOL-HC 25 MG SUPPOSITORY 4219112 HYDROCORTISONE NAEL (RECTAL ) Inactive HYDROXYZINE HCL 25 MG TAB 1 two times a day as needed for anxiety HYDROXYZINE HCL 25 MG TAB 329048 HYDROXYZINE HCL Inactive FLOMAX 0.4 MG CAPS 1 capsule in the evening for night time urination. FLOMAX 0.4 MG CAPS 642134 TAMSULOSIN HCL Inactive CLEMASTINE FUMARATE 1.34 MG ORAL TABS 1 tab PO BID CLEMASTINE FUMARATE 1.34 MG ORAL TABS 376313 CLEMASTINE FUMARATE Inactive MS CONTIN 100 MG [id number] 1 by mouth twice a day MS CONTIN 100 MG [id number] MORPHINE SULFATE Inactive ENDOCET 10-325 MG TABS 1 by mouth twice a day ENDOCET 10-325 MG TABS 6562560 OXYCODONE-ACETAMINOPHEN Inactive HYDROXYZINE HCL 25 MG TAB take 1 every 4-6 hours as needed 07/01 HYDROXYZINE HCL 25 MG TAB 316772 HYDROXYZINE HCL Inactive ALPRAZOLAM 2 MG TABS 1 tablet by mouth three times daily as needed ALPRAZOLAM 2 MG TABS 138091 ALPRAZOLAM Inactive NEXIUM 40 MG CPDR 1 cap by mouth daily NEXIUM 40 MG CPDR 271909 ESOMEPRAZOLE MAGNESIUM Inactive Advance Directives Directive Description [...] E&M - 3141-9 175.2 [lb_av] Weight Measured Diagnostic Results Date Name [...] count 269 10^3/MM^3 10*3/mm3 142-424 Lab Report: CBC, Comp. Metabolic Panel, Thyroid Stimulating Hormone (L), ... - Chemistry sodium, serum 138 mmol/L 391-836 9241/04/13 potassium, serum 4.9 mmol/L 3.5-5.2 chloride, serum [...] Thyroid Stimulating Hormone (L), ... - Hematology mean corpuscular hemoglobin, RBC 31.2 pg 27.0-31.2 mean corpuscular hemoglobin concentration, RBC 34.0 G/DL % 31.8- 35.4 red blood cell distribution width 14.9 % 11.6-14.8 platelet count 227 10^3/MM^3 10*3/mm3 544-730 9555/04/13 mean corpuscular volume, RBC 92 fL 80-97 hematocrit, blood 36.7 % 41.0-53.0 hemoglobin, blood 12.5 g/dL 13.5-17.5 erythrocyte (RBC) count 3.99 10^6/MM^3 10*6/mm3 4.69-6.13 leukocyte count, blood 6.1 10^3/MM^3 10*3/mm3 4.6-10.2 Lab Report: Comp. Metabolic Panel, Lipid Panel, Thyroid Stimulating Horm ... - Chemistry sodium, serum 140 mmol/L 878-595 3981/03/25 carbon dioxide, venous blood 31.3 mmol/L 21.0-32.0 potassium, serum 4.0 mmol/L 3.5-5.2 chloride, serum 101 mmol/L 98-107 blood glucose 96 mg/dL 65-110 urea nitrogen, blood 7 mg/dL 7-18 creatinine, serum 0.94 mg/dL 0.55-1.30 alanine aminotransferase (SGPT), serum 23 U/L 12-78 aspartate aminotransferase (SGOT), serum 21 U/L 15-37 calcium, serum 8.9 mg/dL 8.5-10.1 bilirubin, serum, total 0.30 mg/dL 0.00-1.00 cholesterol, serum 169 mg/dL 690-746 8067/03/25 triglyceride, serum, fasting 143 mg/dL 30-200 HDL cholesterol, serum 61 mg/dL 32-96 LDL cholesterol, serum 79 mg/dL 0-130 TSH 1.28 m[iU]/mL 0.36-3.74 Lab Report: MICROALBUMIN - Chemistry albumin/creatinine ratio, urine < 30 mg/g mg/g{creat} 0-29 Lab Report: MICROALBUMIN - Lab microalbumin, urine 10 0-19 Lab Report: UADIP W/MICRO, AUTO - Chemistry RBC, urine, dipstick Negative Negative protein, total urine random Negative mg/dL Negative Lab Report: UADIP W/MICRO, AUTO - Urinalysis glucose, urine, semiquantitative Negative Negative urobilinogen, urine, semiquantitative (dipstick) 0.2 Normal leukocyte esterase, urine, by dipstick Negative Negative nitrite, urine, semiquantitative Negative Negative ketones, urine, by test strip Negative Negative bilirubin, urine Negative Negative urine color Yellow Colorless;Lightyellow;Straw;Yellow appearance, urine Clear Clear specific gravity, urine <=1.005 1.000-1.030 pH, urine, semiquantitative 6.5 5.0-8.5 Encounters Code Encounter Date Provider Facility CPT-24741 Level 3 Est. Patient 11:24:24 CDT Wily W Carlos [facility] CPT-13565 Level 3 Est. Patient 15:19:54 [employer]ANGLE [employer] Wily Gonzalez [facility] CPT-13353 Level 3 Est. Patient 10:04:45 CDT Wily Gonzalez DO [facility] CPT-99391 Level 3 Est. Patient 13:04:06 CDT Wily Gonzalez [facility] CPT-34301 Level 3 Est. Patient 12:23:04 CDT Wily Gonzalez [facility] CPT-54723 Level 3 Est. Patient 15:43:10 MANGLE TENDER Wily Gonzalez [facility] CPT-36117 Level 3 Est. Patient 16:10:54 CDT Wily Gonzalez [facility] CPT-92555 Level 3 Est. Patient 19:50:51 CDT Wily Gonzalez [facility] CPT-53589 Level 3 Est. Patient 12:02:30 MANGLE TENDER Wily Gonzalez [facility] CPT-37481 Level 3 Est. Patient 12:03:11 MANGLE TENDER Wily Gonzalez [facility] CPT-48779 Level 3 Est. Patient 12:01:41 MANGLE TENDER Wily Gonzalez [facility] CPT-33803 Level 3 Est. Patient 11:51:24 MANGLE TENDER Wily Gonzalez [facility] CPT-11094 Level 3 Est. Patient 11:58:20 MANGLE TENDER Wily Gonzalez [facility] CPT-29852 Level 3 Est. Patient 08:31:36 MANGLE TENDER Wily Gonzalez [facility] CPT-05213 Level 3 Est. Patient 21:57:36 CDT Wily Gonzalez [facility] CPT-03758 Level 3 Est. Patient 10:49:[address] [facility] CPT-85815 Level 3 Est. Patient 11:22:52 CDT Esvin Hudson [facility] CPT-47447 Level 3 Est. Patient 13:49:41 CDT Esvin Hudson [facility] CPT-56731 Level 3 Est. Patient 11:54:53 CDT Esvin Hudson [facility] CPT-29740 Level 3 Est. Patient 09:07:11 CDT Esvin Hudson [facility] CPT-85117 Level 3 Est. Patient 13:52:47 CDT Esvin PAULA [facility] CPT-46712 Level 3 Est. Patient 11:26:46 CDT Esvin Hudson [facility] CPT-01137 Level 3 Est. Patient 10:25:00 MANGLE TENDER Esvin Hudson [facility] CPT-54603 Level 3 Est. Patient 11:39:11 MANGLE TENDER Esvin Hudson [facility] CPT-43455 Level 3 Est. Patient 13:24:24 MANGLE TENDER Esvin PAULA [facility] CPT-05647 Level 3 Est. Patient 10:26:13 MANGLE TENDER Esvin PAULA [facility] CPT-39264 Level 3 Est. Patient 10:21:21 CDT Esvin Hudson [facility] CPT-81581 Level 3 Est. Patient 10:26:30 CDT Esvin PAULA [facility] CPT-18780 Level 3 Est. Patient 09:16:37 CDT Esvin Hudson [facility]-74691 Level 3 Est. Patient 09:06:58 CDT Esvin Tristan [facility] CPT-45138 Level 3 Est. Patient 10:05:29 CDT Esvin [place] [facility] CPT-31355 Level 3 Est. Patient 10:38:45 CDT Esvin Tristan [facility] CPT-73553 Level 3 Est. Patient 10:09:45 CDT Esvin Tristan [facility] CPT-54125 Level 3 Est. Patient 09:26:37 CDT Esvin Tristan [facility] CPT-54765 Level 3 Est. Patient 10:34:42 MANGLE TENDER Esvin Tristan [facility] CPT-11879 Level 3 Est. Patient 10:45:47 MANGLE TENDER Esvin Tristan [facility] CPT-91576 Level 3 Est. Patient 10:45:22 MANGLE TENDER Esvin Tristan [facility] CPT-40457 Level 3 Est. Patient 14:18:30 MANGLE TENDER Esvin Tristan [facility] CPT-50011 Level 3 Est. Patient 13:53:29 MANGLE TENDER Esvin Tristan [facility] CPT-03266 Level 3 Est. Patient 10:34:11 CDT Esvin [place] [facility] Procedures Code Procedure Name Date Entry Date Standard Description CPT-80389 Venipuncture Draw Fee 09:26:55 CDT CPT-05343 Venipuncture Draw Fee 11:55:52 CDT CPT-23082 Spec Collection and Handling Fee 09:16:37 CDT CPT-81572 Venipuncture Draw Fee 09:16:37 CDT
--- OUTSIDE RECORDS SUMMARY | 2018-02-26 14:53 | XMS REPORT | Clinical Summary ---
Author Author Admin, E Organization [facility] Address Unknown Phone Unavailable Allergies, [...] for up to 2 weeks TRIAMCINOLONE ACETONIDE 80996754191 Active Wily Gonzalez DO Active [id number] 167-83-8 MG TABS 1 tab po daily [id number] 00443516894 No Longer Active Wily Gonzalez DO Active NYSTATIN 978413 UNIT/GM CREA apply to rash TID PRN NYSTATIN 82634456104 No Longer Active Wily Gonzalez DO Active POLY-IRON 150 150 MG CAPS 1 tab po bid POLYSACCHARIDE IRON COMPLEX 93098429605 No Longer Active Wily Gonzalez DO Active FLONASE ALLERGY RELIEF 50 MCG/ACT NASAL SUSP 2 sprays each nostril every day FLUTICASONE PROPIONATE 39024222518 Active Jodi Shayy CORTEZ Active CLEMASTINE FUMARATE 1.34 MG ORAL TABS 1 tab PO BID CLEMASTINE FUMARATE 10613980678 No Longer Active Wily Gonzalez DO Active FLOMAX 0.4 MG CAPS 1 capsule in the evening for night time urination. TAMSULOSIN HCL 28764482343 No Longer Active Wily Gonzalez DO Active PROTONIX 40 MG TBEC 1 po daily PANTOPRAZOLE SODIUM 50287500888 Active Agnieszka Yeung Active HYDROXYZINE HCL 25 MG TAB 1 two times a day as needed for anxiety HYDROXYZINE HCL 52745265636 No Longer Active Wily Gonzalez DO Active ANUSOL-HC 25 MG SUPPOSITORY 1 rectally every 12 hours for irritation HYDROCORTISONE NAEL (RECTAL) 52852135748 No Longer Active Wily Gonzalez DO Active HYDROXYZINE HCL 25 MG TABS Take one (1) tablet by mouth twice a day HYDROXYZINE HCL 59864542142 No Longer Active Wily Gonzalez DO Active ZIAC 2.5-6.25 MG TAB 1 tablet daily for high blood pressure 10/27 BISOPROLOL-HCTZ 29756928531 No Longer Active Wily Gonzalez DO Active ZIAC 2.5-6.25 MG TAB 1 tablet every morning for high blood pressure BISOPROLOL-HCTZ 85304118032 No Longer Active Wily Gonzalez DO Active AMOXICILLIN 500 MG CAPS Take one (1) tablet by mouth three times a day 05/05 AMOXICILLIN 68934527910 No Longer Active Wily Gonzalez DO Active MORPHINE SULFATE ER 100 MG CR-TABS Take one (1) tablet by mouth twice a day MORPHINE SULFATE 67113366899 No Longer Active Wily Gonzalez DO Active MORPHINE SULFATE ER 100 MG [id number] 1 capsule twice daily for chronic pain MORPHINE SULFATE 94709908799 Active Agnieszka Gamal Active CIALIS 10 MG TABS 1 every 72 hours as needed TADALAFIL 56342896733 No Longer Active Esvin PAULA Active FLONASE 50 MCG/ACT SUSP 2 SPRAY EACH NARE DAILY FLUTICASONE PROPIONATE 98359685964 No Longer Active Esvin PAULA Active CYCLOBENZAPRINE HCL 10 MG TABS Take one (1) tablet by mouth three times a day CYCLOBENZAPRINE HCL 11929745091 Active Agnieszka Gamal Active OPANA ER (CRUSH RESISTANT) 40 MG [id number] Take one (1) tablet by mouth twice a day OXYMORPHONE HCL 69885072312 No Longer Active Esvin PAULA Active PROAIR HFA 108 (90 BASE) MCG/ACT AERS 2 puffs every four hours as needed ALBUTEROL SULFATE 99695436766 No Longer Active Esvin PAULA Active CLEARLAX POWD 17gm q day prn constipation POLYETHYLENE GLYCOL 3350 05473787609 Active Kaylen Leigh MA Active MORPHINE SULFATE ER 100 MG [id number]-UAW Take one (1) tablet by mouth twice a day MORPHINE SULFATE 22805150845 No Longer Active Esvin PAULA Active FLEXERIL 10 MG TAB 1 tablet by mouth 3 times daily as needed CYCLOBENZAPRINE HCL 80071321376 No Longer Active Esvin PAULA Active CELEBREX 200 MG CAPS 1 tablet by mouth twice daily with meals CELECOXIB 63135413643 No Longer Active Esvin PAULA Active NEXIUM 40 MG CPDR 1 cap daily ESOMEPRAZOLE MAGNESIUM 20651888423 No Longer Active Esvin PAULA Active MOBIC 15 MG TABS 1 tab daily MELOXICAM 62966787937 No Longer Active Esvin PAULA Active LISINOPRIL 20 MG TABS Take 1 tablet by mouth daily LISINOPRIL 11077174666 No Longer Active Esvin PAULA Active DICLOFENAC SODIUM 50 MG TBEC 1 tablet by mouth four times daily DICLOFENAC SODIUM 38473655963 No Longer Active Paula Cooney RN Active VERAMYST 27.5 MCG/SPRAY SUSP 2 spray each nare daily FLUTICASONE FUROATE 36375285511 No Longer Active Meganbarbra Vargas RN Active ENDOCET 10-325 MG TABS Take one (1) tablet by mouth three times a day OXYCODONE-ACETAMINOPHEN 98257194343 Active Agnieszka Yeung Active ALPRAZOLAM 2 MG TABS Take one (1) tablet by mouth three times a day ALPRAZOLAM 34244797769 Active Agnieszka Yeung Active NEXIUM 40 MG CPDR 1 cap by mouth daily ESOMEPRAZOLE MAGNESIUM 27042558493 No Longer Active Esvin PAULA Active ALPRAZOLAM 2 MG TABS 1 tablet by mouth three times daily as needed ALPRAZOLAM 88800722181 No Longer Active Esvin PAULA Active HYDROXYZINE HCL 25 MG TAB take 1 every 4-6 hours as needed 07/01 HYDROXYZINE HCL 80128274407 No Longer Active Esvin PAULA Active ENDOCET 10-325 MG TABS 1 by mouth twice a day OXYCODONE-ACETAMINOPHEN 68318008442 No Longer Active Esvin PAULA Active MS CONTIN 100 MG EL96I-MQQ 1 by mouth twice a day MORPHINE SULFATE 71371632822 No Longer Active Esvin PAULA Active SUDAFED 30 MG TAB 1-2 every 4-6 hours as needed PSEUDOEPHEDRINE HCL 85655999086 Active Marylou Melissa RPT,RMA Active VERAMYST 27.5 MCG/SPRAY SUSP 2 spray each nare daily VERAMYST 27.5 MCG/SPRAY SUSP FLUTICASONE FUROATE Inactive DICLOFENAC SODIUM 50 MG TBEC 1 tablet by mouth four times daily DICLOFENAC SODIUM 50 MG TBEC 072909 DICLOFENAC SODIUM Inactive LISINOPRIL 20 MG TABS Take 1 tablet by mouth daily LISINOPRIL 20 MG TABS 475367 LISINOPRIL Inactive MOBIC 15 MG TABS 1 tab daily MOBIC 15 MG TABS 893002 MELOXICAM Inactive NEXIUM 40 MG CPDR 1 cap daily NEXIUM 40 MG CPDR 570499 ESOMEPRAZOLE MAGNESIUM Inactive CELEBREX 200 MG CAPS 1 tablet by mouth twice daily with meals CELEBREX 200 MG CAPS 883393 CELECOXIB Inactive FLEXERIL 10 MG TAB 1 [...] a day 05/05 AMOXICILLIN 500 MG CAPS 478929 AMOXICILLIN Inactive ZIAC 2.5-6.25 MG TAB 1 tablet every morning for high blood pressure ZIAC 2.5-6.25 MG TAB 008148 BISOPROLOL-HCTZ Inactive ZIAC 2.5-6.25 MG TAB 1 tablet daily for high blood pressure 10/27 ZIAC 2.5-6.25 MG TAB 794687 BISOPROLOL-HCTZ Inactive HYDROXYZINE HCL 25 MG TABS Take one (1) tablet by mouth twice a day HYDROXYZINE HCL 25 MG TABS 162539 HYDROXYZINE HCL Inactive ANUSOL-HC 25 MG SUPPOSITORY 1 rectally every 12 hours for irritation ANUSOL-HC 25 MG SUPPOSITORY 7914674 HYDROCORTISONE NAEL (RECTAL ) Inactive HYDROXYZINE HCL 25 MG TAB 1 two times a day as needed for anxiety HYDROXYZINE HCL 25 MG TAB 630465 HYDROXYZINE HCL Inactive FLOMAX 0.4 MG CAPS 1 capsule in the evening for night time urination. FLOMAX 0.4 MG CAPS 612309 TAMSULOSIN HCL Inactive CLEMASTINE FUMARATE 1.34 MG ORAL TABS 1 tab PO BID CLEMASTINE FUMARATE 1.34 MG ORAL TABS 882770 CLEMASTINE FUMARATE Inactive POLY-IRON 150 150 MG CAPS 1 tab po bid POLY-IRON 150 150 MG CAPS POLYSACCHARIDE IRON COMPLEX Inactive NYSTATIN 443854 UNIT/GM CREA apply to rash TID PRN NYSTATIN 826518 UNIT/GM CREA 135439 NYSTATIN Inactive [id number]-[id number]-TUMH 167-83-8 MG TABS 1 tab po daily [id number] 167-83-8 MG TABS [id number]-[id number]-CJUF Inactive MS CONTIN 100 MG FE86P-QPT 1 by mouth twice a day MS CONTIN 100 MG [id number] MORPHINE SULFATE Inactive ENDOCET 10-325 MG TABS 1 by mouth twice a day ENDOCET 10-325 MG TABS 4300492 OXYCODONE-ACETAMINOPHEN Inactive HYDROXYZINE HCL 25 MG TAB take 1 every 4-6 hours as needed 07/01 HYDROXYZINE HCL 25 MG TAB 706615 HYDROXYZINE HCL Inactive ALPRAZOLAM 2 MG TABS 1 tablet by mouth three times daily as needed ALPRAZOLAM 2 MG TABS 909684 ALPRAZOLAM Inactive NEXIUM 40 MG CPDR 1 cap by mouth daily NEXIUM 40 MG CPDR 104815 ESOMEPRAZOLE MAGNESIUM Inactive Advance Directives Directive Description [...] ... - Chemistry sodium, serum 140 mmol/L 165-238 3487/03/25 carbon dioxide, venous blood 31.3 mmol/L 21.0-32.0 potassium, serum 4.0 mmol/L 3.5-5.2 chloride, serum 101 mmol/L 98-107 blood glucose 96 mg/dL 65-110 urea nitrogen, blood 7 mg/dL 7-18 creatinine, serum 0.94 mg/dL 0.55-1.30 alanine aminotransferase (SGPT), serum 23 U/L 12-78 aspartate aminotransferase (SGOT), serum 21 U/L 15-37 calcium, serum 8.9 mg/dL 8.5-10.1 bilirubin, serum, total 0.30 mg/dL 0.00-1.00 cholesterol, serum 169 mg/dL 243-402 8775/03/25 triglyceride, serum, fasting 143 mg/dL 30-200 HDL [...] 5.0-8.5 Encounters Code Encounter Date Provider Facility CPT-88112 Level 3 Est. Patient 11:07:48 CDT Wily Zhang [facility] CPT-41872 Level 3 Est. Patient 11:24:24 CDT Wily W [facility] CPT-97232 Level 3 Est. Patient 15:19:54 SENIOR TECHNICAL BUSINESS ANALYST Wily Gonzalez [facility] CPT-39335 Level 3 Est. Patient 10:04:45 CDT Wily Gonzalez DO [facility] CPT-81506 Level 3 Est. Patient 13:04:06 CDT Wily Gonzalez [facility] CPT-39104 Level 3 Est. Patient 12:23:04 CDT Wily Gonzalez [facility] CPT-34170 Level 3 Est. Patient 15:43:10 SENIOR TECHNICAL BUSINESS ANALYST Wily Gonzalez [facility] CPT-99612 Level 3 Est. Patient 16:10:54 CDT Wily Gonzalez [facility] CPT-22195 Level 3 Est. Patient 19:50:51 CDT Wily Gonzalez [facility] CPT-22826 Level 3 Est. Patient 12:02:30 SENIOR TECHNICAL BUSINESS ANALYST Wily Gonzalez [facility] CPT-90439 Level 3 Est. Patient 12:03:11 SENIOR TECHNICAL BUSINESS ANALYST Wily Gonzalez [facility] CPT-43499 Level 3 Est. Patient 12:01:41 SENIOR TECHNICAL BUSINESS ANALYST Wily Gonzalez [facility] CPT-61107 Level 3 Est. Patient 11:51:24 SENIOR TECHNICAL BUSINESS ANALYST Wily Gonzalez [facility] CPT-73930 Level 3 Est. Patient 11:58:20 SENIOR TECHNICAL BUSINESS ANALYST Wily Gonzalez [facility] CPT-59390 Level 3 Est. Patient 08:31:36 SENIOR TECHNICAL BUSINESS ANALYST Wily Gonzalez [facility] CPT-53473 Level 3 Est. Patient 21:57:36 CDT Wily Gonzalez [facility] CPT-50762 Level 3 Est. Patient 10:49:58 CDT Esvin Hudson [facility] CPT-37301 Level 3 Est. Patient 11:22:52 CDT Esvin PAULA [facility] CPT-43963 Level 3 Est. Patient 13:49:41 CDT Esvin PAULA [facility]-62540 Level 3 Est. Patient 11:54:53 CDT Esvin PAULA [facility] CPT-79852 Level 3 Est. Patient 09:07:11 CDT Esvin PAULA [facility] CPT-49528 Level 3 Est. Patient 13:52:47 CDT Esvin Hudson [facility] CPT-58147 Level 3 Est. Patient 11:26:46 CDT Esvin Hudson CHAI [facility] CPT-14232 Level 3 Est. Patient 10:25:00 SENIOR TECHNICAL BUSINESS ANALYST Esvin Hudson CHAI [facility] CPT-79044 Level 3 Est. Patient 11:39:11 SENIOR TECHNICAL BUSINESS ANALYST Esvin PAULA [facility] CPT-12976 Level 3 Est. Patient 13:24:24 SENIOR TECHNICAL BUSINESS ANALYST Esvin PAULA [facility] CPT-29722 Level 3 Est. Patient 10:26:13 SENIOR TECHNICAL BUSINESS ANALYST Esvin PAULA [facility] CPT-42475 Level 3 Est. Patient 10:21:21 CDT Esvin PAULA [facility] CPT-89955 Level 3 Est. Patient 10:26:30 CDT Esvin PAULA [facility] CPT-77935 Level 3 Est. Patient 09:16:37 CDT Esvin Hudson CHAI [facility]-49798 Level 3 Est. Patient 09:06:58 CDT Esivn PAULA [facility] CPT-31452 Level 3 Est. Patient 10:05:29 CDT Esvin Tristan CHAI [facility] CPT-26533 Level 3 Est. Patient 10:38:45 CDT Esvin Tristan PA [facility] CPT-03471 Level 3 Est. Patient 10:09:45 CDT Esvin Tristan PA [facility] CPT-80167 Level 3 Est. Patient 09:26:37 CDT Esvin Tristan [facility] CPT-02935 Level 3 Est. Patient 10:34:42 SENIOR TECHNICAL BUSINESS ANALYST Esvin Tristan [facility] CPT-18682 Level 3 Est. Patient 10:45:47 SENIOR TECHNICAL BUSINESS ANALYST Esvin [facility] CPT-66651 Level 3 Est. Patient 10:45:22 SENIOR TECHNICAL BUSINESS ANALYST Esvin [facility] CPT-22880 Level 3 Est. Patient 14:18:30 SENIOR TECHNICAL BUSINESS ANALYST Esvin [facility] CPT-07583 Level 3 Est. Patient 13:53:29 SENIOR TECHNICAL BUSINESS ANALYST Esvin [facility] CPT-88806 Level 3 Est. Patient 10:34:11 CDT Esvin [facility] Procedures Code Procedure Name Date Entry Date Standard Description CPT-34621 Venipuncture Draw Fee 09:26:55 CDT CPT-59359 Venipuncture Draw Fee 11:55:52 CDT CPT-78768 Spec Collection and Handling Fee 09:16:37 CDT CPT-51134 Venipuncture Draw Fee 09:16:37 CDT
--- OUTSIDE RECORDS SUMMARY | 2018-02-26 14:54 | XMS REPORT | Clinical Summary ---
Author Author Admin, E Organization [employer] Address Unknown Phone Unavailable Allergies, Adverse [...] Generic Name NDC Status Provider Patient Instruction [id number]-[id number] 167-83-8 MG TABS 1 tab po daily [id number] No Longer Active Wily Gonzalez DO Active NYSTATIN 782964 UNIT/GM CREA apply to rash TID PRN NYSTATIN 26559787297 No Longer Active Wily Gonzalez DO Active POLY-IRON 150 150 MG CAPS 1 tab po bid POLYSACCHARIDE IRON COMPLEX 02137031968 No Longer Active iWly Gonzalez DO Active FLONASE ALLERGY RELIEF 50 MCG/ACT NASAL SUSP 2 sprays each nostril every day FLUTICASONE PROPIONATE 57060737936 Active Wily Gonzalez DO Active CLEMASTINE FUMARATE 1.34 MG ORAL TABS 1 tab PO BID CLEMASTINE FUMARATE 77802258691 No Longer Active Wily Gonzalez DO Active FLOMAX 0.4 MG CAPS 1 capsule in the evening for night time urination. TAMSULOSIN HCL 98483345339 No Longer Active Wily Gonzalez DO Active PROTONIX 40 MG TBEC 1 po daily PANTOPRAZOLE SODIUM 05996790869 Active Agnieszka Yeung Active HYDROXYZINE HCL 25 MG TAB 1 two times a day as needed for anxiety HYDROXYZINE HCL 45975096765 No Longer Active Wily Gonzalez DO Active ANUSOL-HC 25 MG SUPPOSITORY 1 rectally every 12 hours for irritation HYDROCORTISONE NAEL (RECTAL) 93061399746 No Longer Active Wily Gonzalez DO Active HYDROXYZINE HCL 25 MG TABS Take one (1) tablet by mouth twice a day HYDROXYZINE HCL 82916545409 No Longer Active Wily Gonzalez DO Active ZIAC 2.5-6.25 MG TAB 1 tablet daily for high blood pressure 10/27 BISOPROLOL-HCTZ 41770065740 No Longer Active Wily Gonzalez DO Active ZIAC 2.5-6.25 MG TAB 1 tablet every morning for high blood pressure BISOPROLOL-HCTZ 43823377045 No Longer Active Wily Gonzalez DO Active AMOXICILLIN 500 MG CAPS Take one (1) tablet by mouth three times a day 05/05 AMOXICILLIN 68666616743 No Longer Active Wily Gonzalez DO Active MORPHINE SULFATE ER 100 MG CR-TABS Take one (1) tablet by mouth twice a day MORPHINE SULFATE 69504084117 No Longer Active Wily Gonzalez DO Active MORPHINE SULFATE ER 100 MG [id number] 1 capsule twice daily for chronic pain MORPHINE SULFATE 94402098128 Active Rose Bang Active CIALIS 10 MG TABS 1 every 72 hours as needed TADALAFIL 75651048077 No Longer Active Esvin PAULA Active FLONASE 50 MCG/ACT SUSP 2 SPRAY EACH NARE DAILY FLUTICASONE PROPIONATE 24528102955 No Longer Active Esvin PAULA Active CYCLOBENZAPRINE HCL 10 MG TABS Take one (1) tablet by mouth three times a day CYCLOBENZAPRINE HCL 62425831027 Active Agnieszka Gamal Active OPANA ER (CRUSH RESISTANT) 40 MG [id number] Take one (1) tablet by mouth twice a day OXYMORPHONE HCL 44271610321 No Longer Active Esvin PAULA Active PROAIR HFA 108 (90 BASE) MCG/ACT AERS 2 puffs every four hours as needed ALBUTEROL SULFATE 02031356896 No Longer Active Esvin PAULA Active CLEARLAX POWD 17gm q day prn constipation POLYETHYLENE GLYCOL 3350 40087898309 Active Kaylen Leigh MA Active MORPHINE SULFATE ER 100 MG [id number] Take one (1) tablet by mouth twice a day MORPHINE SULFATE 00464517021 No Longer Active Esvin PAULA Active FLEXERIL 10 MG TAB 1 tablet by mouth 3 times daily as needed CYCLOBENZAPRINE HCL 68050993017 No Longer Active Esvin PAULA Active CELEBREX 200 MG CAPS 1 tablet by mouth twice daily with meals CELECOXIB 41445802034 No Longer Active Esvin PAULA Active NEXIUM 40 MG CPDR 1 cap daily ESOMEPRAZOLE MAGNESIUM 46883801995 No Longer Active Esvin PAULA Active MOBIC 15 MG TABS 1 tab daily MELOXICAM 96765949128 No Longer Active Esvin PAULA Active LISINOPRIL 20 MG TABS Take 1 tablet by mouth daily LISINOPRIL 18176468508 No Longer Active Esvin PAULA Active DICLOFENAC SODIUM 50 MG TBEC 1 tablet by mouth four times daily DICLOFENAC SODIUM 85375047652 No Longer Active Paula Cooney RN Active VERAMYST 27.5 MCG/SPRAY SUSP 2 spray each nare daily FLUTICASONE FUROATE 49829589252 No Longer Active Megan Vargas RN Active ENDOCET 10-325 MG TABS Take one (1) tablet by mouth three times a day OXYCODONE-ACETAMINOPHEN 33905669532 Active Rose Bang Active ALPRAZOLAM 2 MG TABS Take one (1) tablet by mouth three times a day ALPRAZOLAM 63880205678 Active Rose Bang Active NEXIUM 40 MG CPDR 1 cap by mouth daily ESOMEPRAZOLE MAGNESIUM 36829845228 No Longer Active Esvin PAULA Active ALPRAZOLAM 2 MG TABS 1 tablet by mouth three times daily as needed ALPRAZOLAM 46412508519 No Longer Active Esvin PAULA Active HYDROXYZINE HCL 25 MG TAB take 1 every 4-6 hours as needed 07/01 HYDROXYZINE HCL 95532382792 No Longer Active Esvin PAULA Active ENDOCET 10-325 MG TABS 1 by mouth twice a day OXYCODONE-ACETAMINOPHEN 00802970676 No Longer Active Esvin PAULA Active MS CONTIN 100 MG [id number] 1 by mouth twice a day MORPHINE SULFATE 02468118555 No Longer Active Esvin PAULA Active SUDAFED 30 MG TAB 1-2 every 4-6 hours as needed PSEUDOEPHEDRINE HCL 36772506129 Active Marylou Melissa RPT,RMA Active VERAMYST 27.5 MCG/SPRAY SUSP 2 spray each nare daily VERAMYST 27.5 MCG/SPRAY SUSP FLUTICASONE FUROATE Inactive DICLOFENAC SODIUM 50 MG TBEC 1 tablet by mouth four times daily DICLOFENAC SODIUM 50 MG TBEC 047490 DICLOFENAC SODIUM Inactive LISINOPRIL 20 MG TABS Take 1 tablet by mouth daily LISINOPRIL 20 MG TABS 930614 LISINOPRIL Inactive MOBIC 15 MG TABS 1 tab daily MOBIC 15 MG TABS 618866 MELOXICAM Inactive NEXIUM 40 MG CPDR 1 cap daily NEXIUM 40 MG CPDR 325627 ESOMEPRAZOLE MAGNESIUM Inactive CELEBREX 200 MG CAPS 1 tablet by mouth twice daily with meals CELEBREX 200 MG CAPS 743074 CELECOXIB Inactive FLEXERIL 10 MG TAB 1 [...] a day 05/05 AMOXICILLIN 500 MG CAPS 412209 AMOXICILLIN Inactive ZIAC 2.5-6.25 MG TAB 1 tablet every morning for high blood pressure ZIAC 2.5-6.25 MG TAB 587879 BISOPROLOL-HCTZ Inactive ZIAC 2.5-6.25 MG TAB 1 tablet daily for high blood pressure 10/27 ZIAC 2.5-6.25 MG TAB 792110 BISOPROLOL-HCTZ Inactive HYDROXYZINE HCL 25 MG TABS Take one (1) tablet by mouth twice a day HYDROXYZINE HCL 25 MG TABS 262390 HYDROXYZINE HCL Inactive ANUSOL-HC 25 MG SUPPOSITORY 1 rectally every 12 hours for irritation ANUSOL-HC 25 MG SUPPOSITORY 3256403 HYDROCORTISONE NAEL (RECTAL ) Inactive HYDROXYZINE HCL 25 MG TAB 1 two times a day as needed for anxiety HYDROXYZINE HCL 25 MG TAB 792591 HYDROXYZINE HCL Inactive FLOMAX 0.4 MG CAPS 1 capsule in the evening for night time urination. FLOMAX 0.4 MG CAPS 878110 TAMSULOSIN HCL Inactive CLEMASTINE FUMARATE 1.34 MG ORAL TABS 1 tab PO BID CLEMASTINE FUMARATE 1.34 MG ORAL TABS 504634 CLEMASTINE FUMARATE Inactive POLY-IRON 150 150 MG CAPS 1 tab po bid POLY-IRON 150 150 MG CAPS POLYSACCHARIDE IRON COMPLEX Inactive NYSTATIN 220937 UNIT/GM CREA apply to rash TID PRN NYSTATIN 334204 UNIT/GM CREA 070645 NYSTATIN Inactive [id number]-[id number]-[id number] 167-83-8 MG TABS 1 tab po daily CLOWSMY-AMFJIOTTK-[id number] 167-83-8 MG TABS [id number] Inactive MS CONTIN 100 MG [id number] 1 by mouth twice a day MS CONTIN 100 MG [id number] MORPHINE SULFATE Inactive ENDOCET 10-325 MG TABS 1 by mouth twice a day ENDOCET 10-325 MG TABS 5049176 OXYCODONE-ACETAMINOPHEN Inactive HYDROXYZINE HCL 25 MG TAB take 1 every 4-6 hours as needed 07/01 HYDROXYZINE HCL 25 MG TAB 367417 HYDROXYZINE HCL Inactive ALPRAZOLAM 2 MG TABS 1 tablet by mouth three times daily as needed ALPRAZOLAM 2 MG TABS 768885 ALPRAZOLAM Inactive NEXIUM 40 MG CPDR 1 cap by mouth daily NEXIUM 40 MG CPDR 329509 ESOMEPRAZOLE MAGNESIUM Inactive Advance Directives Directive Description [...] ... - Chemistry sodium, serum 140 mmol/L 689-749 9302/03/25 carbon dioxide, venous blood 31.3 mmol/L 21.0-32.0 potassium, serum 4.0 mmol/L 3.5-5.2 chloride, serum 101 mmol/L 98-107 blood glucose 96 mg/dL 65-110 urea nitrogen, blood 7 mg/dL 7-18 creatinine, serum 0.94 mg/dL 0.55-1.30 alanine aminotransferase (SGPT), serum 23 U/L 12-78 aspartate aminotransferase (SGOT), serum 21 U/L 15-37 calcium, serum 8.9 mg/dL 8.5-10.1 bilirubin, serum, total 0.30 mg/dL 0.00-1.00 cholesterol, serum 169 mg/dL 350-733 1567/03/25 triglyceride, serum, fasting 143 mg/dL 30-200 HDL [...] 5.0-8.5 Encounters Code Encounter Date Provider Facility CPT-91003 Level 3 Est. Patient 11:07:[address] [facility] CPT-95988 Level 3 Est. Patient 11:24:[address] [facility] CPT-67979 Level 3 Est. Patient 15:19:54 STEAM ROLLER OPERATOR Wily Zhang [facility] CPT-86379 Level 3 Est. Patient 10:04:45 CDT Wily Gonzalez [facility] CPT-80676 Level 3 Est. Patient 13:04:06 CDT Wily Gonzalez [facility] CPT-31706 Level 3 Est. Patient 12:23:04 CDT Wily Gonzalez [facility] CPT-66083 Level 3 Est. Patient 15:43:10 STEAM ROLLER OPERATOR Wily Gonzalez [facility] CPT-82508 Level 3 Est. Patient 16:10:54 CDT Wily Gonzalez [facility] CPT-80494 Level 3 Est. Patient 19:50:51 CDT Wily Gonzalez [facility] CPT-75096 Level 3 Est. Patient 12:02:30 STEAM ROLLER OPERATOR Wily Gonzalez [facility] CPT-78027 Level 3 Est. Patient 12:03:11 STEAM ROLLER OPERATOR Wily Gonzalez [facility] CPT-99717 Level 3 Est. Patient 12:01:41 STEAM ROLLER OPERATOR Wily Gonzalez [facility] CPT-90869 Level 3 Est. Patient 11:51:24 STEAM ROLLER OPERATOR Wily Gonzalez [facility] CPT-80079 Level 3 Est. Patient 11:58:20 STEAM ROLLER OPERATOR Wily Gonzalez [facility] CPT-13306 Level 3 Est. Patient 08:31:36 STEAM ROLLER OPERATOR Wily Gonzalez [facility] CPT-51647 Level 3 Est. Patient 21:57:36 CDT Wily Gonzalez [facility] CPT-57024 Level 3 Est. Patient 10:49:58 CDT Esvin PAULA [facility] CPT-64660 Level 3 Est. Patient 11:22:52 CDT Esvin PAULA [facility] CPT-42481 Level 3 Est. Patient 13:49:41 CDT Esvin PAULA [facility] CPT-25062 Level 3 Est. Patient 11:54:53 CDT Esvin PAULA [facility] CPT-04410 Level 3 Est. Patient 09:07:11 CDT Esvin PAULA CPT-98331 Level 3 Est. Patient 13:52:47 CDT Esvin PAULA [facility] CPT-31662 Level 3 Est. Patient 11:26:46 CDT Esvin PAULA [facility] CPT-75783 Level 3 Est. Patient 10:25:00 STEAM ROLLER OPERATOR Esvin PAULA [facility] CPT-36346 Level 3 Est. Patient 11:39:11 STEAM ROLLER OPERATOR Esvin PAULA CPT-30034 Level 3 Est. Patient 13:24:24 STEAM ROLLER OPERATOR Esvin PAULA CPT-00781 Level 3 Est. Patient 10:26:13 STEAM ROLLER OPERATOR Esvin Hudson [facility] CPT-86902 Level 3 Est. Patient 10:21:21 CDT Esvin PAULA CPT-17760 Level 3 Est. Patient 10:26:30 CDT Esvin PAULA CPT-98791 Level 3 Est. Patient 09:16:37 CDT Esvin PAULA [facility]-40377 Level 3 Est. Patient 09:06:58 CDT Esvin PAULA CPT-27625 Level 3 Est. Patient 10:05:29 CDT Esvin PAULA CPT-15031 Level 3 Est. Patient 10:38:45 CDT Esvin Hudson [facility] CPT-44014 Level 3 Est. Patient 10:09:45 CDT Esvin Moore PA CPT-69856 Level 3 Est. Patient 09:26:37 CDT Esvin Moore [facility] CPT-42064 Level 3 Est. Patient 10:34:42 STEAM ROLLER OPERATOR Esvin Tristan [facility] CPT-07040 Level 3 Est. Patient 10:45:47 STEAM ROLLER OPERATOR Esvin Tristan [facility] CPT-42778 Level 3 Est. Patient 10:45:22 STEAM ROLLER OPERATOR Esvin Moore [facility] CPT-10559 Level 3 Est. Patient 14:18:30 STEAM ROLLER OPERATOR Esvin Moore [facility] CPT-70372 Level 3 Est. Patient 13:53:29 STEAM ROLLER OPERATOR Esvin Moore [facility] CPT-57700 Level 3 Est. Patient 10:34:11 CDT Esvin Moore [facility] Procedures Code Procedure Name Date Entry Date Standard Description CPT-39842 Venipuncture Draw Fee 09:26:55 CDT CPT-98900 Venipuncture Draw Fee 11:55:52 CDT CPT-52811 Spec Collection and Handling Fee 09:16:37 CDT CPT-44307 Venipuncture Draw Fee 09:16:37 CDT
--- OUTSIDE RECORDS SUMMARY | 2018-02-26 14:55 | XMS REPORT | Clinical Summary ---
[...] lying down x 1 hour. ALENDRONATE SODIUM [id number] Active Rose Bang Active CALCIUM 600 MG ORAL TABS 1 po q day CALCIUM 70625561627 Active Rose Bang Active CHANTIX 1 MG TABS 1 twice a day VARENICLINE TARTRATE 58576888252 Active Wily Gonzalez DO Active TRIAMCINOLONE ACETONIDE 0.1 % CREA Apply to affected area 3 times daily for up to 2 weeks TRIAMCINOLONE ACETONIDE 87145065746 Active Wily Gonzalez DO Active [id number] 167-83-8 MG TABS 1 tab po daily [id number] 91058167293 No Longer Active Wily Gonzalez DO Active NYSTATIN 149802 UNIT/GM CREA apply to rash TID PRN NYSTATIN 15622221464 No Longer Active Wily Gonzalez DO Active POLY-IRON 150 150 MG CAPS 1 tab po bid POLYSACCHARIDE IRON COMPLEX 99652300986 No Longer Active Wily Gonzalez DO Active FLONASE ALLERGY RELIEF 50 MCG/ACT NASAL SUSP 2 sprays each nostril every day FLUTICASONE PROPIONATE 51837881604 Active Jodi Lucas APRN Active CLEMASTINE FUMARATE 1.34 MG ORAL TABS 1 tab PO BID CLEMASTINE FUMARATE 50095526923 No Longer Active Wily Gonzalez DO Active FLOMAX 0.4 MG CAPS 1 capsule in the evening for night time urination. TAMSULOSIN HCL 00647642501 No Longer Active Wily Gonzalez DO Active PROTONIX 40 MG TBEC 1 po daily PANTOPRAZOLE SODIUM 09280439960 Active Agnieszka Yeung Active HYDROXYZINE HCL 25 MG TAB 1 two times a day as needed for anxiety HYDROXYZINE HCL 03810625910 No Longer Active Wily Gonzalez DO Active ANUSOL-HC 25 MG SUPPOSITORY 1 rectally every 12 hours for irritation HYDROCORTISONE NAEL (RECTAL) 58433466457 No Longer Active Wily Gonzalez DO Active HYDROXYZINE HCL 25 MG TABS Take one (1) tablet by mouth twice a day HYDROXYZINE HCL 04171627557 No Longer Active Wily Gonzalez DO Active ZIAC 2.5-6.25 MG TAB 1 tablet daily for high blood pressure 10/27 BISOPROLOL-HCTZ 72882293476 No Longer Active Wily Gonzalez DO Active ZIAC 2.5-6.25 MG TAB 1 tablet every morning for high blood pressure BISOPROLOL-HCTZ 94750039085 No Longer Active Wily Gonzalez DO Active AMOXICILLIN 500 MG CAPS Take one (1) tablet by mouth three times a day 05/05 AMOXICILLIN 50927961363 No Longer Active Wily Gonzalez DO Active MORPHINE SULFATE ER 100 MG CR-TABS Take one (1) tablet by mouth twice a day MORPHINE SULFATE 25014683188 No Longer Active Wily Gonzalez DO Active MORPHINE SULFATE ER 100 MG [id number] 1 capsule twice daily for chronic pain MORPHINE SULFATE 60823188063 Active Wily Gonzalez DO Active CIALIS 10 MG TABS 1 every 72 hours as needed TADALAFIL 40074901065 No Longer Active Esvin PAULA Active FLONASE 50 MCG/ACT SUSP 2 SPRAY EACH NARE DAILY FLUTICASONE PROPIONATE 18016723499 No Longer Active Esvin PAULA Active CYCLOBENZAPRINE HCL 10 MG TABS Take one (1) tablet by mouth three times a day CYCLOBENZAPRINE HCL 54918263485 Active Lisa Berkowitz Active OPANA ER (CRUSH RESISTANT) 40 MG XQ16P-[id number] Take one (1) tablet by mouth twice a day OXYMORPHONE HCL 35053675000 No Longer Active Esvin PAULA Active PROAIR HFA 108 (90 BASE) MCG/ACT AERS 2 puffs every four hours as needed ALBUTEROL SULFATE 59287767398 No Longer Active Esvin PAULA Active CLEARLAX POWD 17gm q day prn constipation POLYETHYLENE GLYCOL 3350 55562623821 Active Wily Gonzalez DO Active MORPHINE SULFATE ER 100 MG UH50M-HTT Take one (1) tablet by mouth twice a day MORPHINE SULFATE 39784852543 No Longer Active Esvin PAULA Active FLEXERIL 10 MG TAB 1 tablet by mouth 3 times daily as needed CYCLOBENZAPRINE HCL 25503286722 No Longer Active Esvin PAULA Active CELEBREX 200 MG CAPS 1 tablet by mouth twice daily with meals CELECOXIB 37151966483 No Longer Active Esvin PAULA Active NEXIUM 40 MG CPDR 1 cap daily ESOMEPRAZOLE MAGNESIUM 44556008574 No Longer Active Esvin PAULA Active MOBIC 15 MG TABS 1 tab daily MELOXICAM 82803573591 No Longer Active Esvin PAULA Active LISINOPRIL 20 MG TABS Take 1 tablet by mouth daily LISINOPRIL 51060044599 No Longer Active Esvin PAULA Active DICLOFENAC SODIUM 50 MG TBEC 1 tablet by mouth four times daily DICLOFENAC SODIUM 27370898851 No Longer Active Paula Cooney RN Active VERAMYST 27.5 MCG/SPRAY SUSP 2 spray each nare daily FLUTICASONE FUROATE 89876623677 No Longer Active Megan Vargas RN Active ENDOCET 10-325 MG TABS Take one (1) tablet by mouth three times a day OXYCODONE-ACETAMINOPHEN 48579264928 Active Wily Gonzalez DO Active ALPRAZOLAM 2 MG TABS Take one (1) tablet by mouth three times a day ALPRAZOLAM 96205873414 Active Wily Gonzalez DO Active NEXIUM 40 MG CPDR 1 cap by mouth daily ESOMEPRAZOLE MAGNESIUM 41387964887 No Longer Active Esvin PAULA Active ALPRAZOLAM 2 MG TABS 1 tablet by mouth three times daily as needed ALPRAZOLAM 61798955698 No Longer Active Esvin PAULA Active HYDROXYZINE HCL 25 MG TAB take 1 every 4-6 hours as needed 07/01 HYDROXYZINE HCL 53619051505 No Longer Active Esvin PAULA Active ENDOCET 10-325 MG TABS 1 by mouth twice a day OXYCODONE-ACETAMINOPHEN 50828534688 No Longer Active Esvin PAULA Active MS CONTIN 100 MG [id number] 1 by mouth twice a day MORPHINE SULFATE 46424539703 No Longer Active Esvin PAULA Active SUDAFED 30 MG TAB 1-2 every 4-6 hours as needed PSEUDOEPHEDRINE HCL 43116508578 Active Marylou Melissa RPT,RMA Active ALPRAZOLAM 2 MG TABS 1 tablet by mouth three times daily as needed ALPRAZOLAM 2 MG TABS 775481 ALPRAZOLAM Inactive AMOXICILLIN 500 MG CAPS Take one (1) tablet by mouth three times a day 05/05 AMOXICILLIN 500 MG CAPS 083311 AMOXICILLIN Inactive ANUSOL-HC 25 MG SUPPOSITORY 1 rectally every 12 hours for irritation ANUSOL-HC 25 MG SUPPOSITORY 8812084 HYDROCORTISONE NAEL (RECTAL ) Inactive CLEMASTINE FUMARATE 1.34 MG ORAL TABS 1 tab PO BID CLEMASTINE FUMARATE 1.34 MG ORAL TABS 403984 CLEMASTINE FUMARATE Inactive FLEXERIL 10 MG TAB 1 tablet by mouth 3 times daily as needed FLEXERIL 10 MG TAB CYCLOBENZAPRINE HCL Inactive HYDROXYZINE HCL 25 MG TAB 1 two times a day as needed for anxiety HYDROXYZINE HCL 25 MG TAB 667622 HYDROXYZINE HCL Inactive HYDROXYZINE HCL 25 MG TAB take 1 every 4-6 hours as needed 07/01 HYDROXYZINE HCL 25 MG TAB 673877 HYDROXYZINE HCL Inactive HYDROXYZINE HCL 25 MG TABS Take one (1) tablet by mouth twice a day HYDROXYZINE HCL 25 MG TABS 549572 HYDROXYZINE HCL Inactive LISINOPRIL 20 MG TABS Take 1 tablet by mouth daily LISINOPRIL 20 MG TABS 841694 LISINOPRIL Inactive NYSTATIN 423284 UNIT/GM CREA apply to rash TID PRN NYSTATIN 545184 UNIT/GM CREA 972084 NYSTATIN Inactive DICLOFENAC SODIUM 50 MG TBEC 1 tablet by mouth four times daily DICLOFENAC SODIUM 50 MG TBEC 632299 DICLOFENAC SODIUM Inactive ZIAC 2.5-6.25 MG TAB 1 tablet every morning for high blood pressure ZIAC 2.5-6.25 MG TAB 878658 BISOPROLOL-HCTZ Inactive ZIAC 2.5-6.25 MG TAB 1 tablet daily for high blood pressure 10/27 ZIAC 2.5-6.25 MG TAB 573579 BISOPROLOL-HCTZ Inactive CELEBREX 200 MG CAPS 1 tablet by mouth twice daily with meals CELEBREX 200 MG CAPS 796295 CELECOXIB Inactive MOBIC 15 MG TABS 1 tab daily MOBIC 15 MG TABS 378920 MELOXICAM Inactive NEXIUM 40 MG CPDR 1 cap daily NEXIUM 40 MG CPDR 577285 ESOMEPRAZOLE MAGNESIUM Inactive NEXIUM 40 MG CPDR 1 cap by mouth daily NEXIUM 40 MG CPDR 434000 ESOMEPRAZOLE MAGNESIUM Inactive FLONASE 50 MCG/ACT SUSP 2 SPRAY EACH NARE DAILY FLONASE 50 MCG/ACT SUSP FLUTICASONE PROPIONATE Inactive POLY-IRON 150 150 MG CAPS 1 tab po bid POLY-IRON 150 150 MG CAPS POLYSACCHARIDE IRON COMPLEX Inactive ENDOCET 10-325 MG TABS 1 by mouth twice a day ENDOCET 10-325 MG TABS 2871769 OXYCODONE-ACETAMINOPHEN Inactive CIALIS 10 MG TABS 1 every 72 hours as needed CIALIS 10 MG TABS TADALAFIL Inactive PROAIR HFA 108 (90 BASE) MCG/ACT AERS 2 puffs every four hours as needed PROAIR HFA 108 (90 BASE) MCG/ACT AERS ALBUTEROL SULFATE Inactive [id number] 167-83-8 MG TABS 1 tab po daily [id number]-[id number] 167-83-8 MG TABS [id number] Inactive VERAMYST 27.5 MCG/SPRAY SUSP 2 spray each nare daily VERAMYST 27.5 MCG/SPRAY SUSP FLUTICASONE FUROATE Inactive FLOMAX 0.4 MG CAPS 1 capsule in the evening for night time urination. FLOMAX 0.4 MG CAPS 019332 TAMSULOSIN HCL Inactive MORPHINE SULFATE ER 100 MG CR-TABS Take one (1) tablet by mouth twice a day MORPHINE SULFATE ER 100 MG CR-TABS MORPHINE SULFATE Inactive MS CONTIN 100 MG [id number] 1 by mouth twice a day MS CONTIN 100 MG [id number] MORPHINE SULFATE Inactive Advance Directives Directive Description [...] ... - Chemistry sodium, serum 140 mmol/L 559-651 8173/03/25 carbon dioxide, venous blood 31.3 mmol/L 21.0-32.0 potassium, serum 4.0 mmol/L 3.5-5.2 chloride, serum 101 mmol/L 98-107 blood glucose 96 mg/dL 65-110 urea nitrogen, blood 7 mg/dL 7-18 creatinine, serum 0.94 mg/dL 0.55-1.30 alanine aminotransferase (SGPT), serum 23 U/L 12-78 aspartate aminotransferase (SGOT), serum 21 U/L 15-37 calcium, serum 8.9 mg/dL 8.5-10.1 bilirubin, serum, total 0.30 mg/dL 0.00-1.00 cholesterol, serum 169 mg/dL 535-292 9120/03/25 triglyceride, serum, fasting 143 mg/dL 30-200 HDL [...] 5.0-8.5 Encounters Code Encounter Date Provider Facility CPT-38642 Level 3 Est. Patient 09:51:37 FOOT CASTER Wily Gonzalez [facility] CPT-22769 Level 3 Est. Patient 11:07:48 CDT Wily Gonzalez [facility] CPT-45448 Level 3 Est. Patient 11:24:24 CDT Wily Gonzalez [facility] CPT-71484 Level 3 Est. Patient 15:19:54 FOOT CASTER Wily Gonzalez [facility] CPT-11950 Level 3 Est. Patient 10:04:45 CDT Wily Gonzalez [facility] CPT-65876 Level 3 Est. Patient 13:04:06 CDT Wily Gonzalez [facility] CPT-04930 Level 3 Est. Patient 12:23:04 CDT Wily Gonzalez [facility] CPT-20476 Level 3 Est. Patient 15:43:10 FOOT CASTER Wily Gonzalez [facility] CPT-13582 Level 3 Est. Patient 16:10:54 CDT Wily Gonzalez [facility] CPT-80927 Level 3 Est. Patient 19:50:51 CDT Wily Gonzalez [facility] CPT-82520 Level 3 Est. Patient 12:02:30 FOOT CASTER Wily Gonzalez [facility] CPT-07587 Level 3 Est. Patient 12:03:11 FOOT CASTER Wily Gonzalez [facility] CPT-81566 Level 3 Est. Patient 12:01:41 FOOT CASTER Wily Gonzalez [facility] CPT-93889 Level 3 Est. Patient 11:51:24 FOOT CASTER Wily Gonzalez [facility] CPT-51686 Level 3 Est. Patient 11:58:20 FOOT CASTER Wily Gonzalez [facility] CPT-70781 Level 3 Est. Patient 08:31:36 FOOT CASTER Wily Gonzalez [facility] CPT-08246 Level 3 Est. Patient 21:57:36 CDT Wily Gonzalez [facility] CPT-02991 Level 3 Est. Patient 10:49:58 CDT Esvin Hudson [facility] CPT-53448 Level 3 Est. Patient 11:22:52 CDT Esvin Hudson [facility] CPT-07667 Level 3 Est. Patient 13:49:41 CDT Esvin Hudson [facility] CPT-11516 Level 3 Est. Patient 11:54:53 CDT Esvin PAULA [facility] CPT-13779 Level 3 Est. Patient 09:07:11 CDT Esvin Hudson [facility] CPT-27193 Level 3 Est. Patient 13:52:47 CDT Esvin PAULA [facility] CPT-30486 Level 3 Est. Patient 11:26:46 CDT Esvin PAULA [facility] CPT-99837 Level 3 Est. Patient 10:25:00 FOOT CASTER Esvin PAULA [facility] CPT-89714 Level 3 Est. Patient 11:39:11 FOOT CASTER Esvin Hudson [facility] CPT-13315 Level 3 Est. Patient 13:24:24 FOOT CASTER Esvin PAULA [facility] CPT-96980 Level 3 Est. Patient 10:26:13 FOOT CASTER Esvin PAULA [facility] CPT-51347 Level 3 Est. Patient 10:21:21 CDT Esvin Hudson [facility] CPT-85255 Level 3 Est. Patient 10:26:30 CDT Esvin PAULA [facility] CPT-63990 Level 3 Est. Patient 09:16:37 CDT Esvin Hudson [facility] CPT-89075 Level 3 Est. Patient 09:06:58 CDT Esvin PAULA [facility] CPT-79022 Level 3 Est. Patient 10:05:29 CDT Esvin PAULA [facility] CPT-47167 Level 3 Est. Patient 10:38:45 CDT Esvin PAULA [facility] CPT-83675 Level 3 Est. Patient 10:09:45 CDT Esvin Hudson [facility] CPT-95741 Level 3 Est. Patient 09:26:37 CDT Esvin PAULA [facility] CPT-51597 Level 3 Est. Patient 10:34:42 FOOT CASTER Esvin Hudson [facility] CPT-76365 Level 3 Est. Patient 10:45:47 FOOT CASTER Esvin Hudson [facility] CPT-64047 Level 3 Est. Patient 10:45:22 FOOT CASTER Esvin Hudson [facility] CPT-76294 Level 3 Est. Patient 14:18:30 FOOT CASTER Esvin Tristan [facility] CPT-01658 Level 3 Est. Patient 13:53:29 FOOT CASTER Esvin [place] [facility] CPT-17593 Level 3 Est. Patient 10:34:11 CDT Esvin [place] [facility] Procedures Code Procedure Name Date Entry Date Standard Description CPT-79265 Bone Density - XRAY USE ONLY 11:29:32 CDT CPT-45687 LS spine AP and Lat - XRAY USE ONLY 10:07:43 FOOT CASTER 10/26 CPT-12056 Venipuncture Draw Fee 09:51:16 FOOT CASTER CPT-28112 Smoking Cessation counseling 09:39:47 FOOT CASTER CPT-G0438 Initial Annual Wellness Exam 09:37:28 FOOT CASTER CPT-08158 Venipuncture Draw Fee 09:26:55 CDT CPT-61881 Venipuncture Draw Fee 11:55:52 CDT CPT-21272 Spec Collection and Handling Fee 09:16:37 CDT CPT-35821 Venipuncture Draw Fee 09:16:37 CDT
--- OUTSIDE RECORDS SUMMARY | 2018-02-26 14:57 | XMS REPORT | Clinical Summary ---
Author Author Admin, E Organization [employer] Address Unknown Phone Unavailable Allergies, Adverse Reactions, [...] R I 465.9 Inactive Wily Zhang Carlos DO Acute upper respiratory infections of unspecified [...] twice dialy for blood pressure METOPROLOL TARTRATE 85799833699 Active Wily Gonzalez DO Active CHANTIX 1 MG ORAL TABLET 1 twice a day VARENICLINE TARTRATE 89602738000 No Longer Active Wily Gonzalez DO Active RAUL-MAG 500-250 MG ORAL TABLET Take one by mouth daily CALCIUM -MAGNESIUM 06864712867 Active Wily Gonzalez DO Active FOSAMAX 70 MG ORAL TABLET 1 po qweek. Take 30min prior to first food/drink. Avoid lying down x 1 hour. ALENDRONATE SODIUM 93977778358 Active Laurie Latham LPN Active CALCIUM 600 MG ORAL TABLET 1 po q day CALCIUM 58387070088 Active Rose Bang Active TRIAMCINOLONE ACETONIDE 0.1 % EXTERNAL CREAM Apply to affected area 3 times daily for up to 2 weeks TRIAMCINOLONE ACETONIDE 68797116247 Active Wily Gonzalez DO Active HBRKWJC-VDVPYORFC-DXFD 167-83-8 MG ORAL TABLET 1 tab po daily [id number] 51941555878 No Longer Active Wily Gonzalez DO Active NYSTATIN 503733 UNIT/GM EXTERNAL CREAM apply to rash TID PRN 2015 NYSTATIN 12081484867 No Longer Active Wily Gonzalez DO Active POLY-IRON 150 150 MG ORAL CAPSULE 1 tab po bid POLYSACCHARIDE IRON COMPLEX 13451750853 No Longer Active Wily Gonzalez DO Active FLONASE ALLERGY RELIEF 50 MCG/ACT NASAL SUSPENSION 2 sprays each nostril every day FLUTICASONE PROPIONATE 63561539998 Active Wily Gonzalez DO Active CLEMASTINE FUMARATE 1.34 MG ORAL TABLET 1 tab PO BID CLEMASTINE FUMARATE 09616617920 No Longer Active Wily Gonzalez DO Active FLOMAX 0.4 MG ORAL CAPSULE 1 capsule in the evening for night time urination. TAMSULOSIN HCL 48844261918 No Longer Active Wily Gonzalez DO Active PROTONIX 40 MG ORAL TABLET DELAYED RELEASE 1 po daily PANTOPRAZOLE SODIUM 36863413584 Active Lisa Berkowitz Active HYDROXYZINE HCL 25 MG ORAL TABLET 1 two times a day as needed for anxiety HYDROXYZINE HCL 82914088934 No Longer Active Wily Gonzalez DO Active ANUSOL-HC 25 MG RECTAL SUPPOSITORY 1 rectally every 12 hours for irritation HYDROCORTISONE NAEL (RECTAL) 45571163622 No Longer Active Wily Gonzalez DO Active HYDROXYZINE HCL 25 MG ORAL TABLET Take one (1) tablet by mouth twice a day HYDROXYZINE HCL 15266638733 No Longer Active Wily Gonzalez DO Active ZIAC 2.5-6.25 MG ORAL TABLET 1 tablet daily for high blood pressure BISOPROLOL-HCTZ 04901579292 No Longer Active Wily Gonzalez DO Active ZIAC 2.5-6.25 MG ORAL TABLET 1 tablet every morning for high blood pressure BISOPROLOL-HCTZ 78726767138 No Longer Active Wily Gonzalez DO Active AMOXICILLIN 500 MG ORAL CAPSULE Take one (1) tablet by mouth three times a day AMOXICILLIN 58338864507 No Longer Active Wily Gonzalez DO Active MORPHINE SULFATE ER 100 MG ORAL TABLET EXTENDED RELEASE Take one (1) tablet by mouth twice a day MORPHINE SULFATE 57784488424 No Longer Active Wily Gonzalez DO Active MORPHINE SULFATE ER 100 MG ORAL CAPSULE EXTENDED RELEASE 24 HOUR 1 capsule twice daily for chronic pain MORPHINE SULFATE 07782885496 Active Wily Gonzalez DO Active CIALIS 10 MG ORAL TABLET 1 every 72 hours as needed TADALAFIL 96377860167 No Longer Active Esvin PAULA Active FLONASE 50 MCG/ACT NASAL SUSPENSION 2 SPRAY EACH NARE DAILY 05/08 FLUTICASONE PROPIONATE 37582280149 No Longer Active Esvin PAULA Active CYCLOBENZAPRINE HCL 10 MG ORAL TABLET Take one (1) tablet by mouth three times a day CYCLOBENZAPRINE HCL 50472442392 Active Rose Bang Active OPANA ER 40 MG ORAL TABLET ER 12 HOUR ABUSE-DETERRENT Take one (1) tablet by mouth twice a day OXYMORPHONE HCL 16568676498 No Longer Active Esvin PAULA Active PROAIR HFA 108 (90 Base) MCG/ACT INHALATION AEROSOL SOLUTION 2 puffs every four hours as needed ALBUTEROL SULFATE 29257680429 No Longer Active Esvin PAULA Active CLEARLAX ORAL POWDER 17gm q day prn constipation POLYETHYLENE GLYCOL 3350 07170450973 Active Wily Gonzalez DO Active MORPHINE SULFATE ER 100 MG ORAL CAPSULE EXTENDED RELEASE 24 HOUR Take one (1) tablet by mouth twice a day MORPHINE SULFATE 94783713819 No Longer Active Esvin PAULA Active FLEXERIL 10 MG TAB 1 tablet by mouth 3 times daily as needed CYCLOBENZAPRINE HCL 98885312623 No Longer Active Esvin PAULA Active CELEBREX 200 MG ORAL CAPSULE 1 tablet by mouth twice daily with meals 2012 CELECOXIB 97765115172 No Longer Active Esvin PAULA Active NEXIUM 40 MG ORAL CAPSULE DELAYED RELEASE 1 cap daily ESOMEPRAZOLE MAGNESIUM 27144740205 No Longer Active Esvin PAULA Active MOBIC 15 MG ORAL TABLET 1 tab daily MELOXICAM 16111852261 No Longer Active Esvin PAULA Active LISINOPRIL 20 MG ORAL TABLET Take 1 tablet by mouth daily LISINOPRIL 93854170382 No Longer Active Esvin PAULA Active DICLOFENAC SODIUM 50 MG ORAL TABLET DELAYED RELEASE 1 tablet by mouth four times daily DICLOFENAC SODIUM 12818923721 No Longer Active Paula Cooney RN Active VERAMYST 27.5 MCG/SPRAY NASAL SUSPENSION 2 spray each nare daily FLUTICASONE FUROATE 80217597154 No Longer Active Megan Vargas RN Active ENDOCET 10-325 MG ORAL TABLET Take one (1) tablet by mouth three times a day OXYCODONE-ACETAMINOPHEN 77935041294 Active Wily Gonzalez DO Active ALPRAZOLAM 2 MG ORAL TABLET Take one (1) tablet by mouth three times a day ALPRAZOLAM 91907183394 Active Wily Gonzalez DO Active NEXIUM 40 MG ORAL CAPSULE DELAYED RELEASE 1 cap by mouth daily ESOMEPRAZOLE MAGNESIUM 74729418925 No Longer Active Esvin PAULA Active ALPRAZOLAM 2 MG ORAL TABLET 1 tablet by mouth three times daily as needed ALPRAZOLAM 73731172899 No Longer Active Esvin PAULA Active HYDROXYZINE HCL 25 MG ORAL TABLET take 1 every 4-6 hours as needed HYDROXYZINE HCL 09863435509 No Longer Active Esvin PAULA Active ENDOCET 10-325 MG ORAL TABLET 1 by mouth twice a day OXYCODONE-ACETAMINOPHEN 23355872914 No Longer Active Esvin PAULA Active MS CONTIN 100 MG ORAL TABLET EXTENDED RELEASE 1 by mouth twice a day MORPHINE SULFATE 85799710297 No Longer Active Esvin PAULA Active SUDAFED 30 MG ORAL TABLET 1-2 every 4-6 hours as needed PSEUDOEPHEDRINE HCL 09243266370 Active Rose Bang Active VERAMYST 27.5 MCG/SPRAY NASAL SUSPENSION 2 spray each nare daily VERAMYST 27.5 MCG/SPRAY NASAL SUSPENSION FLUTICASONE FUROATE Inactive DICLOFENAC SODIUM 50 MG ORAL TABLET DELAYED RELEASE 1 tablet by mouth four times daily DICLOFENAC SODIUM 50 MG ORAL TABLET DELAYED RELEASE 252423 DICLOFENAC SODIUM Inactive LISINOPRIL 20 MG ORAL TABLET Take 1 tablet by mouth daily LISINOPRIL 20 MG ORAL TABLET 052359 LISINOPRIL Inactive MOBIC 15 MG ORAL TABLET 1 tab daily MOBIC 15 MG ORAL TABLET 644450 MELOXICAM Inactive NEXIUM 40 MG ORAL CAPSULE DELAYED RELEASE 1 cap daily NEXIUM 40 MG ORAL CAPSULE DELAYED RELEASE 298449 ESOMEPRAZOLE MAGNESIUM Inactive CELEBREX 200 MG ORAL CAPSULE 1 tablet by mouth twice daily with meals 2012 CELEBREX 200 MG ORAL CAPSULE 936871 CELECOXIB Inactive FLEXERIL 10 MG TAB 1 [...] DAILY 05/08 FLONASE 50 MCG/ACT NASAL SUSPENSION 8865170 FLUTICASONE PROPIONATE Inactive CIALIS 10 MG ORAL [...] a day AMOXICILLIN 500 MG ORAL CAPSULE 904030 AMOXICILLIN Inactive ZIAC 2.5-6.25 MG ORAL TABLET 1 tablet every morning for high blood pressure ZIAC 2.5-6.25 MG ORAL TABLET 317928 BISOPROLOL-HCTZ Inactive ZIAC 2.5-6.25 MG ORAL TABLET 1 tablet daily for high blood pressure ZIAC 2.5-6.25 MG ORAL TABLET 830889 BISOPROLOL-HCTZ Inactive HYDROXYZINE HCL 25 MG ORAL TABLET Take one (1) tablet by mouth twice a day HYDROXYZINE HCL 25 MG ORAL TABLET 440956 HYDROXYZINE HCL Inactive ANUSOL-HC 25 MG RECTAL SUPPOSITORY 1 rectally every 12 hours for irritation ANUSOL-HC 25 MG RECTAL SUPPOSITORY 5586697 HYDROCORTISONE NAEL (RECTAL) Inactive HYDROXYZINE HCL 25 MG ORAL TABLET 1 two times a day as needed for anxiety HYDROXYZINE HCL 25 MG ORAL TABLET 599365 HYDROXYZINE HCL Inactive FLOMAX 0.4 MG ORAL CAPSULE 1 capsule in the evening for night time urination. FLOMAX 0.4 MG ORAL CAPSULE 867380 TAMSULOSIN HCL Inactive CLEMASTINE FUMARATE 1.34 MG ORAL TABLET 1 tab PO BID CLEMASTINE FUMARATE 1.34 MG ORAL TABLET 249658 CLEMASTINE FUMARATE Inactive POLY-IRON 150 150 MG ORAL CAPSULE 1 tab po bid POLY-IRON 150 150 MG ORAL CAPSULE 451825 POLYSACCHARIDE IRON COMPLEX Inactive NYSTATIN 336934 UNIT/GM EXTERNAL CREAM apply to rash TID PRN 2015 NYSTATIN 754519 UNIT/GM EXTERNAL CREAM 188096 NYSTATIN Inactive PENGKJS-EMBMHSMEK-IHPE 167-83-8 MG ORAL TABLET 1 tab po daily KNMEVVI-RZZHKJPJJ-KSCZ 167-83-8 MG ORAL TABLET 32907559414 CALCIUM -MAGNESIUM-ZINC Inactive CHANTIX 1 MG ORAL TABLET 1 twice a day CHANTIX 1 MG ORAL TABLET VARENICLINE TARTRATE Inactive MS CONTIN 100 MG ORAL TABLET EXTENDED RELEASE 1 by mouth twice a day MS CONTIN 100 MG ORAL TABLET EXTENDED RELEASE MORPHINE SULFATE Inactive ENDOCET 10-325 MG ORAL TABLET 1 by mouth twice a day ENDOCET 10-325 MG ORAL TABLET 4018487 OXYCODONE-ACETAMINOPHEN Inactive HYDROXYZINE HCL 25 MG ORAL TABLET take 1 every 4-6 hours as needed HYDROXYZINE HCL 25 MG ORAL TABLET 256623 HYDROXYZINE HCL Inactive ALPRAZOLAM 2 MG ORAL TABLET 1 tablet by mouth three times daily as needed ALPRAZOLAM 2 MG ORAL TABLET 929281 ALPRAZOLAM Inactive NEXIUM 40 MG ORAL CAPSULE DELAYED RELEASE 1 cap by mouth daily NEXIUM 40 MG ORAL CAPSULE DELAYED RELEASE 792142 ESOMEPRAZOLE MAGNESIUM Inactive Advance Directives Directive Description [...] Measured Encounters Code Encounter Date Provider Facility CPT-51177 Level 4 Est. Patient 16:18:01 CDT Wily Gonzalez [facility] CPT-41558 Level 4 Est. Patient 16:17:36 CDT Wily Gonzalez [facility] CPT-85202 Level 4 Est. Patient 12:51:46 CDT Wily Gonzalez [facility] CPT-78816 Level 4 Est. Patient 10:10:03 CDT Wily Gonzalez [facility] CPT-43624 Level 3 Est. Patient 14:25:57 CDT Wily Gonzalez [facility] CPT-43410 Level 3 Est. Patient 09:51:37 [employer] MAINTE[employer]NCE MANAGER Wily Gonzalez [facility] CPT-04779 Level 3 Est. Patient 11:07:48 CDT Wily Gonzalez [facility] CPT-62303 Level 3 Est. Patient 11:24:24 CDT Wily Gonzalez [facility] CPT-26354 Level 3 Est. Patient 15:19:54 AIRCRAFT MAINTENANCE MANAGER Wily Gonzalez [facility] CPT-76785 Level 3 Est. Patient 10:04:45 CDT Wily Gonzalez [facility] CPT-71236 Level 3 Est. Patient 13:04:06 CDT Wily Gonzalez [facility] CPT-02993 Level 3 Est. Patient 12:23:04 CDT Wily Gonzalez [facility] CPT-62270 Level 3 Est. Patient 15:43:10 AIRCRAFT MAINTENANCE MANAGER Wily Gonzalez [facility] CPT-68796 Level 3 Est. Patient 16:10:54 CDT Wily Gonzalez [facility] CPT-21214 Level 3 Est. Patient 19:50:51 CDT Wily Gonzalez [facility] CPT-91628 Level 3 Est. Patient 12:02:30 AIRCRAFT MAINTENANCE MANAGER Wily Gonzalez [facility] CPT-56456 Level 3 Est. Patient 12:03:11 AIRCRAFT MAINTENANCE MANAGER Wily Gonzalez [facility] CPT-82947 Level 3 Est. Patient 12:01:41 AIRCRAFT MAINTENANCE MANAGER Wily Gonzalez [facility] CPT-15409 Level 3 Est. Patient 11:51:24 AIRCRAFT MAINTENANCE MANAGER Wily Gonzalez [facility] CPT-53602 Level 3 Est. Patient 11:58:20 AIRCRAFT MAINTENANCE MANAGER Wily Gonzalez [facility] CPT-99869 Level 3 Est. Patient 08:31:36 AIRCRAFT MAINTENANCE MANAGER Wily Gonzalez [facility] CPT-61617 Level 3 Est. Patient 21:57:36 CDT Wily Gonzalez [facility] CPT-07749 Level 3 Est. Patient 10:49:58 CDT Esvin Hudson [facility] CPT-54149 Level 3 Est. Patient 11:22:52 CDT Esvin PAULA [facility] CPT-74800 Level 3 Est. Patient 13:49:41 CDT Esvin PAULA [facility] CPT-47234 Level 3 Est. Patient 11:54:53 CDT Esvin PAULA [facility] CPT-58715 Level 3 Est. Patient 09:07:11 CDT Esvin PAULA [facility] CPT-14523 Level 3 Est. Patient 13:52:47 CDT Esvin PAULA [facility] CPT-96335 Level 3 Est. Patient 11:26:46 CDT Esvin Hudson [facility] CPT-24824 Level 3 Est. Patient 10:25:00 AIRCRAFT MAINTENANCE MANAGER Esvin Hudson [facility] CPT-37436 Level 3 Est. Patient 11:39:11 AIRCRAFT MAINTENANCE MANAGER Esvin PAULA [facility] CPT-38094 Level 3 Est. Patient 13:24:24 AIRCRAFT MAINTENANCE MANAGER Evsin PAULA [facility] CPT-99937 Level 3 Est. Patient 10:26:13 AIRCRAFT MAINTENANCE MANAGER Esvin PAULA [facility] CPT-62274 Level 3 Est. Patient 10:21:21 CDT Esvin PAULA [facility] CPT-76162 Level 3 Est. Patient 10:26:30 CDT Esvin PAULA [facility] CPT-33219 Level 3 Est. Patient 09:16:37 CDT Esvin Hudson [facility]-14053 Level 3 Est. Patient 09:06:58 CDT Esvin Hudson CH[facility] CPT-48967 Level 3 Est. Patient 10:05:29 CDT Esvin Hudson CH[facility] CPT-52556 Level 3 Est. Patient 10:38:45 CDT Esvin Hudson [facility] CPT-02176 Level 3 Est. Patient 10:09:45 CDT Esvin Hudson [facility] CPT-53980 Level 3 Est. Patient 09:26:37 CDT Esvin Tristan [facility] CPT-50249 Level 3 Est. Patient 10:34:42 AIRCRAFT MAINTENANCE MANAGER Esvin Hudson [facility] CPT-25819 Level 3 Est. Patient 10:45:47 AIRCRAFT MAINTENANCE MANAGER Esvin Tristan [facility] CPT-63676 Level 3 Est. Patient 10:45:22 AIRCRAFT MAINTENANCE MANAGER Esvin [place] [facility] CPT-96274 Level 3 Est. Patient 14:18:30 AIRCRAFT MAINTENANCE MANAGER Esvin Hudson [facility] CPT-91773 Level 3 Est. Patient 13:53:29 AIRCRAFT MAINTENANCE MANAGER Esvin Tristan [facility] CPT-78348 Level 3 Est. Patient 10:34:11 CDT Esvin Tristan [facility] Procedures Code Procedure Name Date Entry Date Standard Description CPT-32082 Smoking Cessation counseling 10:10:03 CDT CPT-82201 Smoking Cessation counseling 14:25:57 CDT CPT-25705 Bone Density - XRAY USE ONLY 11:29:32 CDT CPT-08715 LS spine AP and Lat - XRAY USE ONLY 10:07:43 [employer]CRAFT MAINTENANCE MANAGER 10/26 CPT-86591 Venipuncture Draw Fee 09:51:16 AIRCRAFT MAINTENANCE MANAGER CPT-34588 Smoking Cessation counseling 09:39:47 AIRCRAFT MAINTENANCE MANAGER CPT-G0438 Initial Annual Wellness Exam 09:37:28 AIRCRAFT MAINTENANCE MANAGER CPT-79613 Venipuncture Draw Fee 09:26:55 CDT CPT-51435 Venipuncture Draw Fee 11:55:52 CDT CPT-05216 Spec Collection and Handling Fee 09:16:37 CDT CPT-14706 Venipuncture Draw Fee 09:16:37 CDT
--- OUTSIDE RECORDS SUMMARY | 2018-02-26 14:59 | XMS REPORT | Clinical Summary ---
Author Author Admin, ERICKA Organization [facility] Address Unknown Phone Unavailable Allergies, Adverse [...] Dermatophytosis of the body Hemorrhoids 455.6 Active Wiyl Gonazlez DO Unspecified hemorrhoids without mention of complication [...] TABS 1 tab PO BID CLEMASTINE FUMARATE 45028828605 No Longer Active Wily Gonzalez DO Active FLOMAX 0.4 MG CAPS 1 capsule in the evening for night time urination. TAMSULOSIN HCL 91892614692 No Longer Active Wily Gonzalez DO Active PROTONIX 40 MG TBEC 1 po daily PANTOPRAZOLE SODIUM 51093966788 Active Wily Gonzalez DO Active HYDROXYZINE HCL 25 MG TAB 1 two times a day as needed for anxiety HYDROXYZINE HCL 21817480742 No Longer Active Wily Gonzalez DO Active ANUSOL-HC 25 MG SUPPOSITORY 1 rectally every 12 hours for irritation HYDROCORTISONE NAEL (RECTAL) 99068962191 No Longer Active Wily Gonzalez DO Active HYDROXYZINE HCL 25 MG TABS Take one (1) tablet by mouth twice a day HYDROXYZINE HCL 84500954825 No Longer Active Wily Gonzalez DO Active ZIAC 2.5-6.25 MG TAB 1 tablet daily for high blood pressure 10/27 BISOPROLOL-HCTZ 11296574525 No Longer Active Wily Gonzalez DO Active [id number] 167-83-8 MG TABS 1 tab po daily CALCIUM -MAGNESIUM-ZINC 85959830748 Active Wily Gonzalez DO Active NYSTATIN 756856 UNIT/GM CREA apply to rash TID PRN NYSTATIN 39879582318 Active Wily Gonzalez DO Active ZIAC 2.5-6.25 MG TAB 1 tablet every morning for high blood pressure BISOPROLOL-HCTZ 42787982213 No Longer Active Wily Gonzalez DO Active AMOXICILLIN 500 MG CAPS Take one (1) tablet by mouth three times a day 05/05 AMOXICILLIN 28961267434 No Longer Active Wily Gonzalez DO Active MORPHINE SULFATE ER 100 MG CR-TABS Take one (1) tablet by mouth twice a day MORPHINE SULFATE 55928474757 No Longer Active Wily Gonzalez DO Active MORPHINE SULFATE ER 100 MG [id number] 1 capsule twice daily for chronic pain MORPHINE SULFATE 72605235489 Active Wily Gonzalez DO Active FLONASE 50 MCG/ACT SUSP 2 sprays each nare q day FLUTICASONE PROPIONATE 37053414443 Active Rudy Cheung MD Active CIALIS 10 MG TABS 1 every 72 hours as needed TADALAFIL 62816663068 No Longer Active Esvin PAULA Active FLONASE 50 MCG/ACT SUSP 2 SPRAY EACH NARE DAILY FLUTICASONE PROPIONATE 37515302774 No Longer Active Esvin PAULA Active CYCLOBENZAPRINE HCL 10 MG TABS Take one (1) tablet by mouth three times a day CYCLOBENZAPRINE HCL 80093224960 Active Wily Gonzalez DO Active OPANA ER (CRUSH RESISTANT) 40 MG [id number] Take one (1) tablet by mouth twice a day OXYMORPHONE HCL 07256733751 No Longer Active Esvin PAULA Active POLY-IRON 150 150 MG CAPS 1 tab po bid POLYSACCHARIDE IRON COMPLEX 31805388045 Active Esvin PAULA Active PROAIR HFA 108 (90 BASE) MCG/ACT AERS 2 puffs every four hours as needed ALBUTEROL SULFATE 63923669698 No Longer Active Esvin PAULA Active CLEARLAX POWD 17gm q day prn constipation POLYETHYLENE GLYCOL 3350 94412399297 Active Jonas PAULA Active MORPHINE SULFATE ER 100 MG [id number] Take one (1) tablet by mouth twice a day MORPHINE SULFATE 45396312615 No Longer Active Esvin PAULA Active FLEXERIL 10 MG TAB 1 tablet by mouth 3 times daily as needed CYCLOBENZAPRINE HCL 00192884946 No Longer Active Esvin PAULA Active CELEBREX 200 MG CAPS 1 tablet by mouth twice daily with meals CELECOXIB 55984659262 No Longer Active Esvin PAULA Active NEXIUM 40 MG CPDR 1 cap daily ESOMEPRAZOLE MAGNESIUM 22934601240 No Longer Active Esvin PAULA Active MOBIC 15 MG TABS 1 tab daily MELOXICAM 99166003592 No Longer Active Esvin PAULA Active LISINOPRIL 20 MG TABS Take 1 tablet by mouth daily LISINOPRIL 25826341463 No Longer Active Esvin PAULA Active DICLOFENAC SODIUM 50 MG TBEC 1 tablet by mouth four times daily DICLOFENAC SODIUM 33775060229 No Longer Active Paula Cooney RN Active VERAMYST 27.5 MCG/SPRAY SUSP 2 spray each nare daily FLUTICASONE FUROATE 45231707280 No Longer Active Megan Vargas RN Active ENDOCET 10-325 MG TABS Take one (1) tablet by mouth three times a day OXYCODONE-ACETAMINOPHEN 59087346685 Active Wily Gonzalez DO Active ALPRAZOLAM 2 MG TABS Take one (1) tablet by mouth three times a day ALPRAZOLAM 35865786677 Active Wily Gonzalez DO Active NEXIUM 40 MG CPDR 1 cap by mouth daily ESOMEPRAZOLE MAGNESIUM 58328148032 No Longer Active Esvin PAULA Active ALPRAZOLAM 2 MG TABS 1 tablet by mouth three times daily as needed ALPRAZOLAM 63416821767 No Longer Active Esvin PAULA Active HYDROXYZINE HCL 25 MG TAB take 1 every 4-6 hours as needed 07/01 HYDROXYZINE HCL 44792421649 No Longer Active Esvin PAULA Active ENDOCET 10-325 MG TABS 1 by mouth twice a day OXYCODONE-ACETAMINOPHEN 29359444419 No Longer Active Esvin PAULA Active MS CONTIN 100 MG [id number] 1 by mouth twice a day MORPHINE SULFATE 41935001527 No Longer Active Esvin PAULA Active SUDAFED 30 MG TAB 1-2 every 4-6 hours as needed PSEUDOEPHEDRINE HCL 18918549628 Active Wily Gonzalez DO Active VERAMYST 27.5 MCG/SPRAY SUSP 2 spray each nare daily VERAMYST 27.5 MCG/SPRAY SUSP FLUTICASONE FUROATE Inactive DICLOFENAC SODIUM 50 MG TBEC 1 tablet by mouth four times daily DICLOFENAC SODIUM 50 MG TBEC 893692 DICLOFENAC SODIUM Inactive LISINOPRIL 20 MG TABS Take 1 tablet by mouth daily LISINOPRIL 20 MG TABS 478122 LISINOPRIL Inactive MOBIC 15 MG TABS 1 tab daily MOBIC 15 MG TABS 722783 MELOXICAM Inactive NEXIUM 40 MG CPDR 1 cap daily NEXIUM 40 MG CPDR ESOMEPRAZOLE MAGNESIUM Inactive CELEBREX 200 MG CAPS 1 tablet by mouth twice daily with meals CELEBREX 200 MG CAPS 117372 CELECOXIB Inactive FLEXERIL 10 MG TAB 1 tablet by mouth 3 times daily as needed FLEXERIL 10 MG TAB CYCLOBENZAPRINE HCL Inactive PROAIR HFA 108 (90 BASE) MCG/ACT AERS 2 puffs every four hours as needed PROAIR HFA 108 (90 BASE) MCG/ACT AERS ALBUTEROL SULFATE Inactive FLONASE 50 MCG/ACT SUSP 2 SPRAY EACH NARE DAILY FLONASE 50 MCG/ACT SUSP 521056 FLUTICASONE PROPIONATE Inactive CIALIS 10 MG TABS 1 every 72 hours as needed CIALIS 10 MG TABS TADALAFIL Inactive MORPHINE SULFATE ER 100 MG CR-TABS Take one (1) tablet by mouth twice a day MORPHINE SULFATE ER 100 MG CR-TABS MORPHINE SULFATE Inactive AMOXICILLIN 500 MG CAPS Take one (1) tablet by mouth three times a day 05/05 AMOXICILLIN 500 MG CAPS 348482 AMOXICILLIN Inactive ZIAC 2.5-6.25 MG TAB 1 tablet every morning for high blood pressure ZIAC 2.5-6.25 MG TAB 900268 BISOPROLOL-HCTZ Inactive ZIAC 2.5-6.25 MG TAB 1 tablet daily for high blood pressure 10/27 ZIAC 2.5-6.25 MG TAB 653879 BISOPROLOL-HCTZ Inactive HYDROXYZINE HCL 25 MG TABS Take one (1) tablet by mouth twice a day HYDROXYZINE HCL 25 MG TABS 899858 HYDROXYZINE HCL Inactive ANUSOL-HC 25 MG SUPPOSITORY 1 rectally every 12 hours for irritation ANUSOL-HC 25 MG SUPPOSITORY 9991011 HYDROCORTISONE NAEL (RECTAL ) Inactive HYDROXYZINE HCL 25 MG TAB 1 two times a day as needed for anxiety HYDROXYZINE HCL 25 MG TAB 270914 HYDROXYZINE HCL Inactive FLOMAX 0.4 MG CAPS 1 capsule in the evening for night time urination. FLOMAX 0.4 MG CAPS 027718 TAMSULOSIN HCL Inactive CLEMASTINE FUMARATE 1.34 MG ORAL TABS 1 tab PO BID CLEMASTINE FUMARATE 1.34 MG ORAL TABS 179675 CLEMASTINE FUMARATE Inactive MS CONTIN 100 MG [id number] 1 by mouth twice a day MS CONTIN 100 MG [id number] MORPHINE SULFATE Inactive ENDOCET 10-325 MG TABS 1 by mouth twice a day ENDOCET 10-325 MG TABS 7010305 OXYCODONE-ACETAMINOPHEN Inactive HYDROXYZINE HCL 25 MG TAB take 1 every 4-6 hours as needed 07/01 HYDROXYZINE HCL 25 MG TAB 035709 HYDROXYZINE HCL Inactive ALPRAZOLAM 2 MG TABS 1 tablet by mouth three times daily as needed ALPRAZOLAM 2 MG TABS 011985 ALPRAZOLAM Inactive NEXIUM 40 MG CPDR 1 [...] ... - Chemistry sodium, serum 138 mmol/L 035-173 0582/04/13 potassium, serum 4.9 mmol/L 3.5-5.2 chloride, serum [...] Hormone (L), ... - Hematology mean corpuscular volume, RBC 92 fL 80-97 hematocrit, blood 36.7 % 41.0-53.0 hemoglobin, blood 12.5 g/dL 13.5-17.5 erythrocyte (RBC) count 3.99 10^6/MM^3 10*6/mm3 4.69-6.13 leukocyte count, blood 6.1 10^3/MM^3 10*3/mm3 4.6-10.2 mean corpuscular hemoglobin, RBC 31.2 pg 27.0-31.2 mean corpuscular hemoglobin concentration, RBC 34.0 G/DL % 31.8- 35.4 red blood cell distribution width 14.9 % 11.6-14.8 platelet count 227 10^3/MM^3 10*3/mm3 142-424 Encounters Code Encounter Date Provider Facility CPT-73613 Level 3 Est. Patient 12:23:04 CDT Wily Gonzalez [facility] CPT-61291 Level 3 Est. Patient 15:43:10 [employer] Wily Gonzalez [facility] CPT-88058 Level 3 Est. Patient 16:10:54 CDT Wily Vicente Gonzalez [facility] CPT-23433 Level 3 Est. Patient 19:50:51 CDT Wily Vicente Gonzalez [facility] CPT-29080 Level 3 Est. Patient 12:02:30 [employer] Wily Gonzalez [facility] CPT-76428 Level 3 Est. Patient 12:03:11 [employer] Wily Gonzalez [facility] CPT-57910 Level 3 Est. Patient 12:01:41 [employer] Wily Gonzalez [facility] CPT-07024 Level 3 Est. Patient 11:51:24 [employer] Wily Gonzalez [facility] CPT-01976 Level 3 Est. Patient 11:58:20 [employer] Wily Gonzalez [facility] CPT-50379 Level 3 Est. Patient 08:31:36 [employer] Wily Vicente Gonzalez [facility] CPT-29017 Level 3 Est. Patient 21:57:36 CDT Wily Gonzalez [facility] CPT-48813 Level 3 Est. Patient 10:49:58 CDT Esvin PAULA [facility] CPT-81472 Level 3 Est. Patient 11:22:52 CDT Esvin PAULA [facility] CPT-51394 Level 3 Est. Patient 13:49:41 CDT Esvin Tristan PA [facility] CPT-66214 Level 3 Est. Patient 11:54:53 CDT Esvin Hudson CHAI [facility] CPT-06465 Level 3 Est. Patient 09:07:11 CDT Esvin Marmarth PA [facility] CPT-56662 Level 3 Est. Patient 13:52:47 CDT Esvin Hudson CHAI [facility] CPT-17784 Level 3 Est. Patient 11:26:46 CDT Esvin Marmarth PA [facility] CPT-16562 Level 3 Est. Patient 10:25:00 [employer] Esvin Marmarth PA [facility] CPT-47522 Level 3 Est. Patient 11:39:11 [employer] Esvin Tristan PA [facility] CPT-82037 Level 3 Est. Patient 13:24:24 [employer] Esvin Tristan CHAI [facility] CPT-54529 Level 3 Est. Patient 10:26:13 [employer] Esvin Marmarth PA [facility]-07406 Level 3 Est. Patient 10:21:21 CDT Esvin Marmarth PA [facility] CPT-44029 Level 3 Est. Patient 10:26:30 CDT Esvin Marmarth PA [facility] CPT-23995 Level 3 Est. Patient 09:16:37 CDT Esvin Marmarth PA [facility]-47998 Level 3 Est. Patient 09:06:58 CDT Esvin Marmarth PA [facility]-00241 Level 3 Est. Patient 10:05:29 CDT Esvin Tristan PA [facility] CPT-50054 Level 3 Est. Patient 10:38:45 CDT Esvin Tristan PA [facility] CPT-73466 Level 3 Est. Patient 10:09:45 CDT Esvin Tristan CHAI [facility] CPT-62142 Level 3 Est. Patient 09:26:37 CDT Esvin Tristan CHAI [facility] CPT-16440 Level 3 Est. Patient 10:34:42 [employer] Esvin Hudson [facility] CPT-46562 Level 3 Est. Patient 10:45:47 [employer] Esvin Hudson [facility] CPT-75642 Level 3 Est. Patient 10:45:22 [employer] Esvin Hudson [facility] CPT-93318 Level 3 Est. Patient 14:18:30 [employer] Esvin Marmarth [facility] CPT-46048 Level 3 Est. Patient 13:53:29 [employer] Esvin Hudson [facility] CPT-31938 Level 3 Est. Patient 10:34:11 CDT Esvin Marmarth [facility] Procedures Code Procedure Name Date Entry Date Standard Description CPT-19047 Venipuncture Draw Fee 09:26:55 CDT CPT-37783 Venipuncture Draw Fee 11:55:52 CDT CPT-23017 Spec Collection and Handling Fee 09:16:37 CDT CPT-22109 Venipuncture Draw Fee 09:16:37 CDT
--- OUTSIDE RECORDS SUMMARY | 2018-02-26 15:01 | XMS REPORT | Clinical Summary ---
Author Author Admin, ERICKA Organization [facility] Address Unknown Phone Unavailable Allergies, Adverse Reactions, Alerts Allergy Name Reaction Description Start Date Severity Status Provider NEURONTIN makes him paranoid Critical Active Wily Gonzalez DO LIDODERM preload Critical Active Paual Cooney RN BACTRIM preload Critical Active Paula [...] TABS 1 tab PO BID CLEMASTINE FUMARATE 77013516991 No Longer Active Wily Gonzalez DO Active FLOMAX 0.4 MG CAPS 1 capsule in the evening for night time urination. TAMSULOSIN HCL 67343227201 No Longer Active Wily Gonzalez DO Active PROTONIX 40 MG TBEC 1 po daily PANTOPRAZOLE SODIUM 04449423255 Active Wily Gonzalez DO Active HYDROXYZINE HCL 25 MG TAB 1 two times a day as needed for anxiety HYDROXYZINE HCL 44150971538 No Longer Active Wily Gonzalez DO Active ANUSOL-HC 25 MG SUPPOSITORY 1 rectally every 12 hours for irritation HYDROCORTISONE NAEL (RECTAL) 00967035717 No Longer Active Wily Gonzalez DO Active HYDROXYZINE HCL 25 MG TABS Take one (1) tablet by mouth twice a day HYDROXYZINE HCL 39852995707 No Longer Active Wily Gonzalez DO Active ZIAC 2.5-6.25 MG TAB 1 tablet daily for high blood pressure 10/27 BISOPROLOL-HCTZ 17599719884 No Longer Active Wily Gonzalez DO Active [id number] 167-83-8 MG TABS 1 tab po daily CALCIUM -MAGNESIUM-ZINC 20947786660 Active Wily Gonzalez DO Active NYSTATIN 042266 UNIT/GM CREA apply to rash TID PRN NYSTATIN 96465775390 Active Wily Gonzalez DO Active ZIAC 2.5-6.25 MG TAB 1 tablet every morning for high blood pressure BISOPROLOL-HCTZ 54417736617 No Longer Active Wily Gonzalez DO Active AMOXICILLIN 500 MG CAPS Take one (1) tablet by mouth three times a day 05/05 AMOXICILLIN 01069329611 No Longer Active Wily Gonzalez DO Active MORPHINE SULFATE ER 100 MG CR-TABS Take one (1) tablet by mouth twice a day MORPHINE SULFATE 13343590495 No Longer Active Wily Gonzalez DO Active MORPHINE SULFATE ER 100 MG [id number] 1 capsule twice daily for chronic pain MORPHINE SULFATE 86108860265 Active Wily Gonzalez DO Active FLONASE 50 MCG/ACT SUSP 2 sprays each nare q day FLUTICASONE PROPIONATE 62265363396 Active Rudy Cheung MD Active CIALIS 10 MG TABS 1 every 72 hours as needed TADALAFIL 79876842241 No Longer Active Esvin PAULA Active FLONASE 50 MCG/ACT SUSP 2 SPRAY EACH NARE DAILY FLUTICASONE PROPIONATE 35841678324 No Longer Active Esvin PAULA Active CYCLOBENZAPRINE HCL 10 MG TABS Take one (1) tablet by mouth three times a day CYCLOBENZAPRINE HCL 50639199250 Active Wily Gonzalez DO Active OPANA ER (CRUSH RESISTANT) 40 MG SO35T-FSM Take one (1) tablet by mouth twice a day OXYMORPHONE HCL 54924211013 No Longer Active Esvin PAULA Active POLY-IRON 150 150 MG CAPS 1 tab po bid POLYSACCHARIDE IRON COMPLEX 18050588695 Active Esvin PAULA Active PROAIR HFA 108 (90 BASE) MCG/ACT AERS 2 puffs every four hours as needed ALBUTEROL SULFATE 30590035731 No Longer Active Esvin PAULA Active CLEARLAX POWD 17gm q day prn constipation POLYETHYLENE GLYCOL 3350 29666996482 Active Jonas PAULA Active MORPHINE SULFATE ER 100 MG [id number] Take one (1) tablet by mouth twice a day MORPHINE SULFATE 94260991256 No Longer Active Esvin PAULA Active FLEXERIL 10 MG TAB 1 tablet by mouth 3 times daily as needed CYCLOBENZAPRINE HCL 80625411715 No Longer Active Esvin PAULA Active CELEBREX 200 MG CAPS 1 tablet by mouth twice daily with meals CELECOXIB 82405396285 No Longer Active Esvin PAULA Active NEXIUM 40 MG CPDR 1 cap daily ESOMEPRAZOLE MAGNESIUM 93402298163 No Longer Active Esvin PAULA Active MOBIC 15 MG TABS 1 tab daily MELOXICAM 44389687957 No Longer Active Esvin PAULA Active LISINOPRIL 20 MG TABS Take 1 tablet by mouth daily LISINOPRIL 84912241571 No Longer Active Esvin PAULA Active DICLOFENAC SODIUM 50 MG TBEC 1 tablet by mouth four times daily DICLOFENAC SODIUM 03462536146 No Longer Active Paula Cooney RN Active VERAMYST 27.5 MCG/SPRAY SUSP 2 spray each nare daily FLUTICASONE FUROATE 63131949464 No Longer Active Megan Vargas RN Active ENDOCET 10-325 MG TABS Take one (1) tablet by mouth three times a day OXYCODONE-ACETAMINOPHEN 03136661464 Active Wily Gonzalez DO Active ALPRAZOLAM 2 MG TABS Take one (1) tablet by mouth three times a day ALPRAZOLAM 50501400044 Active Wily Gonzalez DO Active NEXIUM 40 MG CPDR 1 cap by mouth daily ESOMEPRAZOLE MAGNESIUM 98357806004 No Longer Active Esvin PAULA Active ALPRAZOLAM 2 MG TABS 1 tablet by mouth three times daily as needed ALPRAZOLAM 95888752100 No Longer Active Esvin PAULA Active HYDROXYZINE HCL 25 MG TAB take 1 every 4-6 hours as needed 07/01 HYDROXYZINE HCL 89765092939 No Longer Active Esvin PAULA Active ENDOCET 10-325 MG TABS 1 by mouth twice a day OXYCODONE-ACETAMINOPHEN 51921351067 No Longer Active Esvin PAULA Active MS CONTIN 100 MG [id number] 1 by mouth twice a day MORPHINE SULFATE 22762144833 No Longer Active Esvin PAULA Active SUDAFED 30 MG TAB 1-2 every 4-6 hours as needed PSEUDOEPHEDRINE HCL 74819028278 Active Wily Gonzalez DO Active VERAMYST 27.5 MCG/SPRAY SUSP 2 spray each nare daily VERAMYST 27.5 MCG/SPRAY SUSP FLUTICASONE FUROATE Inactive DICLOFENAC SODIUM 50 MG TBEC 1 tablet by mouth four times daily DICLOFENAC SODIUM 50 MG TBEC 840785 DICLOFENAC SODIUM Inactive LISINOPRIL 20 MG TABS Take 1 tablet by mouth daily LISINOPRIL 20 MG TABS 847381 LISINOPRIL Inactive MOBIC 15 MG TABS 1 tab daily MOBIC 15 MG TABS 609528 MELOXICAM Inactive NEXIUM 40 MG CPDR 1 cap daily NEXIUM 40 MG CPDR ESOMEPRAZOLE MAGNESIUM Inactive CELEBREX 200 MG CAPS 1 tablet by mouth twice daily with meals CELEBREX 200 MG CAPS 115837 CELECOXIB Inactive FLEXERIL 10 MG TAB 1 tablet by mouth 3 times daily as needed FLEXERIL 10 MG TAB CYCLOBENZAPRINE HCL Inactive PROAIR HFA 108 (90 BASE) MCG/ACT AERS 2 puffs every four hours as needed PROAIR HFA 108 (90 BASE) MCG/ACT AERS ALBUTEROL SULFATE Inactive FLONASE 50 MCG/ACT SUSP 2 SPRAY EACH NARE DAILY FLONASE 50 MCG/ACT SUSP 231169 FLUTICASONE PROPIONATE Inactive CIALIS 10 MG TABS 1 every 72 hours as needed CIALIS 10 MG TABS TADALAFIL Inactive MORPHINE SULFATE ER 100 MG CR-TABS Take one (1) tablet by mouth twice a day MORPHINE SULFATE ER 100 MG CR-TABS MORPHINE SULFATE Inactive AMOXICILLIN 500 MG CAPS Take one (1) tablet by mouth three times a day 05/05 AMOXICILLIN 500 MG CAPS 307880 AMOXICILLIN Inactive ZIAC 2.5-6.25 MG TAB 1 tablet every morning for high blood pressure ZIAC 2.5-6.25 MG TAB 868883 BISOPROLOL-HCTZ Inactive ZIAC 2.5-6.25 MG TAB 1 tablet daily for high blood pressure 10/27 ZIAC 2.5-6.25 MG TAB 249305 BISOPROLOL-HCTZ Inactive HYDROXYZINE HCL 25 MG TABS Take one (1) tablet by mouth twice a day HYDROXYZINE HCL 25 MG TABS 266202 HYDROXYZINE HCL Inactive ANUSOL-HC 25 MG SUPPOSITORY 1 rectally every 12 hours for irritation ANUSOL-HC 25 MG SUPPOSITORY 3036157 HYDROCORTISONE NAEL (RECTAL ) Inactive HYDROXYZINE HCL 25 MG TAB 1 two times a day as needed for anxiety HYDROXYZINE HCL 25 MG TAB 974522 HYDROXYZINE HCL Inactive FLOMAX 0.4 MG CAPS 1 capsule in the evening for night time urination. FLOMAX 0.4 MG CAPS 581244 TAMSULOSIN HCL Inactive CLEMASTINE FUMARATE 1.34 MG ORAL TABS 1 tab PO BID CLEMASTINE FUMARATE 1.34 MG ORAL TABS 800129 CLEMASTINE FUMARATE Inactive MS CONTIN 100 MG [id number] 1 by mouth twice a day MS CONTIN 100 MG [id number] MORPHINE SULFATE Inactive ENDOCET 10-325 MG TABS 1 by mouth twice a day ENDOCET 10-325 MG TABS 0947424 OXYCODONE-ACETAMINOPHEN Inactive HYDROXYZINE HCL 25 MG TAB take 1 every 4-6 hours as needed 07/01 HYDROXYZINE HCL 25 MG TAB 462504 HYDROXYZINE HCL Inactive ALPRAZOLAM 2 MG TABS 1 tablet by mouth three times daily as needed ALPRAZOLAM 2 MG TABS 462569 ALPRAZOLAM Inactive NEXIUM 40 MG CPDR 1 [...] ... - Chemistry sodium, serum 138 mmol/L 966-586 7047/04/13 potassium, serum 4.9 mmol/L 3.5-5.2 chloride, serum [...] 142-424 Encounters Code Encounter Date Provider Facility CPT-32364 Level 3 Est. Patient 12:23:04 CDT Wily Gonzalez [facility] CPT-36346 Level 3 Est. Patient 15:43:10 GI TECHNICIAN Wily Gonzalez [facility] CPT-98190 Level 3 Est. Patient 16:10:54 CDT Wily Gonzalez [facility] CPT-41113 Level 3 Est. Patient 19:50:51 CDT Wily Gonzalez [facility] CPT-29965 Level 3 Est. Patient 12:02:30 GI TECHNICIAN Wily Gonzalez [facility] CPT-56542 Level 3 Est. Patient 12:03:11 GI TECHNICIAN Wily Gonzalez [facility] CPT-90771 Level 3 Est. Patient 12:01:41 GI TECHNICIAN Wily Gonzalez [facility] CPT-42804 Level 3 Est. Patient 11:51:24 GI TECHNICIAN Wily Gonzalez [facility] CPT-64150 Level 3 Est. Patient 11:58:20 GI TECHNICIAN Wily Gonzalez [facility] CPT-03750 Level 3 Est. Patient 08:31:36 GI TECHNICIAN Wily Gonzalez [facility] CPT-49844 Level 3 Est. Patient 21:57:36 CDT Wily Vicente Gonzalez [facility] CPT-24941 Level 3 Est. Patient 10:49:58 CDT Esvin PAULA [facility] CPT-88584 Level 3 Est. Patient 11:22:52 CDT Esvin PAULA [facility] CPT-73157 Level 3 Est. Patient 13:49:41 CDT Esvin PAULA [facility] CPT-57059 Level 3 Est. Patient 11:54:53 CDT Esvin PAULA [facility] CPT-51707 Level 3 Est. Patient 09:07:11 CDT Esvin PAULA [facility] CPT-48820 Level 3 Est. Patient 13:52:47 CDT Esvin PAULA [facility] CPT-13129 Level 3 Est. Patient 11:26:46 CDT Esvin PAULA [facility] CPT-98784 Level 3 Est. Patient 10:25:00 GI TECHNICIAN Esvin PAULA [facility] CPT-97862 Level 3 Est. Patient 11:39:11 GI TECHNICIAN Esvin PAULA [facility] CPT-51609 Level 3 Est. Patient 13:24:24 GI TECHNICIAN Esvin PAULA [facility] CPT-90174 Level 3 Est. Patient 10:26:13 GI TECHNICIAN Esvin Hudson [facility] CPT-26555 Level 3 Est. Patient 10:21:21 CDT Esvin PAULA [facility] CPT-35737 Level 3 Est. Patient 10:26:30 CDT Esvin PAULA [facility] CPT-33551 Level 3 Est. Patient 09:16:37 CDT Esvin PAULA [facility]-77598 Level 3 Est. Patient 09:06:58 CDT Esvin PAULA [facility] CPT-59371 Level 3 Est. Patient 10:05:29 CDT Esvin PAULA [facility] CPT-73149 Level 3 Est. Patient 10:38:45 CDT Esvin PAULA [facility] CPT-74607 Level 3 Est. Patient 10:09:45 CDT Esvin Whiteland PA [facility] CPT-50441 Level 3 Est. Patient 09:26:37 CDT Esvin Tristan [facility] CPT-79808 Level 3 Est. Patient 10:34:42 GI TECHNICIAN Esvin Tristan [facility] CPT-22487 Level 3 Est. Patient 10:45:47 GI TECHNICIAN Esvin Tristan [facility] CPT-23841 Level 3 Est. Patient 10:45:22 GI TECHNICIAN Esvin Whiteland [facility] CPT-62426 Level 3 Est. Patient 14:18:30 GI TECHNICIAN Esvin Tristan [facility] CPT-28534 Level 3 Est. Patient 13:53:29 GI TECHNICIAN Esvin Tristan [facility] CPT-47562 Level 3 Est. Patient 10:34:11 CDT Esvin Whiteland [facility] Procedures Code Procedure Name Date Entry Date Standard Description CPT-04003 Venipuncture Draw Fee 09:26:55 CDT CPT-82618 Venipuncture Draw Fee 11:55:52 CDT CPT-67901 Spec Collection and Handling Fee 09:16:37 CDT CPT-46487 Venipuncture Draw Fee 09:16:37 CDT
--- OUTSIDE RECORDS SUMMARY | 2018-02-26 15:03 | XMS REPORT | Clinical Summary ---
Author Author Admin, E Organization [employer] Address Unknown Phone Unavailable Allergies, Adverse Reactions, [...] Date Generic Name [facility] Status Provider Patient Instruction CHANTIX 1 MG TABS 1 twice a day VARENICLINE TARTRATE 02470190129 No Longer Active Wily Gonzalez DO Active RAUL-MAG 500-250 MG ORAL TABS Take one by mouth daily CALCIUM- MAGNESIUM 71893033942 Active Wily Gonzalez DO Active FOSAMAX 70 MG TABS 1 po qweek. Take 30min prior to first food/drink. Avoid lying down x 1 hour. ALENDRONATE SODIUM 60816459974 Active Rose Bang Active CALCIUM 600 MG ORAL TABS 1 po q day CALCIUM 49198754220 Active Rose Bang Active TRIAMCINOLONE ACETONIDE 0.1 % CREA Apply to affected area 3 times daily for up to 2 weeks TRIAMCINOLONE ACETONIDE 98846820614 Active Wily Gonzalez DO Active [id number]-[id number]-VYAS 167-83-8 MG TABS 1 tab po daily [id number] 35361884822 No Longer Active Wily Gonzalez DO Active NYSTATIN 349641 UNIT/GM CREA apply to rash TID PRN NYSTATIN 55644862183 No Longer Active Wily Gonzalez DO Active POLY-IRON 150 150 MG CAPS 1 tab po bid POLYSACCHARIDE IRON COMPLEX 98274214157 No Longer Active Wily Gonzalez DO Active FLONASE ALLERGY RELIEF 50 MCG/ACT NASAL SUSP 2 sprays each nostril every day FLUTICASONE PROPIONATE 24654945293 Active Rose Bang Active CLEMASTINE FUMARATE 1.34 MG ORAL TABS 1 tab PO BID CLEMASTINE FUMARATE 54814502208 No Longer Active Wily Gonzalez DO Active FLOMAX 0.4 MG CAPS 1 capsule in the evening for night time urination. TAMSULOSIN HCL 48666395064 No Longer Active Wily Gonzalez DO Active PROTONIX 40 MG TBEC 1 po daily PANTOPRAZOLE SODIUM 11441997263 Active Agnieszka Yeung Active HYDROXYZINE HCL 25 MG TAB 1 two times a day as needed for anxiety HYDROXYZINE HCL 53057758504 No Longer Active Wily Gonzalez DO Active ANUSOL-HC 25 MG SUPPOSITORY 1 rectally every 12 hours for irritation HYDROCORTISONE NAEL (RECTAL) 69083868514 No Longer Active Wily Gonzalez DO Active HYDROXYZINE HCL 25 MG TABS Take one (1) tablet by mouth twice a day HYDROXYZINE HCL 48886071945 No Longer Active Wily Gonzalez DO Active ZIAC 2.5-6.25 MG TAB 1 tablet daily for high blood pressure 10/27 BISOPROLOL-HCTZ 11916057485 No Longer Active Wily Gonzalez DO Active ZIAC 2.5-6.25 MG TAB 1 tablet every morning for high blood pressure BISOPROLOL-HCTZ 27771495600 No Longer Active Wily Gonzalez DO Active AMOXICILLIN 500 MG CAPS Take one (1) tablet by mouth three times a day 05/05 AMOXICILLIN 27869285835 No Longer Active Wily Gonzalez DO Active MORPHINE SULFATE ER 100 MG CR-TABS Take one (1) tablet by mouth twice a day MORPHINE SULFATE 91303402048 No Longer Active Wily Gonzalez DO Active MORPHINE SULFATE ER 100 MG [id number] 1 capsule twice daily for chronic pain MORPHINE SULFATE 57030486133 Active Rose Bang Active CIALIS 10 MG TABS 1 every 72 hours as needed TADALAFIL 78515846900 No Longer Active Esvin PAULA Active FLONASE 50 MCG/ACT SUSP 2 SPRAY EACH NARE DAILY FLUTICASONE PROPIONATE 48905540173 No Longer Active Esvin PAULA Active CYCLOBENZAPRINE HCL 10 MG TABS Take one (1) tablet by mouth three times a day CYCLOBENZAPRINE HCL 91252622375 Active Lisa Berkowitz Active OPANA ER (CRUSH RESISTANT) 40 MG [id number] Take one (1) tablet by mouth twice a day OXYMORPHONE HCL 08293764246 No Longer Active Esvin PAULA Active PROAIR HFA 108 (90 BASE) MCG/ACT AERS 2 puffs every four hours as needed ALBUTEROL SULFATE 75829205518 No Longer Active Esvin PAULA Active CLEARLAX POWD 17gm q day prn constipation POLYETHYLENE GLYCOL 3350 69350250493 Active Wily Gonzalez DO Active MORPHINE SULFATE ER 100 MG [id number] Take one (1) tablet by mouth twice a day MORPHINE SULFATE 08966244648 No Longer Active Esvin PAULA Active FLEXERIL 10 MG TAB 1 tablet by mouth 3 times daily as needed CYCLOBENZAPRINE HCL 16416326468 No Longer Active Esvin PAULA Active CELEBREX 200 MG CAPS 1 tablet by mouth twice daily with meals CELECOXIB 59272583247 No Longer Active Esvin PAULA Active NEXIUM 40 MG CPDR 1 cap daily ESOMEPRAZOLE MAGNESIUM 08159278520 No Longer Active Esvin PAULA Active MOBIC 15 MG TABS 1 tab daily MELOXICAM 92853449744 No Longer Active Esvin PAULA Active LISINOPRIL 20 MG TABS Take 1 tablet by mouth daily LISINOPRIL 52317576468 No Longer Active Esvin PAULA Active DICLOFENAC SODIUM 50 MG TBEC 1 tablet by mouth four times daily DICLOFENAC SODIUM 14256010368 No Longer Active Paula Cooney RN Active VERAMYST 27.5 MCG/SPRAY SUSP 2 spray each nare daily FLUTICASONE FUROATE 11622489424 No Longer Active Megan Vargas RN Active ENDOCET 10-325 MG TABS Take one (1) tablet by mouth three times a day OXYCODONE-ACETAMINOPHEN 70150436399 Active Rose Bang Active ALPRAZOLAM 2 MG TABS Take one (1) tablet by mouth three times a day ALPRAZOLAM 91862371994 Active Rose Bang Active NEXIUM 40 MG CPDR 1 cap by mouth daily ESOMEPRAZOLE MAGNESIUM 61093629386 No Longer Active Esvin PAULA Active ALPRAZOLAM 2 MG TABS 1 tablet by mouth three times daily as needed ALPRAZOLAM 95879918594 No Longer Active Esvin PAULA Active HYDROXYZINE HCL 25 MG TAB take 1 every 4-6 hours as needed 07/01 HYDROXYZINE HCL 88630290928 No Longer Active Esvin PAULA Active ENDOCET 10-325 MG TABS 1 by mouth twice a day OXYCODONE-ACETAMINOPHEN 70842021111 No Longer Active Esvin PAULA Active MS CONTIN 100 MG [id number] 1 by mouth twice a day MORPHINE SULFATE 39416551059 No Longer Active Esvin PAULA Active SUDAFED 30 MG TAB 1-2 every 4-6 hours as needed PSEUDOEPHEDRINE HCL 02873406207 Active Rose Bang Active VERAMYST 27.5 MCG/SPRAY SUSP 2 spray each nare daily VERAMYST 27.5 MCG/SPRAY SUSP FLUTICASONE FUROATE Inactive DICLOFENAC SODIUM 50 MG TBEC 1 tablet by mouth four times daily DICLOFENAC SODIUM 50 MG TBEC 589583 DICLOFENAC SODIUM Inactive LISINOPRIL 20 MG TABS Take 1 tablet by mouth daily LISINOPRIL 20 MG TABS 842812 LISINOPRIL Inactive MOBIC 15 MG TABS 1 tab daily MOBIC 15 MG TABS 813010 MELOXICAM Inactive NEXIUM 40 MG CPDR 1 cap daily NEXIUM 40 MG CPDR 540810 ESOMEPRAZOLE MAGNESIUM Inactive CELEBREX 200 MG CAPS 1 tablet by mouth twice daily with meals CELEBREX 200 MG CAPS 532106 CELECOXIB Inactive FLEXERIL 10 MG TAB 1 tablet by mouth 3 times daily as needed FLEXERIL 10 MG TAB CYCLOBENZAPRINE HCL Inactive PROAIR HFA 108 (90 BASE) MCG/ACT AERS 2 puffs every four hours as needed PROAIR HFA 108 (90 BASE) MCG/ACT AERS ALBUTEROL SULFATE Inactive FLONASE 50 MCG/ACT SUSP 2 SPRAY EACH NARE DAILY FLONASE 50 MCG/ACT SUSP 7675735 FLUTICASONE PROPIONATE Inactive CIALIS 10 MG TABS 1 every 72 hours as needed CIALIS 10 MG TABS TADALAFIL Inactive MORPHINE SULFATE ER 100 MG CR-TABS Take one (1) tablet by mouth twice a day MORPHINE SULFATE ER 100 MG CR-TABS MORPHINE SULFATE Inactive AMOXICILLIN 500 MG CAPS Take one (1) tablet by mouth three times a day 05/05 AMOXICILLIN 500 MG CAPS 554501 AMOXICILLIN Inactive ZIAC 2.5-6.25 MG TAB 1 tablet every morning for high blood pressure ZIAC 2.5-6.25 MG TAB 910181 BISOPROLOL-HCTZ Inactive ZIAC 2.5-6.25 MG TAB 1 tablet daily for high blood pressure 10/27 ZIAC 2.5-6.25 MG TAB 748459 BISOPROLOL-HCTZ Inactive HYDROXYZINE HCL 25 MG TABS Take one (1) tablet by mouth twice a day HYDROXYZINE HCL 25 MG TABS 014403 HYDROXYZINE HCL Inactive ANUSOL-HC 25 MG SUPPOSITORY 1 rectally every 12 hours for irritation ANUSOL-HC 25 MG SUPPOSITORY 6685589 HYDROCORTISONE NAEL (RECTAL ) Inactive HYDROXYZINE HCL 25 MG TAB 1 two times a day as needed for anxiety HYDROXYZINE HCL 25 MG TAB 046101 HYDROXYZINE HCL Inactive FLOMAX 0.4 MG CAPS 1 capsule in the evening for night time urination. FLOMAX 0.4 MG CAPS 503108 TAMSULOSIN HCL Inactive CLEMASTINE FUMARATE 1.34 MG ORAL TABS 1 tab PO BID CLEMASTINE FUMARATE 1.34 MG ORAL TABS 684690 CLEMASTINE FUMARATE Inactive POLY-IRON 150 150 MG CAPS 1 tab po bid POLY-IRON 150 150 MG CAPS 131451 POLYSACCHARIDE IRON COMPLEX Inactive NYSTATIN 022903 UNIT/GM CREA apply to rash TID PRN NYSTATIN 972745 UNIT/GM CREA 668693 NYSTATIN Inactive [id number]-[id number] 167-83-8 MG TABS 1 tab po daily CYKNCHA-BFCUBHUIS-HMWS 167-83-8 MG TABS 57824112081 CALCIUM-MAGNESIUM- ZINC Inactive CHANTIX 1 MG TABS 1 twice a day CHANTIX 1 MG TABS VARENICLINE TARTRATE Inactive MS CONTIN 100 MG [id number] 1 by mouth twice a day MS CONTIN 100 MG [id number] MORPHINE SULFATE Inactive ENDOCET 10-325 MG TABS 1 by mouth twice a day ENDOCET 10-325 MG TABS 8830986 OXYCODONE-ACETAMINOPHEN Inactive HYDROXYZINE HCL 25 MG TAB take 1 every 4-6 hours as needed 07/01 HYDROXYZINE HCL 25 MG TAB 172095 HYDROXYZINE HCL Inactive ALPRAZOLAM 2 MG TABS 1 tablet by mouth three times daily as needed ALPRAZOLAM 2 MG TABS 196498 ALPRAZOLAM Inactive NEXIUM 40 MG CPDR 1 cap by mouth daily NEXIUM 40 MG CPDR 111041 ESOMEPRAZOLE MAGNESIUM Inactive Advance Directives Directive Description [...] Measured Encounters Code Encounter Date Provider Facility CPT-49597 Level 4 Est. Patient 10:10:03 CDT Wily Gonzalez [facility] CPT-81884 Level 3 Est. Patient 14:25:57 CDT Wily Zhang [facility] CPT-19011 Level 3 Est. Patient 09:51:37 UNDERTAKER ASSISTANT Wily Zhang [facility] CPT-03671 Level 3 Est. Patient 11:07:48 CDT Wily Zhang [facility] CPT-61595 Level 3 Est. Patient 11:24:24 CDT Wily Zhang [facility] CPT-73528 Level 3 Est. Patient 15:19:54 UNDERTAKER ASSISTANT Wily Zhang [facility] CPT-44511 Level 3 Est. Patient 10:04:45 CDT Wily Zhang [facility] CPT-60252 Level 3 Est. Patient 13:04:06 CDT Wily Gonzalez [facility] CPT-09423 Level 3 Est. Patient 12:23:04 CDT Wily Zhang [facility] CPT-68719 Level 3 Est. Patient 15:43:10 UNDERTAKER ASSISTANT Wily Zhang [facility] CPT-45121 Level 3 Est. Patient 16:10:54 CDT Wily Zhang [facility] CPT-01909 Level 3 Est. Patient 19:50:51 CDT Wily W [facility] CPT-59832 Level 3 Est. Patient 12:02:30 UNDERTAKER ASSISTANT Wily Gonzalez [facility] CPT-90272 Level 3 Est. Patient 12:03:11 UNDERTAKER ASSISTANT Wily Gonzalez [facility] CPT-33082 Level 3 Est. Patient 12:01:41 UNDERTAKER ASSISTANT Wily Gonzalez [facility] CPT-94618 Level 3 Est. Patient 11:51:24 UNDERTAKER ASSISTANT Wily Gonzalez [facility] CPT-67492 Level 3 Est. Patient 11:58:20 UNDERTAKER ASSISTANT Wily Gonzalez [facility] CPT-79016 Level 3 Est. Patient 08:31:36 UNDERTAKER ASSISTANT Wily Gonzalez [facility] CPT-62101 Level 3 Est. Patient 21:57:36 CDT Wily Gonzalez [facility] CPT-62023 Level 3 Est. Patient 10:49:58 CDT Esvin PAULA [facility] CPT-93792 Level 3 Est. Patient 11:22:52 CDT Esvin PAULA [facility] CPT-58971 Level 3 Est. Patient 13:49:41 CDT Esvin PAULA [facility] CPT-85196 Level 3 Est. Patient 11:54:53 CDT Esvin PAULA [facility] CPT-41906 Level 3 Est. Patient 09:07:11 CDT Esvin PAULA [facility] CPT-66902 Level 3 Est. Patient 13:52:47 CDT Esvin PAULA [facility] CPT-12327 Level 3 Est. Patient 11:26:46 CDT Esvin PAULA [facility] CPT-21732 Level 3 Est. Patient 10:25:00 UNDERTAKER ASSISTANT Esvin PAULA [facility] CPT-60169 Level 3 Est. Patient 11:39:11 UNDERTAKER ASSISTANT Esvin PAULA [facility] CPT-54623 Level 3 Est. Patient 13:24:24 UNDERTAKER ASSISTANT Esvin PAULA [facility]-25698 Level 3 Est. Patient 10:26:13 UNDERTAKER ASSISTANT Esvin PAULA [facility] CPT-46033 Level 3 Est. Patient 10:21:21 CDT Esvin Eolia PA [facility] CPT-90624 Level 3 Est. Patient 10:26:30 CDT Esvin PAULA [facility]-71845 Level 3 Est. Patient 09:16:37 CDT Esvin PAULA [place]-52267 Level 3 Est. Patient 09:06:58 CDT Esvin PAULA [facility] CPT-18068 Level 3 Est. Patient 10:05:29 CDT Esvin PAULA [facility] CPT-19357 Level 3 Est. Patient 10:38:45 CDT Esvin PAULA [facility] CPT-38889 Level 3 Est. Patient 10:09:45 CDT Esvin PAULA [facility] CPT-71056 Level 3 Est. Patient 09:26:37 CDT Esvin PAULA [facility] CPT-40110 Level 3 Est. Patient 10:34:42 UNDERTAKER ASSISTANT Esvin PAULA [facility] CPT-58776 Level 3 Est. Patient 10:45:47 UNDERTAKER ASSISTANT Esvin PAULA [facility]-64460 Level 3 Est. Patient 10:45:22 UNDERTAKER ASSISTANT Esvin PAULA [facility] CPT-35070 Level 3 Est. Patient 14:18:30 UNDERTAKER ASSISTANT Esvin Eolia [facility] CPT-08140 Level 3 Est. Patient 13:53:29 UNDERTAKER ASSISTANT Esvin Priestner [facility] CPT-84221 Level 3 Est. Patient 10:34:11 CDT Esvin Tristan [facility] Procedures Code Procedure Name Date Entry Date Standard Description CPT-70887 Smoking Cessation counseling 10:10:03 CDT CPT-26862 Smoking Cessation counseling 14:25:57 CDT CPT-43133 Bone Density - XRAY USE ONLY 11:29:32 CDT CPT-32068 LS spine AP and Lat - XRAY USE ONLY 10:07:43 UNDERTAKER ASSISTANT 10/26 CPT-58564 Venipuncture Draw Fee 09:51:16 UNDERTAKER ASSISTANT CPT-16667 Smoking Cessation counseling 09:39:47 UNDERTAKER ASSISTANT CPT-G0438 Initial Annual Wellness Exam 09:37:28 UNDERTAKER ASSISTANT CPT-79947 Venipuncture Draw Fee 09:26:55 CDT CPT-23659 Venipuncture Draw Fee 11:55:52 CDT CPT-05646 Spec Collection and Handling Fee 09:16:37 CDT CPT-63345 Venipuncture Draw Fee 09:16:37 CDT
--- OUTSIDE RECORDS SUMMARY | 2018-02-26 15:07 | XMS REPORT | Clinical Summary ---
Author Author Admin, ERICKA Organization [facility] Address Unknown Phone Unavailable Allergies, Adverse Reactions, [...] TABS 1 tab PO BID CLEMASTINE FUMARATE [id number] No Longer Active Wily Gonzalez DO Active FLOMAX 0.4 MG CAPS 1 capsule in the evening for night time urination. TAMSULOSIN HCL 55450084312 No Longer Active Wily Gonzalez DO Active PROTONIX 40 MG TBEC 1 po daily PANTOPRAZOLE SODIUM 12591280501 Active Wily Gonzalez DO Active HYDROXYZINE HCL 25 MG TAB 1 two times a day as needed for anxiety HYDROXYZINE HCL 89713548030 No Longer Active Wily Gonzalez DO Active ANUSOL-HC 25 MG SUPPOSITORY 1 rectally every 12 hours for irritation HYDROCORTISONE NAEL (RECTAL) 89037536114 No Longer Active Wily Gonzalez DO Active HYDROXYZINE HCL 25 MG TABS Take one (1) tablet by mouth twice a day HYDROXYZINE HCL 94501840393 No Longer Active Wily Gonzalez DO Active ZIAC 2.5-6.25 MG TAB 1 tablet daily for high blood pressure 10/27 BISOPROLOL-HCTZ 39901713123 No Longer Active Wily Gonzalez DO Active [id number] 167-83-8 MG TABS 1 tab po daily CALCIUM -MAGNESIUM-ZINC 71934710928 Active Wily Gonzalez DO Active NYSTATIN 519204 UNIT/GM CREA apply to rash TID PRN NYSTATIN 19348695434 Active Wily Gonzalez DO Active ZIAC 2.5-6.25 MG TAB 1 tablet every morning for high blood pressure BISOPROLOL-HCTZ 68842350640 No Longer Active Wily Gonzalez DO Active AMOXICILLIN 500 MG CAPS Take one (1) tablet by mouth three times a day 05/05 AMOXICILLIN 17482180591 No Longer Active Wily Gonzalez DO Active MORPHINE SULFATE ER 100 MG CR-TABS Take one (1) tablet by mouth twice a day MORPHINE SULFATE 76098830367 No Longer Active Wily Gonzalez DO Active MORPHINE SULFATE ER 100 MG [id number] 1 capsule twice daily for chronic pain MORPHINE SULFATE 75361219036 Active Rudy Cheung MD Active FLONASE 50 MCG/ACT SUSP 2 sprays each nare q day FLUTICASONE PROPIONATE 42704760751 Active Rudy Cheung MD Active CIALIS 10 MG TABS 1 every 72 hours as needed TADALAFIL 82372035158 No Longer Active Esvin PAULA Active FLONASE 50 MCG/ACT SUSP 2 SPRAY EACH NARE DAILY FLUTICASONE PROPIONATE 65935881557 No Longer Active Esvin PAULA Active CYCLOBENZAPRINE HCL 10 MG TABS Take one (1) tablet by mouth three times a day CYCLOBENZAPRINE HCL 77356196458 Active Wily Gonzalez DO Active OPANA ER (CRUSH RESISTANT) 40 MG [id number]-PDF Take one (1) tablet by mouth twice a day OXYMORPHONE HCL 03996679633 No Longer Active Esvin PAULA Active POLY-IRON 150 150 MG CAPS 1 tab po bid POLYSACCHARIDE IRON COMPLEX 30989977892 Active Esvin PAULA Active PROAIR HFA 108 (90 BASE) MCG/ACT AERS 2 puffs every four hours as needed ALBUTEROL SULFATE 68190898338 No Longer Active Esvin PAULA Active CLEARLAX POWD 17gm q day prn constipation POLYETHYLENE GLYCOL 3350 56102532462 Active Jonas PAULA Active MORPHINE SULFATE ER 100 MG [id number]-[id number] Take one (1) tablet by mouth twice a day MORPHINE SULFATE 30016866085 No Longer Active Esvin PAULA Active FLEXERIL 10 MG TAB 1 tablet by mouth 3 times daily as needed CYCLOBENZAPRINE HCL 20250871691 No Longer Active Esvin PAULA Active CELEBREX 200 MG CAPS 1 tablet by mouth twice daily with meals CELECOXIB 87095557771 No Longer Active Esvin PAULA Active NEXIUM 40 MG CPDR 1 cap daily ESOMEPRAZOLE MAGNESIUM 24004743195 No Longer Active Esvin PAULA Active MOBIC 15 MG TABS 1 tab daily MELOXICAM 50176322869 No Longer Active Esvin PAULA Active LISINOPRIL 20 MG TABS Take 1 tablet by mouth daily LISINOPRIL 56004445425 No Longer Active Esvin PAULA Active DICLOFENAC SODIUM 50 MG TBEC 1 tablet by mouth four times daily DICLOFENAC SODIUM 89575516210 No Longer Active Paula Cooney RN Active VERAMYST 27.5 MCG/SPRAY SUSP 2 spray each nare daily FLUTICASONE FUROATE 69290302048 No Longer Active Megan Vargas RN Active ENDOCET 10-325 MG TABS Take one (1) tablet by mouth three times a day OXYCODONE-ACETAMINOPHEN 21196913077 Active Rudy Cheung MD Active ALPRAZOLAM 2 MG TABS Take one (1) tablet by mouth three times a day ALPRAZOLAM 65001355490 Active Jonas PAULA Active NEXIUM 40 MG CPDR 1 cap by mouth daily ESOMEPRAZOLE MAGNESIUM 19429993522 No Longer Active Esvin PAULA Active ALPRAZOLAM 2 MG TABS 1 tablet by mouth three times daily as needed ALPRAZOLAM 49837016528 No Longer Active Esvin PAULA Active HYDROXYZINE HCL 25 MG TAB take 1 every 4-6 hours as needed 07/01 HYDROXYZINE HCL 82079363502 No Longer Active Esvin PAULA Active ENDOCET 10-325 MG TABS 1 by mouth twice a day OXYCODONE-ACETAMINOPHEN 93780018902 No Longer Active Esvin PAULA Active MS CONTIN 100 MG [id number] 1 by mouth twice a day MORPHINE SULFATE 71201542536 No Longer Active Esvin PAULA Active SUDAFED 30 MG TAB 1-2 every 4-6 hours as needed PSEUDOEPHEDRINE HCL 33375198086 Active Wily Gonzalez DO Active VERAMYST 27.5 MCG/SPRAY SUSP 2 spray each nare daily VERAMYST 27.5 MCG/SPRAY SUSP FLUTICASONE FUROATE Inactive DICLOFENAC SODIUM 50 MG TBEC 1 tablet by mouth four times daily DICLOFENAC SODIUM 50 MG TBEC 078561 DICLOFENAC SODIUM Inactive LISINOPRIL 20 MG TABS Take 1 tablet by mouth daily LISINOPRIL 20 MG TABS 384731 LISINOPRIL Inactive MOBIC 15 MG TABS 1 tab daily MOBIC 15 MG TABS 269493 MELOXICAM Inactive NEXIUM 40 MG CPDR 1 cap daily NEXIUM 40 MG CPDR 556380 ESOMEPRAZOLE MAGNESIUM Inactive CELEBREX 200 MG CAPS 1 tablet by mouth twice daily with meals CELEBREX 200 MG CAPS 910239 CELECOXIB Inactive FLEXERIL 10 MG TAB 1 tablet by mouth 3 times daily as needed FLEXERIL 10 MG TAB CYCLOBENZAPRINE HCL Inactive PROAIR HFA 108 (90 BASE) MCG/ACT AERS 2 puffs every four hours as needed PROAIR HFA 108 (90 BASE) MCG/ACT AERS ALBUTEROL SULFATE Inactive FLONASE 50 MCG/ACT SUSP 2 SPRAY EACH NARE DAILY FLONASE 50 MCG/ACT SUSP 441844 FLUTICASONE PROPIONATE Inactive CIALIS 10 MG TABS 1 every 72 hours as needed CIALIS 10 MG TABS TADALAFIL Inactive MORPHINE SULFATE ER 100 MG CR-TABS Take one (1) tablet by mouth twice a day MORPHINE SULFATE ER 100 MG CR-TABS MORPHINE SULFATE Inactive AMOXICILLIN 500 MG CAPS Take one (1) tablet by mouth three times a day 05/05 AMOXICILLIN 500 MG CAPS 965811 AMOXICILLIN Inactive ZIAC 2.5-6.25 MG TAB 1 tablet every morning for high blood pressure ZIAC 2.5-6.25 MG TAB 531718 BISOPROLOL-HCTZ Inactive ZIAC 2.5-6.25 MG TAB 1 tablet daily for high blood pressure 10/27 ZIAC 2.5-6.25 MG TAB 027716 BISOPROLOL-HCTZ Inactive HYDROXYZINE HCL 25 MG TABS Take one (1) tablet by mouth twice a day HYDROXYZINE HCL 25 MG TABS 926114 HYDROXYZINE HCL Inactive ANUSOL-HC 25 MG SUPPOSITORY 1 rectally every 12 hours for irritation ANUSOL-HC 25 MG SUPPOSITORY 8172289 HYDROCORTISONE NAEL (RECTAL ) Inactive HYDROXYZINE HCL 25 MG TAB 1 two times a day as needed for anxiety HYDROXYZINE HCL 25 MG TAB 166024 HYDROXYZINE HCL Inactive FLOMAX 0.4 MG CAPS 1 capsule in the evening for night time urination. FLOMAX 0.4 MG CAPS 182263 TAMSULOSIN HCL Inactive CLEMASTINE FUMARATE 1.34 MG ORAL TABS 1 tab PO BID CLEMASTINE FUMARATE 1.34 MG ORAL TABS 247023 CLEMASTINE FUMARATE Inactive MS CONTIN 100 MG [id number] 1 by mouth twice a day MS CONTIN 100 MG [id number] MORPHINE SULFATE Inactive ENDOCET 10-325 MG TABS 1 by mouth twice a day ENDOCET 10-325 MG TABS 7117735 OXYCODONE-ACETAMINOPHEN Inactive HYDROXYZINE HCL 25 MG TAB take 1 every 4-6 hours as needed 07/01 HYDROXYZINE HCL 25 MG TAB 915711 HYDROXYZINE HCL Inactive ALPRAZOLAM 2 MG TABS 1 tablet by mouth three times daily as needed ALPRAZOLAM 2 MG TABS 142345 ALPRAZOLAM Inactive NEXIUM 40 MG CPDR 1 cap by mouth daily NEXIUM 40 MG CPDR 631468 ESOMEPRAZOLE MAGNESIUM Inactive Advance Directives Directive Description [...] ... - Chemistry sodium, serum 138 mmol/L 286-578 5446/04/13 potassium, serum 4.9 mmol/L 3.5-5.2 chloride, serum [...] [phone] Encounters Code Encounter Date Provider Facility CPT-27950 Level 3 Est. Patient 13:04:06 CDT Wily Gonzalez [facility] CPT-28965 Level 3 Est. Patient 12:23:04 CDT Wily Gonzalez [facility] CPT-48586 Level 3 Est. Patient 15:43:10 DRAWBENCH OPERATOR Wily Gonzalez [facility] CPT-08799 Level 3 Est. Patient 16:10:54 CDT Wily Gonzalez [facility] CPT-43874 Level 3 Est. Patient 19:50:51 CDT Wily Gonzalez [facility] CPT-79648 Level 3 Est. Patient 12:02:30 DRAWBENCH OPERATOR Wily Gonzalez [facility] CPT-73760 Level 3 Est. Patient 12:03:11 DRAWBENCH OPERATOR Wily Gonzalez [facility] CPT-24979 Level 3 Est. Patient 12:01:41 DRAWBENCH OPERATOR Wily Gonzalez [facility] CPT-82973 Level 3 Est. Patient 11:51:24 DRAWBENCH OPERATOR Wily Gonzalez [facility] CPT-70193 Level 3 Est. Patient 11:58:20 DRAWBENCH OPERATOR Wily Gonzalez [facility] CPT-82810 Level 3 Est. Patient 08:31:36 DRAWBENCH OPERATOR Wily Gonzalez [facility] CPT-37491 Level 3 Est. Patient 21:57:36 CDT Wily Gonzalez [facility] CPT-56745 Level 3 Est. Patient 10:49:58 CDT Esvin PAULA [facility] CPT-58972 Level 3 Est. Patient 11:22:52 CDT Esvin Tristan [facility] CPT-06099 Level 3 Est. Patient 13:49:41 CDT Esvin PAULA [facility] CPT-31628 Level 3 Est. Patient 11:54:53 CDT Esvin PAULA [facility] CPT-15207 Level 3 Est. Patient 09:07:11 CDT Esvin PAULA [facility] CPT-14114 Level 3 Est. Patient 13:52:47 CDT Esvin Lincolnton PA [facility] CPT-35180 Level 3 Est. Patient 11:26:46 CDT Esvin PAULA [facility] CPT-28499 Level 3 Est. Patient 10:25:00 DRAWBENCH OPERATOR Esvin PAULA [facility] CPT-94440 Level 3 Est. Patient 11:39:11 DRAWBENCH OPERATOR Esvin PAULA [facility] CPT-48045 Level 3 Est. Patient 13:24:24 DRAWBENCH OPERATOR Esvin PAULA [facility] CPT-44508 Level 3 Est. Patient 10:26:13 DRAWBENCH OPERATOR Esvin PAULA [facility] CPT-05476 Level 3 Est. Patient 10:21:21 CDT Esvin Hudson [facility] CPT-54533 Level 3 Est. Patient 10:26:30 CDT Esvin Lincolnton PA [facility] CPT-17679 Level 3 Est. Patient 09:16:37 CDT Esvin Tristan PA [facility] CPT-17203 Level 3 Est. Patient 09:06:58 CDT Esvin Tristan PA [facility] CPT-24174 Level 3 Est. Patient 10:05:29 CDT Esvin Lincolnton PA [facility] CPT-38991 Level 3 Est. Patient 10:38:45 CDT Esvin Lincolnton PA [facility] CPT-23747 Level 3 Est. Patient 10:09:45 CDT Esvin Lincolnton PA [facility] CPT-90897 Level 3 Est. Patient 09:26:37 CDT Esvin PAULA [facility] CPT-08179 Level 3 Est. Patient 10:34:42 DRAWBENCH OPERATOR Esvin Lincolnton PA [facility] CPT-70220 Level 3 Est. Patient 10:45:47 DRAWBENCH OPERATOR Esvin Tristan PA [facility] CPT-40281 Level 3 Est. Patient 10:45:22 DRAWBENCH OPERATOR Esvin Tristan [facility] CPT-36596 Level 3 Est. Patient 14:18:30 DRAWBENCH OPERATOR Esvin Hudson [facility] CPT-24996 Level 3 Est. Patient 13:53:29 DRAWBENCH OPERATOR Esvin Hudson [facility] CPT-53844 Level 3 Est. Patient 10:34:11 CDT Esvin Hudson [facility] Procedures Code Procedure Name Date Entry Date Standard Description CPT-41107 Venipuncture Draw Fee 09:26:55 CDT CPT-85725 Venipuncture Draw Fee 11:55:52 CDT CPT-66003 Spec Collection and Handling Fee 09:16:37 CDT CPT-40364 Venipuncture Draw Fee 09:16:37 CDT
--- OUTSIDE RECORDS SUMMARY | 2018-02-26 15:10 | XMS REPORT | Clinical Summary ---
Author Author Admin, E Organization [facility] Address Unknown Phone Unavailable Allergies, Adverse Reactions, [...] without diagnosis of hypertension 796.2 Active Wily Zhang Carlos DO Elevated blood pressure reading without diagnosis [...] DO Body Mass Index between 19-24, adult ANKLE PAIN ICD-719.47 Inactive Wily Gonzalez DO [...] mouth daily for blood pressure METOPROLOL SUCCINATE 00947954720 Active Wily Gonzalez DO Active METOPROLOL TARTRATE 25 MG ORAL TABLET 1/2 tab by mouth twice dialy for blood pressure METOPROLOL TARTRATE 34156648950 No Longer Active Wily Gonzalez DO Active PROTONIX 40 MG ORAL TABLET DELAYED RELEASE 1 po prn PANTOPRAZOLE SODIUM 41014438243 Active Wily Gonzalez DO Active TRIAMCINOLONE ACETONIDE 0.1 % EXTERNAL CREAM Apply to affected area 3 times daily for up to 2 weeks TRIAMCINOLONE ACETONIDE 75074414347 No Longer Active Wily Gonzalez DO Active CHANTIX 1 MG ORAL TABLET 1 twice a day VARENICLINE TARTRATE 63420979867 No Longer Active Wily Gonzalez DO Active RAUL-MAG 500-250 MG ORAL TABLET Take one by mouth daily CALCIUM -MAGNESIUM 20082791606 Active Wily Gonzalez DO Active FOSAMAX 70 MG ORAL TABLET 1 po qweek. Take 30min prior to first food/drink. Avoid lying down x 1 hour. ALENDRONATE SODIUM 87663092694 Active Laurie Latham LPN Active CALCIUM 600 MG ORAL TABLET 1 po q day CALCIUM 58723269257 Active Rose Bang Active [id number] 167-83-8 MG ORAL TABLET 1 tab po daily [id number]-[id number]-XIEW 30487248162 No Longer Active Wily Gonzalez DO Active NYSTATIN 845267 UNIT/GM EXTERNAL CREAM apply to rash TID PRN 2015 NYSTATIN 40683965466 No Longer Active Wily Gonzalez DO Active POLY-IRON 150 150 MG ORAL CAPSULE 1 tab po bid POLYSACCHARIDE IRON COMPLEX 21097294753 No Longer Active Wily Gonzalez DO Active FLONASE ALLERGY RELIEF 50 MCG/ACT NASAL SUSPENSION 2 sprays each nostril every day FLUTICASONE PROPIONATE 70177632097 Active Wily Gonzalez DO Active CLEMASTINE FUMARATE 1.34 MG ORAL TABLET 1 tab PO BID CLEMASTINE FUMARATE 69781092300 No Longer Active Wily Gonzalez DO Active FLOMAX 0.4 MG ORAL CAPSULE 1 capsule in the evening for night time urination. TAMSULOSIN HCL 71936300242 No Longer Active Wily Gonzalez DO Active HYDROXYZINE HCL 25 MG ORAL TABLET 1 two times a day as needed for anxiety HYDROXYZINE HCL 27157130252 No Longer Active Wily Gonzalez DO Active ANUSOL-HC 25 MG RECTAL SUPPOSITORY 1 rectally every 12 hours for irritation HYDROCORTISONE NAEL (RECTAL) 15427127780 No Longer Active Wily Gonzalez DO Active HYDROXYZINE HCL 25 MG ORAL TABLET Take one (1) tablet by mouth twice a day HYDROXYZINE HCL 35590584750 No Longer Active Wily Gonzalez DO Active ZIAC 2.5-6.25 MG ORAL TABLET 1 tablet daily for high blood pressure BISOPROLOL-HCTZ 63194450304 No Longer Active Wily Gonzalez DO Active ZIAC 2.5-6.25 MG ORAL TABLET 1 tablet every morning for high blood pressure BISOPROLOL-HCTZ 39571155550 No Longer Active Wily Gonzalez DO Active AMOXICILLIN 500 MG ORAL CAPSULE Take one (1) tablet by mouth three times a day AMOXICILLIN 48766013417 No Longer Active Wily Gonzalez DO Active MORPHINE SULFATE ER 100 MG ORAL TABLET EXTENDED RELEASE Take one (1) tablet by mouth twice a day MORPHINE SULFATE 06830021602 No Longer Active Wily Gonzalez DO Active MORPHINE SULFATE ER 100 MG ORAL CAPSULE EXTENDED RELEASE 24 HOUR 1 capsule twice daily for chronic pain MORPHINE SULFATE 02256584501 Active Wily Gonzalez DO Active CIALIS 10 MG ORAL TABLET 1 every 72 hours as needed TADALAFIL 49200154066 No Longer Active Esvin PAULA Active FLONASE 50 MCG/ACT NASAL SUSPENSION 2 SPRAY EACH NARE DAILY 05/08 FLUTICASONE PROPIONATE 45512526917 No Longer Active Esvin PAULA Active CYCLOBENZAPRINE HCL 10 MG ORAL TABLET Take one (1) tablet by mouth three times a day CYCLOBENZAPRINE HCL 70488993831 Active Rose Bang Active OPANA ER 40 MG ORAL TABLET ER 12 HOUR ABUSE-DETERRENT Take one (1) tablet by mouth twice a day OXYMORPHONE HCL 65089625348 No Longer Active Esvin PAULA Active PROAIR HFA 108 (90 Base) MCG/ACT INHALATION AEROSOL SOLUTION 2 puffs every four hours as needed ALBUTEROL SULFATE 47009469430 No Longer Active Esvin PAULA Active CLEARLAX ORAL POWDER 17gm q day prn constipation POLYETHYLENE GLYCOL 3350 82684046206 Active Wily Gonzalez DO Active MORPHINE SULFATE ER 100 MG ORAL CAPSULE EXTENDED RELEASE 24 HOUR Take one (1) tablet by mouth twice a day MORPHINE SULFATE 72896773036 No Longer Active Esvin PAULA Active FLEXERIL 10 MG TAB 1 tablet by mouth 3 times daily as needed CYCLOBENZAPRINE HCL 15479161109 No Longer Active Esvin PAULA Active CELEBREX 200 MG ORAL CAPSULE 1 tablet by mouth twice daily with meals 2012 CELECOXIB 80813096629 No Longer Active Esvin PAULA Active NEXIUM 40 MG ORAL CAPSULE DELAYED RELEASE 1 cap daily ESOMEPRAZOLE MAGNESIUM 07319760185 No Longer Active Esvin PAULA Active MOBIC 15 MG ORAL TABLET 1 tab daily MELOXICAM 62646726490 No Longer Active Esvin PAULA Active LISINOPRIL 20 MG ORAL TABLET Take 1 tablet by mouth daily LISINOPRIL 43431522470 No Longer Active Esvin PAULA Active DICLOFENAC SODIUM 50 MG ORAL TABLET DELAYED RELEASE 1 tablet by mouth four times daily DICLOFENAC SODIUM 55570106769 No Longer Active Paula Cooney RN Active VERAMYST 27.5 MCG/SPRAY NASAL SUSPENSION 2 spray each nare daily FLUTICASONE FUROATE 64089881221 No Longer Active Megan Vargas RN Active ENDOCET 10-325 MG ORAL TABLET Take one (1) tablet by mouth three times a day OXYCODONE-ACETAMINOPHEN 24692837108 Active Wily Gonzalez DO Active ALPRAZOLAM 2 MG ORAL TABLET Take one (1) tablet by mouth three times a day ALPRAZOLAM 92802447488 Active Wily Gonzalez DO Active NEXIUM 40 MG ORAL CAPSULE DELAYED RELEASE 1 cap by mouth daily ESOMEPRAZOLE MAGNESIUM 67817467788 No Longer Active Esvin PAULA Active ALPRAZOLAM 2 MG ORAL TABLET 1 tablet by mouth three times daily as needed ALPRAZOLAM 79838171893 No Longer Active Esvin PAULA Active HYDROXYZINE HCL 25 MG ORAL TABLET take 1 every 4-6 hours as needed HYDROXYZINE HCL 63986704605 No Longer Active Esvin PAULA Active ENDOCET 10-325 MG ORAL TABLET 1 by mouth twice a day OXYCODONE-ACETAMINOPHEN 93624450902 No Longer Active Esvin PAULA Active MS CONTIN 100 MG ORAL TABLET EXTENDED RELEASE 1 by mouth twice a day MORPHINE SULFATE 39167462930 No Longer Active Esvin PAULA Active SUDAFED 30 MG ORAL TABLET 1-2 every 4-6 hours as needed PSEUDOEPHEDRINE HCL 36296218594 Active Wily Gonzalez DO Active VERAMYST 27.5 MCG/SPRAY NASAL SUSPENSION 2 spray each nare daily VERAMYST 27.5 MCG/SPRAY NASAL SUSPENSION FLUTICASONE FUROATE Inactive DICLOFENAC SODIUM 50 MG ORAL TABLET DELAYED RELEASE 1 tablet by mouth four times daily DICLOFENAC SODIUM 50 MG ORAL TABLET DELAYED RELEASE 652066 DICLOFENAC SODIUM Inactive LISINOPRIL 20 MG ORAL TABLET Take 1 tablet by mouth daily LISINOPRIL 20 MG ORAL TABLET 257408 LISINOPRIL Inactive MOBIC 15 MG ORAL TABLET 1 tab daily MOBIC 15 MG ORAL TABLET 006599 MELOXICAM Inactive NEXIUM 40 MG ORAL CAPSULE DELAYED RELEASE 1 cap daily NEXIUM 40 MG ORAL CAPSULE DELAYED RELEASE 354870 ESOMEPRAZOLE MAGNESIUM Inactive CELEBREX 200 MG ORAL CAPSULE 1 tablet by mouth twice daily with meals 2012 CELEBREX 200 MG ORAL CAPSULE 126495 CELECOXIB Inactive FLEXERIL 10 MG TAB 1 [...] DAILY 05/08 FLONASE 50 MCG/ACT NASAL SUSPENSION 2095782 FLUTICASONE PROPIONATE Inactive CIALIS 10 MG ORAL [...] a day AMOXICILLIN 500 MG ORAL CAPSULE 800417 AMOXICILLIN Inactive ZIAC 2.5-6.25 MG ORAL TABLET 1 tablet every morning for high blood pressure ZIAC 2.5-6.25 MG ORAL TABLET 509074 BISOPROLOL-HCTZ Inactive ZIAC 2.5-6.25 MG ORAL TABLET 1 tablet daily for high blood pressure ZIAC 2.5-6.25 MG ORAL TABLET 403572 BISOPROLOL-HCTZ Inactive HYDROXYZINE HCL 25 MG ORAL TABLET Take one (1) tablet by mouth twice a day HYDROXYZINE HCL 25 MG ORAL TABLET 068264 HYDROXYZINE HCL Inactive ANUSOL-HC 25 MG RECTAL SUPPOSITORY 1 rectally every 12 hours for irritation ANUSOL-HC 25 MG RECTAL SUPPOSITORY 2886064 HYDROCORTISONE NAEL (RECTAL) Inactive HYDROXYZINE HCL 25 MG ORAL TABLET 1 two times a day as needed for anxiety HYDROXYZINE HCL 25 MG ORAL TABLET 819941 HYDROXYZINE HCL Inactive FLOMAX 0.4 MG ORAL CAPSULE 1 capsule in the evening for night time urination. FLOMAX 0.4 MG ORAL CAPSULE 190694 TAMSULOSIN HCL Inactive CLEMASTINE FUMARATE 1.34 MG ORAL TABLET 1 tab PO BID CLEMASTINE FUMARATE 1.34 MG ORAL TABLET 514915 CLEMASTINE FUMARATE Inactive POLY-IRON 150 150 MG ORAL CAPSULE 1 tab po bid POLY-IRON 150 150 MG ORAL CAPSULE 760394 POLYSACCHARIDE IRON COMPLEX Inactive NYSTATIN 946918 UNIT/GM EXTERNAL CREAM apply to rash TID PRN 2015 NYSTATIN 648961 UNIT/GM EXTERNAL CREAM 412117 NYSTATIN Inactive [id number]-[id number]-OEQE 167-83-8 MG ORAL TABLET 1 tab po daily [id number] 167-83-8 MG ORAL TABLET 44219123139 CALCIUM -MAGNESIUM-ZINC Inactive CHANTIX 1 MG ORAL TABLET 1 twice a day CHANTIX 1 MG ORAL TABLET VARENICLINE TARTRATE Inactive TRIAMCINOLONE ACETONIDE 0.1 % EXTERNAL CREAM Apply to affected area 3 times daily for up to 2 weeks TRIAMCINOLONE ACETONIDE 0.1 % EXTERNAL CREAM 7542948 TRIAMCINOLONE ACETONIDE Inactive METOPROLOL TARTRATE 25 MG ORAL TABLET 1/2 tab by mouth twice dialy for blood pressure METOPROLOL TARTRATE 25 MG ORAL TABLET 830889 METOPROLOL TARTRATE Inactive MS CONTIN 100 MG ORAL TABLET EXTENDED RELEASE 1 by mouth twice a day MS CONTIN 100 MG ORAL TABLET EXTENDED RELEASE MORPHINE SULFATE Inactive ENDOCET 10-325 MG ORAL TABLET 1 by mouth twice a day ENDOCET 10-325 MG ORAL TABLET 4983767 OXYCODONE-ACETAMINOPHEN Inactive HYDROXYZINE HCL 25 MG ORAL TABLET take 1 every 4-6 hours as needed HYDROXYZINE HCL 25 MG ORAL TABLET 745095 HYDROXYZINE HCL Inactive ALPRAZOLAM 2 MG ORAL TABLET 1 tablet by mouth three times daily as needed ALPRAZOLAM 2 MG ORAL TABLET 369505 ALPRAZOLAM Inactive NEXIUM 40 MG ORAL CAPSULE DELAYED RELEASE 1 cap by mouth daily NEXIUM 40 MG ORAL CAPSULE DELAYED RELEASE 385589 ESOMEPRAZOLE MAGNESIUM Inactive Advance Directives Directive Description [...] CBC - Hematology mean corpuscular hemoglobin, RBC 31.9 pg 27.0-31.2 mean corpuscular hemoglobin concentration, RBC 33.4 G/DL % 31.8- 35.4 red blood cell distribution width 14.6 % 11.6-14.8 platelet count 280 10^3/MM^3 10*3/mm3 033-481 3323/05/03 mean corpuscular volume, RBC 96 fL 80-97 hematocrit, blood 42.2 % 40.0-54.0 hemoglobin, blood 14.1 g/dL 14.0-18.0 erythrocyte (RBC) count 4.42 10^6/MM^3 10*6/mm3 4.50-6.50 leukocyte count, blood 7.8 10^3/MM^3 10*3/mm3 4.6-10.2 Lab Report: Comp. Metabolic Panel, Lipid Panel, Prostatic Specific Ag - Chemistry sodium, serum 141 mmol/L 721-924 2058/05/03 creatinine, serum 0.90 mg/dL 0.60-1.30 alanine aminotransferase (SGPT), serum 19 U/L 12-78 aspartate aminotransferase (SGOT), serum 14 U/L 15-37 calcium, serum 9.1 mg/dL 8.5-10.1 bilirubin, serum, total 0.20 mg/dL 0.00-1.00 cholesterol, serum 178 mg/dL 196-372 7430/05/03 triglyceride, serum, fasting 96 mg/dL 30-200 HDL cholesterol, serum 78 mg/dL 32-60 LDL cholesterol, serum 81 mg/dL 0-130 prostate specific antigen 0.04 ng/mL 0.00-4.00 carbon dioxide, venous blood 35.9 mmol/L 21.0-32.0 potassium, serum 4.2 mmol/L 3.5-5.2 chloride, serum 105 mmol/L 98-107 blood glucose 77 mg/dL 65-95 urea nitrogen, blood 12 mg/dL 7-18 Encounters Code Encounter Date Provider Facility CPT-63334 Level 4 Est. Patient 14:48:04 CDT Wily Zhang [facility] CPT-94662 Level 4 Est. Patient 16:18:01 CDT Wily Zhang [facility] CPT-99164 Level 4 Est. Patient 16:17:36 CDT Wily Zhang [facility] CPT-97121 Level 4 Est. Patient 12:51:46 CDT Wily Zhang [facility] CPT-39576 Level 4 Est. Patient 10:10:03 CDT Wily Zhang [facility] CPT-78427 Level 3 Est. Patient 14:25:57 CDT Wily Zhang [facility] CPT-01412 Level 3 Est. Patient 09:51:37 ODD TICKET CLERK Wily Vicente [facility] CPT-74584 Level 3 Est. Patient 11:07:48 CDT Wily Vicente [facility] CPT-94503 Level 3 Est. Patient 11:24:24 CDT Wily Vicente [facility] CPT-49190 Level 3 Est. Patient 15:19:54 ODD TICKET CLERK Wily Zhang [facility] CPT-47335 Level 3 Est. Patient 10:04:45 CDT Wily Zhang [facility] CPT-28898 Level 3 Est. Patient 13:04:06 CDT Wily Zhang [facility] CPT-55607 Level 3 Est. Patient 12:23:04 CDT [facility] C[facility]-08420 Level 3 Est. Patient 15:43:10 ODD TICKET CLERK Wily Gonzalez [facility] CPT-99756 Level 3 Est. Patient 16:10:54 CDT Wily Gonzalez [facility] CPT-55713 Level 3 Est. Patient 19:50:51 CDT Wily Gonzalez [facility] CPT-39130 Level 3 Est. Patient 12:02:30 ODD TICKET CLERK Wily Gonzalez [facility] CPT-26257 Level 3 Est. Patient 12:03:11 ODD TICKET CLERK Wily Gonzalez [facility] CPT-67788 Level 3 Est. Patient 12:01:41 ODD TICKET CLERK Wily Gonzalez [facility] CPT-41698 Level 3 Est. Patient 11:51:24 ODD TICKET CLERK Wily Gonzalez [facility] CPT-95345 Level 3 Est. Patient 11:58:20 ODD TICKET CLERK Wily Gonzalez [facility] CPT-31461 Level 3 Est. Patient 08:31:36 ODD TICKET CLERK Wily Gonzalez [facility] CPT-16775 Level 3 Est. Patient 21:57:36 CDT Wily Gonzalez [facility] CPT-88964 Level 3 Est. Patient 10:49:58 CDT Esvin [facility] CPT-09809 Level 3 Est. Patient 11:22:52 CDT Esvin [facility] CPT-19903 Level 3 Est. Patient 13:49:41 CDT Esvin [facility] CPT-34483 Level 3 Est. Patient 11:54:53 CDT Esvin [facility] CPT-85046 Level 3 Est. Patient 09:07:11 CDT Esvin Hudson [facility] CPT-85310 Level 3 Est. Patient 13:52:47 CDT Esvin Tristan CHAI [facility] CPT-71374 Level 3 Est. Patient 11:26:46 CDT Esvin Foster PA [facility] CPT-94934 Level 3 Est. Patient 10:25:00 ODD TICKET CLERK Esvin Priestinge PAULA [facility] CPT-03555 Level 3 Est. Patient 11:39:11 ODD TICKET CLERK Esvin Foster PA [facility] CPT-41908 Level 3 Est. Patient 13:24:24 ODD TICKET CLERK Esvin Foster PA [facility] CPT-32655 Level 3 Est. Patient 10:26:13 ODD TICKET CLERK Esvin Tristan PA [facility] CPT-36877 Level 3 Est. Patient 10:21:21 CDT Esvin Foster PA [facility] CPT-81503 Level 3 Est. Patient 10:26:30 CDT Esvin Foster PA [facility] CPT-72736 Level 3 Est. Patient 09:16:37 CDT Esvin Tristan PA [facility]-84259 Level 3 Est. Patient 09:06:58 CDT Esvin Foster PA [facility] CPT-07917 Level 3 Est. Patient 10:05:29 CDT Esvin Foster PA [facility] CPT-31376 Level 3 Est. Patient 10:38:45 CDT Esvin Tristan PA [facility] CPT-92293 Level 3 Est. Patient 10:09:45 CDT Esvin Foster PA [facility] CPT-11065 Level 3 Est. Patient 09:26:37 CDT Esvin PAULA [facility] CPT-74471 Level 3 Est. Patient 10:34:42 ODD TICKET CLERK Esvin PAULA [facility] CPT-71930 Level 3 Est. Patient 10:45:47 ODD TICKET CLERK Esvin Hudson [facility] CPT-88247 Level 3 Est. Patient 10:45:22 ODD TICKET CLERK Esvin Hudson [facility] CPT-97952 Level 3 Est. Patient 14:18:30 ODD TICKET CLERK Esvin Hudson [facility] CPT-26978 Level 3 Est. Patient 13:53:29 ODD TICKET CLERK Esvin Hudson [facility] CPT-26442 Level 3 Est. Patient 10:34:11 CDT Esvin Hudson [facility] Procedures Code Procedure Name Date Entry Date Standard Description CPT-G0439 Subsequent Annual Wellness Exam 12:28:53 CDT CPT-51395 Smoking Cessation counseling 10:10:03 CDT CPT-44397 Smoking Cessation counseling 14:25:57 CDT CPT-83606 Bone Density - XRAY USE ONLY 11:29:32 CDT CPT-66672 LS spine AP and Lat - XRAY USE ONLY 10:07:43 ODD TICKET CLERK 10/26 CPT-95097 Venipuncture Draw Fee 09:51:16 ODD TICKET CLERK CPT-92143 Smoking Cessation counseling 09:39:47 ODD TICKET CLERK CPT-G0438 Initial Annual Wellness Exam 09:37:28 ODD TICKET CLERK CPT-98629 Venipuncture Draw Fee 09:26:55 CDT CPT-61121 Venipuncture Draw Fee 11:55:52 CDT CPT-05210 Spec Collection and Handling Fee 09:16:37 CDT CPT-73024 Venipuncture Draw Fee 09:16:37 CDT
--- OUTSIDE RECORDS SUMMARY | 2018-02-26 15:14 | XMS REPORT | Clinical Summary ---
Author Author Admin, E Organization [facility] Address Unknown Phone Unavailable Allergies, [...] Stop Date Generic Name [facility] Status Provider Patient Instruction CHANTIX 1 MG TABS 1 twice a day VARENICLINE TARTRATE [id number] No Longer Active Wily Gonzalez DO Active RAUL-MAG 500-250 MG ORAL TABS Take one by mouth daily CALCIUM- MAGNESIUM 53666405185 Active Wily Gonzalez DO Active FOSAMAX 70 MG TABS 1 po qweek. Take 30min prior to first food/drink. Avoid lying down x 1 hour. ALENDRONATE SODIUM 10754039298 Active Rose Bang Active CALCIUM 600 MG ORAL TABS 1 po q day CALCIUM 20235593927 Active Rose Bang Active TRIAMCINOLONE ACETONIDE 0.1 % CREA Apply to affected area 3 times daily for up to 2 weeks TRIAMCINOLONE ACETONIDE 62315472260 Active Wily Gonzalez DO Active VUEOUFE-LMEUFVTGC-OXYG 167-83-8 MG TABS 1 tab po daily KXRURIU-CBJJQRNRC-JANM 79949105281 No Longer Active Wily Gonzalez DO Active NYSTATIN 974606 UNIT/GM CREA apply to rash TID PRN NYSTATIN 59300101099 No Longer Active Wily Gonzalez DO Active POLY-IRON 150 150 MG CAPS 1 tab po bid POLYSACCHARIDE IRON COMPLEX 96271712001 No Longer Active Wily Gonzalez DO Active FLONASE ALLERGY RELIEF 50 MCG/ACT NASAL SUSP 2 sprays each nostril every day FLUTICASONE PROPIONATE 41872797878 Active Jodi Lucas APRN Active CLEMASTINE FUMARATE 1.34 MG ORAL TABS 1 tab PO BID CLEMASTINE FUMARATE 05658585461 No Longer Active Wily Gonzalez DO Active FLOMAX 0.4 MG CAPS 1 capsule in the evening for night time urination. TAMSULOSIN HCL 79620425742 No Longer Active Wily Gonzalez DO Active PROTONIX 40 MG TBEC 1 po daily PANTOPRAZOLE SODIUM 41072746233 Active Agnieszka Yeung Active HYDROXYZINE HCL 25 MG TAB 1 two times a day as needed for anxiety HYDROXYZINE HCL 28919092062 No Longer Active Wily Gonzalez DO Active ANUSOL-HC 25 MG SUPPOSITORY 1 rectally every 12 hours for irritation HYDROCORTISONE NAEL (RECTAL) 67521669652 No Longer Active Wily Gonzalez DO Active HYDROXYZINE HCL 25 MG TABS Take one (1) tablet by mouth twice a day HYDROXYZINE HCL 47127215997 No Longer Active Wily Gonzalez DO Active ZIAC 2.5-6.25 MG TAB 1 tablet daily for high blood pressure 10/27 BISOPROLOL-HCTZ 53307839476 No Longer Active Wily Gonzalez DO Active ZIAC 2.5-6.25 MG TAB 1 tablet every morning for high blood pressure BISOPROLOL-HCTZ 65830396838 No Longer Active Wily Gonzalez DO Active AMOXICILLIN 500 MG CAPS Take one (1) tablet by mouth three times a day 05/05 AMOXICILLIN 66711025038 No Longer Active Wily Gonzalez DO Active MORPHINE SULFATE ER 100 MG CR-TABS Take one (1) tablet by mouth twice a day MORPHINE SULFATE 99217923216 No Longer Active Wily Gonzalez DO Active MORPHINE SULFATE ER 100 MG [id number] 1 capsule twice daily for chronic pain MORPHINE SULFATE 75808816056 Active Lisa Berkowitz Active CIALIS 10 MG TABS 1 every 72 hours as needed TADALAFIL 27154097292 No Longer Active Esvin PAULA Active FLONASE 50 MCG/ACT SUSP 2 SPRAY EACH NARE DAILY FLUTICASONE PROPIONATE 86404072091 No Longer Active Esvin PAULA Active CYCLOBENZAPRINE HCL 10 MG TABS Take one (1) tablet by mouth three times a day CYCLOBENZAPRINE HCL 00304739431 Active Lisa Berkowitz Active OPANA ER (CRUSH RESISTANT) 40 MG [id number] Take one (1) tablet by mouth twice a day OXYMORPHONE HCL 50204331307 No Longer Active Esvin PAULA Active PROAIR HFA 108 (90 BASE) MCG/ACT AERS 2 puffs every four hours as needed ALBUTEROL SULFATE 71312179121 No Longer Active Esvin PAULA Active CLEARLAX POWD 17gm q day prn constipation POLYETHYLENE GLYCOL 3350 58222824786 Active Wily Gonzalez DO Active MORPHINE SULFATE ER 100 MG [id number] Take one (1) tablet by mouth twice a day MORPHINE SULFATE 88588845828 No Longer Active Esvin PAULA Active FLEXERIL 10 MG TAB 1 tablet by mouth 3 times daily as needed CYCLOBENZAPRINE HCL 44870923964 No Longer Active Esvin PAULA Active CELEBREX 200 MG CAPS 1 tablet by mouth twice daily with meals CELECOXIB 68228558876 No Longer Active Esvin PAULA Active NEXIUM 40 MG CPDR 1 cap daily ESOMEPRAZOLE MAGNESIUM 18276606375 No Longer Active Esvin PAULA Active MOBIC 15 MG TABS 1 tab daily MELOXICAM 65601060911 No Longer Active Esvin PAULA Active LISINOPRIL 20 MG TABS Take 1 tablet by mouth daily LISINOPRIL 32577212580 No Longer Active Esvin PAULA Active DICLOFENAC SODIUM 50 MG TBEC 1 tablet by mouth four times daily DICLOFENAC SODIUM 33495653540 No Longer Active Paula Cooney RN Active VERAMYST 27.5 MCG/SPRAY SUSP 2 spray each nare daily FLUTICASONE FUROATE 43777663848 No Longer Active Megan Vargas RN Active ENDOCET 10-325 MG TABS Take one (1) tablet by mouth three times a day OXYCODONE-ACETAMINOPHEN 41794986924 Active Lisa Berkowitz Active ALPRAZOLAM 2 MG TABS Take one (1) tablet by mouth three times a day ALPRAZOLAM 40671284691 Active Lisa Berkowitz Active NEXIUM 40 MG CPDR 1 cap by mouth daily ESOMEPRAZOLE MAGNESIUM 53880297341 No Longer Active Esvin PAULA Active ALPRAZOLAM 2 MG TABS 1 tablet by mouth three times daily as needed ALPRAZOLAM 07908056036 No Longer Active Esvin PAULA Active HYDROXYZINE HCL 25 MG TAB take 1 every 4-6 hours as needed 07/01 HYDROXYZINE HCL 15600373604 No Longer Active Esvin PAULA Active ENDOCET 10-325 MG TABS 1 by mouth twice a day OXYCODONE-ACETAMINOPHEN 29112383348 No Longer Active Esvin PAULA Active MS CONTIN 100 MG [id number] 1 by mouth twice a day MORPHINE SULFATE 64635811682 No Longer Active Esvin PAULA Active SUDAFED 30 MG TAB 1-2 every 4-6 hours as needed PSEUDOEPHEDRINE HCL 64645136431 Active Rose Bang Active VERAMYST 27.5 MCG/SPRAY SUSP 2 spray each nare daily VERAMYST 27.5 MCG/SPRAY SUSP FLUTICASONE FUROATE Inactive DICLOFENAC SODIUM 50 MG TBEC 1 tablet by mouth four times daily DICLOFENAC SODIUM 50 MG TBEC 442985 DICLOFENAC SODIUM Inactive LISINOPRIL 20 MG TABS Take 1 tablet by mouth daily LISINOPRIL 20 MG TABS 096915 LISINOPRIL Inactive MOBIC 15 MG TABS 1 tab daily MOBIC 15 MG TABS 817058 MELOXICAM Inactive NEXIUM 40 MG CPDR 1 cap daily NEXIUM 40 MG CPDR 138132 ESOMEPRAZOLE MAGNESIUM Inactive CELEBREX 200 MG CAPS 1 tablet by mouth twice daily with meals CELEBREX 200 MG CAPS 344789 CELECOXIB Inactive FLEXERIL 10 MG TAB 1 tablet by mouth 3 times daily as needed FLEXERIL 10 MG TAB CYCLOBENZAPRINE HCL Inactive PROAIR HFA 108 (90 BASE) MCG/ACT AERS 2 puffs every four hours as needed PROAIR HFA 108 (90 BASE) MCG/ACT AERS ALBUTEROL SULFATE Inactive FLONASE 50 MCG/ACT SUSP 2 SPRAY EACH NARE DAILY FLONASE 50 MCG/ACT SUSP 1957156 FLUTICASONE PROPIONATE Inactive CIALIS 10 MG TABS 1 every 72 hours as needed CIALIS 10 MG TABS TADALAFIL Inactive MORPHINE SULFATE ER 100 MG CR-TABS Take one (1) tablet by mouth twice a day MORPHINE SULFATE ER 100 MG CR-TABS MORPHINE SULFATE Inactive AMOXICILLIN 500 MG CAPS Take one (1) tablet by mouth three times a day 05/05 AMOXICILLIN 500 MG CAPS 666689 AMOXICILLIN Inactive ZIAC 2.5-6.25 MG TAB 1 tablet every morning for high blood pressure ZIAC 2.5-6.25 MG TAB 814571 BISOPROLOL-HCTZ Inactive ZIAC 2.5-6.25 MG TAB 1 tablet daily for high blood pressure 10/27 ZIAC 2.5-6.25 MG TAB 027527 BISOPROLOL-HCTZ Inactive HYDROXYZINE HCL 25 MG TABS Take one (1) tablet by mouth twice a day HYDROXYZINE HCL 25 MG TABS 778062 HYDROXYZINE HCL Inactive ANUSOL-HC 25 MG SUPPOSITORY 1 rectally every 12 hours for irritation ANUSOL-HC 25 MG SUPPOSITORY 0566721 HYDROCORTISONE NAEL (RECTAL ) Inactive HYDROXYZINE HCL 25 MG TAB 1 two times a day as needed for anxiety HYDROXYZINE HCL 25 MG TAB 189962 HYDROXYZINE HCL Inactive FLOMAX 0.4 MG CAPS 1 capsule in the evening for night time urination. FLOMAX 0.4 MG CAPS 727451 TAMSULOSIN HCL Inactive CLEMASTINE FUMARATE 1.34 MG ORAL TABS 1 tab PO BID CLEMASTINE FUMARATE 1.34 MG ORAL TABS 817688 CLEMASTINE FUMARATE Inactive POLY-IRON 150 150 MG CAPS 1 tab po bid POLY-IRON 150 150 MG CAPS POLYSACCHARIDE IRON COMPLEX Inactive NYSTATIN 880449 UNIT/GM CREA apply to rash TID PRN NYSTATIN 865988 UNIT/GM CREA 385846 NYSTATIN Inactive IYLDJPP-YHDYJGZAC-AIGB 167-83-8 MG TABS 1 tab po daily MCLZBBY-IISWZUYTD-HBOJ 167-83-8 MG TABS EGCTSWT-NLWCMGFLP-MRZI Inactive CHANTIX 1 MG TABS 1 twice a day CHANTIX 1 MG TABS VARENICLINE TARTRATE Inactive MS CONTIN 100 MG [id number] 1 by mouth twice a day MS CONTIN 100 MG [id number] MORPHINE SULFATE Inactive ENDOCET 10-325 MG TABS 1 by mouth twice a day ENDOCET 10-325 MG TABS 2226192 OXYCODONE-ACETAMINOPHEN Inactive HYDROXYZINE HCL 25 MG TAB take 1 every 4-6 hours as needed 07/01 HYDROXYZINE HCL 25 MG TAB 001477 HYDROXYZINE HCL Inactive ALPRAZOLAM 2 MG TABS 1 tablet by mouth three times daily as needed ALPRAZOLAM 2 MG TABS 791474 ALPRAZOLAM Inactive NEXIUM 40 MG CPDR 1 cap by mouth daily NEXIUM 40 MG CPDR 149800 ESOMEPRAZOLE MAGNESIUM Inactive Advance Directives Directive Description [...] Measured Encounters Code Encounter Date Provider Facility CPT-54947 Level 4 Est. Patient 10:10:03 CDT Wily Zhang [facility] CPT-06709 Level 3 Est. Patient 14:25:57 CDT Wily Zhang [facility] CPT-59632 Level 3 Est. Patient 09:51:37 RIP MACHINE OPERATOR Wily Gonzalez [facility] CPT-93890 Level 3 Est. Patient 11:07:48 CDT Wily Zhang [facility] CPT-21098 Level 3 Est. Patient 11:24:24 CDT Wily Gonzalez [facility] CPT-02350 Level 3 Est. Patient 15:19:54 RIP MACHINE OPERATOR Wily Zhang [facility] CPT-34228 Level 3 Est. Patient 10:04:45 CDT Wily Gonzalez [facility] CPT-16268 Level 3 Est. Patient 13:04:06 CDT Wily Gonzalez [facility] CPT-67530 Level 3 Est. Patient 12:23:04 CDT Wily Gonzalez [facility] CPT-31383 Level 3 Est. Patient 15:43:10 RIP MACHINE OPERATOR Wily Gonzalez [facility] CPT-68283 Level 3 Est. Patient 16:10:54 CDT Wily Gonzalez [facility] CPT-80553 Level 3 Est. Patient 19:50:51 CDT Wily Gonzalez [facility] CPT-30792 Level 3 Est. Patient 12:02:30 RIP MACHINE OPERATOR Wily Gonzalez [facility] CPT-36719 Level 3 Est. Patient 12:03:11 RIP MACHINE OPERATOR Wily Gonzalez [facility] CPT-66620 Level 3 Est. Patient 12:01:41 RIP MACHINE OPERATOR Wily Gonzalez [facility] CPT-80972 Level 3 Est. Patient 11:51:24 RIP MACHINE OPERATOR Wily Gonzalez [facility] CPT-50800 Level 3 Est. Patient 11:58:20 RIP MACHINE OPERATOR Wily Gonzaelz [facility] CPT-36765 Level 3 Est. Patient 08:31:36 RIP MACHINE OPERATOR Wily Gonzalez [facility] CPT-46230 Level 3 Est. Patient 21:57:36 CDT Wily Gonzalez [facility] CPT-19045 Level 3 Est. Patient 10:49:[address] [facility] CPT-08641 Level 3 Est. Patient 11:22:[address] [facility] CPT-18336 Level 3 Est. Patient 13:49:[address] [facility] CPT-45947 Level 3 Est. Patient 11:54:53 CDT Esvin [facility] CPT-65274 Level 3 Est. Patient 09:07:11 CDT Esvin PAULA [facility] CPT-50844 Level 3 Est. Patient 13:52:47 CDT Esvin Hudson [facility] CPT-75727 Level 3 Est. Patient 11:26:[address] [facility] CPT-04642 Level 3 Est. Patient 10:25:00 RIP MACHINE OPERATOR Esvin Hudson [facility] CPT-27973 Level 3 Est. Patient 11:39:11 RIP MACHINE OPERATOR Esvin Hudson [facility] CPT-73827 Level 3 Est. Patient 13:24:24 RIP MACHINE OPERATOR Esvin Hudson [facility] CPT-29499 Level 3 Est. Patient 10:26:13 RIP MACHINE OPERATOR Esvin PAULA [facility] CPT-31378 Level 3 Est. Patient 10:21:21 CDT Esvin Hudson [facility] CPT-68168 Level 3 Est. Patient 10:26:30 CDT Esvin Hudson [facility] CPT-02466 Level 3 Est. Patient 09:16:37 CDT Esvin Hudson [facility]-23011 Level 3 Est. Patient 09:06:58 CDT Esvin Hudson [facility] CPT-55054 Level 3 Est. Patient 10:05:29 CDT Esvin Tristan [facility] CPT-89394 Level 3 Est. Patient 10:38:45 CDT Esvin Tristan [facility] CPT-80864 Level 3 Est. Patient 10:09:45 CDT Esvin Hudson [facility] CPT-30385 Level 3 Est. Patient 09:26:37 CDT Esvin Hudson [facility] CPT-61309 Level 3 Est. Patient 10:34:42 RIP MACHINE OPERATOR Esvin Hudson [facility] CPT-87036 Level 3 Est. Patient 10:45:47 RIP MACHINE OPERATOR Esvin [place] [facility] CPT-36910 Level 3 Est. Patient 10:45:22 RIP MACHINE OPERATOR Esvin [facility] CPT-50879 Level 3 Est. Patient 14:18:30 RIP MACHINE OPERATOR Esvin [facility] CPT-17154 Level 3 Est. Patient 13:53:29 RIP MACHINE OPERATOR Esvin [facility] CPT-32554 Level 3 Est. Patient 10:34:11 CDT Esvin [facility] Procedures Code Procedure Name Date Entry Date Standard Description CPT-21722 Smoking Cessation counseling 10:10:03 CDT CPT-55113 Smoking Cessation counseling 14:25:57 CDT CPT-51872 Bone Density - XRAY USE ONLY 11:29:32 CDT CPT-81822 LS spine AP and Lat - XRAY USE ONLY 10:07:43 RIP MACHINE OPERATOR 10/26 CPT-52938 Venipuncture Draw Fee 09:51:16 RIP MACHINE OPERATOR CPT-93019 Smoking Cessation counseling 09:39:47 RIP MACHINE OPERATOR CPT-G0438 Initial Annual Wellness Exam 09:37:28 RIP MACHINE OPERATOR CPT-99327 Venipuncture Draw Fee 09:26:55 CDT CPT-34167 Venipuncture Draw Fee 11:55:52 CDT CPT-34316 Spec Collection and Handling Fee 09:16:37 CDT CPT-77192 Venipuncture Draw Fee 09:16:37 CDT
--- OUTSIDE RECORDS SUMMARY | 2018-02-26 15:17 | XMS REPORT | Clinical Summary ---
Author Author Admin, E Organization [facility] Address Unknown Phone Unavailable Allergies, Adverse Reactions, [...] Instructions Start Date Stop Date Generic Name [facility] Status Provider Patient Instruction CHANTIX 1 MG TABS 1 twice a day VARENICLINE TARTRATE 32077530616 No Longer Active Wily Gonzalez DO Active RAUL-MAG 500-250 MG ORAL TABS Take one by mouth daily CALCIUM- MAGNESIUM 09497918773 Active Wily Gonzalez DO Active FOSAMAX 70 MG TABS 1 po qweek. Take 30min prior to first food/drink. Avoid lying down x 1 hour. ALENDRONATE SODIUM 07716735823 Active Rose Bang Active CALCIUM 600 MG ORAL TABS 1 po q day CALCIUM 45534545854 Active Rose Bang Active TRIAMCINOLONE ACETONIDE 0.1 % CREA Apply to affected area 3 times daily for up to 2 weeks TRIAMCINOLONE ACETONIDE 08452082542 Active Wily Gonzalez DO Active [id number] 167-83-8 MG TABS 1 tab po daily [id number] 64508014560 No Longer Active Wily Gonzalez DO Active NYSTATIN 134216 UNIT/GM CREA apply to rash TID PRN NYSTATIN 37248424332 No Longer Active Wily Gonzalez DO Active POLY-IRON 150 150 MG CAPS 1 tab po bid POLYSACCHARIDE IRON COMPLEX 19270812083 No Longer Active Wily Gonzalez DO Active FLONASE ALLERGY RELIEF 50 MCG/ACT NASAL SUSP 2 sprays each nostril every day FLUTICASONE PROPIONATE 46791039848 Active Rose Bang Active CLEMASTINE FUMARATE 1.34 MG ORAL TABS 1 tab PO BID CLEMASTINE FUMARATE 72386848179 No Longer Active Wily Gonzalez DO Active FLOMAX 0.4 MG CAPS 1 capsule in the evening for night time urination. TAMSULOSIN HCL 76024971733 No Longer Active Wily Gonzalez DO Active PROTONIX 40 MG TBEC 1 po daily PANTOPRAZOLE SODIUM 71924680921 Active Lisa Berkowitz Active HYDROXYZINE HCL 25 MG TAB 1 two times a day as needed for anxiety HYDROXYZINE HCL 09275797638 No Longer Active Wily Gonzalez DO Active ANUSOL-HC 25 MG SUPPOSITORY 1 rectally every 12 hours for irritation HYDROCORTISONE NAEL (RECTAL) 15552756729 No Longer Active Wily Gonzalez DO Active HYDROXYZINE HCL 25 MG TABS Take one (1) tablet by mouth twice a day HYDROXYZINE HCL 45895392052 No Longer Active Wily Gonzalez DO Active ZIAC 2.5-6.25 MG TAB 1 tablet daily for high blood pressure 10/27 BISOPROLOL-HCTZ 96030658849 No Longer Active Wily Gonzalez DO Active ZIAC 2.5-6.25 MG TAB 1 tablet every morning for high blood pressure BISOPROLOL-HCTZ 50818166346 No Longer Active Wily Gonzalez DO Active AMOXICILLIN 500 MG CAPS Take one (1) tablet by mouth three times a day 05/05 AMOXICILLIN 56862547611 No Longer Active Wily Gonzalez DO Active MORPHINE SULFATE ER 100 MG CR-TABS Take one (1) tablet by mouth twice a day MORPHINE SULFATE 59287065407 No Longer Active Wily Gonzalez DO Active MORPHINE SULFATE ER 100 MG [id number] 1 capsule twice daily for chronic pain MORPHINE SULFATE 49334243969 Active Rose Bang Active CIALIS 10 MG TABS 1 every 72 hours as needed TADALAFIL 52165482981 No Longer Active Esvin PAULA Active FLONASE 50 MCG/ACT SUSP 2 SPRAY EACH NARE DAILY FLUTICASONE PROPIONATE 01662759979 No Longer Active Esvin PAULA Active CYCLOBENZAPRINE HCL 10 MG TABS Take one (1) tablet by mouth three times a day CYCLOBENZAPRINE HCL 52076058416 Active Lisa Berkowitz Active OPANA ER (CRUSH RESISTANT) 40 MG [id number] Take one (1) tablet by mouth twice a day OXYMORPHONE HCL 50358081732 No Longer Active Esvin PAULA Active PROAIR HFA 108 (90 BASE) MCG/ACT AERS 2 puffs every four hours as needed ALBUTEROL SULFATE 83847172009 No Longer Active Esvin PAULA Active CLEARLAX POWD 17gm q day prn constipation POLYETHYLENE GLYCOL 3350 53823932598 Active Wily Gonzalez DO Active MORPHINE SULFATE ER 100 MG [id number] Take one (1) tablet by mouth twice a day MORPHINE SULFATE 76056313195 No Longer Active Evsin PAULA Active FLEXERIL 10 MG TAB 1 tablet by mouth 3 times daily as needed CYCLOBENZAPRINE HCL 04874016347 No Longer Active Esvin PAULA Active CELEBREX 200 MG CAPS 1 tablet by mouth twice daily with meals CELECOXIB 52720584808 No Longer Active Esvin PAULA Active NEXIUM 40 MG CPDR 1 cap daily ESOMEPRAZOLE MAGNESIUM 53268600278 No Longer Active Esvin PAULA Active MOBIC 15 MG TABS 1 tab daily MELOXICAM 21697292615 No Longer Active Esvin PAULA Active LISINOPRIL 20 MG TABS Take 1 tablet by mouth daily LISINOPRIL 01671174481 No Longer Active Esvin PAULA Active DICLOFENAC SODIUM 50 MG TBEC 1 tablet by mouth four times daily DICLOFENAC SODIUM 62650274256 No Longer Active Paula Cooney RN Active VERAMYST 27.5 MCG/SPRAY SUSP 2 spray each nare daily FLUTICASONE FUROATE 38078289308 No Longer Active Megan Vargas RN Active ENDOCET 10-325 MG TABS Take one (1) tablet by mouth three times a day OXYCODONE-ACETAMINOPHEN 24006319881 Active Rose Bang Active ALPRAZOLAM 2 MG TABS Take one (1) tablet by mouth three times a day ALPRAZOLAM 37164170757 Active Rose Bang Active NEXIUM 40 MG CPDR 1 cap by mouth daily ESOMEPRAZOLE MAGNESIUM 77210080946 No Longer Active Esvin PAULA Active ALPRAZOLAM 2 MG TABS 1 tablet by mouth three times daily as needed ALPRAZOLAM 55202360545 No Longer Active Esvin PAULA Active HYDROXYZINE HCL 25 MG TAB take 1 every 4-6 hours as needed 07/01 HYDROXYZINE HCL 46965297150 No Longer Active Esvin PAULA Active ENDOCET 10-325 MG TABS 1 by mouth twice a day OXYCODONE-ACETAMINOPHEN 80516195123 No Longer Active Esvin PAULA Active MS CONTIN 100 MG [id number] 1 by mouth twice a day MORPHINE SULFATE 62293122107 No Longer Active Esvin PAULA Active SUDAFED 30 MG TAB 1-2 every 4-6 hours as needed PSEUDOEPHEDRINE HCL 38259531231 Active Lisa Berkowitz Active VERAMYST 27.5 MCG/SPRAY SUSP 2 spray each nare daily VERAMYST 27.5 MCG/SPRAY SUSP FLUTICASONE FUROATE Inactive DICLOFENAC SODIUM 50 MG TBEC 1 tablet by mouth four times daily DICLOFENAC SODIUM 50 MG TBEC 656994 DICLOFENAC SODIUM Inactive LISINOPRIL 20 MG TABS Take 1 tablet by mouth daily LISINOPRIL 20 MG TABS 071587 LISINOPRIL Inactive MOBIC 15 MG TABS 1 tab daily MOBIC 15 MG TABS 988398 MELOXICAM Inactive NEXIUM 40 MG CPDR 1 cap daily NEXIUM 40 MG CPDR 043783 ESOMEPRAZOLE MAGNESIUM Inactive CELEBREX 200 MG CAPS 1 tablet by mouth twice daily with meals CELEBREX 200 MG CAPS 237560 CELECOXIB Inactive FLEXERIL 10 MG TAB 1 tablet by mouth 3 times daily as needed FLEXERIL 10 MG TAB CYCLOBENZAPRINE HCL Inactive PROAIR HFA 108 (90 BASE) MCG/ACT AERS 2 puffs every four hours as needed PROAIR HFA 108 (90 BASE) MCG/ACT AERS ALBUTEROL SULFATE Inactive FLONASE 50 MCG/ACT SUSP 2 SPRAY EACH NARE DAILY FLONASE 50 MCG/ACT SUSP 0124044 FLUTICASONE PROPIONATE Inactive CIALIS 10 MG TABS 1 every 72 hours as needed CIALIS 10 MG TABS TADALAFIL Inactive MORPHINE SULFATE ER 100 MG CR-TABS Take one (1) tablet by mouth twice a day MORPHINE SULFATE ER 100 MG CR-TABS MORPHINE SULFATE Inactive AMOXICILLIN 500 MG CAPS Take one (1) tablet by mouth three times a day 05/05 AMOXICILLIN 500 MG CAPS 784531 AMOXICILLIN Inactive ZIAC 2.5-6.25 MG TAB 1 tablet every morning for high blood pressure ZIAC 2.5-6.25 MG TAB 636992 BISOPROLOL-HCTZ Inactive ZIAC 2.5-6.25 MG TAB 1 tablet daily for high blood pressure 10/27 ZIAC 2.5-6.25 MG TAB 349547 BISOPROLOL-HCTZ Inactive HYDROXYZINE HCL 25 MG TABS Take one (1) tablet by mouth twice a day HYDROXYZINE HCL 25 MG TABS 244113 HYDROXYZINE HCL Inactive ANUSOL-HC 25 MG SUPPOSITORY 1 rectally every 12 hours for irritation ANUSOL-HC 25 MG SUPPOSITORY 8143453 HYDROCORTISONE NAEL (RECTAL ) Inactive HYDROXYZINE HCL 25 MG TAB 1 two times a day as needed for anxiety HYDROXYZINE HCL 25 MG TAB 639062 HYDROXYZINE HCL Inactive FLOMAX 0.4 MG CAPS 1 capsule in the evening for night time urination. FLOMAX 0.4 MG CAPS 428325 TAMSULOSIN HCL Inactive CLEMASTINE FUMARATE 1.34 MG ORAL TABS 1 tab PO BID CLEMASTINE FUMARATE 1.34 MG ORAL TABS 174129 CLEMASTINE FUMARATE Inactive POLY-IRON 150 150 MG CAPS 1 tab po bid POLY-IRON 150 150 MG CAPS 974173 POLYSACCHARIDE IRON COMPLEX Inactive NYSTATIN 381884 UNIT/GM CREA apply to rash TID PRN NYSTATIN 667090 UNIT/GM CREA 148576 NYSTATIN Inactive RGCTYKO-UBFEPRWNO-IWYI 167-83-8 MG TABS 1 tab po daily [id number] 167-83-8 MG TABS 00645286464 CALCIUM-MAGNESIUM- ZINC Inactive CHANTIX 1 MG TABS 1 twice a day CHANTIX 1 MG TABS VARENICLINE TARTRATE Inactive MS CONTIN 100 MG [id number]-AEV 1 by mouth twice a day MS CONTIN 100 MG [id number] MORPHINE SULFATE Inactive ENDOCET 10-325 MG TABS 1 by mouth twice a day ENDOCET 10-325 MG TABS 2114815 OXYCODONE-ACETAMINOPHEN Inactive HYDROXYZINE HCL 25 MG TAB take 1 every 4-6 hours as needed 07/01 HYDROXYZINE HCL 25 MG TAB 350389 HYDROXYZINE HCL Inactive ALPRAZOLAM 2 MG TABS 1 tablet by mouth three times daily as needed ALPRAZOLAM 2 MG TABS 696512 ALPRAZOLAM Inactive NEXIUM 40 MG CPDR 1 cap by mouth daily NEXIUM 40 MG CPDR 726692 ESOMEPRAZOLE MAGNESIUM Inactive Advance Directives Directive Description [...] Measured Encounters Code Encounter Date Provider Facility CPT-43307 Level 4 Est. Patient 10:10:03 CDT Wily Gonzalez [facility] CPT-08831 Level 3 Est. Patient 14:25:57 CDT Wily Gonzalez [facility] CPT-81865 Level 3 Est. Patient 09:51:37 [employer] Wily Gonzalez [facility] CPT-79078 Level 3 Est. Patient 11:07:48 CDT Wily Gonzalez [facility] CPT-84100 Level 3 Est. Patient 11:24:24 CDT Wily Zhang [facility] CPT-64918 Level 3 Est. Patient 15:19:54 [employer] Wily Gonzalez [facility] CPT-30284 Level 3 Est. Patient 10:04:[address] [facility] CPT-76169 Level 3 Est. Patient 13:04:06 CDT Wily Zhang [facility] CPT-61658 Level 3 Est. Patient 12:23:[address] [facility] CPT-65702 Level 3 Est. Patient 15:43:10 [employer] Wily Gonzalez [facility] CPT-25983 Level 3 Est. Patient 16:10:[address] [facility] CPT-20345 Level 3 Est. Patient 19:50:[address] [facility] CPT-66305 Level 3 Est. Patient 12:02:30 [employer] Wily [facility] CPT-38780 Level 3 Est. Patient 12:03:11 [employer] Wily Gonzalez [facility] CPT-17753 Level 3 Est. Patient 12:01:41 [employer] [address] [facility] CPT-21967 Level 3 Est. Patient 11:51:24 [employer] W[address] [facility] CPT-78383 Level 3 Est. Patient 11:58:20 [employer] [address] [facility] CPT-03180 Level 3 Est. Patient 08:31:36 [employer] Wily Gonzalez [facility] CPT-87895 Level 3 Est. Patient 21:57:[address] [facility] CPT-38801 Level 3 Est. Patient 10:49:58 CDT Esvin PAULA [facility] CPT-01889 Level 3 Est. Patient 11:22:52 CDT Esvin PAULA [facility] CPT-64080 Level 3 Est. Patient 13:49:41 CDT Esvin PAULA [facility] CPT-67993 Level 3 Est. Patient 11:54:53 CDT Esvin PAULA [facility] CPT-08603 Level 3 Est. Patient 09:07:11 CDT Esvin PAULA [facility] CPT-38595 Level 3 Est. Patient 13:52:47 CDT Esvin PAULA [facility] CPT-11697 Level 3 Est. Patient 11:26:46 CDT Esvin PAULA [facility] CPT-38490 Level 3 Est. Patient 10:25:00 [employer] Esvin PAULA [facility] CPT-84589 Level 3 Est. Patient 11:39:11 [employer] Esvin [place] CHAI [facility] CPT-61064 Level 3 Est. Patient 13:24:24 [employer]ER Esvin Tristan PA [facility]-17440 Level 3 Est. Patient 10:26:13 [employer]ER Esvin Tristan PA [facility] CPT-34519 Level 3 Est. Patient 10:21:21 CDT Esvin [place] CHAI [facility] CPT-03801 Level 3 Est. Patient 10:26:30 CDT Esvin [place] PA [facility]-52140 Level 3 Est. Patient 09:16:37 CDT Esvin [place] PA [facility]-57599 Level 3 Est. Patient 09:06:58 CDT Esvin [place] PA [facility] CPT-38313 Level 3 Est. Patient 10:05:29 CDT Esvin [place] [facility] CPT-57051 Level 3 Est. Patient 10:38:45 CDT Esvin [place] PA [facility]-83847 Level 3 Est. Patient 10:09:45 CDT Esvin Tristan PA [facility]-23819 Level 3 Est. Patient 09:26:37 CDT Esvin [place] PA [facility]-47877 Level 3 Est. Patient 10:34:42 [employer] Esvin Tristan PA [facility] CPT-38667 Level 3 Est. Patient 10:45:47 [employer] Esvin [place] PA [facility]-94566 Level 3 Est. Patient 10:45:22 [employer] Esvin PAULA [facility] CPT-37832 Level 3 Est. Patient 14:18:30 [employer] Esvin Priestner [facility] CPT-95202 Level 3 Est. Patient 13:53:29 [employer] Esvin Priestner [facility] CPT-82845 Level 3 Est. Patient 10:34:11 CDT Esvin Priestner [facility] Procedures Code Procedure Name Date Entry Date Standard Description CPT-57599 Smoking Cessation counseling 10:10:03 CDT CPT-48436 Smoking Cessation counseling 14:25:57 CDT CPT-51013 Bone Density - XRAY USE ONLY 11:29:32 CDT CPT-34734 LS spine AP and Lat - XRAY USE ONLY 10:07:43 [employer] 10/26 CPT-75201 Venipuncture Draw Fee 09:51:16 [employer] CPT-98645 Smoking Cessation counseling 09:39:47 [employer] CPT-G0438 Initial Annual Wellness Exam 09:37:28 [employer] CPT-11137 Venipuncture Draw Fee 09:26:55 CDT CPT-84419 Venipuncture Draw Fee 11:55:52 CDT CPT-43816 Spec Collection and Handling Fee 09:16:37 CDT CPT-61935 Venipuncture Draw Fee 09:16:37 CDT
--- OUTSIDE RECORDS SUMMARY | 2018-02-26 15:21 | XMS REPORT | Clinical Summary ---
Author Author Admin, E Organization [employer] Address Unknown Phone Unavailable Allergies, Adverse Reactions, [...] medical examination at a health care facility Tinea corporis ICD-110.5 Inactive Wily Gonzalez DO [...] sprays each nostril every day FLUTICASONE PROPIONATE 24755975732 Active Wily Gonzalez DO Active CLEMASTINE FUMARATE 1.34 MG ORAL TABS 1 tab PO BID CLEMASTINE FUMARATE 83388009861 No Longer Active Wily Gonzalez DO Active FLOMAX 0.4 MG CAPS 1 capsule in the evening for night time urination. TAMSULOSIN HCL 42615725402 No Longer Active Wily Gonzalez DO Active PROTONIX 40 MG TBEC 1 po daily PANTOPRAZOLE SODIUM 77987499713 Active Wily Gonzalez DO Active HYDROXYZINE HCL 25 MG TAB 1 two times a day as needed for anxiety HYDROXYZINE HCL 20425510841 No Longer Active Wily Gonzalez DO Active ANUSOL-HC 25 MG SUPPOSITORY 1 rectally every 12 hours for irritation HYDROCORTISONE NAEL (RECTAL) 31696624952 No Longer Active Wily Gonzalez DO Active HYDROXYZINE HCL 25 MG TABS Take one (1) tablet by mouth twice a day HYDROXYZINE HCL 10467719218 No Longer Active Wily Gonazlez DO Active ZIAC 2.5-6.25 MG TAB 1 tablet daily for high blood pressure 10/27 BISOPROLOL-HCTZ 10254289132 No Longer Active Wily Gonzalez DO Active [id number]-LYFA 167-83-8 MG TABS 1 tab po daily CALCIUM -MAGNESIUM-ZINC 97799943119 Active Wily Gonzalez DO Active NYSTATIN 328305 UNIT/GM CREA apply to rash TID PRN NYSTATIN 83829992426 Active Wily Gonzalez DO Active ZIAC 2.5-6.25 MG TAB 1 tablet every morning for high blood pressure BISOPROLOL-HCTZ 65229801501 No Longer Active Wily Gonzalez DO Active AMOXICILLIN 500 MG CAPS Take one (1) tablet by mouth three times a day 05/05 AMOXICILLIN 41468878525 No Longer Active Wily Gonzalez DO Active MORPHINE SULFATE ER 100 MG CR-TABS Take one (1) tablet by mouth twice a day MORPHINE SULFATE 83174515059 No Longer Active Wily Gonzalez DO Active MORPHINE SULFATE ER 100 MG [id number] 1 capsule twice daily for chronic pain MORPHINE SULFATE 49084049206 Active Marylou Melissa RPT,RMA Active CIALIS 10 MG TABS 1 every 72 hours as needed TADALAFIL 50876105388 No Longer Active Esvin PAULA Active FLONASE 50 MCG/ACT SUSP 2 SPRAY EACH NARE DAILY FLUTICASONE PROPIONATE 93036627009 No Longer Active Esvin PAULA Active CYCLOBENZAPRINE HCL 10 MG TABS Take one (1) tablet by mouth three times a day CYCLOBENZAPRINE HCL 07776171346 Active Wily Gonzalez DO Active OPANA ER (CRUSH RESISTANT) 40 MG [id number] Take one (1) tablet by mouth twice a day OXYMORPHONE HCL 28952585973 No Longer Active Esvin PAULA Active POLY-IRON 150 150 MG CAPS 1 tab po bid POLYSACCHARIDE IRON COMPLEX 79748041473 Active Wily Gonzalez DO Active PROAIR HFA 108 (90 BASE) MCG/ACT AERS 2 puffs every four hours as needed ALBUTEROL SULFATE 73847288757 No Longer Active Esvin PAULA Active CLEARLAX POWD 17gm q day prn constipation POLYETHYLENE GLYCOL 3350 04211268247 Active Kaylen Leigh MA Active MORPHINE SULFATE ER 100 MG [id number] Take one (1) tablet by mouth twice a day MORPHINE SULFATE 35349850081 No Longer Active Esvin PAULA Active FLEXERIL 10 MG TAB 1 tablet by mouth 3 times daily as needed CYCLOBENZAPRINE HCL 53078465379 No Longer Active Esvin PAULA Active CELEBREX 200 MG CAPS 1 tablet by mouth twice daily with meals CELECOXIB 42459377777 No Longer Active Esvin PAULA Active NEXIUM 40 MG CPDR 1 cap daily ESOMEPRAZOLE MAGNESIUM 30735145722 No Longer Active Esvin PAULA Active MOBIC 15 MG TABS 1 tab daily MELOXICAM 37233939605 No Longer Active Esvin PAULA Active LISINOPRIL 20 MG TABS Take 1 tablet by mouth daily LISINOPRIL 06610858200 No Longer Active Esvin PAULA Active DICLOFENAC SODIUM 50 MG TBEC 1 tablet by mouth four times daily DICLOFENAC SODIUM 51843398136 No Longer Active Paula Cooney RN Active VERAMYST 27.5 MCG/SPRAY SUSP 2 spray each nare daily FLUTICASONE FUROATE 92491260168 No Longer Active Megan Vargas RN Active ENDOCET 10-325 MG TABS Take one (1) tablet by mouth three times a day OXYCODONE-ACETAMINOPHEN 66752114073 Active Marylou Melissa RPT,RMA Active ALPRAZOLAM 2 MG TABS Take one (1) tablet by mouth three times a day ALPRAZOLAM 54446127002 Active Kaylen Leigh MA Active NEXIUM 40 MG CPDR 1 cap by mouth daily ESOMEPRAZOLE MAGNESIUM 21133516289 No Longer Active Esvin PAULA Active ALPRAZOLAM 2 MG TABS 1 tablet by mouth three times daily as needed ALPRAZOLAM 30116775970 No Longer Active Esvin PAULA Active HYDROXYZINE HCL 25 MG TAB take 1 every 4-6 hours as needed 07/01 HYDROXYZINE HCL 91309069353 No Longer Active Esvin PAULA Active ENDOCET 10-325 MG TABS 1 by mouth twice a day OXYCODONE-ACETAMINOPHEN 22322780288 No Longer Active Esvin PAULA Active MS CONTIN 100 MG [id number] 1 by mouth twice a day MORPHINE SULFATE 36523958001 No Longer Active Esvin PAULA Active SUDAFED 30 MG TAB 1-2 every 4-6 hours as needed PSEUDOEPHEDRINE HCL 33690889804 Active Marylou Melissa RPT,RMA Active VERAMYST 27.5 MCG/SPRAY SUSP 2 spray each nare daily VERAMYST 27.5 MCG/SPRAY SUSP FLUTICASONE FUROATE Inactive DICLOFENAC SODIUM 50 MG TBEC 1 tablet by mouth four times daily DICLOFENAC SODIUM 50 MG TBEC 229058 DICLOFENAC SODIUM Inactive LISINOPRIL 20 MG TABS Take 1 tablet by mouth daily LISINOPRIL 20 MG TABS 445438 LISINOPRIL Inactive MOBIC 15 MG TABS 1 tab daily MOBIC 15 MG TABS 166741 MELOXICAM Inactive NEXIUM 40 MG CPDR 1 cap daily NEXIUM 40 MG CPDR 099894 ESOMEPRAZOLE MAGNESIUM Inactive CELEBREX 200 MG CAPS 1 tablet by mouth twice daily with meals CELEBREX 200 MG CAPS 763576 CELECOXIB Inactive FLEXERIL 10 MG TAB 1 [...] a day 05/05 AMOXICILLIN 500 MG CAPS 493030 AMOXICILLIN Inactive ZIAC 2.5-6.25 MG TAB 1 tablet every morning for high blood pressure ZIAC 2.5-6.25 MG TAB 050632 BISOPROLOL-HCTZ Inactive ZIAC 2.5-6.25 MG TAB 1 tablet daily for high blood pressure 10/27 ZIAC 2.5-6.25 MG TAB 843038 BISOPROLOL-HCTZ Inactive HYDROXYZINE HCL 25 MG TABS Take one (1) tablet by mouth twice a day HYDROXYZINE HCL 25 MG TABS 376949 HYDROXYZINE HCL Inactive ANUSOL-HC 25 MG SUPPOSITORY 1 rectally every 12 hours for irritation ANUSOL-HC 25 MG SUPPOSITORY 2856730 HYDROCORTISONE NAEL (RECTAL ) Inactive HYDROXYZINE HCL 25 MG TAB 1 two times a day as needed for anxiety HYDROXYZINE HCL 25 MG TAB 881276 HYDROXYZINE HCL Inactive FLOMAX 0.4 MG CAPS 1 capsule in the evening for night time urination. FLOMAX 0.4 MG CAPS 469942 TAMSULOSIN HCL Inactive CLEMASTINE FUMARATE 1.34 MG ORAL TABS 1 tab PO BID CLEMASTINE FUMARATE 1.34 MG ORAL TABS 023698 CLEMASTINE FUMARATE Inactive MS CONTIN 100 MG [id number] 1 by mouth twice a day MS CONTIN 100 MG [id number]-[id number] MORPHINE SULFATE Inactive ENDOCET 10-325 MG TABS 1 by mouth twice a day ENDOCET 10-325 MG TABS 7333579 OXYCODONE-ACETAMINOPHEN Inactive HYDROXYZINE HCL 25 MG TAB take 1 every 4-6 hours as needed 07/01 HYDROXYZINE HCL 25 MG TAB 580333 HYDROXYZINE HCL Inactive ALPRAZOLAM 2 MG TABS 1 tablet by mouth three times daily as needed ALPRAZOLAM 2 MG TABS 057341 ALPRAZOLAM Inactive NEXIUM 40 MG CPDR 1 cap by mouth daily NEXIUM 40 MG CPDR 635502 ESOMEPRAZOLE MAGNESIUM Inactive Advance Directives Directive Description [...] ... - Chemistry sodium, serum 140 mmol/L 890-494 6138/03/25 carbon dioxide, venous blood 31.3 mmol/L 21.0-32.0 potassium, serum 4.0 mmol/L 3.5-5.2 chloride, serum 101 mmol/L 98-107 blood glucose 96 mg/dL 65-110 urea nitrogen, blood 7 mg/dL 7-18 creatinine, serum 0.94 mg/dL 0.55-1.30 alanine aminotransferase (SGPT), serum 23 U/L 12-78 aspartate aminotransferase (SGOT), serum 21 U/L 15-37 calcium, serum 8.9 mg/dL 8.5-10.1 bilirubin, serum, total 0.30 mg/dL 0.00-1.00 cholesterol, serum 169 mg/dL 538-080 9631/03/25 triglyceride, serum, fasting 143 mg/dL 30-200 HDL [...] 5.0-8.5 Encounters Code Encounter Date Provider Facility CPT-63731 Level 3 Est. Patient 11:24:24 CDT Wily Zhang [facility] CPT-20457 Level 3 Est. Patient 15:19:54 MICROBIOLOGY TECHNICIAN Wily Zhang [facility] CPT-62217 Level 3 Est. Patient 10:04:45 CDT Wily Zhang [facility] CPT-50062 Level 3 Est. Patient 13:04:06 CDT Wily Zhang [facility] CPT-40112 Level 3 Est. Patient 12:23:04 CDT Wily Zhang [facility] CPT-71564 Level 3 Est. Patient 15:43:10 MICROBIOLOGY TECHNICIAN Wily Gonzalez [facility] CPT-94060 Level 3 Est. Patient 16:10:54 CDT Wily Gonzalez [facility] CPT-41407 Level 3 Est. Patient 19:50:51 CDT Wily Gonzalez [facility] CPT-59942 Level 3 Est. Patient 12:02:30 MICROBIOLOGY TECHNICIAN Wily Gonzalez [facility] CPT-58822 Level 3 Est. Patient 12:03:11 MICROBIOLOGY TECHNICIAN Wily Gonzalez [facility] CPT-78026 Level 3 Est. Patient 12:01:41 MICROBIOLOGY TECHNICIAN Wily Gonzalez [facility] CPT-25014 Level 3 Est. Patient 11:51:24 MICROBIOLOGY TECHNICIAN Wily Gonzalez [facility] CPT-07286 Level 3 Est. Patient 11:58:20 MICROBIOLOGY TECHNICIAN Wily Gonzalez [facility] CPT-71369 Level 3 Est. Patient 08:31:36 MICROBIOLOGY TECHNICIAN Wily Gonzalez [facility] CPT-65302 Level 3 Est. Patient 21:57:36 CDT Wily Gonzalez [facility] CPT-64421 Level 3 Est. Patient 10:49:58 CDT Esvin PAULA [facility] CPT-54450 Level 3 Est. Patient 11:22:52 CDT Esvin Hudson [facility] CPT-51683 Level 3 Est. Patient 13:49:41 CDT Esvin PAULA [facility] CPT-43212 Level 3 Est. Patient 11:54:53 CDT Esvin PAULA [facility] CPT-72611 Level 3 Est. Patient 09:07:11 CDT Esvin Hudson [facility] CPT-43243 Level 3 Est. Patient 13:52:47 CDT Esvin PAULA [facility] CPT-95268 Level 3 Est. Patient 11:26:46 CDT Esvin Hudson CHAI [facility] CPT-72479 Level 3 Est. Patient 10:25:00 MICROBIOLOGY TECHNICIAN Esvin PAULA [facility] CPT-05526 Level 3 Est. Patient 11:39:11 MICROBIOLOGY TECHNICIAN Esvin PAULA [facility] CPT-11949 Level 3 Est. Patient 13:24:24 MICROBIOLOGY TECHNICIAN Esvin PAULA [facility] CPT-26562 Level 3 Est. Patient 10:26:13 MICROBIOLOGY TECHNICIAN Esvin PAULA [facility] CPT-73571 Level 3 Est. Patient 10:21:21 CDT Esvin PAULA [facility] CPT-44372 Level 3 Est. Patient 10:26:30 CDT Esvin Hudson CHAI [facility] CPT-13053 Level 3 Est. Patient 09:16:37 CDT Esvin Hudson CHAI [facility] CPT-61022 Level 3 Est. Patient 09:06:58 CDT Esvin PAULA [facility] CPT-78805 Level 3 Est. Patient 10:05:29 CDT Esvin PAULA [facility] CPT-73782 Level 3 Est. Patient 10:38:45 CDT Esvin Hudson [facility] CPT-11231 Level 3 Est. Patient 10:09:45 CDT Esvin Hudson [facility] CPT-72502 Level 3 Est. Patient 09:26:37 CDT Esvin PAULA [facility] CPT-48176 Level 3 Est. Patient 10:34:42 MICROBIOLOGY TECHNICIAN Esvin Hudson CHAI [facility] CPT-74898 Level 3 Est. Patient 10:45:47 MICROBIOLOGY TECHNICIAN Esvin Hudson [facility] CPT-19733 Level 3 Est. Patient 10:45:22 MICROBIOLOGY TECHNICIAN Esvin Hudson [facility] CPT-46354 Level 3 Est. Patient 14:18:30 MICROBIOLOGY TECHNICIAN Esvin Tristan [facility] CPT-39909 Level 3 Est. Patient 13:53:29 MICROBIOLOGY TECHNICIAN Esvin Tristan [facility] CPT-37214 Level 3 Est. Patient 10:34:11 CDT Esvin [facility] Procedures Code Procedure Name Date Entry Date Standard Description CPT-87279 Venipuncture Draw Fee 09:26:55 CDT CPT-46120 Venipuncture Draw Fee 11:55:52 CDT CPT-89343 Spec Collection and Handling Fee 09:16:37 CDT CPT-85046 Venipuncture Draw Fee 09:16:37 CDT
--- OUTSIDE RECORDS SUMMARY | 2018-02-26 15:24 | XMS REPORT | Clinical Summary ---
Author Author Admin, E Organization [employer] Address Unknown Phone Unavailable Allergies, Adverse Reactions, Alerts Allergy Name Reaction Description Start Date Severity Status Provider NEURONTIN makes him paranoid Critical Active Wily Gonzlaez DO LIDODERM preload Critical Active Paula Cooney [...] for up to 2 weeks TRIAMCINOLONE ACETONIDE 86082539196 Active Wily Gonzalez DO Active [id number]-[id number]-WSZC 167-83-8 MG TABS 1 tab po daily [id number] 47436039445 No Longer Active Wily Gonzalez DO Active NYSTATIN 374791 UNIT/GM CREA apply to rash TID PRN NYSTATIN 01260966824 No Longer Active Wily Gonzalez DO Active POLY-IRON 150 150 MG CAPS 1 tab po bid POLYSACCHARIDE IRON COMPLEX 37399167778 No Longer Active Wily Gonzalez DO Active FLONASE ALLERGY RELIEF 50 MCG/ACT NASAL SUSP 2 sprays each nostril every day FLUTICASONE PROPIONATE 00996878165 Active Jodi Lucas APRN Active CLEMASTINE FUMARATE 1.34 MG ORAL TABS 1 tab PO BID CLEMASTINE FUMARATE 17427776730 No Longer Active Wily Gonzalez DO Active FLOMAX 0.4 MG CAPS 1 capsule in the evening for night time urination. TAMSULOSIN HCL 76454054868 No Longer Active Wily Gonzalez DO Active PROTONIX 40 MG TBEC 1 po daily PANTOPRAZOLE SODIUM 68613452828 Active Agnieszka Yeung Active HYDROXYZINE HCL 25 MG TAB 1 two times a day as needed for anxiety HYDROXYZINE HCL 81514974001 No Longer Active Wily Gonzalez DO Active ANUSOL-HC 25 MG SUPPOSITORY 1 rectally every 12 hours for irritation HYDROCORTISONE NAEL (RECTAL) 51157681918 No Longer Active Wily Gonzalez DO Active HYDROXYZINE HCL 25 MG TABS Take one (1) tablet by mouth twice a day HYDROXYZINE HCL 05304620922 No Longer Active Wily Gonzalez DO Active ZIAC 2.5-6.25 MG TAB 1 tablet daily for high blood pressure 10/27 BISOPROLOL-HCTZ 07891328773 No Longer Active Wily Gonzalez DO Active ZIAC 2.5-6.25 MG TAB 1 tablet every morning for high blood pressure BISOPROLOL-HCTZ 59827334655 No Longer Active Wily Gonzalez DO Active AMOXICILLIN 500 MG CAPS Take one (1) tablet by mouth three times a day 05/05 AMOXICILLIN 28233601232 No Longer Active Wily Gonzalez DO Active MORPHINE SULFATE ER 100 MG CR-TABS Take one (1) tablet by mouth twice a day MORPHINE SULFATE 65313347250 No Longer Active Wily Gonzalez DO Active MORPHINE SULFATE ER 100 MG [id number] 1 capsule twice daily for chronic pain MORPHINE SULFATE 79433583671 Active Lisa Berkowitz Active CIALIS 10 MG TABS 1 every 72 hours as needed TADALAFIL 62367990148 No Longer Active Esvin PAULA Active FLONASE 50 MCG/ACT SUSP 2 SPRAY EACH NARE DAILY FLUTICASONE PROPIONATE 93158932079 No Longer Active Esvin PAULA Active CYCLOBENZAPRINE HCL 10 MG TABS Take one (1) tablet by mouth three times a day CYCLOBENZAPRINE HCL 15229004205 Active Agnieszka Yeung Active OPANA ER (CRUSH RESISTANT) 40 MG [id number] Take one (1) tablet by mouth twice a day OXYMORPHONE HCL 18346104057 No Longer Active Esvin PAULA Active PROAIR HFA 108 (90 BASE) MCG/ACT AERS 2 puffs every four hours as needed ALBUTEROL SULFATE 15624185723 No Longer Active Esvin PAULA Active CLEARLAX POWD 17gm q day prn constipation POLYETHYLENE GLYCOL 3350 85363719680 Active Kaylen Leigh MA Active MORPHINE SULFATE ER 100 MG [id number] Take one (1) tablet by mouth twice a day MORPHINE SULFATE 83675392263 No Longer Active Esvin PAULA Active FLEXERIL 10 MG TAB 1 tablet by mouth 3 times daily as needed CYCLOBENZAPRINE HCL 70868888469 No Longer Active Esvin PAULA Active CELEBREX 200 MG CAPS 1 tablet by mouth twice daily with meals CELECOXIB 84738673230 No Longer Active Esvin PAULA Active NEXIUM 40 MG CPDR 1 cap daily ESOMEPRAZOLE MAGNESIUM 31668422217 No Longer Active Esvin PAULA Active MOBIC 15 MG TABS 1 tab daily MELOXICAM 89275423373 No Longer Active Esvin PAULA Active LISINOPRIL 20 MG TABS Take 1 tablet by mouth daily LISINOPRIL 16301713097 No Longer Active Esvin PAULA Active DICLOFENAC SODIUM 50 MG TBEC 1 tablet by mouth four times daily DICLOFENAC SODIUM 86015544545 No Longer Active Paula Cooney RN Active VERAMYST 27.5 MCG/SPRAY SUSP 2 spray each nare daily FLUTICASONE FUROATE 14630461332 No Longer Active Megan Vargas RN Active ENDOCET 10-325 MG TABS Take one (1) tablet by mouth three times a day OXYCODONE-ACETAMINOPHEN 91640857963 Active Lisa Berkowitz Active ALPRAZOLAM 2 MG TABS Take one (1) tablet by mouth three times a day ALPRAZOLAM 50219489285 Active Lisa Berkowitz Active NEXIUM 40 MG CPDR 1 cap by mouth daily ESOMEPRAZOLE MAGNESIUM 53665025986 No Longer Active Esvin PAULA Active ALPRAZOLAM 2 MG TABS 1 tablet by mouth three times daily as needed ALPRAZOLAM 23761549901 No Longer Active Esvin PAULA Active HYDROXYZINE HCL 25 MG TAB take 1 every 4-6 hours as needed 07/01 HYDROXYZINE HCL 01055599624 No Longer Active Esvin PAULA Active ENDOCET 10-325 MG TABS 1 by mouth twice a day OXYCODONE-ACETAMINOPHEN 15759660022 No Longer Active Esvin PAULA Active MS CONTIN 100 MG [id number] 1 by mouth twice a day MORPHINE SULFATE 81570366726 No Longer Active Esvin PAULA Active SUDAFED 30 MG TAB 1-2 every 4-6 hours as needed PSEUDOEPHEDRINE HCL 09302551498 Active Marylou Melissa RPT,RMA Active VERAMYST 27.5 MCG/SPRAY SUSP 2 spray each nare daily VERAMYST 27.5 MCG/SPRAY SUSP FLUTICASONE FUROATE Inactive DICLOFENAC SODIUM 50 MG TBEC 1 tablet by mouth four times daily DICLOFENAC SODIUM 50 MG TBEC 892187 DICLOFENAC SODIUM Inactive LISINOPRIL 20 MG TABS Take 1 tablet by mouth daily LISINOPRIL 20 MG TABS 507118 LISINOPRIL Inactive MOBIC 15 MG TABS 1 tab daily MOBIC 15 MG TABS 196901 MELOXICAM Inactive NEXIUM 40 MG CPDR 1 cap daily NEXIUM 40 MG CPDR 817525 ESOMEPRAZOLE MAGNESIUM Inactive CELEBREX 200 MG CAPS 1 tablet by mouth twice daily with meals CELEBREX 200 MG CAPS 026189 CELECOXIB Inactive FLEXERIL 10 MG TAB 1 [...] a day 05/05 AMOXICILLIN 500 MG CAPS 255456 AMOXICILLIN Inactive ZIAC 2.5-6.25 MG TAB 1 tablet every morning for high blood pressure ZIAC 2.5-6.25 MG TAB 604257 BISOPROLOL-HCTZ Inactive ZIAC 2.5-6.25 MG TAB 1 tablet daily for high blood pressure 10/27 ZIAC 2.5-6.25 MG TAB 403137 BISOPROLOL-HCTZ Inactive HYDROXYZINE HCL 25 MG TABS Take one (1) tablet by mouth twice a day HYDROXYZINE HCL 25 MG TABS 874480 HYDROXYZINE HCL Inactive ANUSOL-HC 25 MG SUPPOSITORY 1 rectally every 12 hours for irritation ANUSOL-HC 25 MG SUPPOSITORY 8455650 HYDROCORTISONE NAEL (RECTAL ) Inactive HYDROXYZINE HCL 25 MG TAB 1 two times a day as needed for anxiety HYDROXYZINE HCL 25 MG TAB 635334 HYDROXYZINE HCL Inactive FLOMAX 0.4 MG CAPS 1 capsule in the evening for night time urination. FLOMAX 0.4 MG CAPS 210060 TAMSULOSIN HCL Inactive CLEMASTINE FUMARATE 1.34 MG ORAL TABS 1 tab PO BID CLEMASTINE FUMARATE 1.34 MG ORAL TABS 900869 CLEMASTINE FUMARATE Inactive POLY-IRON 150 150 MG CAPS 1 tab po bid POLY-IRON 150 150 MG CAPS POLYSACCHARIDE IRON COMPLEX Inactive NYSTATIN 433260 UNIT/GM CREA apply to rash TID PRN NYSTATIN 312985 UNIT/GM CREA 714609 NYSTATIN Inactive JSUIKOI-YEKKFTSFJ-RYWN 167-83-8 MG TABS 1 tab po daily PVCNOGS-TDSVSEYEP-IEOZ 167-83-8 MG TABS ZMVVNJH-LCYHLODDW-NPCR Inactive MS CONTIN 100 MG [id number] 1 by mouth twice a day MS CONTIN 100 MG YS98H-[id number] MORPHINE SULFATE Inactive ENDOCET 10-325 MG TABS 1 by mouth twice a day ENDOCET 10-325 MG TABS 2750791 OXYCODONE-ACETAMINOPHEN Inactive HYDROXYZINE HCL 25 MG TAB take 1 every 4-6 hours as needed 07/01 HYDROXYZINE HCL 25 MG TAB 245131 HYDROXYZINE HCL Inactive ALPRAZOLAM 2 MG TABS 1 tablet by mouth three times daily as needed ALPRAZOLAM 2 MG TABS 292596 ALPRAZOLAM Inactive NEXIUM 40 MG CPDR 1 cap by mouth daily NEXIUM 40 MG CPDR 550661 ESOMEPRAZOLE MAGNESIUM Inactive Advance Directives Directive Description [...] ... - Chemistry sodium, serum 140 mmol/L 284-288 9086/03/25 carbon dioxide, venous blood 31.3 mmol/L 21.0-32.0 potassium, serum 4.0 mmol/L 3.5-5.2 chloride, serum 101 mmol/L 98-107 blood glucose 96 mg/dL 65-110 urea nitrogen, blood 7 mg/dL 7-18 creatinine, serum 0.94 mg/dL 0.55-1.30 alanine aminotransferase (SGPT), serum 23 U/L 12-78 aspartate aminotransferase (SGOT), serum 21 U/L 15-37 calcium, serum 8.9 mg/dL 8.5-10.1 bilirubin, serum, total 0.30 mg/dL 0.00-1.00 cholesterol, serum 169 mg/dL 098-648 7607/03/25 triglyceride, serum, fasting 143 mg/dL 30-200 HDL [...] 5.0-8.5 Encounters Code Encounter Date Provider Facility CPT-72674 Level 3 Est. Patient 11:07:48 CDT Wily Gonzalez DO [facility] CPT-61507 Level 3 Est. Patient 11:24:24 CDT Wily W Carlos [facility] CPT-29984 Level 3 Est. Patient 15:19:54 PALLETISER OPERATOR Wily Gonzalez [facility] CPT-36498 Level 3 Est. Patient 10:04:45 CDT Wily Gonzalez DO [facility] CPT-76169 Level 3 Est. Patient 13:04:06 CDT Wily Gonzalez [facility] CPT-85689 Level 3 Est. Patient 12:23:04 CDT Wily Gonzalez [facility] CPT-50069 Level 3 Est. Patient 15:43:10 PALLETISER OPERATOR Wily Gonzalez [facility] CPT-06879 Level 3 Est. Patient 16:10:54 CDT Wily Gonzalez [facility] CPT-07439 Level 3 Est. Patient 19:50:51 CDT Wily Gonzalez [facility] CPT-96673 Level 3 Est. Patient 12:02:30 PALLETISER OPERATOR Wily Gonzalez [facility] CPT-48652 Level 3 Est. Patient 12:03:11 PALLETISER OPERATOR Wily Gonzalez [facility] CPT-89046 Level 3 Est. Patient 12:01:41 PALLETISER OPERATOR Wily Gonzalez [facility] CPT-44819 Level 3 Est. Patient 11:51:24 PALLETISER OPERATOR Wily Gonzalez [facility] CPT-73363 Level 3 Est. Patient 11:58:20 PALLETISER OPERATOR Wily Gonzalez [facility] CPT-14147 Level 3 Est. Patient 08:31:36 PALLETISER OPERATOR Wily Gonzalez [facility] CPT-03449 Level 3 Est. Patient 21:57:36 CDT Wily Gonzalez [facility] CPT-93464 Level 3 Est. Patient 10:49:58 CDT Esvin Hudson [facility] CPT-93392 Level 3 Est. Patient 11:22:52 CDT Esvin Hudson CHAI [facility] CPT-28706 Level 3 Est. Patient 13:49:41 CDT Esvin Hudson CHAI [facility] CPT-92047 Level 3 Est. Patient 11:54:53 CDT Esvin PAULA [facility] CPT-63141 Level 3 Est. Patient 09:07:11 CDT Esvin PAULA [facility] CPT-57607 Level 3 Est. Patient 13:52:47 CDT Esvin PAULA [facility] CPT-94213 Level 3 Est. Patient 11:26:46 CDT Esvin Hudson CHAI [facility] CPT-35557 Level 3 Est. Patient 10:25:00 PALLETISER OPERATOR Esvin Hudson CHAI [facility] CPT-94471 Level 3 Est. Patient 11:39:11 PALLETISER OPERATOR Esvin PAULA [facility] CPT-98310 Level 3 Est. Patient 13:24:24 PALLETISER OPERATOR Esvin Hudson CHAI [facility] CPT-02472 Level 3 Est. Patient 10:26:13 PALLETISER OPERATOR Esvin PAULA [facility] CPT-62857 Level 3 Est. Patient 10:21:21 CDT Esvin PAULA [facility] CPT-65314 Level 3 Est. Patient 10:26:30 CDT Esvin PAULA [facility] CPT-31499 Level 3 Est. Patient 09:16:37 CDT Esvin Hudson [facility]-89110 Level 3 Est. Patient 09:06:58 CDT Esvin Tristan CHAI [facility] CPT-04563 Level 3 Est. Patient 10:05:29 CDT Esvin Tristan CHAI [facility] CPT-73222 Level 3 Est. Patient 10:38:45 CDT Esvin Hudson [facility] CPT-71116 Level 3 Est. Patient 10:09:45 CDT Esvin Hudson CHAI [facility] CPT-59414 Level 3 Est. Patient 09:26:37 CDT Esvin Tristan [facility] CPT-90820 Level 3 Est. Patient 10:34:42 PALLETISER OPERATOR Esvin Hudson [facility] CPT-74802 Level 3 Est. Patient 10:45:47 PALLETISER OPERATOR Esvin Hudson [facility] CPT-92320 Level 3 Est. Patient 10:45:22 PALLETISER OPERATOR Esvin Tristan [facility] CPT-55172 Level 3 Est. Patient 14:18:30 PALLETISER OPERATOR Esvin Hudson [facility] CPT-45036 Level 3 Est. Patient 13:53:29 PALLETISER OPERATOR Esvin Hudson [facility] CPT-10172 Level 3 Est. Patient 10:34:11 CDT Esvin Ladd [facility] Procedures Code Procedure Name Date Entry Date Standard Description CPT-86035 Venipuncture Draw Fee 09:26:55 CDT CPT-53176 Venipuncture Draw Fee 11:55:52 CDT CPT-33382 Spec Collection and Handling Fee 09:16:37 CDT CPT-68236 Venipuncture Draw Fee 09:16:37 CDT
--- OUTSIDE RECORDS SUMMARY | 2018-02-26 15:25 | XMS REPORT | Clinical Summary ---
[...] for up to 2 weeks TRIAMCINOLONE ACETONIDE [id number] Active Wily Gonzalez DO Active [id number] 167-83-8 MG TABS 1 tab po daily [id number] 45422829205 No Longer Active Wily Gonzalez DO Active NYSTATIN 235580 UNIT/GM CREA apply to rash TID PRN NYSTATIN 22590145136 No Longer Active Wily Gonzalez DO Active POLY-IRON 150 150 MG CAPS 1 tab po bid POLYSACCHARIDE IRON COMPLEX 16562348327 No Longer Active Wily Gonzalez DO Active FLONASE ALLERGY RELIEF 50 MCG/ACT NASAL SUSP 2 sprays each nostril every day FLUTICASONE PROPIONATE 09743556028 Active Wily Gonzalez DO Active CLEMASTINE FUMARATE 1.34 MG ORAL TABS 1 tab PO BID CLEMASTINE FUMARATE 77958000568 No Longer Active Wily Gonzalez DO Active FLOMAX 0.4 MG CAPS 1 capsule in the evening for night time urination. TAMSULOSIN HCL 42561146604 No Longer Active Wily Gonzalez DO Active PROTONIX 40 MG TBEC 1 po daily PANTOPRAZOLE SODIUM 36401160298 Active Agnieszka Yeung Active HYDROXYZINE HCL 25 MG TAB 1 two times a day as needed for anxiety HYDROXYZINE HCL 06476530258 No Longer Active Wily Gonzalez DO Active ANUSOL-HC 25 MG SUPPOSITORY 1 rectally every 12 hours for irritation HYDROCORTISONE NAEL (RECTAL) 36701557512 No Longer Active Wily Gonzalez DO Active HYDROXYZINE HCL 25 MG TABS Take one (1) tablet by mouth twice a day HYDROXYZINE HCL 04840463214 No Longer Active Wily Gonzalez DO Active ZIAC 2.5-6.25 MG TAB 1 tablet daily for high blood pressure 10/27 BISOPROLOL-HCTZ 79003602520 No Longer Active Wily Gonzalez DO Active ZIAC 2.5-6.25 MG TAB 1 tablet every morning for high blood pressure BISOPROLOL-HCTZ 33919639182 No Longer Active Wily Gonzalez DO Active AMOXICILLIN 500 MG CAPS Take one (1) tablet by mouth three times a day 05/05 AMOXICILLIN 76378084961 No Longer Active Wily Gonzalez DO Active MORPHINE SULFATE ER 100 MG CR-TABS Take one (1) tablet by mouth twice a day MORPHINE SULFATE 47357515732 No Longer Active Wily Gonzalez DO Active MORPHINE SULFATE ER 100 MG [id number] 1 capsule twice daily for chronic pain MORPHINE SULFATE 88545274984 Active Lisa Berkowitz Active CIALIS 10 MG TABS 1 every 72 hours as needed TADALAFIL 13394771849 No Longer Active Esvin PAULA Active FLONASE 50 MCG/ACT SUSP 2 SPRAY EACH NARE DAILY FLUTICASONE PROPIONATE 15073618153 No Longer Active Esvin PAULA Active CYCLOBENZAPRINE HCL 10 MG TABS Take one (1) tablet by mouth three times a day CYCLOBENZAPRINE HCL 69938612798 Active Agnieszka Yeung Active OPANA ER (CRUSH RESISTANT) 40 MG TH65X-RLS Take one (1) tablet by mouth twice a day OXYMORPHONE HCL 50967653343 No Longer Active Esvin PAULA Active PROAIR HFA 108 (90 BASE) MCG/ACT AERS 2 puffs every four hours as needed ALBUTEROL SULFATE 99014902376 No Longer Active Esvin PAULA Active CLEARLAX POWD 17gm q day prn constipation POLYETHYLENE GLYCOL 3350 20997817084 Active Kaylen Leigh MA Active MORPHINE SULFATE ER 100 MG [id number]-RYI Take one (1) tablet by mouth twice a day MORPHINE SULFATE 98024606245 No Longer Active Esvin PAULA Active FLEXERIL 10 MG TAB 1 tablet by mouth 3 times daily as needed CYCLOBENZAPRINE HCL 12385870378 No Longer Active Esvin PAULA Active CELEBREX 200 MG CAPS 1 tablet by mouth twice daily with meals CELECOXIB 86985434025 No Longer Active Esvin PAULA Active NEXIUM 40 MG CPDR 1 cap daily ESOMEPRAZOLE MAGNESIUM 98525025871 No Longer Active Esvin PAULA Active MOBIC 15 MG TABS 1 tab daily MELOXICAM 46464860920 No Longer Active Esvin PAULA Active LISINOPRIL 20 MG TABS Take 1 tablet by mouth daily LISINOPRIL 19707543923 No Longer Active Esvin PAULA Active DICLOFENAC SODIUM 50 MG TBEC 1 tablet by mouth four times daily DICLOFENAC SODIUM 92581253495 No Longer Active Paula Cooney RN Active VERAMYST 27.5 MCG/SPRAY SUSP 2 spray each nare daily FLUTICASONE FUROATE 55006483998 No Longer Active Megan Vargas RN Active ENDOCET 10-325 MG TABS Take one (1) tablet by mouth three times a day OXYCODONE-ACETAMINOPHEN 91855875907 Active Lisa Berkowitz Active ALPRAZOLAM 2 MG TABS Take one (1) tablet by mouth three times a day ALPRAZOLAM 77986504206 Active Lisa Berkowitz Active NEXIUM 40 MG CPDR 1 cap by mouth daily ESOMEPRAZOLE MAGNESIUM 19284518232 No Longer Active Esvin PAULA Active ALPRAZOLAM 2 MG TABS 1 tablet by mouth three times daily as needed ALPRAZOLAM 20673830222 No Longer Active Esvin PAULA Active HYDROXYZINE HCL 25 MG TAB take 1 every 4-6 hours as needed 07/01 HYDROXYZINE HCL 90185107279 No Longer Active Esivn PAULA Active ENDOCET 10-325 MG TABS 1 by mouth twice a day OXYCODONE-ACETAMINOPHEN 18808953205 No Longer Active Esvin PAULA Active MS CONTIN 100 MG [id number] 1 by mouth twice a day MORPHINE SULFATE 26137460203 No Longer Active Esvin PAULA Active SUDAFED 30 MG TAB 1-2 every 4-6 hours as needed PSEUDOEPHEDRINE HCL 79198429005 Active Marylou Melissa RPT,RMA Active VERAMYST 27.5 MCG/SPRAY SUSP 2 spray each nare daily VERAMYST 27.5 MCG/SPRAY SUSP FLUTICASONE FUROATE Inactive DICLOFENAC SODIUM 50 MG TBEC 1 tablet by mouth four times daily DICLOFENAC SODIUM 50 MG TBEC 952756 DICLOFENAC SODIUM Inactive LISINOPRIL 20 MG TABS Take 1 tablet by mouth daily LISINOPRIL 20 MG TABS 840859 LISINOPRIL Inactive MOBIC 15 MG TABS 1 tab daily MOBIC 15 MG TABS 413984 MELOXICAM Inactive NEXIUM 40 MG CPDR 1 cap daily NEXIUM 40 MG CPDR 979551 ESOMEPRAZOLE MAGNESIUM Inactive CELEBREX 200 MG CAPS 1 tablet by mouth twice daily with meals CELEBREX 200 MG CAPS 567352 CELECOXIB Inactive FLEXERIL 10 MG TAB 1 [...] a day 05/05 AMOXICILLIN 500 MG CAPS 448027 AMOXICILLIN Inactive ZIAC 2.5-6.25 MG TAB 1 tablet every morning for high blood pressure ZIAC 2.5-6.25 MG TAB 495486 BISOPROLOL-HCTZ Inactive ZIAC 2.5-6.25 MG TAB 1 tablet daily for high blood pressure 10/27 ZIAC 2.5-6.25 MG TAB 016160 BISOPROLOL-HCTZ Inactive HYDROXYZINE HCL 25 MG TABS Take one (1) tablet by mouth twice a day HYDROXYZINE HCL 25 MG TABS 382887 HYDROXYZINE HCL Inactive ANUSOL-HC 25 MG SUPPOSITORY 1 rectally every 12 hours for irritation ANUSOL-HC 25 MG SUPPOSITORY 5796071 HYDROCORTISONE NAEL (RECTAL ) Inactive HYDROXYZINE HCL 25 MG TAB 1 two times a day as needed for anxiety HYDROXYZINE HCL 25 MG TAB 012343 HYDROXYZINE HCL Inactive FLOMAX 0.4 MG CAPS 1 capsule in the evening for night time urination. FLOMAX 0.4 MG CAPS 827875 TAMSULOSIN HCL Inactive CLEMASTINE FUMARATE 1.34 MG ORAL TABS 1 tab PO BID CLEMASTINE FUMARATE 1.34 MG ORAL TABS 923280 CLEMASTINE FUMARATE Inactive POLY-IRON 150 150 MG CAPS 1 tab po bid POLY-IRON 150 150 MG CAPS POLYSACCHARIDE IRON COMPLEX Inactive NYSTATIN 106274 UNIT/GM CREA apply to rash TID PRN NYSTATIN 797289 UNIT/GM CREA 043214 NYSTATIN Inactive [id number] 167-83-8 MG TABS 1 tab po daily [id number] 167-83-8 MG TABS [id number] Inactive MS CONTIN 100 MG [id number] 1 by mouth twice a day MS CONTIN 100 MG [id number]-DGY MORPHINE SULFATE Inactive ENDOCET 10-325 MG TABS 1 by mouth twice a day ENDOCET 10-325 MG TABS 6415423 OXYCODONE-ACETAMINOPHEN Inactive HYDROXYZINE HCL 25 MG TAB take 1 every 4-6 hours as needed 07/01 HYDROXYZINE HCL 25 MG TAB 300465 HYDROXYZINE HCL Inactive ALPRAZOLAM 2 MG TABS 1 tablet by mouth three times daily as needed ALPRAZOLAM 2 MG TABS 902987 ALPRAZOLAM Inactive NEXIUM 40 MG CPDR 1 cap by mouth daily NEXIUM 40 MG CPDR 375406 ESOMEPRAZOLE MAGNESIUM Inactive Advance Directives Directive Description [...] ... - Chemistry sodium, serum 140 mmol/L 980-552 7816/03/25 carbon dioxide, venous blood 31.3 mmol/L 21.0-32.0 potassium, serum 4.0 mmol/L 3.5-5.2 chloride, serum 101 mmol/L 98-107 blood glucose 96 mg/dL 65-110 urea nitrogen, blood 7 mg/dL 7-18 creatinine, serum 0.94 mg/dL 0.55-1.30 alanine aminotransferase (SGPT), serum 23 U/L 12-78 aspartate aminotransferase (SGOT), serum 21 U/L 15-37 calcium, serum 8.9 mg/dL 8.5-10.1 bilirubin, serum, total 0.30 mg/dL 0.00-1.00 cholesterol, serum 169 mg/dL 193-710 4628/03/25 triglyceride, serum, fasting 143 mg/dL 30-200 HDL [...] 5.0-8.5 Encounters Code Encounter Date Provider Facility CPT-54409 Level 3 Est. Patient 11:07:48 CDT Wily Gonzalez DO [facility] CPT-53755 Level 3 Est. Patient 11:24:24 CDT Wily W Carlos [facility] CPT-23940 Level 3 Est. Patient 15:19:54 KEYBOARDING CLERK Wily Gonzalez [facility] CPT-55910 Level 3 Est. Patient 10:04:45 CDT Wily Gonzalez DO [facility] CPT-21233 Level 3 Est. Patient 13:04:06 CDT Wily Gonzalez [facility] CPT-55134 Level 3 Est. Patient 12:23:04 CDT Wily Gonzalez [facility] CPT-88092 Level 3 Est. Patient 15:43:10 KEYBOARDING CLERK Wily Gonzalez [facility] CPT-88414 Level 3 Est. Patient 16:10:54 CDT Wily Gonzalez [facility] CPT-18791 Level 3 Est. Patient 19:50:51 CDT Wily Gonzalez [facility] CPT-77687 Level 3 Est. Patient 12:02:30 KEYBOARDING CLERK Wily Gonzalez [facility] CPT-25691 Level 3 Est. Patient 12:03:11 KEYBOARDING CLERK Wily Gonzalez [facility] CPT-01964 Level 3 Est. Patient 12:01:41 KEYBOARDING CLERK Wily Gonzalez [facility] CPT-40571 Level 3 Est. Patient 11:51:24 KEYBOARDING CLERK Wily Gonzalez [facility] CPT-02316 Level 3 Est. Patient 11:58:20 KEYBOARDING CLERK Wily Gonzalez [facility] CPT-01133 Level 3 Est. Patient 08:31:36 KEYBOARDING CLERK Wily Gonzalez [facility] CPT-18816 Level 3 Est. Patient 21:57:36 CDT Wily Gonzalez [facility] CPT-40294 Level 3 Est. Patient 10:49:58 CDT Esvin Hudson [facility] CPT-60396 Level 3 Est. Patient 11:22:52 CDT Esvin Hudson CHAI [facility] CPT-95662 Level 3 Est. Patient 13:49:41 CDT Esvin Hudson CHAI [facility] CPT-08746 Level 3 Est. Patient 11:54:53 CDT Esvin PAULA [facility] CPT-84329 Level 3 Est. Patient 09:07:11 CDT Esvin PAULA [facility] CPT-56549 Level 3 Est. Patient 13:52:47 CDT Esvin PAULA [facility] CPT-87243 Level 3 Est. Patient 11:26:46 CDT Esvin Hudson CH[facility] CPT-35613 Level 3 Est. Patient 10:25:00 KEYBOARDING CLERK Esvin Hudson CHAI [facility] CPT-45411 Level 3 Est. Patient 11:39:11 KEYBOARDING CLERK Esvin PAULA [facility] CPT-79613 Level 3 Est. Patient 13:24:24 KEYBOARDING CLERK Esvin Hudson CH[facility] CPT-88813 Level 3 Est. Patient 10:26:13 KEYBOARDING CLERK Esvin PAULA [facility] CPT-80737 Level 3 Est. Patient 10:21:21 CDT Esvin PAULA [facility] CPT-23702 Level 3 Est. Patient 10:26:30 CDT Esvin PAULA [facility] CPT-95368 Level 3 Est. Patient 09:16:37 CDT Esvin Hudson [facility]-38610 Level 3 Est. Patient 09:06:58 CDT Esvin Tristan [facility] CPT-24342 Level 3 Est. Patient 10:05:29 CDT Esvin Tristan [facility] CPT-40729 Level 3 Est. Patient 10:38:45 CDT Esvin Hudson [facility] CPT-91868 Level 3 Est. Patient 10:09:45 CDT Esvin Hudson [facility] CPT-17844 Level 3 Est. Patient 09:26:37 CDT Esvin Tristan [facility] CPT-21963 Level 3 Est. Patient 10:34:42 KEYBOARDING CLERK Esvin Hudson [facility] CPT-99462 Level 3 Est. Patient 10:45:47 KEYBOARDING CLERK Esvin Hudson [facility] CPT-14352 Level 3 Est. Patient 10:45:22 KEYBOARDING CLERK Esvin Tristan [facility] CPT-35303 Level 3 Est. Patient 14:18:30 KEYBOARDING CLERK Esvin Hudson [facility] CPT-00032 Level 3 Est. Patient 13:53:29 KEYBOARDING CLERK Esvin Hudson [facility] CPT-88875 Level 3 Est. Patient 10:34:11 CDT Esvin Tristan [facility] Procedures Code Procedure Name Date Entry Date Standard Description CPT-34830 Venipuncture Draw Fee 09:26:55 CDT CPT-23441 Venipuncture Draw Fee 11:55:52 CDT CPT-09193 Spec Collection and Handling Fee 09:16:37 CDT CPT-43188 Venipuncture Draw Fee 09:16:37 CDT
--- OUTSIDE RECORDS SUMMARY | 2018-02-26 15:29 | XMS REPORT | Clinical Summary ---
Author Author Admin, E Organization [employer] Address Unknown Phone Unavailable Allergies, Adverse Reactions, [...] hypertension Compression fracture, spine 805.8 Active Tiffanie Barvo LRT Closed fracture of unspecified part of [...] twice dialy for blood pressure METOPROLOL TARTRATE 83113208690 Active Wily Gonzalez DO Active CHANTIX 1 MG ORAL TABLET 1 twice a day VARENICLINE TARTRATE 70945112109 No Longer Active Wily Gonzalez DO Active RAUL-MAG 500-250 MG ORAL TABLET Take one by mouth daily CALCIUM -MAGNESIUM 47385395332 Active Wily Gonzalez DO Active FOSAMAX 70 MG ORAL TABLET 1 po qweek. Take 30min prior to first food/drink. Avoid lying down x 1 hour. ALENDRONATE SODIUM 40301499483 Active Laurie Latham LPN Active CALCIUM 600 MG ORAL TABLET 1 po q day CALCIUM 48283167592 Active Rose Bang Active TRIAMCINOLONE ACETONIDE 0.1 % EXTERNAL CREAM Apply to affected area 3 times daily for up to 2 weeks TRIAMCINOLONE ACETONIDE 07554460750 Active Wily Gonzalez DO Active [id number]-[id number] 167-83-8 MG ORAL TABLET 1 tab po daily [id number]-[id number] 95541535673 No Longer Active Wily Gonzalez DO Active NYSTATIN 381581 UNIT/GM EXTERNAL CREAM apply to rash TID PRN 2015 NYSTATIN 41499661177 No Longer Active Wily Gonzalez DO Active POLY-IRON 150 150 MG ORAL CAPSULE 1 tab po bid POLYSACCHARIDE IRON COMPLEX 52051409503 No Longer Active Wily Gonzalez DO Active FLONASE ALLERGY RELIEF 50 MCG/ACT NASAL SUSPENSION 2 sprays each nostril every day FLUTICASONE PROPIONATE 40484736859 Active Wily Gonzalez DO Active CLEMASTINE FUMARATE 1.34 MG ORAL TABLET 1 tab PO BID CLEMASTINE FUMARATE 48523175025 No Longer Active Wily Gonzalez DO Active FLOMAX 0.4 MG ORAL CAPSULE 1 capsule in the evening for night time urination. TAMSULOSIN HCL 69843155009 No Longer Active Wily Gonzalez DO Active PROTONIX 40 MG ORAL TABLET DELAYED RELEASE 1 po daily PANTOPRAZOLE SODIUM 50479974904 Active Lisa Berkowitz Active HYDROXYZINE HCL 25 MG ORAL TABLET 1 two times a day as needed for anxiety HYDROXYZINE HCL 38632343511 No Longer Active Wily Gonzalez DO Active ANUSOL-HC 25 MG RECTAL SUPPOSITORY 1 rectally every 12 hours for irritation HYDROCORTISONE NAEL (RECTAL) 71734810616 No Longer Active Wily Gonzalez DO Active HYDROXYZINE HCL 25 MG ORAL TABLET Take one (1) tablet by mouth twice a day HYDROXYZINE HCL 72507422394 No Longer Active Wily Gonzalez DO Active ZIAC 2.5-6.25 MG ORAL TABLET 1 tablet daily for high blood pressure BISOPROLOL-HCTZ 21912055518 No Longer Active Wily Gonzalez DO Active ZIAC 2.5-6.25 MG ORAL TABLET 1 tablet every morning for high blood pressure BISOPROLOL-HCTZ 49270423270 No Longer Active Wily Gonzalez DO Active AMOXICILLIN 500 MG ORAL CAPSULE Take one (1) tablet by mouth three times a day AMOXICILLIN 23420574919 No Longer Active Wily Gonzalez DO Active MORPHINE SULFATE ER 100 MG ORAL TABLET EXTENDED RELEASE Take one (1) tablet by mouth twice a day MORPHINE SULFATE 77417402794 No Longer Active Wily Gonzalez DO Active MORPHINE SULFATE ER 100 MG ORAL CAPSULE EXTENDED RELEASE 24 HOUR 1 capsule twice daily for chronic pain MORPHINE SULFATE 13743773559 Active Wily Gonzalez DO Active CIALIS 10 MG ORAL TABLET 1 every 72 hours as needed TADALAFIL 25524624335 No Longer Active Esvin PAULA Active FLONASE 50 MCG/ACT NASAL SUSPENSION 2 SPRAY EACH NARE DAILY 05/08 FLUTICASONE PROPIONATE 69594708845 No Longer Active Esvin PAULA Active CYCLOBENZAPRINE HCL 10 MG ORAL TABLET Take one (1) tablet by mouth three times a day CYCLOBENZAPRINE HCL 75713474163 Active Rose Bang Active OPANA ER 40 MG ORAL TABLET ER 12 HOUR ABUSE-DETERRENT Take one (1) tablet by mouth twice a day OXYMORPHONE HCL 21347743196 No Longer Active Esvin PAULA Active PROAIR HFA 108 (90 Base) MCG/ACT INHALATION AEROSOL SOLUTION 2 puffs every four hours as needed ALBUTEROL SULFATE 49965577798 No Longer Active Esvin PAULA Active CLEARLAX ORAL POWDER 17gm q day prn constipation POLYETHYLENE GLYCOL 3350 66870783651 Active Wily Gonzalez DO Active MORPHINE SULFATE ER 100 MG ORAL CAPSULE EXTENDED RELEASE 24 HOUR Take one (1) tablet by mouth twice a day MORPHINE SULFATE 40300587199 No Longer Active Esvin PAULA Active FLEXERIL 10 MG TAB 1 tablet by mouth 3 times daily as needed CYCLOBENZAPRINE HCL 81662536814 No Longer Active Esvin PAULA Active CELEBREX 200 MG ORAL CAPSULE 1 tablet by mouth twice daily with meals 2012 CELECOXIB 97962297195 No Longer Active Esvin PAULA Active NEXIUM 40 MG ORAL CAPSULE DELAYED RELEASE 1 cap daily ESOMEPRAZOLE MAGNESIUM 50093558544 No Longer Active Esvin PAULA Active MOBIC 15 MG ORAL TABLET 1 tab daily MELOXICAM 79370103177 No Longer Active Esvin PAULA Active LISINOPRIL 20 MG ORAL TABLET Take 1 tablet by mouth daily LISINOPRIL 46666587810 No Longer Active Esvin PAULA Active DICLOFENAC SODIUM 50 MG ORAL TABLET DELAYED RELEASE 1 tablet by mouth four times daily DICLOFENAC SODIUM 49412354193 No Longer Active Paula Cooney RN Active VERAMYST 27.5 MCG/SPRAY NASAL SUSPENSION 2 spray each nare daily FLUTICASONE FUROATE 48003760321 No Longer Active Megan Vargas RN Active ENDOCET 10-325 MG ORAL TABLET Take one (1) tablet by mouth three times a day OXYCODONE-ACETAMINOPHEN 70133075231 Active Wily Gonzalez DO Active ALPRAZOLAM 2 MG ORAL TABLET Take one (1) tablet by mouth three times a day ALPRAZOLAM 70779744234 Active Wily Gonzalez DO Active NEXIUM 40 MG ORAL CAPSULE DELAYED RELEASE 1 cap by mouth daily ESOMEPRAZOLE MAGNESIUM 69679648652 No Longer Active Esvin PAULA Active ALPRAZOLAM 2 MG ORAL TABLET 1 tablet by mouth three times daily as needed ALPRAZOLAM 23353449426 No Longer Active Esvin PAULA Active HYDROXYZINE HCL 25 MG ORAL TABLET take 1 every 4-6 hours as needed HYDROXYZINE HCL 19884553707 No Longer Active Esvin PAULA Active ENDOCET 10-325 MG ORAL TABLET 1 by mouth twice a day OXYCODONE-ACETAMINOPHEN 19715082899 No Longer Active Esvin PAULA Active MS CONTIN 100 MG ORAL TABLET EXTENDED RELEASE 1 by mouth twice a day MORPHINE SULFATE 15640064256 No Longer Active Esvin PAULA Active SUDAFED 30 MG ORAL TABLET 1-2 every 4-6 hours as needed PSEUDOEPHEDRINE HCL 20408952942 Active Rose Bang Active VERAMYST 27.5 MCG/SPRAY NASAL SUSPENSION 2 spray each nare daily VERAMYST 27.5 MCG/SPRAY NASAL SUSPENSION FLUTICASONE FUROATE Inactive DICLOFENAC SODIUM 50 MG ORAL TABLET DELAYED RELEASE 1 tablet by mouth four times daily DICLOFENAC SODIUM 50 MG ORAL TABLET DELAYED RELEASE 881223 DICLOFENAC SODIUM Inactive LISINOPRIL 20 MG ORAL TABLET Take 1 tablet by mouth daily LISINOPRIL 20 MG ORAL TABLET 702085 LISINOPRIL Inactive MOBIC 15 MG ORAL TABLET 1 tab daily MOBIC 15 MG ORAL TABLET 735405 MELOXICAM Inactive NEXIUM 40 MG ORAL CAPSULE DELAYED RELEASE 1 cap daily NEXIUM 40 MG ORAL CAPSULE DELAYED RELEASE 035957 ESOMEPRAZOLE MAGNESIUM Inactive CELEBREX 200 MG ORAL CAPSULE 1 tablet by mouth twice daily with meals 2012 CELEBREX 200 MG ORAL CAPSULE 435528 CELECOXIB Inactive FLEXERIL 10 MG TAB 1 [...] DAILY 05/08 FLONASE 50 MCG/ACT NASAL SUSPENSION 9368197 FLUTICASONE PROPIONATE Inactive CIALIS 10 MG ORAL [...] a day AMOXICILLIN 500 MG ORAL CAPSULE 580564 AMOXICILLIN Inactive ZIAC 2.5-6.25 MG ORAL TABLET 1 tablet every morning for high blood pressure ZIAC 2.5-6.25 MG ORAL TABLET 752906 BISOPROLOL-HCTZ Inactive ZIAC 2.5-6.25 MG ORAL TABLET 1 tablet daily for high blood pressure ZIAC 2.5-6.25 MG ORAL TABLET 898850 BISOPROLOL-HCTZ Inactive HYDROXYZINE HCL 25 MG ORAL TABLET Take one (1) tablet by mouth twice a day HYDROXYZINE HCL 25 MG ORAL TABLET 488037 HYDROXYZINE HCL Inactive ANUSOL-HC 25 MG RECTAL SUPPOSITORY 1 rectally every 12 hours for irritation ANUSOL-HC 25 MG RECTAL SUPPOSITORY 4882941 HYDROCORTISONE NAEL (RECTAL) Inactive HYDROXYZINE HCL 25 MG ORAL TABLET 1 two times a day as needed for anxiety HYDROXYZINE HCL 25 MG ORAL TABLET 291931 HYDROXYZINE HCL Inactive FLOMAX 0.4 MG ORAL CAPSULE 1 capsule in the evening for night time urination. FLOMAX 0.4 MG ORAL CAPSULE 531264 TAMSULOSIN HCL Inactive CLEMASTINE FUMARATE 1.34 MG ORAL TABLET 1 tab PO BID CLEMASTINE FUMARATE 1.34 MG ORAL TABLET 376882 CLEMASTINE FUMARATE Inactive POLY-IRON 150 150 MG ORAL CAPSULE 1 tab po bid POLY-IRON 150 150 MG ORAL CAPSULE 277975 POLYSACCHARIDE IRON COMPLEX Inactive NYSTATIN 483742 UNIT/GM EXTERNAL CREAM apply to rash TID PRN 2015 NYSTATIN 090386 UNIT/GM EXTERNAL CREAM 808019 NYSTATIN Inactive WJENVQJ-NAGBGVEZY-KRRW 167-83-8 MG ORAL TABLET 1 tab po daily [id number]-RXHJJZPPL-AEJZ 167-83-8 MG ORAL TABLET 55524804374 CALCIUM -MAGNESIUM-ZINC Inactive CHANTIX 1 MG ORAL TABLET 1 twice a day CHANTIX 1 MG ORAL TABLET VARENICLINE TARTRATE Inactive MS CONTIN 100 MG ORAL TABLET EXTENDED RELEASE 1 by mouth twice a day MS CONTIN 100 MG ORAL TABLET EXTENDED RELEASE MORPHINE SULFATE Inactive ENDOCET 10-325 MG ORAL TABLET 1 by mouth twice a day ENDOCET 10-325 MG ORAL TABLET 4868214 OXYCODONE-ACETAMINOPHEN Inactive HYDROXYZINE HCL 25 MG ORAL TABLET take 1 every 4-6 hours as needed HYDROXYZINE HCL 25 MG ORAL TABLET 955250 HYDROXYZINE HCL Inactive ALPRAZOLAM 2 MG ORAL TABLET 1 tablet by mouth three times daily as needed ALPRAZOLAM 2 MG ORAL TABLET 836696 ALPRAZOLAM Inactive NEXIUM 40 MG ORAL CAPSULE DELAYED RELEASE 1 cap by mouth daily NEXIUM 40 MG ORAL CAPSULE DELAYED RELEASE 162969 ESOMEPRAZOLE MAGNESIUM Inactive Advance Directives Directive Description [...] Measured Encounters Code Encounter Date Provider Facility CPT-65125 Level 4 Est. Patient 16:18:01 CDT Wily Gonzalez [facility] CPT-92148 Level 4 Est. Patient 16:17:36 CDT Wily Gonzalez [facility] CPT-18019 Level 4 Est. Patient 12:51:46 CDT Wily Gonzalez [facility] CPT-00421 Level 4 Est. Patient 10:10:03 CDT Wily Gonzalez [facility] CPT-65203 Level 3 Est. Patient 14:25:57 CDT Wily Gonzalez [facility] CPT-79036 Level 3 Est. Patient 09:51:37 RUBBER [employer] DIES INSPECTOR Wily Gonzalez [facility] CPT-90706 Level 3 Est. Patient 11:07:48 CDT Wily [facility] CPT-65709 Level 3 Est. Patient 11:24:24 CDT Wily W Carlos [facility] CPT-90389 Level 3 Est. Patient 15:19:54 RUBBER [employer] DIES INSPECTOR Wily Gonzalez [facility] CPT-78618 Level 3 Est. Patient 10:04:45 CDT Wily Gonzalez DO [facility] CPT-03831 Level 3 Est. Patient 13:04:06 CDT Wily Gonzalez [facility] CPT-46145 Level 3 Est. Patient 12:23:04 CDT Wily Gonzalez [facility] CPT-34026 Level 3 Est. Patient 15:43:10 RUBBER [employer] DIES INSPECTOR Wily Gonzalez [facility] CPT-31489 Level 3 Est. Patient 16:10:54 CDT Wily Gonzalez [facility] CPT-98248 Level 3 Est. Patient 19:50:51 CDT Wily Gonzalez [facility] CPT-45443 Level 3 Est. Patient 12:02:30 RUBBER STAMP DIES INSPECTOR Wily Gonzalez [facility] CPT-53640 Level 3 Est. Patient 12:03:11 RUBBER STAMP DIES INSPECTOR Wily Gonzalez [facility] CPT-97147 Level 3 Est. Patient 12:01:41 RUBBER STAMP DIES INSPECTOR Wily Gonzalez [facility] CPT-67746 Level 3 Est. Patient 11:51:24 RUBBER STAMP DIES INSPECTOR Wily Gonzalez [facility] CPT-35387 Level 3 Est. Patient 11:58:20 RUBBER STAMP DIES INSPECTOR Wily Gonzalez [facility] CPT-90308 Level 3 Est. Patient 08:31:36 RUBBER [employer]AMP DIES INSPECTOR Wily Gonzalez [facility] CPT-22329 Level 3 Est. Patient 21:57:36 CDT Wily Gonzalez [facility] CPT-41747 Level 3 Est. Patient 10:49:58 CDT Esvin Hudson [facility] CPT-75873 Level 3 Est. Patient 11:22:52 CDT Esvin Hudson [facility] CPT-89796 Level 3 Est. Patient 13:49:41 CDT Esvin Hudson [facility] CPT-80643 Level 3 Est. Patient 11:54:53 CDT Esvin PAULA [facility] CPT-73420 Level 3 Est. Patient 09:07:[address] [facility] CPT-77423 Level 3 Est. Patient 13:52:47 CDT Esvin PAULA [facility] CPT-82719 Level 3 Est. Patient 11:26:46 CDT Esvin Hudson [facility] CPT-40955 Level 3 Est. Patient 10:25:00 RUBBER [employer]AMP DIES INSPECTOR Esvin Hudson [facility] CPT-26353 Level 3 Est. Patient 11:39:11 RUBBER STAMP DIES INSPECTOR Esvin PAULA [facility] CPT-70963 Level 3 Est. Patient 13:24:24 RUBBER STAMP DIES INSPECTOR Esvin Hudson [facility] CPT-11156 Level 3 Est. Patient 10:26:13 RUBBER STAMP DIES INSPECTOR Esvin PAULA [facility] CPT-13958 Level 3 Est. Patient 10:21:[address] [facility] CPT-93793 Level 3 Est. Patient 10:26:[address] [facility] CPT-52447 Level 3 Est. Patient 09:16:37 CDT Esvin Hudson [facility]-18157 Level 3 Est. Patient 09:06:58 CDT Esvin Tristan [facility] CPT-23376 Level 3 Est. Patient 10:05:29 CDT Esvin Tristan [facility] CPT-57011 Level 3 Est. Patient 10:38:45 CDT Esvin Hudson [facility] CPT-30757 Level 3 Est. Patient 10:09:45 CDT Esvin Hudson [facility] CPT-62342 Level 3 Est. Patient 09:26:37 CDT Esvin Hudson [facility] CPT-60691 Level 3 Est. Patient 10:34:42 RUBBER STAMP DIES INSPECTOR Esvin Hudson [facility] CPT-57601 Level 3 Est. Patient 10:45:47 RUBBER STAMP DIES INSPECTOR Esvin Tristan [facility] CPT-17990 Level 3 Est. Patient 10:45:22 RUBBER STAMP DIES INSPECTOR Esvin Hudson [facility] CPT-36260 Level 3 Est. Patient 14:18:30 RUBBER STAMP DIES INSPECTOR Esvni Hudson [facility] CPT-92063 Level 3 Est. Patient 13:53:29 RUBBER STAMP DIES INSPECTOR Esvin Hudson [facility] CPT-21385 Level 3 Est. Patient 10:34:11 CDT Esvin Hudson [facility] Procedures Code Procedure Name Date Entry Date Standard Description CPT-38240 Smoking Cessation counseling 10:10:03 CDT CPT-82592 Smoking Cessation counseling 14:25:57 CDT CPT-11349 Bone Density - XRAY USE ONLY 11:29:32 CDT CPT-72097 LS spine AP and Lat - XRAY USE ONLY 10:07:43 RU[employer]ER [employer] INSPECTOR 10/26 CPT-82539 Venipuncture Draw Fee 09:51:16 RUBBER [employer] INSPECTOR CPT-75404 Smoking Cessation counseling 09:39:47 RUBBER [employer] INSPECTOR CPT-G0438 Initial Annual Wellness Exam 09:37:28 RUBBER [employer] INSPECTOR CPT-06701 Venipuncture Draw Fee 09:26:55 CDT CPT-90006 Venipuncture Draw Fee 11:55:52 CDT CPT-62591 Spec Collection and Handling Fee 09:16:37 CDT CPT-93817 Venipuncture Draw Fee 09:16:37 CDT
--- OUTSIDE RECORDS SUMMARY | 2018-02-26 15:31 | XMS REPORT | Clinical Summary ---
Author Author Admin, E Organization [email or web address] Address Unknown Phone Unavailable Allergies, Adverse Reactions, [...] twice dialy for blood pressure METOPROLOL TARTRATE 08646994228 Active Wily Gonzalez DO Active CHANTIX 1 MG ORAL TABLET 1 twice a day VARENICLINE TARTRATE 14453794343 No Longer Active Wily Gonzalez DO Active RAUL-MAG 500-250 MG ORAL TABLET Take one by mouth daily CALCIUM -MAGNESIUM 87918997011 Active Wily Gonzalez DO Active FOSAMAX 70 MG ORAL TABLET 1 po qweek. Take 30min prior to first food/drink. Avoid lying down x 1 hour. ALENDRONATE SODIUM 44620987513 Active Laurie Latham LPN Active CALCIUM 600 MG ORAL TABLET 1 po q day CALCIUM 77589447583 Active Rose Bang Active TRIAMCINOLONE ACETONIDE 0.1 % EXTERNAL CREAM Apply to affected area 3 times daily for up to 2 weeks TRIAMCINOLONE ACETONIDE 40828979968 Active Wily Gonzalez DO Active [id number]-[id number]-PDED 167-83-8 MG ORAL TABLET 1 tab po daily [id number]-WVVQ 82969756217 No Longer Active Wily Gonzalez DO Active NYSTATIN 983469 UNIT/GM EXTERNAL CREAM apply to rash TID PRN 2015 NYSTATIN 78441257516 No Longer Active Wily Gonzalez DO Active POLY-IRON 150 150 MG ORAL CAPSULE 1 tab po bid POLYSACCHARIDE IRON COMPLEX 21518290591 No Longer Active Wily Gonzalez DO Active FLONASE ALLERGY RELIEF 50 MCG/ACT NASAL SUSPENSION 2 sprays each nostril every day FLUTICASONE PROPIONATE 05027209386 Active Wily Gonzalez DO Active CLEMASTINE FUMARATE 1.34 MG ORAL TABLET 1 tab PO BID CLEMASTINE FUMARATE 43256856219 No Longer Active Wily Gonzalez DO Active FLOMAX 0.4 MG ORAL CAPSULE 1 capsule in the evening for night time urination. TAMSULOSIN HCL 28673978765 No Longer Active Wily Gonzalez DO Active PROTONIX 40 MG ORAL TABLET DELAYED RELEASE 1 po daily PANTOPRAZOLE SODIUM 45731933149 Active Rose Bang Active HYDROXYZINE HCL 25 MG ORAL TABLET 1 two times a day as needed for anxiety HYDROXYZINE HCL 75995597020 No Longer Active Wily Gonzalez DO Active ANUSOL-HC 25 MG RECTAL SUPPOSITORY 1 rectally every 12 hours for irritation HYDROCORTISONE NAEL (RECTAL) 82106536198 No Longer Active Wily Gonzalez DO Active HYDROXYZINE HCL 25 MG ORAL TABLET Take one (1) tablet by mouth twice a day HYDROXYZINE HCL 59383467597 No Longer Active Wily Gonzalez DO Active ZIAC 2.5-6.25 MG ORAL TABLET 1 tablet daily for high blood pressure BISOPROLOL-HCTZ 65301140032 No Longer Active Wily Gonzalez DO Active ZIAC 2.5-6.25 MG ORAL TABLET 1 tablet every morning for high blood pressure BISOPROLOL-HCTZ 42477506257 No Longer Active Wily Gonzalez DO Active AMOXICILLIN 500 MG ORAL CAPSULE Take one (1) tablet by mouth three times a day AMOXICILLIN 67461172449 No Longer Active Wily Gonzalez DO Active MORPHINE SULFATE ER 100 MG ORAL TABLET EXTENDED RELEASE Take one (1) tablet by mouth twice a day MORPHINE SULFATE 24432478282 No Longer Active Wily Gonzalez DO Active MORPHINE SULFATE ER 100 MG ORAL CAPSULE EXTENDED RELEASE 24 HOUR 1 capsule twice daily for chronic pain MORPHINE SULFATE 00306096167 Active Wily Gonzalez DO Active CIALIS 10 MG ORAL TABLET 1 every 72 hours as needed TADALAFIL 30625252130 No Longer Active Esvin PAULA Active FLONASE 50 MCG/ACT NASAL SUSPENSION 2 SPRAY EACH NARE DAILY 05/08 FLUTICASONE PROPIONATE 61604476650 No Longer Active Esvin PAULA Active CYCLOBENZAPRINE HCL 10 MG ORAL TABLET Take one (1) tablet by mouth three times a day CYCLOBENZAPRINE HCL 79027774755 Active Rose Bang Active OPANA ER 40 MG ORAL TABLET ER 12 HOUR ABUSE-DETERRENT Take one (1) tablet by mouth twice a day OXYMORPHONE HCL 68087119668 No Longer Active Esvin PAULA Active PROAIR HFA 108 (90 Base) MCG/ACT INHALATION AEROSOL SOLUTION 2 puffs every four hours as needed ALBUTEROL SULFATE 49657871742 No Longer Active Esvin PAULA Active CLEARLAX ORAL POWDER 17gm q day prn constipation POLYETHYLENE GLYCOL 3350 19642063084 Active Wily Gonzalez DO Active MORPHINE SULFATE ER 100 MG ORAL CAPSULE EXTENDED RELEASE 24 HOUR Take one (1) tablet by mouth twice a day MORPHINE SULFATE 65230543767 No Longer Active Esvin PAULA Active FLEXERIL 10 MG TAB 1 tablet by mouth 3 times daily as needed CYCLOBENZAPRINE HCL 96051499325 No Longer Active Esvin PAULA Active CELEBREX 200 MG ORAL CAPSULE 1 tablet by mouth twice daily with meals 2012 CELECOXIB 40158884526 No Longer Active Esvin PAULA Active NEXIUM 40 MG ORAL CAPSULE DELAYED RELEASE 1 cap daily ESOMEPRAZOLE MAGNESIUM 49295085440 No Longer Active Esvin PAULA Active MOBIC 15 MG ORAL TABLET 1 tab daily MELOXICAM 42115486701 No Longer Active Esvin PAULA Active LISINOPRIL 20 MG ORAL TABLET Take 1 tablet by mouth daily LISINOPRIL 15804660328 No Longer Active Esvin PAULA Active DICLOFENAC SODIUM 50 MG ORAL TABLET DELAYED RELEASE 1 tablet by mouth four times daily DICLOFENAC SODIUM 59681318958 No Longer Active Paula Cooney RN Active VERAMYST 27.5 MCG/SPRAY NASAL SUSPENSION 2 spray each nare daily FLUTICASONE FUROATE 05770381978 No Longer Active Megan Vargas RN Active ENDOCET 10-325 MG ORAL TABLET Take one (1) tablet by mouth three times a day OXYCODONE-ACETAMINOPHEN 36797986401 Active Wily Gonzalez DO Active ALPRAZOLAM 2 MG ORAL TABLET Take one (1) tablet by mouth three times a day ALPRAZOLAM 04244915858 Active Wily Gonzalez DO Active NEXIUM 40 MG ORAL CAPSULE DELAYED RELEASE 1 cap by mouth daily ESOMEPRAZOLE MAGNESIUM 78447462816 No Longer Active Esvin PAULA Active ALPRAZOLAM 2 MG ORAL TABLET 1 tablet by mouth three times daily as needed ALPRAZOLAM 42968685114 No Longer Active Esvin PAULA Active HYDROXYZINE HCL 25 MG ORAL TABLET take 1 every 4-6 hours as needed HYDROXYZINE HCL 96951645930 No Longer Active Esvin PAULA Active ENDOCET 10-325 MG ORAL TABLET 1 by mouth twice a day OXYCODONE-ACETAMINOPHEN 28021837751 No Longer Active Esvin PAULA Active MS CONTIN 100 MG ORAL TABLET EXTENDED RELEASE 1 by mouth twice a day MORPHINE SULFATE 98779854549 No Longer Active Esvin PUALA Active SUDAFED 30 MG ORAL TABLET 1-2 every 4-6 hours as needed PSEUDOEPHEDRINE HCL 76973269514 Active Rose Bang Active VERAMYST 27.5 MCG/SPRAY NASAL SUSPENSION 2 spray each nare daily VERAMYST 27.5 MCG/SPRAY NASAL SUSPENSION FLUTICASONE FUROATE Inactive DICLOFENAC SODIUM 50 MG ORAL TABLET DELAYED RELEASE 1 tablet by mouth four times daily DICLOFENAC SODIUM 50 MG ORAL TABLET DELAYED RELEASE 975581 DICLOFENAC SODIUM Inactive LISINOPRIL 20 MG ORAL TABLET Take 1 tablet by mouth daily LISINOPRIL 20 MG ORAL TABLET 603021 LISINOPRIL Inactive MOBIC 15 MG ORAL TABLET 1 tab daily MOBIC 15 MG ORAL TABLET 882758 MELOXICAM Inactive NEXIUM 40 MG ORAL CAPSULE DELAYED RELEASE 1 cap daily NEXIUM 40 MG ORAL CAPSULE DELAYED RELEASE 872281 ESOMEPRAZOLE MAGNESIUM Inactive CELEBREX 200 MG ORAL CAPSULE 1 tablet by mouth twice daily with meals 2012 CELEBREX 200 MG ORAL CAPSULE 787213 CELECOXIB Inactive FLEXERIL 10 MG TAB 1 [...] DAILY 05/08 FLONASE 50 MCG/ACT NASAL SUSPENSION 6852502 FLUTICASONE PROPIONATE Inactive CIALIS 10 MG ORAL [...] a day AMOXICILLIN 500 MG ORAL CAPSULE 094841 AMOXICILLIN Inactive ZIAC 2.5-6.25 MG ORAL TABLET 1 tablet every morning for high blood pressure ZIAC 2.5-6.25 MG ORAL TABLET 386338 BISOPROLOL-HCTZ Inactive ZIAC 2.5-6.25 MG ORAL TABLET 1 tablet daily for high blood pressure ZIAC 2.5-6.25 MG ORAL TABLET 961598 BISOPROLOL-HCTZ Inactive HYDROXYZINE HCL 25 MG ORAL TABLET Take one (1) tablet by mouth twice a day HYDROXYZINE HCL 25 MG ORAL TABLET 998170 HYDROXYZINE HCL Inactive ANUSOL-HC 25 MG RECTAL SUPPOSITORY 1 rectally every 12 hours for irritation ANUSOL-HC 25 MG RECTAL SUPPOSITORY 8538240 HYDROCORTISONE NAEL (RECTAL) Inactive HYDROXYZINE HCL 25 MG ORAL TABLET 1 two times a day as needed for anxiety HYDROXYZINE HCL 25 MG ORAL TABLET 371235 HYDROXYZINE HCL Inactive FLOMAX 0.4 MG ORAL CAPSULE 1 capsule in the evening for night time urination. FLOMAX 0.4 MG ORAL CAPSULE 915395 TAMSULOSIN HCL Inactive CLEMASTINE FUMARATE 1.34 MG ORAL TABLET 1 tab PO BID CLEMASTINE FUMARATE 1.34 MG ORAL TABLET 941641 CLEMASTINE FUMARATE Inactive POLY-IRON 150 150 MG ORAL CAPSULE 1 tab po bid POLY-IRON 150 150 MG ORAL CAPSULE 287235 POLYSACCHARIDE IRON COMPLEX Inactive NYSTATIN 948510 UNIT/GM EXTERNAL CREAM apply to rash TID PRN 2015 NYSTATIN 990273 UNIT/GM EXTERNAL CREAM 760714 NYSTATIN Inactive NMKECOA-VRGJSZXJI-APGC 167-83-8 MG ORAL TABLET 1 tab po daily ZYFHTFV-LZSSZAEKK-VADB 167-83-8 MG ORAL TABLET 41583872998 CALCIUM -MAGNESIUM-ZINC Inactive CHANTIX 1 MG ORAL TABLET 1 twice a day CHANTIX 1 MG ORAL TABLET VARENICLINE TARTRATE Inactive MS CONTIN 100 MG ORAL TABLET EXTENDED RELEASE 1 by mouth twice a day MS CONTIN 100 MG ORAL TABLET EXTENDED RELEASE MORPHINE SULFATE Inactive ENDOCET 10-325 MG ORAL TABLET 1 by mouth twice a day ENDOCET 10-325 MG ORAL TABLET 3431098 OXYCODONE-ACETAMINOPHEN Inactive HYDROXYZINE HCL 25 MG ORAL TABLET take 1 every 4-6 hours as needed HYDROXYZINE HCL 25 MG ORAL TABLET 039458 HYDROXYZINE HCL Inactive ALPRAZOLAM 2 MG ORAL TABLET 1 tablet by mouth three times daily as needed ALPRAZOLAM 2 MG ORAL TABLET 504154 ALPRAZOLAM Inactive NEXIUM 40 MG ORAL CAPSULE DELAYED RELEASE 1 cap by mouth daily NEXIUM 40 MG ORAL CAPSULE DELAYED RELEASE 576538 ESOMEPRAZOLE MAGNESIUM Inactive Advance Directives Directive Description [...] Measured Encounters Code Encounter Date Provider Facility CPT-28390 Level 4 Est. Patient 16:18:01 CDT Wily Gonzalez [facility] CPT-29997 Level 4 Est. Patient 16:17:36 CDT Wily Gonzalez [facility] CPT-05798 Level 4 Est. Patient 12:51:46 CDT Wily Gonzalez [facility] CPT-26161 Level 4 Est. Patient 10:10:03 CDT Wily Gonzalez [facility] CPT-25047 Level 3 Est. Patient 14:25:57 CDT Wily Gonzalez [facility] CPT-39071 Level 3 Est. Patient 09:51:37 VISUAL C DEVELOPER Wily Gonzalez [facility] CPT-60745 Level 3 Est. Patient 11:07:48 CDT Wily Zhang [facility] CPT-93947 Level 3 Est. Patient 11:24:24 CDT Wily Gonzalez [facility] CPT-50259 Level 3 Est. Patient 15:19:54 VISUAL C DEVELOPER Wily Gonzalez [facility] CPT-14413 Level 3 Est. Patient 10:04:45 CDT Wily Gonzalez [facility] CPT-68589 Level 3 Est. Patient 13:04:06 CDT Wily Gonzalez [facility] CPT-82678 Level 3 Est. Patient 12:23:04 CDT Wily Gonzalez [facility] CPT-40805 Level 3 Est. Patient 15:43:10 VISUAL C DEVELOPER Wily Gonzalez [facility] CPT-22155 Level 3 Est. Patient 16:10:54 CDT Wily Gonzalez [facility] CPT-26229 Level 3 Est. Patient 19:50:51 CDT Wily Gonzalez [facility] CPT-24123 Level 3 Est. Patient 12:02:30 VISUAL C DEVELOPER Wily Gonzalez [facility] CPT-52468 Level 3 Est. Patient 12:03:11 VISUAL C DEVELOPER Wily Gonzalez [facility] CPT-48428 Level 3 Est. Patient 12:01:41 VISUAL C DEVELOPER Wily Gonzalez [facility] CPT-90611 Level 3 Est. Patient 11:51:24 VISUAL C DEVELOPER Wily Gonzalez [facility] CPT-38429 Level 3 Est. Patient 11:58:20 VISUAL C DEVELOPER Wily Gonzalez [facility] CPT-22386 Level 3 Est. Patient 08:31:36 VISUAL C DEVELOPER Wily Gonzalez [facility] CPT-50497 Level 3 Est. Patient 21:57:36 CDT Wily Gonzalez [facility] CPT-57624 Level 3 Est. Patient 10:49:58 CDT Esvin Hudson [facility] CPT-71839 Level 3 Est. Patient 11:22:52 CDT Esvin PAULA [facility] CPT-78789 Level 3 Est. Patient 13:49:41 CDT Esvin Hudson CHAI [facility] CPT-60077 Level 3 Est. Patient 11:54:53 CDT Esvin PAULA [facility] CPT-22395 Level 3 Est. Patient 09:07:11 CDT Esvin PAULA [facility] CPT-90009 Level 3 Est. Patient 13:52:47 CDT Esvin PAULA [facility] CPT-03528 Level 3 Est. Patient 11:26:46 CDT Esvin Hudson CHAI [facility] CPT-38785 Level 3 Est. Patient 10:25:00 VISUAL C DEVELOPER Esvin Hudson CHAI [facility] CPT-05841 Level 3 Est. Patient 11:39:11 VISUAL C DEVELOPER Esvin PAULA [facility] CPT-12875 Level 3 Est. Patient 13:24:24 VISUAL C DEVELOPER Esvin Hudson CHAI [facility] CPT-93394 Level 3 Est. Patient 10:26:13 VISUAL C DEVELOPER Esvin PAULA [facility] CPT-53508 Level 3 Est. Patient 10:21:21 CDT Esvin PAULA [facility] CPT-69322 Level 3 Est. Patient 10:26:30 CDT Esvin PAULA [facility] CPT-21009 Level 3 Est. Patient 09:16:37 CDT Esvin Hudson [facility]-50539 Level 3 Est. Patient 09:06:58 CDT Esvin Tristan CHAI [facility] CPT-22849 Level 3 Est. Patient 10:05:29 CDT Esvin Tristan CHAI [facility] CPT-42884 Level 3 Est. Patient 10:38:45 CDT Esvin Hudson [facility] CPT-53571 Level 3 Est. Patient 10:09:45 CDT Esvin Hudson [facility] CPT-19164 Level 3 Est. Patient 09:26:37 CDT Esvin Hudson [facility] CPT-63686 Level 3 Est. Patient 10:34:42 VISUAL C DEVELOPER Esvin [facility] CPT-35076 Level 3 Est. Patient 10:45:47 VISUAL C DEVELOPER Esvin [facility] CPT-48553 Level 3 Est. Patient 10:45:22 VISUAL C DEVELOPER Esvin Hudson [facility] CPT-47838 Level 3 Est. Patient 14:18:30 VISUAL C DEVELOPER Esvin Hudson [facility] CPT-48249 Level 3 Est. Patient 13:53:29 VISUAL C DEVELOPER Esvin Hudson [facility] CPT-62214 Level 3 Est. Patient 10:34:11 CDT Esvin Hudson [facility] Procedures Code Procedure Name Date Entry Date Standard Description CPT-08676 Smoking Cessation counseling 10:10:03 CDT CPT-55846 Smoking Cessation counseling 14:25:57 CDT CPT-90917 Bone Density - XRAY USE ONLY 11:29:32 CDT CPT-94562 LS spine AP and Lat - XRAY USE ONLY 10:07:43 VISUAL C DEVELOPER 10/26 CPT-02607 Venipuncture Draw Fee 09:51:16 VISUAL C DEVELOPER CPT-04029 Smoking Cessation counseling 09:39:47 VISUAL C DEVELOPER CPT-G0438 Initial Annual Wellness Exam 09:37:28 VISUAL C DEVELOPER CPT-76658 Venipuncture Draw Fee 09:26:55 CDT CPT-82278 Venipuncture Draw Fee 11:55:52 CDT CPT-51246 Spec Collection and Handling Fee 09:16:37 CDT CPT-60781 Venipuncture Draw Fee 09:16:37 CDT
--- OUTSIDE RECORDS SUMMARY | 2018-02-26 15:33 | XMS REPORT | Clinical Summary ---
Author Author Admin, E Organization [employer] Address Unknown Phone Unavailable Allergies, Adverse Reactions, [...] sprays each nostril every day FLUTICASONE PROPIONATE [id number] Active Wily Gonzalez DO Active CLEMASTINE FUMARATE 1.34 MG ORAL TABS 1 tab PO BID CLEMASTINE FUMARATE 97635631346 No Longer Active Wily Gonzalez DO Active FLOMAX 0.4 MG CAPS 1 capsule in the evening for night time urination. TAMSULOSIN HCL 68684739128 No Longer Active Wily Gonzalez DO Active PROTONIX 40 MG TBEC 1 po daily PANTOPRAZOLE SODIUM 49593704783 Active Wily Gonzalez DO Active HYDROXYZINE HCL 25 MG TAB 1 two times a day as needed for anxiety HYDROXYZINE HCL 54030170725 No Longer Active Wily Gonzalez DO Active ANUSOL-HC 25 MG SUPPOSITORY 1 rectally every 12 hours for irritation HYDROCORTISONE NAEL (RECTAL) 69442615786 No Longer Active Wily Gonzalez DO Active HYDROXYZINE HCL 25 MG TABS Take one (1) tablet by mouth twice a day HYDROXYZINE HCL 46431416945 No Longer Active Wily Gonzalez DO Active ZIAC 2.5-6.25 MG TAB 1 tablet daily for high blood pressure 10/27 BISOPROLOL-HCTZ 54431828571 No Longer Active Wily Gonzalez DO Active GULCGDS-CFQESBXCI-PHLD 167-83-8 MG TABS 1 tab po daily CALCIUM -MAGNESIUM-ZINC 01472392222 Active Wily Gonzalez DO Active NYSTATIN 427003 UNIT/GM CREA apply to rash TID PRN NYSTATIN 46697154580 Active Wily Gonzalez DO Active ZIAC 2.5-6.25 MG TAB 1 tablet every morning for high blood pressure BISOPROLOL-HCTZ 69652747414 No Longer Active Wily Gonzalez DO Active AMOXICILLIN 500 MG CAPS Take one (1) tablet by mouth three times a day 05/05 AMOXICILLIN 70354181273 No Longer Active Wily Gonzalez DO Active MORPHINE SULFATE ER 100 MG CR-TABS Take one (1) tablet by mouth twice a day MORPHINE SULFATE 97560081821 No Longer Active Wily Gonzalez DO Active MORPHINE SULFATE ER 100 MG [id number] 1 capsule twice daily for chronic pain MORPHINE SULFATE 64890670629 Active Wily Gonzalez DO Active CIALIS 10 MG TABS 1 every 72 hours as needed TADALAFIL 10336754118 No Longer Active Esvin PAULA Active FLONASE 50 MCG/ACT SUSP 2 SPRAY EACH NARE DAILY FLUTICASONE PROPIONATE 12959735773 No Longer Active Esvin PAULA Active CYCLOBENZAPRINE HCL 10 MG TABS Take one (1) tablet by mouth three times a day CYCLOBENZAPRINE HCL 68649862431 Active Wily Gonzalez DO Active OPANA ER (CRUSH RESISTANT) 40 MG [id number] Take one (1) tablet by mouth twice a day OXYMORPHONE HCL 74783972951 No Longer Active Esvin PAULA Active POLY-IRON 150 150 MG CAPS 1 tab po bid POLYSACCHARIDE IRON COMPLEX 48689574559 Active Wily Gonzalez DO Active PROAIR HFA 108 (90 BASE) MCG/ACT AERS 2 puffs every four hours as needed ALBUTEROL SULFATE 23180336639 No Longer Active Esvin PAULA Active CLEARLAX POWD 17gm q day prn constipation POLYETHYLENE GLYCOL 3350 05440436909 Active Kaylen Leigh MA Active MORPHINE SULFATE ER 100 MG [id number] Take one (1) tablet by mouth twice a day MORPHINE SULFATE 14957179586 No Longer Active Esvin PAULA Active FLEXERIL 10 MG TAB 1 tablet by mouth 3 times daily as needed CYCLOBENZAPRINE HCL 76121395632 No Longer Active Esvin PAULA Active CELEBREX 200 MG CAPS 1 tablet by mouth twice daily with meals CELECOXIB 53519926759 No Longer Active Esvin PAULA Active NEXIUM 40 MG CPDR 1 cap daily ESOMEPRAZOLE MAGNESIUM 50909512984 No Longer Active Esvin PAULA Active MOBIC 15 MG TABS 1 tab daily MELOXICAM 25223020197 No Longer Active Esvin PAULA Active LISINOPRIL 20 MG TABS Take 1 tablet by mouth daily LISINOPRIL 23846840879 No Longer Active Esvin PAULA Active DICLOFENAC SODIUM 50 MG TBEC 1 tablet by mouth four times daily DICLOFENAC SODIUM 09292998836 No Longer Active Paula Cooney RN Active VERAMYST 27.5 MCG/SPRAY SUSP 2 spray each nare daily FLUTICASONE FUROATE 18626283621 No Longer Active Megan Vargas RN Active ENDOCET 10-325 MG TABS Take one (1) tablet by mouth three times a day OXYCODONE-ACETAMINOPHEN 78960594447 Active Wily Gonzalez DO Active ALPRAZOLAM 2 MG TABS Take one (1) tablet by mouth three times a day ALPRAZOLAM 74719220813 Active Marylou Melissa RPT,RMA Active NEXIUM 40 MG CPDR 1 cap by mouth daily ESOMEPRAZOLE MAGNESIUM 02263046593 No Longer Active Esvin PAULA Active ALPRAZOLAM 2 MG TABS 1 tablet by mouth three times daily as needed ALPRAZOLAM 22927677003 No Longer Active Esvin PAULA Active HYDROXYZINE HCL 25 MG TAB take 1 every 4-6 hours as needed 07/01 HYDROXYZINE HCL 38705846986 No Longer Active Esvin PAULA Active ENDOCET 10-325 MG TABS 1 by mouth twice a day OXYCODONE-ACETAMINOPHEN 86657425195 No Longer Active Esvin PAULA Active MS CONTIN 100 MG [id number] 1 by mouth twice a day MORPHINE SULFATE 62288546542 No Longer Active Esvin PAULA Active SUDAFED 30 MG TAB 1-2 every 4-6 hours as needed PSEUDOEPHEDRINE HCL 52822724293 Active Marylou Melissa RPT,RMA Active VERAMYST 27.5 MCG/SPRAY SUSP 2 spray each nare daily VERAMYST 27.5 MCG/SPRAY SUSP FLUTICASONE FUROATE Inactive DICLOFENAC SODIUM 50 MG TBEC 1 tablet by mouth four times daily DICLOFENAC SODIUM 50 MG TBEC 949376 DICLOFENAC SODIUM Inactive LISINOPRIL 20 MG TABS Take 1 tablet by mouth daily LISINOPRIL 20 MG TABS 334235 LISINOPRIL Inactive MOBIC 15 MG TABS 1 tab daily MOBIC 15 MG TABS 147527 MELOXICAM Inactive NEXIUM 40 MG CPDR 1 cap daily NEXIUM 40 MG CPDR 419113 ESOMEPRAZOLE MAGNESIUM Inactive CELEBREX 200 MG CAPS 1 tablet by mouth twice daily with meals CELEBREX 200 MG CAPS 451444 CELECOXIB Inactive FLEXERIL 10 MG TAB 1 [...] a day 05/05 AMOXICILLIN 500 MG CAPS 366468 AMOXICILLIN Inactive ZIAC 2.5-6.25 MG TAB 1 tablet every morning for high blood pressure ZIAC 2.5-6.25 MG TAB 566488 BISOPROLOL-HCTZ Inactive ZIAC 2.5-6.25 MG TAB 1 tablet daily for high blood pressure 10/27 ZIAC 2.5-6.25 MG TAB 661656 BISOPROLOL-HCTZ Inactive HYDROXYZINE HCL 25 MG TABS Take one (1) tablet by mouth twice a day HYDROXYZINE HCL 25 MG TABS 855209 HYDROXYZINE HCL Inactive ANUSOL-HC 25 MG SUPPOSITORY 1 rectally every 12 hours for irritation ANUSOL-HC 25 MG SUPPOSITORY 4401046 HYDROCORTISONE NAEL (RECTAL ) Inactive HYDROXYZINE HCL 25 MG TAB 1 two times a day as needed for anxiety HYDROXYZINE HCL 25 MG TAB 183254 HYDROXYZINE HCL Inactive FLOMAX 0.4 MG CAPS 1 capsule in the evening for night time urination. FLOMAX 0.4 MG CAPS 294489 TAMSULOSIN HCL Inactive CLEMASTINE FUMARATE 1.34 MG ORAL TABS 1 tab PO BID CLEMASTINE FUMARATE 1.34 MG ORAL TABS 359999 CLEMASTINE FUMARATE Inactive MS CONTIN 100 MG [id number] 1 by mouth twice a day MS CONTIN 100 MG [id number] MORPHINE SULFATE Inactive ENDOCET 10-325 MG TABS 1 by mouth twice a day ENDOCET 10-325 MG TABS 4399945 OXYCODONE-ACETAMINOPHEN Inactive HYDROXYZINE HCL 25 MG TAB take 1 every 4-6 hours as needed 07/01 HYDROXYZINE HCL 25 MG TAB 471257 HYDROXYZINE HCL Inactive ALPRAZOLAM 2 MG TABS 1 tablet by mouth three times daily as needed ALPRAZOLAM 2 MG TABS 481610 ALPRAZOLAM Inactive NEXIUM 40 MG CPDR 1 cap by mouth daily NEXIUM 40 MG CPDR 907488 ESOMEPRAZOLE MAGNESIUM Inactive Advance Directives Directive Description [...] ... - Chemistry sodium, serum 138 mmol/L 678-987 1049/04/13 potassium, serum 4.9 mmol/L 3.5-5.2 chloride, serum [...] 11.6-14.8 platelet count 227 10^3/MM^3 10*3/mm3 142-424 Lab Report: Comp. Metabolic Panel, Lipid Panel, Thyroid Stimulating Horm ... - Chemistry sodium, serum 140 mmol/L 775-247 5951/03/25 carbon dioxide, venous blood 31.3 mmol/L 21.0-32.0 potassium, serum 4.0 mmol/L 3.5-5.2 chloride, serum 101 mmol/L 98-107 blood glucose 96 mg/dL 65-110 urea nitrogen, blood 7 mg/dL 7-18 creatinine, serum 0.94 mg/dL 0.55-1.30 alanine aminotransferase (SGPT), serum 23 U/L 12-78 aspartate aminotransferase (SGOT), serum 21 U/L 15-37 calcium, serum 8.9 mg/dL 8.5-10.1 bilirubin, serum, total 0.30 mg/dL 0.00-1.00 cholesterol, serum 169 mg/dL 223-514 1201/03/25 triglyceride, serum, fasting 143 mg/dL 30-200 HDL [...] 5.0-8.5 Encounters Code Encounter Date Provider Facility CPT-69483 Level 3 Est. Patient 11:24:24 CDT Wily W Carlos [facility] CPT-72026 Level 3 Est. Patient 15:19:54 SWAMPER Wily Gonzalez [facility] CPT-27482 Level 3 Est. Patient 10:04:45 CDT Wily Gonzalez DO [facility] CPT-59950 Level 3 Est. Patient 13:04:06 CDT Wily Gonzalez [facility] CPT-07088 Level 3 Est. Patient 12:23:04 CDT Wily Gonzalez [facility] CPT-38195 Level 3 Est. Patient 15:43:10 SWAMPER Wily Gonzalez [facility] CPT-91085 Level 3 Est. Patient 16:10:54 CDT Wily Gonzalez [facility] CPT-36348 Level 3 Est. Patient 19:50:51 CDT Wily Gonzalez [facility] CPT-65080 Level 3 Est. Patient 12:02:30 SWAMPER Wily Gonzalez [facility] CPT-92225 Level 3 Est. Patient 12:03:11 SWAMPER Wily Gonzalez [facility] CPT-45114 Level 3 Est. Patient 12:01:41 SWAMPER Wily Gonzalez [facility] CPT-98459 Level 3 Est. Patient 11:51:24 SWAMPER Wily Gonzalez [facility] CPT-33132 Level 3 Est. Patient 11:58:20 SWAMPER Wily Gonzalez [facility] CPT-96937 Level 3 Est. Patient 08:31:36 SWAMPER Wily Gonzalez [facility] CPT-81310 Level 3 Est. Patient 21:57:36 CDT Wily Gonzalez [facility] CPT-33762 Level 3 Est. Patient 10:49:58 CDT Esvin Hudson [facility] CPT-87227 Level 3 Est. Patient 11:22:52 CDT Esvin PAULA [facility] CPT-67416 Level 3 Est. Patient 13:49:41 CDT Esvin PAULA [facility]-03709 Level 3 Est. Patient 11:54:53 CDT Esvin PAULA [facility] CPT-89135 Level 3 Est. Patient 09:07:11 CDT Esvin PAULA [facility] CPT-86915 Level 3 Est. Patient 13:52:47 CDT Esvin PAULA [facility] CPT-60503 Level 3 Est. Patient 11:26:46 CDT Esvin Hudson CHAI [facility] CPT-15452 Level 3 Est. Patient 10:25:00 SWAMPER Esvin Hudson CHAI [facility] CPT-62509 Level 3 Est. Patient 11:39:11 SWAMPER Esvin PAULA [facility] CPT-63506 Level 3 Est. Patient 13:24:24 SWAMPER Esvin PAULA [facility] CPT-13428 Level 3 Est. Patient 10:26:13 SWAMPER Esvin PAULA [facility] CPT-64402 Level 3 Est. Patient 10:21:21 CDT Esvin PAULA [facility] CPT-90058 Level 3 Est. Patient 10:26:30 CDT Esvin PAULA [facility] CPT-86597 Level 3 Est. Patient 09:16:37 CDT Esvin Hudson [facility]-77310 Level 3 Est. Patient 09:06:58 CDT Esvin PAULA [facility] CPT-22038 Level 3 Est. Patient 10:05:29 CDT Esvin Tristan CHAI [facility] CPT-00527 Level 3 Est. Patient 10:38:45 CDT Esvin Tristan PA [facility] CPT-80868 Level 3 Est. Patient 10:09:45 CDT Esvin Tristan PA [facility] CPT-07326 Level 3 Est. Patient 09:26:37 CDT Esvin Tristan [facility] CPT-81820 Level 3 Est. Patient 10:34:42 SWAMPER Esvin Tristan [facility] CPT-44609 Level 3 Est. Patient 10:45:47 SWAMPER Esvin Tristan [facility] CPT-47576 Level 3 Est. Patient 10:45:22 SWAMPER Esvin Brunswick [facility] CPT-46728 Level 3 Est. Patient 14:18:30 SWAMPER Esvin Brunswick [facility] CPT-63361 Level 3 Est. Patient 13:53:29 SWAMPER Esvin Brunswick [facility] CPT-14477 Level 3 Est. Patient 10:34:11 CDT Esvin Brunswick [facility] Procedures Code Procedure Name Date Entry Date Standard Description CPT-67490 Venipuncture Draw Fee 09:26:55 CDT CPT-25386 Venipuncture Draw Fee 11:55:52 CDT CPT-57160 Spec Collection and Handling Fee 09:16:37 CDT CPT-17935 Venipuncture Draw Fee 09:16:37 CDT
--- OUTSIDE RECORDS SUMMARY | 2018-02-26 15:34 | XMS REPORT | Clinical Summary ---
Author Author Admin, E Organization [employer] Address Unknown Phone Unavailable Allergies, Adverse Reactions, [...] Generic Name NDC Status Provider Patient Instruction [id number] 167-83-8 MG TABS 1 tab po daily ZNONIVM-YUJTULNHA-IUOX [id number] No Longer Active Wily Gonzalez DO Active NYSTATIN 588487 UNIT/GM CREA apply to rash TID PRN NYSTATIN 73868703416 No Longer Active Wily Gonzalez DO Active POLY-IRON 150 150 MG CAPS 1 tab po bid POLYSACCHARIDE IRON COMPLEX 33488239832 No Longer Active Wily Gonzalez DO Active FLONASE ALLERGY RELIEF 50 MCG/ACT NASAL SUSP 2 sprays each nostril every day FLUTICASONE PROPIONATE 58905206093 Active Wily Gonzalez DO Active CLEMASTINE FUMARATE 1.34 MG ORAL TABS 1 tab PO BID CLEMASTINE FUMARATE 95332751552 No Longer Active Wily Gonzalez DO Active FLOMAX 0.4 MG CAPS 1 capsule in the evening for night time urination. TAMSULOSIN HCL 62338102223 No Longer Active Wily Gonzalez DO Active PROTONIX 40 MG TBEC 1 po daily PANTOPRAZOLE SODIUM 62682766499 Active Agnieszka Yeung Active HYDROXYZINE HCL 25 MG TAB 1 two times a day as needed for anxiety HYDROXYZINE HCL 81745296601 No Longer Active Wily Gonzalez DO Active ANUSOL-HC 25 MG SUPPOSITORY 1 rectally every 12 hours for irritation HYDROCORTISONE NAEL (RECTAL) 15447129622 No Longer Active Wily Gonzalez DO Active HYDROXYZINE HCL 25 MG TABS Take one (1) tablet by mouth twice a day HYDROXYZINE HCL 36901298443 No Longer Active Wily Gonzalez DO Active ZIAC 2.5-6.25 MG TAB 1 tablet daily for high blood pressure 10/27 BISOPROLOL-HCTZ 23025759430 No Longer Active Wily Gonzalez DO Active ZIAC 2.5-6.25 MG TAB 1 tablet every morning for high blood pressure BISOPROLOL-HCTZ 71290699200 No Longer Active Wily Gonzalez DO Active AMOXICILLIN 500 MG CAPS Take one (1) tablet by mouth three times a day 05/05 AMOXICILLIN 29290580678 No Longer Active Wily Gonzalez DO Active MORPHINE SULFATE ER 100 MG CR-TABS Take one (1) tablet by mouth twice a day MORPHINE SULFATE 23156234679 No Longer Active Wily Gonzalez DO Active MORPHINE SULFATE ER 100 MG [id number] 1 capsule twice daily for chronic pain MORPHINE SULFATE 65713994191 Active Marylou Melissa RPT,RMA Active CIALIS 10 MG TABS 1 every 72 hours as needed TADALAFIL 98104123207 No Longer Active Esvin PAULA Active FLONASE 50 MCG/ACT SUSP 2 SPRAY EACH NARE DAILY FLUTICASONE PROPIONATE 70113082343 No Longer Active Esvin PAULA Active CYCLOBENZAPRINE HCL 10 MG TABS Take one (1) tablet by mouth three times a day CYCLOBENZAPRINE HCL 38126018319 Active Wily Gonzalez DO Active OPANA ER (CRUSH RESISTANT) 40 MG [id number] Take one (1) tablet by mouth twice a day OXYMORPHONE HCL 87913762918 No Longer Active Esvin PAULA Active PROAIR HFA 108 (90 BASE) MCG/ACT AERS 2 puffs every four hours as needed ALBUTEROL SULFATE 09301746573 No Longer Active Esvin PAULA Active CLEARLAX POWD 17gm q day prn constipation POLYETHYLENE GLYCOL 3350 19948030675 Active Kaylen Leigh MA Active MORPHINE SULFATE ER 100 MG [id number]-LSB Take one (1) tablet by mouth twice a day MORPHINE SULFATE 12126428996 No Longer Active Esvin PAULA Active FLEXERIL 10 MG TAB 1 tablet by mouth 3 times daily as needed CYCLOBENZAPRINE HCL 79231374492 No Longer Active Esvin PAULA Active CELEBREX 200 MG CAPS 1 tablet by mouth twice daily with meals CELECOXIB 50836356087 No Longer Active Esvin PAULA Active NEXIUM 40 MG CPDR 1 cap daily ESOMEPRAZOLE MAGNESIUM 56865953280 No Longer Active Esvin PAULA Active MOBIC 15 MG TABS 1 tab daily MELOXICAM 55099920808 No Longer Active Esvin PAULA Active LISINOPRIL 20 MG TABS Take 1 tablet by mouth daily LISINOPRIL 35519516332 No Longer Active Esvin PAULA Active DICLOFENAC SODIUM 50 MG TBEC 1 tablet by mouth four times daily DICLOFENAC SODIUM 65050800430 No Longer Active Paula Cooney RN Active VERAMYST 27.5 MCG/SPRAY SUSP 2 spray each nare daily FLUTICASONE FUROATE 81929197474 No Longer Active Megan Alicia CARVAJAL Active ENDOCET 10-325 MG TABS Take one (1) tablet by mouth three times a day OXYCODONE-ACETAMINOPHEN 91220976761 Active Marylou Melissa RPT,RMA Active ALPRAZOLAM 2 MG TABS Take one (1) tablet by mouth three times a day ALPRAZOLAM 18399704119 Active Kaylen Leigh MA Active NEXIUM 40 MG CPDR 1 cap by mouth daily ESOMEPRAZOLE MAGNESIUM 82312829141 No Longer Active Esvin PAULA Active ALPRAZOLAM 2 MG TABS 1 tablet by mouth three times daily as needed ALPRAZOLAM 54206269596 No Longer Active Esvin PAULA Active HYDROXYZINE HCL 25 MG TAB take 1 every 4-6 hours as needed 07/01 HYDROXYZINE HCL 02541909981 No Longer Active Esvin PAULA Active ENDOCET 10-325 MG TABS 1 by mouth twice a day OXYCODONE-ACETAMINOPHEN 58342586314 No Longer Active Esvin PAULA Active MS CONTIN 100 MG [id number]-JWT 1 by mouth twice a day MORPHINE SULFATE 19494269283 No Longer Active Esvin PAULA Active SUDAFED 30 MG TAB 1-2 every 4-6 hours as needed PSEUDOEPHEDRINE HCL 49204458985 Active Marylou Melissa RPT,RMA Active VERAMYST 27.5 MCG/SPRAY SUSP 2 spray each nare daily VERAMYST 27.5 MCG/SPRAY SUSP FLUTICASONE FUROATE Inactive DICLOFENAC SODIUM 50 MG TBEC 1 tablet by mouth four times daily DICLOFENAC SODIUM 50 MG TBEC 692896 DICLOFENAC SODIUM Inactive LISINOPRIL 20 MG TABS Take 1 tablet by mouth daily LISINOPRIL 20 MG TABS 889136 LISINOPRIL Inactive MOBIC 15 MG TABS 1 tab daily MOBIC 15 MG TABS 393134 MELOXICAM Inactive NEXIUM 40 MG CPDR 1 cap daily NEXIUM 40 MG CPDR 630788 ESOMEPRAZOLE MAGNESIUM Inactive CELEBREX 200 MG CAPS 1 tablet by mouth twice daily with meals CELEBREX 200 MG CAPS 658462 CELECOXIB Inactive FLEXERIL 10 MG TAB 1 [...] a day 05/05 AMOXICILLIN 500 MG CAPS 923249 AMOXICILLIN Inactive ZIAC 2.5-6.25 MG TAB 1 tablet every morning for high blood pressure ZIAC 2.5-6.25 MG TAB 764277 BISOPROLOL-HCTZ Inactive ZIAC 2.5-6.25 MG TAB 1 tablet daily for high blood pressure 10/27 ZIAC 2.5-6.25 MG TAB 589497 BISOPROLOL-HCTZ Inactive HYDROXYZINE HCL 25 MG TABS Take one (1) tablet by mouth twice a day HYDROXYZINE HCL 25 MG TABS 119174 HYDROXYZINE HCL Inactive ANUSOL-HC 25 MG SUPPOSITORY 1 rectally every 12 hours for irritation ANUSOL-HC 25 MG SUPPOSITORY 2221207 HYDROCORTISONE NAEL (RECTAL ) Inactive HYDROXYZINE HCL 25 MG TAB 1 two times a day as needed for anxiety HYDROXYZINE HCL 25 MG TAB 165910 HYDROXYZINE HCL Inactive FLOMAX 0.4 MG CAPS 1 capsule in the evening for night time urination. FLOMAX 0.4 MG CAPS 925919 TAMSULOSIN HCL Inactive CLEMASTINE FUMARATE 1.34 MG ORAL TABS 1 tab PO BID CLEMASTINE FUMARATE 1.34 MG ORAL TABS 284690 CLEMASTINE FUMARATE Inactive POLY-IRON 150 150 MG CAPS 1 tab po bid POLY-IRON 150 150 MG CAPS POLYSACCHARIDE IRON COMPLEX Inactive NYSTATIN 634813 UNIT/GM CREA apply to rash TID PRN NYSTATIN 801964 UNIT/GM CREA 189111 NYSTATIN Inactive GDXDEFS-XBEOCGQIY-RAKG 167-83-8 MG TABS 1 tab po daily GVEAPTS-OOPCZEARX-HTXW 167-83-8 MG TABS [id number] Inactive MS CONTIN 100 MG YS82C-YWG 1 by mouth twice a day MS CONTIN 100 MG VG77D-TSI MORPHINE SULFATE Inactive ENDOCET 10-325 MG TABS 1 by mouth twice a day ENDOCET 10-325 MG TABS 3383116 OXYCODONE-ACETAMINOPHEN Inactive HYDROXYZINE HCL 25 MG TAB take 1 every 4-6 hours as needed 07/01 HYDROXYZINE HCL 25 MG TAB 103455 HYDROXYZINE HCL Inactive ALPRAZOLAM 2 MG TABS 1 tablet by mouth three times daily as needed ALPRAZOLAM 2 MG TABS 512276 ALPRAZOLAM Inactive NEXIUM 40 MG CPDR 1 cap by mouth daily NEXIUM 40 MG CPDR 686791 ESOMEPRAZOLE MAGNESIUM Inactive Advance Directives Directive Description [...] ... - Chemistry sodium, serum 140 mmol/L 863-701 9792/03/25 carbon dioxide, venous blood 31.3 mmol/L 21.0-32.0 potassium, serum 4.0 mmol/L 3.5-5.2 chloride, serum 101 mmol/L 98-107 blood glucose 96 mg/dL 65-110 urea nitrogen, blood 7 mg/dL 7-18 creatinine, serum 0.94 mg/dL 0.55-1.30 alanine aminotransferase (SGPT), serum 23 U/L 12-78 aspartate aminotransferase (SGOT), serum 21 U/L 15-37 calcium, serum 8.9 mg/dL 8.5-10.1 bilirubin, serum, total 0.30 mg/dL 0.00-1.00 cholesterol, serum 169 mg/dL 960-087 0066/03/25 triglyceride, serum, fasting 143 mg/dL 30-200 HDL [...] 5.0-8.5 Encounters Code Encounter Date Provider Facility CPT-42841 Level 3 Est. Patient 11:07:48 CDT Wily Gonzalez [facility] CPT-71318 Level 3 Est. Patient 11:24:24 CDT Wily Gonzalez [facility] CPT-64374 Level 3 Est. Patient 15:19:54 REPORTING MANAGER Wily Gonzalez [facility] CPT-22273 Level 3 Est. Patient 10:04:45 CDT Wily Gonzalez [facility] CPT-95726 Level 3 Est. Patient 13:04:06 CDT Wily Zhang [facility] CPT-18720 Level 3 Est. Patient 12:23:04 CDT Wily Gonzalez [facility] CPT-67653 Level 3 Est. Patient 15:43:10 REPORTING MANAGER Wily Gonzalez [facility] CPT-94006 Level 3 Est. Patient 16:10:54 CDT Wily Zhang [facility] CPT-48441 Level 3 Est. Patient 19:50:51 CDT Wily Gonzalez [facility] CPT-31463 Level 3 Est. Patient 12:02:30 REPORTING MANAGER Wily Gonzalez [facility] CPT-03536 Level 3 Est. Patient 12:03:11 REPORTING MANAGER Wily Gonzalez [facility] CPT-51378 Level 3 Est. Patient 12:01:41 REPORTING MANAGER Wily Gonzalez [facility] CPT-25416 Level 3 Est. Patient 11:51:24 REPORTING MANAGER Wily Gonzalez [facility] CPT-62135 Level 3 Est. Patient 11:58:20 REPORTING MANAGER Wily Vicente Gonzalez [facility] CPT-27798 Level 3 Est. Patient 08:31:36 REPORTING MANAGER Wily Zhang Carlos [facility] CPT-27281 Level 3 Est. Patient 21:57:36 CDT Wily Vicente Carlos ARMENDARIZ [facility] CPT-39224 Level 3 Est. Patient 10:49:58 CDT Esvin PAULA [facility] CPT-95685 Level 3 Est. Patient 11:22:52 CDT Esvin PAULA [facility] CPT-20728 Level 3 Est. Patient 13:49:41 CDT Esvin PAULA [facility] CPT-11494 Level 3 Est. Patient 11:54:53 CDT Esvin PAULA [facility] CPT-94339 Level 3 Est. Patient 09:07:11 CDT Esvin PAULA [facility] CPT-03853 Level 3 Est. Patient 13:52:47 CDT Esvin PAULA [facility] CPT-33804 Level 3 Est. Patient 11:26:46 CDT Esvin PAULA [facility] CPT-81911 Level 3 Est. Patient 10:25:00 REPORTING MANAGER Esvin PAULA [facility] CPT-74772 Level 3 Est. Patient 11:39:11 REPORTING MANAGER Esvin PAULA [facility] CPT-88316 Level 3 Est. Patient 13:24:24 REPORTING MANAGER Esvin PAULA [facility] CPT-87987 Level 3 Est. Patient 10:26:13 REPORTING MANAGER Esvin PAULA [facility] CPT-39817 Level 3 Est. Patient 10:21:21 CDT Esivn PAULA [facility] CPT-42692 Level 3 Est. Patient 10:26:30 CDT Esvin PAULA [facility] CPT-85003 Level 3 Est. Patient 09:16:37 CDT Esvin PAULA [facility] CPT-01581 Level 3 Est. Patient 09:06:58 CDT Esvin PAULA [facility] CPT-40267 Level 3 Est. Patient 10:05:29 CDT Esvin PAULA [facility] CPT-42877 Level 3 Est. Patient 10:38:45 CDT Esvin PAULA [facility] CPT-87034 Level 3 Est. Patient 10:09:45 CDT Esvin PAULA [facility] CPT-43381 Level 3 Est. Patient 09:26:37 CDT Esvin PAULA [facility] CPT-76284 Level 3 Est. Patient 10:34:42 REPORTING MANAGER Esvin Tristan PAULA [facility] CPT-19462 Level 3 Est. Patient 10:45:47 REPORTING MANAGER Esvin Hudson [facility] CPT-78641 Level 3 Est. Patient 10:45:22 REPORTING MANAGER Esvin Hudson [facility] CPT-83269 Level 3 Est. Patient 14:18:30 REPORTING MANAGER Esvin Hudson [facility] CPT-71414 Level 3 Est. Patient 13:53:29 REPORTING MANAGER Esvin Hudson [facility] CPT-02740 Level 3 Est. Patient 10:34:11 CDT Esvin Hudson [facility] Procedures Code Procedure Name Date Entry Date Standard Description CPT-71237 Venipuncture Draw Fee 09:26:55 CDT CPT-64389 Venipuncture Draw Fee 11:55:52 CDT CPT-59234 Spec Collection and Handling Fee 09:16:37 CDT CPT-69916 Venipuncture Draw Fee 09:16:37 CDT
--- OUTSIDE RECORDS SUMMARY | 2018-02-26 15:35 | XMS REPORT | Clinical Summary ---
Author Author Admin, E Organization [facility] Address Unknown Phone Unavailable Allergies, Adverse Reactions, [...] Take one by mouth daily CALCIUM- MAGNESIUM 71675237906 Active Wily Gonzalez DO Active FOSAMAX 70 MG TABS 1 po qweek. Take 30min prior to first food/drink. Avoid lying down x 1 hour. ALENDRONATE SODIUM 28909614038 Active Rose Bang Active CALCIUM 600 MG ORAL TABS 1 po q day CALCIUM 21690517777 Active Rose Bang Active CHANTIX 1 MG TABS 1 twice a day VARENICLINE TARTRATE 19883838557 Active Wily Gonzalez DO Active TRIAMCINOLONE ACETONIDE 0.1 % CREA Apply to affected area 3 times daily for up to 2 weeks TRIAMCINOLONE ACETONIDE 07373344554 Active Wily Gonzalez DO Active [id number]-HXUM 167-83-8 MG TABS 1 tab po daily [id number]-[id number] 06967102081 No Longer Active Wily Gonzalez DO Active NYSTATIN 208156 UNIT/GM CREA apply to rash TID PRN NYSTATIN 72585154405 No Longer Active Wily Gonzalez DO Active POLY-IRON 150 150 MG CAPS 1 tab po bid POLYSACCHARIDE IRON COMPLEX 72639330459 No Longer Active Wily Gonzalez DO Active FLONASE ALLERGY RELIEF 50 MCG/ACT NASAL SUSP 2 sprays each nostril every day FLUTICASONE PROPIONATE 62305450060 Active Jodi Lucas APRN Active CLEMASTINE FUMARATE 1.34 MG ORAL TABS 1 tab PO BID CLEMASTINE FUMARATE 98564691625 No Longer Active Wily Gonzalez DO Active FLOMAX 0.4 MG CAPS 1 capsule in the evening for night time urination. TAMSULOSIN HCL 48084201413 No Longer Active Wily Gonzalez DO Active PROTONIX 40 MG TBEC 1 po daily PANTOPRAZOLE SODIUM 57911105159 Active Agnieszka Yeung Active HYDROXYZINE HCL 25 MG TAB 1 two times a day as needed for anxiety HYDROXYZINE HCL 51040952756 No Longer Active Wiyl Gonzalez DO Active ANUSOL-HC 25 MG SUPPOSITORY 1 rectally every 12 hours for irritation HYDROCORTISONE NAEL (RECTAL) 60181287872 No Longer Active Wily Gonzalez DO Active HYDROXYZINE HCL 25 MG TABS Take one (1) tablet by mouth twice a day HYDROXYZINE HCL 57709914686 No Longer Active Wily Gonzalez DO Active ZIAC 2.5-6.25 MG TAB 1 tablet daily for high blood pressure 10/27 BISOPROLOL-HCTZ 28978122810 No Longer Active Wily Gonzalez DO Active ZIAC 2.5-6.25 MG TAB 1 tablet every morning for high blood pressure BISOPROLOL-HCTZ 17458913535 No Longer Active Wily Gonzalez DO Active AMOXICILLIN 500 MG CAPS Take one (1) tablet by mouth three times a day 05/05 AMOXICILLIN 97654129863 No Longer Active Wily Gonzalez DO Active MORPHINE SULFATE ER 100 MG CR-TABS Take one (1) tablet by mouth twice a day MORPHINE SULFATE 70675117659 No Longer Active Wily Gonzalez DO Active MORPHINE SULFATE ER 100 MG [id number] 1 capsule twice daily for chronic pain MORPHINE SULFATE 00329949151 Active Wily Gonzalez DO Active CIALIS 10 MG TABS 1 every 72 hours as needed TADALAFIL 89080545330 No Longer Active Esvin PAULA Active FLONASE 50 MCG/ACT SUSP 2 SPRAY EACH NARE DAILY FLUTICASONE PROPIONATE 84339553173 No Longer Active Esvin PAULA Active CYCLOBENZAPRINE HCL 10 MG TABS Take one (1) tablet by mouth three times a day CYCLOBENZAPRINE HCL 20388091083 Active Lisa Berkowitz Active OPANA ER (CRUSH RESISTANT) 40 MG [id number] Take one (1) tablet by mouth twice a day OXYMORPHONE HCL 36934848803 No Longer Active Esvin PAULA Active PROAIR HFA 108 (90 BASE) MCG/ACT AERS 2 puffs every four hours as needed ALBUTEROL SULFATE 27695169899 No Longer Active Esvin PAULA Active CLEARLAX POWD 17gm q day prn constipation POLYETHYLENE GLYCOL 3350 23891466616 Active Wily Gonzalez DO Active MORPHINE SULFATE ER 100 MG [id number] Take one (1) tablet by mouth twice a day MORPHINE SULFATE 87440126400 No Longer Active Esvin PAULA Active FLEXERIL 10 MG TAB 1 tablet by mouth 3 times daily as needed CYCLOBENZAPRINE HCL 03378242537 No Longer Active Esvin PAULA Active CELEBREX 200 MG CAPS 1 tablet by mouth twice daily with meals CELECOXIB 69637236288 No Longer Active Esvin PAULA Active NEXIUM 40 MG CPDR 1 cap daily ESOMEPRAZOLE MAGNESIUM 29944167250 No Longer Active Esvin PAULA Active MOBIC 15 MG TABS 1 tab daily MELOXICAM 04656055413 No Longer Active Esvin PAULA Active LISINOPRIL 20 MG TABS Take 1 tablet by mouth daily LISINOPRIL 63143149755 No Longer Active Esvin PAULA Active DICLOFENAC SODIUM 50 MG TBEC 1 tablet by mouth four times daily DICLOFENAC SODIUM 62698661762 No Longer Active Paula Cooney RN Active VERAMYST 27.5 MCG/SPRAY SUSP 2 spray each nare daily FLUTICASONE FUROATE 14239873707 No Longer Active Megan Vargas RN Active ENDOCET 10-325 MG TABS Take one (1) tablet by mouth three times a day OXYCODONE-ACETAMINOPHEN 74394440062 Active Wily Gonzalez DO Active ALPRAZOLAM 2 MG TABS Take one (1) tablet by mouth three times a day ALPRAZOLAM 06851987143 Active Wily Gonzalez DO Active NEXIUM 40 MG CPDR 1 cap by mouth daily ESOMEPRAZOLE MAGNESIUM 64750181594 No Longer Active Esvin PAULA Active ALPRAZOLAM 2 MG TABS 1 tablet by mouth three times daily as needed ALPRAZOLAM 72897148436 No Longer Active Esvin PAULA Active HYDROXYZINE HCL 25 MG TAB take 1 every 4-6 hours as needed 07/01 HYDROXYZINE HCL 60270952897 No Longer Active Esvin PAULA Active ENDOCET 10-325 MG TABS 1 by mouth twice a day OXYCODONE-ACETAMINOPHEN 19888613771 No Longer Active Esvin PAULA Active MS CONTIN 100 MG [id number] 1 by mouth twice a day MORPHINE SULFATE 75883599010 No Longer Active Esvin PAULA Active SUDAFED 30 MG TAB 1-2 every 4-6 hours as needed PSEUDOEPHEDRINE HCL 57271703087 Active Marylou Melissa RPT,RMA Active VERAMYST 27.5 MCG/SPRAY SUSP 2 spray each nare daily VERAMYST 27.5 MCG/SPRAY SUSP FLUTICASONE FUROATE Inactive DICLOFENAC SODIUM 50 MG TBEC 1 tablet by mouth four times daily DICLOFENAC SODIUM 50 MG TBEC 027543 DICLOFENAC SODIUM Inactive LISINOPRIL 20 MG TABS Take 1 tablet by mouth daily LISINOPRIL 20 MG TABS 194184 LISINOPRIL Inactive MOBIC 15 MG TABS 1 tab daily MOBIC 15 MG TABS 434671 MELOXICAM Inactive NEXIUM 40 MG CPDR 1 cap daily NEXIUM 40 MG CPDR 004946 ESOMEPRAZOLE MAGNESIUM Inactive CELEBREX 200 MG CAPS 1 tablet by mouth twice daily with meals CELEBREX 200 MG CAPS 793808 CELECOXIB Inactive FLEXERIL 10 MG TAB 1 [...] a day 05/05 AMOXICILLIN 500 MG CAPS 547491 AMOXICILLIN Inactive ZIAC 2.5-6.25 MG TAB 1 tablet every morning for high blood pressure ZIAC 2.5-6.25 MG TAB 984153 BISOPROLOL-HCTZ Inactive ZIAC 2.5-6.25 MG TAB 1 tablet daily for high blood pressure 10/27 ZIAC 2.5-6.25 MG TAB 619324 BISOPROLOL-HCTZ Inactive HYDROXYZINE HCL 25 MG TABS Take one (1) tablet by mouth twice a day HYDROXYZINE HCL 25 MG TABS 458803 HYDROXYZINE HCL Inactive ANUSOL-HC 25 MG SUPPOSITORY 1 rectally every 12 hours for irritation ANUSOL-HC 25 MG SUPPOSITORY 5136540 HYDROCORTISONE NAEL (RECTAL ) Inactive HYDROXYZINE HCL 25 MG TAB 1 two times a day as needed for anxiety HYDROXYZINE HCL 25 MG TAB 066547 HYDROXYZINE HCL Inactive FLOMAX 0.4 MG CAPS 1 capsule in the evening for night time urination. FLOMAX 0.4 MG CAPS 436385 TAMSULOSIN HCL Inactive CLEMASTINE FUMARATE 1.34 MG ORAL TABS 1 tab PO BID CLEMASTINE FUMARATE 1.34 MG ORAL TABS 548832 CLEMASTINE FUMARATE Inactive POLY-IRON 150 150 MG CAPS 1 tab po bid POLY-IRON 150 150 MG CAPS POLYSACCHARIDE IRON COMPLEX Inactive NYSTATIN 337941 UNIT/GM CREA apply to rash TID PRN NYSTATIN 844885 UNIT/GM CREA 768533 NYSTATIN Inactive [id number]-CCRQ 167-83-8 MG TABS 1 tab po daily [id number]-[id number]-ZOCF 167-83-8 MG TABS [id number]-OEDC Inactive MS CONTIN 100 MG TQ14Y-UDK 1 by mouth twice a day MS CONTIN 100 MG [id number] MORPHINE SULFATE Inactive ENDOCET 10-325 MG TABS 1 by mouth twice a day ENDOCET 10-325 MG TABS 5876493 OXYCODONE-ACETAMINOPHEN Inactive HYDROXYZINE HCL 25 MG TAB take 1 every 4-6 hours as needed 07/01 HYDROXYZINE HCL 25 MG TAB 709517 HYDROXYZINE HCL Inactive ALPRAZOLAM 2 MG TABS 1 tablet by mouth three times daily as needed ALPRAZOLAM 2 MG TABS 506337 ALPRAZOLAM Inactive NEXIUM 40 MG CPDR 1 cap by mouth daily NEXIUM 40 MG CPDR 001314 ESOMEPRAZOLE MAGNESIUM Inactive Advance Directives Directive Description [...] Measured Encounters Code Encounter Date Provider Facility CPT-15525 Level 3 Est. Patient 14:25:57 CDT Wily Gonzalez [facility] CPT-43046 Level 3 Est. Patient 09:51:37 SHOE STITCHER ODD Wily Gonzalez [facility] CPT-31415 Level 3 Est. Patient 11:07:48 CDT Wily Gonzalez [facility] CPT-04992 Level 3 Est. Patient 11:24:24 CDT Wily Gonzalez [facility] CPT-52013 Level 3 Est. Patient 15:19:54 SHOE STITCHER ODD Wily Gonzalez [facility] CPT-95841 Level 3 Est. Patient 10:04:45 CDT Wily Gonzalez [facility] CPT-64558 Level 3 Est. Patient 13:04:06 CDT Wily Gonzalez [facility] CPT-75868 Level 3 Est. Patient 12:23:04 CDT Wily Gonzalez [facility] CPT-97451 Level 3 Est. Patient 15:43:10 SHOE STITCHER ODD Wily Gonzalez [facility] CPT-30028 Level 3 Est. Patient 16:10:54 CDT Wily Gonzalez [facility] CPT-66996 Level 3 Est. Patient 19:50:51 CDT Wily Gonzalez [facility] CPT-77494 Level 3 Est. Patient 12:02:30 SHOE STITCHER ODD Wily Gonzalez [facility] CPT-01995 Level 3 Est. Patient 12:03:11 SHOE STITCHER ODD Wily Gonzalez [facility] CPT-26788 Level 3 Est. Patient 12:01:41 SHOE STITCHER ODD Wily Gonzalez [facility] CPT-91183 Level 3 Est. Patient 11:51:24 SHOE STITCHER ODD Wily Gonzalez [facility] CPT-60675 Level 3 Est. Patient 11:58:20 SHOE STITCHER ODD Wily Gonzalez [facility] CPT-32542 Level 3 Est. Patient 08:31:36 SHOE STITCHER ODD Wily Gonzalez [facility] CPT-05749 Level 3 Est. Patient 21:57:36 CDT Wily Gonzalez [facility] CPT-68506 Level 3 Est. Patient 10:49:58 CDT Esvin PAULA [facility] CPT-34398 Level 3 Est. Patient 11:22:52 CDT Esvin PAULA [facility] CPT-49300 Level 3 Est. Patient 13:49:41 CDT Esvin PAULA [facility] CPT-47643 Level 3 Est. Patient 11:54:53 CDT Esvin PAULA [facility] CPT-75357 Level 3 Est. Patient 09:07:11 CDT Esvin PAULA [facility] CPT-47070 Level 3 Est. Patient 13:52:47 CDT Esvin PAULA [facility] CPT-18516 Level 3 Est. Patient 11:26:46 CDT Esvin PAULA [facility] CPT-42623 Level 3 Est. Patient 10:25:00 SHOE STITCHER ODD Esvin PAULA [facility] CPT-04968 Level 3 Est. Patient 11:39:11 SHOE STITCHER ODD Esvin PAULA [facility] CPT-36443 Level 3 Est. Patient 13:24:24 SHOE STITCHER ODD Esvin Hudson [facility] CPT-83050 Level 3 Est. Patient 10:26:13 SHOE STITCHER ODD Esvin Hudson [facility] CPT-00180 Level 3 Est. Patient 10:21:21 CDT Esvin Hudson [facility] CPT-94590 Level 3 Est. Patient 10:26:30 CDT Esvin Hudson [facility] CPT-63103 Level 3 Est. Patient 09:16:37 CDT Esvin Hudson [facility]-09990 Level 3 Est. Patient 09:06:58 CDT Esvin Hudson [facility] CPT-83209 Level 3 Est. Patient 10:05:29 CDT Esvin Hudson [facility] CPT-54909 Level 3 Est. Patient 10:38:45 CDT Esvin Hudson [facility] CPT-23127 Level 3 Est. Patient 10:09:45 CDT Esvin Hudson [facility] CPT-83425 Level 3 Est. Patient 09:26:37 CDT Esvin Hudson [facility] CPT-62463 Level 3 Est. Patient 10:34:42 SHOE STITCHER ODD Esvin Hudson [facility] CPT-69199 Level 3 Est. Patient 10:45:47 SHOE STITCHER ODD Esvin Tristan [facility] CPT-55083 Level 3 Est. Patient 10:45:22 SHOE STITCHER ODD Esvin Tristan [facility]-74861 Level 3 Est. Patient 14:18:30 SHOE STITCHER ODD Esvin Tristan [facility] CPT-06560 Level 3 Est. Patient 13:53:29 SHOE STITCHER ODD Esvin PAULA [facility] CPT-89645 Level 3 Est. Patient 10:34:11 CDT Esvin Hudson [facility] Procedures Code Procedure Name Date Entry Date Standard Description CPT-51789 Smoking Cessation counseling 14:25:57 CDT CPT-32981 Bone Density - XRAY USE ONLY 11:29:32 CDT CPT-37680 LS spine AP and Lat - XRAY USE ONLY 10:07:43 SHOE STITCHER ODD 10/26 CPT-38042 Venipuncture Draw Fee 09:51:16 SHOE STITCHER ODD CPT-14670 Smoking Cessation counseling 09:39:47 SHOE STITCHER ODD CPT-G0438 Initial Annual Wellness Exam 09:37:28 SHOE STITCHER ODD CPT-51683 Venipuncture Draw Fee 09:26:55 CDT CPT-30905 Venipuncture Draw Fee 11:55:52 CDT CPT-18270 Spec Collection and Handling Fee 09:16:37 CDT CPT-46645 Venipuncture Draw Fee 09:16:37 CDT
--- OUTSIDE RECORDS SUMMARY | 2018-02-26 15:36 | XMS REPORT | Clinical Summary ---
Author Author Admin, E Organization [facility] Address Unknown Phone Unavailable Allergies, Adverse Reactions, [...] for up to 2 weeks TRIAMCINOLONE ACETONIDE [id number] Active Wily Gonzalez DO Active [id number] 167-83-8 MG TABS 1 tab po daily [id number] No Longer Active Wily Gonzalez DO Active NYSTATIN 447016 UNIT/GM CREA apply to rash TID PRN NYSTATIN 15526756317 No Longer Active Wily Gonzalez DO Active POLY-IRON 150 150 MG CAPS 1 tab po bid POLYSACCHARIDE IRON COMPLEX 28366060763 No Longer Active Wily Gonzalez DO Active FLONASE ALLERGY RELIEF 50 MCG/ACT NASAL SUSP 2 sprays each nostril every day FLUTICASONE PROPIONATE 68094262682 Active Jodi Shayy CORTEZ Active CLEMASTINE FUMARATE 1.34 MG ORAL TABS 1 tab PO BID CLEMASTINE FUMARATE 40899523724 No Longer Active Wily Gonzalez DO Active FLOMAX 0.4 MG CAPS 1 capsule in the evening for night time urination. TAMSULOSIN HCL 16696239829 No Longer Active Wily Gonzalez DO Active PROTONIX 40 MG TBEC 1 po daily PANTOPRAZOLE SODIUM 10011252874 Active Agnieszka Yeung Active HYDROXYZINE HCL 25 MG TAB 1 two times a day as needed for anxiety HYDROXYZINE HCL 72149528164 No Longer Active Wily Gonzalez DO Active ANUSOL-HC 25 MG SUPPOSITORY 1 rectally every 12 hours for irritation HYDROCORTISONE NAEL (RECTAL) 48088248279 No Longer Active Wily Gonzalez DO Active HYDROXYZINE HCL 25 MG TABS Take one (1) tablet by mouth twice a day HYDROXYZINE HCL 13875315198 No Longer Active Wily Gonzalez DO Active ZIAC 2.5-6.25 MG TAB 1 tablet daily for high blood pressure 10/27 BISOPROLOL-HCTZ 40079734125 No Longer Active Wily Gonzalez DO Active ZIAC 2.5-6.25 MG TAB 1 tablet every morning for high blood pressure BISOPROLOL-HCTZ 30844451509 No Longer Active Wily Gonzalez DO Active AMOXICILLIN 500 MG CAPS Take one (1) tablet by mouth three times a day 05/05 AMOXICILLIN 34979247965 No Longer Active Wily Gonzalez DO Active MORPHINE SULFATE ER 100 MG CR-TABS Take one (1) tablet by mouth twice a day MORPHINE SULFATE 83095641686 No Longer Active Wily Gonzalez DO Active MORPHINE SULFATE ER 100 MG [id number] 1 capsule twice daily for chronic pain MORPHINE SULFATE 16926361913 Active Agnieszka Yeung Active CIALIS 10 MG TABS 1 every 72 hours as needed TADALAFIL 77503021117 No Longer Active Esvin PAULA Active FLONASE 50 MCG/ACT SUSP 2 SPRAY EACH NARE DAILY FLUTICASONE PROPIONATE 64771160306 No Longer Active Esvin PAULA Active CYCLOBENZAPRINE HCL 10 MG TABS Take one (1) tablet by mouth three times a day CYCLOBENZAPRINE HCL 45638197620 Active Agnieszka Gamal Active OPANA ER (CRUSH RESISTANT) 40 MG [id number] Take one (1) tablet by mouth twice a day OXYMORPHONE HCL 36945748706 No Longer Active Esvin PAULA Active PROAIR HFA 108 (90 BASE) MCG/ACT AERS 2 puffs every four hours as needed ALBUTEROL SULFATE 45112412766 No Longer Active Esvin PAULA Active CLEARLAX POWD 17gm q day prn constipation POLYETHYLENE GLYCOL 3350 57040391918 Active Wily Gonzalez DO Active MORPHINE SULFATE ER 100 MG [id number] Take one (1) tablet by mouth twice a day MORPHINE SULFATE 70099505966 No Longer Active Esvin PAULA Active FLEXERIL 10 MG TAB 1 tablet by mouth 3 times daily as needed CYCLOBENZAPRINE HCL 84523758923 No Longer Active Esvin PAULA Active CELEBREX 200 MG CAPS 1 tablet by mouth twice daily with meals CELECOXIB 92597587854 No Longer Active Esvin PAULA Active NEXIUM 40 MG CPDR 1 cap daily ESOMEPRAZOLE MAGNESIUM 17958186713 No Longer Active Esvin PAULA Active MOBIC 15 MG TABS 1 tab daily MELOXICAM 89518829556 No Longer Active Esvin PAULA Active LISINOPRIL 20 MG TABS Take 1 tablet by mouth daily LISINOPRIL 47853307775 No Longer Active Esvin PAULA Active DICLOFENAC SODIUM 50 MG TBEC 1 tablet by mouth four times daily DICLOFENAC SODIUM 82709702421 No Longer Active Paula Cooney RN Active VERAMYST 27.5 MCG/SPRAY SUSP 2 spray each nare daily FLUTICASONE FUROATE 22215345658 No Longer Active Meganbarbra Vargas RN Active ENDOCET 10-325 MG TABS Take one (1) tablet by mouth three times a day OXYCODONE-ACETAMINOPHEN 87626730210 Active Agnieszka Yeung Active ALPRAZOLAM 2 MG TABS Take one (1) tablet by mouth three times a day ALPRAZOLAM 50436274474 Active Agnieszka Yeung Active NEXIUM 40 MG CPDR 1 cap by mouth daily ESOMEPRAZOLE MAGNESIUM 31979669131 No Longer Active Esvin PAULA Active ALPRAZOLAM 2 MG TABS 1 tablet by mouth three times daily as needed ALPRAZOLAM 10966466904 No Longer Active Esvin PAULA Active HYDROXYZINE HCL 25 MG TAB take 1 every 4-6 hours as needed 07/01 HYDROXYZINE HCL 63026713151 No Longer Active Esvin PAULA Active ENDOCET 10-325 MG TABS 1 by mouth twice a day OXYCODONE-ACETAMINOPHEN 10290412228 No Longer Active Esvin PAULA Active MS CONTIN 100 MG [id number] 1 by mouth twice a day MORPHINE SULFATE 76289944034 No Longer Active Esvin PAULA Active SUDAFED 30 MG TAB 1-2 every 4-6 hours as needed PSEUDOEPHEDRINE HCL 66229620533 Active Marylou Melissa RPT,RMA Active VERAMYST 27.5 MCG/SPRAY SUSP 2 spray each nare daily VERAMYST 27.5 MCG/SPRAY SUSP FLUTICASONE FUROATE Inactive DICLOFENAC SODIUM 50 MG TBEC 1 tablet by mouth four times daily DICLOFENAC SODIUM 50 MG TBEC 251368 DICLOFENAC SODIUM Inactive LISINOPRIL 20 MG TABS Take 1 tablet by mouth daily LISINOPRIL 20 MG TABS 927436 LISINOPRIL Inactive MOBIC 15 MG TABS 1 tab daily MOBIC 15 MG TABS 286715 MELOXICAM Inactive NEXIUM 40 MG CPDR 1 cap daily NEXIUM 40 MG CPDR 190870 ESOMEPRAZOLE MAGNESIUM Inactive CELEBREX 200 MG CAPS 1 tablet by mouth twice daily with meals CELEBREX 200 MG CAPS 368312 CELECOXIB Inactive FLEXERIL 10 MG TAB 1 [...] a day 05/05 AMOXICILLIN 500 MG CAPS 507012 AMOXICILLIN Inactive ZIAC 2.5-6.25 MG TAB 1 tablet every morning for high blood pressure ZIAC 2.5-6.25 MG TAB 207120 BISOPROLOL-HCTZ Inactive ZIAC 2.5-6.25 MG TAB 1 tablet daily for high blood pressure 10/27 ZIAC 2.5-6.25 MG TAB 739261 BISOPROLOL-HCTZ Inactive HYDROXYZINE HCL 25 MG TABS Take one (1) tablet by mouth twice a day HYDROXYZINE HCL 25 MG TABS 231833 HYDROXYZINE HCL Inactive ANUSOL-HC 25 MG SUPPOSITORY 1 rectally every 12 hours for irritation ANUSOL-HC 25 MG SUPPOSITORY 4369772 HYDROCORTISONE NAEL (RECTAL ) Inactive HYDROXYZINE HCL 25 MG TAB 1 two times a day as needed for anxiety HYDROXYZINE HCL 25 MG TAB 963549 HYDROXYZINE HCL Inactive FLOMAX 0.4 MG CAPS 1 capsule in the evening for night time urination. FLOMAX 0.4 MG CAPS 403420 TAMSULOSIN HCL Inactive CLEMASTINE FUMARATE 1.34 MG ORAL TABS 1 tab PO BID CLEMASTINE FUMARATE 1.34 MG ORAL TABS 134858 CLEMASTINE FUMARATE Inactive POLY-IRON 150 150 MG CAPS 1 tab po bid POLY-IRON 150 150 MG CAPS POLYSACCHARIDE IRON COMPLEX Inactive NYSTATIN 943256 UNIT/GM CREA apply to rash TID PRN NYSTATIN 616576 UNIT/GM CREA 328788 NYSTATIN Inactive [id number]-[id number]-TKCF 167-83-8 MG TABS 1 tab po daily [id number]-[id number]-VLOT 167-83-8 MG TABS RPLNIHW-ACSUGVPQD-RIFY Inactive MS CONTIN 100 MG XZ62H-DCG 1 by mouth twice a day MS CONTIN 100 MG SJ39O-LER MORPHINE SULFATE Inactive ENDOCET 10-325 MG TABS 1 by mouth twice a day ENDOCET 10-325 MG TABS 8548030 OXYCODONE-ACETAMINOPHEN Inactive HYDROXYZINE HCL 25 MG TAB take 1 every 4-6 hours as needed 07/01 HYDROXYZINE HCL 25 MG TAB 475516 HYDROXYZINE HCL Inactive ALPRAZOLAM 2 MG TABS 1 tablet by mouth three times daily as needed ALPRAZOLAM 2 MG TABS 944718 ALPRAZOLAM Inactive NEXIUM 40 MG CPDR 1 cap by mouth daily NEXIUM 40 MG CPDR 864025 ESOMEPRAZOLE MAGNESIUM Inactive Advance Directives Directive Description [...] ... - Chemistry sodium, serum 140 mmol/L 507-783 9015/03/25 carbon dioxide, venous blood 31.3 mmol/L 21.0-32.0 potassium, serum 4.0 mmol/L 3.5-5.2 chloride, serum 101 mmol/L 98-107 blood glucose 96 mg/dL 65-110 urea nitrogen, blood 7 mg/dL 7-18 creatinine, serum 0.94 mg/dL 0.55-1.30 alanine aminotransferase (SGPT), serum 23 U/L 12-78 aspartate aminotransferase (SGOT), serum 21 U/L 15-37 calcium, serum 8.9 mg/dL 8.5-10.1 bilirubin, serum, total 0.30 mg/dL 0.00-1.00 cholesterol, serum 169 mg/dL 952-559 4146/03/25 triglyceride, serum, fasting 143 mg/dL 30-200 HDL [...] 5.0-8.5 Encounters Code Encounter Date Provider Facility CPT-49172 Level 3 Est. Patient 11:07:48 CDT Wily Zhang [facility] CPT-10524 Level 3 Est. Patient 11:24:24 CDT Wily Zhang [facility] CPT-63186 Level 3 Est. Patient 15:19:54 PHILATELIC CONSULTANT Wily Gonzalez [facility] CPT-73512 Level 3 Est. Patient 10:04:45 CDT Wily Gonzalez DO [facility] CPT-28983 Level 3 Est. Patient 13:04:[address] [facility] CPT-24326 Level 3 Est. Patient 12:23:[address] [facility] CPT-66831 Level 3 Est. Patient 15:43:10 PHILATELIC CONSULTANT Wily Gonzalez [facility] CPT-72328 Level 3 Est. Patient 16:10:[address] [facility] CPT-28597 Level 3 Est. Patient 19:50:[address] [facility] CPT-37332 Level 3 Est. Patient 12:02:30 PHILATELIC CONSULTANT Wily Gonzalez DO [facility] CPT-71636 Level 3 Est. Patient 12:03:11 PHILATELIC CONSULTANT Wily Gonzalez [facility] CPT-54552 Level 3 Est. Patient 12:01:41 PHILATELIC CONSULTANT Wily Gonzalez [facility] CPT-57614 Level 3 Est. Patient 11:51:24 PHILATELIC CONSULTANT Wily Gonzalez [facility] CPT-78513 Level 3 Est. Patient 11:58:20 PHILATELIC CONSULTANT Wily Gonzalez DO [facility] CPT-69617 Level 3 Est. Patient 08:31:36 PHILATELIC CONSULTANT Wily Gonzalez [facility] CPT-39783 Level 3 Est. Patient 21:57:[address] [facility] CPT-41831 Level 3 Est. Patient 10:49:58 CDT Esvin Hudson [facility] CPT-72477 Level 3 Est. Patient 11:22:52 CDT Esvin PAULA [facility] CPT-50553 Level 3 Est. Patient 13:49:41 CDT Esvin PAULA [facility] CPT-51587 Level 3 Est. Patient 11:54:53 CDT Esvin PAULA [facility] CPT-47508 Level 3 Est. Patient 09:07:11 CDT Esvin PAULA [facility] CPT-91959 Level 3 Est. Patient 13:52:47 CDT Esvin PAULA [facility] CPT-77864 Level 3 Est. Patient 11:26:46 CDT Esvin PAULA [facility] CPT-39479 Level 3 Est. Patient 10:25:00 PHILATELIC CONSULTANT Esvin PAULA [facility] CPT-64342 Level 3 Est. Patient 11:39:11 PHILATELIC CONSULTANT Esvin PAULA [facility] CPT-80835 Level 3 Est. Patient 13:24:24 PHILATELIC CONSULTANT Esvin PAULA [facility] CPT-73519 Level 3 Est. Patient 10:26:13 PHILATELIC CONSULTANT Esvin PAULA [facility] CPT-09414 Level 3 Est. Patient 10:21:21 CDT Esvin PAULA [facility] CPT-28447 Level 3 Est. Patient 10:26:30 CDT Esvin PAULA [facility] CPT-00491 Level 3 Est. Patient 09:16:37 CDT Esvin Hudson [facility]-26685 Level 3 Est. Patient 09:06:58 CDT Esvni PAULA [facility] CPT-11213 Level 3 Est. Patient 10:05:29 CDT Esvin Hudson CHAI [facility] CPT-05232 Level 3 Est. Patient 10:38:45 CDT Esvin Tristan CHAI [facility] CPT-31596 Level 3 Est. Patient 10:09:45 CDT Esvin Tristan PA [facility] CPT-39945 Level 3 Est. Patient 09:26:37 CDT Esvin Tristan [facility] CPT-53150 Level 3 Est. Patient 10:34:42 PHILATELIC CONSULTANT Esvin Tristan [facility] CPT-78882 Level 3 Est. Patient 10:45:47 PHILATELIC CONSULTANT Esvin Tristan [facility] CPT-22720 Level 3 Est. Patient 10:45:22 PHILATELIC CONSULTANT Esvin Tristan [facility] CPT-57825 Level 3 Est. Patient 14:18:30 PHILATELIC CONSULTANT Esvin [place] [facility] CPT-38879 Level 3 Est. Patient 13:53:29 PHILATELIC CONSULTANT Esvin Tristan [facility] CPT-54234 Level 3 Est. Patient 10:34:11 CDT Esvin [place] [facility] Procedures Code Procedure Name Date Entry Date Standard Description CPT-05204 Venipuncture Draw Fee 09:26:55 CDT CPT-93312 Venipuncture Draw Fee 11:55:52 CDT CPT-57037 Spec Collection and Handling Fee 09:16:37 CDT CPT-29781 Venipuncture Draw Fee 09:16:37 CDT
--- OUTSIDE RECORDS SUMMARY | 2018-02-26 15:37 | XMS REPORT | Clinical Summary ---
Author Author Admin, E Organization [employer] Address Unknown Phone Unavailable Allergies, Adverse Reactions, Alerts Allergy Name Reaction Description Start Date Severity Status Provider NEURONTIN makes him paranoid Critical Active Wily Gonzalez DO LIDODERM preload Critical Active Paula Cooney RN BACTRIM preload Critical Active Paula Cooney RN Conditions or Problems Problem Name Problem Code Onset Date Status Entry Date Provider Comment Standard Description Annotate HYPERTENSION 401.9 Active Megan Vragas RN Unspecified essential hypertension BACK PAIN, LUMBAR [...] sprays each nostril every day FLUTICASONE PROPIONATE 92629446417 Active Wily Gonzalez DO Active CLEMASTINE FUMARATE 1.34 MG ORAL TABS 1 tab PO BID CLEMASTINE FUMARATE 03259137215 No Longer Active Wily Gonzalez DO Active FLOMAX 0.4 MG CAPS 1 capsule in the evening for night time urination. TAMSULOSIN HCL 60214243530 No Longer Active Wily Gonzalez DO Active PROTONIX 40 MG TBEC 1 po daily PANTOPRAZOLE SODIUM 95710040903 Active Wily Gonzalez DO Active HYDROXYZINE HCL 25 MG TAB 1 two times a day as needed for anxiety HYDROXYZINE HCL 23646277021 No Longer Active Wily Gonzalez DO Active ANUSOL-HC 25 MG SUPPOSITORY 1 rectally every 12 hours for irritation HYDROCORTISONE NAEL (RECTAL) 06588614821 No Longer Active Wily Gonzalez DO Active HYDROXYZINE HCL 25 MG TABS Take one (1) tablet by mouth twice a day HYDROXYZINE HCL 68569506181 No Longer Active Wily Gonzalez DO Active ZIAC 2.5-6.25 MG TAB 1 tablet daily for high blood pressure 10/27 BISOPROLOL-HCTZ 52969727583 No Longer Active Wily Gonzalez DO Active [id number] 167-83-8 MG TABS 1 tab po daily CALCIUM -MAGNESIUM-ZINC 44590348344 Active Wily Gonzalez DO Active NYSTATIN 087027 UNIT/GM CREA apply to rash TID PRN NYSTATIN 96932359364 Active Wily Gonzalez DO Active ZIAC 2.5-6.25 MG TAB 1 tablet every morning for high blood pressure BISOPROLOL-HCTZ 09169664021 No Longer Active Wily Gonzalez DO Active AMOXICILLIN 500 MG CAPS Take one (1) tablet by mouth three times a day 05/05 AMOXICILLIN 14933129281 No Longer Active Wily Gonzalez DO Active MORPHINE SULFATE ER 100 MG CR-TABS Take one (1) tablet by mouth twice a day MORPHINE SULFATE 35556070692 No Longer Active Wily Gonzalez DO Active MORPHINE SULFATE ER 100 MG [id number] 1 capsule twice daily for chronic pain MORPHINE SULFATE 36633020780 Active Marylou Melissa RPT,RMA Active CIALIS 10 MG TABS 1 every 72 hours as needed TADALAFIL 03047259165 No Longer Active Esvin PAULA Active FLONASE 50 MCG/ACT SUSP 2 SPRAY EACH NARE DAILY FLUTICASONE PROPIONATE 23259276918 No Longer Active Esvin PAULA Active CYCLOBENZAPRINE HCL 10 MG TABS Take one (1) tablet by mouth three times a day CYCLOBENZAPRINE HCL 18005434356 Active Wily Gonzalez DO Active OPANA ER (CRUSH RESISTANT) 40 MG [id number] Take one (1) tablet by mouth twice a day OXYMORPHONE HCL 34455266496 No Longer Active Esvin PAULA Active POLY-IRON 150 150 MG CAPS 1 tab po bid POLYSACCHARIDE IRON COMPLEX 68382256861 Active Wily Gonzalez DO Active PROAIR HFA 108 (90 BASE) MCG/ACT AERS 2 puffs every four hours as needed ALBUTEROL SULFATE 30283649902 No Longer Active Esvin PAULA Active CLEARLAX POWD 17gm q day prn constipation POLYETHYLENE GLYCOL 3350 28556452307 Active Kaylen Leigh MA Active MORPHINE SULFATE ER 100 MG [id number] Take one (1) tablet by mouth twice a day MORPHINE SULFATE 73371265126 No Longer Active Esvin PAULA Active FLEXERIL 10 MG TAB 1 tablet by mouth 3 times daily as needed CYCLOBENZAPRINE HCL 70288102130 No Longer Active Esvin PAULA Active CELEBREX 200 MG CAPS 1 tablet by mouth twice daily with meals CELECOXIB 89569521809 No Longer Active Esvin PUALA Active NEXIUM 40 MG CPDR 1 cap daily ESOMEPRAZOLE MAGNESIUM 19180186289 No Longer Active Esvin PAULA Active MOBIC 15 MG TABS 1 tab daily MELOXICAM 91174479854 No Longer Active Esvin PAULA Active LISINOPRIL 20 MG TABS Take 1 tablet by mouth daily LISINOPRIL 24318163585 No Longer Active Esvin PAULA Active DICLOFENAC SODIUM 50 MG TBEC 1 tablet by mouth four times daily DICLOFENAC SODIUM 75190483237 No Longer Active Paula Cooney RN Active VERAMYST 27.5 MCG/SPRAY SUSP 2 spray each nare daily FLUTICASONE FUROATE 92536672582 No Longer Active Megan Vargas RN Active ENDOCET 10-325 MG TABS Take one (1) tablet by mouth three times a day OXYCODONE-ACETAMINOPHEN 68264698392 Active Marylou Melissa RPT,RMA Active ALPRAZOLAM 2 MG TABS Take one (1) tablet by mouth three times a day ALPRAZOLAM 61277735824 Active Kaylen Leigh MA Active NEXIUM 40 MG CPDR 1 cap by mouth daily ESOMEPRAZOLE MAGNESIUM 11115955504 No Longer Active Esvin PAULA Active ALPRAZOLAM 2 MG TABS 1 tablet by mouth three times daily as needed ALPRAZOLAM 35287916494 No Longer Active Esvin PAULA Active HYDROXYZINE HCL 25 MG TAB take 1 every 4-6 hours as needed 07/01 HYDROXYZINE HCL 38068091285 No Longer Active Esvin PAULA Active ENDOCET 10-325 MG TABS 1 by mouth twice a day OXYCODONE-ACETAMINOPHEN 21431716347 No Longer Active Esvin PAULA Active MS CONTIN 100 MG [id number] 1 by mouth twice a day MORPHINE SULFATE 34087042839 No Longer Active Esvin PAULA Active SUDAFED 30 MG TAB 1-2 every 4-6 hours as needed PSEUDOEPHEDRINE HCL 76792472071 Active Marylou Melissa RPT,RMA Active VERAMYST 27.5 MCG/SPRAY SUSP 2 spray each nare daily VERAMYST 27.5 MCG/SPRAY SUSP FLUTICASONE FUROATE Inactive DICLOFENAC SODIUM 50 MG TBEC 1 tablet by mouth four times daily DICLOFENAC SODIUM 50 MG TBEC 894517 DICLOFENAC SODIUM Inactive LISINOPRIL 20 MG TABS Take 1 tablet by mouth daily LISINOPRIL 20 MG TABS 412427 LISINOPRIL Inactive MOBIC 15 MG TABS 1 tab daily MOBIC 15 MG TABS 630947 MELOXICAM Inactive NEXIUM 40 MG CPDR 1 cap daily NEXIUM 40 MG CPDR 920201 ESOMEPRAZOLE MAGNESIUM Inactive CELEBREX 200 MG CAPS 1 tablet by mouth twice daily with meals CELEBREX 200 MG CAPS 485647 CELECOXIB Inactive FLEXERIL 10 MG TAB 1 [...] a day 05/05 AMOXICILLIN 500 MG CAPS 043946 AMOXICILLIN Inactive ZIAC 2.5-6.25 MG TAB 1 tablet every morning for high blood pressure ZIAC 2.5-6.25 MG TAB 504468 BISOPROLOL-HCTZ Inactive ZIAC 2.5-6.25 MG TAB 1 tablet daily for high blood pressure 10/27 ZIAC 2.5-6.25 MG TAB 339460 BISOPROLOL-HCTZ Inactive HYDROXYZINE HCL 25 MG TABS Take one (1) tablet by mouth twice a day HYDROXYZINE HCL 25 MG TABS 330288 HYDROXYZINE HCL Inactive ANUSOL-HC 25 MG SUPPOSITORY 1 rectally every 12 hours for irritation ANUSOL-HC 25 MG SUPPOSITORY 8612912 HYDROCORTISONE NAEL (RECTAL ) Inactive HYDROXYZINE HCL 25 MG TAB 1 two times a day as needed for anxiety HYDROXYZINE HCL 25 MG TAB 951882 HYDROXYZINE HCL Inactive FLOMAX 0.4 MG CAPS 1 capsule in the evening for night time urination. FLOMAX 0.4 MG CAPS 617682 TAMSULOSIN HCL Inactive CLEMASTINE FUMARATE 1.34 MG ORAL TABS 1 tab PO BID CLEMASTINE FUMARATE 1.34 MG ORAL TABS 974368 CLEMASTINE FUMARATE Inactive MS CONTIN 100 MG [id number] 1 by mouth twice a day MS CONTIN 100 MG [id number] MORPHINE SULFATE Inactive ENDOCET 10-325 MG TABS 1 by mouth twice a day ENDOCET 10-325 MG TABS 2553251 OXYCODONE-ACETAMINOPHEN Inactive HYDROXYZINE HCL 25 MG TAB take 1 every 4-6 hours as needed 07/01 HYDROXYZINE HCL 25 MG TAB 517228 HYDROXYZINE HCL Inactive ALPRAZOLAM 2 MG TABS 1 tablet by mouth three times daily as needed ALPRAZOLAM 2 MG TABS 842486 ALPRAZOLAM Inactive NEXIUM 40 MG CPDR 1 cap by mouth daily NEXIUM 40 MG CPDR 690718 ESOMEPRAZOLE MAGNESIUM Inactive Advance Directives Directive Description [...] ... - Chemistry sodium, serum 140 mmol/L 549-339 6800/03/25 carbon dioxide, venous blood 31.3 mmol/L 21.0-32.0 potassium, serum 4.0 mmol/L 3.5-5.2 chloride, serum 101 mmol/L 98-107 blood glucose 96 mg/dL 65-110 urea nitrogen, blood 7 mg/dL 7-18 creatinine, serum 0.94 mg/dL 0.55-1.30 alanine aminotransferase (SGPT), serum 23 U/L 12-78 aspartate aminotransferase (SGOT), serum 21 U/L 15-37 calcium, serum 8.9 mg/dL 8.5-10.1 bilirubin, serum, total 0.30 mg/dL 0.00-1.00 cholesterol, serum 169 mg/dL 085-075 2811/03/25 triglyceride, serum, fasting 143 mg/dL 30-200 HDL [...] 5.0-8.5 Encounters Code Encounter Date Provider Facility [id number] Level 3 Est. Patient 11:24:24 CDT Wily Zhang [facility] CPT-57337 Level 3 Est. Patient 15:19:54 QUALITY AUDITOR Wily Zhang [facility] CPT-86100 Level 3 Est. Patient 10:04:45 CDT Wily Zhang [facility] CPT-55230 Level 3 Est. Patient 13:04:06 CDT Wily Zhang [facility] CPT-92351 Level 3 Est. Patient 12:23:04 CDT Wily Zhang [facility] CPT-30660 Level 3 Est. Patient 15:43:10 QUALITY AUDITOR Wily Gonzalez [facility] CPT-22141 Level 3 Est. Patient 16:10:54 CDT Wily Gonzalez [facility] CPT-55148 Level 3 Est. Patient 19:50:51 CDT Wily Gonzalez [facility] CPT-95093 Level 3 Est. Patient 12:02:30 QUALITY AUDITOR Wily Gonzalez [facility] CPT-26361 Level 3 Est. Patient 12:03:11 QUALITY AUDITOR Wily Gonzalez [facility] CPT-32920 Level 3 Est. Patient 12:01:41 QUALITY AUDITOR Wily Gonzalez [facility] CPT-92055 Level 3 Est. Patient 11:51:24 QUALITY AUDITOR Wily Gonzalez [facility] CPT-44218 Level 3 Est. Patient 11:58:20 QUALITY AUDITOR Wily Gonzalez [facility] CPT-75537 Level 3 Est. Patient 08:31:36 QUALITY AUDITOR Wily Gonzalez [facility] CPT-89411 Level 3 Est. Patient 21:57:36 CDT Wily Gonzalez [facility] CPT-13775 Level 3 Est. Patient 10:49:58 CDT Esvin PAULA [facility] CPT-10460 Level 3 Est. Patient 11:22:52 CDT Esvin Hudson [facility] CPT-48595 Level 3 Est. Patient 13:49:41 CDT Esvin PAULA [facility] CPT-13947 Level 3 Est. Patient 11:54:53 CDT Esvin PAULA [facility] CPT-23525 Level 3 Est. Patient 09:07:11 CDT Esvin Hudson [facility] CPT-04038 Level 3 Est. Patient 13:52:47 CDT Esvin PAULA [facility] CPT-76127 Level 3 Est. Patient 11:26:46 CDT Esvin Hudson [facility] CPT-95685 Level 3 Est. Patient 10:25:00 QUALITY AUDITOR Esvin PAULA [facility] CPT-51592 Level 3 Est. Patient 11:39:11 QUALITY AUDITOR Esvin Hudson [facility] CPT-56007 Level 3 Est. Patient 13:24:24 QUALITY AUDITOR Esvin PAULA [facility] CPT-81653 Level 3 Est. Patient 10:26:13 QUALITY AUDITOR Esvin Hudson [facility] CPT-43300 Level 3 Est. Patient 10:21:21 CDT Esvin Hudson [facility] CPT-04476 Level 3 Est. Patient 10:26:30 CDT Esvin Hudson [facility] CPT-23833 Level 3 Est. Patient 09:16:37 CDT Esvin Hudson [facility] CPT-56047 Level 3 Est. Patient 09:06:58 CDT Esvin Hudson [facility] CPT-95354 Level 3 Est. Patient 10:05:29 CDT Esvin Hudson [facility] CPT-80521 Level 3 Est. Patient 10:38:45 CDT Esvin Hudson [facility] CPT-26788 Level 3 Est. Patient 10:09:45 CDT Esvin Hudson [facility] CPT-21336 Level 3 Est. Patient 09:26:37 CDT Esvin Tristan [facility] CPT-54945 Level 3 Est. Patient 10:34:42 QUALITY AUDITOR Esvin Tristan [facility] CPT-11633 Level 3 Est. Patient 10:45:47 QUALITY AUDITOR Esvin Hudson [facility] CPT-30286 Level 3 Est. Patient 10:45:22 QUALITY AUDITOR Esvin Hudson [facility] CPT-67225 Level 3 Est. Patient 14:18:30 QUALITY AUDITOR Esvin [facility] CPT-01375 Level 3 Est. Patient 13:53:29 QUALITY AUDITOR Esvin Tristan [facility] CPT-61393 Level 3 Est. Patient 10:34:11 CDT Esvin [facility] Procedures Code Procedure Name Date Entry Date Standard Description CPT-74508 Venipuncture Draw Fee 09:26:55 CDT CPT-14768 Venipuncture Draw Fee 11:55:52 CDT CPT-81732 Spec Collection and Handling Fee 09:16:37 CDT CPT-62651 Venipuncture Draw Fee 09:16:37 CDT
--- OUTSIDE RECORDS SUMMARY | 2018-02-26 15:38 | XMS REPORT | Clinical Summary ---
Author Author Admin, E Organization [employer] Address Unknown Phone Unavailable Allergies, Adverse Reactions, [...] TABS 1 twice a day VARENICLINE TARTRATE 19833019275 Active Wily Gonzalez DO Active TRIAMCINOLONE ACETONIDE 0.1 % CREA Apply to affected area 3 times daily for up to 2 weeks TRIAMCINOLONE ACETONIDE 04427135955 Active Wily Gonzalez DO Active [id number] 167-83-8 MG TABS 1 tab po daily [id number] 61686896613 No Longer Active Wily Gonzalez DO Active NYSTATIN 641256 UNIT/GM CREA apply to rash TID PRN NYSTATIN 48822634988 No Longer Active Wily Gonzalez DO Active POLY-IRON 150 150 MG CAPS 1 tab po bid POLYSACCHARIDE IRON COMPLEX 34326960381 No Longer Active Wily Gonzalez DO Active FLONASE ALLERGY RELIEF 50 MCG/ACT NASAL SUSP 2 sprays each nostril every day FLUTICASONE PROPIONATE 05354687148 Active Jodi Lucas INSERTING MACHINE OPERATOR Active CLEMASTINE FUMARATE 1.34 MG ORAL TABS 1 tab PO BID CLEMASTINE FUMARATE 48133060491 No Longer Active Wily Gonzalez DO Active FLOMAX 0.4 MG CAPS 1 capsule in the evening for night time urination. TAMSULOSIN HCL 11441321393 No Longer Active Wily Gonzalez DO Active PROTONIX 40 MG TBEC 1 po daily PANTOPRAZOLE SODIUM 13812279000 Active Agnieszka Yeung Active HYDROXYZINE HCL 25 MG TAB 1 two times a day as needed for anxiety HYDROXYZINE HCL 21657687341 No Longer Active Wily Gonzalez DO Active ANUSOL-HC 25 MG SUPPOSITORY 1 rectally every 12 hours for irritation HYDROCORTISONE NAEL (RECTAL) 90352154289 No Longer Active Wily Gonzalez DO Active HYDROXYZINE HCL 25 MG TABS Take one (1) tablet by mouth twice a day HYDROXYZINE HCL 71121283871 No Longer Active Wily Gonzalez DO Active ZIAC 2.5-6.25 MG TAB 1 tablet daily for high blood pressure 10/27 BISOPROLOL-HCTZ 39755245800 No Longer Active Wily Gonzalez DO Active ZIAC 2.5-6.25 MG TAB 1 tablet every morning for high blood pressure BISOPROLOL-HCTZ 71191605601 No Longer Active Wily Gonzalez DO Active AMOXICILLIN 500 MG CAPS Take one (1) tablet by mouth three times a day 05/05 AMOXICILLIN 94098486039 No Longer Active Wily Gonzalez DO Active MORPHINE SULFATE ER 100 MG CR-TABS Take one (1) tablet by mouth twice a day MORPHINE SULFATE 32169380459 No Longer Active Wily Gonzalez DO Active MORPHINE SULFATE ER 100 MG [id number] 1 capsule twice daily for chronic pain MORPHINE SULFATE 36430648393 Active Wily Gonzalez DO Active CIALIS 10 MG TABS 1 every 72 hours as needed TADALAFIL 78052920658 No Longer Active Esvin PAULA Active FLONASE 50 MCG/ACT SUSP 2 SPRAY EACH NARE DAILY FLUTICASONE PROPIONATE 25122535808 No Longer Active Esvin PAULA Active CYCLOBENZAPRINE HCL 10 MG TABS Take one (1) tablet by mouth three times a day CYCLOBENZAPRINE HCL 35504594362 Active Agnieszka Yeung Active OPANA ER (CRUSH RESISTANT) 40 MG [id number] Take one (1) tablet by mouth twice a day OXYMORPHONE HCL 38822795185 No Longer Active Esvin PAULA Active PROAIR HFA 108 (90 BASE) MCG/ACT AERS 2 puffs every four hours as needed ALBUTEROL SULFATE 12765407984 No Longer Active Esvin PAULA Active CLEARLAX POWD 17gm q day prn constipation POLYETHYLENE GLYCOL 3350 99044494683 Active Wily Gonzalez DO Active MORPHINE SULFATE ER 100 MG [id number] Take one (1) tablet by mouth twice a day MORPHINE SULFATE 58406766085 No Longer Active Esvin PAULA Active FLEXERIL 10 MG TAB 1 tablet by mouth 3 times daily as needed CYCLOBENZAPRINE HCL 41076753748 No Longer Active Esvin PAULA Active CELEBREX 200 MG CAPS 1 tablet by mouth twice daily with meals CELECOXIB 67271784607 No Longer Active Esvin PAULA Active NEXIUM 40 MG CPDR 1 cap daily ESOMEPRAZOLE MAGNESIUM 65462932111 No Longer Active Esvin PAULA Active MOBIC 15 MG TABS 1 tab daily MELOXICAM 09268229470 No Longer Active Esvin PAULA Active LISINOPRIL 20 MG TABS Take 1 tablet by mouth daily LISINOPRIL 01213251723 No Longer Active Esvin PAULA Active DICLOFENAC SODIUM 50 MG TBEC 1 tablet by mouth four times daily DICLOFENAC SODIUM 20827303334 No Longer Active Paula Cooney RN Active VERAMYST 27.5 MCG/SPRAY SUSP 2 spray each nare daily FLUTICASONE FUROATE 36501632497 No Longer Active Meganbarbra Vargas RN Active ENDOCET 10-325 MG TABS Take one (1) tablet by mouth three times a day OXYCODONE-ACETAMINOPHEN 91386210780 Active Wily Gonzalez DO Active ALPRAZOLAM 2 MG TABS Take one (1) tablet by mouth three times a day ALPRAZOLAM 45708081697 Active Wily Gonzalez DO Active NEXIUM 40 MG CPDR 1 cap by mouth daily ESOMEPRAZOLE MAGNESIUM 30711862686 No Longer Active Esvin PAULA Active ALPRAZOLAM 2 MG TABS 1 tablet by mouth three times daily as needed ALPRAZOLAM 93026157499 No Longer Active Esvin PAULA Active HYDROXYZINE HCL 25 MG TAB take 1 every 4-6 hours as needed 07/01 HYDROXYZINE HCL 22236731696 No Longer Active Esvin PAULA Active ENDOCET 10-325 MG TABS 1 by mouth twice a day OXYCODONE-ACETAMINOPHEN 52025919379 No Longer Active Esvin PAULA Active MS CONTIN 100 MG [id number]-EYR 1 by mouth twice a day MORPHINE SULFATE 14333658094 No Longer Active Esvin PAULA Active SUDAFED 30 MG TAB 1-2 every 4-6 hours as needed PSEUDOEPHEDRINE HCL 11994693887 Active Marylou Melissa RPT,RMA Active VERAMYST 27.5 MCG/SPRAY SUSP 2 spray each nare daily VERAMYST 27.5 MCG/SPRAY SUSP FLUTICASONE FUROATE Inactive DICLOFENAC SODIUM 50 MG TBEC 1 tablet by mouth four times daily DICLOFENAC SODIUM 50 MG TBEC 352495 DICLOFENAC SODIUM Inactive LISINOPRIL 20 MG TABS Take 1 tablet by mouth daily LISINOPRIL 20 MG TABS 286218 LISINOPRIL Inactive MOBIC 15 MG TABS 1 tab daily MOBIC 15 MG TABS 298910 MELOXICAM Inactive NEXIUM 40 MG CPDR 1 cap daily NEXIUM 40 MG CPDR 005561 ESOMEPRAZOLE MAGNESIUM Inactive CELEBREX 200 MG CAPS 1 tablet by mouth twice daily with meals CELEBREX 200 MG CAPS 933397 CELECOXIB Inactive FLEXERIL 10 MG TAB 1 [...] a day 05/05 AMOXICILLIN 500 MG CAPS 561235 AMOXICILLIN Inactive ZIAC 2.5-6.25 MG TAB 1 tablet every morning for high blood pressure ZIAC 2.5-6.25 MG TAB 289262 BISOPROLOL-HCTZ Inactive ZIAC 2.5-6.25 MG TAB 1 tablet daily for high blood pressure 10/27 ZIAC 2.5-6.25 MG TAB 046403 BISOPROLOL-HCTZ Inactive HYDROXYZINE HCL 25 MG TABS Take one (1) tablet by mouth twice a day HYDROXYZINE HCL 25 MG TABS 041232 HYDROXYZINE HCL Inactive ANUSOL-HC 25 MG SUPPOSITORY 1 rectally every 12 hours for irritation ANUSOL-HC 25 MG SUPPOSITORY 8893058 HYDROCORTISONE NAEL (RECTAL ) Inactive HYDROXYZINE HCL 25 MG TAB 1 two times a day as needed for anxiety HYDROXYZINE HCL 25 MG TAB 990293 HYDROXYZINE HCL Inactive FLOMAX 0.4 MG CAPS 1 capsule in the evening for night time urination. FLOMAX 0.4 MG CAPS 277702 TAMSULOSIN HCL Inactive CLEMASTINE FUMARATE 1.34 MG ORAL TABS 1 tab PO BID CLEMASTINE FUMARATE 1.34 MG ORAL TABS 042831 CLEMASTINE FUMARATE Inactive POLY-IRON 150 150 MG CAPS 1 tab po bid POLY-IRON 150 150 MG CAPS POLYSACCHARIDE IRON COMPLEX Inactive NYSTATIN 608069 UNIT/GM CREA apply to rash TID PRN NYSTATIN 429674 UNIT/GM CREA 907877 NYSTATIN Inactive [id number] 167-83-8 MG TABS 1 tab po daily EHLOLKG-QPAXLHXPG-HUCQ 167-83-8 MG TABS [id number] Inactive MS CONTIN 100 MG [id number] 1 by mouth twice a day MS CONTIN 100 MG [id number] MORPHINE SULFATE Inactive ENDOCET 10-325 MG TABS 1 by mouth twice a day ENDOCET 10-325 MG TABS 4537213 OXYCODONE-ACETAMINOPHEN Inactive HYDROXYZINE HCL 25 MG TAB take 1 every 4-6 hours as needed 07/01 HYDROXYZINE HCL 25 MG TAB 350292 HYDROXYZINE HCL Inactive ALPRAZOLAM 2 MG TABS 1 tablet by mouth three times daily as needed ALPRAZOLAM 2 MG TABS 890902 ALPRAZOLAM Inactive NEXIUM 40 MG CPDR 1 cap by mouth daily NEXIUM 40 MG CPDR 227110 ESOMEPRAZOLE MAGNESIUM Inactive Advance Directives Directive Description [...] ... - Chemistry sodium, serum 140 mmol/L 039-579 0686/03/25 carbon dioxide, venous blood 31.3 mmol/L 21.0-32.0 potassium, serum 4.0 mmol/L 3.5-5.2 chloride, serum 101 mmol/L 98-107 blood glucose 96 mg/dL 65-110 urea nitrogen, blood 7 mg/dL 7-18 creatinine, serum 0.94 mg/dL 0.55-1.30 alanine aminotransferase (SGPT), serum 23 U/L 12-78 aspartate aminotransferase (SGOT), serum 21 U/L 15-37 calcium, serum 8.9 mg/dL 8.5-10.1 bilirubin, serum, total 0.30 mg/dL 0.00-1.00 cholesterol, serum 169 mg/dL 997-894 9996/03/25 triglyceride, serum, fasting 143 mg/dL 30-200 HDL [...] 5.0-8.5 Encounters Code Encounter Date Provider Facility CPT-15764 Level 3 Est. Patient 09:51:37 HEAT TREATING OPERATOR Wily Gonzalez [facility] CPT-22837 Level 3 Est. Patient 11:07:48 CDT Wily Gonzalez [facility] CPT-23495 Level 3 Est. Patient 11:24:24 CDT Wily Zhang [facility] CPT-44081 Level 3 Est. Patient 15:19:54 HEAT TREATING OPERATOR Wily Gonzalez [facility] CPT-50359 Level 3 Est. Patient 10:04:45 CDT Wily Gonzalez [facility] CPT-74430 Level 3 Est. Patient 13:04:06 CDT Wily Gonzalez [facility] CPT-15189 Level 3 Est. Patient 12:23:04 CDT Wily Gonzalez [facility] CPT-57793 Level 3 Est. Patient 15:43:10 HEAT TREATING OPERATOR Wily Gonzalez [facility] CPT-00618 Level 3 Est. Patient 16:10:54 CDT Wily Gonzalez [facility] CPT-96030 Level 3 Est. Patient 19:50:51 CDT Wily Zhang [facility] CPT-35027 Level 3 Est. Patient 12:02:30 HEAT TREATING OPERATOR Wily Gonzalez [facility] CPT-35508 Level 3 Est. Patient 12:03:11 HEAT TREATING OPERATOR Wily Gonzalez [facility] CPT-77963 Level 3 Est. Patient 12:01:41 HEAT TREATING OPERATOR Wily Gonzalez [facility] CPT-43495 Level 3 Est. Patient 11:51:24 HEAT TREATING OPERATOR Wily Gonzalez [facility] CPT-54483 Level 3 Est. Patient 11:58:20 HEAT TREATING OPERATOR Wily Gonzalez [facility] CPT-59581 Level 3 Est. Patient 08:31:36 HEAT TREATING OPERATOR Wily Gonzalez [facility] CPT-00564 Level 3 Est. Patient 21:57:36 CDT Wily Gonzalez [facility] CPT-34186 Level 3 Est. Patient 10:49:58 CDT Esvin PAULA [facility] CPT-06151 Level 3 Est. Patient 11:22:52 CDT Esvin PAULA [facility] CPT-33304 Level 3 Est. Patient 13:49:41 CDT Esvin PAULA [facility] CPT-98426 Level 3 Est. Patient 11:54:53 CDT Esvin PAULA [facility] CPT-20000 Level 3 Est. Patient 09:07:11 CDT Esvin PAULA [facility] CPT-80565 Level 3 Est. Patient 13:52:47 CDT Esvin PAULA [facility] CPT-19814 Level 3 Est. Patient 11:26:46 CDT Esvin PAULA [facility] CPT-49087 Level 3 Est. Patient 10:25:00 HEAT TREATING OPERATOR Esvin PAULA [facility] CPT-14892 Level 3 Est. Patient 11:39:11 HEAT TREATING OPERATOR Esvin PAULA [facility] CPT-55261 Level 3 Est. Patient 13:24:24 HEAT TREATING OPERATOR Esvin Tristan PA [facility] CPT-60314 Level 3 Est. Patient 10:26:13 HEAT TREATING OPERATOR Esvin Randolph PA [facility] CPT-60980 Level 3 Est. Patient 10:21:21 CDT Esvin Tristan PA [facility] CPT-95694 Level 3 Est. Patient 10:26:30 CDT Esvin Hudson CHAI [facility] CPT-10720 Level 3 Est. Patient 09:16:37 CDT Esvin Randolph PA [facility]-44221 Level 3 Est. Patient 09:06:58 CDT Esvin Randolph PA [facility] CPT-91247 Level 3 Est. Patient 10:05:29 CDT Esvin Randolph PA [facility] CPT-38372 Level 3 Est. Patient 10:38:45 CDT Esvin Randolph PA [facility] CPT-09452 Level 3 Est. Patient 10:09:45 CDT Esvin Tristan PA [facility] CPT-93231 Level 3 Est. Patient 09:26:37 CDT Esvin Randolph PA [facility] CPT-31394 Level 3 Est. Patient 10:34:42 HEAT TREATING OPERATOR Esvin Tristan CHAI [facility] CPT-82713 Level 3 Est. Patient 10:45:47 HEAT TREATING OPERATOR Esvin Tristan PA [facility] CPT-62560 Level 3 Est. Patient 10:45:22 HEAT TREATING OPERATOR Esvin Tristan PA [facility]-36514 Level 3 Est. Patient 14:18:30 HEAT TREATING OPERATOR Esvin PAULA [facility] CPT-86835 Level 3 Est. Patient 13:53:29 HEAT TREATING OPERATOR Esvin PAULA [facility] CPT-07405 Level 3 Est. Patient 10:34:11 CDT Esvin Hudson [facility] Procedures Code Procedure Name Date Entry Date Standard Description CPT-62509 LS spine AP and Lat - XRAY USE ONLY 10:07:43 HEAT TREATING OPERATOR 10/26 CPT-46331 Venipuncture Draw Fee 09:51:16 HEAT TREATING OPERATOR CPT-40894 Smoking Cessation counseling 09:39:47 HEAT TREATING OPERATOR CPT-G0438 Initial Annual Wellness Exam 09:37:28 HEAT TREATING OPERATOR CPT-53786 Venipuncture Draw Fee 09:26:55 CDT CPT-20124 Venipuncture Draw Fee 11:55:52 CDT CPT-79408 Spec Collection and Handling Fee 09:16:37 CDT CPT-26813 Venipuncture Draw Fee 09:16:37 CDT
--- OUTSIDE RECORDS SUMMARY | 2018-02-26 15:39 | XMS REPORT | Clinical Summary ---
Author Author Admin, E Organization [employer] Address Unknown Phone Unavailable Allergies, Adverse Reactions, [...] sprays each nostril every day FLUTICASONE PROPIONATE [id number] Active Wily Gonzalez DO Active CLEMASTINE FUMARATE 1.34 MG ORAL TABS 1 tab PO BID CLEMASTINE FUMARATE 04866344300 No Longer Active Wily Gonzalez DO Active FLOMAX 0.4 MG CAPS 1 capsule in the evening for night time urination. TAMSULOSIN HCL [id number] No Longer Active Wily Gonzalez DO Active PROTONIX 40 MG TBEC 1 po daily PANTOPRAZOLE SODIUM 49244744153 Active Wily Gonzalez DO Active HYDROXYZINE HCL 25 MG TAB 1 two times a day as needed for anxiety HYDROXYZINE HCL 94666444922 No Longer Active Wily Gonzalez DO Active ANUSOL-HC 25 MG SUPPOSITORY 1 rectally every 12 hours for irritation HYDROCORTISONE NAEL (RECTAL) 48945504875 No Longer Active Wily Gonzalez DO Active HYDROXYZINE HCL 25 MG TABS Take one (1) tablet by mouth twice a day HYDROXYZINE HCL 95949782094 No Longer Active Wily Gonzalez DO Active ZIAC 2.5-6.25 MG TAB 1 tablet daily for high blood pressure 10/27 BISOPROLOL-HCTZ 36559926095 No Longer Active Wily Gonzalez DO Active [id number] 167-83-8 MG TABS 1 tab po daily CALCIUM -MAGNESIUM-ZINC 11302987447 Active Wily Gonzalez DO Active NYSTATIN 250648 UNIT/GM CREA apply to rash TID PRN NYSTATIN 27203756523 Active Wily Gonzalez DO Active ZIAC 2.5-6.25 MG TAB 1 tablet every morning for high blood pressure BISOPROLOL-HCTZ 90866589420 No Longer Active Wily Gonzalez DO Active AMOXICILLIN 500 MG CAPS Take one (1) tablet by mouth three times a day 05/05 AMOXICILLIN 74474541765 No Longer Active Wily Gonzalez DO Active MORPHINE SULFATE ER 100 MG CR-TABS Take one (1) tablet by mouth twice a day MORPHINE SULFATE 27419256134 No Longer Active Wily Gonzalez DO Active MORPHINE SULFATE ER 100 MG [id number] 1 capsule twice daily for chronic pain MORPHINE SULFATE 67246055630 Active Wily Gonzalez DO Active CIALIS 10 MG TABS 1 every 72 hours as needed TADALAFIL 23383337856 No Longer Active Esvin PAULA Active FLONASE 50 MCG/ACT SUSP 2 SPRAY EACH NARE DAILY FLUTICASONE PROPIONATE 54154170091 No Longer Active Esvin PAULA Active CYCLOBENZAPRINE HCL 10 MG TABS Take one (1) tablet by mouth three times a day CYCLOBENZAPRINE HCL 24942115985 Active Wily Gonzalez DO Active OPANA ER (CRUSH RESISTANT) 40 MG [id number] Take one (1) tablet by mouth twice a day OXYMORPHONE HCL 29833252189 No Longer Active Esvin PAULA Active POLY-IRON 150 150 MG CAPS 1 tab po bid POLYSACCHARIDE IRON COMPLEX 39634003586 Active Wily Gonzalez DO Active PROAIR HFA 108 (90 BASE) MCG/ACT AERS 2 puffs every four hours as needed ALBUTEROL SULFATE 96832492484 No Longer Active Esvin PAULA Active CLEARLAX POWD 17gm q day prn constipation POLYETHYLENE GLYCOL 3350 64280613860 Active Kaylen Leigh MA Active MORPHINE SULFATE ER 100 MG [id number] Take one (1) tablet by mouth twice a day MORPHINE SULFATE 78468213598 No Longer Active Esvin PAULA Active FLEXERIL 10 MG TAB 1 tablet by mouth 3 times daily as needed CYCLOBENZAPRINE HCL 19644373020 No Longer Active Esvin PAULA Active CELEBREX 200 MG CAPS 1 tablet by mouth twice daily with meals CELECOXIB 11508516329 No Longer Active Esvin PAULA Active NEXIUM 40 MG CPDR 1 cap daily ESOMEPRAZOLE MAGNESIUM 40955507579 No Longer Active Esvin PAULA Active MOBIC 15 MG TABS 1 tab daily MELOXICAM 20367638047 No Longer Active Esvin PAULA Active LISINOPRIL 20 MG TABS Take 1 tablet by mouth daily LISINOPRIL 30832780269 No Longer Active Esvin PAULA Active DICLOFENAC SODIUM 50 MG TBEC 1 tablet by mouth four times daily DICLOFENAC SODIUM 28350264346 No Longer Active Paula Cooney RN Active VERAMYST 27.5 MCG/SPRAY SUSP 2 spray each nare daily FLUTICASONE FUROATE 42946795745 No Longer Active Megan Vargas RN Active ENDOCET 10-325 MG TABS Take one (1) tablet by mouth three times a day OXYCODONE-ACETAMINOPHEN 63745740480 Active Wily Gonzalez DO Active ALPRAZOLAM 2 MG TABS Take one (1) tablet by mouth three times a day ALPRAZOLAM 66534041079 Active Marylou Melissa RPT,RMA Active NEXIUM 40 MG CPDR 1 cap by mouth daily ESOMEPRAZOLE MAGNESIUM 54047888212 No Longer Active Esvin PAULA Active ALPRAZOLAM 2 MG TABS 1 tablet by mouth three times daily as needed ALPRAZOLAM 29061971508 No Longer Active Esvin PAULA Active HYDROXYZINE HCL 25 MG TAB take 1 every 4-6 hours as needed 07/01 HYDROXYZINE HCL 96057552553 No Longer Active Esvin PAULA Active ENDOCET 10-325 MG TABS 1 by mouth twice a day OXYCODONE-ACETAMINOPHEN 11750003897 No Longer Active Esvin PAULA Active MS CONTIN 100 MG [id number] 1 by mouth twice a day MORPHINE SULFATE 48860831718 No Longer Active Esvin PAULA Active SUDAFED 30 MG TAB 1-2 every 4-6 hours as needed PSEUDOEPHEDRINE HCL 51851557957 Active Marylou Melissa RPT,RMA Active VERAMYST 27.5 MCG/SPRAY SUSP 2 spray each nare daily VERAMYST 27.5 MCG/SPRAY SUSP FLUTICASONE FUROATE Inactive DICLOFENAC SODIUM 50 MG TBEC 1 tablet by mouth four times daily DICLOFENAC SODIUM 50 MG TBEC 189653 DICLOFENAC SODIUM Inactive LISINOPRIL 20 MG TABS Take 1 tablet by mouth daily LISINOPRIL 20 MG TABS 146031 LISINOPRIL Inactive MOBIC 15 MG TABS 1 tab daily MOBIC 15 MG TABS 818663 MELOXICAM Inactive NEXIUM 40 MG CPDR 1 cap daily NEXIUM 40 MG CPDR 282869 ESOMEPRAZOLE MAGNESIUM Inactive CELEBREX 200 MG CAPS 1 tablet by mouth twice daily with meals CELEBREX 200 MG CAPS 314725 CELECOXIB Inactive FLEXERIL 10 MG TAB 1 [...] a day 05/05 AMOXICILLIN 500 MG CAPS 354562 AMOXICILLIN Inactive ZIAC 2.5-6.25 MG TAB 1 tablet every morning for high blood pressure ZIAC 2.5-6.25 MG TAB 469135 BISOPROLOL-HCTZ Inactive ZIAC 2.5-6.25 MG TAB 1 tablet daily for high blood pressure 10/27 ZIAC 2.5-6.25 MG TAB 724248 BISOPROLOL-HCTZ Inactive HYDROXYZINE HCL 25 MG TABS Take one (1) tablet by mouth twice a day HYDROXYZINE HCL 25 MG TABS 832617 HYDROXYZINE HCL Inactive ANUSOL-HC 25 MG SUPPOSITORY 1 rectally every 12 hours for irritation ANUSOL-HC 25 MG SUPPOSITORY 5982167 HYDROCORTISONE NAEL (RECTAL ) Inactive HYDROXYZINE HCL 25 MG TAB 1 two times a day as needed for anxiety HYDROXYZINE HCL 25 MG TAB 781527 HYDROXYZINE HCL Inactive FLOMAX 0.4 MG CAPS 1 capsule in the evening for night time urination. FLOMAX 0.4 MG CAPS 723148 TAMSULOSIN HCL Inactive CLEMASTINE FUMARATE 1.34 MG ORAL TABS 1 tab PO BID CLEMASTINE FUMARATE 1.34 MG ORAL TABS 738222 CLEMASTINE FUMARATE Inactive MS CONTIN 100 MG [id number] 1 by mouth twice a day MS CONTIN 100 MG [id number] MORPHINE SULFATE Inactive ENDOCET 10-325 MG TABS 1 by mouth twice a day ENDOCET 10-325 MG TABS 0019888 OXYCODONE-ACETAMINOPHEN Inactive HYDROXYZINE HCL 25 MG TAB take 1 every 4-6 hours as needed 07/01 HYDROXYZINE HCL 25 MG TAB 430667 HYDROXYZINE HCL Inactive ALPRAZOLAM 2 MG TABS 1 tablet by mouth three times daily as needed ALPRAZOLAM 2 MG TABS 002016 ALPRAZOLAM Inactive NEXIUM 40 MG CPDR 1 cap by mouth daily NEXIUM 40 MG CPDR 548891 ESOMEPRAZOLE MAGNESIUM Inactive Advance Directives Directive Description [...] ... - Chemistry sodium, serum 138 mmol/L 476-489 7597/04/13 potassium, serum 4.9 mmol/L 3.5-5.2 chloride, serum [...] ... - Chemistry sodium, serum 140 mmol/L 828-422 2100/03/25 carbon dioxide, venous blood 31.3 mmol/L 21.0-32.0 potassium, serum 4.0 mmol/L 3.5-5.2 chloride, serum 101 mmol/L 98-107 blood glucose 96 mg/dL 65-110 urea nitrogen, blood 7 mg/dL 7-18 creatinine, serum 0.94 mg/dL 0.55-1.30 alanine aminotransferase (SGPT), serum 23 U/L 12-78 aspartate aminotransferase (SGOT), serum 21 U/L 15-37 calcium, serum 8.9 mg/dL 8.5-10.1 bilirubin, serum, total 0.30 mg/dL 0.00-1.00 cholesterol, serum 169 mg/dL 297-122 4368/03/25 triglyceride, serum, fasting 143 mg/dL 30-200 HDL [...] 5.0-8.5 Encounters Code Encounter Date Provider Facility CPT-36385 Level 3 Est. Patient 11:24:24 CDT Wily W Carlos [facility] CPT-32838 Level 3 Est. Patient 15:19:54 FURNITURE DIPPER Wily Gonzalez [facility] CPT-33270 Level 3 Est. Patient 10:04:45 CDT Wily Gonzalez DO [facility] CPT-28253 Level 3 Est. Patient 13:04:06 CDT Wily Gonzalez [facility] CPT-89107 Level 3 Est. Patient 12:23:04 CDT Wily Gonzalez [facility] CPT-86662 Level 3 Est. Patient 15:43:10 FURNITURE DIPPER Wily Gonzalez [facility] CPT-84940 Level 3 Est. Patient 16:10:54 CDT Wily Gonzalez [facility] CPT-03948 Level 3 Est. Patient 19:50:51 CDT Wily Gonzalez [facility] CPT-92748 Level 3 Est. Patient 12:02:30 FURNITURE DIPPER Wily Gonzalez [facility] CPT-27810 Level 3 Est. Patient 12:03:11 FURNITURE DIPPER Wily Gonzalez [facility] CPT-30382 Level 3 Est. Patient 12:01:41 FURNITURE DIPPER Wily Gonzalez [facility] CPT-28929 Level 3 Est. Patient 11:51:24 FURNITURE DIPPER Wily Gonzalez [facility] CPT-35878 Level 3 Est. Patient 11:58:20 FURNITURE DIPPER Wily Gonzalez [facility] CPT-97463 Level 3 Est. Patient 08:31:36 FURNITURE DIPPER Wily Gonzalez [facility] CPT-55560 Level 3 Est. Patient 21:57:36 CDT Wily Gonzalez [facility] CPT-62979 Level 3 Est. Patient 10:49:58 CDT Esvin Hudson [facility] CPT-16317 Level 3 Est. Patient 11:22:52 CDT Esvin Hudson [facility] CPT-35808 Level 3 Est. Patient 13:49:41 CDT Esvin Hudson [facility] CPT-91490 Level 3 Est. Patient 11:54:53 CDT Esvin Hudson [facility] CPT-66517 Level 3 Est. Patient 09:07:11 CDT Esvin Hudson [facility] CPT-38392 Level 3 Est. Patient 13:52:47 CDT Esvin PAULA [facility] CPT-40707 Level 3 Est. Patient 11:26:46 CDT Esvin Hudson [facility] CPT-36622 Level 3 Est. Patient 10:25:00 FURNITURE DIPPER Esvin Hudson [facility] CPT-64625 Level 3 Est. Patient 11:39:11 FURNITURE DIPPER Esvin Hudson [facility] CPT-46158 Level 3 Est. Patient 13:24:24 FURNITURE DIPPER Esvin PAULA [facility] CPT-36908 Level 3 Est. Patient 10:26:13 FURNITURE DIPPER Esvin PAULA [facility] CPT-83183 Level 3 Est. Patient 10:21:21 CDT Esvin Hudson [facility] CPT-39365 Level 3 Est. Patient 10:26:30 CDT Esvin PAULA [facility] CPT-57860 Level 3 Est. Patient 09:16:37 CDT Esvin Hudson [facility]-87604 Level 3 Est. Patient 09:06:58 CDT Esvin Tristan [facility] CPT-99047 Level 3 Est. Patient 10:05:29 CDT Esvin [place] PA [facility] CPT-95470 Level 3 Est. Patient 10:38:45 CDT Esvin Tristan [facility] CPT-65053 Level 3 Est. Patient 10:09:45 CDT Esvin Tristan PA [facility] CPT-99676 Level 3 Est. Patient 09:26:37 CDT Esvin Tristan [facility] CPT-01516 Level 3 Est. Patient 10:34:42 FURNITURE DIPPER Esvin Tristan [facility] CPT-53765 Level 3 Est. Patient 10:45:47 FURNITURE DIPPER Esvin Tristan [facility] CPT-36090 Level 3 Est. Patient 10:45:22 FURNITURE DIPPER Esvin Tristan [facility] CPT-54539 Level 3 Est. Patient 14:18:30 FURNITURE DIPPER Esvin Tristan [facility] CPT-20939 Level 3 Est. Patient 13:53:29 FURNITURE DIPPER Esvin Tristan [facility] CPT-77850 Level 3 Est. Patient 10:34:11 CDT Esvin [place] [facility] Procedures Code Procedure Name Date Entry Date Standard Description CPT-28267 Venipuncture Draw Fee 09:26:55 CDT CPT-33383 Venipuncture Draw Fee 11:55:52 CDT CPT-50146 Spec Collection and Handling Fee 09:16:37 CDT CPT-08531 Venipuncture Draw Fee 09:16:37 CDT
--- OUTSIDE RECORDS SUMMARY | 2018-02-26 15:40 | XMS REPORT | Clinical Summary ---
Author Author Admin, E Organization [facility] Address Unknown Phone Unavailable Allergies, [...] unspecified site Health screening V70.0 Active Wily Vicetne Gonzalez DO Routine general medical examination at [...] TABS 1 twice a day VARENICLINE TARTRATE 99951907004 Active Wily Gonzalez DO Active TRIAMCINOLONE ACETONIDE 0.1 % CREA Apply to affected area 3 times daily for up to 2 weeks TRIAMCINOLONE ACETONIDE 37285347768 Active Wily Gonzalez DO Active [id number]-VIFBRBCDD-GLMY 167-83-8 MG TABS 1 tab po daily ILCOZQM-[id number]-PHMJ 11225580666 No Longer Active Wily Gonzalez DO Active NYSTATIN 894810 UNIT/GM CREA apply to rash TID PRN NYSTATIN 62724394224 No Longer Active Wily Gonzalez DO Active POLY-IRON 150 150 MG CAPS 1 tab po bid POLYSACCHARIDE IRON COMPLEX 54988061792 No Longer Active Wily Gonzalez DO Active FLONASE ALLERGY RELIEF 50 MCG/ACT NASAL SUSP 2 sprays each nostril every day FLUTICASONE PROPIONATE 39169482662 Active Jodi Lucas FIRST AID DIRECTOR Active CLEMASTINE FUMARATE 1.34 MG ORAL TABS 1 tab PO BID CLEMASTINE FUMARATE 65811152438 No Longer Active Wily Gonzalez DO Active FLOMAX 0.4 MG CAPS 1 capsule in the evening for night time urination. TAMSULOSIN HCL 43173306902 No Longer Active Wily Gonzalez DO Active PROTONIX 40 MG TBEC 1 po daily PANTOPRAZOLE SODIUM 51373731443 Active Agnieszka Yeung Active HYDROXYZINE HCL 25 MG TAB 1 two times a day as needed for anxiety HYDROXYZINE HCL 41317367199 No Longer Active Wily Gonzalez DO Active ANUSOL-HC 25 MG SUPPOSITORY 1 rectally every 12 hours for irritation HYDROCORTISONE NAEL (RECTAL) 52855016824 No Longer Active Wily Gonzalez DO Active HYDROXYZINE HCL 25 MG TABS Take one (1) tablet by mouth twice a day HYDROXYZINE HCL 60119241591 No Longer Active Wily Gonzalez DO Active ZIAC 2.5-6.25 MG TAB 1 tablet daily for high blood pressure 10/27 BISOPROLOL-HCTZ 73867422666 No Longer Active Wily Gonzalez DO Active ZIAC 2.5-6.25 MG TAB 1 tablet every morning for high blood pressure BISOPROLOL-HCTZ 69717646709 No Longer Active Wily Gonzalez DO Active AMOXICILLIN 500 MG CAPS Take one (1) tablet by mouth three times a day 05/05 AMOXICILLIN 36411754334 No Longer Active Wily Gonzalez DO Active MORPHINE SULFATE ER 100 MG CR-TABS Take one (1) tablet by mouth twice a day MORPHINE SULFATE 70575007618 No Longer Active Wily Gonzalez DO Active MORPHINE SULFATE ER 100 MG [id number] 1 capsule twice daily for chronic pain MORPHINE SULFATE 50970620701 Active Wily Gonzalez DO Active CIALIS 10 MG TABS 1 every 72 hours as needed TADALAFIL 19867920397 No Longer Active Esvin PAULA Active FLONASE 50 MCG/ACT SUSP 2 SPRAY EACH NARE DAILY FLUTICASONE PROPIONATE 79619408552 No Longer Active Esvni PAULA Active CYCLOBENZAPRINE HCL 10 MG TABS Take one (1) tablet by mouth three times a day CYCLOBENZAPRINE HCL 39110146425 Active Agnieszka Yeung Active OPANA ER (CRUSH RESISTANT) 40 MG [id number] Take one (1) tablet by mouth twice a day OXYMORPHONE HCL 55222342277 No Longer Active Esvin PAULA Active PROAIR HFA 108 (90 BASE) MCG/ACT AERS 2 puffs every four hours as needed ALBUTEROL SULFATE 56914937423 No Longer Active Esvin PAULA Active CLEARLAX POWD 17gm q day prn constipation POLYETHYLENE GLYCOL 3350 84868839977 Active Wily Gonzalez DO Active MORPHINE SULFATE ER 100 MG WD34H-QWC Take one (1) tablet by mouth twice a day MORPHINE SULFATE 02774574362 No Longer Active Esvin PAULA Active FLEXERIL 10 MG TAB 1 tablet by mouth 3 times daily as needed CYCLOBENZAPRINE HCL 36632840791 No Longer Active Esvin PAULA Active CELEBREX 200 MG CAPS 1 tablet by mouth twice daily with meals CELECOXIB 70665389772 No Longer Active Esvin PAULA Active NEXIUM 40 MG CPDR 1 cap daily ESOMEPRAZOLE MAGNESIUM 64853612011 No Longer Active Esvin PAULA Active MOBIC 15 MG TABS 1 tab daily MELOXICAM 22129735232 No Longer Active Esvin PAULA Active LISINOPRIL 20 MG TABS Take 1 tablet by mouth daily LISINOPRIL 37113504110 No Longer Active Esvin PAULA Active DICLOFENAC SODIUM 50 MG TBEC 1 tablet by mouth four times daily DICLOFENAC SODIUM 35934772841 No Longer Active Paula Cooney RN Active VERAMYST 27.5 MCG/SPRAY SUSP 2 spray each nare daily FLUTICASONE FUROATE 36096967111 No Longer Active Meganbarbra Vargas RN Active ENDOCET 10-325 MG TABS Take one (1) tablet by mouth three times a day OXYCODONE-ACETAMINOPHEN 15023007722 Active Wily Gonzalez DO Active ALPRAZOLAM 2 MG TABS Take one (1) tablet by mouth three times a day ALPRAZOLAM 59442328510 Active Wily Gonzalez DO Active NEXIUM 40 MG CPDR 1 cap by mouth daily ESOMEPRAZOLE MAGNESIUM 05333130882 No Longer Active Esvin PAULA Active ALPRAZOLAM 2 MG TABS 1 tablet by mouth three times daily as needed ALPRAZOLAM 45073901377 No Longer Active Esvin PAULA Active HYDROXYZINE HCL 25 MG TAB take 1 every 4-6 hours as needed 07/01 HYDROXYZINE HCL 67349523959 No Longer Active Esvin PAULA Active ENDOCET 10-325 MG TABS 1 by mouth twice a day OXYCODONE-ACETAMINOPHEN 94927486726 No Longer Active Esvin PAULA Active MS CONTIN 100 MG [id number] 1 by mouth twice a day MORPHINE SULFATE 76113518397 No Longer Active Esvin PAULA Active SUDAFED 30 MG TAB 1-2 every 4-6 hours as needed PSEUDOEPHEDRINE HCL 56364726407 Active Marylou Melissa RPT,RMA Active VERAMYST 27.5 MCG/SPRAY SUSP 2 spray each nare daily VERAMYST 27.5 MCG/SPRAY SUSP FLUTICASONE FUROATE Inactive DICLOFENAC SODIUM 50 MG TBEC 1 tablet by mouth four times daily DICLOFENAC SODIUM 50 MG TBEC 308777 DICLOFENAC SODIUM Inactive LISINOPRIL 20 MG TABS Take 1 tablet by mouth daily LISINOPRIL 20 MG TABS 264695 LISINOPRIL Inactive MOBIC 15 MG TABS 1 tab daily MOBIC 15 MG TABS 941106 MELOXICAM Inactive NEXIUM 40 MG CPDR 1 cap daily NEXIUM 40 MG CPDR 279956 ESOMEPRAZOLE MAGNESIUM Inactive CELEBREX 200 MG CAPS 1 tablet by mouth twice daily with meals CELEBREX 200 MG CAPS 485303 CELECOXIB Inactive FLEXERIL 10 MG TAB 1 [...] a day 05/05 AMOXICILLIN 500 MG CAPS 089126 AMOXICILLIN Inactive ZIAC 2.5-6.25 MG TAB 1 tablet every morning for high blood pressure ZIAC 2.5-6.25 MG TAB 826304 BISOPROLOL-HCTZ Inactive ZIAC 2.5-6.25 MG TAB 1 tablet daily for high blood pressure 10/27 ZIAC 2.5-6.25 MG TAB 996267 BISOPROLOL-HCTZ Inactive HYDROXYZINE HCL 25 MG TABS Take one (1) tablet by mouth twice a day HYDROXYZINE HCL 25 MG TABS 822198 HYDROXYZINE HCL Inactive ANUSOL-HC 25 MG SUPPOSITORY 1 rectally every 12 hours for irritation ANUSOL-HC 25 MG SUPPOSITORY 7493869 HYDROCORTISONE NAEL (RECTAL ) Inactive HYDROXYZINE HCL 25 MG TAB 1 two times a day as needed for anxiety HYDROXYZINE HCL 25 MG TAB 521382 HYDROXYZINE HCL Inactive FLOMAX 0.4 MG CAPS 1 capsule in the evening for night time urination. FLOMAX 0.4 MG CAPS 005370 TAMSULOSIN HCL Inactive CLEMASTINE FUMARATE 1.34 MG ORAL TABS 1 tab PO BID CLEMASTINE FUMARATE 1.34 MG ORAL TABS 382920 CLEMASTINE FUMARATE Inactive POLY-IRON 150 150 MG CAPS 1 tab po bid POLY-IRON 150 150 MG CAPS POLYSACCHARIDE IRON COMPLEX Inactive NYSTATIN 005912 UNIT/GM CREA apply to rash TID PRN NYSTATIN 726565 UNIT/GM CREA 937045 NYSTATIN Inactive FCEWXZI-ITLDFOXIP-ILVW 167-83-8 MG TABS 1 tab po daily MGWPUID-OZFMAWDIW-QJNC 167-83-8 MG TABS [id number]-[id number]-DVXC Inactive MS CONTIN 100 MG [id number] 1 by mouth twice a day MS CONTIN 100 MG [id number]-AQB MORPHINE SULFATE Inactive ENDOCET 10-325 MG TABS 1 by mouth twice a day ENDOCET 10-325 MG TABS 5730896 OXYCODONE-ACETAMINOPHEN Inactive HYDROXYZINE HCL 25 MG TAB take 1 every 4-6 hours as needed 07/01 HYDROXYZINE HCL 25 MG TAB 833953 HYDROXYZINE HCL Inactive ALPRAZOLAM 2 MG TABS 1 tablet by mouth three times daily as needed ALPRAZOLAM 2 MG TABS 695724 ALPRAZOLAM Inactive NEXIUM 40 MG CPDR 1 cap by mouth daily NEXIUM 40 MG CPDR 155714 ESOMEPRAZOLE MAGNESIUM Inactive Advance Directives Directive Description [...] ... - Chemistry sodium, serum 140 mmol/L 997-946 5973/03/25 carbon dioxide, venous blood 31.3 mmol/L 21.0-32.0 potassium, serum 4.0 mmol/L 3.5-5.2 chloride, serum 101 mmol/L 98-107 blood glucose 96 mg/dL 65-110 urea nitrogen, blood 7 mg/dL 7-18 creatinine, serum 0.94 mg/dL 0.55-1.30 alanine aminotransferase (SGPT), serum 23 U/L 12-78 aspartate aminotransferase (SGOT), serum 21 U/L 15-37 calcium, serum 8.9 mg/dL 8.5-10.1 bilirubin, serum, total 0.30 mg/dL 0.00-1.00 cholesterol, serum 169 mg/dL 231-616 8625/03/25 triglyceride, serum, fasting 143 mg/dL 30-200 HDL [...] 5.0-8.5 Encounters Code Encounter Date Provider Facility CPT-30563 Level 3 Est. Patient 09:51:37 INTERACTIVE ACCOUNT MANAGER Wily Gonzalez [facility] CPT-05057 Level 3 Est. Patient 11:07:48 CDT Wily Gonzalez [facility] CPT-49910 Level 3 Est. Patient 11:24:[address] [facility] CPT-66580 Level 3 Est. Patient 15:19:54 INTERACTIVE ACCOUNT MANAGER Wily Gonzalez [facility] CPT-24750 Level 3 Est. Patient 10:04:45 CDT Wily Gonzalez [facility] CPT-12445 Level 3 Est. Patient 13:04:06 CDT Wily Gonzalez [facility] CPT-47905 Level 3 Est. Patient 12:23:04 CDT Wily Gonzalez [facility] CPT-31554 Level 3 Est. Patient 15:43:10 INTERACTIVE ACCOUNT MANAGER Wily Gonzalez [facility] CPT-07026 Level 3 Est. Patient 16:10:54 CDT Wily Gonzalez [facility] CPT-80462 Level 3 Est. Patient 19:50:51 CDT Wily Zhang [facility] CPT-09271 Level 3 Est. Patient 12:02:30 INTERACTIVE ACCOUNT MANAGER Wily Gonzalez [facility] CPT-50846 Level 3 Est. Patient 12:03:11 INTERACTIVE ACCOUNT MANAGER Wily Gonzalez [facility] CPT-40988 Level 3 Est. Patient 12:01:41 INTERACTIVE ACCOUNT MANAGER Wily Gonzalez [facility] CPT-59450 Level 3 Est. Patient 11:51:24 INTERACTIVE ACCOUNT MANAGER Wily Gonzalez [facility] CPT-02225 Level 3 Est. Patient 11:58:20 INTERACTIVE ACCOUNT MANAGER Wily Gonzalez [facility] CPT-95643 Level 3 Est. Patient 08:31:36 INTERACTIVE ACCOUNT MANAGER Wily Gonzalez [facility] CPT-46494 Level 3 Est. Patient 21:57:36 CDT Wily Gonzalez [facility] CPT-94435 Level 3 Est. Patient 10:49:58 CDT Esvin PAULA [facility] CPT-98949 Level 3 Est. Patient 11:22:52 CDT Esvin PAULA [facility] CPT-55259 Level 3 Est. Patient 13:49:41 CDT Esvin PAULA [facility] CPT-21994 Level 3 Est. Patient 11:54:53 CDT Esvin PAULA [facility] CPT-77449 Level 3 Est. Patient 09:07:11 CDT Esvin PAULA [facility] CPT-84296 Level 3 Est. Patient 13:52:47 CDT Esvin PAULA [facility] CPT-42851 Level 3 Est. Patient 11:26:46 CDT Esvin PAULA [facility] CPT-64695 Level 3 Est. Patient 10:25:00 INTERACTIVE ACCOUNT MANAGER Esvin PAULA [facility] CPT-20957 Level 3 Est. Patient 11:39:11 INTERACTIVE ACCOUNT MANAGER Esvin PAULA [facility] CPT-47195 Level 3 Est. Patient 13:24:24 INTERACTIVE ACCOUNT MANAGER Esvin Tristan PA [facility] CPT-96853 Level 3 Est. Patient 10:26:13 INTERACTIVE ACCOUNT MANAGER Esvin Wakeeney PA [facility] CPT-75306 Level 3 Est. Patient 10:21:21 CDT Esvin Tristan PA [facility] CPT-90624 Level 3 Est. Patient 10:26:30 CDT Esvin Hudson CHAI [facility] CPT-41559 Level 3 Est. Patient 09:16:37 CDT Esvin Wakeeney PA [facility]-68999 Level 3 Est. Patient 09:06:58 CDT Esvin Wakeeney PA [facility] CPT-71711 Level 3 Est. Patient 10:05:29 CDT Esvin Tristan PA [facility] CPT-13851 Level 3 Est. Patient 10:38:45 CDT Esvin Wakeeney PA [facility] CPT-67967 Level 3 Est. Patient 10:09:45 CDT Esvin Wakeeney PA [facility] CPT-09807 Level 3 Est. Patient 09:26:37 CDT Esvin Tristan PA [facility] CPT-66429 Level 3 Est. Patient 10:34:42 INTERACTIVE ACCOUNT MANAGER Esvin Tristan CHAI [facility] CPT-08302 Level 3 Est. Patient 10:45:47 INTERACTIVE ACCOUNT MANAGER Esvin Tristan PA [facility] CPT-37239 Level 3 Est. Patient 10:45:22 INTERACTIVE ACCOUNT MANAGER Esvin Tristan PA [facility]-10843 Level 3 Est. Patient 14:18:30 INTERACTIVE ACCOUNT MANAGER Esvin PAULA [facility] CPT-51685 Level 3 Est. Patient 13:53:29 INTERACTIVE ACCOUNT MANAGER Esvin PAULA [facility] CPT-08974 Level 3 Est. Patient 10:34:11 CDT Esvin Hudson [facility] Procedures Code Procedure Name Date Entry Date Standard Description CPT-12271 LS spine AP and Lat - XRAY USE ONLY 10:07:43 INTERACTIVE ACCOUNT MANAGER 10/26 CPT-31573 Venipuncture Draw Fee 09:51:16 INTERACTIVE ACCOUNT MANAGER CPT-34543 Smoking Cessation counseling 09:39:47 INTERACTIVE ACCOUNT MANAGER CPT-G0438 Initial Annual Wellness Exam 09:37:28 INTERACTIVE ACCOUNT MANAGER CPT-37651 Venipuncture Draw Fee 09:26:55 CDT CPT-96078 Venipuncture Draw Fee 11:55:52 CDT CPT-19984 Spec Collection and Handling Fee 09:16:37 CDT CPT-45300 Venipuncture Draw Fee 09:16:37 CDT
--- OUTSIDE RECORDS SUMMARY | 2018-02-26 15:41 | XMS REPORT | Clinical Summary ---
Author Author Admin, E Organization [facility] Address Unknown Phone Unavailable Allergies, Adverse [...] lying down x 1 hour. ALENDRONATE SODIUM [id number] Active Rose Bang Active CALCIUM 600 MG ORAL TABS 1 po q day CALCIUM 50190310153 Active Rose Bang Active CHANTIX 1 MG TABS 1 twice a day VARENICLINE TARTRATE 13864091592 Active Wily Gonzalez DO Active TRIAMCINOLONE ACETONIDE 0.1 % CREA Apply to affected area 3 times daily for up to 2 weeks TRIAMCINOLONE ACETONIDE 36734433523 Active Wily Gonzalez DO Active [id number]-[id number]-GDKQ 167-83-8 MG TABS 1 tab po daily [id number] 39892788149 No Longer Active Wily Gonzalez DO Active NYSTATIN 756742 UNIT/GM CREA apply to rash TID PRN NYSTATIN 66800731382 No Longer Active Wily Gonzalez DO Active POLY-IRON 150 150 MG CAPS 1 tab po bid POLYSACCHARIDE IRON COMPLEX 38438003876 No Longer Active Wily Gonzalez DO Active FLONASE ALLERGY RELIEF 50 MCG/ACT NASAL SUSP 2 sprays each nostril every day FLUTICASONE PROPIONATE 97827697885 Active Jodi Lucas APRN Active CLEMASTINE FUMARATE 1.34 MG ORAL TABS 1 tab PO BID CLEMASTINE FUMARATE 09461544174 No Longer Active Wily Gonazlez DO Active FLOMAX 0.4 MG CAPS 1 capsule in the evening for night time urination. TAMSULOSIN HCL 92876689996 No Longer Active Wily Gonzalez DO Active PROTONIX 40 MG TBEC 1 po daily PANTOPRAZOLE SODIUM 87479753587 Active Agnieszka Yeung Active HYDROXYZINE HCL 25 MG TAB 1 two times a day as needed for anxiety HYDROXYZINE HCL 82331994156 No Longer Active Wily Gonzalez DO Active ANUSOL-HC 25 MG SUPPOSITORY 1 rectally every 12 hours for irritation HYDROCORTISONE NAEL (RECTAL) 43588793840 No Longer Active Wily Gonzalez DO Active HYDROXYZINE HCL 25 MG TABS Take one (1) tablet by mouth twice a day HYDROXYZINE HCL 88509434099 No Longer Active Wily Gonzalez DO Active ZIAC 2.5-6.25 MG TAB 1 tablet daily for high blood pressure 10/27 BISOPROLOL-HCTZ 03521135705 No Longer Active Wily Gonzalez DO Active ZIAC 2.5-6.25 MG TAB 1 tablet every morning for high blood pressure BISOPROLOL-HCTZ 56136726337 No Longer Active Wily Gonzalez DO Active AMOXICILLIN 500 MG CAPS Take one (1) tablet by mouth three times a day 05/05 AMOXICILLIN 55496355191 No Longer Active Wily Gonzalez DO Active MORPHINE SULFATE ER 100 MG CR-TABS Take one (1) tablet by mouth twice a day MORPHINE SULFATE 33338619964 No Longer Active Wily Gonzalez DO Active MORPHINE SULFATE ER 100 MG [id number] 1 capsule twice daily for chronic pain MORPHINE SULFATE 42237826301 Active Wily Gonzalez DO Active CIALIS 10 MG TABS 1 every 72 hours as needed TADALAFIL 70199282645 No Longer Active Esvin PAULA Active FLONASE 50 MCG/ACT SUSP 2 SPRAY EACH NARE DAILY FLUTICASONE PROPIONATE 51265760535 No Longer Active Esvin PAULA Active CYCLOBENZAPRINE HCL 10 MG TABS Take one (1) tablet by mouth three times a day CYCLOBENZAPRINE HCL 43404711397 Active Lisa Berkowitz Active OPANA ER (CRUSH RESISTANT) 40 MG [id number] Take one (1) tablet by mouth twice a day OXYMORPHONE HCL 91923940627 No Longer Active Esvin PAULA Active PROAIR HFA 108 (90 BASE) MCG/ACT AERS 2 puffs every four hours as needed ALBUTEROL SULFATE 63639734296 No Longer Active Esvin PAULA Active CLEARLAX POWD 17gm q day prn constipation POLYETHYLENE GLYCOL 3350 38441995458 Active Wily Gonzalez DO Active MORPHINE SULFATE ER 100 MG [id number] Take one (1) tablet by mouth twice a day MORPHINE SULFATE 86685105993 No Longer Active Esvin PAULA Active FLEXERIL 10 MG TAB 1 tablet by mouth 3 times daily as needed CYCLOBENZAPRINE HCL 39911137734 No Longer Active Esvin PAULA Active CELEBREX 200 MG CAPS 1 tablet by mouth twice daily with meals CELECOXIB 92334320059 No Longer Active Esvin PAULA Active NEXIUM 40 MG CPDR 1 cap daily ESOMEPRAZOLE MAGNESIUM 27196563385 No Longer Active Esvin PAULA Active MOBIC 15 MG TABS 1 tab daily MELOXICAM 39857734866 No Longer Active Esvin PAULA Active LISINOPRIL 20 MG TABS Take 1 tablet by mouth daily LISINOPRIL 37085819880 No Longer Active Esvin PAULA Active DICLOFENAC SODIUM 50 MG TBEC 1 tablet by mouth four times daily DICLOFENAC SODIUM 14049545756 No Longer Active Paula Cooney RN Active VERAMYST 27.5 MCG/SPRAY SUSP 2 spray each nare daily FLUTICASONE FUROATE 25116825647 No Longer Active Megan Vargas RN Active ENDOCET 10-325 MG TABS Take one (1) tablet by mouth three times a day OXYCODONE-ACETAMINOPHEN 03483209671 Active Wily Gonzalez DO Active ALPRAZOLAM 2 MG TABS Take one (1) tablet by mouth three times a day ALPRAZOLAM 06826307187 Active Wily Gonzalez DO Active NEXIUM 40 MG CPDR 1 cap by mouth daily ESOMEPRAZOLE MAGNESIUM 05986551583 No Longer Active Esvin PAULA Active ALPRAZOLAM 2 MG TABS 1 tablet by mouth three times daily as needed ALPRAZOLAM 31225370824 No Longer Active Esvin PAULA Active HYDROXYZINE HCL 25 MG TAB take 1 every 4-6 hours as needed 07/01 HYDROXYZINE HCL 40104558614 No Longer Active Esvin PAULA Active ENDOCET 10-325 MG TABS 1 by mouth twice a day OXYCODONE-ACETAMINOPHEN 31658214321 No Longer Active Esvin PAULA Active MS CONTIN 100 MG [id number] 1 by mouth twice a day MORPHINE SULFATE 24756318763 No Longer Active Esvin PAULA Active SUDAFED 30 MG TAB 1-2 every 4-6 hours as needed PSEUDOEPHEDRINE HCL 60673427731 Active Marylou Melissa RPT,RMA Active VERAMYST 27.5 MCG/SPRAY SUSP 2 spray each nare daily VERAMYST 27.5 MCG/SPRAY SUSP FLUTICASONE FUROATE Inactive DICLOFENAC SODIUM 50 MG TBEC 1 tablet by mouth four times daily DICLOFENAC SODIUM 50 MG TBEC 193730 DICLOFENAC SODIUM Inactive LISINOPRIL 20 MG TABS Take 1 tablet by mouth daily LISINOPRIL 20 MG TABS 870206 LISINOPRIL Inactive MOBIC 15 MG TABS 1 tab daily MOBIC 15 MG TABS 801048 MELOXICAM Inactive NEXIUM 40 MG CPDR 1 cap daily NEXIUM 40 MG CPDR 243700 ESOMEPRAZOLE MAGNESIUM Inactive CELEBREX 200 MG CAPS 1 tablet by mouth twice daily with meals CELEBREX 200 MG CAPS 924313 CELECOXIB Inactive FLEXERIL 10 MG TAB 1 [...] a day 05/05 AMOXICILLIN 500 MG CAPS 702149 AMOXICILLIN Inactive ZIAC 2.5-6.25 MG TAB 1 tablet every morning for high blood pressure ZIAC 2.5-6.25 MG TAB 654193 BISOPROLOL-HCTZ Inactive ZIAC 2.5-6.25 MG TAB 1 tablet daily for high blood pressure 10/27 ZIAC 2.5-6.25 MG TAB 953590 BISOPROLOL-HCTZ Inactive HYDROXYZINE HCL 25 MG TABS Take one (1) tablet by mouth twice a day HYDROXYZINE HCL 25 MG TABS 779389 HYDROXYZINE HCL Inactive ANUSOL-HC 25 MG SUPPOSITORY 1 rectally every 12 hours for irritation ANUSOL-HC 25 MG SUPPOSITORY 0679031 HYDROCORTISONE NAEL (RECTAL ) Inactive HYDROXYZINE HCL 25 MG TAB 1 two times a day as needed for anxiety HYDROXYZINE HCL 25 MG TAB 251573 HYDROXYZINE HCL Inactive FLOMAX 0.4 MG CAPS 1 capsule in the evening for night time urination. FLOMAX 0.4 MG CAPS 723587 TAMSULOSIN HCL Inactive CLEMASTINE FUMARATE 1.34 MG ORAL TABS 1 tab PO BID CLEMASTINE FUMARATE 1.34 MG ORAL TABS 080257 CLEMASTINE FUMARATE Inactive POLY-IRON 150 150 MG CAPS 1 tab po bid POLY-IRON 150 150 MG CAPS POLYSACCHARIDE IRON COMPLEX Inactive NYSTATIN 213143 UNIT/GM CREA apply to rash TID PRN NYSTATIN 366001 UNIT/GM CREA 340442 NYSTATIN Inactive [id number] 167-83-8 MG TABS 1 tab po daily [id number] 167-83-8 MG TABS [id number] Inactive MS CONTIN 100 MG SG21P-ESN 1 by mouth twice a day MS CONTIN 100 MG [id number] MORPHINE SULFATE Inactive ENDOCET 10-325 MG TABS 1 by mouth twice a day ENDOCET 10-325 MG TABS 1904515 OXYCODONE-ACETAMINOPHEN Inactive HYDROXYZINE HCL 25 MG TAB take 1 every 4-6 hours as needed 07/01 HYDROXYZINE HCL 25 MG TAB 962756 HYDROXYZINE HCL Inactive ALPRAZOLAM 2 MG TABS 1 tablet by mouth three times daily as needed ALPRAZOLAM 2 MG TABS 815980 ALPRAZOLAM Inactive NEXIUM 40 MG CPDR 1 cap by mouth daily NEXIUM 40 MG CPDR 509767 ESOMEPRAZOLE MAGNESIUM Inactive Advance Directives Directive Description [...] Measured Encounters Code Encounter Date Provider Facility CPT-67658 Level 3 Est. Patient 09:51:37 FIN[employer]CIAL SALES PROFESSIONAL Wily W Carlos [facility] CPT-13936 Level 3 Est. Patient 11:07:48 CDT Wily Gonzalez [facility] CPT-29153 Level 3 Est. Patient 11:24:24 CDT Wily Gonzalez [facility] CPT-09781 Level 3 Est. Patient 15:19:54 FIN[employer]CIAL SALES PROFESSIONAL Wily Gonzalez [facility] CPT-02877 Level 3 Est. Patient 10:04:45 CDT Wily Gonzalez [facility] CPT-72364 Level 3 Est. Patient 13:04:06 CDT Wily Gonzalez [facility] CPT-39460 Level 3 Est. Patient 12:23:04 CDT Wily Gonzalez [facility] CPT-98365 Level 3 Est. Patient 15:43:10 FIN[employer]CIAL SALES PROFESSIONAL Wily Gonzalez [facility] CPT-01460 Level 3 Est. Patient 16:10:54 CDT Wily Gonzalez [facility] CPT-31275 Level 3 Est. Patient 19:50:51 CDT Wily Gonzalez [facility] CPT-23005 Level 3 Est. Patient 12:02:30 FIN[employer]CIAL SALES PROFESSIONAL Wily Gonzalez [facility] CPT-63872 Level 3 Est. Patient 12:03:11 FINANCIAL SALES PROFESSIONAL Wily Gonzalez [facility] CPT-16021 Level 3 Est. Patient 12:01:41 FINANCIAL SALES PROFESSIONAL Wily Gonzalez [facility] CPT-54507 Level 3 Est. Patient 11:51:24 FIN[employer]CIAL SALES PROFESSIONAL Wily Gonzalez [facility] CPT-69129 Level 3 Est. Patient 11:58:20 FIN[employer]CIAL SALES PROFESSIONAL Wily Zhang Carlos [facility] CPT-77175 Level 3 Est. Patient 08:31:36 FIN[employer]CIAL SALES PROFESSIONAL Wily Zhang Carlos [facility] CPT-20785 Level 3 Est. Patient 21:57:36 CDT Wily Vicente Carlos [facility] CPT-48408 Level 3 Est. Patient 10:49:58 CDT Esvin PAULA [facility]-36599 Level 3 Est. Patient 11:22:52 CDT Esvin PAULA [facility] CPT-95000 Level 3 Est. Patient 13:49:41 CDT Esvin PAULA [facility] CPT-04249 Level 3 Est. Patient 11:54:53 CDT Esvin [facility] CPT-00857 Level 3 Est. Patient 09:07:11 CDT Esvin PAULA [facility] CPT-96329 Level 3 Est. Patient 13:52:47 CDT Esvin PAULA [facility] CPT-77561 Level 3 Est. Patient 11:26:46 CDT Esvin PAULA [facility] CPT-29112 Level 3 Est. Patient 10:25:00 FIN[employer]CIAL SALES PROFESSIONAL Esvin Tristan PA [facility] CPT-77666 Level 3 Est. Patient 11:39:11 FINANCIAL SALES PROFESSIONAL Esvin PAULA [facility] CPT-43348 Level 3 Est. Patient 13:24:24 FINANCIAL SALES PROFESSIONAL Esvin PAULA [facility] CPT-72730 Level 3 Est. Patient 10:26:13 FINANCIAL SALES PROFESSIONAL Esvin PAULA [facility]-01772 Level 3 Est. Patient 10:21:21 CDT Esvin PAULA [facility] CPT-28447 Level 3 Est. Patient 10:26:30 CDT Esvin PAULA [facility] CPT-18933 Level 3 Est. Patient 09:16:37 CDT Esvin PAULA [facility]-23940 Level 3 Est. Patient 09:06:58 CDT Esvin Tristan [facility] CPT-65759 Level 3 Est. Patient 10:05:29 CDT Esvin Hudson [facility] CPT-73967 Level 3 Est. Patient 10:38:45 CDT Esvin Hudson [facility] CPT-11940 Level 3 Est. Patient 10:09:45 CDT Esvin Hudson [facility] CPT-69027 Level 3 Est. Patient 09:26:37 CDT Esvin [facility] CPT-91004 Level 3 Est. Patient 10:34:42 FIN[employer]CIAL SALES PROFESSIONAL Esvin Tristan [facility] CPT-90777 Level 3 Est. Patient 10:45:47 FIN[employer]CIAL SALES PROFESSIONAL Esvin Tristan [facility] CPT-31096 Level 3 Est. Patient 10:45:22 FIN[employer]CIAL SALES PROFESSIONAL Esvin [facility] CPT-32426 Level 3 Est. Patient 14:18:30 FIN[employer]CIAL SALES PROFESSIONAL Esvin [facility] CPT-59130 Level 3 Est. Patient 13:53:29 FIN[employer]CIAL SALES PROFESSIONAL Esvin [facility] CPT-68245 Level 3 Est. Patient 10:34:11 CDT Esvin [facility] Procedures Code Procedure Name Date Entry Date Standard Description CPT-66177 Bone Density - XRAY USE ONLY 11:29:32 CDT CPT-90773 LS spine AP and Lat - XRAY USE ONLY 10:07:43 [employer] SAL[employer]ESSIONAL 10/26 CPT-97031 Venipuncture Draw Fee 09:51:16 [employer] SAL[employer] CPT-83496 Smoking Cessation counseling 09:39:47 [employer] SAL[employer] CPT-G0438 Initial Annual Wellness Exam 09:37:28 [employer] SALES PROFESSIONAL CPT-38270 Venipuncture Draw Fee 09:26:55 CDT CPT-26997 Venipuncture Draw Fee 11:55:52 CDT CPT-73117 Spec Collection and Handling Fee 09:16:37 CDT CPT-48231 Venipuncture Draw Fee 09:16:37 CDT
--- OUTSIDE RECORDS SUMMARY | 2018-02-26 15:42 | XMS REPORT | Clinical Summary ---
Author Author Admin, E Organization [employer] Address Unknown Phone Unavailable Allergies, Adverse Reactions, [...] Inactive Wily Zhang Carlos Hemorrhoids ICD-455.6 Inactive Wliy Zhang Carlos 05/08 Nocturia ICD-788.43 Inactive Wily Gonzalez DO U T I ICD-599.0 Inactive Wily Gonzalez DO U R I ICD-465.9 Inactive Wily Gonzalez DO Medication List Medication Instructions Start Date Stop Date Generic Name NDC Status Provider Patient Instruction CHANTIX 1 MG TABS 1 twice a day VARENICLINE TARTRATE 87792235921 Active Wily Gonzalez DO Active TRIAMCINOLONE ACETONIDE 0.1 % CREA Apply to affected area 3 times daily for up to 2 weeks TRIAMCINOLONE ACETONIDE 26559944517 Active Wily Gonzalez DO Active [id number]-[id number] 167-83-8 MG TABS 1 tab po daily [id number] 88662568393 No Longer Active Wily Gonzalez DO Active NYSTATIN 037237 UNIT/GM CREA apply to rash TID PRN NYSTATIN 46774816857 No Longer Active Wily Gonzalez DO Active POLY-IRON 150 150 MG CAPS 1 tab po bid POLYSACCHARIDE IRON COMPLEX 05156654653 No Longer Active Wily Gonzalez DO Active FLONASE ALLERGY RELIEF 50 MCG/ACT NASAL SUSP 2 sprays each nostril every day FLUTICASONE PROPIONATE 72842459474 Active Jodi Lucas SPECIALIZED DEVELOPER Active CLEMASTINE FUMARATE 1.34 MG ORAL TABS 1 tab PO BID CLEMASTINE FUMARATE 58583975226 No Longer Active Wily Gonzalez DO Active FLOMAX 0.4 MG CAPS 1 capsule in the evening for night time urination. TAMSULOSIN HCL 11273882625 No Longer Active Wily Gonzalez DO Active PROTONIX 40 MG TBEC 1 po daily PANTOPRAZOLE SODIUM 47125644332 Active Agnieszka Yeung Active HYDROXYZINE HCL 25 MG TAB 1 two times a day as needed for anxiety HYDROXYZINE HCL 71199550759 No Longer Active Wily Gonzalez DO Active ANUSOL-HC 25 MG SUPPOSITORY 1 rectally every 12 hours for irritation HYDROCORTISONE NAEL (RECTAL) 01868550793 No Longer Active Wily Gonzalez DO Active HYDROXYZINE HCL 25 MG TABS Take one (1) tablet by mouth twice a day HYDROXYZINE HCL 24830368455 No Longer Active Wily Gonzalez DO Active ZIAC 2.5-6.25 MG TAB 1 tablet daily for high blood pressure 10/27 BISOPROLOL-HCTZ 68745611499 No Longer Active Wily Gonzalez DO Active ZIAC 2.5-6.25 MG TAB 1 tablet every morning for high blood pressure BISOPROLOL-HCTZ 59028293815 No Longer Active Wily Gonzalez DO Active AMOXICILLIN 500 MG CAPS Take one (1) tablet by mouth three times a day 05/05 AMOXICILLIN 75157797321 No Longer Active Wily Gonzalez DO Active MORPHINE SULFATE ER 100 MG CR-TABS Take one (1) tablet by mouth twice a day MORPHINE SULFATE 40209859977 No Longer Active Wily Gonzalez DO Active MORPHINE SULFATE ER 100 MG [id number] 1 capsule twice daily for chronic pain MORPHINE SULFATE 89483014185 Active Wily Gonzalez DO Active CIALIS 10 MG TABS 1 every 72 hours as needed TADALAFIL 26161552423 No Longer Active Esvin PAULA Active FLONASE 50 MCG/ACT SUSP 2 SPRAY EACH NARE DAILY FLUTICASONE PROPIONATE 86460480875 No Longer Active Esvin PAULA Active CYCLOBENZAPRINE HCL 10 MG TABS Take one (1) tablet by mouth three times a day CYCLOBENZAPRINE HCL 05297600995 Active Agnieszka Yeung Active OPANA ER (CRUSH RESISTANT) 40 MG KZ90G-QHV Take one (1) tablet by mouth twice a day OXYMORPHONE HCL 86951845607 No Longer Active Esvin PAULA Active PROAIR HFA 108 (90 BASE) MCG/ACT AERS 2 puffs every four hours as needed ALBUTEROL SULFATE 46816333295 No Longer Active Esvin PAULA Active CLEARLAX POWD 17gm q day prn constipation POLYETHYLENE GLYCOL 3350 44930767992 Active Wily Gonzalez DO Active MORPHINE SULFATE ER 100 MG JG81M-[id number] Take one (1) tablet by mouth twice a day MORPHINE SULFATE 16621412573 No Longer Active Esvin PAULA Active FLEXERIL 10 MG TAB 1 tablet by mouth 3 times daily as needed CYCLOBENZAPRINE HCL 62269317599 No Longer Active Esvin PAULA Active CELEBREX 200 MG CAPS 1 tablet by mouth twice daily with meals CELECOXIB 54240594836 No Longer Active Esvin PAULA Active NEXIUM 40 MG CPDR 1 cap daily ESOMEPRAZOLE MAGNESIUM 76586015319 No Longer Active Esvin PAULA Active MOBIC 15 MG TABS 1 tab daily MELOXICAM 33250260317 No Longer Active Esvin PAULA Active LISINOPRIL 20 MG TABS Take 1 tablet by mouth daily LISINOPRIL 81431374173 No Longer Active Esvin PAULA Active DICLOFENAC SODIUM 50 MG TBEC 1 tablet by mouth four times daily DICLOFENAC SODIUM 71177270808 No Longer Active Paula Cooney RN Active VERAMYST 27.5 MCG/SPRAY SUSP 2 spray each nare daily FLUTICASONE FUROATE 35969661703 No Longer Active Meganbarbra Vargas RN Active ENDOCET 10-325 MG TABS Take one (1) tablet by mouth three times a day OXYCODONE-ACETAMINOPHEN 27004439772 Active Wily Gonzalez DO Active ALPRAZOLAM 2 MG TABS Take one (1) tablet by mouth three times a day ALPRAZOLAM 02065491645 Active Wily Gonzalez DO Active NEXIUM 40 MG CPDR 1 cap by mouth daily ESOMEPRAZOLE MAGNESIUM 87341293573 No Longer Active Esvin PAULA Active ALPRAZOLAM 2 MG TABS 1 tablet by mouth three times daily as needed ALPRAZOLAM 92180109249 No Longer Active Esvin PAULA Active HYDROXYZINE HCL 25 MG TAB take 1 every 4-6 hours as needed 07/01 HYDROXYZINE HCL 76075992907 No Longer Active Esvin PAULA Active ENDOCET 10-325 MG TABS 1 by mouth twice a day OXYCODONE-ACETAMINOPHEN 23886104831 No Longer Active Esvin PAULA Active MS CONTIN 100 MG [id number] 1 by mouth twice a day MORPHINE SULFATE 85081791296 No Longer Active Esvin PAULA Active SUDAFED 30 MG TAB 1-2 every 4-6 hours as needed PSEUDOEPHEDRINE HCL 98510500876 Active Marylou Melissa RPT,RMA Active VERAMYST 27.5 MCG/SPRAY SUSP 2 spray each nare daily VERAMYST 27.5 MCG/SPRAY SUSP FLUTICASONE FUROATE Inactive DICLOFENAC SODIUM 50 MG TBEC 1 tablet by mouth four times daily DICLOFENAC SODIUM 50 MG TBEC 514489 DICLOFENAC SODIUM Inactive LISINOPRIL 20 MG TABS Take 1 tablet by mouth daily LISINOPRIL 20 MG TABS 565694 LISINOPRIL Inactive MOBIC 15 MG TABS 1 tab daily MOBIC 15 MG TABS 023939 MELOXICAM Inactive NEXIUM 40 MG CPDR 1 cap daily NEXIUM 40 MG CPDR 939641 ESOMEPRAZOLE MAGNESIUM Inactive CELEBREX 200 MG CAPS 1 tablet by mouth twice daily with meals CELEBREX 200 MG CAPS 880416 CELECOXIB Inactive FLEXERIL 10 MG TAB 1 [...] a day 05/05 AMOXICILLIN 500 MG CAPS 720746 AMOXICILLIN Inactive ZIAC 2.5-6.25 MG TAB 1 tablet every morning for high blood pressure ZIAC 2.5-6.25 MG TAB 424820 BISOPROLOL-HCTZ Inactive ZIAC 2.5-6.25 MG TAB 1 tablet daily for high blood pressure 10/27 ZIAC 2.5-6.25 MG TAB 877433 BISOPROLOL-HCTZ Inactive HYDROXYZINE HCL 25 MG TABS Take one (1) tablet by mouth twice a day HYDROXYZINE HCL 25 MG TABS 445667 HYDROXYZINE HCL Inactive ANUSOL-HC 25 MG SUPPOSITORY 1 rectally every 12 hours for irritation ANUSOL-HC 25 MG SUPPOSITORY 8509556 HYDROCORTISONE NAEL (RECTAL ) Inactive HYDROXYZINE HCL 25 MG TAB 1 two times a day as needed for anxiety HYDROXYZINE HCL 25 MG TAB 680677 HYDROXYZINE HCL Inactive FLOMAX 0.4 MG CAPS 1 capsule in the evening for night time urination. FLOMAX 0.4 MG CAPS 152853 TAMSULOSIN HCL Inactive CLEMASTINE FUMARATE 1.34 MG ORAL TABS 1 tab PO BID CLEMASTINE FUMARATE 1.34 MG ORAL TABS 734560 CLEMASTINE FUMARATE Inactive POLY-IRON 150 150 MG CAPS 1 tab po bid POLY-IRON 150 150 MG CAPS POLYSACCHARIDE IRON COMPLEX Inactive NYSTATIN 410665 UNIT/GM CREA apply to rash TID PRN NYSTATIN 922790 UNIT/GM CREA 147037 NYSTATIN Inactive FSWNTXT-SCVMADSYN-PGEQ 167-83-8 MG TABS 1 tab po daily ZEWOLUE-RACWGAIHA-PQMF 167-83-8 MG TABS RANNRGI-MSFIIYWFQ-XSHX Inactive MS CONTIN 100 MG BL84R-KVF 1 by mouth twice a day MS CONTIN 100 MG [id number] MORPHINE SULFATE Inactive ENDOCET 10-325 MG TABS 1 by mouth twice a day ENDOCET 10-325 MG TABS 3323512 OXYCODONE-ACETAMINOPHEN Inactive HYDROXYZINE HCL 25 MG TAB take 1 every 4-6 hours as needed 07/01 HYDROXYZINE HCL 25 MG TAB 000490 HYDROXYZINE HCL Inactive ALPRAZOLAM 2 MG TABS 1 tablet by mouth three times daily as needed ALPRAZOLAM 2 MG TABS 639862 ALPRAZOLAM Inactive NEXIUM 40 MG CPDR 1 cap by mouth daily NEXIUM 40 MG CPDR 967160 ESOMEPRAZOLE MAGNESIUM Inactive Advance Directives Directive Description [...] ... - Chemistry sodium, serum 140 mmol/L 692-110 8955/03/25 carbon dioxide, venous blood 31.3 mmol/L 21.0-32.0 potassium, serum 4.0 mmol/L 3.5-5.2 chloride, serum 101 mmol/L 98-107 blood glucose 96 mg/dL 65-110 urea nitrogen, blood 7 mg/dL 7-18 creatinine, serum 0.94 mg/dL 0.55-1.30 alanine aminotransferase (SGPT), serum 23 U/L 12-78 aspartate aminotransferase (SGOT), serum 21 U/L 15-37 calcium, serum 8.9 mg/dL 8.5-10.1 bilirubin, serum, total 0.30 mg/dL 0.00-1.00 cholesterol, serum 169 mg/dL 468-708 1323/03/25 triglyceride, serum, fasting 143 mg/dL 30-200 HDL [...] 5.0-8.5 Encounters Code Encounter Date Provider Facility CPT-62257 Level 3 Est. Patient 09:51:37 PRODUCT SAFETY ASSOCIATE Wily Gonzalez [facility] CPT-84534 Level 3 Est. Patient 11:07:48 CDT Wily Gonzalez [facility] CPT-63668 Level 3 Est. Patient 11:24:24 CDT Wily Zhang [facility] CPT-36157 Level 3 Est. Patient 15:19:54 PRODUCT SAFETY ASSOCIATE Wily Gonzalez [facility] CPT-43463 Level 3 Est. Patient 10:04:45 CDT Wily Gonzalez [facility] CPT-85309 Level 3 Est. Patient 13:04:06 CDT Wily Gonzalez [facility] CPT-44246 Level 3 Est. Patient 12:23:04 CDT Wily Gonzalez [facility] CPT-87516 Level 3 Est. Patient 15:43:10 PRODUCT SAFETY ASSOCIATE Wily Gonzalez [facility] CPT-13146 Level 3 Est. Patient 16:10:54 CDT Wily Gonzalez [facility] CPT-27758 Level 3 Est. Patient 19:50:51 CDT iWly Zhang [facility] CPT-15239 Level 3 Est. Patient 12:02:30 PRODUCT SAFETY ASSOCIATE Wily Gonzalez [facility] CPT-13561 Level 3 Est. Patient 12:03:11 PRODUCT SAFETY ASSOCIATE Wliy Gonzalez [facility] CPT-47405 Level 3 Est. Patient 12:01:41 PRODUCT SAFETY ASSOCIATE Wily Gonzalez [facility] CPT-77092 Level 3 Est. Patient 11:51:24 PRODUCT SAFETY ASSOCIATE Wily Gonzalez [facility] CPT-26902 Level 3 Est. Patient 11:58:20 PRODUCT SAFETY ASSOCIATE Wily Gonzalez [facility] CPT-36760 Level 3 Est. Patient 08:31:36 PRODUCT SAFETY ASSOCIATE Wily Gonzalez [facility] CPT-35565 Level 3 Est. Patient 21:57:36 CDT Wily Gonzalez [facility] CPT-44999 Level 3 Est. Patient 10:49:58 CDT Esvin PAULA [facility] CPT-76938 Level 3 Est. Patient 11:22:52 CDT Esvin PAULA [facility] CPT-15600 Level 3 Est. Patient 13:49:41 CDT Esvin PAULA [facility] CPT-72338 Level 3 Est. Patient 11:54:53 CDT Esvin PAULA [facility] CPT-66083 Level 3 Est. Patient 09:07:11 CDT Esvin PAULA [facility] CPT-82994 Level 3 Est. Patient 13:52:47 CDT Esvin PAULA [facility] CPT-82751 Level 3 Est. Patient 11:26:46 CDT Esvin PAULA [facility] CPT-56491 Level 3 Est. Patient 10:25:00 PRODUCT SAFETY ASSOCIATE Esvin PAULA [facility] CPT-32358 Level 3 Est. Patient 11:39:11 PRODUCT SAFETY ASSOCIATE Esvin PAULA [facility] CPT-88936 Level 3 Est. Patient 13:24:24 PRODUCT SAFETY ASSOCIATE Esvin Tristan PA [facility] CPT-54934 Level 3 Est. Patient 10:26:13 PRODUCT SAFETY ASSOCIATE Esvin Crandall PA [facility] CPT-20656 Level 3 Est. Patient 10:21:21 CDT Esvin Tristan PA [facility] CPT-60224 Level 3 Est. Patient 10:26:30 CDT Esvin Hudson CHAI [facility] CPT-28879 Level 3 Est. Patient 09:16:37 CDT Esvin Crandall PA [facility]-47822 Level 3 Est. Patient 09:06:58 CDT Esvin Crandall PA [facility] CPT-65732 Level 3 Est. Patient 10:05:29 CDT Esvin Crandall PA [facility] CPT-21115 Level 3 Est. Patient 10:38:45 CDT Esvin Crandall PA [facility] CPT-42878 Level 3 Est. Patient 10:09:45 CDT Esvin Tristan PA [facility] CPT-53541 Level 3 Est. Patient 09:26:37 CDT Esvin Crandall PA [facility] CPT-88384 Level 3 Est. Patient 10:34:42 PRODUCT SAFETY ASSOCIATE Esvin Tristan CHAI [facility] CPT-01711 Level 3 Est. Patient 10:45:47 PRODUCT SAFETY ASSOCIATE Esvin Tristan PA [facility] CPT-15858 Level 3 Est. Patient 10:45:22 PRODUCT SAFETY ASSOCIATE Esvin Tristan PA [facility]-88923 Level 3 Est. Patient 14:18:30 PRODUCT SAFETY ASSOCIATE Esvin PAULA [facility] CPT-16079 Level 3 Est. Patient 13:53:29 PRODUCT SAFETY ASSOCIATE Esvin PAULA [facility] CPT-63200 Level 3 Est. Patient 10:34:11 CDT Esvin Hudson [facility] Procedures Code Procedure Name Date Entry Date Standard Description CPT-65514 LS spine AP and Lat - XRAY USE ONLY 10:07:43 PRODUCT SAFETY ASSOCIATE 10/26 CPT-47642 Venipuncture Draw Fee 09:51:16 PRODUCT SAFETY ASSOCIATE CPT-57949 Smoking Cessation counseling 09:39:47 PRODUCT SAFETY ASSOCIATE CPT-G0438 Initial Annual Wellness Exam 09:37:28 PRODUCT SAFETY ASSOCIATE CPT-44866 Venipuncture Draw Fee 09:26:55 CDT CPT-30968 Venipuncture Draw Fee 11:55:52 CDT CPT-02432 Spec Collection and Handling Fee 09:16:37 CDT CPT-38465 Venipuncture Draw Fee 09:16:37 CDT
--- OUTSIDE RECORDS SUMMARY | 2018-02-26 15:43 | XMS REPORT | Clinical Summary ---
Author Author Admin, E Organization [employer] Address Unknown Phone Unavailable Allergies, Adverse Reactions, [...] Wily Gonzalez DO ANEMIA ICD-285.9 Inactive Wily iVcente Gonzalez DO Tinea corporis ICD-110.5 Inactive Wily [...] TABS 1 twice a day VARENICLINE TARTRATE 19803262648 Active Wily Gonzalez DO Active TRIAMCINOLONE ACETONIDE 0.1 % CREA Apply to affected area 3 times daily for up to 2 weeks TRIAMCINOLONE ACETONIDE 64250531698 Active Wily Gonzalez DO Active [id number] 167-83-8 MG TABS 1 tab po daily [id number] 18191698422 No Longer Active Wily Gonzalez DO Active NYSTATIN 953874 UNIT/GM CREA apply to rash TID PRN NYSTATIN 88984223967 No Longer Active Wily Gonzalez DO Active POLY-IRON 150 150 MG CAPS 1 tab po bid POLYSACCHARIDE IRON COMPLEX 72205693036 No Longer Active Wily Gonzalez DO Active FLONASE ALLERGY RELIEF 50 MCG/ACT NASAL SUSP 2 sprays each nostril every day FLUTICASONE PROPIONATE 12825410270 Active Jodi Lucas APRN Active CLEMASTINE FUMARATE 1.34 MG ORAL TABS 1 tab PO BID CLEMASTINE FUMARATE 42132806661 No Longer Active Wily Gonzalez DO Active FLOMAX 0.4 MG CAPS 1 capsule in the evening for night time urination. TAMSULOSIN HCL 12961814489 No Longer Active Wily Gonzalez DO Active PROTONIX 40 MG TBEC 1 po daily PANTOPRAZOLE SODIUM 87821495473 Active Agnieszka Yeung Active HYDROXYZINE HCL 25 MG TAB 1 two times a day as needed for anxiety HYDROXYZINE HCL 36797439856 No Longer Active Wily Gonzalez DO Active ANUSOL-HC 25 MG SUPPOSITORY 1 rectally every 12 hours for irritation HYDROCORTISONE NAEL (RECTAL) 87052611085 No Longer Active Wily Gonzalez DO Active HYDROXYZINE HCL 25 MG TABS Take one (1) tablet by mouth twice a day HYDROXYZINE HCL 88440271365 No Longer Active Wily Gonzalez DO Active ZIAC 2.5-6.25 MG TAB 1 tablet daily for high blood pressure 10/27 BISOPROLOL-HCTZ 63646034690 No Longer Active Wily Gonzalez DO Active ZIAC 2.5-6.25 MG TAB 1 tablet every morning for high blood pressure BISOPROLOL-HCTZ 83883812904 No Longer Active Wily Gonzalez DO Active AMOXICILLIN 500 MG CAPS Take one (1) tablet by mouth three times a day 05/05 AMOXICILLIN 55150122866 No Longer Active Wily Gonzalez DO Active MORPHINE SULFATE ER 100 MG CR-TABS Take one (1) tablet by mouth twice a day MORPHINE SULFATE 81697435807 No Longer Active Wily Gonzalez DO Active MORPHINE SULFATE ER 100 MG [id number] 1 capsule twice daily for chronic pain MORPHINE SULFATE 02300728084 Active Wily Gonzalez DO Active CIALIS 10 MG TABS 1 every 72 hours as needed TADALAFIL 90793014346 No Longer Active Esvin PAULA Active FLONASE 50 MCG/ACT SUSP 2 SPRAY EACH NARE DAILY FLUTICASONE PROPIONATE 31359614245 No Longer Active Esvin PAULA Active CYCLOBENZAPRINE HCL 10 MG TABS Take one (1) tablet by mouth three times a day CYCLOBENZAPRINE HCL 63008077803 Active Agnieszka Yeung Active OPANA ER (CRUSH RESISTANT) 40 MG [id number] Take one (1) tablet by mouth twice a day OXYMORPHONE HCL 93085386458 No Longer Active Esvin PAULA Active PROAIR HFA 108 (90 BASE) MCG/ACT AERS 2 puffs every four hours as needed ALBUTEROL SULFATE 28074753449 No Longer Active Esvin PAULA Active CLEARLAX POWD 17gm q day prn constipation POLYETHYLENE GLYCOL 3350 37553034271 Active Wily Gonzalez DO Active MORPHINE SULFATE ER 100 MG [id number] Take one (1) tablet by mouth twice a day MORPHINE SULFATE 80507634774 No Longer Active Esvin PAULA Active FLEXERIL 10 MG TAB 1 tablet by mouth 3 times daily as needed CYCLOBENZAPRINE HCL 42880729866 No Longer Active Esvin PAULA Active CELEBREX 200 MG CAPS 1 tablet by mouth twice daily with meals CELECOXIB 62729606368 No Longer Active Esvin PAULA Active NEXIUM 40 MG CPDR 1 cap daily ESOMEPRAZOLE MAGNESIUM 23638083694 No Longer Active Esvin PAULA Active MOBIC 15 MG TABS 1 tab daily MELOXICAM 00251114062 No Longer Active Esvin PAULA Active LISINOPRIL 20 MG TABS Take 1 tablet by mouth daily LISINOPRIL 16636530708 No Longer Active Esvin PAULA Active DICLOFENAC SODIUM 50 MG TBEC 1 tablet by mouth four times daily DICLOFENAC SODIUM 07080424041 No Longer Active Paula Cooney RN Active VERAMYST 27.5 MCG/SPRAY SUSP 2 spray each nare daily FLUTICASONE FUROATE 98904188816 No Longer Active Megan Vargas RN Active ENDOCET 10-325 MG TABS Take one (1) tablet by mouth three times a day OXYCODONE-ACETAMINOPHEN 92907513608 Active Wily Gonzalez DO Active ALPRAZOLAM 2 MG TABS Take one (1) tablet by mouth three times a day ALPRAZOLAM 68471542610 Active Wily Gonzalez DO Active NEXIUM 40 MG CPDR 1 cap by mouth daily ESOMEPRAZOLE MAGNESIUM 18612073029 No Longer Active Esvin PAULA Active ALPRAZOLAM 2 MG TABS 1 tablet by mouth three times daily as needed ALPRAZOLAM 42761167576 No Longer Active Esvin PAULA Active HYDROXYZINE HCL 25 MG TAB take 1 every 4-6 hours as needed 07/01 HYDROXYZINE HCL 83389681740 No Longer Active Esvin PAULA Active ENDOCET 10-325 MG TABS 1 by mouth twice a day OXYCODONE-ACETAMINOPHEN 68847931845 No Longer Active Esvin PAULA Active MS CONTIN 100 MG [id number] 1 by mouth twice a day MORPHINE SULFATE 89816316861 No Longer Active Esvin PAULA Active SUDAFED 30 MG TAB 1-2 every 4-6 hours as needed PSEUDOEPHEDRINE HCL 00264249628 Active Marylou Melissa RPT,RMA Active VERAMYST 27.5 MCG/SPRAY SUSP 2 spray each nare daily VERAMYST 27.5 MCG/SPRAY SUSP FLUTICASONE FUROATE Inactive DICLOFENAC SODIUM 50 MG TBEC 1 tablet by mouth four times daily DICLOFENAC SODIUM 50 MG TBEC 187206 DICLOFENAC SODIUM Inactive LISINOPRIL 20 MG TABS Take 1 tablet by mouth daily LISINOPRIL 20 MG TABS 681821 LISINOPRIL Inactive MOBIC 15 MG TABS 1 tab daily MOBIC 15 MG TABS 196228 MELOXICAM Inactive NEXIUM 40 MG CPDR 1 cap daily NEXIUM 40 MG CPDR 129484 ESOMEPRAZOLE MAGNESIUM Inactive CELEBREX 200 MG CAPS 1 tablet by mouth twice daily with meals CELEBREX 200 MG CAPS 632068 CELECOXIB Inactive FLEXERIL 10 MG TAB 1 [...] a day 05/05 AMOXICILLIN 500 MG CAPS 963040 AMOXICILLIN Inactive ZIAC 2.5-6.25 MG TAB 1 tablet every morning for high blood pressure ZIAC 2.5-6.25 MG TAB 415146 BISOPROLOL-HCTZ Inactive ZIAC 2.5-6.25 MG TAB 1 tablet daily for high blood pressure 10/27 ZIAC 2.5-6.25 MG TAB 306929 BISOPROLOL-HCTZ Inactive HYDROXYZINE HCL 25 MG TABS Take one (1) tablet by mouth twice a day HYDROXYZINE HCL 25 MG TABS 234298 HYDROXYZINE HCL Inactive ANUSOL-HC 25 MG SUPPOSITORY 1 rectally every 12 hours for irritation ANUSOL-HC 25 MG SUPPOSITORY 6716794 HYDROCORTISONE NAEL (RECTAL ) Inactive HYDROXYZINE HCL 25 MG TAB 1 two times a day as needed for anxiety HYDROXYZINE HCL 25 MG TAB 121334 HYDROXYZINE HCL Inactive FLOMAX 0.4 MG CAPS 1 capsule in the evening for night time urination. FLOMAX 0.4 MG CAPS 290022 TAMSULOSIN HCL Inactive CLEMASTINE FUMARATE 1.34 MG ORAL TABS 1 tab PO BID CLEMASTINE FUMARATE 1.34 MG ORAL TABS 253576 CLEMASTINE FUMARATE Inactive POLY-IRON 150 150 MG CAPS 1 tab po bid POLY-IRON 150 150 MG CAPS POLYSACCHARIDE IRON COMPLEX Inactive NYSTATIN 383533 UNIT/GM CREA apply to rash TID PRN NYSTATIN 135091 UNIT/GM CREA 073909 NYSTATIN Inactive AUEIAIE-KKRJSHNDS-CXML 167-83-8 MG TABS 1 tab po daily [id number] 167-83-8 MG TABS [id number]-WZRH Inactive MS CONTIN 100 MG [id number]-FNE 1 by mouth twice a day MS CONTIN 100 MG [id number] MORPHINE SULFATE Inactive ENDOCET 10-325 MG TABS 1 by mouth twice a day ENDOCET 10-325 MG TABS 8619971 OXYCODONE-ACETAMINOPHEN Inactive HYDROXYZINE HCL 25 MG TAB take 1 every 4-6 hours as needed 07/01 HYDROXYZINE HCL 25 MG TAB 520381 HYDROXYZINE HCL Inactive ALPRAZOLAM 2 MG TABS 1 tablet by mouth three times daily as needed ALPRAZOLAM 2 MG TABS 319959 ALPRAZOLAM Inactive NEXIUM 40 MG CPDR 1 cap by mouth daily NEXIUM 40 MG CPDR 534871 ESOMEPRAZOLE MAGNESIUM Inactive Advance Directives Directive Description [...] ... - Chemistry sodium, serum 140 mmol/L 030-832 1813/03/25 carbon dioxide, venous blood 31.3 mmol/L 21.0-32.0 potassium, serum 4.0 mmol/L 3.5-5.2 chloride, serum 101 mmol/L 98-107 blood glucose 96 mg/dL 65-110 urea nitrogen, blood 7 mg/dL 7-18 creatinine, serum 0.94 mg/dL 0.55-1.30 alanine aminotransferase (SGPT), serum 23 U/L 12-78 aspartate aminotransferase (SGOT), serum 21 U/L 15-37 calcium, serum 8.9 mg/dL 8.5-10.1 bilirubin, serum, total 0.30 mg/dL 0.00-1.00 cholesterol, serum 169 mg/dL 529-072 6335/03/25 triglyceride, serum, fasting 143 mg/dL 30-200 HDL [...] 5.0-8.5 Encounters Code Encounter Date Provider Facility CPT-95446 Level 3 Est. Patient 09:51:37 SECURITY SOFTWARE ENGINEER Wily Zhang [facility] CPT-56660 Level 3 Est. Patient 11:07:48 CDT Wily Zhang [facility] CPT-17273 Level 3 Est. Patient 11:24:24 CDT Wily Zhang [facility] CPT-62032 Level 3 Est. Patient 15:19:54 SECURITY SOFTWARE ENGINEER Wily Zhang [facility] CPT-10445 Level 3 Est. Patient 10:04:45 CDT Wily Zhang [facility] CPT-05316 Level 3 Est. Patient 13:04:06 CDT Wily Zhang [facility] CPT-56782 Level 3 Est. Patient 12:23:04 CDT Wily Zhang [facility] CPT-89766 Level 3 Est. Patient 15:43:10 SECURITY SOFTWARE ENGINEER Wily Zhang [facility] CPT-59271 Level 3 Est. Patient 16:10:54 CDT Wily Gonzalez [facility] CPT-57816 Level 3 Est. Patient 19:50:51 CDT Wily Gonzalez [facility] CPT-36966 Level 3 Est. Patient 12:02:30 SECURITY SOFTWARE ENGINEER Wily Gonzalez [facility] CPT-79067 Level 3 Est. Patient 12:03:11 SECURITY SOFTWARE ENGINEER Wily Gonzalez [facility] CPT-84685 Level 3 Est. Patient 12:01:41 SECURITY SOFTWARE ENGINEER Wily Gonzalez [facility] CPT-14175 Level 3 Est. Patient 11:51:24 SECURITY SOFTWARE ENGINEER Wily Gonzalez [facility] CPT-59520 Level 3 Est. Patient 11:58:20 SECURITY SOFTWARE ENGINEER Wily Gonzalez [facility] CPT-08718 Level 3 Est. Patient 08:31:36 SECURITY SOFTWARE ENGINEER Wily Gonzalez [facility] CPT-13829 Level 3 Est. Patient 21:57:36 CDT Wily Gonzalez [facility] CPT-92401 Level 3 Est. Patient 10:49:58 CDT Esvin Hudson [facility] CPT-68034 Level 3 Est. Patient 11:22:52 CDT Esvin Hudson [facility] CPT-01290 Level 3 Est. Patient 13:49:41 CDT Esvin Hudson [facility] CPT-13292 Level 3 Est. Patient 11:54:53 CDT Esvin PAULA [facility] CPT-12059 Level 3 Est. Patient 09:07:11 CDT Esvin Hudson [facility] CPT-55845 Level 3 Est. Patient 13:52:47 CDT Esvin Hudson [facility] CPT-47516 Level 3 Est. Patient 11:26:46 CDT Esvin PAULA [facility] CPT-64522 Level 3 Est. Patient 10:25:00 SECURITY SOFTWARE ENGINEER Esvin Hudson CHAI [facility] CPT-51093 Level 3 Est. Patient 11:39:11 SECURITY SOFTWARE ENGINEER Esvin Hudson CHAI [facility] CPT-98972 Level 3 Est. Patient 13:24:24 SECURITY SOFTWARE ENGINEER Esvin Hudson CHAI [facility] CPT-32345 Level 3 Est. Patient 10:26:13 SECURITY SOFTWARE ENGINEER Esvin Hudson [facility] CPT-83439 Level 3 Est. Patient 10:21:21 CDT Esvin Concrete PA [facility] CPT-14223 Level 3 Est. Patient 10:26:30 CDT Esvin Tristan PA [facility] CPT-71872 Level 3 Est. Patient 09:16:37 CDT Esvin Hudson CHAI [facility] CPT-28395 Level 3 Est. Patient 09:06:58 CDT Esvin Hudson CHAI [facility] CPT-44497 Level 3 Est. Patient 10:05:29 CDT Esvin Tristan PA [facility] CPT-83811 Level 3 Est. Patient 10:38:45 CDT Esvin Tristan CH[facility] CPT-89615 Level 3 Est. Patient 10:09:45 CDT Esvin Hudson CHAI [facility] CPT-94072 Level 3 Est. Patient 09:26:37 CDT Esvin Concrete PA [facility] CPT-58560 Level 3 Est. Patient 10:34:42 SECURITY SOFTWARE ENGINEER Esvin Tristan CHAI [facility] CPT-37996 Level 3 Est. Patient 10:45:47 SECURITY SOFTWARE ENGINEER Esvin Tristan PA [facility] CPT-84928 Level 3 Est. Patient 10:45:22 SECURITY SOFTWARE ENGINEER Esvin Hudson [facility] CPT-42565 Level 3 Est. Patient 14:18:30 SECURITY SOFTWARE ENGINEER Esvin Hudson [facility] CPT-48520 Level 3 Est. Patient 13:53:29 SECURITY SOFTWARE ENGINEER Esvin Concrete [facility] CPT-63981 Level 3 Est. Patient 10:34:11 CDT Esvin Concrete [facility] Procedures Code Procedure Name Date Entry Date Standard Description CPT-32987 Bone Density - XRAY USE ONLY 11:29:32 CDT CPT-50895 LS spine AP and Lat - XRAY USE ONLY 10:07:43 SECURITY SOFTWARE ENGINEER 10/26 CPT-51611 Venipuncture Draw Fee 09:51:16 SECURITY SOFTWARE ENGINEER CPT-03263 Smoking Cessation counseling 09:39:47 SECURITY SOFTWARE ENGINEER CPT-G0438 Initial Annual Wellness Exam 09:37:28 SECURITY SOFTWARE ENGINEER CPT-79574 Venipuncture Draw Fee 09:26:55 CDT CPT-62520 Venipuncture Draw Fee 11:55:52 CDT CPT-37993 Spec Collection and Handling Fee 09:16:37 CDT CPT-88049 Venipuncture Draw Fee 09:16:37 CDT
--- OUTSIDE RECORDS SUMMARY | 2018-02-26 15:44 | XMS REPORT | Clinical Summary ---
Author Author Admin, E Organization [facility] Address Unknown Phone Unavailable Allergies, Adverse Reactions, [...] Start Date Stop Date Generic Name [facility] Status Provider Patient Instruction CHANTIX 1 MG TABS 1 twice a day VARENICLINE TARTRATE 65664045623 No Longer Active Wily Gonzalez DO Active RAUL-MAG 500-250 MG ORAL TABS Take one by mouth daily CALCIUM- MAGNESIUM 33495506449 Active Wily Gonzalez DO Active FOSAMAX 70 MG TABS 1 po qweek. Take 30min prior to first food/drink. Avoid lying down x 1 hour. ALENDRONATE SODIUM 37694040281 Active Rose Bang Active CALCIUM 600 MG ORAL TABS 1 po q day CALCIUM 69306531692 Active Rose Bang Active TRIAMCINOLONE ACETONIDE 0.1 % CREA Apply to affected area 3 times daily for up to 2 weeks TRIAMCINOLONE ACETONIDE 51052400826 Active Wily Gonzalez DO Active [id number]-QHPLSERUC-HJVQ 167-83-8 MG TABS 1 tab po daily [id number] 09697390458 No Longer Active Wily Gonzalez DO Active NYSTATIN 641854 UNIT/GM CREA apply to rash TID PRN NYSTATIN 65845656766 No Longer Active Wily Gonzalez DO Active POLY-IRON 150 150 MG CAPS 1 tab po bid POLYSACCHARIDE IRON COMPLEX 56012655323 No Longer Active Wily Gonzalez DO Active FLONASE ALLERGY RELIEF 50 MCG/ACT NASAL SUSP 2 sprays each nostril every day FLUTICASONE PROPIONATE 57659463563 Active Jodi Lucas APRN Active CLEMASTINE FUMARATE 1.34 MG ORAL TABS 1 tab PO BID CLEMASTINE FUMARATE 01589472501 No Longer Active Wily Gonzalez DO Active FLOMAX 0.4 MG CAPS 1 capsule in the evening for night time urination. TAMSULOSIN HCL 54362360997 No Longer Active Wily Gonzalez DO Active PROTONIX 40 MG TBEC 1 po daily PANTOPRAZOLE SODIUM 36116882937 Active Agnieszka Yeung Active HYDROXYZINE HCL 25 MG TAB 1 two times a day as needed for anxiety HYDROXYZINE HCL 36145400356 No Longer Active Wily Gonzalez DO Active ANUSOL-HC 25 MG SUPPOSITORY 1 rectally every 12 hours for irritation HYDROCORTISONE NAEL (RECTAL) 07038286656 No Longer Active Wily Gonzalez DO Active HYDROXYZINE HCL 25 MG TABS Take one (1) tablet by mouth twice a day HYDROXYZINE HCL 30705259428 No Longer Active Wily Gonzalez DO Active ZIAC 2.5-6.25 MG TAB 1 tablet daily for high blood pressure 10/27 BISOPROLOL-HCTZ 25820494444 No Longer Active Wily Gonzalez DO Active ZIAC 2.5-6.25 MG TAB 1 tablet every morning for high blood pressure BISOPROLOL-HCTZ 69832709607 No Longer Active Wily Gonzalez DO Active AMOXICILLIN 500 MG CAPS Take one (1) tablet by mouth three times a day 05/05 AMOXICILLIN 33780239687 No Longer Active Wily Gonzalez DO Active MORPHINE SULFATE ER 100 MG CR-TABS Take one (1) tablet by mouth twice a day MORPHINE SULFATE 38996038527 No Longer Active Wily Gonzalez DO Active MORPHINE SULFATE ER 100 MG QE10H-IRP 1 capsule twice daily for chronic pain MORPHINE SULFATE 81144137491 Active Lisa Berkowitz Active CIALIS 10 MG TABS 1 every 72 hours as needed TADALAFIL 88392756634 No Longer Active Esvin PAULA Active FLONASE 50 MCG/ACT SUSP 2 SPRAY EACH NARE DAILY FLUTICASONE PROPIONATE 67016485066 No Longer Active Esvin PAULA Active CYCLOBENZAPRINE HCL 10 MG TABS Take one (1) tablet by mouth three times a day CYCLOBENZAPRINE HCL 42167184054 Active Lisa Berkowitz Active OPANA ER (CRUSH RESISTANT) 40 MG CY26Y-SIP Take one (1) tablet by mouth twice a day OXYMORPHONE HCL 57317669200 No Longer Active Esivn PAULA Active PROAIR HFA 108 (90 BASE) MCG/ACT AERS 2 puffs every four hours as needed ALBUTEROL SULFATE 71894127094 No Longer Active Esvin PAULA Active CLEARLAX POWD 17gm q day prn constipation POLYETHYLENE GLYCOL 3350 92862074062 Active Wily Gonzalez DO Active MORPHINE SULFATE ER 100 MG AR44U-IVR Take one (1) tablet by mouth twice a day MORPHINE SULFATE 98307187572 No Longer Active Esvin PAULA Active FLEXERIL 10 MG TAB 1 tablet by mouth 3 times daily as needed CYCLOBENZAPRINE HCL 49113397743 No Longer Active Esvin PAULA Active CELEBREX 200 MG CAPS 1 tablet by mouth twice daily with meals CELECOXIB 27081212505 No Longer Active Esvin PAULA Active NEXIUM 40 MG CPDR 1 cap daily ESOMEPRAZOLE MAGNESIUM 98377471032 No Longer Active Esvin PAULA Active MOBIC 15 MG TABS 1 tab daily MELOXICAM 71920604992 No Longer Active Esvin PAULA Active LISINOPRIL 20 MG TABS Take 1 tablet by mouth daily LISINOPRIL 59715503598 No Longer Active Esvin PAULA Active DICLOFENAC SODIUM 50 MG TBEC 1 tablet by mouth four times daily DICLOFENAC SODIUM 15944857701 No Longer Active Paula Cooney RN Active VERAMYST 27.5 MCG/SPRAY SUSP 2 spray each nare daily FLUTICASONE FUROATE 57271008850 No Longer Active Megan Vargas RN Active ENDOCET 10-325 MG TABS Take one (1) tablet by mouth three times a day OXYCODONE-ACETAMINOPHEN 43946568110 Active Lisa Berkowitz Active ALPRAZOLAM 2 MG TABS Take one (1) tablet by mouth three times a day ALPRAZOLAM 73355516453 Active Lisa Berkowitz Active NEXIUM 40 MG CPDR 1 cap by mouth daily ESOMEPRAZOLE MAGNESIUM 62139552073 No Longer Active Esvin PAULA Active ALPRAZOLAM 2 MG TABS 1 tablet by mouth three times daily as needed ALPRAZOLAM 63605584700 No Longer Active Esvin PAULA Active HYDROXYZINE HCL 25 MG TAB take 1 every 4-6 hours as needed 07/01 HYDROXYZINE HCL 53252909272 No Longer Active Esvin PAULA Active ENDOCET 10-325 MG TABS 1 by mouth twice a day OXYCODONE-ACETAMINOPHEN 06333322295 No Longer Active Esvin PAULA Active MS CONTIN 100 MG [id number]-TVY 1 by mouth twice a day MORPHINE SULFATE 44983094061 No Longer Active Esvin PAULA Active SUDAFED 30 MG TAB 1-2 every 4-6 hours as needed PSEUDOEPHEDRINE HCL 17240410880 Active Rose Bang Active VERAMYST 27.5 MCG/SPRAY SUSP 2 spray each nare daily VERAMYST 27.5 MCG/SPRAY SUSP FLUTICASONE FUROATE Inactive DICLOFENAC SODIUM 50 MG TBEC 1 tablet by mouth four times daily DICLOFENAC SODIUM 50 MG TBEC 524634 DICLOFENAC SODIUM Inactive LISINOPRIL 20 MG TABS Take 1 tablet by mouth daily LISINOPRIL 20 MG TABS 574508 LISINOPRIL Inactive MOBIC 15 MG TABS 1 tab daily MOBIC 15 MG TABS 801219 MELOXICAM Inactive NEXIUM 40 MG CPDR 1 cap daily NEXIUM 40 MG CPDR 875670 ESOMEPRAZOLE MAGNESIUM Inactive CELEBREX 200 MG CAPS 1 tablet by mouth twice daily with meals CELEBREX 200 MG CAPS 738305 CELECOXIB Inactive FLEXERIL 10 MG TAB 1 tablet by mouth 3 times daily as needed FLEXERIL 10 MG TAB CYCLOBENZAPRINE HCL Inactive PROAIR HFA 108 (90 BASE) MCG/ACT AERS 2 puffs every four hours as needed PROAIR HFA 108 (90 BASE) MCG/ACT AERS ALBUTEROL SULFATE Inactive FLONASE 50 MCG/ACT SUSP 2 SPRAY EACH NARE DAILY FLONASE 50 MCG/ACT SUSP 4551728 FLUTICASONE PROPIONATE Inactive CIALIS 10 MG TABS 1 every 72 hours as needed CIALIS 10 MG TABS TADALAFIL Inactive MORPHINE SULFATE ER 100 MG CR-TABS Take one (1) tablet by mouth twice a day MORPHINE SULFATE ER 100 MG CR-TABS MORPHINE SULFATE Inactive AMOXICILLIN 500 MG CAPS Take one (1) tablet by mouth three times a day 05/05 AMOXICILLIN 500 MG CAPS 981011 AMOXICILLIN Inactive ZIAC 2.5-6.25 MG TAB 1 tablet every morning for high blood pressure ZIAC 2.5-6.25 MG TAB 634594 BISOPROLOL-HCTZ Inactive ZIAC 2.5-6.25 MG TAB 1 tablet daily for high blood pressure 10/27 ZIAC 2.5-6.25 MG TAB 100374 BISOPROLOL-HCTZ Inactive HYDROXYZINE HCL 25 MG TABS Take one (1) tablet by mouth twice a day HYDROXYZINE HCL 25 MG TABS 527392 HYDROXYZINE HCL Inactive ANUSOL-HC 25 MG SUPPOSITORY 1 rectally every 12 hours for irritation ANUSOL-HC 25 MG SUPPOSITORY 2590963 HYDROCORTISONE NAEL (RECTAL ) Inactive HYDROXYZINE HCL 25 MG TAB 1 two times a day as needed for anxiety HYDROXYZINE HCL 25 MG TAB 519151 HYDROXYZINE HCL Inactive FLOMAX 0.4 MG CAPS 1 capsule in the evening for night time urination. FLOMAX 0.4 MG CAPS 118106 TAMSULOSIN HCL Inactive CLEMASTINE FUMARATE 1.34 MG ORAL TABS 1 tab PO BID CLEMASTINE FUMARATE 1.34 MG ORAL TABS 977644 CLEMASTINE FUMARATE Inactive POLY-IRON 150 150 MG CAPS 1 tab po bid POLY-IRON 150 150 MG CAPS POLYSACCHARIDE IRON COMPLEX Inactive NYSTATIN 332195 UNIT/GM CREA apply to rash TID PRN NYSTATIN 168597 UNIT/GM CREA 910481 NYSTATIN Inactive SNOZPVD-NRTESPNJK-AMGJ 167-83-8 MG TABS 1 tab po daily YIBFNVB-RUSCKBVTJ-RDOD 167-83-8 MG TABS TIQVITT-TTVZSVKWS-AOKR Inactive CHANTIX 1 MG TABS 1 twice a day CHANTIX 1 MG TABS VARENICLINE TARTRATE Inactive MS CONTIN 100 MG AX90G-BDJ 1 by mouth twice a day MS CONTIN 100 MG LB81Q-DVQ MORPHINE SULFATE Inactive ENDOCET 10-325 MG TABS 1 by mouth twice a day ENDOCET 10-325 MG TABS 7896289 OXYCODONE-ACETAMINOPHEN Inactive HYDROXYZINE HCL 25 MG TAB take 1 every 4-6 hours as needed 07/01 HYDROXYZINE HCL 25 MG TAB 484121 HYDROXYZINE HCL Inactive ALPRAZOLAM 2 MG TABS 1 tablet by mouth three times daily as needed ALPRAZOLAM 2 MG TABS 618202 ALPRAZOLAM Inactive NEXIUM 40 MG CPDR 1 cap by mouth daily NEXIUM 40 MG CPDR 113346 ESOMEPRAZOLE MAGNESIUM Inactive Advance Directives Directive Description [...] Measured Encounters Code Encounter Date Provider Facility CPT-58910 Level 4 Est. Patient 10:10:03 CDT Wily Zhang [facility] CPT-27502 Level 3 Est. Patient 14:25:57 CDT Wily Zhang [facility] CPT-49695 Level 3 Est. Patient 09:51:37 SKIN CARVER Wily Gonzalez [facility] CPT-19125 Level 3 Est. Patient 11:07:48 CDT Wily Zhang [facility] CPT-70441 Level 3 Est. Patient 11:24:24 CDT Wily Gonzalez [facility] CPT-45282 Level 3 Est. Patient 15:19:54 SKIN CARVER Wily Zhang [facility] CPT-63696 Level 3 Est. Patient 10:04:45 CDT Wily Gonzalez [facility] CPT-67674 Level 3 Est. Patient 13:04:06 CDT Wily Gonzalez [facility] CPT-53200 Level 3 Est. Patient 12:23:04 CDT Wily Gonzalez [facility] CPT-31186 Level 3 Est. Patient 15:43:10 SKIN CARVER Wily Gonzalez [facility] CPT-04164 Level 3 Est. Patient 16:10:54 CDT Wily Gonzalez [facility] CPT-09768 Level 3 Est. Patient 19:50:51 CDT Wily Gonzalez [facility] CPT-51181 Level 3 Est. Patient 12:02:30 SKIN CARVER Wily Gonzalez [facility] CPT-78369 Level 3 Est. Patient 12:03:11 SKIN CARVER Wily Gonzalez [facility] CPT-38316 Level 3 Est. Patient 12:01:41 SKIN CARVER Wily Gonzalez [facility] CPT-24760 Level 3 Est. Patient 11:51:24 SKIN CARVER Wily Gonzaelz [facility] CPT-94163 Level 3 Est. Patient 11:58:20 SKIN CARVER Wily Gonzalez [facility] CPT-90660 Level 3 Est. Patient 08:31:36 SKIN CARVER Wily Gonzalez [facility] CPT-10533 Level 3 Est. Patient 21:57:36 CDT Wily Gonzalez [facility] CPT-66612 Level 3 Est. Patient 10:49:58 CDT Esvin PAULA [facility] CPT-81874 Level 3 Est. Patient 11:22:52 CDT Esvin PAULA [facility] CPT-33040 Level 3 Est. Patient 13:49:41 CDT Esvin PAULA [facility] CPT-06645 Level 3 Est. Patient 11:54:53 CDT Esvin Pampa PA [facility] CPT-24930 Level 3 Est. Patient 09:07:11 CDT Esvin Pampa PA [facility] CPT-16699 Level 3 Est. Patient 13:52:47 CDT Esvin Tristan PA [facility] CPT-07396 Level 3 Est. Patient 11:26:46 CDT Esvin Hudson [facility] CPT-82160 Level 3 Est. Patient 10:25:00 SKIN CARVER Esvin Tristan PA [facility] CPT-52807 Level 3 Est. Patient 11:39:11 SKIN CARVER Esvin PAULA [facility] CPT-97003 Level 3 Est. Patient 13:24:24 SKIN CARVER Esvin Tristan PA [facility] CPT-38160 Level 3 Est. Patient 10:26:13 SKIN CARVER Esvin Pampa PA [facility] CPT-27046 Level 3 Est. Patient 10:21:21 CDT Esvin Pampa PA [facility] CPT-22852 Level 3 Est. Patient 10:26:30 CDT Esvin Tristan PA [facility] CPT-92944 Level 3 Est. Patient 09:16:37 CDT Esvin Tristan PA [facility]-39845 Level 3 Est. Patient 09:06:58 CDT Esvin Tristan PA [facility] CPT-73826 Level 3 Est. Patient 10:05:29 CDT Esvin PAULA [facility] CPT-77920 Level 3 Est. Patient 10:38:45 CDT Esvin PAULA [facility] CPT-13080 Level 3 Est. Patient 10:09:45 CDT Esvin Pampa [facility] CPT-21808 Level 3 Est. Patient 09:26:37 CDT Esvin Hudson [facility] CPT-97867 Level 3 Est. Patient 10:34:42 SKIN CARVER Esvin Hudson [facility] CPT-98780 Level 3 Est. Patient 10:45:47 SKIN CARVER Esvin Tristan [facility] CPT-83867 Level 3 Est. Patient 10:45:22 SKIN CARVER Esvin Pampa [facility] CPT-33246 Level 3 Est. Patient 14:18:30 SKIN CARVER Esvin [facility] CPT-39192 Level 3 Est. Patient 13:53:29 SKIN CARVER Esvin [facility] CPT-79157 Level 3 Est. Patient 10:34:11 CDT Esvin [facility] Procedures Code Procedure Name Date Entry Date Standard Description CPT-30279 Smoking Cessation counseling 10:10:03 CDT CPT-06854 Smoking Cessation counseling 14:25:57 CDT CPT-34844 Bone Density - XRAY USE ONLY 11:29:32 CDT CPT-61993 LS spine AP and Lat - XRAY USE ONLY 10:07:43 SKIN CARVER 10/26 CPT-08161 Venipuncture Draw Fee 09:51:16 SKIN CARVER CPT-28816 Smoking Cessation counseling 09:39:47 SKIN CARVER CPT-G0438 Initial Annual Wellness Exam 09:37:28 SKIN CARVER CPT-63422 Venipuncture Draw Fee 09:26:55 CDT CPT-37867 Venipuncture Draw Fee 11:55:52 CDT CPT-71157 Spec Collection and Handling Fee 09:16:37 CDT CPT-60721 Venipuncture Draw Fee 09:16:37 CDT
--- OUTSIDE RECORDS SUMMARY | 2018-02-26 15:45 | XMS REPORT | Clinical Summary ---
Author Author Admin, E Organization [facility] Address Unknown Phone Unavailable Allergies, Adverse [...] TABS 1 tab PO BID CLEMASTINE FUMARATE 49462103454 No Longer Active Wily Gonzalez DO Active FLOMAX 0.4 MG CAPS 1 capsule in the evening for night time urination. TAMSULOSIN HCL 69518641243 No Longer Active Wily Gonzalez DO Active PROTONIX 40 MG TBEC 1 po daily PANTOPRAZOLE SODIUM 06465447405 Active Wily Gonzalez DO Active HYDROXYZINE HCL 25 MG TAB 1 two times a day as needed for anxiety HYDROXYZINE HCL 26750560736 No Longer Active Wily Gonzalez DO Active ANUSOL-HC 25 MG SUPPOSITORY 1 rectally every 12 hours for irritation HYDROCORTISONE NAEL (RECTAL) 89781333706 No Longer Active Wily Gonzalez DO Active HYDROXYZINE HCL 25 MG TABS Take one (1) tablet by mouth twice a day HYDROXYZINE HCL 96738431561 No Longer Active Wily Gonzalez DO Active ZIAC 2.5-6.25 MG TAB 1 tablet daily for high blood pressure 10/27 BISOPROLOL-HCTZ 90146471406 No Longer Active Wily Gonzalez DO Active [id number] 167-83-8 MG TABS 1 tab po daily CALCIUM -MAGNESIUM-ZINC 20310532690 Active Wily Gonzalez DO Active NYSTATIN 847852 UNIT/GM CREA apply to rash TID PRN NYSTATIN 87505176352 Active Wily Gonzalez DO Active ZIAC 2.5-6.25 MG TAB 1 tablet every morning for high blood pressure BISOPROLOL-HCTZ 94384067474 No Longer Active Wily Gonzalez DO Active AMOXICILLIN 500 MG CAPS Take one (1) tablet by mouth three times a day 05/05 AMOXICILLIN 71182224587 No Longer Active Wily Gonzalez DO Active MORPHINE SULFATE ER 100 MG CR-TABS Take one (1) tablet by mouth twice a day MORPHINE SULFATE 02824114323 No Longer Active Wily Gonzalez DO Active MORPHINE SULFATE ER 100 MG [id number] 1 capsule twice daily for chronic pain MORPHINE SULFATE 52042313809 Active Wily Gonzalez DO Active FLONASE 50 MCG/ACT SUSP 2 sprays each nare q day FLUTICASONE PROPIONATE 90746205481 Active Rudy Cheung MD Active CIALIS 10 MG TABS 1 every 72 hours as needed TADALAFIL 75124677873 No Longer Active Esvin PAULA Active FLONASE 50 MCG/ACT SUSP 2 SPRAY EACH NARE DAILY FLUTICASONE PROPIONATE 49729194724 No Longer Active Esvin PAULA Active CYCLOBENZAPRINE HCL 10 MG TABS Take one (1) tablet by mouth three times a day CYCLOBENZAPRINE HCL 59791868399 Active Wily Gonzalez DO Active OPANA ER (CRUSH RESISTANT) 40 MG [id number] Take one (1) tablet by mouth twice a day OXYMORPHONE HCL 05654480879 No Longer Active Esvin PAULA Active POLY-IRON 150 150 MG CAPS 1 tab po bid POLYSACCHARIDE IRON COMPLEX 16882051203 Active Esvin PAULA Active PROAIR HFA 108 (90 BASE) MCG/ACT AERS 2 puffs every four hours as needed ALBUTEROL SULFATE 39871664480 No Longer Active Esvin PAULA Active CLEARLAX POWD 17gm q day prn constipation POLYETHYLENE GLYCOL 3350 84129630974 Active Jonas PAULA Active MORPHINE SULFATE ER 100 MG [id number] Take one (1) tablet by mouth twice a day MORPHINE SULFATE 86567391472 No Longer Active Esvin PAULA Active FLEXERIL 10 MG TAB 1 tablet by mouth 3 times daily as needed CYCLOBENZAPRINE HCL 61700318892 No Longer Active Esvin PAULA Active CELEBREX 200 MG CAPS 1 tablet by mouth twice daily with meals CELECOXIB 98543176352 No Longer Active Esvin PAULA Active NEXIUM 40 MG CPDR 1 cap daily ESOMEPRAZOLE MAGNESIUM 04606473148 No Longer Active Esvin PAULA Active MOBIC 15 MG TABS 1 tab daily MELOXICAM 27238239658 No Longer Active Esvin PAULA Active LISINOPRIL 20 MG TABS Take 1 tablet by mouth daily LISINOPRIL 37314780708 No Longer Active Esvin PAULA Active DICLOFENAC SODIUM 50 MG TBEC 1 tablet by mouth four times daily DICLOFENAC SODIUM 02173144083 No Longer Active Paula Cooney RN Active VERAMYST 27.5 MCG/SPRAY SUSP 2 spray each nare daily FLUTICASONE FUROATE 84254113322 No Longer Active Megan Vargas RN Active ENDOCET 10-325 MG TABS Take one (1) tablet by mouth three times a day OXYCODONE-ACETAMINOPHEN 26856496797 Active Wily Gonzalez DO Active ALPRAZOLAM 2 MG TABS Take one (1) tablet by mouth three times a day ALPRAZOLAM 96864256574 Active Wily Gonzalez DO Active NEXIUM 40 MG CPDR 1 cap by mouth daily ESOMEPRAZOLE MAGNESIUM 19423543450 No Longer Active Esvin PAULA Active ALPRAZOLAM 2 MG TABS 1 tablet by mouth three times daily as needed ALPRAZOLAM 41226334043 No Longer Active Esvin PAULA Active HYDROXYZINE HCL 25 MG TAB take 1 every 4-6 hours as needed 07/01 HYDROXYZINE HCL 24320071181 No Longer Active Esvin PAULA Active ENDOCET 10-325 MG TABS 1 by mouth twice a day OXYCODONE-ACETAMINOPHEN 48659323077 No Longer Active Esvin PAULA Active MS CONTIN 100 MG [id number] 1 by mouth twice a day MORPHINE SULFATE 60419100964 No Longer Active Esvin PAULA Active SUDAFED 30 MG TAB 1-2 every 4-6 hours as needed PSEUDOEPHEDRINE HCL 71719612531 Active Wily Gonzalez DO Active VERAMYST 27.5 MCG/SPRAY SUSP 2 spray each nare daily VERAMYST 27.5 MCG/SPRAY SUSP FLUTICASONE FUROATE Inactive DICLOFENAC SODIUM 50 MG TBEC 1 tablet by mouth four times daily DICLOFENAC SODIUM 50 MG TBEC 697022 DICLOFENAC SODIUM Inactive LISINOPRIL 20 MG TABS Take 1 tablet by mouth daily LISINOPRIL 20 MG TABS 452064 LISINOPRIL Inactive MOBIC 15 MG TABS 1 tab daily MOBIC 15 MG TABS 548876 MELOXICAM Inactive NEXIUM 40 MG CPDR 1 cap daily NEXIUM 40 MG CPDR ESOMEPRAZOLE MAGNESIUM Inactive CELEBREX 200 MG CAPS 1 tablet by mouth twice daily with meals CELEBREX 200 MG CAPS 410370 CELECOXIB Inactive FLEXERIL 10 MG TAB 1 tablet by mouth 3 times daily as needed FLEXERIL 10 MG TAB CYCLOBENZAPRINE HCL Inactive PROAIR HFA 108 (90 BASE) MCG/ACT AERS 2 puffs every four hours as needed PROAIR HFA 108 (90 BASE) MCG/ACT AERS ALBUTEROL SULFATE Inactive FLONASE 50 MCG/ACT SUSP 2 SPRAY EACH NARE DAILY FLONASE 50 MCG/ACT SUSP 578420 FLUTICASONE PROPIONATE Inactive CIALIS 10 MG TABS 1 every 72 hours as needed CIALIS 10 MG TABS TADALAFIL Inactive MORPHINE SULFATE ER 100 MG CR-TABS Take one (1) tablet by mouth twice a day MORPHINE SULFATE ER 100 MG CR-TABS MORPHINE SULFATE Inactive AMOXICILLIN 500 MG CAPS Take one (1) tablet by mouth three times a day 05/05 AMOXICILLIN 500 MG CAPS 325326 AMOXICILLIN Inactive ZIAC 2.5-6.25 MG TAB 1 tablet every morning for high blood pressure ZIAC 2.5-6.25 MG TAB 139882 BISOPROLOL-HCTZ Inactive ZIAC 2.5-6.25 MG TAB 1 tablet daily for high blood pressure 10/27 ZIAC 2.5-6.25 MG TAB 999132 BISOPROLOL-HCTZ Inactive HYDROXYZINE HCL 25 MG TABS Take one (1) tablet by mouth twice a day HYDROXYZINE HCL 25 MG TABS 674304 HYDROXYZINE HCL Inactive ANUSOL-HC 25 MG SUPPOSITORY 1 rectally every 12 hours for irritation ANUSOL-HC 25 MG SUPPOSITORY 8138648 HYDROCORTISONE NAEL (RECTAL ) Inactive HYDROXYZINE HCL 25 MG TAB 1 two times a day as needed for anxiety HYDROXYZINE HCL 25 MG TAB 149732 HYDROXYZINE HCL Inactive FLOMAX 0.4 MG CAPS 1 capsule in the evening for night time urination. FLOMAX 0.4 MG CAPS 190293 TAMSULOSIN HCL Inactive CLEMASTINE FUMARATE 1.34 MG ORAL TABS 1 tab PO BID CLEMASTINE FUMARATE 1.34 MG ORAL TABS 246278 CLEMASTINE FUMARATE Inactive MS CONTIN 100 MG [id number] 1 by mouth twice a day MS CONTIN 100 MG [id number] MORPHINE SULFATE Inactive ENDOCET 10-325 MG TABS 1 by mouth twice a day ENDOCET 10-325 MG TABS 3354849 OXYCODONE-ACETAMINOPHEN Inactive HYDROXYZINE HCL 25 MG TAB take 1 every 4-6 hours as needed 07/01 HYDROXYZINE HCL 25 MG TAB 919705 HYDROXYZINE HCL Inactive ALPRAZOLAM 2 MG TABS 1 tablet by mouth three times daily as needed ALPRAZOLAM 2 MG TABS 539937 ALPRAZOLAM Inactive NEXIUM 40 MG CPDR 1 [...] ... - Chemistry sodium, serum 138 mmol/L 846-825 3385/04/13 potassium, serum 4.9 mmol/L 3.5-5.2 chloride, serum [...] 142-424 Encounters Code Encounter Date Provider Facility CPT-86298 Level 3 Est. Patient 13:04:06 CDT Wily Gonzalez [facility] CPT-17809 Level 3 Est. Patient 12:23:04 CDT Wily Gonzalez [facility] CPT-90451 Level 3 Est. Patient 15:43:10 WINDOWS SEC[employer]ITY ANALYST Wily Gonzalez [facility] CPT-57484 Level 3 Est. Patient 16:10:54 CDT Wily Gonzalez [facility] CPT-77379 Level 3 Est. Patient 19:50:51 CDT Wily Gonzalez [facility] CPT-87917 Level 3 Est. Patient 12:02:30 WINDOWS SECURITY ANALYST Wily Gonzalez [facility] CPT-51495 Level 3 Est. Patient 12:03:11 WINDOWS SECURITY ANALYST Wily Gonzalez [facility] CPT-88433 Level 3 Est. Patient 12:01:41 WINDOWS SECURITY ANALYST Wily Gonzalez [facility] CPT-32847 Level 3 Est. Patient 11:51:24 WINDOWS SECURITY ANALYST Wily Gonzalez [facility] CPT-87436 Level 3 Est. Patient 11:58:20 WINDOWS SECURITY ANALYST Wily W Carlos [facility] CPT-22424 Level 3 Est. Patient 08:31:36 WINDOWS SECURITY ANALYST Wily Gonzalez [facility] CPT-01162 Level 3 Est. Patient 21:57:36 CDT Wily Gonzalez [facility] CPT-70892 Level 3 Est. Patient 10:49:58 CDT Esvin PAULA [facility] CPT-52937 Level 3 Est. Patient 11:22:52 CDT Esvin PAULA [facility] CPT-19580 Level 3 Est. Patient 13:49:[address] [facility]-82991 Level 3 Est. Patient 11:54:53 CDT Esvin PAULA [facility] CPT-73382 Level 3 Est. Patient 09:07:[address] [facility] CPT-10384 Level 3 Est. Patient 13:52:47 CDT Esvin PAULA [facility] CPT-85256 Level 3 Est. Patient 11:26:46 CDT Esvin PAULA [facility] CPT-86882 Level 3 Est. Patient 10:25:00 WINDOWS SECURITY ANALYST Esvin PAULA [facility] CPT-44282 Level 3 Est. Patient 11:39:11 WINDOWS SECURITY ANALYST Esvin PAULA [facility] CPT-75018 Level 3 Est. Patient 13:24:24 WINDOWS SECURITY ANALYST Esvin PAULA [facility] CPT-86172 Level 3 Est. Patient 10:26:13 WINDOWS SECURITY ANALYST Esvin PAULA [facility]-16303 Level 3 Est. Patient 10:21:[address] [facility] CPT-34605 Level 3 Est. Patient 10:26:[address] [facility] CPT-07658 Level 3 Est. Patient 09:16:37 CDT Esvin Hudson [facility] CPT-19324 Level 3 Est. Patient 09:06:[address] [facility] CPT-57695 Level 3 Est. Patient 10:05:[address] [facility] CPT-19427 Level 3 Est. Patient 10:38:[address] [facility] CPT-56773 Level 3 Est. Patient 10:09:[address] [facility] CPT-92941 Level 3 Est. Patient 09:26:[address] [facility] CPT-96550 Level 3 Est. Patient 10:34:42 WINDOWS SECURITY ANALYST Esvin PAULA [facility] CPT-06114 Level 3 Est. Patient 10:45:47 WINDOWS SECURITY ANALYST Esvin Hudson [facility] CPT-98992 Level 3 Est. Patient 10:45:22 WINDOWS SECURITY ANALYST Esvin Hudson [facility] CPT-58554 Level 3 Est. Patient 14:18:30 WINDOWS SECURITY ANALYST Esvin Tristan [facility] CPT-08957 Level 3 Est. Patient 13:53:29 WINDOWS SECURITY ANALYST Esvin Hudson [facility] CPT-74479 Level 3 Est. Patient 10:34:[address] [facility] Procedures Code Procedure Name Date Entry Date Standard Description CPT-39923 Venipuncture Draw Fee 09:26:55 CDT CPT-57103 Venipuncture Draw Fee 11:55:52 CDT CPT-05710 Spec Collection and Handling Fee 09:16:37 CDT [facility] [place]-21054 Venipuncture Draw Fee 09:16:37 CDT
--- OUTSIDE RECORDS SUMMARY | 2018-02-26 15:46 | XMS REPORT | Clinical Summary ---
Author Author Admin, E Organization [employer] Address Unknown Phone Unavailable Allergies, Adverse Reactions, [...] TABS 1 twice a day VARENICLINE TARTRATE [id number] Active Wily Gonzalez DO Active TRIAMCINOLONE ACETONIDE 0.1 % CREA Apply to affected area 3 times daily for up to 2 weeks TRIAMCINOLONE ACETONIDE 42609994817 Active Wily Gonzalez DO Active [id number] 167-83-8 MG TABS 1 tab po daily [id number] 28113661919 No Longer Active Wily Gonzalez DO Active NYSTATIN 561478 UNIT/GM CREA apply to rash TID PRN NYSTATIN 52189459421 No Longer Active Wily Gonzalez DO Active POLY-IRON 150 150 MG CAPS 1 tab po bid POLYSACCHARIDE IRON COMPLEX 67109441842 No Longer Active Wily Gonzalez DO Active FLONASE ALLERGY RELIEF 50 MCG/ACT NASAL SUSP 2 sprays each nostril every day FLUTICASONE PROPIONATE 68137477449 Active Jodi Lucas APRN Active CLEMASTINE FUMARATE 1.34 MG ORAL TABS 1 tab PO BID CLEMASTINE FUMARATE 69820650387 No Longer Active Wily Gonzalez DO Active FLOMAX 0.4 MG CAPS 1 capsule in the evening for night time urination. TAMSULOSIN HCL 67790304218 No Longer Active Wily Gonzalez DO Active PROTONIX 40 MG TBEC 1 po daily PANTOPRAZOLE SODIUM 48981931805 Active Agnieszka Yeung Active HYDROXYZINE HCL 25 MG TAB 1 two times a day as needed for anxiety HYDROXYZINE HCL 24090073225 No Longer Active Wily Gonzalez DO Active ANUSOL-HC 25 MG SUPPOSITORY 1 rectally every 12 hours for irritation HYDROCORTISONE NAEL (RECTAL) 61780052934 No Longer Active Wily Gonzalez DO Active HYDROXYZINE HCL 25 MG TABS Take one (1) tablet by mouth twice a day HYDROXYZINE HCL 50001072213 No Longer Active Wily Gonzalez DO Active ZIAC 2.5-6.25 MG TAB 1 tablet daily for high blood pressure 10/27 BISOPROLOL-HCTZ 90770648327 No Longer Active Wily Gonzalez DO Active ZIAC 2.5-6.25 MG TAB 1 tablet every morning for high blood pressure BISOPROLOL-HCTZ 27196601301 No Longer Active Wily Gonzalez DO Active AMOXICILLIN 500 MG CAPS Take one (1) tablet by mouth three times a day 05/05 AMOXICILLIN 93476168537 No Longer Active Wily Gonzalez DO Active MORPHINE SULFATE ER 100 MG CR-TABS Take one (1) tablet by mouth twice a day MORPHINE SULFATE 57202452971 No Longer Active Wily Gonzalez DO Active MORPHINE SULFATE ER 100 MG [id number] 1 capsule twice daily for chronic pain MORPHINE SULFATE 98314412602 Active Wily Gonzalez DO Active CIALIS 10 MG TABS 1 every 72 hours as needed TADALAFIL 70359283449 No Longer Active Esvin PAULA Active FLONASE 50 MCG/ACT SUSP 2 SPRAY EACH NARE DAILY FLUTICASONE PROPIONATE 05644998597 No Longer Active Esvin PAULA Active CYCLOBENZAPRINE HCL 10 MG TABS Take one (1) tablet by mouth three times a day CYCLOBENZAPRINE HCL 24419659132 Active Lisa Berkowitz Active OPANA ER (CRUSH RESISTANT) 40 MG [id number] Take one (1) tablet by mouth twice a day OXYMORPHONE HCL 45109080422 No Longer Active Esvin PAULA Active PROAIR HFA 108 (90 BASE) MCG/ACT AERS 2 puffs every four hours as needed ALBUTEROL SULFATE 68336964016 No Longer Active Esvin PAULA Active CLEARLAX POWD 17gm q day prn constipation POLYETHYLENE GLYCOL 3350 27664269528 Active Wily Gonzalez DO Active MORPHINE SULFATE ER 100 MG [id number]-HLN Take one (1) tablet by mouth twice a day MORPHINE SULFATE 15986689720 No Longer Active Esvin PAULA Active FLEXERIL 10 MG TAB 1 tablet by mouth 3 times daily as needed CYCLOBENZAPRINE HCL 67110640870 No Longer Active Esvin PAULA Active CELEBREX 200 MG CAPS 1 tablet by mouth twice daily with meals CELECOXIB 18437299224 No Longer Active Esvin PAULA Active NEXIUM 40 MG CPDR 1 cap daily ESOMEPRAZOLE MAGNESIUM 48888182365 No Longer Active Esvin PAULA Active MOBIC 15 MG TABS 1 tab daily MELOXICAM 07698426640 No Longer Active Esvin PAULA Active LISINOPRIL 20 MG TABS Take 1 tablet by mouth daily LISINOPRIL 52167790212 No Longer Active Esvin PAULA Active DICLOFENAC SODIUM 50 MG TBEC 1 tablet by mouth four times daily DICLOFENAC SODIUM 55049520344 No Longer Active Paula Cooney RN Active VERAMYST 27.5 MCG/SPRAY SUSP 2 spray each nare daily FLUTICASONE FUROATE 07926907979 No Longer Active Megan Vargas RN Active ENDOCET 10-325 MG TABS Take one (1) tablet by mouth three times a day OXYCODONE-ACETAMINOPHEN 09724591733 Active Wily Gonzalez DO Active ALPRAZOLAM 2 MG TABS Take one (1) tablet by mouth three times a day ALPRAZOLAM 01606518085 Active Wily Gonzalez DO Active NEXIUM 40 MG CPDR 1 cap by mouth daily ESOMEPRAZOLE MAGNESIUM 79121077915 No Longer Active Esvin PAULA Active ALPRAZOLAM 2 MG TABS 1 tablet by mouth three times daily as needed ALPRAZOLAM 37046505139 No Longer Active Esvin PAULA Active HYDROXYZINE HCL 25 MG TAB take 1 every 4-6 hours as needed 07/01 HYDROXYZINE HCL 93552396457 No Longer Active Esvin PAULA Active ENDOCET 10-325 MG TABS 1 by mouth twice a day OXYCODONE-ACETAMINOPHEN 82220312260 No Longer Active Esvin PAULA Active MS CONTIN 100 MG [id number] 1 by mouth twice a day MORPHINE SULFATE 95307692702 No Longer Active Esvin PAULA Active SUDAFED 30 MG TAB 1-2 every 4-6 hours as needed PSEUDOEPHEDRINE HCL 39389162697 Active Marylou Melissa RPT,RMA Active VERAMYST 27.5 MCG/SPRAY SUSP 2 spray each nare daily VERAMYST 27.5 MCG/SPRAY SUSP FLUTICASONE FUROATE Inactive DICLOFENAC SODIUM 50 MG TBEC 1 tablet by mouth four times daily DICLOFENAC SODIUM 50 MG TBEC 069199 DICLOFENAC SODIUM Inactive LISINOPRIL 20 MG TABS Take 1 tablet by mouth daily LISINOPRIL 20 MG TABS 783937 LISINOPRIL Inactive MOBIC 15 MG TABS 1 tab daily MOBIC 15 MG TABS 496318 MELOXICAM Inactive NEXIUM 40 MG CPDR 1 cap daily NEXIUM 40 MG CPDR 792624 ESOMEPRAZOLE MAGNESIUM Inactive CELEBREX 200 MG CAPS 1 tablet by mouth twice daily with meals CELEBREX 200 MG CAPS 052357 CELECOXIB Inactive FLEXERIL 10 MG TAB 1 [...] a day 05/05 AMOXICILLIN 500 MG CAPS 783267 AMOXICILLIN Inactive ZIAC 2.5-6.25 MG TAB 1 tablet every morning for high blood pressure ZIAC 2.5-6.25 MG TAB 007948 BISOPROLOL-HCTZ Inactive ZIAC 2.5-6.25 MG TAB 1 tablet daily for high blood pressure 10/27 ZIAC 2.5-6.25 MG TAB 411032 BISOPROLOL-HCTZ Inactive HYDROXYZINE HCL 25 MG TABS Take one (1) tablet by mouth twice a day HYDROXYZINE HCL 25 MG TABS 621870 HYDROXYZINE HCL Inactive ANUSOL-HC 25 MG SUPPOSITORY 1 rectally every 12 hours for irritation ANUSOL-HC 25 MG SUPPOSITORY 0427362 HYDROCORTISONE NAEL (RECTAL ) Inactive HYDROXYZINE HCL 25 MG TAB 1 two times a day as needed for anxiety HYDROXYZINE HCL 25 MG TAB 466977 HYDROXYZINE HCL Inactive FLOMAX 0.4 MG CAPS 1 capsule in the evening for night time urination. FLOMAX 0.4 MG CAPS 892817 TAMSULOSIN HCL Inactive CLEMASTINE FUMARATE 1.34 MG ORAL TABS 1 tab PO BID CLEMASTINE FUMARATE 1.34 MG ORAL TABS 625279 CLEMASTINE FUMARATE Inactive POLY-IRON 150 150 MG CAPS 1 tab po bid POLY-IRON 150 150 MG CAPS POLYSACCHARIDE IRON COMPLEX Inactive NYSTATIN 806926 UNIT/GM CREA apply to rash TID PRN NYSTATIN 093035 UNIT/GM CREA 570803 NYSTATIN Inactive [id number] 167-83-8 MG TABS 1 tab po daily [id number] 167-83-8 MG TABS [id number]-MIBI Inactive MS CONTIN 100 MG [id number] 1 by mouth twice a day MS CONTIN 100 MG [id number] MORPHINE SULFATE Inactive ENDOCET 10-325 MG TABS 1 by mouth twice a day ENDOCET 10-325 MG TABS 5676004 OXYCODONE-ACETAMINOPHEN Inactive HYDROXYZINE HCL 25 MG TAB take 1 every 4-6 hours as needed 07/01 HYDROXYZINE HCL 25 MG TAB 120382 HYDROXYZINE HCL Inactive ALPRAZOLAM 2 MG TABS 1 tablet by mouth three times daily as needed ALPRAZOLAM 2 MG TABS 017896 ALPRAZOLAM Inactive NEXIUM 40 MG CPDR 1 cap by mouth daily NEXIUM 40 MG CPDR 897978 ESOMEPRAZOLE MAGNESIUM Inactive Advance Directives Directive Description [...] ... - Chemistry sodium, serum 140 mmol/L 805-542 8957/03/25 carbon dioxide, venous blood 31.3 mmol/L 21.0-32.0 potassium, serum 4.0 mmol/L 3.5-5.2 chloride, serum 101 mmol/L 98-107 blood glucose 96 mg/dL 65-110 urea nitrogen, blood 7 mg/dL 7-18 creatinine, serum 0.94 mg/dL 0.55-1.30 alanine aminotransferase (SGPT), serum 23 U/L 12-78 aspartate aminotransferase (SGOT), serum 21 U/L 15-37 calcium, serum 8.9 mg/dL 8.5-10.1 bilirubin, serum, total 0.30 mg/dL 0.00-1.00 cholesterol, serum 169 mg/dL 413-817 5391/03/25 triglyceride, serum, fasting 143 mg/dL 30-200 HDL [...] 5.0-8.5 Encounters Code Encounter Date Provider Facility CPT-11852 Level 3 Est. Patient 09:51:37 RECOVERY ANALYST Wily Zhang [facility] CPT-85461 Level 3 Est. Patient 11:07:48 CDT Wily Zhang [facility] CPT-07924 Level 3 Est. Patient 11:24:24 CDT Wily Zhang [facility] CPT-49551 Level 3 Est. Patient 15:19:54 RECOVERY ANALYST Wily Zhang [facility] CPT-67650 Level 3 Est. Patient 10:04:45 CDT Wily Zhang [facility] CPT-27004 Level 3 Est. Patient 13:04:06 CDT Wily Zhang [facility] CPT-96253 Level 3 Est. Patient 12:23:04 CDT Wily Zhang [facility] CPT-91426 Level 3 Est. Patient 15:43:10 RECOVERY ANALYST Wily Zhang [facility] CPT-29284 Level 3 Est. Patient 16:10:54 CDT Wily Gonzalez [facility] CPT-31417 Level 3 Est. Patient 19:50:51 CDT Wily Gonzalez [facility] CPT-72952 Level 3 Est. Patient 12:02:30 RECOVERY ANALYST Wily Gonzalez [facility] CPT-27496 Level 3 Est. Patient 12:03:11 RECOVERY ANALYST Wily Gonzalez [facility] CPT-18207 Level 3 Est. Patient 12:01:41 RECOVERY ANALYST Wily Gonzalez [facility] CPT-14525 Level 3 Est. Patient 11:51:24 RECOVERY ANALYST Wily Gonzalez [facility] CPT-64511 Level 3 Est. Patient 11:58:20 RECOVERY ANALYST Wily Gonzalez [facility] CPT-38802 Level 3 Est. Patient 08:31:36 RECOVERY ANALYST Wily Gonzalez [facility] CPT-62263 Level 3 Est. Patient 21:57:36 CDT Wily Gonzalez [facility] CPT-09404 Level 3 Est. Patient 10:49:58 CDT Esvin PAULA [facility] CPT-01204 Level 3 Est. Patient 11:22:52 CDT Esvin Hudson [facility] CPT-82475 Level 3 Est. Patient 13:49:41 CDT Esvin Hudson [facility] CPT-20831 Level 3 Est. Patient 11:54:53 CDT Esvin Hudson [facility] CPT-74728 Level 3 Est. Patient 09:07:11 CDT Esvin Hudson [facility] CPT-16106 Level 3 Est. Patient 13:52:47 CDT Esvin Hudson [facility] CPT-00935 Level 3 Est. Patient 11:26:46 CDT Esvin PAULA [facility] CPT-02033 Level 3 Est. Patient 10:25:00 RECOVERY ANALYST Esvin Tristan PA [facility] CPT-70133 Level 3 Est. Patient 11:39:11 RECOVERY ANALYST Esvin Priestinge PAULA [facility]-55146 Level 3 Est. Patient 13:24:24 RECOVERY ANALYST Esvin Tristan PA [facility] CPT-48072 Level 3 Est. Patient 10:26:13 RECOVERY ANALYST Esvin Priestinge PAULA [facility] CPT-19299 Level 3 Est. Patient 10:21:21 CDT Esvin Tristan PA [facility]-69993 Level 3 Est. Patient 10:26:30 CDT Esvin Tristan PA [facility] CPT-80016 Level 3 Est. Patient 09:16:37 CDT Esvin Lorenzo PA [facility]-60337 Level 3 Est. Patient 09:06:58 CDT Esvin Tristan PA [facility] CPT-73045 Level 3 Est. Patient 10:05:29 CDT Esvin Tristan PA [facility] CPT-83944 Level 3 Est. Patient 10:38:45 CDT Esvin Tristan PA [facility] CPT-82448 Level 3 Est. Patient 10:09:45 CDT Esvin Tristan [facility] CPT-95453 Level 3 Est. Patient 09:26:37 CDT Esvin Tristan PA [facility] CPT-79685 Level 3 Est. Patient 10:34:42 RECOVERY ANALYST Esvin Tristan PA [facility] CPT-40768 Level 3 Est. Patient 10:45:47 RECOVERY ANALYST Esvin PAULA [facility] CPT-18552 Level 3 Est. Patient 10:45:22 RECOVERY ANALYST Esvin Hudson [facility] CPT-13069 Level 3 Est. Patient 14:18:30 RECOVERY ANALYST Esvin Hudson [facility] CPT-60404 Level 3 Est. Patient 13:53:29 RECOVERY ANALYST Esvin Lorenzo [facility] CPT-32188 Level 3 Est. Patient 10:34:11 CDT Esvin Tristan [facility] Procedures Code Procedure Name Date Entry Date Standard Description CPT-23588 Bone Density - XRAY USE ONLY 11:29:32 CDT CPT-86886 LS spine AP and Lat - XRAY USE ONLY 10:07:43 RECOVERY ANALYST 10/26 CPT-26884 Venipuncture Draw Fee 09:51:16 RECOVERY ANALYST CPT-07299 Smoking Cessation counseling 09:39:47 RECOVERY ANALYST CPT-G0438 Initial Annual Wellness Exam 09:37:28 RECOVERY ANALYST CPT-03598 Venipuncture Draw Fee 09:26:55 CDT CPT-52086 Venipuncture Draw Fee 11:55:52 CDT CPT-47100 Spec Collection and Handling Fee 09:16:37 CDT CPT-65531 Venipuncture Draw Fee 09:16:37 CDT
--- OUTSIDE RECORDS SUMMARY | 2018-02-26 15:47 | XMS REPORT | Clinical Summary ---
Author Author Admin, E Organization [facility] Address Unknown Phone Unavailable [...] TABS 1 twice a day VARENICLINE TARTRATE 52958084295 Active Wily Gonzalez DO Active TRIAMCINOLONE ACETONIDE 0.1 % CREA Apply to affected area 3 times daily for up to 2 weeks TRIAMCINOLONE ACETONIDE 35371740442 Active Wily Gonzalez DO Active [id number]-[id number] 167-83-8 MG TABS 1 tab po daily [id number] 12593268883 No Longer Active Wily Gonzalez DO Active NYSTATIN 827660 UNIT/GM CREA apply to rash TID PRN NYSTATIN 43178028492 No Longer Active Wily Gonzalez DO Active POLY-IRON 150 150 MG CAPS 1 tab po bid POLYSACCHARIDE IRON COMPLEX 89411172547 No Longer Active Wily Gonzalez DO Active FLONASE ALLERGY RELIEF 50 MCG/ACT NASAL SUSP 2 sprays each nostril every day FLUTICASONE PROPIONATE 57934695779 Active Jodi Lucas WATCHSTANDER Active CLEMASTINE FUMARATE 1.34 MG ORAL TABS 1 tab PO BID CLEMASTINE FUMARATE 43949385202 No Longer Active Wily Gonzalez DO Active FLOMAX 0.4 MG CAPS 1 capsule in the evening for night time urination. TAMSULOSIN HCL 03069558835 No Longer Active Wily Gonzalez DO Active PROTONIX 40 MG TBEC 1 po daily PANTOPRAZOLE SODIUM 57085570305 Active Agnieszka Yeung Active HYDROXYZINE HCL 25 MG TAB 1 two times a day as needed for anxiety HYDROXYZINE HCL 65811936172 No Longer Active Wily Gonzalez DO Active ANUSOL-HC 25 MG SUPPOSITORY 1 rectally every 12 hours for irritation HYDROCORTISONE NAEL (RECTAL) 21857361520 No Longer Active Wily Gonzalez DO Active HYDROXYZINE HCL 25 MG TABS Take one (1) tablet by mouth twice a day HYDROXYZINE HCL 97792382591 No Longer Active Wily Gonzalez DO Active ZIAC 2.5-6.25 MG TAB 1 tablet daily for high blood pressure 10/27 BISOPROLOL-HCTZ 31786121816 No Longer Active Wily Gonzalez DO Active ZIAC 2.5-6.25 MG TAB 1 tablet every morning for high blood pressure BISOPROLOL-HCTZ 61355780038 No Longer Active Wily Gonzalez DO Active AMOXICILLIN 500 MG CAPS Take one (1) tablet by mouth three times a day 05/05 AMOXICILLIN 97578410579 No Longer Active Wily Gonzalez DO Active MORPHINE SULFATE ER 100 MG CR-TABS Take one (1) tablet by mouth twice a day MORPHINE SULFATE 77232456582 No Longer Active Wily Gonzalez DO Active MORPHINE SULFATE ER 100 MG [id number] 1 capsule twice daily for chronic pain MORPHINE SULFATE 44112915913 Active Wily Gonzalez DO Active CIALIS 10 MG TABS 1 every 72 hours as needed TADALAFIL 82244935493 No Longer Active Esvin PAULA Active FLONASE 50 MCG/ACT SUSP 2 SPRAY EACH NARE DAILY FLUTICASONE PROPIONATE 39090875532 No Longer Active Esvin PAULA Active CYCLOBENZAPRINE HCL 10 MG TABS Take one (1) tablet by mouth three times a day CYCLOBENZAPRINE HCL 52599571240 Active Agnieszka Yeung Active OPANA ER (CRUSH RESISTANT) 40 MG [id number]-ITG Take one (1) tablet by mouth twice a day OXYMORPHONE HCL 83865055911 No Longer Active Esvin PAULA Active PROAIR HFA 108 (90 BASE) MCG/ACT AERS 2 puffs every four hours as needed ALBUTEROL SULFATE 32727278805 No Longer Active Esvin PAULA Active CLEARLAX POWD 17gm q day prn constipation POLYETHYLENE GLYCOL 3350 96952411847 Active Wily Gonzalez DO Active MORPHINE SULFATE ER 100 MG OU75L-XCW Take one (1) tablet by mouth twice a day MORPHINE SULFATE 24896624806 No Longer Active Esvin PAULA Active FLEXERIL 10 MG TAB 1 tablet by mouth 3 times daily as needed CYCLOBENZAPRINE HCL 05378796870 No Longer Active Esvin PAULA Active CELEBREX 200 MG CAPS 1 tablet by mouth twice daily with meals CELECOXIB 37272267318 No Longer Active Esvin PAULA Active NEXIUM 40 MG CPDR 1 cap daily ESOMEPRAZOLE MAGNESIUM 36482166966 No Longer Active Esvin PAULA Active MOBIC 15 MG TABS 1 tab daily MELOXICAM 77700805792 No Longer Active Esvin PAULA Active LISINOPRIL 20 MG TABS Take 1 tablet by mouth daily LISINOPRIL 84546849842 No Longer Active Esvin PAULA Active DICLOFENAC SODIUM 50 MG TBEC 1 tablet by mouth four times daily DICLOFENAC SODIUM 08860125825 No Longer Active Paula Cooney RN Active VERAMYST 27.5 MCG/SPRAY SUSP 2 spray each nare daily FLUTICASONE FUROATE 23501731475 No Longer Active Meganbarbra Vargas RN Active ENDOCET 10-325 MG TABS Take one (1) tablet by mouth three times a day OXYCODONE-ACETAMINOPHEN 24355368377 Active Wily Gonzalez DO Active ALPRAZOLAM 2 MG TABS Take one (1) tablet by mouth three times a day ALPRAZOLAM 24636392430 Active Wily Gonzalez DO Active NEXIUM 40 MG CPDR 1 cap by mouth daily ESOMEPRAZOLE MAGNESIUM 04080896477 No Longer Active Esvin PAULA Active ALPRAZOLAM 2 MG TABS 1 tablet by mouth three times daily as needed ALPRAZOLAM 73233816096 No Longer Active Esvin PAULA Active HYDROXYZINE HCL 25 MG TAB take 1 every 4-6 hours as needed 07/01 HYDROXYZINE HCL 99565979085 No Longer Active Esvin PAULA Active ENDOCET 10-325 MG TABS 1 by mouth twice a day OXYCODONE-ACETAMINOPHEN 53705285775 No Longer Active Esvin PAULA Active MS CONTIN 100 MG [id number]-[id number] 1 by mouth twice a day MORPHINE SULFATE 52557598827 No Longer Active Esvin PAULA Active SUDAFED 30 MG TAB 1-2 every 4-6 hours as needed PSEUDOEPHEDRINE HCL 78872464173 Active Marylou Melissa RPT,RMA Active VERAMYST 27.5 MCG/SPRAY SUSP 2 spray each nare daily VERAMYST 27.5 MCG/SPRAY SUSP FLUTICASONE FUROATE Inactive DICLOFENAC SODIUM 50 MG TBEC 1 tablet by mouth four times daily DICLOFENAC SODIUM 50 MG TBEC 096666 DICLOFENAC SODIUM Inactive LISINOPRIL 20 MG TABS Take 1 tablet by mouth daily LISINOPRIL 20 MG TABS 171874 LISINOPRIL Inactive MOBIC 15 MG TABS 1 tab daily MOBIC 15 MG TABS 192338 MELOXICAM Inactive NEXIUM 40 MG CPDR 1 cap daily NEXIUM 40 MG CPDR 237502 ESOMEPRAZOLE MAGNESIUM Inactive CELEBREX 200 MG CAPS 1 tablet by mouth twice daily with meals CELEBREX 200 MG CAPS 088337 CELECOXIB Inactive FLEXERIL 10 MG TAB 1 [...] a day 05/05 AMOXICILLIN 500 MG CAPS 145773 AMOXICILLIN Inactive ZIAC 2.5-6.25 MG TAB 1 tablet every morning for high blood pressure ZIAC 2.5-6.25 MG TAB 792569 BISOPROLOL-HCTZ Inactive ZIAC 2.5-6.25 MG TAB 1 tablet daily for high blood pressure 10/27 ZIAC 2.5-6.25 MG TAB 640930 BISOPROLOL-HCTZ Inactive HYDROXYZINE HCL 25 MG TABS Take one (1) tablet by mouth twice a day HYDROXYZINE HCL 25 MG TABS 009302 HYDROXYZINE HCL Inactive ANUSOL-HC 25 MG SUPPOSITORY 1 rectally every 12 hours for irritation ANUSOL-HC 25 MG SUPPOSITORY 5343806 HYDROCORTISONE NAEL (RECTAL ) Inactive HYDROXYZINE HCL 25 MG TAB 1 two times a day as needed for anxiety HYDROXYZINE HCL 25 MG TAB 217813 HYDROXYZINE HCL Inactive FLOMAX 0.4 MG CAPS 1 capsule in the evening for night time urination. FLOMAX 0.4 MG CAPS 523995 TAMSULOSIN HCL Inactive CLEMASTINE FUMARATE 1.34 MG ORAL TABS 1 tab PO BID CLEMASTINE FUMARATE 1.34 MG ORAL TABS 325438 CLEMASTINE FUMARATE Inactive POLY-IRON 150 150 MG CAPS 1 tab po bid POLY-IRON 150 150 MG CAPS POLYSACCHARIDE IRON COMPLEX Inactive NYSTATIN 219466 UNIT/GM CREA apply to rash TID PRN NYSTATIN 889192 UNIT/GM CREA 013141 NYSTATIN Inactive NQESPNW-AOZZDBWSZ-BNSI 167-83-8 MG TABS 1 tab po daily JJZKYNU-ATEAPQWPM-LYOH 167-83-8 MG TABS CNIEDZN-YMCEBHSOQ-NLNS Inactive MS CONTIN 100 MG HE19Y-JRU 1 by mouth twice a day MS CONTIN 100 MG OJ71B-HIR MORPHINE SULFATE Inactive ENDOCET 10-325 MG TABS 1 by mouth twice a day ENDOCET 10-325 MG TABS 7600958 OXYCODONE-ACETAMINOPHEN Inactive HYDROXYZINE HCL 25 MG TAB take 1 every 4-6 hours as needed 07/01 HYDROXYZINE HCL 25 MG TAB 159577 HYDROXYZINE HCL Inactive ALPRAZOLAM 2 MG TABS 1 tablet by mouth three times daily as needed ALPRAZOLAM 2 MG TABS 161695 ALPRAZOLAM Inactive NEXIUM 40 MG CPDR 1 cap by mouth daily NEXIUM 40 MG CPDR 382821 ESOMEPRAZOLE MAGNESIUM Inactive Advance Directives Directive Description [...] ... - Chemistry sodium, serum 140 mmol/L 600-795 5568/03/25 carbon dioxide, venous blood 31.3 mmol/L 21.0-32.0 potassium, serum 4.0 mmol/L 3.5-5.2 chloride, serum 101 mmol/L 98-107 blood glucose 96 mg/dL 65-110 urea nitrogen, blood 7 mg/dL 7-18 creatinine, serum 0.94 mg/dL 0.55-1.30 alanine aminotransferase (SGPT), serum 23 U/L 12-78 aspartate aminotransferase (SGOT), serum 21 U/L 15-37 calcium, serum 8.9 mg/dL 8.5-10.1 bilirubin, serum, total 0.30 mg/dL 0.00-1.00 cholesterol, serum 169 mg/dL 642-474 5832/03/25 triglyceride, serum, fasting 143 mg/dL 30-200 HDL [...] 5.0-8.5 Encounters Code Encounter Date Provider Facility CPT-24399 Level 3 Est. Patient 09:51:37 REAL ESTATE SERVICES COORDINATOR Wily Gonzalez [facility] CPT-02724 Level 3 Est. Patient 11:07:48 CDT Wily Gonzalez [facility] CPT-58044 Level 3 Est. Patient 11:24:24 CDT Wily Zhang [facility] CPT-43551 Level 3 Est. Patient 15:19:54 REAL ESTATE SERVICES COORDINATOR Wily Gonzalez [facility] CPT-22713 Level 3 Est. Patient 10:04:45 CDT Wily Gonzalez [facility] CPT-90315 Level 3 Est. Patient 13:04:06 CDT Wily Gonzalez [facility] CPT-60726 Level 3 Est. Patient 12:23:04 CDT Wily Gonzalez [facility] CPT-42656 Level 3 Est. Patient 15:43:10 REAL ESTATE SERVICES COORDINATOR Wily Gonzalez [facility] CPT-21085 Level 3 Est. Patient 16:10:54 CDT Wily Gonzalez [facility] CPT-30944 Level 3 Est. Patient 19:50:51 CDT Wily Zhang [facility] CPT-07629 Level 3 Est. Patient 12:02:30 REAL ESTATE SERVICES COORDINATOR Wily Gonzalez [facility] CPT-31560 Level 3 Est. Patient 12:03:11 REAL ESTATE SERVICES COORDINATOR Wily Gonzalez [facility] CPT-97455 Level 3 Est. Patient 12:01:41 REAL ESTATE SERVICES COORDINATOR Wily Gonzalez [facility] CPT-78590 Level 3 Est. Patient 11:51:24 REAL ESTATE SERVICES COORDINATOR Wily Gonzalez [facility] CPT-93907 Level 3 Est. Patient 11:58:20 REAL ESTATE SERVICES COORDINATOR Wily Gonzalez [facility] CPT-73526 Level 3 Est. Patient 08:31:36 REAL ESTATE SERVICES COORDINATOR Wily Gonzalez [facility] CPT-46002 Level 3 Est. Patient 21:57:36 CDT Wily Gonzalez [facility] CPT-94870 Level 3 Est. Patient 10:49:58 CDT Esvin PAULA [facility] CPT-80188 Level 3 Est. Patient 11:22:52 CDT Esvin PAULA [facility] CPT-34126 Level 3 Est. Patient 13:49:41 CDT Esvin PAULA [facility] CPT-83497 Level 3 Est. Patient 11:54:53 CDT Esvin PAULA [facility] CPT-73002 Level 3 Est. Patient 09:07:11 CDT Esvin PAULA [facility] CPT-38996 Level 3 Est. Patient 13:52:47 CDT Esvin PAULA [facility] CPT-55674 Level 3 Est. Patient 11:26:46 CDT Esvin PAULA [facility] CPT-38191 Level 3 Est. Patient 10:25:00 REAL ESTATE SERVICES COORDINATOR Esvin PAULA [facility] CPT-53451 Level 3 Est. Patient 11:39:11 REAL ESTATE SERVICES COORDINATOR Esvin PAULA [facility] CPT-74114 Level 3 Est. Patient 13:24:24 REAL ESTATE SERVICES COORDINATOR Esvin Tristan PA [facility] CPT-37060 Level 3 Est. Patient 10:26:13 REAL ESTATE SERVICES COORDINATOR Esvin [place] PA [facility] CPT-16513 Level 3 Est. Patient 10:21:21 CDT Esvin Tristan PA [facility] CPT-01291 Level 3 Est. Patient 10:26:30 CDT Esvin Hudson [facility] CPT-50409 Level 3 Est. Patient 09:16:37 CDT Esvin [place] PA [facility]-22625 Level 3 Est. Patient 09:06:58 CDT Esvin [place] PA [facility] CPT-77064 Level 3 Est. Patient 10:05:29 CDT Esvin Tristan PA [facility] CPT-07517 Level 3 Est. Patient 10:38:45 CDT Esvin [place] PA [facility] CPT-17308 Level 3 Est. Patient 10:09:45 CDT Esvin [place] PA [facility] CPT-76375 Level 3 Est. Patient 09:26:37 CDT Esvin Tristan PA [facility] CPT-12073 Level 3 Est. Patient 10:34:42 REAL ESTATE SERVICES COORDINATOR Esvin Tristan [facility] CPT-36802 Level 3 Est. Patient 10:45:47 REAL ESTATE SERVICES COORDINATOR Esvin Tristan PA [facility] CPT-74334 Level 3 Est. Patient 10:45:22 REAL ESTATE SERVICES COORDINATOR Esvin Tristan PA [facility]-27506 Level 3 Est. Patient 14:18:30 REAL ESTATE SERVICES COORDINATOR Esvin PAULA [facility] CPT-79362 Level 3 Est. Patient 13:53:29 REAL ESTATE SERVICES COORDINATOR Esvin PAULA [facility] CPT-34711 Level 3 Est. Patient 10:34:11 CDT Esvin [facility] Procedures Code Procedure Name Date Entry Date Standard Description CPT-24550 LS spine AP and Lat - XRAY USE ONLY 10:07:43 [employer] ESTATE SERVICES COORDINATOR 10/26 CPT-26249 Venipuncture Draw Fee 09:51:16 [employer] ESTATE SERVICES COORDINATOR CPT-63078 Smoking Cessation counseling 09:39:47 REAL ESTATE SERVICES COORDINATOR CPT-G0438 Initial Annual Wellness Exam 09:37:28 REAL ESTATE SERVICES COORDINATOR CPT-73158 Venipuncture Draw Fee 09:26:55 CDT CPT-20118 Venipuncture Draw Fee 11:55:52 CDT CPT-38946 Spec Collection and Handling Fee 09:16:37 CDT CPT-86185 Venipuncture Draw Fee 09:16:37 CDT
--- OUTSIDE RECORDS SUMMARY | 2018-02-26 15:48 | XMS REPORT | Clinical Summary ---
[...] TABS 1 twice a day VARENICLINE TARTRATE [id number] Active Wily Gonzalez DO Active TRIAMCINOLONE ACETONIDE 0.1 % CREA Apply to affected area 3 times daily for up to 2 weeks TRIAMCINOLONE ACETONIDE 91006054457 Active Wily Gonzalez DO Active GANJSIB-XNNLROLBF-MFLM 167-83-8 MG TABS 1 tab po daily [id number] 11502884403 No Longer Active Wily Gonzalez DO Active NYSTATIN 304757 UNIT/GM CREA apply to rash TID PRN NYSTATIN 40004678368 No Longer Active Wily Gonzalez DO Active POLY-IRON 150 150 MG CAPS 1 tab po bid POLYSACCHARIDE IRON COMPLEX 08466509967 No Longer Active Wily Gonzalez DO Active FLONASE ALLERGY RELIEF 50 MCG/ACT NASAL SUSP 2 sprays each nostril every day FLUTICASONE PROPIONATE 83329462699 Active Jodi Lucas SENIOR QC TECHNICIAN Active CLEMASTINE FUMARATE 1.34 MG ORAL TABS 1 tab PO BID CLEMASTINE FUMARATE 26957776356 No Longer Active Wily Gonzalez DO Active FLOMAX 0.4 MG CAPS 1 capsule in the evening for night time urination. TAMSULOSIN HCL 73785951307 No Longer Active Wily Gonzalez DO Active PROTONIX 40 MG TBEC 1 po daily PANTOPRAZOLE SODIUM 31169892971 Active Agnieszka Yeung Active HYDROXYZINE HCL 25 MG TAB 1 two times a day as needed for anxiety HYDROXYZINE HCL 36313847150 No Longer Active Wily Gonzalez DO Active ANUSOL-HC 25 MG SUPPOSITORY 1 rectally every 12 hours for irritation HYDROCORTISONE NAEL (RECTAL) 71627670425 No Longer Active Wily Gonzalez DO Active HYDROXYZINE HCL 25 MG TABS Take one (1) tablet by mouth twice a day HYDROXYZINE HCL 56719325345 No Longer Active Wily Gonzalez DO Active ZIAC 2.5-6.25 MG TAB 1 tablet daily for high blood pressure 10/27 BISOPROLOL-HCTZ 46480760684 No Longer Active Wily Gonzalez DO Active ZIAC 2.5-6.25 MG TAB 1 tablet every morning for high blood pressure BISOPROLOL-HCTZ 45580724841 No Longer Active Wily Gonzalez DO Active AMOXICILLIN 500 MG CAPS Take one (1) tablet by mouth three times a day 05/05 AMOXICILLIN 66036337845 No Longer Active Wily Gonzalez DO Active MORPHINE SULFATE ER 100 MG CR-TABS Take one (1) tablet by mouth twice a day MORPHINE SULFATE 82283547409 No Longer Active Wily Gonzalez DO Active MORPHINE SULFATE ER 100 MG [id number] 1 capsule twice daily for chronic pain MORPHINE SULFATE 88068027170 Active Wily Gonzalez DO Active CIALIS 10 MG TABS 1 every 72 hours as needed TADALAFIL 24657291728 No Longer Active Esvin PAULA Active FLONASE 50 MCG/ACT SUSP 2 SPRAY EACH NARE DAILY FLUTICASONE PROPIONATE 62700598970 No Longer Active Esvin PAULA Active CYCLOBENZAPRINE HCL 10 MG TABS Take one (1) tablet by mouth three times a day CYCLOBENZAPRINE HCL 78643344982 Active Agnieszka Yeung Active OPANA ER (CRUSH RESISTANT) 40 MG [id number] Take one (1) tablet by mouth twice a day OXYMORPHONE HCL 32413372272 No Longer Active Esvin PAULA Active PROAIR HFA 108 (90 BASE) MCG/ACT AERS 2 puffs every four hours as needed ALBUTEROL SULFATE 29748183710 No Longer Active Esvin PAULA Active CLEARLAX POWD 17gm q day prn constipation POLYETHYLENE GLYCOL 3350 92713415370 Active Wily Gonzalez DO Active MORPHINE SULFATE ER 100 MG [id number] Take one (1) tablet by mouth twice a day MORPHINE SULFATE 19630082811 No Longer Active Esvin PAULA Active FLEXERIL 10 MG TAB 1 tablet by mouth 3 times daily as needed CYCLOBENZAPRINE HCL 05513161846 No Longer Active Esvin PAULA Active CELEBREX 200 MG CAPS 1 tablet by mouth twice daily with meals CELECOXIB 31487936736 No Longer Active Esvin PAULA Active NEXIUM 40 MG CPDR 1 cap daily ESOMEPRAZOLE MAGNESIUM 74192009165 No Longer Active Esvin PAULA Active MOBIC 15 MG TABS 1 tab daily MELOXICAM 27198819820 No Longer Active Esvin PAULA Active LISINOPRIL 20 MG TABS Take 1 tablet by mouth daily LISINOPRIL 53586571396 No Longer Active Esvin PAULA Active DICLOFENAC SODIUM 50 MG TBEC 1 tablet by mouth four times daily DICLOFENAC SODIUM 08529438317 No Longer Active Paula Cooney RN Active VERAMYST 27.5 MCG/SPRAY SUSP 2 spray each nare daily FLUTICASONE FUROATE 17479646149 No Longer Active Meganbarbra Vargas RN Active ENDOCET 10-325 MG TABS Take one (1) tablet by mouth three times a day OXYCODONE-ACETAMINOPHEN 52461744941 Active Wily Gonzalez DO Active ALPRAZOLAM 2 MG TABS Take one (1) tablet by mouth three times a day ALPRAZOLAM 22631605662 Active Wily Gonzalez DO Active NEXIUM 40 MG CPDR 1 cap by mouth daily ESOMEPRAZOLE MAGNESIUM 49795622916 No Longer Active Esvin PAULA Active ALPRAZOLAM 2 MG TABS 1 tablet by mouth three times daily as needed ALPRAZOLAM 95095977491 No Longer Active Esvin PAULA Active HYDROXYZINE HCL 25 MG TAB take 1 every 4-6 hours as needed 07/01 HYDROXYZINE HCL 02060202160 No Longer Active Esvin PAULA Active ENDOCET 10-325 MG TABS 1 by mouth twice a day OXYCODONE-ACETAMINOPHEN 19976251574 No Longer Active Esvin PAULA Active MS CONTIN 100 MG [id number] 1 by mouth twice a day MORPHINE SULFATE 37202493342 No Longer Active Esvin PAULA Active SUDAFED 30 MG TAB 1-2 every 4-6 hours as needed PSEUDOEPHEDRINE HCL 62323803332 Active Marylou Melissa RPT,RMA Active VERAMYST 27.5 MCG/SPRAY SUSP 2 spray each nare daily VERAMYST 27.5 MCG/SPRAY SUSP FLUTICASONE FUROATE Inactive DICLOFENAC SODIUM 50 MG TBEC 1 tablet by mouth four times daily DICLOFENAC SODIUM 50 MG TBEC 605988 DICLOFENAC SODIUM Inactive LISINOPRIL 20 MG TABS Take 1 tablet by mouth daily LISINOPRIL 20 MG TABS 229071 LISINOPRIL Inactive MOBIC 15 MG TABS 1 tab daily MOBIC 15 MG TABS 064804 MELOXICAM Inactive NEXIUM 40 MG CPDR 1 cap daily NEXIUM 40 MG CPDR 087319 ESOMEPRAZOLE MAGNESIUM Inactive CELEBREX 200 MG CAPS 1 tablet by mouth twice daily with meals CELEBREX 200 MG CAPS 414829 CELECOXIB Inactive FLEXERIL 10 MG TAB 1 [...] a day 05/05 AMOXICILLIN 500 MG CAPS 930607 AMOXICILLIN Inactive ZIAC 2.5-6.25 MG TAB 1 tablet every morning for high blood pressure ZIAC 2.5-6.25 MG TAB 111232 BISOPROLOL-HCTZ Inactive ZIAC 2.5-6.25 MG TAB 1 tablet daily for high blood pressure 10/27 ZIAC 2.5-6.25 MG TAB 492734 BISOPROLOL-HCTZ Inactive HYDROXYZINE HCL 25 MG TABS Take one (1) tablet by mouth twice a day HYDROXYZINE HCL 25 MG TABS 342730 HYDROXYZINE HCL Inactive ANUSOL-HC 25 MG SUPPOSITORY 1 rectally every 12 hours for irritation ANUSOL-HC 25 MG SUPPOSITORY 3181701 HYDROCORTISONE NAEL (RECTAL ) Inactive HYDROXYZINE HCL 25 MG TAB 1 two times a day as needed for anxiety HYDROXYZINE HCL 25 MG TAB 625215 HYDROXYZINE HCL Inactive FLOMAX 0.4 MG CAPS 1 capsule in the evening for night time urination. FLOMAX 0.4 MG CAPS 999944 TAMSULOSIN HCL Inactive CLEMASTINE FUMARATE 1.34 MG ORAL TABS 1 tab PO BID CLEMASTINE FUMARATE 1.34 MG ORAL TABS 573266 CLEMASTINE FUMARATE Inactive POLY-IRON 150 150 MG CAPS 1 tab po bid POLY-IRON 150 150 MG CAPS POLYSACCHARIDE IRON COMPLEX Inactive NYSTATIN 053004 UNIT/GM CREA apply to rash TID PRN NYSTATIN 827376 UNIT/GM CREA 599436 NYSTATIN Inactive ZEFLSUV-CIRNSBPXK-NOYR 167-83-8 MG TABS 1 tab po daily [id number]-IOSPAJTIG-RYNU 167-83-8 MG TABS QBLFNTV-QSBEERPRX-FPOT Inactive MS CONTIN 100 MG SE06L-MUC 1 by mouth twice a day MS CONTIN 100 MG [id number] MORPHINE SULFATE Inactive ENDOCET 10-325 MG TABS 1 by mouth twice a day ENDOCET 10-325 MG TABS 6632406 OXYCODONE-ACETAMINOPHEN Inactive HYDROXYZINE HCL 25 MG TAB take 1 every 4-6 hours as needed 07/01 HYDROXYZINE HCL 25 MG TAB 571258 HYDROXYZINE HCL Inactive ALPRAZOLAM 2 MG TABS 1 tablet by mouth three times daily as needed ALPRAZOLAM 2 MG TABS 552715 ALPRAZOLAM Inactive NEXIUM 40 MG CPDR 1 cap by mouth daily NEXIUM 40 MG CPDR 239434 ESOMEPRAZOLE MAGNESIUM Inactive Advance Directives Directive Description [...] ... - Chemistry sodium, serum 140 mmol/L 527-906 3872/03/25 carbon dioxide, venous blood 31.3 mmol/L 21.0-32.0 potassium, serum 4.0 mmol/L 3.5-5.2 chloride, serum 101 mmol/L 98-107 blood glucose 96 mg/dL 65-110 urea nitrogen, blood 7 mg/dL 7-18 creatinine, serum 0.94 mg/dL 0.55-1.30 alanine aminotransferase (SGPT), serum 23 U/L 12-78 aspartate aminotransferase (SGOT), serum 21 U/L 15-37 calcium, serum 8.9 mg/dL 8.5-10.1 bilirubin, serum, total 0.30 mg/dL 0.00-1.00 cholesterol, serum 169 mg/dL 907-951 9012/03/25 triglyceride, serum, fasting 143 mg/dL 30-200 HDL [...] 5.0-8.5 Encounters Code Encounter Date Provider Facility CPT-04585 Level 3 Est. Patient 09:51:37 ASSEMBLING MACHINE OPERATOR Wily Gonzalez [facility] CPT-65004 Level 3 Est. Patient 11:07:48 CDT Wily Gonzalez [facility] CPT-93827 Level 3 Est. Patient 11:24:24 CDT Wily Zhang [facility] CPT-12300 Level 3 Est. Patient 15:19:54 ASSEMBLING MACHINE OPERATOR Wily Gonzalez [facility] CPT-74675 Level 3 Est. Patient 10:04:45 CDT Wily Gonzalez [facility] CPT-41460 Level 3 Est. Patient 13:04:06 CDT Wily Gonzalez [facility] CPT-63021 Level 3 Est. Patient 12:23:04 CDT Wily Gonzalez [facility] CPT-50204 Level 3 Est. Patient 15:43:10 ASSEMBLING MACHINE OPERATOR Wily Gonzalez [facility] CPT-96718 Level 3 Est. Patient 16:10:54 CDT Wily Gonzalez [facility] CPT-65276 Level 3 Est. Patient 19:50:51 CDT Wily Zhang [facility] CPT-78485 Level 3 Est. Patient 12:02:30 ASSEMBLING MACHINE OPERATOR Wily Gonzalez [facility] CPT-68954 Level 3 Est. Patient 12:03:11 ASSEMBLING MACHINE OPERATOR Wily Gonzalez [facility] CPT-15063 Level 3 Est. Patient 12:01:41 ASSEMBLING MACHINE OPERATOR Wily Gonzalez [facility] CPT-56504 Level 3 Est. Patient 11:51:24 ASSEMBLING MACHINE OPERATOR Wily Gonzalez [facility] CPT-76798 Level 3 Est. Patient 11:58:20 ASSEMBLING MACHINE OPERATOR Wily Gonzalez [facility] CPT-49327 Level 3 Est. Patient 08:31:36 ASSEMBLING MACHINE OPERATOR Wily Gonzalez [facility] CPT-12910 Level 3 Est. Patient 21:57:36 CDT Wily Gonzalez [facility] CPT-96808 Level 3 Est. Patient 10:49:58 CDT Esvin PAULA [facility] CPT-00434 Level 3 Est. Patient 11:22:52 CDT Esvin PAULA [facility] CPT-09892 Level 3 Est. Patient 13:49:41 CDT Esvin PAULA [facility] CPT-21416 Level 3 Est. Patient 11:54:53 CDT Esvin PAULA [facility] CPT-35685 Level 3 Est. Patient 09:07:11 CDT Esvin PAULA [facility] CPT-61100 Level 3 Est. Patient 13:52:47 CDT Esvin PAULA [facility] CPT-82617 Level 3 Est. Patient 11:26:46 CDT Esvin PAULA [facility] CPT-29969 Level 3 Est. Patient 10:25:00 ASSEMBLING MACHINE OPERATOR Esvin PAULA [facility] CPT-41085 Level 3 Est. Patient 11:39:11 ASSEMBLING MACHINE OPERATOR Esvin PAULA [facility] CPT-49336 Level 3 Est. Patient 13:24:24 ASSEMBLING MACHINE OPERATOR Esvin Tristan PA [facility] CPT-46293 Level 3 Est. Patient 10:26:13 ASSEMBLING MACHINE OPERATOR Esvin Soso PA [facility] CPT-27236 Level 3 Est. Patient 10:21:21 CDT Esvin Tristan PA [facility] CPT-31910 Level 3 Est. Patient 10:26:30 CDT Esvin Hudson CHAI [facility] CPT-89251 Level 3 Est. Patient 09:16:37 CDT Esvin Soso PA [facility]-67288 Level 3 Est. Patient 09:06:58 CDT Esvin Soso PA [facility] CPT-91542 Level 3 Est. Patient 10:05:29 CDT Esvin Tristan PA [facility] CPT-50433 Level 3 Est. Patient 10:38:45 CDT Esvin Soso PA [facility] CPT-08506 Level 3 Est. Patient 10:09:45 CDT Esvin Soso PA [facility] CPT-13853 Level 3 Est. Patient 09:26:37 CDT Esvin Tristan PA [facility] CPT-35645 Level 3 Est. Patient 10:34:42 ASSEMBLING MACHINE OPERATOR Esvin Tristan CHAI [facility] CPT-87631 Level 3 Est. Patient 10:45:47 ASSEMBLING MACHINE OPERATOR Esvin Tristan PA [facility] CPT-61518 Level 3 Est. Patient 10:45:22 ASSEMBLING MACHINE OPERATOR Esvin Tristan PA [facility]-27590 Level 3 Est. Patient 14:18:30 ASSEMBLING MACHINE OPERATOR Esvin PAULA [facility] CPT-01039 Level 3 Est. Patient 13:53:29 ASSEMBLING MACHINE OPERATOR Esvin PAULA [facility] CPT-37802 Level 3 Est. Patient 10:34:11 CDT Esvin Hudson [facility] Procedures Code Procedure Name Date Entry Date Standard Description CPT-09900 LS spine AP and Lat - XRAY USE ONLY 10:07:43 ASSEMBLING MACHINE OPERATOR 10/26 CPT-46027 Venipuncture Draw Fee 09:51:16 ASSEMBLING MACHINE OPERATOR CPT-04787 Smoking Cessation counseling 09:39:47 ASSEMBLING MACHINE OPERATOR CPT-G0438 Initial Annual Wellness Exam 09:37:28 ASSEMBLING MACHINE OPERATOR CPT-11250 Venipuncture Draw Fee 09:26:55 CDT CPT-62928 Venipuncture Draw Fee 11:55:52 CDT CPT-67435 Spec Collection and Handling Fee 09:16:37 CDT CPT-60586 Venipuncture Draw Fee 09:16:37 CDT
--- OUTSIDE RECORDS SUMMARY | 2018-02-26 15:49 | XMS REPORT | Clinical Summary ---
Author Author Admin, E Organization [employer] Address Unknown Phone Unavailable Allergies, Adverse Reactions, [...] Generic Name NDC Status Provider Patient Instruction [id number] 167-83-8 MG TABS 1 tab po daily [id number] No Longer Active Wily Gonzalez DO Active NYSTATIN 625352 UNIT/GM CREA apply to rash TID PRN NYSTATIN 65923174716 No Longer Active Wily Gonzalez DO Active POLY-IRON 150 150 MG CAPS 1 tab po bid POLYSACCHARIDE IRON COMPLEX 74219987545 No Longer Active Wily Gonzalez DO Active FLONASE ALLERGY RELIEF 50 MCG/ACT NASAL SUSP 2 sprays each nostril every day FLUTICASONE PROPIONATE 69482883671 Active Wily Gonzalez DO Active CLEMASTINE FUMARATE 1.34 MG ORAL TABS 1 tab PO BID CLEMASTINE FUMARATE 68240741197 No Longer Active Wily Gonzalez DO Active FLOMAX 0.4 MG CAPS 1 capsule in the evening for night time urination. TAMSULOSIN HCL 28264153790 No Longer Active Wily Gonzalez DO Active PROTONIX 40 MG TBEC 1 po daily PANTOPRAZOLE SODIUM 88345425334 Active Agnieszka Yeung Active HYDROXYZINE HCL 25 MG TAB 1 two times a day as needed for anxiety HYDROXYZINE HCL 71108497105 No Longer Active Wily Gonzalez DO Active ANUSOL-HC 25 MG SUPPOSITORY 1 rectally every 12 hours for irritation HYDROCORTISONE NAEL (RECTAL) 64028420118 No Longer Active Wily Gonzalez DO Active HYDROXYZINE HCL 25 MG TABS Take one (1) tablet by mouth twice a day HYDROXYZINE HCL 21455221244 No Longer Active Wily Gonzalez DO Active ZIAC 2.5-6.25 MG TAB 1 tablet daily for high blood pressure 10/27 BISOPROLOL-HCTZ 21737894127 No Longer Active Wily Gonzalez DO Active ZIAC 2.5-6.25 MG TAB 1 tablet every morning for high blood pressure BISOPROLOL-HCTZ 11663626460 No Longer Active Wily Gonzalez DO Active AMOXICILLIN 500 MG CAPS Take one (1) tablet by mouth three times a day 05/05 AMOXICILLIN 82055083400 No Longer Active Wily Gonzalez DO Active MORPHINE SULFATE ER 100 MG CR-TABS Take one (1) tablet by mouth twice a day MORPHINE SULFATE 84711752487 No Longer Active Wily Gonzalez DO Active MORPHINE SULFATE ER 100 MG [id number] 1 capsule twice daily for chronic pain MORPHINE SULFATE 87740502722 Active Rose Bang Active CIALIS 10 MG TABS 1 every 72 hours as needed TADALAFIL 97513246147 No Longer Active Esvin PAULA Active FLONASE 50 MCG/ACT SUSP 2 SPRAY EACH NARE DAILY FLUTICASONE PROPIONATE 44126820063 No Longer Active Esvin PAULA Active CYCLOBENZAPRINE HCL 10 MG TABS Take one (1) tablet by mouth three times a day CYCLOBENZAPRINE HCL 16262309655 Active Wily Gonzalez DO Active OPANA ER (CRUSH RESISTANT) 40 MG [id number] Take one (1) tablet by mouth twice a day OXYMORPHONE HCL 72513589193 No Longer Active Esvin PAULA Active PROAIR HFA 108 (90 BASE) MCG/ACT AERS 2 puffs every four hours as needed ALBUTEROL SULFATE 30098263478 No Longer Active Esvin PAULA Active CLEARLAX POWD 17gm q day prn constipation POLYETHYLENE GLYCOL 3350 12358778549 Active Kaylen Leigh MA Active MORPHINE SULFATE ER 100 MG HE49D-LWB Take one (1) tablet by mouth twice a day MORPHINE SULFATE 12841662062 No Longer Active Esvin PAULA Active FLEXERIL 10 MG TAB 1 tablet by mouth 3 times daily as needed CYCLOBENZAPRINE HCL 43596794903 No Longer Active Esvin PAULA Active CELEBREX 200 MG CAPS 1 tablet by mouth twice daily with meals CELECOXIB 67343305681 No Longer Active Esvin PAULA Active NEXIUM 40 MG CPDR 1 cap daily ESOMEPRAZOLE MAGNESIUM 55594562047 No Longer Active Esvin PAULA Active MOBIC 15 MG TABS 1 tab daily MELOXICAM 31167450424 No Longer Active Esvin PAULA Active LISINOPRIL 20 MG TABS Take 1 tablet by mouth daily LISINOPRIL 98516364441 No Longer Active Esvin PAULA Active DICLOFENAC SODIUM 50 MG TBEC 1 tablet by mouth four times daily DICLOFENAC SODIUM 00221929083 No Longer Active Paula Cooney RN Active VERAMYST 27.5 MCG/SPRAY SUSP 2 spray each nare daily FLUTICASONE FUROATE 25750162394 No Longer Active Megan Vargas RN Active ENDOCET 10-325 MG TABS Take one (1) tablet by mouth three times a day OXYCODONE-ACETAMINOPHEN 33294086526 Active Rose Bang Active ALPRAZOLAM 2 MG TABS Take one (1) tablet by mouth three times a day ALPRAZOLAM 89409175692 Active Rose Bang Active NEXIUM 40 MG CPDR 1 cap by mouth daily ESOMEPRAZOLE MAGNESIUM 73104340481 No Longer Active Esvin PAULA Active ALPRAZOLAM 2 MG TABS 1 tablet by mouth three times daily as needed ALPRAZOLAM 42680716068 No Longer Active Esvin PAULA Active HYDROXYZINE HCL 25 MG TAB take 1 every 4-6 hours as needed 07/01 HYDROXYZINE HCL 98945445926 No Longer Active Esvin PAULA Active ENDOCET 10-325 MG TABS 1 by mouth twice a day OXYCODONE-ACETAMINOPHEN 54493097554 No Longer Active Esvin PAULA Active MS CONTIN 100 MG [id number]-YLT 1 by mouth twice a day MORPHINE SULFATE 22332825982 No Longer Active Esvin PAULA Active SUDAFED 30 MG TAB 1-2 every 4-6 hours as needed PSEUDOEPHEDRINE HCL 67126278420 Active Marylou Melissa RPT,RMA Active VERAMYST 27.5 MCG/SPRAY SUSP 2 spray each nare daily VERAMYST 27.5 MCG/SPRAY SUSP FLUTICASONE FUROATE Inactive DICLOFENAC SODIUM 50 MG TBEC 1 tablet by mouth four times daily DICLOFENAC SODIUM 50 MG TBEC 247528 DICLOFENAC SODIUM Inactive LISINOPRIL 20 MG TABS Take 1 tablet by mouth daily LISINOPRIL 20 MG TABS 965011 LISINOPRIL Inactive MOBIC 15 MG TABS 1 tab daily MOBIC 15 MG TABS 396223 MELOXICAM Inactive NEXIUM 40 MG CPDR 1 cap daily NEXIUM 40 MG CPDR 927748 ESOMEPRAZOLE MAGNESIUM Inactive CELEBREX 200 MG CAPS 1 tablet by mouth twice daily with meals CELEBREX 200 MG CAPS 456693 CELECOXIB Inactive FLEXERIL 10 MG TAB 1 [...] a day 05/05 AMOXICILLIN 500 MG CAPS 875784 AMOXICILLIN Inactive ZIAC 2.5-6.25 MG TAB 1 tablet every morning for high blood pressure ZIAC 2.5-6.25 MG TAB 774979 BISOPROLOL-HCTZ Inactive ZIAC 2.5-6.25 MG TAB 1 tablet daily for high blood pressure 10/27 ZIAC 2.5-6.25 MG TAB 159205 BISOPROLOL-HCTZ Inactive HYDROXYZINE HCL 25 MG TABS Take one (1) tablet by mouth twice a day HYDROXYZINE HCL 25 MG TABS 163115 HYDROXYZINE HCL Inactive ANUSOL-HC 25 MG SUPPOSITORY 1 rectally every 12 hours for irritation ANUSOL-HC 25 MG SUPPOSITORY 0977045 HYDROCORTISONE NAEL (RECTAL ) Inactive HYDROXYZINE HCL 25 MG TAB 1 two times a day as needed for anxiety HYDROXYZINE HCL 25 MG TAB 942258 HYDROXYZINE HCL Inactive FLOMAX 0.4 MG CAPS 1 capsule in the evening for night time urination. FLOMAX 0.4 MG CAPS 881064 TAMSULOSIN HCL Inactive CLEMASTINE FUMARATE 1.34 MG ORAL TABS 1 tab PO BID CLEMASTINE FUMARATE 1.34 MG ORAL TABS 128544 CLEMASTINE FUMARATE Inactive POLY-IRON 150 150 MG CAPS 1 tab po bid POLY-IRON 150 150 MG CAPS POLYSACCHARIDE IRON COMPLEX Inactive NYSTATIN 657580 UNIT/GM CREA apply to rash TID PRN NYSTATIN 165329 UNIT/GM CREA 906832 NYSTATIN Inactive [id number] 167-83-8 MG TABS 1 tab po daily [id number] 167-83-8 MG TABS [id number] Inactive MS CONTIN 100 MG [id number] 1 by mouth twice a day MS CONTIN 100 MG [id number] MORPHINE SULFATE Inactive ENDOCET 10-325 MG TABS 1 by mouth twice a day ENDOCET 10-325 MG TABS 4011512 OXYCODONE-ACETAMINOPHEN Inactive HYDROXYZINE HCL 25 MG TAB take 1 every 4-6 hours as needed 07/01 HYDROXYZINE HCL 25 MG TAB 269888 HYDROXYZINE HCL Inactive ALPRAZOLAM 2 MG TABS 1 tablet by mouth three times daily as needed ALPRAZOLAM 2 MG TABS 949447 ALPRAZOLAM Inactive NEXIUM 40 MG CPDR 1 cap by mouth daily NEXIUM 40 MG CPDR 423030 ESOMEPRAZOLE MAGNESIUM Inactive Advance Directives Directive Description [...] ... - Chemistry sodium, serum 140 mmol/L 778-524 1110/03/25 carbon dioxide, venous blood 31.3 mmol/L 21.0-32.0 potassium, serum 4.0 mmol/L 3.5-5.2 chloride, serum 101 mmol/L 98-107 blood glucose 96 mg/dL 65-110 urea nitrogen, blood 7 mg/dL 7-18 creatinine, serum 0.94 mg/dL 0.55-1.30 alanine aminotransferase (SGPT), serum 23 U/L 12-78 aspartate aminotransferase (SGOT), serum 21 U/L 15-37 calcium, serum 8.9 mg/dL 8.5-10.1 bilirubin, serum, total 0.30 mg/dL 0.00-1.00 cholesterol, serum 169 mg/dL 586-560 3328/03/25 triglyceride, serum, fasting 143 mg/dL 30-200 HDL [...] 5.0-8.5 Encounters Code Encounter Date Provider Facility CPT-90265 Level 3 Est. Patient 11:07:48 CDT Wily Gonzalez [facility] CPT-33760 Level 3 Est. Patient 11:24:24 CDT Wily Gonzalez [facility] CPT-32567 Level 3 Est. Patient 15:19:54 [employer] Wily Zhang [facility] CPT-05477 Level 3 Est. Patient 10:04:45 CDT Wily Gonzalez [facility] CPT-46759 Level 3 Est. Patient 13:04:06 CDT Wily Gonzalez [facility] CPT-95093 Level 3 Est. Patient 12:23:04 CDT Wily Gonzalez [facility] CPT-44937 Level 3 Est. Patient 15:43:10 [employer] Wily Gonzalez [facility] CPT-11391 Level 3 Est. Patient 16:10:54 CDT Wily Gonzalez [facility] CPT-69072 Level 3 Est. Patient 19:50:51 CDT Wily Gonzalez [facility] CPT-65639 Level 3 Est. Patient 12:02:30 ME[employer] Wily Gonzalez [facility] CPT-50476 Level 3 Est. Patient 12:03:11 ME[employer]OSTESS Wily Gonzalez [facility] CPT-68446 Level 3 Est. Patient 12:01:41 ME[employer] HOSTESS Wily Gonzalez [facility] CPT-42612 Level 3 Est. Patient 11:51:24 ME[employer]OSTESS Wily Gonzalez [facility] CPT-34950 Level 3 Est. Patient 11:58:20 ME[employer] HOSTESS Wily Gonzalez [facility] CPT-11440 Level 3 Est. Patient 08:31:36 ME[employer]ESS Wily Gonzalez [facility] CPT-47032 Level 3 Est. Patient 21:57:36 CDT Wily Gonzalez [facility] CPT-25551 Level 3 Est. Patient 10:49:58 CDT Esvin PAULA [facility] CPT-60916 Level 3 Est. Patient 11:22:52 CDT Esvin PAULA [facility] CPT-31941 Level 3 Est. Patient 13:49:41 CDT Esvin PAULA [facility] CPT-42632 Level 3 Est. Patient 11:54:53 CDT Esvin PAULA [facility] CPT-76410 Level 3 Est. Patient 09:07:11 CDT Esvin PAULA [facility] CPT-64135 Level 3 Est. Patient 13:52:47 CDT Esvin PAULA [facility] CPT-91147 Level 3 Est. Patient 11:26:46 CDT Esvin PAULA [facility] CPT-43500 Level 3 Est. Patient 10:25:00 ME[employer] HOSTESS Esvin PAULA [facility] CPT-49746 Level 3 Est. Patient 11:39:11 MEAT HOSTESS Esvin PAULA [facility] CPT-34048 Level 3 Est. Patient 13:24:24 MEAT HOSTESS Esvin PAULA [facility] CPT-45251 Level 3 Est. Patient 10:26:13 MEAT HOSTESS Esvin Hudson [facility] CPT-50541 Level 3 Est. Patient 10:21:21 CDT Esvin PAULA [facility] CPT-54467 Level 3 Est. Patient 10:26:30 CDT Esvin PAULA [facility] CPT-17956 Level 3 Est. Patient 09:16:37 CDT Esvin PAULA [facility]-35126 Level 3 Est. Patient 09:06:58 CDT Esvin PAULA [facility] CPT-14843 Level 3 Est. Patient 10:05:29 CDT Esvin PAULA [facility] CPT-63953 Level 3 Est. Patient 10:38:45 CDT Esvin Hudson CHAI [facility] CPT-98379 Level 3 Est. Patient 10:09:45 CDT Esvin Tristan PA [facility] CPT-46308 Level 3 Est. Patient 09:26:37 CDT Esvin Blessing [facility] CPT-98283 Level 3 Est. Patient 10:34:42 ME[employer] HOSTESS Esvin Tristan [facility] CPT-43232 Level 3 Est. Patient 10:45:47 ME[employer] HOSTESS Esvin Tristan [facility] CPT-42570 Level 3 Est. Patient 10:45:22 ME[employer] HOSTESS Esvin Blessing [facility] CPT-38508 Level 3 Est. Patient 14:18:30 ME[employer] HOSTESS Esvin Tristan [facility] CPT-65976 Level 3 Est. Patient 13:53:29 ME[employer] HOSTESS Esvin Blessing [facility] CPT-04119 Level 3 Est. Patient 10:34:11 CDT Esvin Tristan [facility] Procedures Code Procedure Name Date Entry Date Standard Description CPT-07200 Venipuncture Draw Fee 09:26:55 CDT CPT-36376 Venipuncture Draw Fee 11:55:52 CDT CPT-93068 Spec Collection and Handling Fee 09:16:37 CDT CPT-89496 Venipuncture Draw Fee 09:16:37 CDT
--- OUTSIDE RECORDS SUMMARY | 2018-02-26 15:50 | XMS REPORT | Clinical Summary ---
Author Author Admin, E Organization [employer] Address Unknown Phone Unavailable Allergies, Adverse Reactions, [...] Take one by mouth daily CALCIUM- MAGNESIUM 22350573420 Active Wily Gonzalez DO Active FOSAMAX 70 MG TABS 1 po qweek. Take 30min prior to first food/drink. Avoid lying down x 1 hour. ALENDRONATE SODIUM 98670019905 Active Rose Bang Active CALCIUM 600 MG ORAL TABS 1 po q day CALCIUM 30711722266 Active Rose Bang Active CHANTIX 1 MG TABS 1 twice a day VARENICLINE TARTRATE 81824496891 Active Wily Gonzalez DO Active TRIAMCINOLONE ACETONIDE 0.1 % CREA Apply to affected area 3 times daily for up to 2 weeks TRIAMCINOLONE ACETONIDE 37831516173 Active Wily Gonzalez DO Active EYLWISS-SOILAQMIN-PNMB 167-83-8 MG TABS 1 tab po daily [id number] 07600448481 No Longer Active Wily Gonzalez DO Active NYSTATIN 869015 UNIT/GM CREA apply to rash TID PRN NYSTATIN 03272166848 No Longer Active Wily Gonzalez DO Active POLY-IRON 150 150 MG CAPS 1 tab po bid POLYSACCHARIDE IRON COMPLEX 79000693778 No Longer Active Wily Gonzalez DO Active FLONASE ALLERGY RELIEF 50 MCG/ACT NASAL SUSP 2 sprays each nostril every day FLUTICASONE PROPIONATE 16870783538 Active Jodi Lucas APRN Active CLEMASTINE FUMARATE 1.34 MG ORAL TABS 1 tab PO BID CLEMASTINE FUMARATE 46960594734 No Longer Active Wily Gonzalez DO Active FLOMAX 0.4 MG CAPS 1 capsule in the evening for night time urination. TAMSULOSIN HCL 86185259946 No Longer Active Wily Gonzalez DO Active PROTONIX 40 MG TBEC 1 po daily PANTOPRAZOLE SODIUM 50518235139 Active Agnieszka Yeung Active HYDROXYZINE HCL 25 MG TAB 1 two times a day as needed for anxiety HYDROXYZINE HCL 96848128092 No Longer Active Wily Gonzalez DO Active ANUSOL-HC 25 MG SUPPOSITORY 1 rectally every 12 hours for irritation HYDROCORTISONE NAEL (RECTAL) 97577817870 No Longer Active Wily Gonzalez DO Active HYDROXYZINE HCL 25 MG TABS Take one (1) tablet by mouth twice a day HYDROXYZINE HCL 79495227736 No Longer Active Wily Gonzalez DO Active ZIAC 2.5-6.25 MG TAB 1 tablet daily for high blood pressure 10/27 BISOPROLOL-HCTZ 45810507590 No Longer Active Wily Gonzalez DO Active ZIAC 2.5-6.25 MG TAB 1 tablet every morning for high blood pressure BISOPROLOL-HCTZ 58163749097 No Longer Active Wily Gonzalez DO Active AMOXICILLIN 500 MG CAPS Take one (1) tablet by mouth three times a day 05/05 AMOXICILLIN 13560702641 No Longer Active Wily Gonzalez DO Active MORPHINE SULFATE ER 100 MG CR-TABS Take one (1) tablet by mouth twice a day MORPHINE SULFATE 26744994337 No Longer Active Wily Gonzalez DO Active MORPHINE SULFATE ER 100 MG [id number] 1 capsule twice daily for chronic pain MORPHINE SULFATE 57848679616 Active Wily Gonzalez DO Active CIALIS 10 MG TABS 1 every 72 hours as needed TADALAFIL 28052411401 No Longer Active Esvin PAULA Active FLONASE 50 MCG/ACT SUSP 2 SPRAY EACH NARE DAILY FLUTICASONE PROPIONATE 38924451986 No Longer Active Esvin PAULA Active CYCLOBENZAPRINE HCL 10 MG TABS Take one (1) tablet by mouth three times a day CYCLOBENZAPRINE HCL 65008222299 Active Lisa Berkowitz Active OPANA ER (CRUSH RESISTANT) 40 MG [id number] Take one (1) tablet by mouth twice a day OXYMORPHONE HCL 77682250940 No Longer Active Esvin PAULA Active PROAIR HFA 108 (90 BASE) MCG/ACT AERS 2 puffs every four hours as needed ALBUTEROL SULFATE 64488021005 No Longer Active Esvin PAULA Active CLEARLAX POWD 17gm q day prn constipation POLYETHYLENE GLYCOL 3350 52770975328 Active Wily Gonzalez DO Active MORPHINE SULFATE ER 100 MG [id number] Take one (1) tablet by mouth twice a day MORPHINE SULFATE 71563555463 No Longer Active Esvin PAULA Active FLEXERIL 10 MG TAB 1 tablet by mouth 3 times daily as needed CYCLOBENZAPRINE HCL 99580993103 No Longer Active Esvin PAULA Active CELEBREX 200 MG CAPS 1 tablet by mouth twice daily with meals CELECOXIB 26360521888 No Longer Active Esvin PAULA Active NEXIUM 40 MG CPDR 1 cap daily ESOMEPRAZOLE MAGNESIUM 18599253233 No Longer Active Esvin PAULA Active MOBIC 15 MG TABS 1 tab daily MELOXICAM 77528690210 No Longer Active Esvin PAULA Active LISINOPRIL 20 MG TABS Take 1 tablet by mouth daily LISINOPRIL 78924452852 No Longer Active Esvin PAULA Active DICLOFENAC SODIUM 50 MG TBEC 1 tablet by mouth four times daily DICLOFENAC SODIUM 85411103575 No Longer Active Paula Cooney RN Active VERAMYST 27.5 MCG/SPRAY SUSP 2 spray each nare daily FLUTICASONE FUROATE 50223438454 No Longer Active Megan Vargas RN Active ENDOCET 10-325 MG TABS Take one (1) tablet by mouth three times a day OXYCODONE-ACETAMINOPHEN 55502743493 Active Wily Gonzalez DO Active ALPRAZOLAM 2 MG TABS Take one (1) tablet by mouth three times a day ALPRAZOLAM 61918833844 Active Wily Gonzalez DO Active NEXIUM 40 MG CPDR 1 cap by mouth daily ESOMEPRAZOLE MAGNESIUM 74993669354 No Longer Active Esvin PAULA Active ALPRAZOLAM 2 MG TABS 1 tablet by mouth three times daily as needed ALPRAZOLAM 91699948621 No Longer Active Esvin PAULA Active HYDROXYZINE HCL 25 MG TAB take 1 every 4-6 hours as needed 07/01 HYDROXYZINE HCL 67401087903 No Longer Active Esvin PAULA Active ENDOCET 10-325 MG TABS 1 by mouth twice a day OXYCODONE-ACETAMINOPHEN 40253562596 No Longer Active Esvin PAULA Active MS CONTIN 100 MG [id number] 1 by mouth twice a day MORPHINE SULFATE 36173445746 No Longer Active Esvin PAUAL Active SUDAFED 30 MG TAB 1-2 every 4-6 hours as needed PSEUDOEPHEDRINE HCL 33680494167 Active Marylou Melissa RPT,RMA Active VERAMYST 27.5 MCG/SPRAY SUSP 2 spray each nare daily VERAMYST 27.5 MCG/SPRAY SUSP FLUTICASONE FUROATE Inactive DICLOFENAC SODIUM 50 MG TBEC 1 tablet by mouth four times daily DICLOFENAC SODIUM 50 MG TBEC 993458 DICLOFENAC SODIUM Inactive LISINOPRIL 20 MG TABS Take 1 tablet by mouth daily LISINOPRIL 20 MG TABS 726294 LISINOPRIL Inactive MOBIC 15 MG TABS 1 tab daily MOBIC 15 MG TABS 543909 MELOXICAM Inactive NEXIUM 40 MG CPDR 1 cap daily NEXIUM 40 MG CPDR 386091 ESOMEPRAZOLE MAGNESIUM Inactive CELEBREX 200 MG CAPS 1 tablet by mouth twice daily with meals CELEBREX 200 MG CAPS 854595 CELECOXIB Inactive FLEXERIL 10 MG TAB 1 [...] a day 05/05 AMOXICILLIN 500 MG CAPS 350700 AMOXICILLIN Inactive ZIAC 2.5-6.25 MG TAB 1 tablet every morning for high blood pressure ZIAC 2.5-6.25 MG TAB 716753 BISOPROLOL-HCTZ Inactive ZIAC 2.5-6.25 MG TAB 1 tablet daily for high blood pressure 10/27 ZIAC 2.5-6.25 MG TAB 655102 BISOPROLOL-HCTZ Inactive HYDROXYZINE HCL 25 MG TABS Take one (1) tablet by mouth twice a day HYDROXYZINE HCL 25 MG TABS 849761 HYDROXYZINE HCL Inactive ANUSOL-HC 25 MG SUPPOSITORY 1 rectally every 12 hours for irritation ANUSOL-HC 25 MG SUPPOSITORY 1097589 HYDROCORTISONE NAEL (RECTAL ) Inactive HYDROXYZINE HCL 25 MG TAB 1 two times a day as needed for anxiety HYDROXYZINE HCL 25 MG TAB 152031 HYDROXYZINE HCL Inactive FLOMAX 0.4 MG CAPS 1 capsule in the evening for night time urination. FLOMAX 0.4 MG CAPS 320029 TAMSULOSIN HCL Inactive CLEMASTINE FUMARATE 1.34 MG ORAL TABS 1 tab PO BID CLEMASTINE FUMARATE 1.34 MG ORAL TABS 646676 CLEMASTINE FUMARATE Inactive POLY-IRON 150 150 MG CAPS 1 tab po bid POLY-IRON 150 150 MG CAPS POLYSACCHARIDE IRON COMPLEX Inactive NYSTATIN 395438 UNIT/GM CREA apply to rash TID PRN NYSTATIN 380181 UNIT/GM CREA 944112 NYSTATIN Inactive [id number] 167-83-8 MG TABS 1 tab po daily [id number] 167-83-8 MG TABS [id number]-[id number] Inactive MS CONTIN 100 MG SY22Y-LQO 1 by mouth twice a day MS CONTIN 100 MG [id number] MORPHINE SULFATE Inactive ENDOCET 10-325 MG TABS 1 by mouth twice a day ENDOCET 10-325 MG TABS 1130653 OXYCODONE-ACETAMINOPHEN Inactive HYDROXYZINE HCL 25 MG TAB take 1 every 4-6 hours as needed 07/01 HYDROXYZINE HCL 25 MG TAB 257896 HYDROXYZINE HCL Inactive ALPRAZOLAM 2 MG TABS 1 tablet by mouth three times daily as needed ALPRAZOLAM 2 MG TABS 081415 ALPRAZOLAM Inactive NEXIUM 40 MG CPDR 1 cap by mouth daily NEXIUM 40 MG CPDR 141764 ESOMEPRAZOLE MAGNESIUM Inactive Advance Directives Directive Description [...] Measured Encounters Code Encounter Date Provider Facility CPT-99818 Level 3 Est. Patient 14:25:57 CDT Wily Gonzalez [facility] CPT-96473 Level 3 Est. Patient 09:51:37 BIRD TENDER Wily Gonzalez [facility] CPT-11422 Level 3 Est. Patient 11:07:48 CDT Wily Gonzalez [facility] CPT-89552 Level 3 Est. Patient 11:24:24 CDT Wily Gonzalez [facility] CPT-08504 Level 3 Est. Patient 15:19:54 BIRD TENDER Wily Gonzalez [facility] CPT-15995 Level 3 Est. Patient 10:04:45 CDT Wily Gonzalez [facility] CPT-66928 Level 3 Est. Patient 13:04:06 CDT Wily Gonzalez [facility] CPT-00363 Level 3 Est. Patient 12:23:04 CDT Wily Gonzalez [facility] CPT-31123 Level 3 Est. Patient 15:43:10 BIRD TENDER Wily Gonzalez [facility] CPT-97805 Level 3 Est. Patient 16:10:54 CDT Wily Gonzalez [facility] CPT-18416 Level 3 Est. Patient 19:50:51 CDT Wily Gonzalez [facility] CPT-78245 Level 3 Est. Patient 12:02:30 BIRD TENDER Wily Gonzalez [facility] CPT-27192 Level 3 Est. Patient 12:03:11 BIRD TENDER Wily Gonzalez [facility] CPT-50474 Level 3 Est. Patient 12:01:41 BIRD TENDER Wily Gonzalez [facility] CPT-13839 Level 3 Est. Patient 11:51:24 BIRD TENDER Wily Gonzalez [facility] CPT-80327 Level 3 Est. Patient 11:58:20 BIRD TENDER Wily Gonzalez [facility] CPT-05056 Level 3 Est. Patient 08:31:36 BIRD TENDER Wily Gonzalez [facility] CPT-87638 Level 3 Est. Patient 21:57:36 CDT Wily Gonzalez [facility] CPT-92423 Level 3 Est. Patient 10:49:58 CDT Esvin PAULA [facility] CPT-75586 Level 3 Est. Patient 11:22:52 CDT Esvin PAULA [facility] CPT-77656 Level 3 Est. Patient 13:49:41 CDT Esvin PAULA [facility] CPT-62050 Level 3 Est. Patient 11:54:53 CDT Esvin PAULA [facility] CPT-63850 Level 3 Est. Patient 09:07:11 CDT Esvin PAULA [facility] CPT-29829 Level 3 Est. Patient 13:52:47 CDT Esvin PAULA [facility] CPT-67846 Level 3 Est. Patient 11:26:46 CDT Esvin PAULA [facility] CPT-43193 Level 3 Est. Patient 10:25:00 BIRD TENDER Esvin PAULA [facility] CPT-59984 Level 3 Est. Patient 11:39:11 BIRD TENDER Esvin PAULA [facility] CPT-68951 Level 3 Est. Patient 13:24:24 BIRD TENDER Esvin Hudson [facility] CPT-55754 Level 3 Est. Patient 10:26:13 BIRD TENDER Esvin Hudson [facility] CPT-29502 Level 3 Est. Patient 10:21:21 CDT Esvin Hudson [facility] CPT-95521 Level 3 Est. Patient 10:26:30 CDT Esivn Hudson [facility] CPT-83484 Level 3 Est. Patient 09:16:37 CDT Esvin Hudson [facility]-17071 Level 3 Est. Patient 09:06:58 CDT Esvin Hudson [facility] CPT-62351 Level 3 Est. Patient 10:05:29 CDT Esvin Hudson [facility] CPT-81704 Level 3 Est. Patient 10:38:45 CDT Esvin Hudson [facility] CPT-02392 Level 3 Est. Patient 10:09:45 CDT Esvin Hudson [facility] CPT-27185 Level 3 Est. Patient 09:26:37 CDT Esvin Hudson [facility] CPT-27457 Level 3 Est. Patient 10:34:42 BIRD TENDER Esvin Hudson [facility] CPT-84344 Level 3 Est. Patient 10:45:47 BIRD TENDER Esvin Tristan [facility] CPT-03251 Level 3 Est. Patient 10:45:22 BIRD TENDER Esvin Tristan [facility]-84889 Level 3 Est. Patient 14:18:30 BIRD TENDER Esvin Tristan [facility] CPT-14057 Level 3 Est. Patient 13:53:29 BIRD TENDER Esvin PAULA [facility] CPT-02224 Level 3 Est. Patient 10:34:11 CDT Esvin Hudson [facility] Procedures Code Procedure Name Date Entry Date Standard Description CPT-36104 Smoking Cessation counseling 14:25:57 CDT CPT-01505 Bone Density - XRAY USE ONLY 11:29:32 CDT CPT-26744 LS spine AP and Lat - XRAY USE ONLY 10:07:43 BIRD TENDER 10/26 CPT-78281 Venipuncture Draw Fee 09:51:16 BIRD TENDER CPT-89889 Smoking Cessation counseling 09:39:47 BIRD TENDER CPT-G0438 Initial Annual Wellness Exam 09:37:28 BIRD TENDER CPT-10853 Venipuncture Draw Fee 09:26:55 CDT CPT-03520 Venipuncture Draw Fee 11:55:52 CDT CPT-62687 Spec Collection and Handling Fee 09:16:37 CDT CPT-58881 Venipuncture Draw Fee 09:16:37 CDT
--- OUTSIDE RECORDS SUMMARY | 2018-02-26 15:51 | XMS REPORT | Clinical Summary ---
Author Author Admin, E Organization [employer] Address Unknown Phone Unavailable Allergies, Adverse Reactions, [...] Vicente Carlos ARMENDARIZ ANEMIA ICD-285.9 Inactive Wily Zhagn Carlos Tinea corporis ICD-110.5 Inactive Wily Gonzalez [...] TABS 1 twice a day VARENICLINE TARTRATE 34043049804 Active Wily Gonzalez DO Active TRIAMCINOLONE ACETONIDE 0.1 % CREA Apply to affected area 3 times daily for up to 2 weeks TRIAMCINOLONE ACETONIDE 94768772884 Active Wily Gonzalez DO Active [id number]-[id number]-XPQN 167-83-8 MG TABS 1 tab po daily LIYJYYP-TAESGJRPD-OTXS 69299662570 No Longer Active Wily Gonzalez DO Active NYSTATIN 097596 UNIT/GM CREA apply to rash TID PRN NYSTATIN 61468444614 No Longer Active Wily Gonzalez DO Active POLY-IRON 150 150 MG CAPS 1 tab po bid POLYSACCHARIDE IRON COMPLEX 13232541103 No Longer Active Wily Gonzalez DO Active FLONASE ALLERGY RELIEF 50 MCG/ACT NASAL SUSP 2 sprays each nostril every day FLUTICASONE PROPIONATE 55383324850 Active Jodiwaleska Lucas [employer] SUR[employer]YOR Active CLEMASTINE FUMARATE 1.34 MG ORAL TABS 1 tab PO BID CLEMASTINE FUMARATE 58439341158 No Longer Active Wily Gonzalez DO Active FLOMAX 0.4 MG CAPS 1 capsule in the evening for night time urination. TAMSULOSIN HCL 23071802561 No Longer Active Wily Gonzalez DO Active PROTONIX 40 MG TBEC 1 po daily PANTOPRAZOLE SODIUM 44880990459 Active Agnieszka Yeung Active HYDROXYZINE HCL 25 MG TAB 1 two times a day as needed for anxiety HYDROXYZINE HCL 77454607134 No Longer Active Wily Gonzalez DO Active ANUSOL-HC 25 MG SUPPOSITORY 1 rectally every 12 hours for irritation HYDROCORTISONE NAEL (RECTAL) 39817633990 No Longer Active Wily Gonzalez DO Active HYDROXYZINE HCL 25 MG TABS Take one (1) tablet by mouth twice a day HYDROXYZINE HCL 32880071480 No Longer Active Wily Gonzalez DO Active ZIAC 2.5-6.25 MG TAB 1 tablet daily for high blood pressure 10/27 BISOPROLOL-HCTZ 64889446274 No Longer Active Wily Gonzalez DO Active ZIAC 2.5-6.25 MG TAB 1 tablet every morning for high blood pressure BISOPROLOL-HCTZ 97437441722 No Longer Active Wily Gonzalez DO Active AMOXICILLIN 500 MG CAPS Take one (1) tablet by mouth three times a day 05/05 AMOXICILLIN 94226562006 No Longer Active Wily Gonzalez DO Active MORPHINE SULFATE ER 100 MG CR-TABS Take one (1) tablet by mouth twice a day MORPHINE SULFATE 54246104479 No Longer Active Wily Gonzalez DO Active MORPHINE SULFATE ER 100 MG RU38N-AOE 1 capsule twice daily for chronic pain MORPHINE SULFATE 46771461839 Active Wily Gonzalez DO Active CIALIS 10 MG TABS 1 every 72 hours as needed TADALAFIL 22126855911 No Longer Active Esvin PAULA Active FLONASE 50 MCG/ACT SUSP 2 SPRAY EACH NARE DAILY FLUTICASONE PROPIONATE 94493630665 No Longer Active Esvin PAUAL Active CYCLOBENZAPRINE HCL 10 MG TABS Take one (1) tablet by mouth three times a day CYCLOBENZAPRINE HCL 25689291957 Active Agnieszka Yeung Active OPANA ER (CRUSH RESISTANT) 40 MG JJ40L-ACB Take one (1) tablet by mouth twice a day OXYMORPHONE HCL 71858641329 No Longer Active Esvin PAULA Active PROAIR HFA 108 (90 BASE) MCG/ACT AERS 2 puffs every four hours as needed ALBUTEROL SULFATE 21983087082 No Longer Active Esvin PAULA Active CLEARLAX POWD 17gm q day prn constipation POLYETHYLENE GLYCOL 3350 78787426930 Active Wily Gonzalez DO Active MORPHINE SULFATE ER 100 MG AN84X-YJK Take one (1) tablet by mouth twice a day MORPHINE SULFATE 78806256564 No Longer Active Esvin PAULA Active FLEXERIL 10 MG TAB 1 tablet by mouth 3 times daily as needed CYCLOBENZAPRINE HCL 12609664149 No Longer Active Esvin PAULA Active CELEBREX 200 MG CAPS 1 tablet by mouth twice daily with meals CELECOXIB 09503706658 No Longer Active Esvin PAULA Active NEXIUM 40 MG CPDR 1 cap daily ESOMEPRAZOLE MAGNESIUM 81024063307 No Longer Active Esvin PAULA Active MOBIC 15 MG TABS 1 tab daily MELOXICAM 56652105468 No Longer Active Esvin PAULA Active LISINOPRIL 20 MG TABS Take 1 tablet by mouth daily LISINOPRIL 96966336182 No Longer Active Esvin PAULA Active DICLOFENAC SODIUM 50 MG TBEC 1 tablet by mouth four times daily DICLOFENAC SODIUM 58832317455 No Longer Active Paula Cooney RN Active VERAMYST 27.5 MCG/SPRAY SUSP 2 spray each nare daily FLUTICASONE FUROATE 84875480177 No Longer Active Meganbarbra Vargas RN Active ENDOCET 10-325 MG TABS Take one (1) tablet by mouth three times a day OXYCODONE-ACETAMINOPHEN 83142342350 Active Wily Gonzalez DO Active ALPRAZOLAM 2 MG TABS Take one (1) tablet by mouth three times a day ALPRAZOLAM 15457637298 Active Wily Gonzalez DO Active NEXIUM 40 MG CPDR 1 cap by mouth daily ESOMEPRAZOLE MAGNESIUM 40377163097 No Longer Active Esvin PAULA Active ALPRAZOLAM 2 MG TABS 1 tablet by mouth three times daily as needed ALPRAZOLAM 45692142379 No Longer Active Esvin PAULA Active HYDROXYZINE HCL 25 MG TAB take 1 every 4-6 hours as needed 07/01 HYDROXYZINE HCL 99067363021 No Longer Active Esvin PAULA Active ENDOCET 10-325 MG TABS 1 by mouth twice a day OXYCODONE-ACETAMINOPHEN 94505681287 No Longer Active Esvin PAULA Active MS CONTIN 100 MG QA89S-NIX 1 by mouth twice a day MORPHINE SULFATE 34393038749 No Longer Active Esvin PAULA Active SUDAFED 30 MG TAB 1-2 every 4-6 hours as needed PSEUDOEPHEDRINE HCL 57616689284 Active Marylou Melissa RPT,RMA Active VERAMYST 27.5 MCG/SPRAY SUSP 2 spray each nare daily VERAMYST 27.5 MCG/SPRAY SUSP FLUTICASONE FUROATE Inactive DICLOFENAC SODIUM 50 MG TBEC 1 tablet by mouth four times daily DICLOFENAC SODIUM 50 MG TBEC 289335 DICLOFENAC SODIUM Inactive LISINOPRIL 20 MG TABS Take 1 tablet by mouth daily LISINOPRIL 20 MG TABS 222711 LISINOPRIL Inactive MOBIC 15 MG TABS 1 tab daily MOBIC 15 MG TABS 854091 MELOXICAM Inactive NEXIUM 40 MG CPDR 1 cap daily NEXIUM 40 MG CPDR 605168 ESOMEPRAZOLE MAGNESIUM Inactive CELEBREX 200 MG CAPS 1 tablet by mouth twice daily with meals CELEBREX 200 MG CAPS 771894 CELECOXIB Inactive FLEXERIL 10 MG TAB 1 [...] a day 05/05 AMOXICILLIN 500 MG CAPS 367207 AMOXICILLIN Inactive ZIAC 2.5-6.25 MG TAB 1 tablet every morning for high blood pressure ZIAC 2.5-6.25 MG TAB 598593 BISOPROLOL-HCTZ Inactive ZIAC 2.5-6.25 MG TAB 1 tablet daily for high blood pressure 10/27 ZIAC 2.5-6.25 MG TAB 120712 BISOPROLOL-HCTZ Inactive HYDROXYZINE HCL 25 MG TABS Take one (1) tablet by mouth twice a day HYDROXYZINE HCL 25 MG TABS 718446 HYDROXYZINE HCL Inactive ANUSOL-HC 25 MG SUPPOSITORY 1 rectally every 12 hours for irritation ANUSOL-HC 25 MG SUPPOSITORY 4433349 HYDROCORTISONE NAEL (RECTAL ) Inactive HYDROXYZINE HCL 25 MG TAB 1 two times a day as needed for anxiety HYDROXYZINE HCL 25 MG TAB 403026 HYDROXYZINE HCL Inactive FLOMAX 0.4 MG CAPS 1 capsule in the evening for night time urination. FLOMAX 0.4 MG CAPS 115332 TAMSULOSIN HCL Inactive CLEMASTINE FUMARATE 1.34 MG ORAL TABS 1 tab PO BID CLEMASTINE FUMARATE 1.34 MG ORAL TABS 345825 CLEMASTINE FUMARATE Inactive POLY-IRON 150 150 MG CAPS 1 tab po bid POLY-IRON 150 150 MG CAPS POLYSACCHARIDE IRON COMPLEX Inactive NYSTATIN 440252 UNIT/GM CREA apply to rash TID PRN NYSTATIN 788050 UNIT/GM CREA 208121 NYSTATIN Inactive JUOKFGP-HLCYRFRRT-IAAO 167-83-8 MG TABS 1 tab po daily FZGLUOE-ZJPYVYLAR-ECJP 167-83-8 MG TABS VNWESRN-DLXKTFXHU-DAOW Inactive MS CONTIN 100 MG ER70R-FPV 1 by mouth twice a day MS CONTIN 100 MG PZ11A-VOB MORPHINE SULFATE Inactive ENDOCET 10-325 MG TABS 1 by mouth twice a day ENDOCET 10-325 MG TABS 1114222 OXYCODONE-ACETAMINOPHEN Inactive HYDROXYZINE HCL 25 MG TAB take 1 every 4-6 hours as needed 07/01 HYDROXYZINE HCL 25 MG TAB 682693 HYDROXYZINE HCL Inactive ALPRAZOLAM 2 MG TABS 1 tablet by mouth three times daily as needed ALPRAZOLAM 2 MG TABS 653162 ALPRAZOLAM Inactive NEXIUM 40 MG CPDR 1 cap by mouth daily NEXIUM 40 MG CPDR 087911 ESOMEPRAZOLE MAGNESIUM Inactive Advance Directives Directive Description [...] ... - Chemistry sodium, serum 140 mmol/L 724-513 1005/03/25 carbon dioxide, venous blood 31.3 mmol/L 21.0-32.0 potassium, serum 4.0 mmol/L 3.5-5.2 chloride, serum 101 mmol/L 98-107 blood glucose 96 mg/dL 65-110 urea nitrogen, blood 7 mg/dL 7-18 creatinine, serum 0.94 mg/dL 0.55-1.30 alanine aminotransferase (SGPT), serum 23 U/L 12-78 aspartate aminotransferase (SGOT), serum 21 U/L 15-37 calcium, serum 8.9 mg/dL 8.5-10.1 bilirubin, serum, total 0.30 mg/dL 0.00-1.00 cholesterol, serum 169 mg/dL 643-945 0655/03/25 triglyceride, serum, fasting 143 mg/dL 30-200 HDL [...] 5.0-8.5 Encounters Code Encounter Date Provider Facility CPT-01779 Level 3 Est. Patient 09:51:37 [employer] Wily Gonzalez [facility] CPT-34083 Level 3 Est. Patient 11:07:48 CDT Wily Gonzalez [facility] CPT-20577 Level 3 Est. Patient 11:24:24 CDT Wily Gonzalez [facility] CPT-43438 Level 3 Est. Patient 15:19:54 [employer] Wily Gonzalez [facility] CPT-37764 Level 3 Est. Patient 10:04:45 CDT Wily Gonzalez [facility] CPT-77801 Level 3 Est. Patient 13:04:06 CDT Wily Gonzalez [facility] CPT-93482 Level 3 Est. Patient 12:23:04 CDT Wily Gonzalez [facility] CPT-72202 Level 3 Est. Patient 15:43:10 [employer] Wily Gonzalez [facility] CPT-00494 Level 3 Est. Patient 16:10:54 CDT Wily Gonzalez [facility] CPT-31627 Level 3 Est. Patient 19:50:51 CDT Wily Gonzalez [facility] CPT-19590 Level 3 Est. Patient 12:02:30 [employer] Wily Gonzalez [facility] CPT-25615 Level 3 Est. Patient 12:03:11 [employer] Wily Gonzalez [facility] CPT-70695 Level 3 Est. Patient 12:01:41 [employer] Wily Gonzalez [facility] CPT-31008 Level 3 Est. Patient 11:51:24 [employer] Wily Gonzalez [facility] CPT-63676 Level 3 Est. Patient 11:58:20 [employer] Wily Gonzalez [facility] CPT-29047 Level 3 Est. Patient 08:31:36 [employer] Wily Gonzalez [facility] CPT-81591 Level 3 Est. Patient 21:57:36 CDT Wily Gonzalez [facility] CPT-55317 Level 3 Est. Patient 10:49:58 CDT Esvin PAULA [facility] CPT-60452 Level 3 Est. Patient 11:22:52 CDT Esvin PAULA [facility] CPT-52355 Level 3 Est. Patient 13:49:41 CDT Esvin PAULA [facility] CPT-68157 Level 3 Est. Patient 11:54:53 CDT Esvin PAULA [facility] CPT-43537 Level 3 Est. Patient 09:07:11 CDT Esvin PAULA [facility] CPT-86134 Level 3 Est. Patient 13:52:47 CDT Esvin PAULA [facility] CPT-28242 Level 3 Est. Patient 11:26:46 CDT Esvin PAULA [facility] CPT-71254 Level 3 Est. Patient 10:25:00 [employer] Esvin PAULA [facility] CPT-64461 Level 3 Est. Patient 11:39:11 [employer] Esvin PAULA [facility] CPT-78392 Level 3 Est. Patient 13:24:24 [employer] Esvin Hudson CH[facility] CPT-88105 Level 3 Est. Patient 10:26:13 [employer] Esvin Hudson [facility] CPT-66542 Level 3 Est. Patient 10:21:21 CDT Esvin Hudson [facility] CPT-05839 Level 3 Est. Patient 10:26:30 CDT Esvin Hudson [facility] CPT-90785 Level 3 Est. Patient 09:16:37 CDT Esvin Hudson [facility]-73718 Level 3 Est. Patient 09:06:58 CDT Esvin Hudson [facility] CPT-85237 Level 3 Est. Patient 10:05:29 CDT Esvin Hudson [facility] CPT-98887 Level 3 Est. Patient 10:38:45 CDT Esvin Hudson [facility] CPT-83974 Level 3 Est. Patient 10:09:45 CDT Esvin Hudson [facility] CPT-88740 Level 3 Est. Patient 09:26:37 CDT Esvin Hudson [facility] CPT-76264 Level 3 Est. Patient 10:34:42 [employer] Esvin Hudson [facility] CPT-90729 Level 3 Est. Patient 10:45:47 [employer] Esvin Tristan [facility] CPT-64232 Level 3 Est. Patient 10:45:22 [employer]ARD Esvin Tristan [facility]-59292 Level 3 Est. Patient 14:18:30 [employer]EL[employer]ARD Esvin Tristan PA [facility] CPT-82736 Level 3 Est. Patient 13:53:29 [employer] Esvin PAULA [facility] CPT-18362 Level 3 Est. Patient 10:34:11 CDT Esvin Hudson [facility] Procedures Code Procedure Name Date Entry Date Standard Description CPT-19107 LS spine AP and Lat - XRAY USE ONLY 10:07:43 [employer] 10/26 CPT-31158 Venipuncture Draw Fee 09:51:16 [employer] CPT-88160 Smoking Cessation counseling 09:39:47 [employer] CPT-G0438 Initial Annual Wellness Exam 09:37:28 [employer] CPT-84499 Venipuncture Draw Fee 09:26:55 CDT CPT-34926 Venipuncture Draw Fee 11:55:52 CDT CPT-97261 Spec Collection and Handling Fee 09:16:37 CDT CPT-01989 Venipuncture Draw Fee 09:16:37 CDT
--- OUTSIDE RECORDS SUMMARY | 2018-02-26 15:52 | XMS REPORT | Clinical Summary ---
Author Author Admin, E Organization [facility] Address Unknown Phone Unavailable Allergies, Adverse [...] TABLET 1 twice a day VARENICLINE TARTRATE 10894983655 No Longer Active Wily Gonzalez DO Active RAUL-MAG 500-250 MG ORAL TABLET Take one by mouth daily CALCIUM -MAGNESIUM 11210202537 Active Wily Gonzalez DO Active FOSAMAX 70 MG ORAL TABLET 1 po qweek. Take 30min prior to first food/drink. Avoid lying down x 1 hour. ALENDRONATE SODIUM 88601122408 Active Laurie Latham LPN Active CALCIUM 600 MG ORAL TABLET 1 po q day CALCIUM 75196887235 Active Rose Bang Active TRIAMCINOLONE ACETONIDE 0.1 % EXTERNAL CREAM Apply to affected area 3 times daily for up to 2 weeks TRIAMCINOLONE ACETONIDE 23576588357 Active Wily Gonzalez DO Active [id number]-[id number]-NXGL 167-83-8 MG ORAL TABLET 1 tab po daily JPHPOIH-VORQQOMUH-TPAN 17790028863 No Longer Active Wily Gonzalez DO Active NYSTATIN 802889 UNIT/GM EXTERNAL CREAM apply to rash TID PRN 2015 NYSTATIN 62016534969 No Longer Active Wily Gonzalez DO Active POLY-IRON 150 150 MG ORAL CAPSULE 1 tab po bid POLYSACCHARIDE IRON COMPLEX 17430696261 No Longer Active Wily Gonzalez DO Active FLONASE ALLERGY RELIEF 50 MCG/ACT NASAL SUSPENSION 2 sprays each nostril every day FLUTICASONE PROPIONATE 45295228475 Active Wily Gonzalez DO Active CLEMASTINE FUMARATE 1.34 MG ORAL TABLET 1 tab PO BID CLEMASTINE FUMARATE 91931346648 No Longer Active Wily Gonzalez DO Active FLOMAX 0.4 MG ORAL CAPSULE 1 capsule in the evening for night time urination. TAMSULOSIN HCL 48987773259 No Longer Active Wily Gonzalez DO Active PROTONIX 40 MG ORAL TABLET DELAYED RELEASE 1 po daily PANTOPRAZOLE SODIUM 34060627809 Active Lisa Berkowitz Active HYDROXYZINE HCL 25 MG ORAL TABLET 1 two times a day as needed for anxiety HYDROXYZINE HCL 20020864082 No Longer Active Wily Gonzalez DO Active ANUSOL-HC 25 MG RECTAL SUPPOSITORY 1 rectally every 12 hours for irritation HYDROCORTISONE NAEL (RECTAL) 54232568128 No Longer Active Wily Gonzalez DO Active HYDROXYZINE HCL 25 MG ORAL TABLET Take one (1) tablet by mouth twice a day HYDROXYZINE HCL 07391740380 No Longer Active Wily Gonzalez DO Active ZIAC 2.5-6.25 MG ORAL TABLET 1 tablet daily for high blood pressure BISOPROLOL-HCTZ 37416819192 No Longer Active Wily Gonzalez DO Active ZIAC 2.5-6.25 MG ORAL TABLET 1 tablet every morning for high blood pressure BISOPROLOL-HCTZ 02215243917 No Longer Active Wily Gonzalez DO Active AMOXICILLIN 500 MG ORAL CAPSULE Take one (1) tablet by mouth three times a day AMOXICILLIN 13897757006 No Longer Active Wily Gonzalez DO Active MORPHINE SULFATE ER 100 MG ORAL TABLET EXTENDED RELEASE Take one (1) tablet by mouth twice a day MORPHINE SULFATE 18120451285 No Longer Active Wily Gonzalez DO Active MORPHINE SULFATE ER 100 MG ORAL CAPSULE EXTENDED RELEASE 24 HOUR 1 capsule twice daily for chronic pain MORPHINE SULFATE 33131544980 Active Laurie Latham LPN Active CIALIS 10 MG ORAL TABLET 1 every 72 hours as needed TADALAFIL 30698501762 No Longer Active Esvin PAULA Active FLONASE 50 MCG/ACT NASAL SUSPENSION 2 SPRAY EACH NARE DAILY 05/08 FLUTICASONE PROPIONATE 71709647944 No Longer Active Esvin PAULA Active CYCLOBENZAPRINE HCL 10 MG ORAL TABLET Take one (1) tablet by mouth three times a day CYCLOBENZAPRINE HCL 74420298535 Active Rose Bang Active OPANA ER 40 MG ORAL TABLET ER 12 HOUR ABUSE-DETERRENT Take one (1) tablet by mouth twice a day OXYMORPHONE HCL 53281215007 No Longer Active Esvin PAULA Active PROAIR HFA 108 (90 Base) MCG/ACT INHALATION AEROSOL SOLUTION 2 puffs every four hours as needed ALBUTEROL SULFATE 32816861348 No Longer Active Esvin PUALA Active CLEARLAX ORAL POWDER 17gm q day prn constipation POLYETHYLENE GLYCOL 3350 34751089017 Active Wily Gonzalez DO Active MORPHINE SULFATE ER 100 MG ORAL CAPSULE EXTENDED RELEASE 24 HOUR Take one (1) tablet by mouth twice a day MORPHINE SULFATE 93643587265 No Longer Active Esvin PAULA Active FLEXERIL 10 MG TAB 1 tablet by mouth 3 times daily as needed CYCLOBENZAPRINE HCL 02381495435 No Longer Active Esvin PAULA Active CELEBREX 200 MG ORAL CAPSULE 1 tablet by mouth twice daily with meals 2012 CELECOXIB 99102725986 No Longer Active Esvin PAULA Active NEXIUM 40 MG ORAL CAPSULE DELAYED RELEASE 1 cap daily ESOMEPRAZOLE MAGNESIUM 81218701752 No Longer Active Esvin PAULA Active MOBIC 15 MG ORAL TABLET 1 tab daily MELOXICAM 25528723557 No Longer Active Esvin PAULA Active LISINOPRIL 20 MG ORAL TABLET Take 1 tablet by mouth daily LISINOPRIL 80641145142 No Longer Active Esvin PAULA Active DICLOFENAC SODIUM 50 MG ORAL TABLET DELAYED RELEASE 1 tablet by mouth four times daily DICLOFENAC SODIUM 01026054016 No Longer Active Paula Cooney RN Active VERAMYST 27.5 MCG/SPRAY NASAL SUSPENSION 2 spray each nare daily FLUTICASONE FUROATE 45433674781 No Longer Active Megan Vargas RN Active ENDOCET 10-325 MG ORAL TABLET Take one (1) tablet by mouth three times a day OXYCODONE-ACETAMINOPHEN 24409298359 Active Laurie Latham LPN Active ALPRAZOLAM 2 MG ORAL TABLET Take one (1) tablet by mouth three times a day ALPRAZOLAM 47028997992 Active Wily Gonzalez DO Active NEXIUM 40 MG ORAL CAPSULE DELAYED RELEASE 1 cap by mouth daily ESOMEPRAZOLE MAGNESIUM 87648142438 No Longer Active Esvin PAULA Active ALPRAZOLAM 2 MG ORAL TABLET 1 tablet by mouth three times daily as needed ALPRAZOLAM 82772444900 No Longer Active Esvin PAULA Active HYDROXYZINE HCL 25 MG ORAL TABLET take 1 every 4-6 hours as needed HYDROXYZINE HCL 17264055704 No Longer Active Esvin PAULA Active ENDOCET 10-325 MG ORAL TABLET 1 by mouth twice a day OXYCODONE-ACETAMINOPHEN 18630063484 No Longer Active Esvin PAULA Active MS CONTIN 100 MG ORAL TABLET EXTENDED RELEASE 1 by mouth twice a day MORPHINE SULFATE 20956470288 No Longer Active Esvin PAULA Active SUDAFED 30 MG ORAL TABLET 1-2 every 4-6 hours as needed PSEUDOEPHEDRINE HCL 87075368976 Active Rose Bang Active VERAMYST 27.5 MCG/SPRAY NASAL SUSPENSION 2 spray each nare daily VERAMYST 27.5 MCG/SPRAY NASAL SUSPENSION FLUTICASONE FUROATE Inactive DICLOFENAC SODIUM 50 MG ORAL TABLET DELAYED RELEASE 1 tablet by mouth four times daily DICLOFENAC SODIUM 50 MG ORAL TABLET DELAYED RELEASE 068840 DICLOFENAC SODIUM Inactive LISINOPRIL 20 MG ORAL TABLET Take 1 tablet by mouth daily LISINOPRIL 20 MG ORAL TABLET 334267 LISINOPRIL Inactive MOBIC 15 MG ORAL TABLET 1 tab daily MOBIC 15 MG ORAL TABLET 808479 MELOXICAM Inactive NEXIUM 40 MG ORAL CAPSULE DELAYED RELEASE 1 cap daily NEXIUM 40 MG ORAL CAPSULE DELAYED RELEASE 066319 ESOMEPRAZOLE MAGNESIUM Inactive CELEBREX 200 MG ORAL CAPSULE 1 tablet by mouth twice daily with meals 2012 CELEBREX 200 MG ORAL CAPSULE 227319 CELECOXIB Inactive FLEXERIL 10 MG TAB 1 [...] DAILY 05/08 FLONASE 50 MCG/ACT NASAL SUSPENSION 3620094 FLUTICASONE PROPIONATE Inactive CIALIS 10 MG ORAL [...] a day AMOXICILLIN 500 MG ORAL CAPSULE 220652 AMOXICILLIN Inactive ZIAC 2.5-6.25 MG ORAL TABLET 1 tablet every morning for high blood pressure ZIAC 2.5-6.25 MG ORAL TABLET 769791 BISOPROLOL-HCTZ Inactive ZIAC 2.5-6.25 MG ORAL TABLET 1 tablet daily for high blood pressure ZIAC 2.5-6.25 MG ORAL TABLET 670491 BISOPROLOL-HCTZ Inactive HYDROXYZINE HCL 25 MG ORAL TABLET Take one (1) tablet by mouth twice a day HYDROXYZINE HCL 25 MG ORAL TABLET 037224 HYDROXYZINE HCL Inactive ANUSOL-HC 25 MG RECTAL SUPPOSITORY 1 rectally every 12 hours for irritation ANUSOL-HC 25 MG RECTAL SUPPOSITORY 7783576 HYDROCORTISONE NAEL (RECTAL) Inactive HYDROXYZINE HCL 25 MG ORAL TABLET 1 two times a day as needed for anxiety HYDROXYZINE HCL 25 MG ORAL TABLET 104634 HYDROXYZINE HCL Inactive FLOMAX 0.4 MG ORAL CAPSULE 1 capsule in the evening for night time urination. FLOMAX 0.4 MG ORAL CAPSULE 926646 TAMSULOSIN HCL Inactive CLEMASTINE FUMARATE 1.34 MG ORAL TABLET 1 tab PO BID CLEMASTINE FUMARATE 1.34 MG ORAL TABLET 040205 CLEMASTINE FUMARATE Inactive POLY-IRON 150 150 MG ORAL CAPSULE 1 tab po bid POLY-IRON 150 150 MG ORAL CAPSULE 825044 POLYSACCHARIDE IRON COMPLEX Inactive NYSTATIN 858807 UNIT/GM EXTERNAL CREAM apply to rash TID PRN 2015 NYSTATIN 397997 UNIT/GM EXTERNAL CREAM 470035 NYSTATIN Inactive LPTGUJH-HZYJDKOSR-CWAO 167-83-8 MG ORAL TABLET 1 tab po daily GIMHQYT-CQOVRBWGY-TJDM 167-83-8 MG ORAL TABLET 27176541032 CALCIUM -MAGNESIUM-ZINC Inactive CHANTIX 1 MG ORAL TABLET 1 twice a day CHANTIX 1 MG ORAL TABLET VARENICLINE TARTRATE Inactive MS CONTIN 100 MG ORAL TABLET EXTENDED RELEASE 1 by mouth twice a day MS CONTIN 100 MG ORAL TABLET EXTENDED RELEASE MORPHINE SULFATE Inactive ENDOCET 10-325 MG ORAL TABLET 1 by mouth twice a day ENDOCET 10-325 MG ORAL TABLET 5020550 OXYCODONE-ACETAMINOPHEN Inactive HYDROXYZINE HCL 25 MG ORAL TABLET take 1 every 4-6 hours as needed HYDROXYZINE HCL 25 MG ORAL TABLET 207380 HYDROXYZINE HCL Inactive ALPRAZOLAM 2 MG ORAL TABLET 1 tablet by mouth three times daily as needed ALPRAZOLAM 2 MG ORAL TABLET 298615 ALPRAZOLAM Inactive NEXIUM 40 MG ORAL CAPSULE DELAYED RELEASE 1 cap by mouth daily NEXIUM 40 MG ORAL CAPSULE DELAYED RELEASE 960438 ESOMEPRAZOLE MAGNESIUM Inactive Advance Directives Directive Description [...] Measured Encounters Code Encounter Date Provider Facility CPT-17642 Level 4 Est. Patient 12:51:46 CDT Wily Zhang [facility] CPT-09361 Level 4 Est. Patient 10:10:03 CDT Wily Zhang [facility] CPT-37659 Level 3 Est. Patient 14:25:57 CDT Wily Zhang [facility] CPT-72841 Level 3 Est. Patient 09:51:37 [employer] Wily Zhang [facility] CPT-13467 Level 3 Est. Patient 11:07:48 CDT Wily Zhang [facility] CPT-95261 Level 3 Est. Patient 11:24:24 CDT Wily Zhang [facility] CPT-90240 Level 3 Est. Patient 15:19:54 [employer] Wily Gonzalez [facility] CPT-28977 Level 3 Est. Patient 10:04:45 CDT Wily Gonzalez [facility] CPT-63849 Level 3 Est. Patient 13:04:[address] [facility] CPT-58850 Level 3 Est. Patient 12:23:[address] [facility] CPT-82784 Level 3 Est. Patient 15:43:10 [employer] Wily Gonzalez [facility] CPT-10408 Level 3 Est. Patient 16:10:[address] [facility] CPT-49560 Level 3 Est. Patient 19:50:51 CDT Wily Gonzalez [facility] CPT-64789 Level 3 Est. Patient 12:02:30 [employer] Wily Gonzalez [facility] CPT-55971 Level 3 Est. Patient 12:03:11 [employer] Wily Gonzalez [facility] CPT-99927 Level 3 Est. Patient 12:01:41 [employer] Wily Gonzalez [facility] CPT-65060 Level 3 Est. Patient 11:51:24 [employer] Wily Gonzalez [facility] CPT-64792 Level 3 Est. Patient 11:58:20 [employer] Wily Gonzalez [facility] CPT-47356 Level 3 Est. Patient 08:31:36 [employer] Wily Gonzalez [facility] CPT-14178 Level 3 Est. Patient 21:57:36 CDT Wily Gonzalez [facility] CPT-30689 Level 3 Est. Patient 10:49:58 CDT Esvin [facility] CPT-47774 Level 3 Est. Patient 11:22:52 CDT Esvin [facility] CPT-52317 Level 3 Est. Patient 13:49:41 CDT Esvin [facility] CPT-45659 Level 3 Est. Patient 11:54:53 CDT Esvin PAULA [facility] CPT-02707 Level 3 Est. Patient 09:07:11 CDT Esvin [facility] CPT-55097 Level 3 Est. Patient 13:52:47 CDT Esvin PAULA [facility] CPT-01501 Level 3 Est. Patient 11:26:46 CDT Esvin [facility] CPT-62977 Level 3 Est. Patient 10:25:00 [employer] Esvin PAULA [facility] CPT-73657 Level 3 Est. Patient 11:39:11 [employer] Esvin PAULA [facility] CPT-64458 Level 3 Est. Patient 13:24:24 [employer] Esvin PAULA [facility] CPT-10527 Level 3 Est. Patient 10:26:13 [employer] Esvin PAULA [facility] CPT-13032 Level 3 Est. Patient 10:21:21 CDT Esvin Tristan PA [facility] CPT-69067 Level 3 Est. Patient 10:26:30 CDT Esvin PAULA [facility] CPT-51965 Level 3 Est. Patient 09:16:37 CDT Esvin PAULA [facility] CPT-71382 Level 3 Est. Patient 09:06:58 CDT Esvin PAULA [facility] CPT-19739 Level 3 Est. Patient 10:05:29 CDT Esvin PAULA [facility] CPT-58716 Level 3 Est. Patient 10:38:45 CDT Esvin PAULA [facility] CPT-79457 Level 3 Est. Patient 10:09:45 CDT Esvin PAULA [facility] CPT-28949 Level 3 Est. Patient 09:26:37 CDT Esvin PAULA [facility] CPT-52776 Level 3 Est. Patient 10:34:42 [employer] Esvin PAULA [facility] CPT-17595 Level 3 Est. Patient 10:45:47 [employer] Esvin PAULA [facility] CPT-80133 Level 3 Est. Patient 10:45:22 [employer] Esvin PAULA [facility] CPT-72580 Level 3 Est. Patient 14:18:30 [employer] Esvin [facility] CPT-40325 Level 3 Est. Patient 13:53:29 [employer] Esvin [facility] CPT-23184 Level 3 Est. Patient 10:34:11 CDT Esvin [facility] Procedures Code Procedure Name Date Entry Date Standard Description CPT-58604 Smoking Cessation counseling 10:10:03 CDT CPT-34066 Smoking Cessation counseling 14:25:57 CDT CPT-19939 Bone Density - XRAY USE ONLY 11:29:32 CDT CPT-66102 LS spine AP and Lat - XRAY USE ONLY 10:07:43 [employer] 10/26 CPT-35146 Venipuncture Draw Fee 09:51:16 [employer] CPT-32724 Smoking Cessation counseling 09:39:47 [employer] CPT-G0438 Initial Annual Wellness Exam 09:37:28 [employer] CPT-74913 Venipuncture Draw Fee 09:26:55 CDT CPT-72021 Venipuncture Draw Fee 11:55:52 CDT CPT-80362 Spec Collection and Handling Fee 09:16:37 CDT CPT-05639 Venipuncture Draw Fee 09:16:37 CDT
--- OUTSIDE RECORDS SUMMARY | 2018-02-26 15:53 | XMS REPORT | Clinical Summary ---
Author Author Admin, E Organization [employer] Address Unknown Phone Unavailable Allergies, Adverse Reactions, [...] DO U T I ICD-599.0 Inactive Wily Vicente Gonzalez DO U R I ICD-465.9 Inactive Wily Vicente Gonzalez DO FH DIABETES ICD-V18.0 Inactive Wily iVcente Gonzalez DO Tinea corporis ICD-110.5 Inactive Wily Vicente Gonzalez DO Medication List Medication Instructions Start Date Stop Date Generic Name [facility] Status Provider Patient Instruction CHANTIX 1 MG TABS 1 twice a day VARENICLINE TARTRATE 16149205817 No Longer Active Wily Gonzalez DO Active RAUL-MAG 500-250 MG ORAL TABS Take one by mouth daily CALCIUM- MAGNESIUM 36313205101 Active Wily Gonzalez DO Active FOSAMAX 70 MG TABS 1 po qweek. Take 30min prior to first food/drink. Avoid lying down x 1 hour. ALENDRONATE SODIUM 40169471979 Active Rose Bang Active CALCIUM 600 MG ORAL TABS 1 po q day CALCIUM 28608107520 Active Rose Bang Active TRIAMCINOLONE ACETONIDE 0.1 % CREA Apply to affected area 3 times daily for up to 2 weeks TRIAMCINOLONE ACETONIDE 14528091108 Active Wily Gonzalez DO Active [id number] 167-83-8 MG TABS 1 tab po daily HORJWYE-KPJYGTPJH-ODHC 73128446209 No Longer Active Wily Gonzalez DO Active NYSTATIN 154410 UNIT/GM CREA apply to rash TID PRN NYSTATIN 34308707101 No Longer Active Wily Gonzalez DO Active POLY-IRON 150 150 MG CAPS 1 tab po bid POLYSACCHARIDE IRON COMPLEX 62193125702 No Longer Active Wily Gonzalez DO Active FLONASE ALLERGY RELIEF 50 MCG/ACT NASAL SUSP 2 sprays each nostril every day FLUTICASONE PROPIONATE 42688103775 Active Jodi Lucas APRN Active CLEMASTINE FUMARATE 1.34 MG ORAL TABS 1 tab PO BID CLEMASTINE FUMARATE 34121697224 No Longer Active Wily Gonzalez DO Active FLOMAX 0.4 MG CAPS 1 capsule in the evening for night time urination. TAMSULOSIN HCL 63439881442 No Longer Active Wily Gonzalez DO Active PROTONIX 40 MG TBEC 1 po daily PANTOPRAZOLE SODIUM 76557242855 Active Agnieszka Yeung Active HYDROXYZINE HCL 25 MG TAB 1 two times a day as needed for anxiety HYDROXYZINE HCL 91413647535 No Longer Active Wily Gonzalez DO Active ANUSOL-HC 25 MG SUPPOSITORY 1 rectally every 12 hours for irritation HYDROCORTISONE NAEL (RECTAL) 65276605282 No Longer Active Wily Gonzalez DO Active HYDROXYZINE HCL 25 MG TABS Take one (1) tablet by mouth twice a day HYDROXYZINE HCL 17327859798 No Longer Active Wily Gonzalez DO Active ZIAC 2.5-6.25 MG TAB 1 tablet daily for high blood pressure 10/27 BISOPROLOL-HCTZ 89565452228 No Longer Active Wily Gonzalez DO Active ZIAC 2.5-6.25 MG TAB 1 tablet every morning for high blood pressure BISOPROLOL-HCTZ 24969418967 No Longer Active Wily Gonzalez DO Active AMOXICILLIN 500 MG CAPS Take one (1) tablet by mouth three times a day 05/05 AMOXICILLIN 79427245598 No Longer Active Wily Gonzalez DO Active MORPHINE SULFATE ER 100 MG CR-TABS Take one (1) tablet by mouth twice a day MORPHINE SULFATE 58240285860 No Longer Active Wily Gonzalez DO Active MORPHINE SULFATE ER 100 MG [id number] 1 capsule twice daily for chronic pain MORPHINE SULFATE 26412844466 Active iLsa Berkowitz Active CIALIS 10 MG TABS 1 every 72 hours as needed TADALAFIL 28849442404 No Longer Active Esvin PAULA Active FLONASE 50 MCG/ACT SUSP 2 SPRAY EACH NARE DAILY FLUTICASONE PROPIONATE 36219087871 No Longer Active Esvin PAULA Active CYCLOBENZAPRINE HCL 10 MG TABS Take one (1) tablet by mouth three times a day CYCLOBENZAPRINE HCL 32164397620 Active Lisa Berkowitz Active OPANA ER (CRUSH RESISTANT) 40 MG [id number]-QHM Take one (1) tablet by mouth twice a day OXYMORPHONE HCL 56965969299 No Longer Active Esvin PAULA Active PROAIR HFA 108 (90 BASE) MCG/ACT AERS 2 puffs every four hours as needed ALBUTEROL SULFATE 05381350118 No Longer Active Esvin PAULA Active CLEARLAX POWD 17gm q day prn constipation POLYETHYLENE GLYCOL 3350 14758261414 Active Wily Gonzalez DO Active MORPHINE SULFATE ER 100 MG [id number] Take one (1) tablet by mouth twice a day MORPHINE SULFATE 71689038511 No Longer Active Esvin PAULA Active FLEXERIL 10 MG TAB 1 tablet by mouth 3 times daily as needed CYCLOBENZAPRINE HCL 67263688142 No Longer Active Esvin PAULA Active CELEBREX 200 MG CAPS 1 tablet by mouth twice daily with meals CELECOXIB 84154900209 No Longer Active Esvin PAULA Active NEXIUM 40 MG CPDR 1 cap daily ESOMEPRAZOLE MAGNESIUM 84279542041 No Longer Active Esvin PAULA Active MOBIC 15 MG TABS 1 tab daily MELOXICAM 29275380794 No Longer Active Esvin PAULA Active LISINOPRIL 20 MG TABS Take 1 tablet by mouth daily LISINOPRIL 71275668107 No Longer Active Esvin PAULA Active DICLOFENAC SODIUM 50 MG TBEC 1 tablet by mouth four times daily DICLOFENAC SODIUM 47652570196 No Longer Active Paula Cooney RN Active VERAMYST 27.5 MCG/SPRAY SUSP 2 spray each nare daily FLUTICASONE FUROATE 42542264264 No Longer Active Megan Vargas RN Active ENDOCET 10-325 MG TABS Take one (1) tablet by mouth three times a day OXYCODONE-ACETAMINOPHEN 84918177204 Active Lisa Berkowitz Active ALPRAZOLAM 2 MG TABS Take one (1) tablet by mouth three times a day ALPRAZOLAM 42337283381 Active Lisa Berkowitz Active NEXIUM 40 MG CPDR 1 cap by mouth daily ESOMEPRAZOLE MAGNESIUM 17451314802 No Longer Active Esvin PAULA Active ALPRAZOLAM 2 MG TABS 1 tablet by mouth three times daily as needed ALPRAZOLAM 78662420632 No Longer Active Esvin PAULA Active HYDROXYZINE HCL 25 MG TAB take 1 every 4-6 hours as needed 07/01 HYDROXYZINE HCL 37337608659 No Longer Active Esvin PAULA Active ENDOCET 10-325 MG TABS 1 by mouth twice a day OXYCODONE-ACETAMINOPHEN 91752567847 No Longer Active Esvin PAULA Active MS CONTIN 100 MG [id number] 1 by mouth twice a day MORPHINE SULFATE 24109748588 No Longer Active Esvin PAULA Active SUDAFED 30 MG TAB 1-2 every 4-6 hours as needed PSEUDOEPHEDRINE HCL 74019371661 Active Rose Bang Active VERAMYST 27.5 MCG/SPRAY SUSP 2 spray each nare daily VERAMYST 27.5 MCG/SPRAY SUSP FLUTICASONE FUROATE Inactive DICLOFENAC SODIUM 50 MG TBEC 1 tablet by mouth four times daily DICLOFENAC SODIUM 50 MG TBEC 798572 DICLOFENAC SODIUM Inactive LISINOPRIL 20 MG TABS Take 1 tablet by mouth daily LISINOPRIL 20 MG TABS 694104 LISINOPRIL Inactive MOBIC 15 MG TABS 1 tab daily MOBIC 15 MG TABS 327591 MELOXICAM Inactive NEXIUM 40 MG CPDR 1 cap daily NEXIUM 40 MG CPDR 474169 ESOMEPRAZOLE MAGNESIUM Inactive CELEBREX 200 MG CAPS 1 tablet by mouth twice daily with meals CELEBREX 200 MG CAPS 725335 CELECOXIB Inactive FLEXERIL 10 MG TAB 1 tablet by mouth 3 times daily as needed FLEXERIL 10 MG TAB CYCLOBENZAPRINE HCL Inactive PROAIR HFA 108 (90 BASE) MCG/ACT AERS 2 puffs every four hours as needed PROAIR HFA 108 (90 BASE) MCG/ACT AERS ALBUTEROL SULFATE Inactive FLONASE 50 MCG/ACT SUSP 2 SPRAY EACH NARE DAILY FLONASE 50 MCG/ACT SUSP 7181799 FLUTICASONE PROPIONATE Inactive CIALIS 10 MG TABS 1 every 72 hours as needed CIALIS 10 MG TABS TADALAFIL Inactive MORPHINE SULFATE ER 100 MG CR-TABS Take one (1) tablet by mouth twice a day MORPHINE SULFATE ER 100 MG CR-TABS MORPHINE SULFATE Inactive AMOXICILLIN 500 MG CAPS Take one (1) tablet by mouth three times a day 05/05 AMOXICILLIN 500 MG CAPS 953823 AMOXICILLIN Inactive ZIAC 2.5-6.25 MG TAB 1 tablet every morning for high blood pressure ZIAC 2.5-6.25 MG TAB 877755 BISOPROLOL-HCTZ Inactive ZIAC 2.5-6.25 MG TAB 1 tablet daily for high blood pressure 10/27 ZIAC 2.5-6.25 MG TAB 082336 BISOPROLOL-HCTZ Inactive HYDROXYZINE HCL 25 MG TABS Take one (1) tablet by mouth twice a day HYDROXYZINE HCL 25 MG TABS 244471 HYDROXYZINE HCL Inactive ANUSOL-HC 25 MG SUPPOSITORY 1 rectally every 12 hours for irritation ANUSOL-HC 25 MG SUPPOSITORY 6963605 HYDROCORTISONE NAEL (RECTAL ) Inactive HYDROXYZINE HCL 25 MG TAB 1 two times a day as needed for anxiety HYDROXYZINE HCL 25 MG TAB 960738 HYDROXYZINE HCL Inactive FLOMAX 0.4 MG CAPS 1 capsule in the evening for night time urination. FLOMAX 0.4 MG CAPS 552078 TAMSULOSIN HCL Inactive CLEMASTINE FUMARATE 1.34 MG ORAL TABS 1 tab PO BID CLEMASTINE FUMARATE 1.34 MG ORAL TABS 638371 CLEMASTINE FUMARATE Inactive POLY-IRON 150 150 MG CAPS 1 tab po bid POLY-IRON 150 150 MG CAPS POLYSACCHARIDE IRON COMPLEX Inactive NYSTATIN 053709 UNIT/GM CREA apply to rash TID PRN NYSTATIN 757108 UNIT/GM CREA 882296 NYSTATIN Inactive IGMBHCN-FSIBJALQB-WPOI 167-83-8 MG TABS 1 tab po daily UKWLCTB-BSLSSUNDP-EEZL 167-83-8 MG TABS XSOVDKI-JQDCPSMQZ-FBOI Inactive CHANTIX 1 MG TABS 1 twice a day CHANTIX 1 MG TABS VARENICLINE TARTRATE Inactive MS CONTIN 100 MG UK38O-ZQA 1 by mouth twice a day MS CONTIN 100 MG VU64A-PXR MORPHINE SULFATE Inactive ENDOCET 10-325 MG TABS 1 by mouth twice a day ENDOCET 10-325 MG TABS 6724023 OXYCODONE-ACETAMINOPHEN Inactive HYDROXYZINE HCL 25 MG TAB take 1 every 4-6 hours as needed 07/01 HYDROXYZINE HCL 25 MG TAB 999773 HYDROXYZINE HCL Inactive ALPRAZOLAM 2 MG TABS 1 tablet by mouth three times daily as needed ALPRAZOLAM 2 MG TABS 764320 ALPRAZOLAM Inactive NEXIUM 40 MG CPDR 1 cap by mouth daily NEXIUM 40 MG CPDR 694049 ESOMEPRAZOLE MAGNESIUM Inactive Advance Directives Directive Description [...] Measured Encounters Code Encounter Date Provider Facility CPT-60874 Level 4 Est. Patient 10:10:03 CDT Wily Zhang [facility] CPT-60102 Level 3 Est. Patient 14:25:57 CDT Wily Zhang [facility] CPT-08159 Level 3 Est. Patient 09:51:37 [employer] Wily Gonzalez [facility] CPT-97984 Level 3 Est. Patient 11:07:48 CDT Wily Zhang [facility] CPT-19807 Level 3 Est. Patient 11:24:24 CDT Wily Gonzalez [facility] CPT-60403 Level 3 Est. Patient 15:19:54 [employer]EL[employer] Wily Zhang [facility] CPT-50182 Level 3 Est. Patient 10:04:45 CDT Wily Gonzalez [facility] CPT-66873 Level 3 Est. Patient 13:04:06 CDT Wily Gonzalez [facility] CPT-41130 Level 3 Est. Patient 12:23:04 CDT Wily Gonzalez [facility] CPT-15855 Level 3 Est. Patient 15:43:10 [employer]EL[employer] Wily Gonzalez [facility] CPT-75336 Level 3 Est. Patient 16:10:54 CDT Wily Gonzalez [facility] CPT-49412 Level 3 Est. Patient 19:50:51 CDT Wily Gonzalez [facility] CPT-57451 Level 3 Est. Patient 12:02:30 [employer] DEVELOPER Wily Gonzalez [facility] CPT-66105 Level 3 Est. Patient 12:03:11 [employer] DEVELOPER Wily Gonzalez [facility] CPT-35850 Level 3 Est. Patient 12:01:41 [employer] DEVELOPER Wily Gonzalez [facility] CPT-16933 Level 3 Est. Patient 11:51:24 [employer]ELOPER Wily Gonzalez [facility] CPT-89572 Level 3 Est. Patient 11:58:20 [employer]ELOPER Wily Gonzalez [facility] CPT-01271 Level 3 Est. Patient 08:31:36 [employer]EL[employer] Wily Gonzalez [facility] CPT-37770 Level 3 Est. Patient 21:57:36 CDT Wily Gonzalez [facility] CPT-36952 Level 3 Est. Patient 10:49:58 CDT Esvin PAULA [facility] CPT-70205 Level 3 Est. Patient 11:22:52 CDT Esvin PAULA [facility] CPT-92467 Level 3 Est. Patient 13:49:41 CDT Esvin PAULA [facility] CPT-86921 Level 3 Est. Patient 11:54:53 CDT Esvin Byers PA [facility] CPT-34097 Level 3 Est. Patient 09:07:11 CDT Esvin Byers PA [facility] CPT-84110 Level 3 Est. Patient 13:52:47 CDT Esvin Tristan PA [facility] CPT-70904 Level 3 Est. Patient 11:26:46 CDT Esvin Hudson CHAI [facility] CPT-43320 Level 3 Est. Patient 10:25:00 [employer] DEVELOPER Esvin Tristan PA [facility] CPT-68062 Level 3 Est. Patient 11:39:11 [employer] MOBI[employer] DEVELOPER Esvin PAULA [facility] CPT-49691 Level 3 Est. Patient 13:24:24 J[employer] DEVELOPER Esvin Tristan PA [facility] CPT-94418 Level 3 Est. Patient 10:26:13 J[employer]BILE DEVELOPER Esvin Byers PA [facility] CPT-66890 Level 3 Est. Patient 10:21:21 CDT Esvin Byers PA [facility] CPT-97631 Level 3 Est. Patient 10:26:30 CDT Esvin Tristan PA [facility] CPT-75410 Level 3 Est. Patient 09:16:37 CDT Esvin Tristan PA [facility]-88519 Level 3 Est. Patient 09:06:58 CDT Esvin Tristan PA [facility] CPT-89381 Level 3 Est. Patient 10:05:[address] [facility] CPT-24585 Level 3 Est. Patient 10:38:[address] [facility] CPT-88057 Level 3 Est. Patient 10:09:45 CDT Esvin Byers [facility] CPT-93288 Level 3 Est. Patient 09:26:37 CDT Esvin Hudson [facility] CPT-23028 Level 3 Est. Patient 10:34:42 [employer] DEVELOPER Esvin Hudson [facility] CPT-00102 Level 3 Est. Patient 10:45:47 [employer] DEVELOPER Esvin Tristan [facility] CPT-55234 Level 3 Est. Patient 10:45:22 [employer] DEVELOPER Esvin Byers [facility] CPT-63808 Level 3 Est. Patient 14:18:30 [employer] DEVELOPER Esvin [facility] CPT-61698 Level 3 Est. Patient 13:53:29 [employer] DEVELOPER Esvin [facility] CPT-00792 Level 3 Est. Patient 10:34:11 CDT Esvin [facility] Procedures Code Procedure Name Date Entry Date Standard Description CPT-78137 Smoking Cessation counseling 10:10:03 CDT CPT-75372 Smoking Cessation counseling 14:25:57 CDT CPT-60283 Bone Density - XRAY USE ONLY 11:29:32 CDT CPT-92788 LS spine AP and Lat - XRAY USE ONLY 10:07:43 [employer]ELOPER 10/26 CPT-46880 Venipuncture Draw Fee 09:51:16 [employer]EL[employer] CPT-61728 Smoking Cessation counseling 09:39:47 [employer]ELOPER CPT-G0438 Initial Annual Wellness Exam 09:37:28 [employer]EL[employer] CPT-57832 Venipuncture Draw Fee 09:26:55 CDT CPT-43939 Venipuncture Draw Fee 11:55:52 CDT CPT-23072 Spec Collection and Handling Fee 09:16:37 CDT CPT-79736 Venipuncture Draw Fee 09:16:37 CDT
== END 2018-02-26 14:37 | disposition home or self-care (01) ==
LOC: ER 14:09
DX: S80.261A Insect bite (nonvenomous), right knee, initial encounter (principal); S80.262A Insect bite (nonvenomous), left knee, initial encounter; F17.200 Nicotine dependence, unspecified, uncomplicated; Z88.1 Allergy status to other antibiotic agents; Z88.2 Allergy status to sulfonamides; W57.XXXA Bitten or stung by nonvenomous insect and other nonvenomous arthropods, initial encounter
CPT/HCPCS: 99282

== ENCOUNTER → 2021-02-08 | Outpatient (CLI) | payer MEDICARE ==
[~2021-02-08] MED LIST: ALPR2TAB6; CYCL10TA9; MORP100C16; MTP25TSR; OXYC-556
--- NOTE | 2021-02-08 16:51 | Diagnostic Imaging Report ---
EXAMINATION: CT chest without contrast (lung screening). TECHNIQUE: Multiple contiguous axial images were obtained through the chest without the use of intravenous contrast according to lung cancer screening protocol. All CT scans use one or more of the following dose optimizing techniques: automated exposure control, MA and/or KvP adjustment based on patient size and exam type or iterative reconstruction. HISTORY: 30 pack year history of smoking. COMPARISON: None available. FINDINGS: There is no edema or pneumonia. No pleural effusion. No pneumothorax. No suspicious nodules. There is no axillary or supraclavicular lymphadenopathy. There is no mediastinal lymphadenopathy. Heart size is normal. There are no coronary artery calcifications. No pericardial effusion. Aorta is normal in caliber. There is a 3.4 x 2.3 cm subcutaneous low attenuating lesion in the right lower back. Limited views of the upper abdomen are unremarkable. There are no suspicious osseous lesions. There are old right-sided rib fractures. There is a chronic appearing T12 compression fracture. IMPRESSION: 1. No suspicious pulmonary nodules. LUNG-RADS CATEGORY: 1 MODIFIER: None. Dictated by: Dictated on workstation # [id number]
== END ==
LOC: RAD 12:15
PROVIDERS: ATTEND Family Medicine
DX: Z12.2 Encounter for screening for malignant neoplasm of respiratory organs (principal); F17.210 Nicotine dependence, cigarettes, uncomplicated
CPT/HCPCS: 71271

== ENCOUNTER 2022-04-08 18:02 | Emergency (ER) | payer MEDICARE, OTHER ==
[~2022-04-08] VITALS: Ht 172.7 cm; Wt 63.5 kg
[~2022-04-08 18:02] MED LIST changes: +CYCL10TA25; -CYCL10TA9; -MORP100C16; +[UNRECOGNIZED DRUG - CODE]
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
[2022-04-08] MEDS ORDERED: LACTATED RINGERS 1,000 ML IV ONE (18:30)
[2022-04-08] MEDS ORDERED: LOPERAMIDE 2 MG (IMODIUM) TABLET PO ONE (18:30)
[2022-04-08 18:34] LABS: BASOPHILS % (AUTO) 0 % (0-10); EOSINOPHILS % (AUTO) 0 % (0-10); HEMATOCRIT 47 % (40-54); HEMOGLOBIN 15.9 g/dL (13.3-17.7); LYMPHOCYTES # (AUTO) 0.7 10^3/uL (1.0-4.0); LYMPHOCYTES % (AUTO) 7 % (12-44); MEAN CORPUSCULAR HEMOGLOBIN 30 pg (25-34); MEAN CORPUSCULAR HGB CONC 34 g/dL (32-36); MEAN CORPUSCULAR VOLUME 88 fL (80-99); MONOCYTES # (AUTO) 0.5 10^3/uL (0.0-1.0); MONOCYTES % (AUTO) 5 % (0-12); NEUTROPHILS # (AUTO) 8.9 10^3/uL (1.8-7.8); NEUTROPHILS % (AUTO) 88 % (42-75); PLATELET COUNT 440 10^3/uL (130-400); WHITE BLOOD COUNT 10.1 10^3/uL (4.3-11.0)
[2022-04-08 18:49] LABS: POTASSIUM 3.2 MMOL/L (3.6-5.0)
[2022-04-08 18:50] LABS: BAND NEUTROPHILS 0 %; BASOPHILS % (MANUAL) 0 %; CALCIUM 10.1 MG/DL (8.5-10.1); EOSINOPHILS % (MANUAL) 0 %; LYMPHOCYTES % (MANUAL) 10 %; MONOCYTES % (MANUAL) 0 %; NEUTROPHILS % (MANUAL) 90 %; RBC MORPH NORMAL
[2022-04-08 18:55] LABS: CREATININE SERUM 0.82 MG/DL (0.60-1.30)
[2022-04-08 20:07] LABS: BILIRUBIN,URINE NEGATIVE (NEGATIVE); CLARITY,URINE CLEAR; COLOR,URINE YELLOW; GLUCOSE, URINE (UA) NEGATIVE (NEGATIVE); KETONES,URINE 2+ (NEGATIVE); LEUKOCYTE ESTERASE ,URINE NEGATIVE (NEGATIVE); NITRITE,URINE NEGATIVE (NEGATIVE); PROTEIN,URINE NEGATIVE (NEGATIVE)
[2022-04-08 20:12] LABS: BACTERIA,URINE TRACE /HPF
[2022-04-08 20:27] LABS: AMPHETAMINE SCREEN, URINE POSITIVE (NEGATIVE); BARBITURATE SCREEN URINE NEGATIVE (NEGATIVE); BENZODIAZEPINES SCREEN URINE POSITIVE (NEGATIVE); CANNABINOID SCREEN, URINE POSITIVE (NEGATIVE); COCAINE SCREEN URINE NEGATIVE (NEGATIVE); METHADONE STAT NEGATIVE (NEGATIVE); OPIATE SCREEN URINE POSITIVE (NEGATIVE); OXYCODONE STAT NEGATIVE (NEGATIVE); PROPOXYPHENE STAT NEGATIVE (NEGATIVE); TRICYCLIC ANTIDEPRESSANTS SCRE NEGATIVE (NEGATIVE)
[2022-04-08] MEDS ORDERED: LORA-404 PO (20:35)
[2022-04-08] MEDS ORDERED: ONDA4TAB11 PO (20:35)
[2022-04-08] MEDS ORDERED: RX-ONDANSETRON 4 MG ODT (ZOFRAN) PPK #4 PO STA (20:37)
[2022-04-08 20:59] VITALS: BP 169/88
== END 2022-04-08 20:59 | disposition home or self-care (01) ==
LOC: EDUNIT# 18:02 → ER 18:07
DX: E86.0 Dehydration (principal); F11.23 Opioid dependence with withdrawal; F41.9 Anxiety disorder, unspecified; Z79.899 Other long term (current) drug therapy
CPT/HCPCS: 36415; 80048; 80306; 81000; 83735; 85007; 85027

== ENCOUNTER 2023-01-13 22:15 | Emergency (ER) | payer MEDICARE ==
[~2023-01-13 22:15] MED LIST changes: +LORA-404 PO; +ONDA4TAB11 PO
[2023-01-13 22:16] VITALS: BP 162/92
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
--- NOTE | 2023-01-14 08:32 | Diagnostic Imaging Report ---
PROCEDURE: CT thoracic and lumbar spine without contrast. TECHNIQUE: Multiple contiguous axial images were obtained through the thoracic and lumbar spine without the use of intravenous contrast. Sagittal and coronal reformations were then performed. All CT scans use one or more of the following dose optimizing techniques: automated exposure control, MA and/or KvP adjustment based on a patient size and exam type, or iterative reconstruction. INDICATION: Fall, complaining of back pain. No prior studies are available for comparison. CT thoracic spine: Alignment of the thoracic spine is normal. There is some mild anterior and central compression involving the T12 vertebral body. This appears to be chronic. Central canal is widely patent. Remaining thoracic vertebrae show normal stature. There is generalized thoracic spondylosis. Paraspinous tissues are unremarkable. IMPRESSION: Chronic appearing compression deformity T12 vertebral body without evidence of retropulsion. No acute bony abnormality is detected. CT LUMBAR SPINE: There is normal lordotic curvature. There is minimal retrolisthesis of L1 on L2 and L2 on L3. There is moderate compression deformity involving the L1 vertebral body which appears chronic. There is no retropulsion. Remaining lumbar vertebrae demonstrate normal stature. There is generalized spondylosis with variable disc space narrowing and marginal spurring noted. Paraspinous tissues are unremarkable. IMPRESSION: Moderate chronic appearing compression deformity L1 vertebral body without evidence of retropulsion. No acute bony abnormality is detected. Dictated by: Dictated on workstation # [id number]
== END 2023-01-14 01:00 | disposition left against medical advice (07) ==
LOC: EDUNIT# 22:15 → ER 22:17
DX: M25.551 Pain in right hip (principal); M54.50 Low back pain, unspecified; F17.200 Nicotine dependence, unspecified, uncomplicated; W19.XXXA Unspecified fall, initial encounter
CPT/HCPCS: 72128; 72131

== ENCOUNTER 2023-04-19 18:42 | Emergency (ER) | payer MEDICARE ==
[~2023-04-19] VITALS: Ht 172.7 cm; Wt 63.5 kg
--- NOTE | 2023-04-19 19:35 | ED Lower Extremity ---
General Chief Complaint: Lower Extremity Stated Complaint: RASH ON LOWER LEGS Nursing Triage Note: PT TO ROOM BY WHEELCHAIR. PT STATES HE NOTICED REDNESS, SWELLING, AND PAIN IN BILATERAL LOWER EXTREMETIES ON SATURDAY EVENING WHEN HE WOKE UP. STATES PAIN IN LOWER EXTREMETIES IS 10/10. PT IS A&OX4, SPEECH NORMAL ON ARRIVAL Source: patient Exam Limitations: no limitations History of Present Illness Date Seen by Provider: Apr 19, 2023 Time Seen by Provider: 19:24 Initial Comments 67-year-old male presents to the ER with complaint of swelling in his lower extremities starting on Saturday, and redness in the lower extremity starting yesterday. He denies any known allergies to these areas. Denies fevers. Denies history of DVTs. He had ankle surgery previously on the left ankle, states that it occasionally swells, but it is much more swollen than normal. Denies chest pain, shortness of air, abdominal pain, nausea, vomiting, diarrhea. Allergies and Home Medications Allergies Coded Allergies: sulfamethoxazole (Verified Adverse Reaction, Mild, upset stomach, 02/26/18) trimethoprim (Verified Adverse Reaction, Mild, upset stomach, 02/26/18) Uncoded Allergies: LIDOCAINE PATCH (Adverse Reaction, Unknown, 02/26/18) Patient Home Medication List Home Medication List Reviewed: Yes Alprazolam (Alprazolam) 2 Mg Tablet, (Reported) Entered as Reported by: KAYLA CHENG on 02/26/18 143 Cephalexin (Cephalexin) 500 Mg Tablet, 500 MG PO QID Prescribed by: Avelina Larios on 04/19/232040 Cyclobenzaprine HCl (Cyclobenzaprine HCl) 10 Mg Tablet, (Reported) Entered as Reported by: KAYLA CHENG on 02/26/18 143 Lorazepam (Ativan) 0.5 Mg Tablet, 0.5-1 MG PO TID PRN for ANXIETY Prescribed by: NALINI CASTILLO on 04/08/222035 Metoprolol Succinate (Metoprolol Succinate) 25 Mg Tab.er.24h, (Reported) Entered as Reported by: KAYLA CHENG on 02/26/18 143 Morphine Sulfate (Morphine Sulfate ER) 100 Mg Cap.er.pel, (Reported) Entered as Reported by: KAYLA CHENG on 02/26/18 1431 Ondansetron (Ondansetron Odt) 4 Mg Tab.rapdis, 4-8 MG PO Q6H PRN for NAUSEA-1ST LINE Prescribed by: NALINI CASTILLO on 04/08/222034 Oxycodone HCl/Acetaminophen (Oxycodone-Acetaminophen 10-325) 1 Each Tablet, (Reported) Entered as Reported by: KAYLA CHENG on 02/26/18 143 Review of Systems Constitutional: see HPI Past Cun[place]-Hihmjt-Bkrjgh Hx Patient Social History Tobacco Use?: Yes Tobacco type used: Cigarettes Smoking Status: Current Everyday Smoker Substance use?: Yes Substance type: Marijuana Alcohol Use?: Yes Alcohol Frequency: Once in a while Immunizations Up To Date Influenza Vaccine Up-to-Date: No; Not Current Seasonal Allergies Seasonal Allergies: No Past Medical History Surgeries: Yes (Ankle) Orthopedic Respiratory: No Cardiac: No Neurological: No Genitourinary: No Gastrointestinal: No Musculoskeletal: Yes Chronic Back Pain Endocrine: No HEENT: No Cancer: No Psychosocial: Yes Anxiety Integumentary: Yes (Current chigger bites along with bed bug bites) Recent Skin Changes Blood Disorders: No Physical Exam Vital Signs Vital Signs - First Documented 04/19/23 18:55 Temp 37.5 Pulse 95 Resp 22 B/P (MAP) 183/100 (127) Pulse Ox 97 Capillary Refill : Height, Weight, BMI Height: 5'8.00" Weight: 160lbs. oz. 72.488955pc; 21.00 BMI Method:Stated General Appearance: WD/WN, no apparent distress Neck: supple, normal inspection Cardiovascular: regular rate, rhythm Respiratory: lungs clear, normal breath sounds, no respiratory distress, no accessory muscle use Legs: bilateral leg pain, bilateral leg soft tissue tenderness, bilateral leg swelling (Nonpitting), bilateral leg other (Sensation intact, cap refill less than 2 seconds, pulses intact, area of redness is warm to the touch) Neurologic/Psychiatric: alert, normal mood/affect Skin: warm/dry Progress/Results/Core Measures Results/Orders Lab Results Laboratory Tests Test 04/19/23 19:42 Range/Units White Blood Count 8.3 4.3-11.0 10^3/uL Red Blood Count 4.16 L 4.30-5.52 10^6/uL Hemoglobin 12.6 L 13.3-17.7 g/dL Hematocrit 38 L 40-54 % Mean Corpuscular Volume 91 80-99 fL Mean Corpuscular Hemoglobin 30 25-34 pg Mean Corpuscular Hemoglobin Concent 33 32-36 g/dL Red Cell Distribution Width 12.9 10.0-14.5 % Platelet Count 325 130-400 10^3/uL Mean Platelet Volume 8.5 L 9.0-12.2 fL Immature Granulocyte % (Auto) 1 % Neutrophils (%) (Auto) 77 H 42-75 % Lymphocytes (%) (Auto) 12 12-44 % Monocytes (%) (Auto) 9 0-12 % Eosinophils (%) (Auto) 1 0-10 % Basophils (%) (Auto) 1 0-10 % Neutrophils # (Auto) 6.3 1.8-7.8 10^3/uL Lymphocytes # (Auto) 1.0 1.0-4.0 10^3/uL Monocytes # (Auto) 0.8 0.0-1.0 10^3/uL Eosinophils # (Auto) 0.1 0.0-0.3 10^3/uL Basophils # (Auto) 0.1 0.0-0.1 10^3/uL Immature Granulocyte # (Auto) 0.0 0.0-0.1 10^3/uL Prothrombin Time 12.5 12.2-14.7 SEC INR Comment 0.9 0.8-1.4 Activated Partial Thromboplast Time 37 H 24-35 SEC D-Dimer 1.00 H 0.00-0.49 UG/ML Sodium Level 135 135-145 MMOL/L Potassium Level 4.0 3.6-5.0 MMOL/L Chloride Level 99 98-107 MMOL/L Carbon Dioxide Level 28 21-32 MMOL/L Anion Gap 8 5-14 MMOL/L Blood Urea Nitrogen 19 H 7-18 MG/DL Creatinine 1.14 0.60-1.30 MG/DL Estimat Glomerular Filtration Rate 71 BUN/Creatinine Ratio 17 Glucose Level 101 70-105 MG/DL Calcium Level 9.3 8.5-10.1 MG/DL Corrected Calcium 9.4 8.5-10.1 MG/DL Total Bilirubin 0.3 0.1-1.0 MG/DL Aspartate Amino Transf (AST/SGOT) 17 5-34 U/L Alanine Aminotransferase (ALT/SGPT) 16 0-55 U/L Alkaline Phosphatase 86 40-136 U/L B-Type Natriuretic Peptide < 10.0 <100.0 PG/ML Total Protein 7.0 6.4-8.2 GM/DL Albumin 3.9 3.2-4.5 GM/DL My Orders Orders - AVELINA WADE [employer] AIDE Cbc With Automated Diff (04/19/23 19:31) Comprehensive Metabolic Panel (04/19/23 19:31) Bnp [place] (04/19/23 19:31) Fibrin Degradation Products (04/19/23 19:31) Ed Iv/Invasive Line Start (04/19/23 19:31) Protime With Inr (04/19/23 19:57) Partial Thromboplastin Time (04/19/23 19:57) Cephalexin Capsule (Cephalexin Capsule) (04/19/23 20:30) Apixaban Tablet (Apixaban Tablet) (04/19/23 20:30) Medications Given in ED Current Medications Medications Dose Ordered Sig/David Route Start Time Stop Time Status Last Admin Dose Admin Apixaban 10 mg ONCE ONCE PO 04/19/23 20:30 04/19/23 20:33 DC 04/19/23 20:41 10 MG Cephalexin HCl 500 mg ONCE ONCE PO 04/19/23 20:30 04/19/23 20:33 DC 04/19/23 20:41 500 MG Vital Signs/I&O 04/19/23 18:55 Temp 37.5 Pulse 95 Resp 22 B/P (MAP) 183/100 (127) Pulse Ox 97 Blood Pressure Mean: 127 Progress Progress Note : Progress Note Patient seen and evaluated, resting comfortably in bed, no acute distress. Based on exam and symptoms, this is likely cellulitis of bilateral lower extremities, but work-up initiated to rule out other causes including DVT and heart failure. CMP, CBC, and BNP, D-dimer ordered. 2030 Labs reviewed. CBC shows mild anemia. CMP grossly normal. BNP normal. Coags normal. D-dimer slightly elevated 1.0. Due to elevated D-dimer, next day outpatient ultrasound ordered for tomorrow. I called and spoke with the batch room technician, he spoke with the biofuels production technician who states he will see the patient at 8 AM tomorrow. Will go ahead and give 1 dose of Eliquis tonight. Will treat for cellulitis. First dose of Keflex ordered tonight. Will discharge with prescription for Keflex. Will defer prescription for Eliquis until ultrasound report. Results and plan of care discussed with patient. Discharge instructions and return precautions provided. Departure Impression Primary Impression: Cellulitis Additional Impression: Elevated d-dimer Disposition: HOME, SELF-CARE Condition: Stable Departure-Patient Inst. Decision time for Depature: 20:37 Referrals: NO,LOCAL PHYSICIAN (PCP/Family) Primary Care Physician Patient Instructions: Cellulitis (Skin Infection), Adult (DC) Add. Discharge Instructions: Complete full course of antibiotic as prescribed. This has been sent to the pharmacy. Return tomorrow 15 minutes prior to 8:00 for your ultrasound. You will check in at ER registration and let them know that you are here for an ultrasound. Please bring your order form with you. If your ultrasound is positive for a DVT, you will be prescribed an anticoagulant. Return if the redness increases, swelling worsens, or any other new, concerning, or worsening symptoms. All discharge instructions reviewed with patient and/or family. Voiced understanding. Scripts Cephalexin (Cephalexin) 500 Mg Tablet 500 MG PO QID for 10 Days, #40 TAB 0 Refills Prov: AVELINA WADE APRN 04/19/23 AVELINA WADE APRN Apr 19, 2023 19:35
[2023-04-19 19:49] LABS: BASOPHILS # (AUTO) 0.1 10^3/uL (0.0-0.1); BASOPHILS % (AUTO) 1 % (0-10); EOSINOPHILS # (AUTO) 0.1 10^3/uL (0.0-0.3); EOSINOPHILS % (AUTO) 1 % (0-10); HEMATOCRIT 38 % (40-54); HEMOGLOBIN 12.6 g/dL (13.3-17.7); LYMPHOCYTES % (AUTO) 12 % (12-44); MEAN CORPUSCULAR HEMOGLOBIN 30 pg (25-34); MEAN CORPUSCULAR HGB CONC 33 g/dL (32-36); MEAN CORPUSCULAR VOLUME 91 fL (80-99); MEAN PLATELET VOLUME 8.5 fL (9.0-12.2); MONOCYTES # (AUTO) 0.8 10^3/uL (0.0-1.0); MONOCYTES % (AUTO) 9 % (0-12); NEUTROPHILS # (AUTO) 6.3 10^3/uL (1.8-7.8); NEUTROPHILS % (AUTO) 77 % (42-75); PLATELET COUNT 325 10^3/uL (130-400); WHITE BLOOD COUNT 8.3 10^3/uL (4.3-11.0)
[2023-04-19 20:08] LABS: ALBUMIN 3.9 GM/DL (3.2-4.5); BILIRUBIN,TOTAL 0.3 MG/DL (0.1-1.0); CALCIUM 9.3 MG/DL (8.5-10.1); CREATININE SERUM 1.14 MG/DL (0.60-1.30)
[2023-04-19 20:11] LABS: INR 0.9 (0.8-1.4); PROTHROMBIN TIME PATIENT 12.5 SEC (12.2-14.7)
[2023-04-19] MEDS ORDERED: CEPHALEXIN 250 MG CAPSULE PO ONE (20:30)
[2023-04-19] MEDS ORDERED: APIXABAN 5 MG TABLET PO ONE (20:30)
[2023-04-19] MEDS ORDERED: CEPH500T PO (20:41)
[2023-04-19 21:00] VITALS: BP 160/94
== END 2023-04-19 21:03 | disposition home or self-care (01) ==
LOC: EDUNIT# 18:42 → ER 18:48
DX: L03.116 Cellulitis of left lower limb (principal); L03.115 Cellulitis of right lower limb; R79.1 Abnormal coagulation profile; F17.210 Nicotine dependence, cigarettes, uncomplicated; Z88.2 Allergy status to sulfonamides
CPT/HCPCS: 36415; 80053; 83880; 85025; 85379; 85610; 85730

== ENCOUNTER → 2023-04-25 | Outpatient (CLI) | payer MEDICARE ==
[~2023-04-25] MED LIST changes: +CEPH500T PO
--- NOTE | 2023-04-25 13:13 | Diagnostic Imaging Report ---
PROCEDURE: US Venous Lower Ext Jonas. TECHNIQUE: Multiple real-time grayscale images were obtained over the lower extremities in various projections, bilaterally. Additional duplex Doppler and color Doppler images were also obtained. INDICATION: Bilateral lower extremity edema. There is no evidence of right or left lower extremity DVT. Both lower extremity deep venous systems demonstrate normal compressibility with normal response to augmentation and Valsalva. No fluid collection or mass is detected. IMPRESSION: No evidence of right or left lower extremity DVT. Dictated by: Dictated on workstation # [id number]
== END ==
LOC: RAD 11:59
PROVIDERS: ATTEND Nurse Practitioner
DX: R60.0 Localized edema (principal)
CPT/HCPCS: 93970